=== PATIENT | female | born 1960 | race Caucasian/White ===

== ENCOUNTER 2020-03-11 | Outpatient (REF) | payer MEDICARE, OTHER, SELFPAY ==
[2020-03-11 07:54] LABS: Hematocrit 37.9 % (37-47); Hemoglobin 12.2 g/dl (12.0-16.0); Mean Corpuscular HGB Conc 32.2 g/dl (31.0-35.0); Mean Corpuscular Hemoglobin 30.2 pg (27.0-33.0); Mean Corpuscular Volume 93.8 fL (80-98); Mean Platelet Volume 10.5 fL (9.4-12.3); Platelet Count 321 X10*3/uL (160-400); Red Blood Count 4.04 X10*6/uL (4.20-5.50); Red Cell Distribution Width 13.7 % (11.0-16.0); White Blood Count 4.9 X10*3/uL (4.8-10.8)
[2020-03-11 08:23] LABS: Anion Gap 12 (12-20); Blood Urea Nitrogen 15 mg/dL (9-16); Calcium 9.2 mg/dL (8.4-10.2); Carbon Dioxide 31 mmol/L (22-29); Chloride 104 mmol/L (96-108); Estimated Glomerular Filt Rate > 60; Glucose Random 83 mg/dL (60-115); Potassium 5.2 mmol/l (3.3-5.1); Sodium 142 mmol/L (135-145)
== END 2020-03-11 00:01 | disposition home or self-care (01) ==
LOC: HO.MMNH1L
PROVIDERS: Visit Provider Family Medicine
DX: S82.92XD Unspecified fracture of left lower leg, subsequent encounter for closed fracture with routine healing (principal)
CPT/HCPCS: 36415; 80048; 85027

== ENCOUNTER 2020-03-18 | Outpatient (REF) | payer SELFPAY ==
[2020-03-18 06:25] LABS: Hematocrit 39.2 % (37-47); Hemoglobin 12.6 g/dl (12.0-16.0); Mean Corpuscular HGB Conc 32.1 g/dl (31.0-35.0); Mean Corpuscular Volume 93.3 fL (80-98); Platelet Count 285 X10*3/uL (160-400); Red Cell Distribution Width 13.6 % (11.0-16.0); White Blood Count 4.9 X10*3/uL (4.8-10.8)
[2020-03-18 07:01] LABS: Anion Gap 13 (12-20); Blood Urea Nitrogen 13 mg/dL (9-16); Calcium 9.1 mg/dL (8.4-10.2); Carbon Dioxide 30 mmol/L (22-29); Chloride 104 mmol/L (96-108); Estimated Glomerular Filt Rate > 60; Glucose Random 96 mg/dL (60-115); Sodium 142 mmol/L (135-145)
== END 2020-03-18 00:01 | disposition home or self-care (01) ==
LOC: HO.MMNH1L
PROVIDERS: Visit Provider Family Medicine
DX: S82.92XA Unspecified fracture of left lower leg, initial encounter for closed fracture (principal)
CPT/HCPCS: 36415; 80048; 85027

== ENCOUNTER 2020-04-10 15:05 | Emergency (ER) | payer MEDICARE, OTHER, SELFPAY ==
[2020-04-10 15:27] VITALS: BP 110/62; BP 118/73; PULSE 101; PULSE 105; RESP 18; TEMP 37.3; O2SAT 98; O2SAT 99; BMI 26.6
[2020-04-10 15:38] LABS: Glucose, Whole Blood 79 mg/dL (60-115)
--- NOTE | 2020-04-10 15:54 | ECG_ITS ---
Test Reason : WEAKNESS Blood Pressure : / mmHG Vent. Rate : 100 BPM Atrial Rate : 100 BPM P-R Int : 156 ms QRS Dur : 070 ms QT Int : 324 ms P-R-T Axes : 057 042 072 degrees QTc Int : 417 ms Poor data quality Normal sinus rhythm Normal ECG No significant changes seen Referred By: Meeta Henao Electronically Signed By:FEDERICO DAVILA MD
--- NOTE | 2020-04-10 15:54 | XR_ITS ---
EXAMINATION: XR CHEST CLINICAL INFORMATION: Weakness. COMPARISON: Chest done on 05/22/2019. TECHNIQUE: Frontal view of the chest was obtained. FINDINGS: Previously documented multifocal airspace disease shows interval resolution. Currently both lung bustamante are clear. The cardiac mediastinal silhouette is within normal limit. There is no pleural effusion or pneumothorax present. The heart size is within normal limit. Visualized upper abdomen is unremarkable. XR/XR chest 1V IMPRESSION: Unremarkable radiographic appearance of the chest. Interval resolution of multifocal airspace disease since 05/22/2019.
[2020-04-10 16:10] LABS: Basophils Percent Auto 0.3 % (0-2); Eosinophils Absolute Auto 0.1 X10*3/uL (0.0-0.4); Eosinophils Percent Auto 1.7 % (0-4); Hematocrit 43.6 % (37-47); Hemoglobin 13.9 g/dl (12.0-16.0); Imm Gran Abs Auto 0.02 X10*3/uL (0.00-0.03); Imm Gran Pct Auto 0.3 % (0.0-0.4); Lymphocytes Absolute Auto 0.4 X10*3/uL (1.2-4.9); Lymphocytes Percent Auto 7.1 % (20-40); MANUAL DIFF FLAG SCAN; Mean Corpuscular HGB Conc 31.9 g/dl (31.0-35.0); Mean Corpuscular Hemoglobin 29.4 pg (27.0-33.0); Mean Corpuscular Volume 92.2 fL (80-98); Monocytes Absolute Auto 0.4 X10*3/uL (0.1-1.2); Monocytes Percent Auto 7.7 % (2-11); Neutrophils Absolute Auto 4.8 X10*3/uL (2.0-8.3); Neutrophils Percent Auto 82.9 % (45-73); Platelet Count 296 X10*3/uL (160-400); Red Blood Count 4.73 X10*6/uL (4.20-5.50); Red Cell Distribution Width 13.7 % (11.0-16.0); SCAN SMEAR FLAG 1; White Blood Count 5.8 X10*3/uL (4.8-10.8)
[2020-04-10 16:12] LABS: Glucose Urine UA NEG (NEG); Leukocyte Esterase Urine NEG (NEG); Nitrite Urine NEG (NEG); Specific Gravity - Urine >= 1.030 (1.005-1.025); Urine Blood NEG (NEG); Urine Ketones 15 MG/DL (NEG); Urine Protein NEG (NEG-TRACE)
[2020-04-10 16:20] LABS: Prothrombin Time 12.4 SEC (10.8-13.0)
[2020-04-10 16:25] LABS: Appearance Urine CLEAR; Color Urine YELLOW
[2020-04-10 16:34] VITALS: BP 111/66; PULSE 93; RESP 16; O2SAT 97
[2020-04-10 16:35] LABS: Anion Gap 13 (12-20); Blood Urea Nitrogen 9 mg/dL (9-16); Calcium 8.8 mg/dL (8.4-10.2); Carbon Dioxide 30 mmol/L (22-29); Chloride 101 mmol/L (96-108); Creatinine Clr Calc Pharmacy 88.5; Estimated Glomerular Filt Rate > 60; Glucose Random 83 mg/dL (60-115); Potassium 4.3 mmol/l (3.3-5.1); Sodium 140 mmol/L (135-145)
[2020-04-10 16:42] LABS: SLIDE REVIEW VERIFIED
--- NOTE | 2020-04-10 17:16 | ED.WEAKNESS ---
HPI - Weakness General Chief complaint: Failure to Thrive Stated complaint: left knee pain Time Seen by Provider: 04/10/20 15:37 Source: patient and EMS Mode of arrival: EMS Limitations: physical limitation (Left patellar fracture) History of Present Illness HPI Narrative: 59yoF c PMHx of Left patellar fracture presenting to the ED c c/o gen weakness unable to care for herself at home including ADLs since she was released from [facility] after she was receiving rehab for her left patellar fracture. Denies any other symptoms complaints or concerns at this time. Related Data Allergies Allergy/AdvReac Type Severity Reaction Status Date / Time levofloxacin [Levaquin] Allergy Unknown Verified 11/17/17 00:00 No Known Allergies Allergy Unverified 02/22/20 17:12 [No Known Allergies*] Review of Systems Review of Systems: Constitutional : No Weight loss, No Fever, No Chills, No Night Sweats, No Fatigue, No Malaise ENT/Mouth : No Hearing loss, No Ear Pain, No Nasal Congestion, No Sinus Pain, No Hoarseness, No sore throat, No Rhinorrhea, No Swallowing Difficulty Eyes: No Eye Pain, No Swelling, No Redness, No Foreign Body, No Discharge, No Vision Changes Cardiovascular : No Chest Pain, No SOB, No Dyspnea on Exertion, No Orthopnea, No Edema, No Palpitations Respiratory : No Cough, No Sputum, No Wheezing, No Smoke Exposure, No Dyspnea Gastrointestinal : No Nausea, No Vomiting, No Diarrhea, No Constipation, No abdominal Pain, No Hematochezia, No Melena Genitourinary : no irregular bleeding, No Dysuria, No Urinary Frequency, No Hematuria, + Urinary Incontinence, No Urgency, No Flank Pain, No Urinary Flow Changes, No Hesitancy Musculoskeletal : + joint pain, No Myalgias, + Joint Swelling Skin : No Skin Lesions, No rash Neuro : No Weakness, No Numbness, No Paresthesias, No Loss of Consciousness, No Dizziness, No Headache Psych : No Anxiety/Panic, No Depression, No SI/HI/AH/VH, No Social Issues, Heme/Lymph: No Bruising, No Bleeding,No Lymphadenopathy Endocrine : No Polyuria, No Polydipsia, No Temperature Intolerance Yes all other systems are reviewed and are negative [facility] Past Medical History Attestation statement: The following information was validated with the patient. Social History Social History Advance Directives: No Advance Directives Information Provided: Yes Physical Exam Vital Signs: Vital Signs: Vital Signs Temp Pulse Resp BP Pulse Ox 04/10/20 16:34 93 16 111/66 97 04/10/20 15:27 99.2 F 101 H 18 110/62 98 Body Mass Index 26.6 vital signs have been reviewed as normal and appeared to be correct. Blood pressure normal. Heart rate normal. Respiration rate normal. Temperature normal. Oxygen saturation normal. Appearance: Alert. Oriented X3. No acute distress. Poor hygiene. Head: Normal external exam. Normocephalic. Patient noted to have old well healing ecchymosis to left upper eyelid/eyebrow. Eyes: PERRLA. EOMI. Conjunctiva and sclera normal. the rest of the Eyelids normal. ENT: EAC normal. TM's Normal. Pharynx normal. Uvula midline. Moist mucous membranes. Neck: Normal inspection. Neck supple. FROM. No meningeal signs. CVS: Normal heart rate and rhythm. Heart sound normal. No murmurs noted. Pulses normal throughout. Respiratory: No respiratory distress. Painless inspiration. Breath sounds normal. No wheezes/rales/rhonchi noted. Chest nontender. No accessory muscle usage noted or decreased air movement noted. Abdomen: Soft and nontender. Bowel sounds normal in all 4 quadrants. No distention noted. No organomegaly noted. No visible injury noted. Back: No CVA tenderness. Full range of motion noted. Skin: Patient has erythema to the groin area consistent with candidiasis a few wounds also noted. Patient was covered in urine and feces. Otherwise the restof the Skin warm and dry. Normal skin color. Normal skin turgor. No lacerations noted. Extremities: TTP of left knee at the patellar aspect c mild sts. No lower extremity edema. All other Extremities exhibit normal range of motion and nontender. Neuro: Oriented X 3. No motor deficit. No sensory deficit. Reflexes normal. Course Course Course Narrative: 16:30PM - 59yoF c PMHx of Left patellar fracture presenting to the ED c c/o gen weakness unable to care for herself at home including ADLs since she was released from [facility] after she was receiving rehab for her left patellar fracture. - on exam patient has very poor hygiene feces and urines under her nails, feces and urine stuck to her skin diaper is soaked in urine and feces. Otherwise no acute distress and vital signs are within normal limits. - will obtain labs, EKG. In house COVID swab. Case management consult along with PT. Then plan is for bed search for rehab. Sign-out to dilma at this time. MDM - Weakness Medical Records Attestation: I reviewed the patient's medical records. Lab Data Attestation: I reviewed the patient's lab results. Result diagrams: 04/10/20 16:00 04/10/20 16:00 Labs: Lab Results 04/10/20 04/10/20 04/10/20 Range/Units 15:20 16:00 16:00 WBC 5.8 (4.8-10.8) X10*3/uL RBC 4.73 (4.20-5.50) X10*6/uL Hgb 13.9 (12.0-16.0) g/dl Hct 43.6 (37-47) % MCV 92.2 (80-98) fL MCH 29.4 (27.0-33.0) pg MCHC 31.9 (31.0-35.0) g/dl RDW 13.7 (11.0-16.0) % Plt Count 296 (160-400) X10*3/uL MPV 9.0 L (9.4-12.3) fL Immature Gran % (Auto) 0.3 (0.0-0.4) % Neut % (Auto) 82.9 H (45-73) % Lymph % (Auto) 7.1 L (20-40) % [place] % (Auto) 7.7 (2-11) % Eos % (Auto) 1.7 (0-4) % Baso % (Auto) 0.3 (0-2) % Lymph # (Auto) 0.4 L (1.2-4.9) X10*3/uL [place] # (Auto) 0.4 (0.1-1.2) X10*3/uL Eos # (Auto) 0.1 (0.0-0.4) X10*3/uL Baso # (Auto) 0.0 (0.0-0.2) X10*3/uL Abs Immat Gran (auto) 0.02 (0.00-0.03) X10*3/uL Absolute Neuts (auto) 4.8 (2.0-8.3) X10*3/uL Absolute Nucleated RBC 0.000 (0.0-0.012) X10*3/uL Nucleated RBC % (auto) 0.0 (0.0-0.2) /100WBC Smear Tech's Comments VERIFIED PT 12.4 (10.8-13.0) SEC INR 1.0 (0.9-1.1) Sodium (135-145) mmol/L Potassium (3.3-5.1) mmol/l Chloride (96-108) mmol/L Carbon Dioxide (22-29) mmol/L Anion Gap (12-20) BUN (9-16) mg/dL Creatinine (0.5-1.4) mg/dL Estim Creat Clear Calc Estimated GFR POC Glucose 79 (60-115) mg/dL Random Glucose (60-115) mg/dL Calcium (8.4-10.2) mg/dL Magnesium (1.6-2.6) mg/dL Urine Color Urine Appearance Urine pH (5.0-8.0) Ur Specific [place] (1.005-1.025) Urine Protein (NEG-TRACE) MG/DL Urine Glucose (UA) (NEG) MG/DL Urine Ketones (NEG) MG/DL Urine Blood (NEG) Urine Nitrite (NEG) Ur Leukocyte Esterase (NEG) 04/10/20 04/10/20 Range/Units 16:00 16:00 WBC (4.8-10.8) X10*3/uL RBC (4.20-5.50) X10*6/uL Hgb (12.0-16.0) g/dl Hct (37-47) % MCV (80-98) fL MCH (27.0-33.0) pg MCHC (31.0-35.0) g/dl RDW (11.0-16.0) % Plt Count (160-400) X10*3/uL MPV (9.4-12.3) fL Immature Gran % (Auto) (0.0-0.4) % Neut % (Auto) (45-73) % Lymph % (Auto) (20-40) % [place] % (Auto) (2-11) % Eos % (Auto) (0-4) % Baso % (Auto) (0-2) % Lymph # (Auto) (1.2-4.9) X10*3/uL [place] # (Auto) (0.1-1.2) X10*3/uL Eos # (Auto) (0.0-0.4) X10*3/uL Baso # (Auto) (0.0-0.2) X10*3/uL Abs Immat Gran (auto) (0.00-0.03) X10*3/uL Absolute Neuts (auto) (2.0-8.3) X10*3/uL Absolute Nucleated RBC (0.0-0.012) X10*3/uL Nucleated RBC % (auto) (0.0-0.2) /100WBC Smear Tech's Comments PT (10.8-13.0) SEC INR (0.9-1.1) Sodium 140 (135-145) mmol/L Potassium 4.3 (3.3-5.1) mmol/l Chloride 101 (96-108) mmol/L Carbon Dioxide 30 H (22-29) mmol/L Anion Gap 13 (12-20) BUN 9 (9-16) mg/dL Creatinine 0.69 (0.5-1.4) mg/dL Estim Creat Clear Calc 88.5 Estimated GFR > 60 POC Glucose (60-115) mg/dL Random Glucose 83 (60-115) mg/dL Calcium 8.8 (8.4-10.2) mg/dL Magnesium 2.0 (1.6-2.6) mg/dL Urine Color YELLOW Urine Appearance CLEAR Urine pH 6.0 (5.0-8.0) Ur Specific [place] >= 1.030 H (1.005-1.025) Urine Protein NEG (NEG-TRACE) MG/DL Urine Glucose (UA) NEG (NEG) MG/DL Urine Ketones 15 (NEG) MG/DL Urine Blood NEG (NEG) Urine Nitrite NEG (NEG) Ur Leukocyte Esterase NEG (NEG) ECG Data Attestation: I personally reviewed and interpreted this ECG as follows: ECG interpretation date: 04/10/20 ECG interpretation time: 15:30 Interpretation: Normal sinus rhythm with a ventricular rate of 100 with a normal FL interval with a normal QRS duration normal QT/QTC duration. No acute ischemic changes noted. Similar compared to prior 05/25/2019.
[2020-04-10 17:37] LABS: SARS COV2 PCR INHOUSE NEGATIVE (Negative)
[2020-04-10 17:55] VITALS: O2SAT 99
[2020-04-10 17:56] VITALS: BP 117/61; PULSE 94; RESP 18; TEMP 36.6; O2SAT 98
[2020-04-10] MEDS: Nystatin Powder 15 GM BOTTLE 1 APPL TOPICAL (18:03)
[2020-04-10 20:07] VITALS: BP 114/68; PULSE 89; RESP 18; TEMP 37; O2SAT 94
[2020-04-10 21:42] VITALS: BP 104/53; PULSE 96; RESP 16; TEMP 36.4; O2SAT 97
--- NOTE | 2020-04-10 21:44 | PC.NURSE ---
PT MOVED TO [facility] 11 FROM RM 17, FIRST CONTACT WITH PT. NO DISTRESS NOTED. REPORTS SHE MISSED DINNER AND IS HUNGRY, SANDWICH AND PO FLUIDS PROVIDED. AWAITING CASE MANAGEMNT AND PT EVAL IN AM. AWARE OF PLAN OF CARE.
--- NOTE | 2020-04-10 21:57 | PC.NURSE ---
PATIENT WAS REPOSITION ,ALSO HAD A [employer] SANDWICH AND ANABELA JESUS .
--- NOTE | 2020-04-10 22:04 | PC.NURSE ---
ATTEMPTED TO RECONCILE PT MEDS- SHE ONLY HAS 1 MED ON HER, DOES NOT KNOW OTHER MEDICATION DOSES. RECEIVES MEDS THROUGH MAIL. UNABLE TO VERIFY WITH PHARMACY.
--- NOTE | 2020-04-10 22:23 | PC.NURSE ---
THIS RN SPOKE WITH AGNES WHO PROVIDED SOME MORE INFO REGARDING HOME MEDS YET STILL DID NOT KNOW EXACT DOSAGES AND FREQUENCIES ON SOME. AGNES PHONE #[phone].
--- NOTE | 2020-04-10 23:21 | PC.NURSE ---
REPORT GIVEN TO STEPHANY HERNANDEZ.
[2020-04-11] MEDS: Baclofen 20 MG TABLET PO (03:54)
[2020-04-11 07:30] VITALS: BP 108/60; PULSE 96; RESP 16; TEMP 36.6; O2SAT 98
--- NOTE | 2020-04-11 07:34 | XR_ITS ---
EXAMINATION: XR KNEE, LEFT CLINICAL INFORMATION: Follow-up left distal femur fracture. COMPARISON: 02/13/2020 and 02/29/2020. TECHNIQUE: AP and lateral views of the left knee. FINDINGS: Bones appear to be diffusely osteoporotic. Moderately displaced, oblique fracture of the distal femoral metaphysis. Approximately 1.7 cm medial and posterior displacement of the distal femoral fragment, and mild lateral angulation of the distal fragment. The position of distal femoral fragment is unchanged. Interval increased callus formation along the posteromedial margin of the fracture. No overt knee joint effusion. Old, healed fracture of the proximal tibial metaphysis. XR/XR knee LT 3V IMPRESSION: Interval increased marginal callus formation at the moderately displaced, malpositioned distal femur fracture. No change in fragment position compared to 02/29/2020.
[2020-04-11 07:39] VITALS: BP 108/60; PULSE 96; O2SAT 98
--- NOTE | 2020-04-11 08:51 | PC.NURSE ---
PT NEEDS BEING MET REPOSITIONED IN STRETCHER. EATING BREAKFAST AT THIS TIME
--- NOTE | 2020-04-11 12:40 | MHC.CM.ED ---
Received case management consult overnight. Patient came to ER due to left knee pain. Patient was recently discharged from [facility]. She feels she was discharged too soon. Physical therapy eval completed. Short term rehab is recommended. Patient requesting to return to [facility]. [facility] does not have a bed today. List of facilities provided to patient. [facility]. Referral made via [employer]. Continue to monitor for d/c needs.
--- NOTE | 2020-04-11 15:06 | MHC.CM.ED ---
Received telephone call from . He is requesting referral to [facility]. [facility] They are not able to offer a bed because patient was caught smoking in the bathroom on her last admission. [facility] is able to offer a bed. Patient can leave at 530pm. [facility] booked. [facility] with chart. Patient, Mr Valenzuela, Lakia Rn and Anni Elizabeth aware. Continue to monitor for d/c needs.
[2020-04-11 16:00] VITALS: BP 110/68; PULSE 78; RESP 20; TEMP 36.6; O2SAT 98
[2020-04-11 17:26] VITALS: BP 108/64; PULSE 72; RESP 16; TEMP 36.4; O2SAT 98
== END 2020-04-11 18:02 | disposition skilled nursing facility (03) ==
PROVIDERS: Physician Assistant Medical; Emergency Provider Emergency Medicine
DX: M25.562 Pain in left knee (principal); R62.7 Adult failure to thrive; Z79.899 Other long term (current) drug therapy; Z20.828 Contact with and (suspected) exposure to other viral communicable diseases
CPT/HCPCS: 36415; 71045; 73562; 80048; 81003; 82947; 83735; 85025; 85610; 93005; 97162; 99285; U0003

== ENCOUNTER 2020-04-18 08:59 | Outpatient (REF) | payer MEDICARE, OTHER, SELFPAY ==
--- NOTE | 2020-04-18 09:12 | XR_ITS ---
EXAMINATION: XR KNEE, LEFT CLINICAL INFORMATION: Fracture lower end of the femur. COMPARISON: X-rays of the left knee most recent February 2020. TECHNIQUE: 2 views of the left knee. FINDINGS: The oblique distal diametaphyseal fracture of the femur is redemonstrated with unchanged alignment allowing for slight differences in projection. There is approximately 2 cm of medial and 1.7 cm posterior displacement of the distal fragment. This slight persistent apex anterior angulation. There is proximal displacement of the distal fragment with approximately 3.5 cm of bony overriding related to the fracture. There is no appreciable change in the callus summation crossing the fracture line. There is mild surrounding soft tissue swelling. There is a small joint effusion. There is persistent deformity of the proximal tibia related to the impacted tibial plateau fracture seen previously. Sclerosis is noted along the fracture line, consistent with interval healing with mild stable resultant deformity. XR/XR knee LT 2V IMPRESSION: No change in the appearance of left knee with healing distal femur fracture and healed tibial plateau fracture.
== END 2020-04-18 09:00 | disposition home or self-care (01) ==
LOC: HO.HOSX 08:59
PROVIDERS: Visit Provider Physician Assistant
DX: S72.409D Unspecified fracture of lower end of unspecified femur, subsequent encounter for closed fracture with routine healing (principal)
CPT/HCPCS: 73560; 99212

== ENCOUNTER 2021-02-12 05:58 | Emergency (ER) | payer MEDICARE, OTHER, SELFPAY ==
--- NOTE | ~2021-02-12 | XR_ITS ---
EXAMINATION: XR CHEST CLINICAL INFORMATION: Altered mental status COMPARISON: 04/10/2020 TECHNIQUE: Frontal view of the chest was obtained. FINDINGS: No significant abnormality is noted involving the heart, lungs, mediastinum, bony thorax or soft tissues. XR/XR chest 1V IMPRESSION: Unremarkable examination.
--- NOTE | ~2021-02-12 | CT_ITS ---
EXAMINATION: CT HEAD WITHOUT CONTRAST CLINICAL INFORMATION: Altered mental status. COMPARISON: Head CT from 04/06/2019 TECHNIQUE: Contiguous axial imaging was performed from the skull base to vertex without intravenous administration of contrast. This CT examination was performed using dose optimization techniques as appropriate, variously including the following: *Automated exposure control *Adjustment of mA and/or kV according to patient size (this includes techniques or standardized protocols for targeted exams where dose is matched to indication/reason for exam; i.e. extremities or head) *Use of iterative reconstruction technique DLP: 605 mGy-cm FINDINGS: Atherosclerotic calcification of cavernous carotid arteries. Mild patchy hypoattenuation within deep and periventricular white matter compatible with sequela of mild microangiopathy. The carcamo-white matter differentiation is maintained. No evidence of an acute major vascular territory infarction. No intracranial hemorrhage, extra-axial fluid collection, focal mass effect or midline shift. The ventricles have normal size and configuration; no hydrocephalus. The cerebellar tonsils are in normal position. The calvarium is intact. The visualized paranasal sinuses, mastoid air cells and middle ear cavities are well aerated. The orbits, globes and temporomandibular joints are unremarkable. CT/CT head/brain wo con IMPRESSION: No hemorrhage or other acute intracranial pathology compared to 04/06/2019.
[2021-02-12 06:11] VITALS: BP 112/62; BP 132/76; PULSE 109; PULSE 112; RESP 18; TEMP 36.5; O2SAT 97; BMI 30.6
--- NOTE | 2021-02-12 06:45 | PC.NURSE ---
pt to room from home and unsure why she is here. IV placed, labs drawn to lab.
[2021-02-12 06:52] LABS: Venous Blood Gas Refer to POC result
[2021-02-12 06:53] LABS: VBG Base Excess 2.6 mmol/L; VBG HCO3 27 mmol/L (22-26); VBG pCO2 41 mmHg; VBG pH 7.42 (7.32-7.43); VBG pO2 34 mmHg
[2021-02-12 06:56] LABS: Basophils Percent Auto 0.1 % (0-2); Eosinophils Percent Auto 0.1 % (0-4); Hematocrit 39.1 % (37-47); Imm Gran Abs Auto 0.04 X10*3/uL (0.00-0.03); Imm Gran Pct Auto 0.4 % (0.0-0.4); Lymphocytes Absolute Auto 0.3 X10*3/uL (1.2-4.9); Lymphocytes Percent Auto 3.4 % (20-40); MANUAL DIFF FLAG SCAN; Mean Corpuscular HGB Conc 33.2 g/dl (31.0-35.0); Mean Corpuscular Volume 93.3 fL (80-98); Mean Platelet Volume 9.4 fL (9.4-12.3); Monocytes Absolute Auto 0.5 X10*3/uL (0.1-1.2); Monocytes Percent Auto 5.6 % (2-11); Neutrophils Absolute Auto 8.7 X10*3/uL (2.0-8.3); Neutrophils Percent Auto 90.4 % (45-73); Platelet Count 292 X10*3/uL (160-400); Red Blood Count 4.19 X10*6/uL (4.20-5.50); Red Cell Distribution Width 14.6 % (11.0-16.0); SCAN SMEAR FLAG 1; White Blood Count 9.6 X10*3/uL (4.8-10.8)
[2021-02-12 07:02] LABS: IDNOW Serial# 55D5AD1C
[2021-02-12 07:06] LABS: COVID-19 Test Negative (Negative)
--- NOTE | 2021-02-12 07:06 | PC.NURSE ---
labs hemolyzed and being redrawn at this time. pt alert, respirations easy, n/l. skin w/d. will continue to monitor pt.
--- NOTE | 2021-02-12 07:07 | ED.GENADULT ---
HPI - General Adult General Chief complaint: Altered Mental Status Stated complaint: AMS Time Seen by Provider: 02/12/21 06:02 Source: patient and EMS Mode of arrival: EMS Limitations: no limitations History of Present Illness HPI narrative: 60-year-old female came in for evaluation of altered mental status. This is a 60-year-old female who was bed ridden due to MS and chronic left-sided weakness after multiple bone fractures, patient taking tramadol for chronic back pain, patient needed to take 1 extra pill of tramadol last night for the back pain, has reportedly by the patient was driving around her scooter. Patient presented this morning to the emergency department patient is awake and alert able to give a full history which is consistent with EMS/ stories. Patient otherwise complains of no acute symptoms. Related Data Home Medications Medication Instructions Recorded Confirmed Ambien 10 mg BEDTIME 04/10/20 04/10/20 Soma TID PRN 04/10/20 aspirin 325 mg tablet 325 mg PO DAILY 04/10/20 04/10/20 atorvastatin 80 mg tablet (Lipitor) DAILY 04/10/20 baclofen 20 mg 04/10/20 dimethyl fumarate 240 mg 240 mg PO BID 04/10/20 04/10/20 capsule,delayed release mirtazapine 15 mg tablet 15 mg PO BEDTIME 04/10/20 04/10/20 tramadol 50 mg tablet mg 04/10/20 baclofen 20 mg tablet 20 mg PO DAILY 04/17/20 dimethyl fumarate 240 mg 240 mg PO BID 04/17/20 capsule,delayed release (Tecfidera) gabapentin 300 mg capsule 300 mg PO DAILY 04/17/20 Previous Rx's Medication Instructions Recorded leg brace (Knee Support Brace) #1 ea 04/24/20 leg brace (Knee Support Brace) #1 ea 04/25/20 oxycodone 5 mg tablet 5 mg PO Q12H PRN 7 Days #14 tab 06/11/20 Allergies Allergy/AdvReac Type Severity Reaction Status Date / Time No Known Allergies Allergy Verified 04/18/20 09:07 Review of Systems Review of Systems: All other systems are reviewed and are negative Constitutional: Reports as per HPI and Reports no additional constitutional complaints Eyes: Reports as per HPI and Reports no additional eye complaints Reports system reviewed and no additional complaints, except as documented Cardiovascular: Reports as per HPI and Reports no additional cardiovascular complaints Respiratory: Reports as per HPI and Reports no additional respiratory complaints Gastrointestinal: Reports as per HPI and Reports no additional gastrointestinal complaints Genitourinary: Reports no additional female genitourinary complaints Musculoskeletal: Reports no additional musculoskeletal complaints Skin/Breast: Reports system reviewed and no additional complaints, except as docu Psychiatric: Reports no additional psychiatric complaints Endocrine: Reports no additional endocrine complaints Hematologic/Lymphatic: Reports no additional hematologic/lymphatic complaints Allergic/Immunologic: Reports no additional allergic/immunologic complaints Reports system reviewed and no additional complaints, except as documented and Reports Abnormal speech present [facility] Past Medical History Medical History Femoral distal fracture Fracture of left tibial plateau Frequent falls Hemiparesis of left nondominant side Hyperlipidemia Left hemiparesis Left humeral fracture Multiple sclerosis Polysubstance abuse Seizure disorder Social History Social History Alcohol intake: unknown Advance Directives: No Advance Directives Information Provided: No Physical Exam Vital Signs: Vital Signs: Last Vital Signs Temp 97.7 F 02/12/21 06:11 Pulse 101 H 02/12/21 09:13 Resp 16 02/12/21 09:13 BP 116/64 02/12/21 09:13 Pulse Ox 98 02/12/21 09:13 Body Mass Index 30.6 Vital signs have been reviewed as appeared to be correct. Blood pressure normal. Heart rate normal. Respiration rate normal. Temperature normal. Oxygen saturation normal. Appearance: Alert. Oriented X3. No acute distress. Head: Normal external exam. Normocephalic. Atraumatic. No Casas signs noted. No raccoon eyes noted Eyes: PERRLA. EOMI. Conjunctiva and sclera normal. Eyelids normal. ENT: TM's Normal. Pharynx normal. Uvula midline. Moist mucous membranes. No trismus noted. No drooling noted. No muffled voice noted. Neck: Normal inspection. Neck supple. FROM. No adenopathy. Thyroid Normal. No meningeal signs. No neck mass noted. CVS: Normal heart rate and rhythm. Heart sound normal. No murmurs noted. Pulses normal throughout. Respiratory: No respiratory distress. Painless inspiration. Breath sounds normal. No wheezes/rales/rhonchi noted. Chest nontender. No accessory muscle usage noted or decreased air movement noted. Abdomen: Soft and nontender. Bowel sounds normal in all 4 quadrants. No distention noted. No organomegaly noted. No visible injury noted. Back: No CVA tenderness. Full range of motion noted. Skin: Skin warm and dry. Normal skin color. Normal skin turgor. No rashes/lesions/lacerations noted. Extremities: No lower extremity edema. Extremities exhibit normal range of motion. Extremities nontender. Neuro: Oriented X 3. Cranial nerve exam: II-XII are grossly intact No motor deficit. No sensory deficit. Reflexes normal. Course Course Course Narrative: Assessment and plan. 60-year-old female's taking tramadol for chronic back pain patient took 1 extra pill last night and acted slightly out of ordinary, patient kept in the emergency department for few hours for observation and monitoring patient's behavior, patient has been found quite at her normal baseline, patient has no complaint. Will discharge the patient to follow-up with PCP patient was instructed to only take her medication as instructed. Medical Decision Making Lab Data Lab results reviewed: Yes I reviewed the patient's lab results. Result diagrams: 02/12/21 06:42 02/12/21 07:47 Labs: Lab Results 02/12/21 02/12/21 02/12/21 Range/Units 06:42 06:42 06:42 WBC 9.6 (4.8-10.8) X10*3/uL RBC 4.19 L (4.20-5.50) X10*6/uL Hgb 13.0 (12.0-16.0) g/dl Hct 39.1 (37-47) % MCV 93.3 (80-98) fL MCH 31.0 (27.0-33.0) pg MCHC 33.2 (31.0-35.0) g/dl RDW 14.6 (11.0-16.0) % Plt Count 292 (160-400) X10*3/uL MPV 9.4 (9.4-12.3) fL Immature Gran % (Auto) 0.4 (0.0-0.4) % Neut % (Auto) 90.4 H (45-73) % Lymph % (Auto) 3.4 L (20-40) % Rush % (Auto) 5.6 (2-11) % Eos % (Auto) 0.1 (0-4) % Baso % (Auto) 0.1 (0-2) % Lymph # (Auto) 0.3 L (1.2-4.9) X10*3/uL Rush # (Auto) 0.5 (0.1-1.2) X10*3/uL Eos # (Auto) 0.0 (0.0-0.4) X10*3/uL Baso # (Auto) 0.0 (0.0-0.2) X10*3/uL Abs Immat Gran (auto) 0.04 H (0.00-0.03) X10*3/uL Absolute Neuts (auto) 8.7 H (2.0-8.3) X10*3/uL Absolute Nucleated RBC 0.000 (0.0-0.012) X10*3/uL Nucleated RBC % (auto) 0.0 (0.0-0.2) /100WBC Smear Tech's Comments VERIFIED VBG pH (7.32-7.43) VBG pCO2 mmHg VBG pO2 mmHg VBG HCO3 (22-26) mmol/L VBG O2 Saturation % VBG Base Excess mmol/L Sodium (135-145) mmol/L Potassium (3.3-5.1) mmol/L Chloride (96-108) mmol/L Carbon Dioxide (22-29) mmol/L Anion Gap (12-20) BUN (9-16) mg/dL Creatinine (0.5-1.4) mg/dL Estim Creat Clear Calc Estimated GFR Random Glucose (60-115) mg/dL Calcium (8.4-10.2) mg/dL Magnesium (1.6-2.6) mg/dL Total Bilirubin (0.0-1.0) mg/dL Direct Bilirubin (0.0-0.5) mg/dL AST (5-31) U/L ALT (0-31) U/L Alkaline Phosphatase (39-117) U/L Troponin I High Sens (<3.5-17.0) ng/L Total Protein (6.5-8.0) g/dL Albumin (3.5-5.0) g/dL Lipase (8-78) U/L Urine Color Urine Appearance Urine pH (5.0-8.0) Ur Specific [place] (1.005-1.025) Urine Protein (NEG-TRACE) MG/DL Urine Glucose (UA) (NEG) MG/DL Urine Ketones (NEG) MG/DL Urine Blood (NEG) Urine Nitrite (NEG) Ur Leukocyte Esterase (NEG) Urine RBC (0) /HPF Urine WBC (0-4) /HPF Ur Squamous Epith Cells /LPF Urine Bacteria /LPF Salicylates (15-30) mg/dL Urine Opiates Screen (Not Detect) Urine Fentanyl Screen (Not Detect) Acetaminophen (<30) mcg/mL Ur Barbiturates Screen (Not Detect) Ur Phencyclidine Scrn (Not Detect) Ur Amphetamines Screen (Not Detect) U Benzodiazepines Scrn (Not Detect) Urine Cocaine Screen (Not Detect) U Marijuana (THC) Screen (Not Detect) Ethyl Alcohol < 10 mg/dL COVID-19 (ALESSANDRA) Negative (Negative) COVID-19 Clin Com See Note 02/12/21 02/12/21 02/12/21 Range/Units 06:42 06:48 07:47 WBC (4.8-10.8) X10*3/uL RBC (4.20-5.50) X10*6/uL Hgb (12.0-16.0) g/dl Hct (37-47) % MCV (80-98) fL MCH (27.0-33.0) pg MCHC (31.0-35.0) g/dl RDW (11.0-16.0) % Plt Count (160-400) X10*3/uL MPV (9.4-12.3) fL Immature Gran % (Auto) (0.0-0.4) % Neut % (Auto) (45-73) % Lymph % (Auto) (20-40) % Rush % (Auto) (2-11) % Eos % (Auto) (0-4) % Baso % (Auto) (0-2) % Lymph # (Auto) (1.2-4.9) X10*3/uL Rush # (Auto) (0.1-1.2) X10*3/uL Eos # (Auto) (0.0-0.4) X10*3/uL Baso # (Auto) (0.0-0.2) X10*3/uL Abs Immat Gran (auto) (0.00-0.03) X10*3/uL Absolute Neuts (auto) (2.0-8.3) X10*3/uL Absolute Nucleated RBC (0.0-0.012) X10*3/uL Nucleated RBC % (auto) (0.0-0.2) /100WBC Smear Tech's Comments VBG pH 7.42 (7.32-7.43) VBG pCO2 41 mmHg VBG pO2 34 mmHg VBG HCO3 27 H (22-26) mmol/L VBG O2 Saturation 56.0 % VBG Base Excess 2.6 mmol/L Sodium 141 (135-145) mmol/L Potassium 4.5 (3.3-5.1) mmol/L Chloride 106 (96-108) mmol/L Carbon Dioxide 27 (22-29) mmol/L Anion Gap 13 (12-20) BUN 11 (9-16) mg/dL Creatinine 0.74 (0.5-1.4) mg/dL Estim Creat Clear Calc 87.0 Estimated GFR > 60 Random Glucose 115 D (60-115) mg/dL Calcium 9.3 (8.4-10.2) mg/dL Magnesium 2.2 (1.6-2.6) mg/dL Total Bilirubin 0.3 (0.0-1.0) mg/dL Direct Bilirubin < 0.2 (0.0-0.5) mg/dL AST 13 (5-31) U/L ALT 13 (0-31) U/L Alkaline Phosphatase 92 (39-117) U/L Troponin I High Sens < 3.5 (<3.5-17.0) ng/L Total Protein 6.7 (6.5-8.0) g/dL Albumin 4.1 (3.5-5.0) g/dL Lipase 30 (8-78) U/L Urine Color Urine Appearance Urine pH (5.0-8.0) Ur Specific [place] (1.005-1.025) Urine Protein (NEG-TRACE) MG/DL Urine Glucose (UA) (NEG) MG/DL Urine Ketones (NEG) MG/DL Urine Blood (NEG) Urine Nitrite (NEG) Ur Leukocyte Esterase (NEG) Urine RBC (0) /HPF Urine WBC (0-4) /HPF Ur Squamous Epith Cells /LPF Urine Bacteria /LPF Salicylates < 5.0 L (15-30) mg/dL Urine Opiates Screen (Not Detect) Urine Fentanyl Screen (Not Detect) Acetaminophen < 1 (<30) mcg/mL Ur Barbiturates Screen (Not Detect) Ur Phencyclidine Scrn (Not Detect) Ur Amphetamines Screen (Not Detect) U Benzodiazepines Scrn (Not Detect) Urine Cocaine Screen (Not Detect) U Marijuana (THC) Screen (Not Detect) Ethyl Alcohol mg/dL COVID-19 (ALESSANDRA) (Negative) COVID-19 Clin Com 02/12/21 02/12/21 Range/Units 08:13 08:13 WBC (4.8-10.8) X10*3/uL RBC (4.20-5.50) X10*6/uL Hgb (12.0-16.0) g/dl Hct (37-47) % MCV (80-98) fL MCH (27.0-33.0) pg MCHC (31.0-35.0) g/dl RDW (11.0-16.0) % Plt Count (160-400) X10*3/uL MPV (9.4-12.3) fL Immature Gran % (Auto) (0.0-0.4) % Neut % (Auto) (45-73) % Lymph % (Auto) (20-40) % Rush % (Auto) (2-11) % Eos % (Auto) (0-4) % Baso % (Auto) (0-2) % Lymph # (Auto) (1.2-4.9) X10*3/uL Rush # (Auto) (0.1-1.2) X10*3/uL Eos # (Auto) (0.0-0.4) X10*3/uL Baso # (Auto) (0.0-0.2) X10*3/uL Abs Immat Gran (auto) (0.00-0.03) X10*3/uL Absolute Neuts (auto) (2.0-8.3) X10*3/uL Absolute Nucleated RBC (0.0-0.012) X10*3/uL Nucleated RBC % (auto) (0.0-0.2) /100WBC Smear Tech's Comments VBG pH (7.32-7.43) VBG pCO2 mmHg VBG pO2 mmHg VBG HCO3 (22-26) mmol/L VBG O2 Saturation % VBG Base Excess mmol/L Sodium (135-145) mmol/L Potassium (3.3-5.1) mmol/L Chloride (96-108) mmol/L Carbon Dioxide (22-29) mmol/L Anion Gap (12-20) BUN (9-16) mg/dL Creatinine (0.5-1.4) mg/dL Estim Creat Clear Calc Estimated GFR Random Glucose (60-115) mg/dL Calcium (8.4-10.2) mg/dL Magnesium (1.6-2.6) mg/dL Total Bilirubin (0.0-1.0) mg/dL Direct Bilirubin (0.0-0.5) mg/dL AST (5-31) U/L ALT (0-31) U/L Alkaline Phosphatase (39-117) U/L Troponin I High Sens (<3.5-17.0) ng/L Total Protein (6.5-8.0) g/dL Albumin (3.5-5.0) g/dL Lipase (8-78) U/L Urine Color YELLOW Urine Appearance CLEAR Urine pH 6.0 (5.0-8.0) Ur Specific [place] 1.020 (1.005-1.025) Urine Protein NEG (NEG-TRACE) MG/DL Urine Glucose (UA) NEG (NEG) MG/DL Urine Ketones NEG (NEG) MG/DL Urine Blood 2+ H (NEG) Urine Nitrite NEG (NEG) Ur Leukocyte Esterase 1+ H (NEG) Urine RBC 1-4 (0) /HPF Urine WBC 1-4 (0-4) /HPF Ur Squamous Epith Cells 1+ /LPF Urine Bacteria TRACE /LPF Salicylates (15-30) mg/dL Urine Opiates Screen Not Detected (Not Detect) Urine Fentanyl Screen Not Detected (Not Detect) Acetaminophen (<30) mcg/mL Ur Barbiturates Screen Not Detected (Not Detect) Ur Phencyclidine Scrn Not Detected (Not Detect) Ur Amphetamines Screen Not Detected (Not Detect) U Benzodiazepines Scrn Not Detected (Not Detect) Urine Cocaine Screen Not Detected (Not Detect) U Marijuana (THC) Screen Not Detected (Not Detect) Ethyl Alcohol mg/dL COVID-19 (ALESSANDRA) (Negative) COVID-19 Clin Com Imaging Data CT scan - head: Radiologist's impression: No hemorrhage or other acute intracranial pathology compared to 04/06/2019. Chest x-ray: Radiologist's impression: Unremarkable examination. Discharge Plan Discharge Clinical Impression: Drug side effects Patient Disposition: Home, Self-Care Instructions: Tramadol (By mouth) Additional Instructions: Taking medicine as instructed. Prescriptions: No Action (DME) Knee Support Brace Misc See Rx Instructions .MEDSUPPLY Qty: 1 RF: 0 (DME) Knee Support Brace Misc See Rx Instructions .MEDSUPPLY Qty: 1 RF: 0 oxycodone 5 mg tablet 5 mg PO Q12H PRN (Reason: pain) 7 Days Qty: 14 RF: 0 Ambien 10 mg BEDTIME RF: 0 aspirin 325 mg Tablet 325 mg PO DAILY RF: 0 dimethyl fumarate 240 mg Capsule,Delayed Release(Dr/Ec) 240 mg PO BID RF: 0 Soma TID PRN (Reason: Pain) RF: 0 baclofen 20 mg RF: 0 atorvastatin [Lipitor] 80 mg Tablet DAILY RF: 0 tramadol 50 mg Tablet RF: 0 mirtazapine 15 mg Tablet 15 mg PO BEDTIME RF: 0 Referrals: Physician,Unknown [Primary Care Provider] - 2 days
[2021-02-12 07:12] LABS: Troponin-I High Sensitivity < 3.5 ng/L (<3.5-17.0)
[2021-02-12 07:19] LABS: SLIDE REVIEW VERIFIED
--- NOTE | 2021-02-12 07:51 | ECG_ITS ---
Test Reason : ALTERED MENTAL Blood Pressure : / mmHG Vent. Rate : 109 BPM Atrial Rate : 109 BPM P-R Int : 140 ms QRS Dur : 074 ms QT Int : 336 ms P-R-T Axes : 066 047 090 degrees QTc Int : 452 ms Sinus tachycardia Low voltage QRS Nonspecific T wave abnormality Abnormal ECG When compared with ECG of 10-APR-2020 15:30, No significant change was found Referred By: Alyson Wheatley Electronically Signed By:SEAN MENDEZ
[2021-02-12 08:07] LABS: Ethanol < 10 mg/dL
[2021-02-12 08:11] LABS: Acetaminophen LAB < 1 mcg/mL (<30); Alanine Aminotransferase 13 U/L (0-31); Albumin Level 4.1 g/dL (3.5-5.0); Alkaline Phosphatase 92 U/L (39-117); Anion Gap 13 (12-20); Aspartate Amino Transferase 13 U/L (5-31); Bilirubin Direct < 0.2 mg/dL (0.0-0.5); Bilirubin Total 0.3 mg/dL (0.0-1.0); Blood Urea Nitrogen 11 mg/dL (9-16); Calcium 9.3 mg/dL (8.4-10.2); Carbon Dioxide 27 mmol/L (22-29); Chloride 106 mmol/L (96-108); Estimated Glomerular Filt Rate > 60; Glucose Random 115 mg/dL (60-115); Lipase 30 U/L (8-78); Magnesium 2.2 mg/dL (1.6-2.6); Potassium 4.5 mmol/L (3.3-5.1); Sodium 141 mmol/L (135-145); Total Protein 6.7 g/dL (6.5-8.0)
[2021-02-12 08:22] LABS: Salicylate < 5.0 mg/dL (15-30)
[2021-02-12 08:22] LABS: Appearance Urine CLEAR; Color Urine YELLOW; Glucose Urine UA NEG (NEG); Leukocyte Esterase Urine 1+ (NEG); Nitrite Urine NEG (NEG); UACC Culture Trigger YES; Urine Blood 2+ (NEG); Urine Ketones NEG (NEG); Urine Protein NEG (NEG-TRACE)
[2021-02-12 08:32] LABS: Squamous Epithelial Cell Urine 1+ /LPF
[2021-02-12 08:33] LABS: Bacteria Urine TRACE /LPF
[2021-02-12 08:37] LABS: Amphetamine Screen Urine Not Detected (Not Detect); Barbiturates, Urine Not Detected (Not Detect); Benzodiazepines Screen Urine Not Detected (Not Detect); Cannabinoid Screen Urine Not Detected (Not Detect); Cocaine Screen Urine Not Detected (Not Detect); Fentanyl, urine Not Detected (Not Detect); Opiate Screen Urine Not Detected (Not Detect); Phencyclidine Screen Urine Not Detected (Not Detect)
[2021-02-12 09:13] VITALS: BP 116/64; PULSE 101; RESP 16; O2SAT 98
== END 2021-02-12 11:19 | disposition home or self-care (01) ==
PROVIDERS: Emergency Medicine; Emergency Provider Emergency Medicine
DX: R41.82 Altered mental status, unspecified (principal); M54.5 Low back pain; R51.9 Headache, unspecified; Z20.822 Contact with and (suspected) exposure to COVID-19; Z79.899 Other long term (current) drug therapy
CPT/HCPCS: 36415; 70450; 71045; 80048; 80076; 80143; 80179; 80307; 81001; 82077; 82803; 83690; 83735; 84484; 85025; 87086; 87635; 93005; 99284

== ENCOUNTER 2021-06-08 15:39 | Observation (INO) | payer MEDICARE, SELFPAY ==
--- NOTE | ~2021-06-08 | XR_ITS ---
EXAMINATION: XR CHEST CLINICAL INFORMATION: Shortness of breath COMPARISON: 02/12/2021 TECHNIQUE: Frontal view of the chest was obtained. FINDINGS: Subtle linear opacities are evident at the left lung base. Lungs otherwise clear. No pneumothorax or pleural effusion. Cardiac meniscal contours are normal. Calcific atherosclerosis is present in the thoracic aorta. There is mild osteoarthritis in the acromioclavicular and glenohumeral joints. XR/XR chest 1V IMPRESSION: Subtle linear opacities in the left lung base which likely correspond atelectasis. Early viral pneumonia is possible though felt to be less likely.
--- NOTE | ~2021-06-08 | CT_ITS ---
EXAMINATION: CT ABDOMEN AND PELVIS WITH CONTRAST CLINICAL INFORMATION: Fistula near rectum COMPARISON: 04/06/2019 TECHNIQUE: Multidetector volumetric images were obtained from the superior aspect of the liver through the pubic symphysis following administration 85 mL of Omnipaque 350 intravenous contrast. Sagittal and coronal reformatted images were obtained on the technologist's workstation. Oral contrast: No This CT examination was performed using dose optimization techniques as appropriate, variously including the following: *Automated exposure control *Adjustment of mA and/or kV according to patient size (this includes techniques or standardized protocols for targeted exams where dose is matched to indication/reason for exam; i.e. extremities or head) *Use of iterative reconstruction technique DLP: 717 mGy-cm FINDINGS: LUNG BASES: There is new curvilinear opacity in the left lower lobe, most likely atelectasis. LIVER, GALLBLADDER, AND BILIARY TREE: The liver is normal in size, shape, and attenuation. No focal hepatic lesion or biliary ductal dilatation is present. The gallbladder is unremarkable with no evidence of radiopaque gallstones, gallbladder wall thickening, or obvious pericholecystic inflammatory changes. PANCREAS: Unremarkable. SPLEEN: Unremarkable. ADRENAL GLANDS: Unremarkable. KIDNEYS AND URETERS: The kidneys are normal in size, shape, and attenuation. No hydronephrosis, hydroureter, or calculi seen. No perinephric stranding. BLADDER: Urinary bladder is markedly distended measuring 16 cm craniocaudal. GASTROINTESTINAL TRACT: The stomach is distended with ingested material. Small bowel is nondilated. Normal appendix. Tortuous colon. There is wall thickening of the distal transverse colon, extending distally to involve the left colon, sigmoid colon, and upper rectum with surrounding pericolonic fluid and fat stranding most notable adjacent the left colon, consistent with colitis. The pelvic floor is prolapse/low lying. It does not appear that the entirety of the anal canal was imaged. There is some chronic stranding in the left ischiorectal fossa that was present previously. ABDOMINAL WALL: There calcifications in the fat of the anterior pelvis, likely sequelae of prior injections. Small fat-containing umbilical hernia.. LYMPH NODES: Normal. VASCULAR: Normal caliber aorta with mild calcified and noncalcified atherosclerotic changes. PELVIC VISCERA: The uterus and adnexa are unremarkable. OSSEOUS STRUCTURES: Unremarkable. CT/CT abdomen pelvis w con IMPRESSION: There is wall thickening of the distal colon from the splenic flexure to the upper rectum with mild pericolonic fluid and fat stranding particularly adjacent the distal left colon. The appearance suggests a long segment colitis, most likely infectious or inflammatory. The involvement appears to be within the inferior mesenteric artery territory but the inferior mesenteric artery is seen to enhance proximally. There is descent/prolapse of the pelvic floor. Chronic stranding seen in the left ischiorectal fossa. No new findings to suggest perirectal fistula although the imaging [id number] is incomplete. Markedly distended urinary bladder. If the patient cannot void spontaneously, she may benefit from placement of a Marshall catheter. Likely atelectasis at the left lung base.
--- NOTE | 2021-06-08 15:42 | ECG_ITS ---
Test Reason : WEAKNESS Blood Pressure : / mmHG Vent. Rate : 097 BPM Atrial Rate : 097 BPM P-R Int : 130 ms QRS Dur : 086 ms QT Int : 340 ms P-R-T Axes : 086 063 078 degrees QTc Int : 431 ms Normal sinus rhythm Normal ECG When compared with ECG of 12-FEB-2021 06:23, No significant change was found Referred By: Crista Urbina Electronically Signed By:SUBHASH DENNIS MD
--- NOTE | 2021-06-08 15:43 | ED.WEAKNESS ---
HPI - Weakness General Chief complaint: General Medical Stated complaint: FTT? Time Seen by Provider: 06/08/21 15:42 Source: patient Mode of arrival: ambulatory Limitations: no limitations History of Present Illness HPI Narrative: This is a 60-year-old female presenting to the emergency department via ambulance with a complaint of failure to thrive. She called EMS for a lift assist. Patient was sitting in her recliner unable to get up for two days due to weakness. When EMS arrived she was covered in feces. EMS tells me this is a common occurrence, they tell me she calls daily multiple times per day. She lives at home with her who does not help her and does not care for her. Patient has no complaints at this time. She denies chest pain, shortness of breath, fevers, chills, nausea, vomiting, abdominal pain, headache, neck pain. MD Complaint: generalized weakness Duration: constant Location: generalized Migration: none Severity: severe Severity scale (1-10): 10 Relieving factors: none Exacerbating factors: none Associated symptoms: denies other symptoms Related Data Home Medications Medication Instructions Recorded Confirmed Ambien 10 mg BEDTIME 04/10/20 04/10/20 Soma TID PRN 04/10/20 aspirin 325 mg tablet 325 mg PO DAILY 04/10/20 04/10/20 atorvastatin 80 mg tablet (Lipitor) DAILY 04/10/20 baclofen 20 mg 04/10/20 dimethyl fumarate 240 mg 240 mg PO BID 04/10/20 04/10/20 capsule,delayed release mirtazapine 15 mg tablet 15 mg PO BEDTIME 04/10/20 04/10/20 tramadol 50 mg tablet mg 04/10/20 baclofen 20 mg tablet 20 mg PO DAILY 04/17/20 dimethyl fumarate 240 mg 240 mg PO BID 04/17/20 capsule,delayed release (Tecfidera) gabapentin 300 mg capsule 300 mg PO DAILY 04/17/20 Previous Rx's Medication Instructions Recorded leg brace (Knee Support Brace) #1 ea 04/24/20 leg brace (Knee Support Brace) #1 ea 04/25/20 oxycodone 5 mg tablet 5 mg PO Q12H PRN 7 Days #14 tab 06/11/20 Allergies Allergy/AdvReac Type Severity Reaction Status Date / Time No Known Allergies Allergy Verified 04/18/20 09:07 Review of Systems Review of Systems: Constitutional : No Weight loss, No Fever, No Chills, + Fatigue, + Malaise ENT/Mouth : No sore throat, No Rhinorrhea Eyes: No Eye Pain, No Swelling, No Redness Cardiovascular : No Chest Pain, No SOB, No Dyspnea on Exertion, No Orthopnea, No Edema, No Palpitations Respiratory : No Cough, No Sputum, No Wheezing Gastrointestinal : No Nausea, No Vomiting, No Diarrhea, No Constipation, No abdominal Pain, No Hematochezia, No Melena Genitourinary : No Dysuria, No Urinary Frequency, No Hematuria, Musculoskeletal : No joint pain, No Myalgias, No Joint Swelling Skin : + Skin Lesions, + rash Neuro : No Weakness, No Numbness, No Dizziness, No Headache Psych : No Anxiety/Panic, No Depression All other systems reviewed and are negative Yes all other systems are reviewed and are negative [facility], [facility] Past Medical History Attestation statement: The following information was validated with the patient. Source: old records reviewed and nursing notes reviewed Medical History Femoral distal fracture Fracture of left tibial plateau Frequent falls Hemiparesis of left nondominant side Hyperlipidemia Left hemiparesis Left humeral fracture Multiple sclerosis Polysubstance abuse Seizure disorder Social History Social History Alcohol intake: unknown Advance Directives: No Advance Directives Information Provided: No Physical Exam Vital Signs: Vital Signs: Last Vital Signs Temp 97.4 F 06/08/21 18:44 Pulse 82 06/08/21 18:44 Resp 16 06/08/21 18:44 BP 130/76 06/08/21 18:44 Pulse Ox 96 06/08/21 18:44 BMI result Body Mass Index 26.6 VSS Appearance: Alert.? Oriented X3.? No acute distress.?+ disheveled, poor hygiene, covered in feces Head: Normocephalic, atraumatic, no step-offs or deformities Eyes: Pupils equal, round and reactive to light.? ENT: Pharynx normal.? Neck: Normal inspection.? Neck supple.? CVS: Normal heart rate and rhythm.? Pulses normal.? Respiratory: No respiratory distress.? Breath sounds normal.? Abdomen: Soft and nontender.? Skin: Skin warm and dry.? Normal skin color.? Normal skin turgor.?+Rash (images below in b/l groin area, buttocks, and under bilateral breasts) Extremities: No lower extremity edema.? No calf ttp. 3/5 strength to right upper and lower extremities. 1/5 to left upper extremity due to old nonhealing fx on that side. Back: No midline tenderness, no C-spine tenderness, full range of motion, no CVA tenderness bilaterally Neuro: Oriented X 3.? No motor deficit.? No sensory deficit. Course Reevaluation(s) Reevaluation #1: Patient reports pain to her body aches, she is noted to have an open sore to the left buttocks. She is also noted to possible fistula near her rectum, with serous sanguinous discharge. Will obtain blood cultures, lactic, and sample of serousanginous fluid for culture. Zosyn will be given. Will obtain CT of pelvis w/ contrast. Sign out will be given to Sahra AVENDAÑO If remaining of workup negative (pending lactic, cultures, UA) patient will stay overnight for PT/CM. If + likely admission. Time: 20:33 MDM - Weakness MDM Narrative Medical decision making narrative: [id number] This is a 60-year-old female brought in by ambulance but a [place] fire department with complaints of failure to thrive. Patient called 911 for a lift assist, when 1st responders arrived on scene, patient was covered in feces. First responders timing that this is a common occurrence. She lives at home with her who does not help her. She has no complaints at this time. Unsure if at any Physical exam significant for discharge filled 60-year-old female, lungs clear, regular rate and rhythm, abdomen soft nontender nondistended. No focal neuro deficits. There is generalized weakness on exam, this appears to be patient's baseline. Plan at this time is to obtain basic labs, EKG, cardiac monitoring, UA, CK. Medical Records Attestation: I reviewed the patient's medical records. Lab Data Attestation: I reviewed the patient's lab results. Result diagrams: 06/08/21 17:11 06/08/21 17:11 Labs: Lab Results 06/08/21 06/08/21 06/08/21 Range/Units 17:04 17:11 17:11 WBC 12.4 H (4.8-10.8) X10*3/uL RBC 5.08 (4.20-5.50) X10*6/uL Hgb 15.3 (12.0-16.0) g/dl Hct 46.2 (37.0-47.0) % MCV 90.9 (80.0-98.0) fL MCH 30.1 (27.0-33.0) pg MCHC 33.1 (31.0-35.0) g/dl RDW 13.8 (11.0-16.0) % Plt Count 311 (160-400) X10*3/uL MPV 9.2 L (9.4-12.3) fL Immature Gran % (Auto) 0.3 (0.0-0.4) % Neut % (Auto) 85.6 H (45-73) % Lymph % (Auto) 6.6 L (20-40) % [place] % (Auto) 7.1 (2-11) % Eos % (Auto) 0.2 (0-4) % Baso % (Auto) 0.2 (0-2) % Lymph # (Auto) 0.8 L (1.2-4.9) X10*3/uL [place] # (Auto) 0.9 (0.1-1.2) X10*3/uL Eos # (Auto) 0.0 (0.0-0.4) X10*3/uL Baso # (Auto) 0.0 (0.0-0.2) X10*3/uL Abs Immat Gran (auto) 0.04 H (0.00-0.03) X10*3/uL Absolute Neuts (auto) 10.7 H (2.0-8.3) x10*3/uL Absolute Nucleated RBC 0.000 (0.0-0.012) X10*3/uL Nucleated RBC % (auto) 0.0 (0.0-0.2) /100WBC Sodium 140 (135-145) mmol/L Potassium 5.0 (3.3-5.1) mmol/L Chloride 105 (96-108) mmol/L Carbon Dioxide 30 H (22-29) mmol/L Anion Gap 10 L (12-20) BUN 15 (9-16) mg/dL Creatinine 0.83 (0.5-1.4) mg/dL Estim Creat Clear Calc 72.7 Estimated GFR > 60 POC Glucose 103 (60-115) mg/dL Random Glucose 104 (60-115) mg/dL Calcium 9.0 (8.4-10.2) mg/dL Magnesium 2.4 (1.6-2.6) mg/dL Total Bilirubin 0.5 (0.0-1.0) mg/dL AST 13 (5-31) U/L ALT 12 (0-31) U/L Alkaline Phosphatase 75 (39-117) U/L Total Creatine Kinase 33 (26-140) U/L Troponin I High Sens (<3.5-17.0) ng/L Total Protein 6.5 (6.5-8.0) g/dL Albumin 3.7 (3.5-5.0) g/dL COVID-19 (ALESSANDRA) (Negative) COVID-19 Clin Com 06/08/21 06/08/21 Range/Units 17:11 17:11 WBC (4.8-10.8) X10*3/uL RBC (4.20-5.50) X10*6/uL Hgb (12.0-16.0) g/dl Hct (37.0-47.0) % MCV (80.0-98.0) fL MCH (27.0-33.0) pg MCHC (31.0-35.0) g/dl RDW (11.0-16.0) % Plt Count (160-400) X10*3/uL MPV (9.4-12.3) fL Immature Gran % (Auto) (0.0-0.4) % Neut % (Auto) (45-73) % Lymph % (Auto) (20-40) % [place] % (Auto) (2-11) % Eos % (Auto) (0-4) % Baso % (Auto) (0-2) % Lymph # (Auto) (1.2-4.9) X10*3/uL [place] # (Auto) (0.1-1.2) X10*3/uL Eos # (Auto) (0.0-0.4) X10*3/uL Baso # (Auto) (0.0-0.2) X10*3/uL Abs Immat Gran (auto) (0.00-0.03) X10*3/uL Absolute Neuts (auto) (2.0-8.3) x10*3/uL Absolute Nucleated RBC (0.0-0.012) X10*3/uL Nucleated RBC % (auto) (0.0-0.2) /100WBC Sodium (135-145) mmol/L Potassium (3.3-5.1) mmol/L Chloride (96-108) mmol/L Carbon Dioxide (22-29) mmol/L Anion Gap (12-20) BUN (9-16) mg/dL Creatinine (0.5-1.4) mg/dL Estim Creat Clear Calc Estimated GFR POC Glucose (60-115) mg/dL Random Glucose (60-115) mg/dL Calcium (8.4-10.2) mg/dL Magnesium (1.6-2.6) mg/dL Total Bilirubin (0.0-1.0) mg/dL AST (5-31) U/L ALT (0-31) U/L Alkaline Phosphatase (39-117) U/L Total Creatine Kinase (26-140) U/L Troponin I High Sens < 3.5 (<3.5-17.0) ng/L Total Protein (6.5-8.0) g/dL Albumin (3.5-5.0) g/dL COVID-19 (ALESSANDRA) Negative (Negative) COVID-19 Clin Com See Note Critical Care Time Critical Care Time Critical Care Time: Yes Total Critical Care Time: 35 Attestation: I attest to this time spent taking care of the patient obtaining history, physical, reviewing labs, lactic acid, obtaining blood cultures, obtaining culture of wound, speaking to on-call social media marketer, reviewing previous records. Discharge Plan Discharge Clinical Impression: Physical deconditioning, Rash Patient Disposition: Home, Self-Care Prescriptions: No Action (DME) Knee Support Brace Misc See Rx Instructions .MEDSUPPLY Qty: 1 RF: 0 (DME) Knee Support Brace Misc See Rx Instructions .MEDSUPPLY Qty: 1 RF: 0 oxycodone 5 mg tablet 5 mg PO Q12H PRN (Reason: pain) 7 Days Qty: 14 RF: 0 Ambien 10 mg BEDTIME RF: 0 aspirin 325 mg Tablet 325 mg PO DAILY RF: 0 dimethyl fumarate 240 mg Capsule,Delayed Release(Dr/Ec) 240 mg PO BID RF: 0 Soma TID PRN (Reason: Pain) RF: 0 baclofen 20 mg RF: 0 atorvastatin [Lipitor] 80 mg Tablet DAILY RF: 0 tramadol 50 mg Tablet RF: 0 mirtazapine 15 mg Tablet 15 mg PO BEDTIME RF: 0
[2021-06-08 15:51] VITALS: BMI 26.6
[2021-06-08 17:01] VITALS: BP 126/71; PULSE 97; RESP 16; TEMP 37.1; O2SAT 94
[2021-06-08 17:07] LABS: Glucose, Whole Blood 103 mg/dL (60-115)
[2021-06-08 17:18] LABS: MANUAL DIFF FLAG NO
--- NOTE | 2021-06-08 17:19 | PC.NURSE ---
PATIENT CAME IS FULL OF DRIED FECES ALL OVER BODY ,PATIENT WAS GIVEN A BED BATH ,LINEN WAS CHANGE PATIENT WAS REPOSITION OFF HER BOTTOM.
[2021-06-08 17:20] LABS: Basophils Percent Auto 0.2 % (0-2); Eosinophils Percent Auto 0.2 % (0-4); Hematocrit 46.2 % (37.0-47.0); Hemoglobin 15.3 g/dl (12.0-16.0); Imm Gran Abs Auto 0.04 X10*3/uL (0.00-0.03); Imm Gran Pct Auto 0.3 % (0.0-0.4); Lymphocytes Absolute Auto 0.8 X10*3/uL (1.2-4.9); Lymphocytes Percent Auto 6.6 % (20-40); Mean Corpuscular HGB Conc 33.1 g/dl (31.0-35.0); Mean Corpuscular Hemoglobin 30.1 pg (27.0-33.0); Mean Corpuscular Volume 90.9 fL (80.0-98.0); Mean Platelet Volume 9.2 fL (9.4-12.3); Monocytes Absolute Auto 0.9 X10*3/uL (0.1-1.2); Monocytes Percent Auto 7.1 % (2-11); Neutrophils Absolute Auto 10.7 x10*3/uL (2.0-8.3); Neutrophils Percent Auto 85.6 % (45-73); Platelet Count 311 X10*3/uL (160-400); Red Blood Count 5.08 X10*6/uL (4.20-5.50); Red Cell Distribution Width 13.8 % (11.0-16.0); White Blood Count 12.4 X10*3/uL (4.8-10.8)
[2021-06-08] MEDS: 0.9 % Sodium Chloride 1,000 ML 999 ML IV (17:30)
[2021-06-08 17:39] LABS: Alanine Aminotransferase 12 U/L (0-31); Albumin Level 3.7 g/dL (3.5-5.0); Alkaline Phosphatase 75 U/L (39-117); Anion Gap 10 (12-20); Aspartate Amino Transferase 13 U/L (5-31); Bilirubin Total 0.5 mg/dL (0.0-1.0); Blood Urea Nitrogen 15 mg/dL (9-16); Carbon Dioxide 30 mmol/L (22-29); Chloride 105 mmol/L (96-108); Creatinine Clr Calc Pharmacy 72.7; Estimated Glomerular Filt Rate > 60; Glucose Random 104 mg/dL (60-115); Magnesium 2.4 mg/dL (1.6-2.6); Sodium 140 mmol/L (135-145); Total Protein 6.5 g/dL (6.5-8.0); Troponin-I High Sensitivity < 3.5 ng/L (<3.5-17.0)
[2021-06-08 17:47] LABS: COVID-19 Test Negative (Negative)
--- NOTE | 2021-06-08 17:52 | PC.NURSE ---
pt reports she had a bm last night and was not able to clean herself therefore she called the ambulance to take her to the ed for assistance. pt states she lives alone with her who is handicap and is not able to assist her. she also states she has a home health aid three days during the week. pt c/o of 8 coccyx pain and burning that she relates to her sitting in feces and urine for a long period of time. Pt noted to be covered in dried up feces on multiple areas of her body. pt cleaned and changed by ed techs. reddened and excoriated areas noted on bilateral groin region, left and right buttocks, under bilateral breast. Open macerated area noted on coccyx. red patchy areas noted on left flank. photos of affected areas taken with digital camera from ed pyxis with pt's consent. equipment to print photos unavailable. photos not printed. DONTA Coe aware.
[2021-06-08 18:44] VITALS: BP 130/76; PULSE 82; RESP 16; TEMP 36.3; O2SAT 96
--- NOTE | 2021-06-08 20:43 | PC.NURSE ---
ATTEMPTING TO GET URINE SAMPLE FROM PATIENT, PLACED ON BEDPAN, PATIENT STATING UNABLE TO GO. PATIENT CLEANED UP AND PURWICK IN PLACE. PROVIDER AT BEDSIDE TO EVALUATE REDDEDNED AREA TO BUTTOCK, SMALL OPEN ARE ON THE LEFT SIDE, TISSUE IS PINK WITH DEFINED EDGES. PROVIDER TAKING PICTURES WITH PATIENTS CONSENT FOR HER CHART. SEE PROVIDER NOTED.
[2021-06-08 21:10] VITALS: BP 127/71; PULSE 93; RESP 18; TEMP 37.1; O2SAT 96
[2021-06-08] MEDS: Piperacillin Sodium/Tazobactam 3.375 GM in 0.9 % Sodium Chloride 50 ML IV (21:47)
--- NOTE | 2021-06-08 21:57 | PC.NURSE ---
MULTIPLE ATTEMPTS TO OBTAIN LABS BY PCT, PHLEBOTOMY CALLED, CONTNIUED ISSUES OBTAINING BLOOD WORK AND CULTURES. ANTIBIOTICS DELAYED DUE TO DIFFICULTY GETTING LABS. PROVIDER IS AWARE. ANTIBOTICS HUNG ASS SOON LABS WERE OBTAINED. PATIENT REPOSITIONED IN BED.
[2021-06-08 21:58] LABS: Lactic Acid 0.7 mmol/L (0.5-2.0)
[2021-06-08] MEDS: iohexoL 350 MG/ML 100 ML INFUS..BTL 85 ML IV (22:29)
--- NOTE | 2021-06-09 00:05 | P.HPHOSP_ITS ---
History of Present Illness Date of Service: 06/09/21 Chief Complaint: diarrhea 60F with pmh of multiple sclerosis complicated by left hemiparesis (wheelchair bound, able to pivot), presented with 1 day diarrhea. patient attributed diarrhea to gibralt[place] food eaten day before. denies abdominal pain, fever, chills, sick contacts. patient is normally continent but due to diarrhea was unable to make it to toilet on time, EMS found patient in her feces. in ED, CT showed left sided colitis and full bladder. Review of Systems Review of Systems: Constitutional: Denies fever, denies Chills Eyes: denies blurry vision ENT: denies sore throat CVS: denies chest pain Respiratory: Denies dyspnea GI: no abdominal pain : denies dysuria MSK: denies neck pain Skin: denies rash Neuro: denies specific motor weakness Psych: denies suicidal ideation Endocrine: denies heat/cold intolerance Hematologic: denies easy bleeding Allergy: denies hives [facility] Medical History Femoral distal fracture Fracture of left tibial plateau Frequent falls Hemiparesis of left nondominant side Hyperlipidemia Left hemiparesis Left humeral fracture Multiple sclerosis NSTEMI (non-ST elevated myocardial infarction) Polysubstance abuse Seizure disorder Family History Other Adopted Social History (Updated 06/09/21 @ 00:09 by Jason Snyder MD) Alcohol intake: unknown Patient Tobacco Use Status: Former Tobacco user Substance Use Type: Opiates Advance Directives: No Advance Directives Information Provided: No Meds Allergies Allergy/AdvReac Type Severity Reaction Status Date / Time No Known Allergies Allergy Verified 04/18/20 09:07 Home Medications Medication Instructions Recorded Confirmed Last Taken Type Ambien PO 06/08/21 Unknown History Soma PO 06/08/21 Unknown History baclofen 2 PO 06/08/21 Unknown History Physical Exam Vital Signs and Narrative: Vital Signs: Last Vital Signs Temp 98.7 F 06/08/21 21:10 Pulse 93 06/08/21 21:10 Resp 18 06/08/21 21:10 BP 127/71 06/08/21 21:10 Pulse Ox 96 06/08/21 21:10 BMI result Body Mass Index 26.6 General: no acute distress HEENT: atraumatic Neck: normal to visual inspection CVS: S1, S2, RRR Resp: CTA bilateral Chest: non tender GI: soft, non tender, non distended : no CVA tenderness Skin: pressure wounds as pictured in ED note Extremities: no edema Neuro: Oriented X3, left hemiparesis Psych: cooperative Results Labs CBC and Chem 7: 06/08/21 17:11 06/08/21 17:11 Labs: Laboratory Results - last 24 hr 06/08/21 06/08/21 06/08/21 17:04 17:11 17:11 MCV 90.9 MCH 30.1 MCHC 33.1 RDW 13.8 Plt Count 311 MPV 9.2 L Immature Gran % (Auto) 0.3 Neut % (Auto) 85.6 H Lymph % (Auto) 6.6 L Terry % (Auto) 7.1 Eos % (Auto) 0.2 Baso % (Auto) 0.2 Lymph # (Auto) 0.8 L Terry # (Auto) 0.9 Eos # (Auto) 0.0 Baso # (Auto) 0.0 Abs Immat Gran (auto) 0.04 H Absolute Neuts (auto) 10.7 H Absolute Nucleated RBC 0.000 Nucleated RBC % (auto) 0.0 Anion Gap 10 L Estim Creat Clear Calc 72.7 Estimated GFR > 60 POC Glucose 103 Random Glucose 104 Lactic Acid Calcium 9.0 Magnesium 2.4 Total Bilirubin 0.5 AST 13 ALT 12 Alkaline Phosphatase 75 Total Creatine Kinase 33 Troponin I High Sens Total Protein 6.5 Albumin 3.7 COVID-19 (ALESSANDRA) COVID-19 Clin Com 06/08/21 06/08/21 06/08/21 17:11 17:11 21:40 MCV MCH MCHC RDW Plt Count MPV Immature Gran % (Auto) Neut % (Auto) Lymph % (Auto) Terry % (Auto) Eos % (Auto) Baso % (Auto) Lymph # (Auto) Terry # (Auto) Eos # (Auto) Baso # (Auto) Abs Immat Gran (auto) Absolute Neuts (auto) Absolute Nucleated RBC Nucleated RBC % (auto) Anion Gap Estim Creat Clear Calc Estimated GFR POC Glucose Random Glucose Lactic Acid 0.7 Calcium Magnesium Total Bilirubin AST ALT Alkaline Phosphatase Total Creatine Kinase Troponin I High Sens < 3.5 Total Protein Albumin COVID-19 (ALESSANDRA) Negative COVID-19 Clin Com See Note Imaging Radiologist's Impressions: Impressions Chest X-Ray 06/08/21 17:43 IMPRESSION: Subtle linear opacities in the left lung base which likely correspond atelectasis. Early viral pneumonia is possible though felt to be less likely. Abdomen/Pelvis CT 06/08/21 22:33 IMPRESSION: There is wall thickening of the distal colon from the splenic flexure to the upper rectum with mild pericolonic fluid and fat stranding particularly adjacent the distal left colon. The appearance suggests a long segment colitis, most likely infectious or inflammatory. The involvement appears to be within the inferior mesenteric artery territory but the inferior mesenteric artery is seen to enhance proximally. There is descent/prolapse of the pelvic floor. Chronic stranding seen in the left ischiorectal fossa. No new findings to suggest perirectal fistula although the imaging [id number] is incomplete. Markedly distended urinary bladder. If the patient cannot void spontaneously, she may benefit from placement of a Marshall catheter. Likely atelectasis at the left lung base. Assessment and Plan (1) Colitis: Status: Acute 60F presented with diarrhea acute colitis monitor on observation (patient states she would like to go home tomorrow) levaquin check stool for cdif and wbc if negative cdif, can use imodium urinary retention normally does not need to cath straight cath for now MS with left hemiparesis not on meds anymore dvt prophlaxis - lovenox full code Quality Stroke Does the patient have a stroke diagnosis?: No VTE Prior VTE?: No VTE Risk Level:: Medical - moderate - high VTE Device Contraindication: Treatment Not Indicated VTE Drug Contraindication: N/A - Med Ordered
[2021-06-09] MEDS: Nystatin Powder 15 GM BOTTLE 1 APPL TOPICAL (00:27)
[2021-06-09 00:29] LABS: Appearance Urine CLEAR; Color Urine YELLOW; Glucose Urine UA NEG (NEG); Leukocyte Esterase Urine NEG (NEG); Nitrite Urine NEG (NEG); Specific Gravity - Urine 1.025 (1.005-1.025); Urine Blood NEG (NEG); Urine Ketones NEG (NEG); Urine Protein NEG (NEG-TRACE)
[2021-06-09 06:00] VITALS: BP 137/68; PULSE 114; RESP 18; TEMP 37.2; O2SAT 91
[2021-06-09 07:09] LABS: Hematocrit 38.7 % (37.0-47.0); Hemoglobin 12.7 g/dl (12.0-16.0); Mean Corpuscular HGB Conc 32.8 g/dl (31.0-35.0); Mean Corpuscular Hemoglobin 29.6 pg (27.0-33.0); Mean Corpuscular Volume 90.2 fL (80.0-98.0); Mean Platelet Volume 9.3 fL (9.4-12.3); Platelet Count 239 X10*3/uL (160-400); Red Blood Count 4.29 X10*6/uL (4.20-5.50); Red Cell Distribution Width 14.1 % (11.0-16.0); White Blood Count 9.9 X10*3/uL (4.8-10.8)
[2021-06-09 07:27] LABS: Blood Urea Nitrogen 9 mg/dL (9-16); Creatinine Clr Calc Pharmacy 82.6; Estimated Glomerular Filt Rate > 60; Glucose Random 127 mg/dL (60-115); Magnesium 1.9 mg/dL (1.6-2.6)
[2021-06-09 07:41] LABS: Anion Gap 10 (12-20); Calcium 8.4 mg/dL (8.4-10.2); Carbon Dioxide 25 mmol/L (22-29); Chloride 110 mmol/L (96-108); Potassium 3.5 mmol/L (3.3-5.1); Sodium 141 mmol/L (135-145)
--- NOTE | 2021-06-09 08:24 | PHA.MEDREC ---
Addendum entered by Alicia Thomas RPh 06/09/21 14:01: Patient admitted to hospitalist and RN that she is on medications.Patient reports she take baclofen 20 mg TID and 40 mg at bedtime. Called who read the rx bottle that say 20 mg take 2 tablet at bedtime. also reports she takes amantadine 100 mg and tecfidera 240 mg BID. Try to called [facility] who ever there has been no response. Original Note: Pharmacy Consult ? Medication Reconciliation Pharmacy has completed the medication reconciliation. Patient reports no medication at home to me. Spoke with Luz Marina who state that patient reported that she takes ambien, baclofen at home but did not know the dose. I specifically ask patient if she takes anything for sleep she said no. I also asked what she take for pain she did not answer. She report APAP and ibuprofen for OTC medications. PDMP does have records for Ambien 10 mg and Soma 350 mg TID filled in may as well as diazepam 5 mg BID x 90 days. Alicia Thomas, PharmD
[2021-06-09] MEDS: Lactated Ringers 1,000 ML 80 ML IVCONT ×2 (08:57→20:53)
[2021-06-09] MEDS: levoFLOXacin/D5W 750 MG/150 ML PIGGYBACK 100 MG IV (08:58)
--- NOTE | 2021-06-09 13:16 | PC.NURSE ---
pt requesting to speak with case management, informed Ledy from CM to meet with her.
[2021-06-09 14:00] VITALS: BP 127/70; PULSE 102; RESP 20; O2SAT 100
--- NOTE | 2021-06-09 14:23 | MHC.CM.PN ---
CM MET WITH PT IN ED OVERFLOW BED 05 PT REPORTS SHE NEEDS TO GET HOME TO ASSIST HER SHE REPORTS HE HAS A NURSE AND A NEEDLE BOARD REPAIRER HOWEVER THEY ARE NOT ALWAYS THERE AND SHE HELPS HIM WITH ALL OF HIS OTHER NEEDS PT REPORTS SHE HAS A NEEDLE BOARD REPAIRER A COUPLE HOURS DAILY WELL SHE REPORTS SHE WOULD LIKE MORE NEEDLE BOARD REPAIRER HOURS AND A VNA IF POSSIBLE CM AGREED TO SEND REFERRAL PT HAS A HCP ON FILE AND REPORTS HER PCP IS PRICILA DUNCAN PT HAS BOTH A WALKER AND A W/C AT HOME CURRENT DC PLAN IS HOME WITH RESUMPTION OF SERVICES AND POSSIBLY NEW VNA REQUEST SENT TO [facility] FOR INCREASED SERVICES PER PT REQUEST REFERRAL ALSO SENT TO [facility] AT PT REQUEST PT REPORTS SHE WILL NEED AN AMBULANCE HOME
[2021-06-09 17:05] VITALS: BP 128/67; PULSE 86; RESP 20; O2SAT 97
[2021-06-09] MEDS: Baclofen 20 MG TABLET PO ×2 (20:54→20:55)
[2021-06-09] MEDS: diazePAM 5 MG TABLET 10 MG PO (20:55)
[2021-06-09] MEDS: Atorvastatin Calcium 20 MG TABLET PO (20:55)
[2021-06-09] MEDS: Acetaminophen 325 MG TABLET 650 MG PO (20:58)
[2021-06-09 22:11] VITALS: BP 89/45; PULSE 102; RESP 15; TEMP 36.6; O2SAT 93
[2021-06-09 22:27] VITALS: BP 106/60
[2021-06-10] VITALS (7 sets, daily range): BP systolic 124–135; BP diastolic 56–76; PULSE 89–100; RESP 16–18; TEMP 36.3–37.5; O2SAT 92–97; BMI 26.6
[2021-06-10] MEDS: 0.9 % Sodium Chloride Flush 3 ML SYRINGE IVFLUSH ×4 (00:25→20:59)
[2021-06-10] MEDS: Enoxaparin Sodium 40 MG/0.4 ML SYRINGE SUBCUT (00:25)
--- NOTE | 2021-06-10 04:49 | PC.NURSE ---
At approx mn patient stated she would like her Gabapentin which is not ordered. left side flaccid and needs repositioning. left leg elevated on pillow. Report given to Natan. Patient upset she is moving and stating she doesnt want to be admitted. Patient told she is already admitted. Patient asked for privacy to make phone call.
[2021-06-10 06:48] LABS: Anion Gap 11 (12-20); Blood Urea Nitrogen 3 mg/dL (9-16); Calcium 8.8 mg/dL (8.4-10.2); Carbon Dioxide 28 mmol/L (22-29); Chloride 109 mmol/L (96-108); Creatinine Clr Calc Pharmacy 95.7; Estimated Glomerular Filt Rate > 60; Glucose Random 114 mg/dL (60-115); Potassium 3.9 mmol/L (3.3-5.1); Sodium 144 mmol/L (135-145)
[2021-06-10 06:49] LABS: Hematocrit 38.1 % (37.0-47.0); Hemoglobin 12.6 g/dl (12.0-16.0); Mean Corpuscular HGB Conc 33.1 g/dl (31.0-35.0); Mean Corpuscular Hemoglobin 30.2 pg (27.0-33.0); Mean Corpuscular Volume 91.4 fL (80.0-98.0); Mean Platelet Volume 9.8 fL (9.4-12.3); Platelet Count 270 X10*3/uL (160-400); Red Blood Count 4.17 X10*6/uL (4.20-5.50); Red Cell Distribution Width 13.6 % (11.0-16.0); White Blood Count 6.3 X10*3/uL (4.8-10.8)
[2021-06-10] MEDS: levoFLOXacin/D5W 750 MG/150 ML PIGGYBACK 100 MG IV (09:09)
[2021-06-10] MEDS: Baclofen 20 MG TABLET PO ×5 (09:09→20:58)
--- NOTE | 2021-06-10 10:24 | P.PNIM_ITS ---
Subjective Subjective Date of Service: 06/10/21 Interval History: the patient was seen and evaluated this morning Laying in bed, feels better overall but still complaining of abdominal pain Had an episode of diarrhea overnight Denies any fever, chills or shortness of breath No reported other overnight events. Review of Systems Constitutional: Denies fever, denies Chills Eyes: denies blurry vision ENT: denies sore throat CVS: denies chest pain Respiratory: Denies dyspnea GI: Mild abdominal pain and diarrhea : denies dysuria MSK: denies neck pain Skin: denies rash Neuro: denies specific motor weakness Physical Exam Vital Signs: Vital Signs: Last Vital Signs Temp 97.6 F 06/10/21 07:50 Pulse 98 06/10/21 07:50 Resp 18 06/10/21 07:50 BP 128/76 06/10/21 07:50 Pulse Ox 95 06/10/21 07:50 BMI result Body Mass Index 26.6 Const: Other: Constitutional : Alert, oriented, not in distress Neck : Normal inspection, Supple Cardiovascular : RRR, S1 S2, no lower extremity edema Respiratory : Good bilateral air entry, no crackles, wheezes or rhonchi Gastrointestinal: soft, lax, Normal bowel sounds, mild left lower quadrant tenderness with deep palpation Skin : Warm, Dry Neurological : Alert & oriented x3, No focal deficit Objective Data Active Medications Acetaminophen (Acetaminophen 325 Mg Tablet) 650 mg PO Q6H PRN PRN Reason: Pain, Mild (Pain Scale 1-3) Last Admin: 06/09/21 20:58 Dose: 650 mg Documented by: ETTA Atorvastatin Calcium (Atorvastatin Calcium 20 Mg Tablet) 20 mg PO BEDTIME [facility] Last Admin: 06/09/21 20:55 Dose: 20 mg Documented by: ETTA Baclofen (Baclofen 20 Mg Tablet) 20 mg PO QID [facility] Last Admin: 06/10/21 09:09 Dose: 20 mg Documented by: SONIA Baclofen (Baclofen 20 Mg Tablet) 20 mg PO BEDTIME [facility] Last Admin: 06/09/21 20:55 Dose: 20 mg Documented by: ETTA Diazepam (Diazepam 5 Mg Tablet) 10 mg PO BEDTIME PRN PRN Reason: anxiety/sleep Last Admin: 06/09/21 20:55 Dose: 10 mg Documented by: ETTA Enoxaparin Sodium (Enoxaparin Sodium 40 Mg/0.4 Ml Syringe) 40 mg SUBCUT Q24H [facility] Last Admin: 06/10/21 00:25 Dose: 40 mg Documented by: RANDA Levofloxacin (Levaquin) 750 mg in 150 mls @ 100 mls/hr IV DAILY [facility] Last Admin: 06/10/21 09:09 Dose: 100 mls/hr Documented by: SONIA Lactated Ringer's (Lr) 1,000 mls @ 80 mls/hr IVCONT .[id number] [facility] Last Admin: 06/09/21 20:53 Dose: 80 mls/hr Documented by: ETTA Sodium Chloride (0.9 % Sodium Chloride Flush 3 Ml Syringe) 3 ml IVFLUSH QSHIFT [facility] Last Admin: 06/10/21 09:11 Dose: 3 ml Documented by: SONIA Zolpidem Tartrate (Zolpidem Tartrate 5 Mg Tablet) 5 mg PO BEDTIME PRN PRN Reason: Insomnia Labs CBC & Chem 7: 06/10/21 05:57 06/10/21 05:57 Labs: Laboratory Results - last 24 hr 06/10/21 06/10/21 05:57 05:57 MCV 91.4 MCH 30.2 MCHC 33.1 RDW 13.6 Plt Count 270 MPV 9.8 Absolute Nucleated RBC 0.000 Nucleated RBC % (auto) 0.0 Anion Gap 11 L Estim Creat Clear Calc 95.7 Estimated GFR > 60 Random Glucose 114 Calcium 8.8 Microbiology Microbiology Results: Microbiology 06/08/21 21:50 Gram Stain - Final Buttock Mid Routine Culture - Final 06/08/21 21:42 Blood Culture - Preliminary Blood - Venous No growth after 24 hours. 06/08/21 21:42 Blood Culture - Preliminary Blood - Venous No growth after 24 hours. Assessment and Plan (1) Colitis: Status: Acute (2) Urinary retention: Status: Acute Assessment and Plan: 60F presented with diarrhea acute colitis improving continue levaquin pending stool for cdif and wbc if negative cdif, can use imodium urinary retention Marshall catheter placed yesterday, to DC today bladder scan Q4 MS with left hemiparesis not on meds anymore dvt prophlaxis - lovenox full code Quality Stroke Does the patient have a stroke diagnosis?: No VTE Prior VTE?: No VTE Risk Level:: Medical - moderate - high VTE Device Contraindication: Treatment Not Indicated VTE Drug Contraindication: N/A - Med Ordered
[2021-06-10] MEDS: Acetaminophen 325 MG TABLET 650 MG PO (13:26)
[2021-06-10] MEDS: diazePAM 5 MG TABLET 10 MG PO (20:58)
[2021-06-10] MEDS: Atorvastatin Calcium 20 MG TABLET PO (20:58)
[2021-06-11] MEDS: Enoxaparin Sodium 40 MG/0.4 ML SYRINGE SUBCUT (00:02)
[2021-06-11] MEDS: Acetaminophen 325 MG TABLET 650 MG PO (00:07)
[2021-06-11 00:09] VITALS: BP 113/57; PULSE 82; RESP 18; TEMP 36.8; O2SAT 94
[2021-06-11 01:25] VITALS: RESP 18
[2021-06-11 04:00] VITALS: BP 149/77; PULSE 73; RESP 18; O2SAT 95
[2021-06-11 05:52] LABS: Hematocrit 36.9 % (37.0-47.0); Hemoglobin 12.2 g/dl (12.0-16.0); Mean Corpuscular HGB Conc 33.1 g/dl (31.0-35.0); Mean Corpuscular Hemoglobin 29.8 pg (27.0-33.0); Mean Corpuscular Volume 90.2 fL (80.0-98.0); Mean Platelet Volume 9.3 fL (9.4-12.3); Platelet Count 254 X10*3/uL (160-400); Red Blood Count 4.09 X10*6/uL (4.20-5.50); Red Cell Distribution Width 13.2 % (11.0-16.0); White Blood Count 4.3 X10*3/uL (4.8-10.8)
[2021-06-11 06:10] LABS: Anion Gap 9 (12-20); Blood Urea Nitrogen 5 mg/dL (9-16); Carbon Dioxide 31 mmol/L (22-29); Chloride 109 mmol/L (96-108); Creatinine Clr Calc Pharmacy 98.9; Estimated Glomerular Filt Rate > 60; Glucose Random 114 mg/dL (60-115); Potassium 3.4 mmol/L (3.3-5.1); Sodium 146 mmol/L (135-145)
[2021-06-11 07:58] VITALS: BP 169/79; PULSE 81; RESP 18; TEMP 36.6; O2SAT 93
[2021-06-11] MEDS: 0.9 % Sodium Chloride Flush 3 ML SYRINGE IVFLUSH (08:30)
[2021-06-11] MEDS: Baclofen 20 MG TABLET PO ×2 (08:30→13:24)
[2021-06-11] MEDS: levoFLOXacin/D5W 750 MG/150 ML PIGGYBACK 100 MG IV (08:30)
--- NOTE | 2021-06-11 11:14 | P.F2F_ITS ---
Service Date Service Date: 06/11/21 Encounter Date of encounter: 06/11/21 Reasons for Services Signs and symptoms assessed: MS, wheelchair bound Reason for senior care: medication management, medication treatment and teach disease management Homebound: Leaving the home is medically contraindicated at this time without the asist of a device and/or another person due th the listed conditions above and below. Reason homebound: unsteady gait / fall risk and bedbound/chairbound Certification: Based on the above findings, I certify that this patient is confined to the home and needs intermittent senior care care, physical therapy and/or speech therapy, or continues to need occupational therapy. The patient is under my care, and I have initiated the establishment of the plan of care. The patient will be followed by a physician who will periodically review the plan of care.
--- NOTE | 2021-06-11 11:15 | PM.DS ---
DS: Providers Provider Date of Service: 06/11/21 Date of admission: 06/09/21 00:03 Primary care physician: Unknown Physician DS: Diagnosis Discharge Diagnosis (1) Colitis: Status: Acute (2) Urinary retention: Status: Acute DS: Summary Hospital Course Hospital Course: Patient was admitted for acute colitis complicated by urinary retention. She was treated with Levaquin. Her diarrhea resolved. She required catheterization for urinary retention. But as symptoms of diarrhea resolved her retention resolved as well was able to urinate on her own. Patient is now feeling back to baseline and will be discharged on 3 more days of p.o. Levaquin. Time Spent with Patient Time attestation: Total time spent providing and/or coordinating discharge services: Discharge coordination time: Greater than 30 minutes Quality: Stroke Does the patient have a stroke diagnosis?: No Physical Exam Vital Signs: Vital Signs: Last Vital Signs Temp 97.9 F 06/11/21 07:58 Pulse 81 06/11/21 07:58 Resp 18 06/11/21 07:58 BP 169/79 H 06/11/21 07:58 Pulse Ox 93 06/11/21 07:58 BMI result Body Mass Index 26.6 General: AO X 3, no acute distress Resp: CTA bilateral, no accessory muscles used CVS: S1,S2,RRR GI: soft, non tender, non distended Neuro: motor grossly intact, alert, left hemiparesis Psych: appropriate affect, appropriate insight DS: Data Data Completed and Pending Labs on day of discharge: Laboratory Results - last 24 hr 06/11/21 06/11/21 05:33 05:33 WBC 4.3 L RBC 4.09 L Hgb 12.2 Hct 36.9 L MCV 90.2 MCH 29.8 MCHC 33.1 RDW 13.2 Plt Count 254 MPV 9.3 L Absolute Nucleated RBC 0.000 Nucleated RBC % (auto) 0.0 Sodium 146 H Potassium 3.4 Chloride 109 H Carbon Dioxide 31 H Anion Gap 9 L BUN 5 L D Creatinine 0.61 Estim Creat Clear Calc 98.9 Estimated GFR > 60 Random Glucose 114 Calcium 9.0 Preliminary micro results at discharge 06/08/21 21:42 Blood Culture - Preliminary Blood - Venous No growth after 48 hours. 06/08/21 21:42 Blood Culture - Preliminary Blood - Venous No growth after 48 hours. Discharge Plan Discharge Patient Disposition: Home Health Service Discharge Diagnosis: colitis Referrals: Physician,Unknown J [Primary Care Provider] - 1 Week Discharge Medications: New levofloxacin 500 mg tablet 500 mg PO DAILY Qty: 3 RF: 0 Continued acetaminophen 325 mg Tablet 650 mg PO Q6H PRN (Reason: Pain) RF: 0 ibuprofen 200 mg Tablet 400 mg PO Q6H PRN (Reason: Pain) RF: 0 zolpidem 10 mg Tablet 10 mg PO BEDTIME PRN (Reason: Insomnia) RF: 0 aspirin 81 mg Tablet,Chewable 81 mg PO DAILY RF: 0 diazepam 5 mg Tablet 10 mg PO BEDTIME PRN (Reason: anxiety/sleep) RF: 0 simvastatin 40 mg Tablet 40 mg PO BEDTIME RF: 0 baclofen 20 mg Tablet 20 mg PO QID RF: 0 baclofen 20 mg Tablet 20 mg PO BEDTIME RF: 0 Discharge Orders: Discharge Order (Routine); Ordered 06/11/21 Ordered By: Jason Snyder Diet: advance to usual diet Activity on Discharge: As tolerated Stand Alone Forms: Patient Portal Discharge page Care Plan Goals: Recover Health Concerns: Colitis Plan of Treatment: Levaquin for 3 more days Assessment: See above
--- NOTE | 2021-06-11 11:36 | MHC.CM.PN ---
Addendum entered by Pastora Chan 06/11/21 11:42: PATIENT IS ACTIVE WITH [facility] UNDER THEIR STATE HOME CARE PROGRAM HE REP IS IWONA GOMEZ @ [phone] X [phone] IWONA IS AWARE THAT PATIENT IS DC TODAY AND THAT [facility] IS OFFERING Original Note: PATIENT IS DC HOME WITH [facility] AND A REFERRAL TO [facility] FOR ADDITIONAL SERVICES INTAKE. PATIENT AND RN AWARE OF PLAN. SHE WILL REQUIRE [facility] HOME
--- NOTE | 2021-06-11 13:28 | PC.NURSE ---
Skin/Wound assessment completed. patient has a stage 2 pressure ulcer to left buttock with surrounding rash into kam area. Triad applied to stage 2 covered with foam dressing then Triad applied to all red rash areas. No other skin issues noted at this time.
== END 2021-06-11 15:43 | disposition home health service (06) ==
LOC: HO.ED 06-09 00:03 → HO.EDOVER 06-09 00:19 → HO.S3 06-10 04:15
PROVIDERS: Physician Assistant; Student in an Organized Health Care Education/Training Program; Admitting Provider Internal Medicine; Emergency Provider Emergency Medicine; PCP Internal Medicine; Visit Provider Internal Medicine
DX: K52.9 Noninfective gastroenteritis and colitis, unspecified (principal); R33.9 Retention of urine, unspecified; D72.829 Elevated white blood cell count, unspecified; R15.1 Fecal smearing; K60.4 Rectal fistula; R53.1 Weakness; G81.94 Hemiplegia, unspecified affecting left nondominant side; G35 Multiple sclerosis; R26.9 Unspecified abnormalities of gait and mobility; N81.89 Other female genital prolapse; N32.89 Other specified disorders of bladder; Z91.81 History of falling; Z20.822 Contact with and (suspected) exposure to COVID-19; Z88.6 Allergy status to analgesic agent; Z99.3 Dependence on wheelchair; Z79.891 Long term (current) use of opiate analgesic; Z79.899 Other long term (current) drug therapy
CPT/HCPCS: 36415; 51798; 71045; 74177; 80048; 80053; 81003; 82550; 82947; 83605; 83735; 84484; 85025; 85027; 87040; 87071; 87205; 87635; 93005; 96361; 96365; 96372; 96375; 97110; 97162; 99218; 99285; 99291; J1650; J1956; J2543; Q9967

== ENCOUNTER 2021-06-19 12:37 | Emergency (ER) | payer MEDICARE, OTHER, SELFPAY ==
--- NOTE | ~2021-06-19 | CT_ITS ---
EXAMINATION: CT BRAIN. CHEST X-RAY CLINICAL INFORMATION: Increased weakness left acute on chronic COMPARISON: CT brain 02/12/2021. Chest 06/08/2021 TECHNIQUE: 5 mm thin axial and reformatted 2 mm thin sagittal coronal images of brain were obtained. DLP [id number]. Chest one view. FINDINGS: Brain: There is no acute intra-axial, extra-axial bleed, masses or midline shift. Both lateral ventricles are symmetrical in size and configuration with mild enlargement. There is no acute infarct in evolution. There is no edema. Bone windows reveal no calvarial abnormality. There is no scalp soft tissue abnormality either. Bilateral paranasal sinuses and mastoid air cells are well-aerated. CHEST: The lungs are fairly well-expanded and clear of acute pneumonic process. There is platelike atelectasis in the lingula. The heart size and pulmonary vascularity is normal. No gross bony abnormality seen. Unremarkable chest exam.. CT/CT head/brain wo con IMPRESSION: No acute intracranial process seen. Mild cerebral volume loss. No acute cardiopulmonary process seen. There is mild improvement in the subtle linear opacity in the left lung base and the lingular segment compared to previous chest x-ray 06/26/2021
[2021-06-19 12:55] VITALS: BP 117/67; BP 136/78; PULSE 84; PULSE 88; RESP 15; TEMP 36.7; O2SAT 94; O2SAT 98; BMI 26.6
--- NOTE | 2021-06-19 13:17 | ECG_ITS ---
Test Reason : weakness Blood Pressure : / mmHG Vent. Rate : 091 BPM Atrial Rate : 091 BPM P-R Int : 134 ms QRS Dur : 070 ms QT Int : 354 ms P-R-T Axes : 061 040 068 degrees QTc Int : 435 ms Normal sinus rhythm Normal ECG When compared with ECG of 08-JUN-2021 16:38, No significant change was found Referred By: Maida Bowman Electronically Signed By:LATRICIA STONE
[2021-06-19 14:18] LABS: MANUAL DIFF FLAG NO
[2021-06-19 14:23] LABS: Basophils Percent Auto 0.5 % (0-2); Eosinophils Absolute Auto 0.1 X10*3/uL (0.0-0.4); Hematocrit 46.2 % (37.0-47.0); Hemoglobin 14.9 g/dl (12.0-16.0); Imm Gran Abs Auto 0.05 X10*3/uL (0.00-0.03); Imm Gran Pct Auto 0.8 % (0.0-0.4); Lymphocytes Absolute Auto 0.5 X10*3/uL (1.2-4.9); Mean Corpuscular HGB Conc 32.3 g/dl (31.0-35.0); Mean Corpuscular Hemoglobin 29.5 pg (27.0-33.0); Mean Corpuscular Volume 91.5 fL (80.0-98.0); Mean Platelet Volume 9.2 fL (9.4-12.3); Monocytes Absolute Auto 0.4 X10*3/uL (0.1-1.2); Monocytes Percent Auto 7.2 % (2-11); Neutrophils Absolute Auto 4.9 x10*3/uL (2.0-8.3); Neutrophils Percent Auto 81.5 % (45-73); Platelet Count 397 X10*3/uL (160-400); Red Blood Count 5.05 X10*6/uL (4.20-5.50); Red Cell Distribution Width 14.1 % (11.0-16.0)
[2021-06-19 14:31] LABS: Lactic Acid 1.1 mmol/L (0.5-2.0)
[2021-06-19 14:35] LABS: Alanine Aminotransferase 16 U/L (0-31); Albumin Level 4.2 g/dL (3.5-5.0); Alkaline Phosphatase 79 U/L (39-117); Anion Gap 13 (12-20); Aspartate Amino Transferase 12 U/L (5-31); Bilirubin Direct 0.2 mg/dL (0.0-0.5); Bilirubin Total 0.3 mg/dL (0.0-1.0); Blood Urea Nitrogen 8 mg/dL (9-16); Calcium 9.8 mg/dL (8.4-10.2); Carbon Dioxide 32 mmol/L (22-29); Chloride 102 mmol/L (96-108); Creatinine Clr Calc Pharmacy 75.4; Estimated Glomerular Filt Rate > 60; Glucose Random 109 mg/dL (60-115); Magnesium 2.2 mg/dL (1.6-2.6); Potassium 4.3 mmol/L (3.3-5.1); Sodium 143 mmol/L (135-145); Total Protein 7.4 g/dL (6.5-8.0)
[2021-06-19 14:39] LABS: COVID-19 Test Negative (Negative); IDNOW Serial# 9DD0AD1C
[2021-06-19 14:41] LABS: B Type Natriuretic Peptide < 10 pg/mL (<100); Troponin-I High Sensitivity < 3.5 ng/L (<3.5-17.0)
--- NOTE | 2021-06-19 15:05 | ED.GENADULT ---
HPI - General Adult General Chief complaint: Weakness <DONTA Maynard Last Filed: 06/19/21 18:47> Stated complaint: PRODUCTIVE COUGH, WEAK,LETHARGY,FULLY VACCINATED <DONTA Maynard Last Filed: 06/19/21 18:47> Time Seen by Provider: 06/19/21 13:03 <DONTA Maynard Last Filed: 06/19/21 18:47> Source: patient and EMS <DONTA Maynard Last Filed: 06/19/21 18:47> Mode of arrival: EMS <DONTA Maynard Last Filed: 06/19/21 18:47> History of Present Illness HPI narrative: 60-year-old female with a past medical history MS, left-sided hemiparesis secondary to MS, HLD, polysubstance abuse, seizure disorder, recently discharged from our facility for acute colitis complicated by urinary retention, BIBA for increased weakness x1 week, productive cough, mild SOB, and decreased p.o. intake. Denies fever, chills, CP, abdominal pain, nausea/vomiting, dysuria/hematuria <DONTA Maynard Last Filed: 06/19/21 18:47> Onset (ago): day(s) <DONTA Maynard Last Filed: 06/19/21 18:47> Related Data Home medications: Home Medications Medication Instructions Recorded Confirmed acetaminophen 325 mg tablet 650 mg PO Q6H PRN 06/09/21 06/09/21 aspirin 81 mg chewable tablet 81 mg PO DAILY 06/09/21 06/09/21 baclofen 20 mg tablet 20 mg PO BEDTIME 06/09/21 06/09/21 baclofen 20 mg tablet 20 mg PO QID 06/09/21 06/09/21 diazepam 5 mg tablet 10 mg PO BEDTIME PRN 06/09/21 06/09/21 ibuprofen 200 mg tablet 400 mg PO Q6H PRN 06/09/21 06/09/21 simvastatin 40 mg tablet 40 mg PO BEDTIME 06/09/21 06/09/21 zolpidem 10 mg tablet 10 mg PO BEDTIME PRN 06/09/21 06/09/21 Previous Rx's Medication Instructions Recorded levofloxacin 500 mg tablet 500 mg PO DAILY #3 tab 06/11/21 <DONTA Maynard Last Filed: 06/19/21 18:47> Allergies/adverse reactions: Allergies Allergy/AdvReac Type Severity Reaction Status Date / Time No Known Allergies Allergy Verified 04/18/20 09:07 <DONTA Maynard Last Filed: 06/19/21 18:47> Review of Systems Review of Systems: Constitutional: No Fever, No Chills, + Fatigue, No Malaise, +decreased PO intake ENT/Mouth: No Ear Pain, No Nasal Congestion, No sore throat, No Swallowing Difficulty Eyes: No Eye Pain, No Swelling, No Redness Cardiovascular: No Chest Pain, + SOB, No Edema, No Palpitations Respiratory: + Cough, + Sputum, No Wheezing, No Dyspnea Gastrointestinal: No Nausea, No Vomiting, No Diarrhea, No Constipation, No Abdominal pain Genitourinary: No Dysuria, No Hematuria Musculoskeletal: No joint pain, No Myalgias, No Joint Swelling Skin: No Skin Lesions, No rash Neuro: + Weakness, No Numbness, No Paresthesias, No Loss of Consciousness, No Dizziness, No Headache Psych: No Anxiety/Panic, No Depression, No SI/HI/AH/VH, + Social Issues <DONTA Myanard Last Filed: 06/19/21 18:47> Yes all other systems are reviewed and are negative <DONTA Maynard Last Filed: 06/19/21 18:47> [facility]LY [facility] Past Medical History Attestation statement: The following information was validated with the patient. <DONTA Maynard Last Filed: 06/19/21 18:47> Medical History: Medical History Femoral distal fracture Fracture of left tibial plateau Frequent falls Hemiparesis of left nondominant side Hyperlipidemia Left hemiparesis Left humeral fracture Multiple sclerosis NSTEMI (non-ST elevated myocardial infarction) Polysubstance abuse Seizure disorder <DONTA Maynard Last Filed: 06/19/21 18:47> Family History Family History: Family History Other Adopted <DONTA Maynard Last Filed: 06/19/21 18:47> Social History Social History: Social History Alcohol intake: never Patient Tobacco Use Status: Current everyday Tobacco user Smoked in Last 30 Days: Yes Use of substances other than those prescribed or required for medical reasons: No Substance Use Type: Opiates Advance Directives: Yes Advance Directives on File: Yes Advance Directives Date on File: 04/10/20 Patient : No Current occupational status: retired <DONTA Maynard - Last Filed: 06/19/21 18:47> Physical Exam Vital Signs: Vital Signs: Last Vital Signs Temp 98.1 F 06/19/21 19:26 Pulse 76 06/20/21 08:46 Resp 16 06/20/21 07:12 BP 103/60 06/20/21 08:46 Pulse Ox 95 06/20/21 08:46 BMI result Body Mass Index 26.6 <DONTA Maynard - Last Filed: 06/19/21 18:47> Vital Signs: Last Vital Signs Temp 98.1 F 06/19/21 19:26 Pulse 76 06/20/21 08:46 Resp 16 06/20/21 07:12 BP 103/60 06/20/21 08:46 Pulse Ox 95 06/20/21 08:46 BMI result Body Mass Index 26.6 <Fariba Morrow MD - Last Filed: 06/20/21 11:41> Const: Other: Poor hygiene, covered in feces/urine <DONTA Maynard - Last Filed: 06/19/21 18:47> General: cooperative and poor hygiene <DONTA Maynard - Last Filed: 06/19/21 18:47> Limitations: no limitations <DONTA Maynard - Last Filed: 06/19/21 18:47> HENMT: Other: Dry mucous membranes <DONTA Maynard - Last Filed: 06/19/21 18:47> Head: Yes normal to inspection and Yes atraumatic <DONTA Maynard - Last Filed: 06/19/21 18:47> Ears: hearing grossly normal bilaterally <DONTA Maynard - Last Filed: 06/19/21 18:47> General nose exam: Normal external nose present <DONTA Maynard - Last Filed: 06/19/21 18:47> Face and sinus: Yes normal facial exam <Maida Bowman PA - Last Filed: 06/19/21 18:47> Throat: Yes uvula midline <Maida Bowman PA - Last Filed: 06/19/21 18:47> Eyes: General: appearance normal, both eyes and all related structures <DONTA Maynard - Last Filed: 06/19/21 18:47> Pupils: Equal, round and reactive pupils present <Maida Bowman PA - Last Filed: 06/19/21 18:47> EOM: EOMs intact bilaterally <Maida Bowman PA - Last Filed: 06/19/21 18:47> Neck: Neck: Yes normal visual inspection and Yes no meningeal signs <DONTA Maynard - Last Filed: 06/19/21 18:47> Resp: Effort & Inspection: normal respiratory effort and no stridor <Maida Bowman PA - Last Filed: 06/19/21 18:47> Auscultation: diminished lung sounds bilateral in the lower lung bustamante <Maida Bowman PA - Last Filed: 06/19/21 18:47> Cardio: Rate: regular rate <Maida Bowman PA - Last Filed: 06/19/21 18:47> Heart sounds: S1 normal heart sound present and S2 normal heart sound present <Maida Bowman PA - Last Filed: 06/19/21 18:47> GI: Inspection: Yes normal to inspection <Maida Bowman PA - Last Filed: 06/19/21 18:47> Palpation (GI): Soft to palpation, nontender, no guarding and not rigid <Maida Bowman PA - Last Filed: 06/19/21 18:47> Skin: Other: Superficial sacral ulcer noted <Maida Bowman PA - Last Filed: 06/19/21 18:47> Rashes: no rashes <Maida Bowman PA - Last Filed: 06/19/21 18:47> Neuro: Other: Chronic left-sided hemiparesis <Maida Bowman PA - Last Filed: 06/19/21 18:47> General: no meningeal signs and CN's II-XI intact bilaterally <DONTA Maynard - Last Filed: 06/19/21 18:47> Cranial nerves: Yes Equal, round and reactive pupils present <DONTA Maynard - Last Filed: 06/19/21 18:47> Cognition (Neuro): normal cognition <DONTA Maynard - Last Filed: 06/19/21 18:47> Extrem: General: Yes normal to inspection and Yes no pedal edema <DONTA Maynard - Last Filed: 06/19/21 18:47> Course Course Course Narrative: -1505--no leukocytosis. H&H stable. Labs otherwise unremarkable, troponin negative -COVID-[address] head/brain wo con / XR chest 1V IMPRESSION: No acute intracranial process seen. ? Mild cerebral volume loss. ? No acute cardiopulmonary process seen. There is mild improvement in the subtle linear opacity in the left lung base and the lingular segment compared to previous chest x-ray 06/26/2021? -1550--UA negative. Patient cleared for PT/case management eval as workup is benign. Physician observation initiated as patient needs more time to be evaluated by PT/CM -1600--ED care transferred to Dr. Mark pending PT/CM <DONTA Maynard - Last Filed: 06/19/21 18:47> Reevaluation(s) Reevaluation #1: Patient was evaluated by Physical therapy and Case Management. [facility] <Fariba Morrow MD - Last Filed: 06/20/21 11:41> Medical Decision Making [facility] Narrative Medical decision making narrative: 60-year-old female with a past medical history MS, left-sided hemiparesis secondary to MS, HLD, polysubstance abuse, seizure disorder, recently discharged from our facility for acute colitis complicated by urinary retention, BIBA for increased weakness x1 week, productive cough, mild SOB, and decreased p.o. intake. On exam VSS, NAD, chronic hemiparesis noted, no focal neuro deficits, patient with poor hygiene, covered in feces/urine, decreased breath sounds bibasilar, abdomen soft/nontender. Concern for Metabolic/infectious etiology vs viral syndrome/COVID-19. Low concern for severe sepsis at this time. Low concern for CVA Plan: EKG, labs, UA, CXR, head CT, lactic/blood cultures, PT/case management <DONTA Maynard - Last Filed: 06/19/21 18:47> Medical Records Medical records reviewed: Yes I reviewed the patient's medical records. <DONTA Maynard - Last Filed: 06/19/21 18:47> Lab Data Lab results reviewed: Yes I reviewed the patient's lab results. <DONTA Maynard - Last Filed: 06/19/21 18:47> Result diagrams: : 06/19/21 14:05 06/19/21 14:05 <DONTA Maynard - Last Filed: 06/19/21 18:47> Labs: Lab Results 06/19/21 06/19/21 06/19/21 Range/Units 14:05 14:05 14:05 WBC 6.0 (4.8-10.8) X10*3/uL RBC 5.05 D (4.20-5.50) X10*6/uL Hgb 14.9 D (12.0-16.0) g/dl Hct 46.2 D (37.0-47.0) % MCV 91.5 (80.0-98.0) fL MCH 29.5 (27.0-33.0) pg MCHC 32.3 (31.0-35.0) g/dl RDW 14.1 (11.0-16.0) % Plt Count 397 D (160-400) X10*3/uL MPV 9.2 L (9.4-12.3) fL Immature Gran % (Auto) 0.8 H (0.0-0.4) % Neut % (Auto) 81.5 H (45-73) % Lymph % (Auto) 9.0 L (20-40) % [place] % (Auto) 7.2 (2-11) % Eos % (Auto) 1.0 (0-4) % Baso % (Auto) 0.5 (0-2) % Lymph # (Auto) 0.5 L (1.2-4.9) X10*3/uL [place] # (Auto) 0.4 (0.1-1.2) X10*3/uL Eos # (Auto) 0.1 (0.0-0.4) X10*3/uL Baso # (Auto) 0.0 (0.0-0.2) X10*3/uL Abs Immat Gran (auto) 0.05 H (0.00-0.03) X10*3/uL Absolute Neuts (auto) 4.9 (2.0-8.3) x10*3/uL Absolute Nucleated RBC 0.000 (0.0-0.012) X10*3/uL Nucleated RBC % (auto) 0.0 (0.0-0.2) /100WBC Sodium 143 (135-145) mmol/L Potassium 4.3 D (3.3-5.1) mmol/L Chloride 102 (96-108) mmol/L Carbon Dioxide 32 H (22-29) mmol/L Anion Gap 13 (12-20) BUN 8 L D (9-16) mg/dL Creatinine 0.80 (0.5-1.4) mg/dL Estim Creat Clear Calc 75.4 Estimated GFR > 60 Random Glucose 109 (60-115) mg/dL Lactic Acid (0.5-2.0) mmol/L Calcium 9.8 D (8.4-10.2) mg/dL Magnesium 2.2 (1.6-2.6) mg/dL Total Bilirubin 0.3 (0.0-1.0) mg/dL Direct Bilirubin 0.2 (0.0-0.5) mg/dL AST 12 (5-31) U/L ALT 16 (0-31) U/L Alkaline Phosphatase 79 (39-117) U/L Troponin I High Sens < 3.5 (<3.5-17.0) ng/L B-Natriuretic Peptide (<100) pg/mL Total Protein 7.4 (6.5-8.0) g/dL Albumin 4.2 (3.5-5.0) g/dL Urine Color Urine Appearance Urine pH (5.0-8.0) Ur Specific [place] (1.005-1.025) Urine Protein (NEG-TRACE) MG/DL Urine Glucose (UA) (NEG) MG/DL Urine Ketones (NEG) MG/DL Urine Blood (NEG) Urine Nitrite (NEG) Ur Leukocyte Esterase (NEG) Urine Opiates Screen (Not Detect) Urine Fentanyl Screen (Not Detect) Ur Barbiturates Screen (Not Detect) Ur Phencyclidine Scrn (Not Detect) Ur Amphetamines Screen (Not Detect) U Benzodiazepines Scrn (Not Detect) Urine Cocaine Screen (Not Detect) U Marijuana (THC) Screen (Not Detect) COVID-19 (ALESSANDRA) (Negative) COVID-19 Clin Com 06/19/21 06/19/21 06/19/21 Range/Units 14:05 14:05 14:05 WBC (4.8-10.8) X10*3/uL RBC (4.20-5.50) X10*6/uL Hgb (12.0-16.0) g/dl Hct (37.0-47.0) % MCV (80.0-98.0) fL MCH (27.0-33.0) pg MCHC (31.0-35.0) g/dl RDW (11.0-16.0) % Plt Count (160-400) X10*3/uL MPV (9.4-12.3) fL Immature Gran % (Auto) (0.0-0.4) % Neut % (Auto) (45-73) % Lymph % (Auto) (20-40) % [place] % (Auto) (2-11) % Eos % (Auto) (0-4) % Baso % (Auto) (0-2) % Lymph # (Auto) (1.2-4.9) X10*3/uL [place] # (Auto) (0.1-1.2) X10*3/uL Eos # (Auto) (0.0-0.4) X10*3/uL Baso # (Auto) (0.0-0.2) X10*3/uL Abs Immat Gran (auto) (0.00-0.03) X10*3/uL Absolute Neuts (auto) (2.0-8.3) x10*3/uL Absolute Nucleated RBC (0.0-0.012) X10*3/uL Nucleated RBC % (auto) (0.0-0.2) /100WBC Sodium (135-145) mmol/L Potassium (3.3-5.1) mmol/L Chloride (96-108) mmol/L Carbon Dioxide (22-29) mmol/L Anion Gap (12-20) BUN (9-16) mg/dL Creatinine (0.5-1.4) mg/dL Estim Creat Clear Calc Estimated GFR Random Glucose (60-115) mg/dL Lactic Acid 1.1 (0.5-2.0) mmol/L Calcium (8.4-10.2) mg/dL Magnesium (1.6-2.6) mg/dL Total Bilirubin (0.0-1.0) mg/dL Direct Bilirubin (0.0-0.5) mg/dL AST (5-31) U/L ALT (0-31) U/L Alkaline Phosphatase (39-117) U/L Troponin I High Sens (<3.5-17.0) ng/L B-Natriuretic Peptide < 10 (<100) pg/mL Total Protein (6.5-8.0) g/dL Albumin (3.5-5.0) g/dL Urine Color Urine Appearance Urine pH (5.0-8.0) Ur Specific [place] (1.005-1.025) Urine Protein (NEG-TRACE) MG/DL Urine Glucose (UA) (NEG) MG/DL Urine Ketones (NEG) MG/DL Urine Blood (NEG) Urine Nitrite (NEG) Ur Leukocyte Esterase (NEG) Urine Opiates Screen (Not Detect) Urine Fentanyl Screen (Not Detect) Ur Barbiturates Screen (Not Detect) Ur Phencyclidine Scrn (Not Detect) Ur Amphetamines Screen (Not Detect) U Benzodiazepines Scrn (Not Detect) Urine Cocaine Screen (Not Detect) U Marijuana (THC) Screen (Not Detect) COVID-19 (ALESSANDRA) Negative (Negative) COVID-19 Clin Com See Note 06/19/21 06/19/21 Range/Units 15:13 15:13 WBC (4.8-10.8) X10*3/uL RBC (4.20-5.50) X10*6/uL Hgb (12.0-16.0) g/dl Hct (37.0-47.0) % MCV (80.0-98.0) fL MCH (27.0-33.0) pg MCHC (31.0-35.0) g/dl RDW (11.0-16.0) % Plt Count (160-400) X10*3/uL MPV (9.4-12.3) fL Immature Gran % (Auto) (0.0-0.4) % Neut % (Auto) (45-73) % Lymph % (Auto) (20-40) % [place] % (Auto) (2-11) % Eos % (Auto) (0-4) % Baso % (Auto) (0-2) % Lymph # (Auto) (1.2-4.9) X10*3/uL [place] # (Auto) (0.1-1.2) X10*3/uL Eos # (Auto) (0.0-0.4) X10*3/uL Baso # (Auto) (0.0-0.2) X10*3/uL Abs Immat Gran (auto) (0.00-0.03) X10*3/uL Absolute Neuts (auto) (2.0-8.3) x10*3/uL Absolute Nucleated RBC (0.0-0.012) X10*3/uL Nucleated RBC % (auto) (0.0-0.2) /100WBC Sodium (135-145) mmol/L Potassium (3.3-5.1) mmol/L Chloride (96-108) mmol/L Carbon Dioxide (22-29) mmol/L Anion Gap (12-20) BUN (9-16) mg/dL Creatinine (0.5-1.4) mg/dL Estim Creat Clear Calc Estimated GFR Random Glucose (60-115) mg/dL Lactic Acid (0.5-2.0) mmol/L Calcium (8.4-10.2) mg/dL Magnesium (1.6-2.6) mg/dL Total Bilirubin (0.0-1.0) mg/dL Direct Bilirubin (0.0-0.5) mg/dL AST (5-31) U/L ALT (0-31) U/L Alkaline Phosphatase (39-117) U/L Troponin I High Sens (<3.5-17.0) ng/L B-Natriuretic Peptide (<100) pg/mL Total Protein (6.5-8.0) g/dL Albumin (3.5-5.0) g/dL Urine Color YELLOW Urine Appearance CLEAR Urine pH 6.0 (5.0-8.0) Ur Specific [place] <= 1.005 (1.005-1.025) Urine Protein NEG (NEG-TRACE) MG/DL Urine Glucose (UA) NEG (NEG) MG/DL Urine Ketones 5 (NEG) MG/DL Urine Blood NEG (NEG) Urine Nitrite NEG (NEG) Ur Leukocyte Esterase NEG (NEG) Urine Opiates Screen Not Detected (Not Detect) Urine Fentanyl Screen POSITIVE H (Not Detect) Ur Barbiturates Screen Not Detected (Not Detect) Ur Phencyclidine Scrn Not Detected (Not Detect) Ur Amphetamines Screen Not Detected (Not Detect) U Benzodiazepines Scrn POSITIVE H (Not Detect) Urine Cocaine Screen Not Detected (Not Detect) U Marijuana (THC) Screen Not Detected (Not Detect) COVID-19 (ALESSANDRA) (Negative) COVID-19 Clin Com <DONTA Maynard - Last Filed: 06/19/21 18:47> Lab Results 06/19/21 06/19/21 06/19/21 Range/Units 14:05 14:05 14:05 WBC 6.0 (4.8-10.8) X10*3/uL RBC 5.05 D (4.20-5.50) X10*6/uL Hgb 14.9 D (12.0-16.0) g/dl Hct 46.2 D (37.0-47.0) % MCV 91.5 (80.0-98.0) fL MCH 29.5 (27.0-33.0) pg MCHC 32.3 (31.0-35.0) g/dl RDW 14.1 (11.0-16.0) % Plt Count 397 D (160-400) X10*3/uL MPV 9.2 L (9.4-12.3) fL Immature Gran % (Auto) 0.8 H (0.0-0.4) % Neut % (Auto) 81.5 H (45-73) % Lymph % (Auto) 9.0 L (20-40) % [place] % (Auto) 7.2 (2-11) % Eos % (Auto) 1.0 (0-4) % Baso % (Auto) 0.5 (0-2) % Lymph # (Auto) 0.5 L (1.2-4.9) X10*3/uL [place] # (Auto) 0.4 (0.1-1.2) X10*3/uL Eos # (Auto) 0.1 (0.0-0.4) X10*3/uL Baso # (Auto) 0.0 (0.0-0.2) X10*3/uL Abs Immat Gran (auto) 0.05 H (0.00-0.03) X10*3/uL Absolute Neuts (auto) 4.9 (2.0-8.3) x10*3/uL Absolute Nucleated RBC 0.000 (0.0-0.012) X10*3/uL Nucleated RBC % (auto) 0.0 (0.0-0.2) /100WBC Sodium 143 (135-145) mmol/L Potassium 4.3 D (3.3-5.1) mmol/L Chloride 102 (96-108) mmol/L Carbon Dioxide 32 H (22-29) mmol/L Anion Gap 13 (12-20) BUN 8 L D (9-16) mg/dL Creatinine 0.80 (0.5-1.4) mg/dL Estim Creat Clear Calc 75.4 Estimated GFR > 60 Random Glucose 109 (60-115) mg/dL Lactic Acid (0.5-2.0) mmol/L Calcium 9.8 D (8.4-10.2) mg/dL Magnesium 2.2 (1.6-2.6) mg/dL Total Bilirubin 0.3 (0.0-1.0) mg/dL Direct Bilirubin 0.2 (0.0-0.5) mg/dL AST 12 (5-31) U/L ALT 16 (0-31) U/L Alkaline Phosphatase 79 (39-117) U/L Troponin I High Sens < 3.5 (<3.5-17.0) ng/L B-Natriuretic Peptide (<100) pg/mL Total Protein 7.4 (6.5-8.0) g/dL Albumin 4.2 (3.5-5.0) g/dL Urine Color Urine Appearance Urine pH (5.0-8.0) Ur Specific [place] (1.005-1.025) Urine Protein (NEG-TRACE) MG/DL Urine Glucose (UA) (NEG) MG/DL Urine Ketones (NEG) MG/DL Urine Blood (NEG) Urine Nitrite (NEG) Ur Leukocyte Esterase (NEG) Urine Opiates Screen (Not Detect) Urine Fentanyl Screen (Not Detect) Ur Barbiturates Screen (Not Detect) Ur Phencyclidine Scrn (Not Detect) Ur Amphetamines Screen (Not Detect) U Benzodiazepines Scrn (Not Detect) Urine Cocaine Screen (Not Detect) U Marijuana (THC) Screen (Not Detect) COVID-19 (ALESSANDRA) (Negative) COVID-19 Clin Com 06/19/21 06/19/21 06/19/21 Range/Units 14:05 14:05 14:05 WBC (4.8-10.8) X10*3/uL RBC (4.20-5.50) X10*6/uL Hgb (12.0-16.0) g/dl Hct (37.0-47.0) % MCV (80.0-98.0) fL MCH (27.0-33.0) pg MCHC (31.0-35.0) g/dl RDW (11.0-16.0) % Plt Count (160-400) X10*3/uL MPV (9.4-12.3) fL Immature Gran % (Auto) (0.0-0.4) % Neut % (Auto) (45-73) % Lymph % (Auto) (20-40) % [place] % (Auto) (2-11) % Eos % (Auto) (0-4) % Baso % (Auto) (0-2) % Lymph # (Auto) (1.2-4.9) X10*3/uL [place] # (Auto) (0.1-1.2) X10*3/uL Eos # (Auto) (0.0-0.4) X10*3/uL Baso # (Auto) (0.0-0.2) X10*3/uL Abs Immat Gran (auto) (0.00-0.03) X10*3/uL Absolute Neuts (auto) (2.0-8.3) x10*3/uL Absolute Nucleated RBC (0.0-0.012) X10*3/uL Nucleated RBC % (auto) (0.0-0.2) /100WBC Sodium (135-145) mmol/L Potassium (3.3-5.1) mmol/L Chloride (96-108) mmol/L Carbon Dioxide (22-29) mmol/L Anion Gap (12-20) BUN (9-16) mg/dL Creatinine (0.5-1.4) mg/dL Estim Creat Clear Calc Estimated GFR Random Glucose (60-115) mg/dL Lactic Acid 1.1 (0.5-2.0) mmol/L Calcium (8.4-10.2) mg/dL Magnesium (1.6-2.6) mg/dL Total Bilirubin (0.0-1.0) mg/dL Direct Bilirubin (0.0-0.5) mg/dL AST (5-31) U/L ALT (0-31) U/L Alkaline Phosphatase (39-117) U/L Troponin I High Sens (<3.5-17.0) ng/L B-Natriuretic Peptide < 10 (<100) pg/mL Total Protein (6.5-8.0) g/dL Albumin (3.5-5.0) g/dL Urine Color Urine Appearance Urine pH (5.0-8.0) Ur Specific [place] (1.005-1.025) Urine Protein (NEG-TRACE) MG/DL Urine Glucose (UA) (NEG) MG/DL Urine Ketones (NEG) MG/DL Urine Blood (NEG) Urine Nitrite (NEG) Ur Leukocyte Esterase (NEG) Urine Opiates Screen (Not Detect) Urine Fentanyl Screen (Not Detect) Ur Barbiturates Screen (Not Detect) Ur Phencyclidine Scrn (Not Detect) Ur Amphetamines Screen (Not Detect) U Benzodiazepines Scrn (Not Detect) Urine Cocaine Screen (Not Detect) U Marijuana (THC) Screen (Not Detect) COVID-19 (ALESSANDRA) Negative (Negative) COVID-19 Clin Com See Note 06/19/21 06/19/21 Range/Units 15:13 15:13 WBC (4.8-10.8) X10*3/uL RBC (4.20-5.50) X10*6/uL Hgb (12.0-16.0) g/dl Hct (37.0-47.0) % MCV (80.0-98.0) fL MCH (27.0-33.0) pg MCHC (31.0-35.0) g/dl RDW (11.0-16.0) % Plt Count (160-400) X10*3/uL MPV (9.4-12.3) fL Immature Gran % (Auto) (0.0-0.4) % Neut % (Auto) (45-73) % Lymph % (Auto) (20-40) % [place] % (Auto) (2-11) % Eos % (Auto) (0-4) % Baso % (Auto) (0-2) % Lymph # (Auto) (1.2-4.9) X10*3/uL [place] # (Auto) (0.1-1.2) X10*3/uL Eos # (Auto) (0.0-0.4) X10*3/uL Baso # (Auto) (0.0-0.2) X10*3/uL Abs Immat Gran (auto) (0.00-0.03) X10*3/uL Absolute Neuts (auto) (2.0-8.3) x10*3/uL Absolute Nucleated RBC (0.0-0.012) X10*3/uL Nucleated RBC % (auto) (0.0-0.2) /100WBC Sodium (135-145) mmol/L Potassium (3.3-5.1) mmol/L Chloride (96-108) mmol/L Carbon Dioxide (22-29) mmol/L Anion Gap (12-20) BUN (9-16) mg/dL Creatinine (0.5-1.4) mg/dL Estim Creat Clear Calc Estimated GFR Random Glucose (60-115) mg/dL Lactic Acid (0.5-2.0) mmol/L Calcium (8.4-10.2) mg/dL Magnesium (1.6-2.6) mg/dL Total Bilirubin (0.0-1.0) mg/dL Direct Bilirubin (0.0-0.5) mg/dL AST (5-31) U/L ALT (0-31) U/L Alkaline Phosphatase (39-117) U/L Troponin I High Sens (<3.5-17.0) ng/L B-Natriuretic Peptide (<100) pg/mL Total Protein (6.5-8.0) g/dL Albumin (3.5-5.0) g/dL Urine Color YELLOW Urine Appearance CLEAR Urine pH 6.0 (5.0-8.0) Ur Specific [place] <= 1.005 (1.005-1.025) Urine Protein NEG (NEG-TRACE) MG/DL Urine Glucose (UA) NEG (NEG) MG/DL Urine Ketones 5 (NEG) MG/DL Urine Blood NEG (NEG) Urine Nitrite NEG (NEG) Ur Leukocyte Esterase NEG (NEG) Urine Opiates Screen Not Detected (Not Detect) Urine Fentanyl Screen POSITIVE H (Not Detect) Ur Barbiturates Screen Not Detected (Not Detect) Ur Phencyclidine Scrn Not Detected (Not Detect) Ur Amphetamines Screen Not Detected (Not Detect) U Benzodiazepines Scrn POSITIVE H (Not Detect) Urine Cocaine Screen Not Detected (Not Detect) U Marijuana (THC) Screen Not Detected (Not Detect) COVID-19 (ALESSANDRA) (Negative) COVID-19 Clin Com <Fariba Morrow MD - Last Filed: 06/20/21 11:41> Discharge Plan Discharge Clinical Impression: Weakness, Cough <DONTA Maynard - Last Filed: 06/19/21 18:47> Patient Disposition: Home, Self-Care <DONTA Maynard - Last Filed: 06/19/21 18:47> Instructions: Weakness (ED) <DONTA Maynard - Last Filed: 06/19/21 18:47> Additional Instructions: Please follow-up with your primary care physician tomorrow. If you have any worsening or new symptoms, please return to the emergency room or call 911 <DONTA Maynard - Last Filed: 06/19/21 18:47> Prescriptions: No Action acetaminophen 325 mg Tablet 650 mg PO Q6H PRN (Reason: Pain) RF: 0 ibuprofen 200 mg Tablet 400 mg PO Q6H PRN (Reason: Pain) RF: 0 zolpidem 10 mg Tablet 10 mg PO BEDTIME PRN (Reason: Insomnia) RF: 0 aspirin 81 mg Tablet,Chewable 81 mg PO DAILY RF: 0 diazepam 5 mg Tablet 10 mg PO BEDTIME PRN (Reason: anxiety/sleep) RF: 0 simvastatin 40 mg Tablet 40 mg PO BEDTIME RF: 0 baclofen 20 mg Tablet 20 mg PO QID RF: 0 baclofen 20 mg Tablet 20 mg PO BEDTIME RF: 0 levofloxacin 500 mg tablet 500 mg PO DAILY Qty: 3 RF: 0 <DONTA Maynard - Last Filed: 06/19/21 18:47> Referrals: [facility] [Outside] - 2 days <DONTA Maynard - Last Filed: 06/19/21 18:47> Interventions: Admission Worksheet (ED) Last Done: 06/20/21 00:24 <DONTA Maynard - Last Filed: 06/19/21 18:47>
[2021-06-19 15:07] VITALS: BP 112/69; PULSE 84; RESP 12; TEMP 36.5; O2SAT 96
[2021-06-19 15:35] LABS: Appearance Urine CLEAR; Color Urine YELLOW; Glucose Urine UA NEG (NEG); Leukocyte Esterase Urine NEG (NEG); Nitrite Urine NEG (NEG); Specific Gravity - Urine <= 1.005 (1.005-1.025); Urine Blood NEG (NEG); Urine Ketones 5 MG/DL (NEG); Urine Protein NEG (NEG-TRACE)
[2021-06-19] MEDS: 0.9 % Sodium Chloride 1,000 ML 999 ML IV (15:38)
--- NOTE | 2021-06-19 18:03 | PC.NURSE ---
Pt from home with increased weakness and lethargy x 1 week, productive cough x 2-3 days. 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 small open area noted to left buttock, reddness and excoriation noted beneath bilateral breasts, left worse than right. 20g inserted to right ac.
[2021-06-19 19:26] VITALS: BP 123/66; PULSE 85; RESP 18; TEMP 36.7; O2SAT 97
[2021-06-19 21:38] LABS: Amphetamine Screen Urine Not Detected (Not Detect); Barbiturates, Urine Not Detected (Not Detect); Benzodiazepines Screen Urine POSITIVE (Not Detect); Cannabinoid Screen Urine Not Detected (Not Detect); Cocaine Screen Urine Not Detected (Not Detect); Fentanyl, urine POSITIVE (Not Detect); Opiate Screen Urine Not Detected (Not Detect); Phencyclidine Screen Urine Not Detected (Not Detect)
[2021-06-19 22:00] VITALS: BP 125/60; PULSE 78; RESP 125; O2SAT 92
[2021-06-19 23:56] VITALS: BP 115/64; PULSE 78; RESP 16; O2SAT 92
--- NOTE | 2021-06-20 00:05 | PC.NURSE ---
pt being transfered to overflow room 10. called to give report and they will take it on arrival.
[2021-06-20 07:12] VITALS: BP 103/60; PULSE 76; RESP 16; O2SAT 95
[2021-06-20 08:46] VITALS: BP 103/60; PULSE 76; O2SAT 95
--- NOTE | 2021-06-20 10:39 | PC.NURSE ---
Pt's Otoniel: [phone]
--- NOTE | 2021-06-20 10:40 | MHC.CM.ED ---
Received case management consult from Maida LONGO. Patient came to the ER due weakness. Work up essentially negative. Physical therapy eval completed. Home services are being recommended. Patient is well known to case management. Met with patient in regards to discharge planning. Patient lives with her , has services through the [place] and [facility] to remain at home. PCP verified. Copy of HCP verified to be onfile. Patient received 2 Moderna vaccines. Patient feels she can safely return home. However is requesting BLS transport home. [facility] booked. Patient, Rubi HERNANDEZ and Dr Morrow aware. Continue to monitor for d/c needs.
--- NOTE | 2021-06-20 11:59 | PC.NURSE ---
Pt D/C from ED Overflow with EMS transport back home. IV removed prior to D/C, and paperwork given to pt who states understanding. Pt denies any further questions as well as stating she definitely does not want rehab.
== END 2021-06-20 12:01 | disposition home or self-care (01) ==
PROVIDERS: Physician Assistant; Emergency Provider Internal Medicine; PCP Internal Medicine
DX: R53.1 Weakness (principal); R05.9 Cough, unspecified; Z20.822 Contact with and (suspected) exposure to COVID-19; R06.02 Shortness of breath; G35 Multiple sclerosis; E78.5 Hyperlipidemia, unspecified; F19.10 Other psychoactive substance abuse, uncomplicated; G81.94 Hemiplegia, unspecified affecting left nondominant side; F17.200 Nicotine dependence, unspecified, uncomplicated; Z79.82 Long term (current) use of aspirin; Z79.899 Other long term (current) drug therapy; Z79.02 Long term (current) use of antithrombotics/antiplatelets
CPT/HCPCS: 51701; 70450; 71045; 80048; 80076; 80307; 81003; 83605; 83735; 83880; 84484; 85025; 87040; 87635; 93005; 96360; 97162; 99285

== ENCOUNTER 2021-06-22 14:03 | Emergency (ER) | payer MEDICARE, SELFPAY ==
[2021-06-22 14:22] VITALS: BP 131/74; PULSE 109; RESP 20; TEMP 37.3; O2SAT 98; BMI 25.8
--- NOTE | 2021-06-22 14:43 | ECG_ITS ---
Test Reason : weakness Blood Pressure : / mmHG Vent. Rate : 111 BPM Atrial Rate : 111 BPM P-R Int : 124 ms QRS Dur : 068 ms QT Int : 324 ms P-R-T Axes : 066 040 097 degrees QTc Int : 440 ms Sinus tachycardia Nonspecific ST and T wave abnormality Abnormal ECG When compared with ECG of 19-JUN-2021 13:32, No significant change was found Referred By: Fariba Morrow Electronically Signed By:Duc Salcido
--- NOTE | 2021-06-22 14:54 | ED_ITS ---
HPI - General Adult General Chief complaint: Failure to Thrive Stated complaint: FTT,HX OF MS Time Seen by Provider: 06/22/21 14:26 Source: patient and EMS Mode of arrival: EMS Limitations: no limitations History of Present Illness HPI narrative: Patient comes to the emergency room complaining feeling weak. According to EMS, the patient's reported to EMS that the patient has not been herself for the last 2 days. Patient states that she has chronic pain, no new symptoms. Patient is teary, states that her does not want her at home, but she would like to return home. Related Data Home Medications Medication Instructions Recorded Confirmed acetaminophen 325 mg tablet 650 mg PO Q6H PRN 06/09/21 06/09/21 aspirin 81 mg chewable tablet 81 mg PO DAILY 06/09/21 06/09/21 baclofen 20 mg tablet 20 mg PO BEDTIME 06/09/21 06/09/21 baclofen 20 mg tablet 20 mg PO QID 06/09/21 06/09/21 diazepam 5 mg tablet 10 mg PO BEDTIME PRN 06/09/21 06/09/21 ibuprofen 200 mg tablet 400 mg PO Q6H PRN 06/09/21 06/09/21 simvastatin 40 mg tablet 40 mg PO BEDTIME 06/09/21 06/09/21 zolpidem 10 mg tablet 10 mg PO BEDTIME PRN 06/09/21 06/09/21 Previous Rx's Medication Instructions Recorded levofloxacin 500 mg tablet 500 mg PO DAILY #3 tab 06/11/21 Allergies Allergy/AdvReac Type Severity Reaction Status Date / Time No Known Allergies Allergy Verified 04/18/20 09:07 Review of Systems Review of Systems: Constitutional : No Weight loss, No Fever, No Chills, No Night Sweats, No Fatigue, No Malaise ENT/Mouth : No Hearing loss, No Ear Pain, No Nasal Congestion, No Sinus Pain, No Hoarseness, No sore throat, No Rhinorrhea, No Swallowing Difficulty Eyes: No Eye Pain, No Swelling, No Redness, No Foreign Body, No Discharge, No Vision Changes Cardiovascular : No chest pain, no shortness of breath Respiratory : No Cough, No Sputum, No Wheezing, No Smoke Exposure, No Dyspnea Gastrointestinal : No Nausea, No Vomiting, No Diarrhea, No Constipation, No abdominal Pain, No Hematochezia, No Melena Genitourinary : no irregular bleeding, No Dysuria, No Urinary Frequency, No Hematuria, No Urinary Incontinence, No Urgency, No Flank Pain, No Urinary Flow Changes, No Hesitancy Musculoskeletal : Complaining of diffuse body aches Skin : No Skin Lesions, No rash Neuro : No Weakness, No Numbness, No Paresthesias, No Loss of Consciousness, No Dizziness, No Headache Psych : No Anxiety/Panic, No Depression, No SI/HI/AH/VH, No Social Issues, Heme/Lymph: No Bruising, No Bleeding,No Lymphadenopathy Endocrine : No Polyuria, No Polydipsia, No Temperature Intolerance [facility] Past Medical History Medical History Femoral distal fracture Fracture of left tibial plateau Frequent falls Hemiparesis of left nondominant side Hyperlipidemia Left hemiparesis Left humeral fracture Multiple sclerosis NSTEMI (non-ST elevated myocardial infarction) Polysubstance abuse Seizure disorder Family History Family History Other Adopted Social History Social History Alcohol intake: never Patient Tobacco Use Status: Current everyday Tobacco user Substance Use Type: Opiates Advance Directives: Yes Advance Directives on File: Yes Advance Directives Date on File: 04/10/20 Current occupational status: retired Physical Exam Vital Signs: Vital Signs: Last Vital Signs Temp 99.1 F 06/22/21 14:22 Pulse 109 H 06/22/21 14:22 Resp 20 06/22/21 14:22 BP 131/74 06/22/21 14:22 Pulse Ox 98 06/22/21 14:22 BMI result Body Mass Index 25.8 Const: Other: Appearance: Alert. Oriented X3. No acute distress. Eyes: Pupils equal, round and reactive to light. ENT: Pharynx normal. Neck: Normal inspection. Neck supple. No lymph nodes noted. No crepitus CVS: Normal heart rate and rhythm. Pulses normal. Normal S1 and S2 Respiratory: No respiratory distress. Breath sounds normal. No Wheezing. No rales Abdomen: Soft and nontender. No rigidity. No distention. good BS x4 Skin: Skin warm and dry. Normal skin color. Normal skin turgor. Extremities: No lower extremity edema. No lower extremity edema. No Lacerations. No Rash Neuro: Oriented X 3. No motor deficit. No sensory deficit. Moving all extermities. No slurred speech. Course Course Course Narrative: Patient's labs pending. Patient has no acute issues. Patient states that they do not have any nursing assistance at home, patient is willing to be evaluated for care at home. Patient does not want to go to a facility. Once labs are done, patient will need case management/rehab. sign out given to Dr. Glynn Medical Decision Making Lab Data Result diagrams: 06/22/21 15:44 06/22/21 15:43 Labs: Lab Results 06/22/21 06/22/21 06/22/21 Range/Units 15:43 15:44 15:44 WBC 9.8 (4.8-10.8) X10*3/uL RBC 5.07 (4.20-5.50) X10*6/uL Hgb 15.0 (12.0-16.0) g/dl Hct 46.2 (37.0-47.0) % MCV 91.1 (80.0-98.0) fL MCH 29.6 (27.0-33.0) pg MCHC 32.5 (31.0-35.0) g/dl RDW 13.9 (11.0-16.0) % Plt Count 392 (160-400) X10*3/uL MPV 8.9 L (9.4-12.3) fL Immature Gran % (Auto) 0.5 H (0.0-0.4) % Neut % (Auto) 88.3 H (45-73) % Lymph % (Auto) 4.2 L (20-40) % [place] % (Auto) 6.7 (2-11) % Eos % (Auto) 0.1 (0-4) % Baso % (Auto) 0.2 (0-2) % Lymph # (Auto) 0.4 L (1.2-4.9) X10*3/uL [place] # (Auto) 0.7 (0.1-1.2) X10*3/uL Eos # (Auto) 0.0 (0.0-0.4) X10*3/uL Baso # (Auto) 0.0 (0.0-0.2) X10*3/uL Abs Immat Gran (auto) 0.05 H (0.00-0.03) X10*3/uL Absolute Neuts (auto) 8.7 H (2.0-8.3) x10*3/uL Absolute Nucleated RBC 0.000 (0.0-0.012) X10*3/uL Nucleated RBC % (auto) 0.0 (0.0-0.2) /100WBC Sodium 143 (135-145) mmol/L Potassium 4.4 (3.3-5.1) mmol/L Chloride 104 (96-108) mmol/L Carbon Dioxide 27 (22-29) mmol/L Anion Gap 16 (12-20) BUN 6 L (9-16) mg/dL Creatinine 0.72 (0.5-1.4) mg/dL Estim Creat Clear Calc 82.6 Estimated GFR > 60 Random Glucose 119 H (60-115) mg/dL Calcium 9.9 (8.4-10.2) mg/dL Total Bilirubin 0.3 (0.0-1.0) mg/dL Direct Bilirubin < 0.2 (0.0-0.5) mg/dL AST 11 (5-31) U/L ALT 9 (0-31) U/L Alkaline Phosphatase 78 (39-117) U/L Troponin I High Sens < 3.5 (<3.5-17.0) ng/L Total Protein 7.4 (6.5-8.0) g/dL Albumin 4.2 (3.5-5.0) g/dL Urine Color Urine Appearance Urine pH (5.0-8.0) Ur Specific [place] (1.005-1.025) Urine Protein (NEG-TRACE) MG/DL Urine Glucose (UA) (NEG) MG/DL Urine Ketones (NEG) MG/DL Urine Blood (NEG) Urine Nitrite (NEG) Ur Leukocyte Esterase (NEG) Urine RBC (0) /HPF Urine WBC (0-4) /HPF Ur Squamous Epith Cells /LPF Urine Bacteria /LPF Urine Yeast /HPF COVID-19 (ALESSANDRA) (Negative) COVID-19 Clin Com 06/22/21 06/22/21 Range/Units 15:44 15:44 WBC (4.8-10.8) X10*3/uL RBC (4.20-5.50) X10*6/uL Hgb (12.0-16.0) g/dl Hct (37.0-47.0) % MCV (80.0-98.0) fL MCH (27.0-33.0) pg MCHC (31.0-35.0) g/dl RDW (11.0-16.0) % Plt Count (160-400) X10*3/uL MPV (9.4-12.3) fL Immature Gran % (Auto) (0.0-0.4) % Neut % (Auto) (45-73) % Lymph % (Auto) (20-40) % [place] % (Auto) (2-11) % Eos % (Auto) (0-4) % Baso % (Auto) (0-2) % Lymph # (Auto) (1.2-4.9) X10*3/uL [place] # (Auto) (0.1-1.2) X10*3/uL Eos # (Auto) (0.0-0.4) X10*3/uL Baso # (Auto) (0.0-0.2) X10*3/uL Abs Immat Gran (auto) (0.00-0.03) X10*3/uL Absolute Neuts (auto) (2.0-8.3) x10*3/uL Absolute Nucleated RBC (0.0-0.012) X10*3/uL Nucleated RBC % (auto) (0.0-0.2) /100WBC Sodium (135-145) mmol/L Potassium (3.3-5.1) mmol/L Chloride (96-108) mmol/L Carbon Dioxide (22-29) mmol/L Anion Gap (12-20) BUN (9-16) mg/dL Creatinine (0.5-1.4) mg/dL Estim Creat Clear Calc Estimated GFR Random Glucose (60-115) mg/dL Calcium (8.4-10.2) mg/dL Total Bilirubin (0.0-1.0) mg/dL Direct Bilirubin (0.0-0.5) mg/dL AST (5-31) U/L ALT (0-31) U/L Alkaline Phosphatase (39-117) U/L Troponin I High Sens (<3.5-17.0) ng/L Total Protein (6.5-8.0) g/dL Albumin (3.5-5.0) g/dL Urine Color STRAW Urine Appearance CLEAR Urine pH 5.5 (5.0-8.0) Ur Specific [place] 1.015 (1.005-1.025) Urine Protein NEG (NEG-TRACE) MG/DL Urine Glucose (UA) NEG (NEG) MG/DL Urine Ketones 40 (NEG) MG/DL Urine Blood 1+ H (NEG) Urine Nitrite NEG (NEG) Ur Leukocyte Esterase NEG (NEG) Urine RBC 0-2 (0) /HPF Urine WBC 0-2 (0-4) /HPF Ur Squamous Epith Cells TRACE /LPF Urine Bacteria NONE /LPF Urine Yeast 1+ /HPF COVID-19 (ALESSANDRA) Negative (Negative) COVID-19 Clin Com See Note Discharge Plan Discharge Clinical Impression: Multiple sclerosis Patient Disposition: Still a Patient Prescriptions: No [facility] acetaminophen 325 mg Tablet 650 mg PO Q6H PRN (Reason: Pain) RF: 0 ibuprofen 200 mg Tablet 400 mg PO Q6H PRN (Reason: Pain) RF: 0 zolpidem 10 mg Tablet 10 mg PO BEDTIME PRN (Reason: Insomnia) RF: 0 aspirin 81 mg Tablet,Chewable 81 mg PO DAILY RF: 0 diazepam 5 mg Tablet 10 mg PO BEDTIME PRN (Reason: anxiety/sleep) RF: 0 simvastatin 40 mg Tablet 40 mg PO BEDTIME RF: 0 baclofen 20 mg Tablet 20 mg PO QID RF: 0 baclofen 20 mg Tablet 20 mg PO BEDTIME RF: 0 levofloxacin 500 mg tablet 500 mg PO DAILY Qty: 3 RF: 0
[2021-06-22 15:48] LABS: MANUAL DIFF FLAG NO
[2021-06-22 15:50] LABS: Basophils Percent Auto 0.2 % (0-2); Eosinophils Percent Auto 0.1 % (0-4); Hematocrit 46.2 % (37.0-47.0); Imm Gran Abs Auto 0.05 X10*3/uL (0.00-0.03); Imm Gran Pct Auto 0.5 % (0.0-0.4); Lymphocytes Absolute Auto 0.4 X10*3/uL (1.2-4.9); Lymphocytes Percent Auto 4.2 % (20-40); Mean Corpuscular HGB Conc 32.5 g/dl (31.0-35.0); Mean Corpuscular Hemoglobin 29.6 pg (27.0-33.0); Mean Corpuscular Volume 91.1 fL (80.0-98.0); Mean Platelet Volume 8.9 fL (9.4-12.3); Monocytes Absolute Auto 0.7 X10*3/uL (0.1-1.2); Monocytes Percent Auto 6.7 % (2-11); Neutrophils Absolute Auto 8.7 x10*3/uL (2.0-8.3); Neutrophils Percent Auto 88.3 % (45-73); Platelet Count 392 X10*3/uL (160-400); Red Blood Count 5.07 X10*6/uL (4.20-5.50); Red Cell Distribution Width 13.9 % (11.0-16.0); White Blood Count 9.8 X10*3/uL (4.8-10.8)
[2021-06-22 15:59] LABS: Appearance Urine CLEAR; Color Urine STRAW; Glucose Urine UA NEG (NEG); Leukocyte Esterase Urine NEG (NEG); Nitrite Urine NEG (NEG); PH 5.5 (5.0-8.0); Specific Gravity - Urine 1.015 (1.005-1.025); UACC Culture Trigger NO; Urine Blood 1+ (NEG); Urine Ketones 40 MG/DL (NEG); Urine Protein NEG (NEG-TRACE)
--- NOTE | 2021-06-22 16:08 | MHC.CM.PN ---
DP pending PT eval.
[2021-06-22 16:10] LABS: COVID-19 Test Negative (Negative)
[2021-06-22 16:13] LABS: Troponin-I High Sensitivity < 3.5 ng/L (<3.5-17.0)
[2021-06-22 16:14] LABS: Alanine Aminotransferase 9 U/L (0-31); Albumin Level 4.2 g/dL (3.5-5.0); Alkaline Phosphatase 78 U/L (39-117); Anion Gap 16 (12-20); Aspartate Amino Transferase 11 U/L (5-31); Bilirubin Direct < 0.2 mg/dL (0.0-0.5); Bilirubin Total 0.3 mg/dL (0.0-1.0); Blood Urea Nitrogen 6 mg/dL (9-16); Calcium 9.9 mg/dL (8.4-10.2); Carbon Dioxide 27 mmol/L (22-29); Chloride 104 mmol/L (96-108); Creatinine Clr Calc Pharmacy 82.6; Estimated Glomerular Filt Rate > 60; Glucose Random 119 mg/dL (60-115); Potassium 4.4 mmol/L (3.3-5.1); Sodium 143 mmol/L (135-145); Total Protein 7.4 g/dL (6.5-8.0)
[2021-06-22 16:26] LABS: RBC Urine 0-2 /HPF (0); Squamous Epithelial Cell Urine TRACE /LPF; WBC Urine 0-2 /HPF (0-4)
[2021-06-22 19:39] VITALS: BP 127/67; PULSE 107; RESP 16; TEMP 36.9; O2SAT 95
[2021-06-23 00:04] VITALS: BP 124/66; PULSE 100; RESP 20; TEMP 37.1; O2SAT 94
[2021-06-23 01:19] VITALS: O2SAT 94
--- NOTE | 2021-06-23 01:40 | PC.NURSE ---
pt a&o, no sob or chest pain. Pt changed and completed bed change. Tiffany- care completed. Will continue to monitor.
[2021-06-23 06:04] VITALS: BP 118/70; PULSE 90; RESP 18; TEMP 36.8; O2SAT 96
[2021-06-23 08:29] VITALS: BP 110/62; PULSE 99; RESP 16; O2SAT 93
--- NOTE | 2021-06-23 09:28 | PC.NURSE ---
Pt requesting breakfast tray. Called kitchen to have breakfast tray brought to ED. Gave patient pudding, apple juice, and crackers as a snack while they wait for breakfast tray. Has use of only 1 side of her body (right side) at baseline. Kitchen staff aware to modify tray to be easier to eat due to deficit.
--- NOTE | 2021-06-23 10:35 | MHC.CM.ED ---
At this time [facility] and [facility] are able to offer beds. Met with patient. [facility] is patient's first choice. [facility] notified. Attempted to reach patient , Otoniel via telephone at [phone]. Left message explaing patient was agreeable to placement and would call bed when bed and time was confirmed. Continue to monitor for d/c needs.
[2021-06-23 11:07] VITALS: BP 113/48; PULSE 94; RESP 16; O2SAT 99
--- NOTE | 2021-06-23 11:52 | MHC.CM.ED ---
[facility] is able to offer a bed. Patient can leave at 2pm. [facility] booked. Med nec with chart. Patient, Scot Frederick RN, and Danielle LONGO aware. Continue to monitor for d/c needs.
--- NOTE | 2021-06-23 12:37 | PHA.MEDREC ---
Pharmacy Consult ? Medication Reconciliation Pharmacy has completed the medication reconciliation. [facility]. Tried to verfied but phone always hangs up. Confirm control with PDMP. Patient reports Gabapentin which is no controled in [place] therefore it would not be reported on the PDMP. Alicia Thomas, PharmD
== END 2021-06-23 15:00 | disposition skilled nursing facility (03) ==
PROVIDERS: Emergency Medicine; Emergency Provider Emergency Medicine; PCP Internal Medicine
DX: G35 Multiple sclerosis (principal); R62.7 Adult failure to thrive; F11.10 Opioid abuse, uncomplicated; F17.200 Nicotine dependence, unspecified, uncomplicated; Z71.6 Tobacco abuse counseling; Z20.822 Contact with and (suspected) exposure to COVID-19; Z79.899 Other long term (current) drug therapy; Z79.82 Long term (current) use of aspirin
CPT/HCPCS: 36415; 51702; 80048; 80076; 81001; 81003; 84484; 85025; 87635; 93005; 97162; 99285

== ENCOUNTER 2021-07-13 10:45 | Inpatient (IN) | payer MEDICARE, OTHER, SELFPAY ==
--- NOTE | ~2021-07-13 | CT_ITS ---
EXAMINATION: CT BRAIN, CT CERVICAL SPINE, CT LUMBAR SPINE AND CT THORACIC SPINE. CLINICAL INFORMATION: History of fall. Pain. COMPARISON: CT brain 06/19/2021 TECHNIQUE: 5 mm thin axial and reformatted 2 mm thin sagittal and coronal images of brain were obtained. Axial 3 mm thin and reformatted 2 mm thin images of cervical, dorsal and lumbar spine were obtained. DLP [id number] FINDINGS: Brain: There is no acute intra-axial, extra-axial bleed, masses or midline shift. There is no acute infarction evolution. The lateral ventricles are symmetrical in size and configuration and enlarged. The carcamo to white matter difference is maintained normal. Bone windows reveal. Bilateral paranasal sinuses and mastoid air cells are well-aerated. There is no scalp soft tissue abnormality seen. Cervical spine: There is maintained cervical lordosis. The vertebral heights and alignment is normal. There is loss of C5-C6 and C6-C7 disc heights with moderate posterior spondylosis at C5-C6 and mild ventral spondylosis C5-C6 and C6-C7 disc levels. The craniovertebral junction and the C1-C2 alignment is normal. There is no visible acute fracture, dislocation or subluxation. The airway is widely patent. No abnormal neck lymph nodes or mass seen. The lung apices are clear. Dorsal spine: There is normal thoracic kyphosis. The vertebral heights, alignment and disc heights are normal. There is no visible acute fracture, dislocation or subluxation seen. There is no evidence of disc bulge, herniation or spinal stenosis at any of the disc levels. The neural foramina are patent bilaterally at all disc levels. There is diffuse osteopenia. The paravertebral soft tissues are normal. Lumbar spine: There is normal lumbar lordosis. The vertebral heights, alignment and disc heights are normal. There is no visible acute fracture, dislocation or subluxation. No lytic or sclerotic process seen. The paravertebral soft tissues are normal. CT/CT thoracic spine wo con IMPRESSION: No acute intracranial process seen. Degenerative disc changes with moderate posterior spondylosis C5-C6 and the general disc changes with mild posterior spondylosis C6-C7 disc levels. No visible acute fracture, dislocation or lytic process seen. There is bilateral C3-C4 and C4-C5 facet joint arthropathy and hypertrophy. Unremarkable CT lumbar spine exam.
--- NOTE | ~2021-07-13 | CT_ITS ---
EXAMINATION: CT CHEST WITHOUT CONTRAST CLINICAL INFORMATION: Cough. Evaluate left lung base. COMPARISON: Most recent prior CT of the chest done without contrast on 05/20/2019. TECHNIQUE: Multidetector volumetric CT imaging of the chest was done. Axial MIP volume rendering provided. Sagittal and coronal reformatted images were obtained. This CT examination was performed using dose optimization techniques as appropriate, variously including the following: *Automated exposure control *Adjustment of mA and/or kV according to patient size (this includes techniques or standardized protocols for targeted exams where dose is matched to indication/reason for exam; i.e. extremities or head) *Use of iterative reconstruction technique DLP: 280 mGy-cm FINDINGS: CAN FILLER: Linear airspace disease is noted at left lung base. LUNGS: Bibasilar linear airspace disease is noted including linear airspace disease at lingular segment of the left upper lobe and medial segment of the right middle lobe and pleural parenchymal thickening involving the anteroinferior part of both major fissures, likely represent pleural parenchymal scar and/or atelectasis and less likely to be infiltrate. Previously documented multilobar airspace disease seen on the study dated 05/20/2019 shows interval resolution. No evidence of any dense airspace consolidation on either side. The tracheobronchial tree is patent. However, nonspecific mural thickening is present along the left lateral and anterior wall of the proximal and mid trachea (58:9), not optimally characterized. Direct visualization may be considered for further clarification. MEDIASTINUM: There are no pathologically enlarged mediastinal or hilar lymphadenopathy present. Atherosclerotic disease of the aorta and is branches including coronary artery calcifications are noted. PLEURA: There is no pleural effusion. No pleural mass or thickening. AXILLA: No lymphadenopathy. UPPER ABDOMEN: No focal abnormalities. OSSEOUS STRUCTURES: No suspicious focal lesion. CT/CT chest wo con IMPRESSION: 1. Bibasilar linear airspace disease including linear airspace disease at lingular segment of the left upper lobe and medial segment of the right middle lobe and pleural parenchymal thickening involving anterior inferior part of both major fissures, likely represent pleural parenchymal scar and/or atelectasis and less likely to be infiltrate. 2. Nonspecific mural thickening of the left lateral and anterior wall of the proximal to mid trachea, not optimally characterized. Direct visualization may be considered for further practice. Fleischner guidelines were followed.
--- NOTE | ~2021-07-13 | US_ITS ---
EXAMINATION: US RETROPERITONEAL LIMITED (RENAL ONLY) CLINICAL INFORMATION: UTI/retention. COMPARISON: CT abdomen and pelvis with contrast 06/08/2021. Renal ultrasound 02/16/2019. TECHNIQUE: Real-time imaging of the kidneys. FINDINGS: RIGHT KIDNEY: 9.3 x 3.4 x 4.8 cm (SAG x AP x TRV). The kidney is normal in size, contour, and echogenicity. Renal cortical thickness is normal. No calculi or focal parenchymal lesions. No hydronephrosis. LEFT KIDNEY: 9.8 x 4.5 x 4.7 cm (SAG x AP x TRV). The kidney is normal in size, contour, and echogenicity. Renal cortical thickness is normal. No calculi or focal parenchymal lesions. No hydronephrosis. US/US renal BI IMPRESSION: Unremarkable sonographic imaging of the kidneys.
--- NOTE | ~2021-07-13 | XR_ITS ---
EXAMINATION: XR CHEST CLINICAL INFORMATION: Cough and weakness COMPARISON: Chest 06/19/2021 TECHNIQUE: 2 views of the chest were obtained. FINDINGS: The lungs are well-expanded with platelike atelectasis left lung base. Rest of the lungs are clear. The heart size and pulmonary vascularity is normal. No gross bony abnormality seen. XR/XR chest 2V IMPRESSION: Platelike atelectasis left lung base.
[2021-07-13 10:57] VITALS: BP 136/75; PULSE 89; RESP 14; TEMP 36.6; O2SAT 95
[2021-07-13 11:04] VITALS: PULSE 94; RESP 10; O2SAT 100; BMI 28.3
--- NOTE | 2021-07-13 11:23 | ECG_ITS ---
Test Reason : general medicine Blood Pressure : / mmHG Vent. Rate : 091 BPM Atrial Rate : 091 BPM P-R Int : 136 ms QRS Dur : 078 ms QT Int : 380 ms P-R-T Axes : 070 041 077 degrees QTc Int : 467 ms Normal sinus rhythm Normal ECG When compared with ECG of 22-JUN-2021 15:18, No significant change was found Referred By: Ayleen An Electronically Signed By:Duc Salcido
[2021-07-13 12:19] LABS: MANUAL DIFF FLAG NO
[2021-07-13 12:23] LABS: Basophils Percent Auto 0.2 % (0-2); Eosinophils Absolute Auto 0.1 X10*3/uL (0.0-0.4); Eosinophils Percent Auto 1.2 % (0-4); Hematocrit 43.7 % (37.0-47.0); Hemoglobin 14.4 g/dl (12.0-16.0); Imm Gran Abs Auto 0.05 X10*3/uL (0.00-0.03); Imm Gran Pct Auto 0.5 % (0.0-0.4); Lymphocytes Absolute Auto 0.5 X10*3/uL (1.2-4.9); Lymphocytes Percent Auto 5.4 % (20-40); Mean Corpuscular Hemoglobin 29.6 pg (27.0-33.0); Mean Corpuscular Volume 89.7 fL (80.0-98.0); Mean Platelet Volume 9.4 fL (9.4-12.3); Monocytes Absolute Auto 0.6 X10*3/uL (0.1-1.2); Monocytes Percent Auto 6.1 % (2-11); Neutrophils Absolute Auto 8.5 x10*3/uL (2.0-8.3); Neutrophils Percent Auto 86.6 % (45-73); Platelet Count 260 X10*3/uL (160-400); Red Blood Count 4.87 X10*6/uL (4.20-5.50); Red Cell Distribution Width 14.1 % (11.0-16.0); White Blood Count 9.8 X10*3/uL (4.8-10.8)
--- NOTE | 2021-07-13 12:24 | ED_ITS ---
HPI - General Adult General Chief complaint: General Medical Stated complaint: FALL Time Seen by Provider: 07/13/21 10:59 Source: patient and EMS Mode of arrival: EMS Limitations: physical limitation (left hemipareis, wheelchair bound, MS) History of Present Illness HPI narrative: 60-year-old female with a history of multiple sclerosis, left hemiparesis, who is wheelchair-bound, presents with a complaint of weakness, falls, and pain in her legs. Patient states she fell and hurt her back and legs yesterday and again today. She can not tell me how she fell. Says she has not been able to get out of her wheelchair for the last 2 days, that she is too weak to feed herself or get anything to eat or drink. States she has had weakness in her right leg for 2 weeks. lives with her, but perhaps does not help her with tasks of daily living Endorses mild cough EMS states the house has trash and pills scattered on the floor. Patient denies chest pain, shortness of breath, dysuria, fevers Related Data Home Medications Medication Instructions Recorded Confirmed aspirin 81 mg chewable tablet 81 mg PO DAILY 06/09/21 07/13/21 baclofen 20 mg tablet 20 mg PO BEDTIME 06/09/21 07/13/21 baclofen 20 mg tablet 20 mg PO QID 06/09/21 07/13/21 diazepam 5 mg tablet 10 mg PO BID PRN 06/09/21 07/13/21 simvastatin 40 mg tablet 40 mg PO BEDTIME 06/09/21 07/13/21 zolpidem 10 mg tablet 10 mg PO BEDTIME PRN 06/09/21 07/13/21 carisoprodol 350 mg tablet 350 mg PO TID PRN 06/23/21 07/13/21 (Soma) gabapentin 400 mg tablet 400 mg PO BID@1200,2100 06/23/21 07/13/21 Allergies Allergy/AdvReac Type Severity Reaction Status Date / Time No Known Allergies Allergy Verified 04/18/20 09:07 Review of Systems Verdana 4l Constitutional: Verdana 4d Constitutional: Verdana 4d Verdana 4d Reports fatigue, Denies fever(s), Denies headache(s), Reports lethargy, Reports malaise and Reports weakness Verdana 4l Eyes: Verdana 4d Verdana 4d Eyes: Verdana 4d Denies blurry vision and Denies change in vision Verdana 4l ENT: Verdana 4d Denies headache(s) Verdana 4l Cardiovascular: Verdana 4d Cardiovascular: Verdana 4d Verdana 4d Denies chest pain, Denies leg edema, Denies palpitations, Denies dyspnea and Denies dyspnea on exertion Verdana 4l Respiratory: Verdana 4d Verdana 4d Respiratory: Verdana 4d Reports cough, Denies dyspnea and Denies dyspnea on exertion Verdana 4l Gastrointestinal: Verdana 4d Gastrointestinal: Verdana 4d Verdana 4d Denies abdominal pain, Denies diarrhea, Denies nausea and Denies vomiting Verdana 4l Genitourinary: Verdana 4d Verdana 4d Genitourinary: Verdana 4d Denies dysuria and Denies urinary incontinence Verdana 4l Musculoskeletal: Verdana 4d Musculoskeletal: Verdana 4d Verdana 4d Reports back pain, Reports muscle weakness and Denies tingling Verdana 4l Neurologic: Verdana 4d Reports Abnormal speech present (slowed), Denies headache(s), Denies tingling and Reports weakness Verdana 4d Comments: Verdana 4d Verdana 4d weak in legs Verdana 4d Verdana 4l Endocrine: Verdana 4d Verdana 4d Endocrine: Verdana 4d Reports fatigue and Denies palpitations PMFSH Past Medical History Medical History Femoral distal fracture Fracture of left tibial plateau Frequent falls Hemiparesis of left nondominant side Hyperlipidemia Left hemiparesis Left humeral fracture Multiple sclerosis NSTEMI (non-ST elevated myocardial infarction) Polysubstance abuse Seizure disorder Family History Family History Other Adopted Social History Social History Alcohol intake: never Patient Tobacco Use Status: Current everyday Tobacco user Substance Use Type: Opiates Advance Directives: Yes Advance Directives on File: Yes Advance Directives Date on File: 04/10/20 Current occupational status: retired Physical Exam Verdana 4l Vital Signs: Verdana 4d Verdana 4d Vital Signs: Verdana 4d Verdana 4Bd Last Vital Signs Verdana 4d Senior Budget Analyst New 4d 4d Temp 98.2 F 07/13/21 12:35 4d Pulse 93 07/13/21 12:35 4d Resp 12 07/13/21 12:35 BP 129/73 07/13/21 12:35 Pulse Ox 97 07/13/21 12:35 BMI result Body Mass Index 28.3 Const: General: cooperative, no acute distress, alert, awake, ill appearing acutely and chronically, lethargic and poor hygiene Nutritional Appearance: malnourished Orientation/consciousness: oriented to person, oriented to place, No oriented to time and lethargic Limitations: physical limitations (left hemiparesis) and wheelchair HENMT: Head: Yes normal to inspection, Yes normocephalic and Yes atraumatic Ears: hearing grossly normal bilaterally General nose exam: Normal external nose present Mouth: moist mucous membranes abnormal (dry), lip abnormal (skin flaking lower lip), tongue abnormal (brown tongue) discolored and fissured and no trismus Teeth and gingiva: poor dentition Throat: Yes uvula midline and Yes posterior oropharynx abnormal (brown and erythematous) Eyes: Conjunctivae: conjunctivae normal Pupils: Equal, round and reactive pupils pr esent EOM: EOMs intact bilaterally Neck: Neck: Yes full ROM, Yes no lymphadenopathy and Yes supple Resp: Effort & Inspection: normal respiratory effort and able to speak in complete sentences Auscultation: clear to auscultation bilaterally, no crackles, no rales, no rhonchi and no wheezes Cardio: Rate: regular rate Rhythm: regular rhythm Heart sounds: S1 normal heart sound present and S2 normal heart sound present GI: Inspection: Yes normal to inspection Palpation (GI): Soft to palpation, Tenderness to palpation present (GI) suprapubicly, no guarding and not rigid Percussion: Yes normal to percussion Auscultation: normal bowel sounds : General: Yes no CVA tenderness Back/Spine/Pelvis: Back: no CVA tenderness Cervical Spine: normal cervical lordosis, cervical ROM normal, Cervical spine tenderness and No step off deformity Thoracic/L umbar Spine: No thoraco-lumbar spasm, thoracic spinal tenderness and No lumbar spinal tenderness Pelvis: no pain with anterior-posterior compression and no pain with lateral compression Skin: Other: dry, pallor nicotine stains right fingers Hair: general thinning Neuro: Other: Baseline left adama paresis. Patient is able to hold arm up on right side for 10 seconds, has intact cranial nerves, sensation. Patient's right leg is weak, she can move it but cannot hold it up for resist when I push on her right leg. States this has been going on for 2 weeks. General: oriented to person, oriented to place, No oriented to time, tone normal, moves all extremities and Unable to assess gait Cranial nerves: Yes CN's II-XII intact bilaterally, Yes Facial sensation intact/muscles of mastication intact, Yes Equal, round and reactive pupils present, Yes Bilaterally intact EOM present, Yes Nystagmus not present, Yes Normal facial strength present, Yes Midline tongue present, Yes Ability to bilaterally rotate head present and Yes Ability to bilaterally elevate shoulders present Speech: Abnormal speech present (slowed) Gait exam (Neuro): Unable to assess gait Coordination: [id number] test normal (on right) Pupils: Normal pupillary reactivity/response: bilateral Extrem: Other: chronic left hemiparesis Psych: Appearance: grossly normal Affect: normal affect Attitude: cooperative Thought process: Normal thought process present Course Course Course Narrative: 60-year-old female with a history of MS, left hemiparesis, urinary retention, presents for weakness. Patient states her right leg has been weak for the last 2 weeks. States she fell yesterday and today, although she cannot characterize how she fell. Patient is only alert and oriented to person and place, not to time States her back and her legs hurt. On exam, patient has stable vitals, she is chronically ill-appearing, she is weak in her right leg, however states this is been going on for 2 weeks. The patient is diffusely tender in her entire abdomen, she has cervical spine tenderness and thoracic spinal tenderness it is hard to localize. Patient has very dry mucous membranes, and a brown and cracked tongue, this could be from smoking. Discussed imaging with Dr Wilson, he said head CT would be fine, that we do not need MRI. Reevaluation(s) Reevaluation #1: Pt had 900 cc urine in bladder after urinating; will place [facility] Ua shows UTI, started Rocephin CXR shows platelike atelectasis left lung base, will get CT chest to evaluate further CT of head, C-spine, thoracic spine, lumbar spine unremarkable Reevaluation #2: CT/CT chest wo con IMPRESSION: ? 1. Bibasilar linear airspace disease including linear airspace disease at lingular segment of the left upper lobe and medial segment of the right middle lobe and pleural parenchymal thickening involving anterior inferior part of both major fissures, likely represent pleural parenchymal scar and/or atelectasis and less likely to be infiltrate. 2. Nonspecific mural thickening of the left lateral and anterior wall of the proximal to mid trachea, not optimally characterized. Direct visualization may be considered for further practice. Medical Decision Making Lab Data Lab results reviewed: Yes I reviewed the patient's lab results. Result diagrams: 07/13/21 12:16 07/13/21 12:16 Labs: Lab Results 07/13/21 07/13/21 07/13/21 Range/Units 12:16 12:16 12:16 WBC 9.8 (4.8-10.8) X10*3/uL RBC 4.87 (4.20-5.50) X10*6/uL Hgb 14.4 (12.0-16.0) g/dl Hct 43.7 (37.0-47.0) % MCV 89.7 (80.0-98.0) fL MCH 29.6 (27.0-33.0) pg MCHC 33.0 (31.0-35.0) g/dl RDW 14.1 (11.0-16.0) % Plt Count 260 D (160-400) X10*3/uL MPV 9.4 (9.4-12.3) fL Immature Gran % (Auto) 0.5 H (0.0-0.4) % Neut % (Auto) 86.6 H (45-73) % Lymph % (Auto) 5.4 L (20-40) % [place] % (Auto) 6.1 (2-11) % Eos % (Auto) 1.2 (0-4) % Baso % (Auto) 0.2 (0-2) % Lymph # (Auto) 0.5 L (1.2-4.9) X10*3/uL [place] # (Auto) 0.6 (0.1-1.2) X10*3/uL Eos # (Auto) 0.1 (0.0-0.4) X10*3/uL Baso # (Auto) 0.0 (0.0-0.2) X10*3/uL Abs Immat Gran (auto) 0.05 H (0.00-0.03) X10*3/uL Absolute Neuts (auto) 8.5 H (2.0-8.3) x10*3/uL Absolute Nucleated RBC 0.000 (0.0-0.012) X10*3/uL Nucleated RBC % (auto) 0.0 (0.0-0.2) /100WBC Sodium 139 (135-145) mmol/L Potassium 5.0 (3.3-5.1) mmol/L Chloride 99 (96-108) mmol/L Carbon Dioxide 28 (22-29) mmol/L Anion Gap 17 (12-20) BUN 15 D (9-16) mg/dL Creatinine 0.72 (0.5-1.4) mg/dL Estim Creat Clear Calc 80.2 Estimated GFR > 60 Random Glucose 90 (60-115) mg/dL Lactic Acid (0.5-2.0) mmol/L Calcium 9.7 (8.4-10.2) mg/dL Total Bilirubin 0.6 (0.0-1.0) mg/dL AST 18 D (5-31) U/L ALT 9 (0-31) U/L Alkaline Phosphatase 78 (39-117) U/L Troponin I High Sens < 3.5 (<3.5-17.0) ng/L C-Reactive Protein 7.19 H (< or = 0.50) mg/dL Total Protein 7.3 (6.5-8.0) g/dL Albumin 4.2 (3.5-5.0) g/dL Urine Color Urine Appearance Urine pH (5.0-8.0) Ur Specific [place] (1.005-1.025) Urine Protein (NEG-TRACE) MG/DL Urine Glucose (UA) (NEG) MG/DL Urine Ketones (NEG) MG/DL Urine Blood (NEG) Urine Nitrite (NEG) Ur Leukocyte Esterase (NEG) Urine RBC (0) /HPF Urine WBC (0-4) /HPF Ur Squamous Epith Cells /LPF Urine Bacteria /LPF Urine Mucus /LPF Salicylates < 5.0 L (15-30) mg/dL Urine Opiates Screen (Not Detect) Urine Fentanyl Screen (Not Detect) Acetaminophen 2 (<30) mcg/mL Ur Barbiturates Screen (Not Detect) Ur Phencyclidine Scrn (Not Detect) Ur Amphetamines Screen (Not Detect) U Benzodiazepines Scrn (Not Detect) Urine Cocaine Screen (Not Detect) U Marijuana (THC) Screen (Not Detect) Ethyl Alcohol mg/dL COVID-19 (ALESSANDRA) (Negative) COVID-19 Clin Com 07/13/21 07/13/21 07/13/21 Range/Units 12:16 12:16 12:24 WBC (4.8-10.8) X10*3/uL RBC (4.20-5.50) X10*6/uL Hgb (12.0-16.0) g/dl Hct (37.0-47.0) % MCV (80.0-98.0) fL MCH (27.0-33.0) pg MCHC (31.0-35.0) g/dl RDW (11.0-16.0) % Plt Count (160-400) X10*3/uL MPV (9.4-12.3) fL Immature Gran % (0.0-0.4) % (Auto) Neut % (Auto) (45-73) % Lymph % (Auto) (20-40) % [place] % (Auto) (2-11) % Eos % (Auto) (0-4) % Baso % (Auto) (0-2) % Lymph # (Auto) (1.2-4.9) X10*3/uL [place] # (Auto) (0.1-1.2) X10*3/uL Eos # (Auto) (0.0-0.4) X10*3/uL Baso # (Auto) (0.0-0.2) X10*3/uL Abs Immat Gran (auto) (0.00-0.03) X10*3/uL Absolute Neuts (auto) (2.0-8.3) x10*3/uL Absolute Nucleated (0.0-0.012) RBC X10*3/uL Nucleated RBC % (0.0-0.2) /100WBC (auto) Sodium (135-145) mmol/L Potassium (3.3-5.1) mmol/L Chloride (96-108) mmol/L Carbon Dioxide (22-29) mmol/L Anion Gap (12-20) BUN (9-16) mg/dL Creatinine (0.5-1.4) mg/dL Estim Creat Clear Calc Estimated GFR Random Glucose (60-115) mg/dL Lactic Acid (0.5-2.0) mmol/L Calcium (8.4-10.2) mg/dL Total Bilirubin (0.0-1.0) mg/dL AST (5-31) U/L ALT (0-31) U/L Alkaline Phosphatase (39-117) U/L Troponin I High Sens (<3.5-17.0) ng/L C-Reactive Protein (< or = 0.50) mg/dL Total Protein (6.5-8.0) g/dL Albumin (3.5-5.0) g/dL Urine Color Urine Appearance Urine pH (5.0-8.0) Ur Specific [place] (1.005-1.025) Urine Protein (NEG-TRACE) MG/DL Urine Glucose (UA) (NEG) MG/DL Urine Ketones (NEG) MG/DL Urine Blood (NEG) Urine Nitrite (NEG) Ur Leukocyte Esterase (NEG) Urine RBC (0) /HPF Urine WBC (0-4) /HPF Ur Squamous Epith /LPF Cells Urine Bacteria /LPF Urine Mucus /LPF Salicylates (15-30) mg/dL Urine Opiates Screen Not Detected (Not Detect) Urine Fentanyl Screen POSITIVE H (Not Detect) Acetaminophen (<30) mcg/mL Ur Barbiturates Not Detected (Not Detect) Screen Ur Phencyclidine Scrn Not Detected (Not Detect) Ur Amphetamines Not Detected (Not Detect) Screen U Benzodiazepines POSITIVE H (Not Detect) Scrn Urine Cocaine Screen Not Detected (Not Detect) U Marijuana (THC) Not Detected (Not Detect) Screen Ethyl Alcohol < 10 mg/dL COVID-19 (ALESSANDRA) Negative (Negative) COVID-19 Clin Com See Note 07/13/21 07/13/21 Range/Units 12:24 14:44 WBC (4.8-10.8) X10*3/uL RBC (4.20-5.50) X10*6/uL Hgb (12.0-16.0) g/dl Hct (37.0-47.0) % MCV (80.0-98.0) fL MCH (27.0-33.0) pg MCHC (31.0-35.0) g/dl RDW (11.0-16.0) % Plt Count (160-400) X10*3/uL MPV (9.4-12.3) fL Immature Gran % (Auto) (0.0-0.4) % Neut % (Auto) (45-73) % Lymph % (Auto) (20-40) % [place] % (Auto) (2-11) % Eos % (Auto) (0-4) % Baso % (Auto) (0-2) % Lymph # (Auto) (1.2-4.9) X10*3/uL [place] # (Auto) (0.1-1.2) X10*3/uL Eos # (Auto) (0.0-0.4) X10*3/uL Baso # (Auto) (0.0-0.2) X10*3/uL Abs Immat Gran (auto) (0.00-0.03) X10*3/uL Absolute Neuts (auto) (2.0-8.3) x10*3/uL Absolute Nucleated RBC (0.0-0.012) X10*3/uL Nucleated RBC % (auto) (0.0-0.2) /100WBC Sodium (135-145) mmol/L Potassium (3.3-5.1) mmol/L Chloride (96-108) mmol/L Carbon Dioxide (22-29) mmol/L Anion Gap (12-20) BUN (9-16) mg/dL Creatinine (0.5-1.4) mg/dL Estim Creat Clear Calc Estimated GFR Random Glucose (60-115) mg/dL Lactic Acid 1.1 (0.5-2.0) mmol/L Calcium (8.4-10.2) mg/dL Total Bilirubin (0.0-1.0) mg/dL AST (5-31) U/L ALT (0-31) U/L Alkaline Phosphatase (39-117) U/L Troponin I High Sens (<3.5-17.0) ng/L C-Reactive Protein (< or = 0.50) mg/dL Total Protein (6.5-8.0) g/dL Albumin (3.5-5.0) g/dL Urine Color YELLOW Urine Appearance CLOUDY Urine pH 5.5 (5.0-8.0) Ur Specific [place] 1.025 (1.005-1.025) Urine Protein NEG (NEG-TRACE) MG/DL Urine Glucose (UA) NEG (NEG) MG/DL Urine Ketones 5 (NEG) MG/DL Urine Blood TRACE (NEG) Urine Nitrite POS H (NEG) Ur Leukocyte Esterase 3+ H (NEG) Urine RBC 0-2 (0) /HPF Urine WBC TNTC H (0-4) /HPF Ur Squamous Epith Cells TRACE /LPF Urine Bacteria 2+ /LPF Urine Mucus TRACE /LPF Salicylates (15-30) mg/dL Urine Opiates Screen (Not Detect) Urine Fentanyl Screen (Not Detect) Acetaminophen (<30) mcg/mL Ur Barbiturates Screen (Not Detect) Ur Phencyclidine Scrn (Not Detect) Ur Amphetamines Screen (Not Detect) U Benzodiazepines Scrn (Not Detect) Urine Cocaine Screen (Not Detect) U Marijuana (THC) Screen (Not Detect) Ethyl Alcohol mg/dL COVID-19 (ALESSANDRA) (Negative) COVID-19 Clin Com ECG Data Interpretation: Sinus at a rate of 91, CT 136, QRS 78, QTC 467, normal axis, no ST depressions or elevations, no T-wave abnormalities Discharge Plan Discharge Clinical Impression: UTI (urinary tract infection), Acute urinary retention, Adult failure to thrive Patient Disposition: Admitted As Inpatient
[2021-07-13 12:35] VITALS: BP 129/73; PULSE 93; RESP 12; TEMP 36.8; O2SAT 97
[2021-07-13 12:36] LABS: Ethanol < 10 mg/dL
[2021-07-13 12:39] LABS: Troponin-I High Sensitivity < 3.5 ng/L (<3.5-17.0)
[2021-07-13 12:42] LABS: Acetaminophen LAB 2 mcg/mL (<30); Alanine Aminotransferase 9 U/L (0-31); Albumin Level 4.2 g/dL (3.5-5.0); Alkaline Phosphatase 78 U/L (39-117); Anion Gap 17 (12-20); Aspartate Amino Transferase 18 U/L (5-31); Bilirubin Total 0.6 mg/dL (0.0-1.0); Blood Urea Nitrogen 15 mg/dL (9-16); Calcium 9.7 mg/dL (8.4-10.2); Carbon Dioxide 28 mmol/L (22-29); Chloride 99 mmol/L (96-108); Creatinine Clr Calc Pharmacy 80.2; Estimated Glomerular Filt Rate > 60; Glucose Random 90 mg/dL (60-115); Salicylate < 5.0 mg/dL (15-30); Sodium 139 mmol/L (135-145); Total Protein 7.3 g/dL (6.5-8.0)
[2021-07-13] MEDS: 0.9 % Sodium Chloride 1,000 ML 999 ML IV (12:46)
[2021-07-13 13:07] LABS: Appearance Urine CLOUDY; Color Urine YELLOW; Glucose Urine UA NEG (NEG); Leukocyte Esterase Urine 3+ (NEG); Nitrite Urine POS (NEG); PH 5.5 (5.0-8.0); Specific Gravity - Urine 1.025 (1.005-1.025); UACC Culture Trigger YES; Urine Blood TRACE (NEG); Urine Ketones 5 MG/DL (NEG); Urine Protein NEG (NEG-TRACE)
[2021-07-13 13:13] LABS: Bacteria Urine 2+ /LPF; Mucus Urine TRACE /LPF; RBC Urine 0-2 /HPF (0); Squamous Epithelial Cell Urine TRACE /LPF; UACC CULT YES; WBC Urine TNTC /HPF (0-4)
[2021-07-13 13:25] LABS: Amphetamine Screen Urine Not Detected (Not Detect); Barbiturates, Urine Not Detected (Not Detect); Benzodiazepines Screen Urine POSITIVE (Not Detect); Cannabinoid Screen Urine Not Detected (Not Detect); Cocaine Screen Urine Not Detected (Not Detect); Fentanyl, urine POSITIVE (Not Detect); Opiate Screen Urine Not Detected (Not Detect); Phencyclidine Screen Urine Not Detected (Not Detect)
[2021-07-13 14:15] LABS: COVID-19 Test Negative (Negative)
--- NOTE | 2021-07-13 14:53 | PHA.MEDREC ---
Addendum entered by Yas Pinto [facility] 07/14/21 09:23: Added Tecfidera 240 mg bid to med rec. Patient told RN she is also taking this medication. RN will check to see if patient can bring in her own med. Original Note: Pharmacy Consult ? Medication Reconciliation Pharmacy has completed the medication reconciliation.
[2021-07-13] MEDS: cefTRIAXone sodium 2 GM in 0.9 % Sodium Chloride 50 ML IV (15:00)
[2021-07-13 15:02] LABS: Lactic Acid 1.1 mmol/L (0.5-2.0)
[2021-07-13 15:55] LABS: C Reactive Protein 7.19 mg/dL (< or = 0.50)
--- NOTE | 2021-07-13 16:10 | P.HPHOSP_ITS ---
History of Present Illness Date of Service: 07/13/21 Chief Complaint: weakness, urinary retention 60yo F who is wheelchair bound due to L hemiparesis from MS, currently not on DMARDs, presenting with worsenng weakness, back and leg pain, and recurrent falls over the last 2 days. She feels too weak to feed herself or to go to the bathroom. Additionally, she has been unable to empty her bladder. She lives with her , who is retired; it is unclear what his level of involvement is in her care. She has VNA services. She denies fever, chills, cough, dyspnea, chest pain, nasuea, vomiting, or hematuria. Per EMS, the house has trash and pills scattered all over the floor. In the ED, vital signs were within normal limits. Post-void residual was 900 cc, so Marshall was ordered. UA showed pyuria, nitrituria, and bacteruria, and she was given a dose of IV ceftriaxone. She has a history of ESBL E coli UTI in the past. Urine toxicology positive for benzodiazepines, which she is prescribed, and fentanyl, which she is not prescribed. She adamantly denies any opioid use/abuse. Review of Systems Verdana 4l Review of Systems: Yes all other systems are reviewed and Verdana 4d are negative PMFSH Medical History Femoral distal fracture Fracture of left tibial plateau Frequent falls Hemiparesis of left nondominant side Hyperlipidemia Left hemiparesis Left humeral fracture Multiple sclerosis NSTEMI (non-ST elevated myocardial infarction) Polysubstance abuse Seizure disorder Family History Other Adopted Pertinent family history: adopted; FHx unknown Social History Alcohol intake: never Patient Tobacco Use Status: Current everyday Tobacco user Substance Use Type: Opiates Advance Directives: Yes Advance Directives on File: Yes Advance Directives Date on File: 04/10/20 Current occupational status: retired Meds Allergies Allergy/AdvReac Type Severity Reaction Status Date / Time No Known Allergies Allergy Verified 04/18/20 09:07 Active Medications: Current Medications Acetaminophen (Acetaminophen 325 Mg Tablet) 650 mg PO Q6H PRN PRN Reason: Pain, Mild (Pain Scale 1-3) Aspirin (Aspirin 81 Mg Tab.Chew) 81 mg PO DAILY ANN Atorvastatin Calcium (Atorvastatin Calcium 20 Mg Tablet) 20 mg PO BEDTIME ANN Baclofen (Baclofen 20 Mg Tablet) 20 mg PO QID ANN Baclofen (Baclofen 20 Mg Tablet) 20 mg PO BEDTIME ANN Carisoprodol (Carisoprodol 350 Mg Tablet) 350 mg PO TID PRN PRN Reason: Muscle Spasm Diazepam (Diazepam 5 Mg Tablet) 10 mg PO BID PRN PRN Reason: anxiety/sleep Enoxaparin Sodium (Enoxaparin Sodium 40 Mg/0.4 Ml Syringe) 40 mg SUBCUT Q24H ANN Gabapentin (Gabapentin 400 Mg Capsule) 400 mg PO BID@1200,2100 ANN Meropenem 1 gm/ Sodium (Chloride) 100 mls @ 200 mls/hr IV Q8H ANN Ondansetron HCl (Ondansetron Hcl 4 Mg/2 Ml Vial) 4 mg IVPUSH Q8H PRN PRN Reason: Nausea and Vomiting Pharmacy Consult (Consult Rx Perform Med Rec) 1 each MISCELLANE ONCE PRN PRN Reason: Consult order Sodium Chloride (0.9 % Sodium Chloride Flush 3 Ml Syringe) 3 ml IVFLUSH QSHIFT ANN Zolpidem Tartrate (Zolpidem Tartrate 5 Mg Tablet) 10 mg PO BEDTIME PRN PRN Reason: Insomnia Home Medications Medication Instructions Recorded Confirmed Last Taken Type aspirin 81 mg 81 mg PO DAILY 06/09/21 07/13/21 07/12/21 History chewable tablet baclofen 20 mg 20 mg PO BEDTIME 06/09/21 07/13/21 07/12/21 History tablet baclofen 20 mg 20 mg PO QID 06/09/21 07/13/21 07/13/21 History tablet diazepam 5 mg 10 mg PO BID PRN 06/09/21 07/13/21 07/13/21 History tablet simvastatin 40 mg 40 mg PO BEDTIME 06/09/21 07/13/21 07/12/21 History tablet zolpidem 10 mg 10 mg PO BEDTIME 06/09/21 07/13/21 07/12/21 History tablet PRN carisoprodol 350 350 mg PO TID 06/23/21 07/13/21 07/13/21 History mg tablet (Soma) PRN gabapentin 400 mg 400 mg PO 06/23/21 07/13/21 07/13/21 History tablet BID@1200,2100 Physical Exam Verdana 4l Vital Signs and Narrative: Verdana 4d Verdana 4d Vital Signs: Verdana 4d Verdana 4Bd Last Vital Signs Verdana 4d Statistical Methods Teacher New 4d Statistical Methods Teacher New 4d Temp 98.2 F 07/13/21 12:35 Statistical Methods Teacher New 4d Pulse 93 07/13/21 12:35 Statistical Methods Teacher New 4d Resp 12 07/13/21 12:35 BP 129/73 07/13/21 12:35 Pulse Ox 97 07/13/21 12:35 BMI result Body Mass Index 28.3 Gen: in no acute distress HEENT: sclera anicteric, moist mucus membranes Neck: supple Lungs: clear to auscultation bilaterally Heart: regular rate and rhythm, no murmurs Abd: soft, non-tender, non-distended : no CVAT Ext: no edema Skin: warm/well-perfused Neuro: alert and oriented x3, chronic L hemiparesis Psych: appropriate affect Results Labs CBC and Chem 7: 07/13/21 12:16 07/13/21 12:16 Labs: Laboratory Results - last 24 hr 07/13/21 07/13/21 07/13/21 12:16 12:16 12:16 MCV 89.7 MCH 29.6 MCHC 33.0 RDW 14.1 Plt Count 260 D MPV 9.4 Immature Gran % (Auto) 0.5 H Neut % (Auto) 86.6 H Lymph % (Auto) 5.4 L Parke % (Auto) 6.1 Eos % (Auto) 1.2 Baso % (Auto) 0.2 Lymph # (Auto) 0.5 L Parke # (Auto) 0.6 Eos # (Auto) 0.1 Baso # (Auto) 0.0 Abs Immat Gran (auto) 0.05 H Absolute Neuts (auto) 8.5 H Absolute Nucleated RBC 0.000 Nucleated RBC % (auto) 0.0 Anion Gap 17 Estim Creat Clear Calc 80.2 Estimated GFR > 60 Random Glucose 90 Lactic Acid Calcium 9.7 Total Bilirubin 0.6 AST 18 D ALT 9 Alkaline Phosphatase 78 C-Reactive Protein 7.19 H Total Protein 7.3 Albumin 4.2 Urine Color Urine Appearance Urine pH Ur Specific Arrey Urine Protein Urine Glucose (UA) Urine Ketones Urine Blood Urine Nitrite Ur Leukocyte Esterase Urine RBC Urine WBC Ur Squamous Epith Cells Urine Bacteria Urine Mucus Salicylates < 5.0 L Urine Opiates Screen Urine Fentanyl Screen Acetaminophen 2 Ur Barbiturates Screen Ur Phencyclidine Scrn Ur Amphetamines Screen U Benzodiazepines Scrn Urine Cocaine Screen U Marijuana (THC) Screen Ethyl Alcohol COVID-19 (ALESSANDRA) Negative COVID-19 Clin Com See Note 07/13/21 07/13/21 07/13/21 12:16 12:24 12:24 MCV MCH MCHC RDW Plt Count MPV Immature Gran % (Auto) Neut % (Auto) Lymph % (Auto) Parke % (Auto) Eos % (Auto) Baso % (Auto) Lymph # (Auto) Parke # (Auto) Eos # (Auto) Baso # (Auto) Abs Immat Gran (auto) Absolute Neuts (auto) Absolute Nucleated RBC Nucleated RBC % (auto) Anion Gap Estim Creat Clear Calc Estimated GFR Random Glucose Lactic Acid Calcium Total Bilirubin AST ALT Alkaline Phosphatase C-Reactive Protein Total Protein Albumin Urine Color YELLOW Urine Appearance CLOUDY Urine pH 5.5 Ur Specific Arrey 1.025 Urine Protein NEG Urine Glucose (UA) NEG Urine Ketones 5 Urine Blood TRACE Urine Nitrite POS H Ur Leukocyte Esterase 3+ H Urine RBC 0-2 Urine WBC TNTC H Ur Squamous Epith Cells TRACE Urine Bacteria 2+ Urine Mucus TRACE Salicylates Urine Opiates Screen Not Detected Urine Fentanyl Screen POSITIVE H Acetaminophen Ur Barbiturates Screen Not Detected Ur Phencyclidine Scrn Not Detected Ur Amphetamines Screen Not Detected U Benzodiazepines Scrn POSITIVE H Urine Cocaine Screen Not Detected U Marijuana (THC) Screen Not Detected Ethyl Alcohol < 10 COVID-19 (ALESSANDRA) COVID-19 Clin Com 07/13/21 14:44 MCV MCH MCHC RDW Plt Count MPV Immature Gran % (Auto) Neut % (Auto) Lymph % (Auto) Parke % (Auto) Eos % (Auto) Baso % (Auto) Lymph # (Auto) Parke # (Auto) Eos # (Auto) Baso # (Auto) Abs Immat Gran (auto) Absolute Neuts (auto) Absolute Nucleated RBC Nucleated RBC % (auto) Anion Gap Estim Creat Clear Calc Estimated GFR Random Glucose Lactic Acid 1.1 Calcium Total Bilirubin AST ALT Alkaline Phosphatase C-Reactive Protein Total Protein Albumin Urine Color Urine Appearance Urine pH Ur Specific Arrey Urine Protein Urine Glucose (UA) Urine Ketones Urine Blood Urine Nitrite Ur Leukocyte Esterase Urine RBC Urine WBC Ur Squamous Epith Cells Urine Bacteria Urine Mucus Salicylates Urine Opiates Screen Urine Fentanyl Screen Acetaminophen Ur Barbiturates Screen Ur Phencyclidine Scrn Ur Amphetamines Screen U Benzodiazepines Scrn Urine Cocaine Screen U Marijuana (THC) Screen Ethyl Alcohol COVID-19 (ALESSANDRA) COVID-19 Clin Com ITS Impressions Chest X-Ray 07/13/21 11:57 IMPRESSION: Platelike atelectasis left lung base. Cervical Spine CT 07/13/21 12:50 IMPRESSION: No acute intracranial process seen. Degenerative disc changes with moderate posterior spondylosis C5-C6 and the general disc changes with mild posterior spondylosis C6-C7 disc levels. No visible acute fracture, dislocation or lytic process seen. There is bilateral C3-C4 and C4-C5 facet joint arthropathy and hypertrophy. Unremarkable CT lumbar spine exam. Lumbar Spine CT 07/13/21 12:51 IMPRESSION: No acute intracranial process seen. Degenerative disc changes with moderate posterior spondylosis C5-C6 and the general disc changes with mild posterior spondylosis C6-C7 disc levels. No visible acute fracture, dislocation or lytic process seen. There is bilateral C3-C4 and C4-C5 facet joint arthropathy and hypertrophy. Unremarkable CT lumbar spine exam. Head CT 07/13/21 12:52 IMPRESSION: No acute intracranial process seen. Degenerative disc changes with moderate posterior spondylosis C5-C6 and the general disc changes with mild posterior spondylosis C6-C7 disc levels. No visible acute fracture, dislocation or lytic process seen. There is bilateral C3-C4 and C4-C5 facet joint arthropathy and hypertrophy. Unremarkable CT lumbar spine exam. Thoracic Spine CT 07/13/21 12:52 IMPRESSION: No acute intracranial process seen. Degenerative disc changes with moderate posterior spondylosis C5-C6 and the general disc changes with mild posterior spondylosis C6-C7 disc levels. No visible acute fracture, dislocation or lytic process seen. There is bilateral C3-C4 and C4-C5 facet joint arthropathy and hypertrophy. Unremarkable CT lumbar spine exam. Chest CT 07/13/21 13:55 IMPRESSION: 1. Bibasilar linear airspace disease including linear airspace disease at lingular segment of the left upper lobe and medial segment of the right middle lobe and pleural parenchymal thickening involving anterior inferior part of both major fissures, likely represent pleural parenchymal scar and/or atelectasis and less likely to be infiltrate. 2. Nonspecific mural thickening of the left lateral and anterior wall of the proximal to mid trachea, not optimally characterized. Direct visualization may be considered for further practice. Fleischner guidelines were followed. Imaging Radiologist's Impressions: Impressions Chest X-Ray 07/13/21 11:57 IMPRESSION: Platelike atelectasis left lung base. Cervical Spine CT 07/13/21 12:50 IMPRESSION: No acute intracranial process seen. Degenerative disc changes with moderate posterior spondylosis C5-C6 and the general disc changes with mild posterior spondylosis C6-C7 disc levels. No visible acute fracture, dislocation or lytic process seen. There is bilateral C3-C4 and C4-C5 facet joint arthropathy and hypertrophy. Unremarkable CT lumbar spine exam. Lumbar Spine CT 07/13/21 12:51 IMPRESSION: No acute intracranial process seen. Degenerative disc changes with moderate posterior spondylosis C5-C6 and the general disc changes with mild posterior spondylosis C6-C7 disc levels. No visible acute fracture, dislocation or lytic process seen. There is bilateral C3-C4 and C4-C5 facet joint arthropathy and hypertrophy. Unremarkable CT lumbar spine exam. Head CT 07/13/21 12:52 IMPRESSION: No acute intracranial process seen. Degenerative disc changes with moderate posterior spondylosis C5-C6 and the general disc changes with mild posterior spondylosis C6-C7 disc levels. No visible acute fracture, dislocation or lytic process seen. There is bilateral C3-C4 and C4-C5 facet joint arthropathy and hypertrophy. Unremarkable CT lumbar spine exam. Thoracic Spine CT 07/13/21 12:52 IMPRESSION: No acute intracranial process seen. Degenerative disc changes with moderate posterior spondylosis C5-C6 and the general disc changes with mild posterior spondylosis C6-C7 disc levels. No visible acute fracture, dislocation or lytic process seen. There is bilateral C3-C4 and C4-C5 facet joint arthropathy and hypertrophy. Unremarkable CT lumbar spine exam. Chest CT 07/13/21 13:55 IMPRESSION: 1. Bibasilar linear airspace disease including linear airspace disease at lingular segment of the left upper lobe and medial segment of the right middle lobe and pleural parenchymal thickening involving anterior inferior part of both major fissures, likely represent pleural parenchymal scar and/or atelectasis and less likely to be infiltrate. 2. Nonspecific mural thickening of the left lateral and anterior wall of the proximal to mid trachea, not optimally characterized. Direct visualization may be considered for further practice. Fleischner guidelines were followed. Assessment and Plan (1) UTI (urinary tract infection): Status: Acute (2) Acute urinary retention: Status: Acute Plan 60yo F with MS, wheelchair-bound, hx ESBL UTIs, presenting with weakness/urinary retention # UTI - admit to M/S, consult ID, give meropenem given hx of ESBL, follow UCx/BCx, renal US # urinary retention - Marshall, Urology consult # HLD - statin # MS - continue baclofen # chronic pain - continue gabapentin, prn carisoprodol # insomnia - prn zolpidem # anxiety - prn diazepam # tobacco abuse - cessation counseling - declines NRT # inadequate self-care - CM consult # VTE ppx - LMWH # code - full Quality Stroke Does the patient have a stroke diagnosis?: No VTE Prior VTE?: No VTE Risk Level:: Medical - moderate - high VTE Device Contraindication: N/A - Device Ordered VTE Drug Contraindication: N/A - Med Ordered
[2021-07-13 16:46] VITALS: BP 130/77; PULSE 94; O2SAT 96
[2021-07-13] MEDS: Baclofen 20 MG TABLET PO ×3 (16:46→21:38)
[2021-07-13] MEDS: Enoxaparin Sodium 40 MG/0.4 ML SYRINGE SUBCUT (16:47)
[2021-07-13] MEDS: 0.9 % Sodium Chloride Flush 3 ML SYRINGE IVFLUSH (16:47)
[2021-07-13 21:36] VITALS: BP 138/80; PULSE 94; RESP 22; O2SAT 92
[2021-07-13] MEDS: Atorvastatin Calcium 20 MG TABLET PO (21:38)
[2021-07-13] MEDS: Gabapentin 400 MG CAPSULE PO (21:38)
[2021-07-13] MEDS: Zolpidem Tartrate 5 MG TABLET 10 MG PO (22:07)
[2021-07-13 23:57] VITALS: BP 115/64; PULSE 94; RESP 19; TEMP 37; O2SAT 95
--- NOTE | 2021-07-14 00:10 | PC.NURSE ---
Pt asleep on stretcher in NAD in between care. Pt aaox4, awoken during VS, found to be 91-92% on RA, placed on 2L NC. Pt VSS. Pt denies pain/discomfort. Pt medicated per MAR. Pt stretcher in low locked position, rails raised, call silverio remains within reach.
[2021-07-14] MEDS: diazePAM 5 MG TABLET 10 MG PO (00:50)
[2021-07-14 06:01] VITALS: BP 157/79; PULSE 90; RESP 17; TEMP 36.8; O2SAT 96
--- NOTE | 2021-07-14 06:12 | PC.NURSE ---
Pt resting on stretcher in NAD, breathing with ease on NC. Pt reports weakness in R leg which she states is my worsening MS. Pt's sensation remain intact. Pt repositioned on stretcher in position of comfort. Stretcher in lowest locked position, rails raised, call silverio within reach.
[2021-07-14 06:47] LABS: Hematocrit 46.1 % (37.0-47.0); Mean Corpuscular HGB Conc 32.5 g/dl (31.0-35.0); Mean Corpuscular Hemoglobin 29.5 pg (27.0-33.0); Mean Corpuscular Volume 90.7 fL (80.0-98.0); Mean Platelet Volume 9.5 fL (9.4-12.3); Platelet Count 241 X10*3/uL (160-400); Red Blood Count 5.08 X10*6/uL (4.20-5.50); Red Cell Distribution Width 14.3 % (11.0-16.0); White Blood Count 5.5 X10*3/uL (4.8-10.8)
[2021-07-14 07:14] LABS: Anion Gap 15 (12-20); Blood Urea Nitrogen 13 mg/dL (9-16); Calcium 9.4 mg/dL (8.4-10.2); Carbon Dioxide 27 mmol/L (22-29); Chloride 103 mmol/L (96-108); Estimated Glomerular Filt Rate > 60; Glucose Random 101 mg/dL (60-115); Potassium 3.9 mmol/L (3.3-5.1); Sodium 139 mmol/L (135-145)
--- NOTE | 2021-07-14 07:34 | PC.NURSE ---
Pt is alert and oriented, set up for breakfast this morning and ate 100%. Marshall patent with yellow urine in drainage bag. Repositioned on right side. Able to make needs known
[2021-07-14] MEDS: Aspirin 81 MG TAB.CHEW PO (07:58)
[2021-07-14] MEDS: Baclofen 20 MG TABLET PO ×5 (07:59→20:41)
[2021-07-14] MEDS: 0.9 % Sodium Chloride Flush 3 ML SYRINGE IVFLUSH ×2 (08:03→17:00)
--- NOTE | 2021-07-14 09:27 | P.CDIC_ITS ---
CDI Concurrent Query Documentation Clarification: PHYSICIAN'S DOCUMENTATION REQUEST Date of Query: 07/14/2128 Patient Name: Shabana Valenzuela Admit Date: 07/13/21 Dear Doctor, A review of the medical record indicates additional documentation may be needed. Please review below and update the documentation accordingly. Verdana 4Bd Risk Factors/Clinical Indicators/Treatments Verdana 4d ED: 07/13 - Nutritional appearance: malnourished lethargic, weakness, fatigued, poor hygiene, wheelchair, failure to thrive. ASPEN Criteria* Acute Illness Chronic Illness Verdana 3Bd C Non-Severe Verdana 3Bd Verdana 3Bd N Verdana 3Bd linical Verdana 2d ( Severe Verdan on-Severe Adwoa Severe Verdan Characteristic 2 or more a 2d (2 or erwin 2d (2 or a 2d (2 or criteria more criteria more criteria more criteria present) present) present) present) Verdana 3Bd E Verdana 3d <7 <=50% for >=5 <75% for >=1 <=75% for >=1 nergy Intake 5% for >7 days days month month Verdana 3Bd W Verdana 3d eight Loss Verdana 3Bd Verdana 3d 1 >2% N/A N/A 1 week ? 2% Verdana 3Bd Verdana 3d 5 >5% 5% >5% 1 month % Verdana 3Bd Verdana 3d 7 >7.5% 7.5% >7.5% 3 months .5 % Verdana 3Bd Verdana 3d N N/A 10% >10% 6 months /A Verdana 3Bd Verdana 3d N N/A 20% >20% 1 year /A Verdana 3Bd B Verdana 3d M Moderate Mild Severe evin Fat ild Verdana 3Bd M Verdana 3d M Moderate Mild Severe uscle Mass ild Verdana 3Bd F Verdana 3d M Moderate to Mild Severe luid ild Severe Accumulation Verdana 3Bd R Verdana 3d N Measurably N/A Measurably educed Residence Counselor /A Reduced Reduced Strength *[facility] Hospitalist, 2017 If possible, please provide in your progress notes, additional specificity regarding the severity of the malnutrition using the above information: Treating, rule out, Resolved, POA etc. * Mild * Moderate * Severe * Other * Unable to determine Use of terms such as suspected, likely, concern for, or probable (associated with a specific diagnosis that is being evaluated, monitored, or treated as if it exists) are acceptable and can be coded in the inpatient setting, when documented at the time of discharge. Thank you, Sherrill Mayfield [facility], CDIS Extension: [phone] Please use your independent medical judgment in providing your response. THIS QUERY IS PART OF THE PERMANENT MEDICAL RECORD Provider Response: Mild Protein-Calorie Malnutrition
--- NOTE | 2021-07-14 09:27 | MHC.CDI.CONC ---
CDI Concurrent Query Documentation Clarification: PHYSICIAN'S DOCUMENTATION REQUEST Date of Query: 07/14/2128 Patient Name: Shabana Valenzuela Admit Date: 07/13/21 Dear Doctor, A review of the medical record indicates additional documentation may be needed. Please review below and update the documentation accordingly. Risk Factors/Clinical Indicators/Treatments ED: 07/13 - Nutritional appearance: malnourished lethargic, weakness, fatigued, poor hygiene, wheelchair, failure to thrive. ASPEN Criteria* Acute Illness Chronic Illness Clinical Characteristic Non-Severe (2 or more criteria present) Severe (2 or more criteria present) Non-Severe (2 or more criteria present) Severe (2 or more criteria present) Energy Intake <75% for >7 days <=50% for >=5 days <75% for >=1 month <=75% for >=1 month Weight Loss 1 week 1 ? 2% >2% N/A N/A 1 month 5% >5% 5% >5% 3 months 7.5 % >7.5% 7.5% >7.5% 6 months N/A N/A 10% >10% 1 year N/A N/A 20% >20% Body Fat Mild Moderate Mild Severe Muscle Mass Mild Moderate Mild Severe Fluid Accumulation Mild Moderate to Severe Mild Severe Reduced It Network Architect Strength N/A Measurably Reduced N/A Measurably Reduced *[facility] Hospitalist, 2017 If possible, please provide in your progress notes, additional specificity regarding the severity of the malnutrition using the above information: Treating, rule out, Resolved, POA etc. Mild Moderate Severe Other Unable to determine Use of terms such as suspected, likely, concern for, or probable (associated with a specific diagnosis that is being evaluated, monitored, or treated as if it exists) are acceptable and can be coded in the inpatient setting, when documented at the time of discharge. Thank you, Sherrill Mayfield [facility], CDIS Extension: [phone] Please use your independent medical judgment in providing your response. THIS QUERY IS PART OF THE PERMANENT MEDICAL RECORD Provider Response: Mild Protein-Calorie Malnutrition
[2021-07-14] MEDS: Acetaminophen 325 MG TABLET 650 MG PO (09:39)
--- NOTE | 2021-07-14 10:03 | P.PNIM_ITS ---
Subjective Subjective Date of Service: 07/14/21 Interval History: Ongoing back pain Marshall placed Pt on Tecfidera as DMARD, last saw Dr Valadez 02/19/21 in clinic Pt's is disabled from multiple CVAs. 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 Review of Systems Review of Systems: Yes all other systems are reviewed and are negative Physical Exam Verdana 4l Vital Signs: Verdana 4d Verdana 4d Vital Signs: Verdana 4d Verdana 4d Last Vital Signs Truck Driver New 4d Truck Driver New 4d Temp 98.3 F 07/14/21 06:01 Truck Driver New 4d Pulse 90 07/14/21 06:01 Truck Driver New 4d Resp 17 07/14/21 06:01 BP 157/79 H 07/14/21 06:01 Pulse Ox 96 07/14/21 06:01 BMI result Body Mass Index 28.3 Gen: in no acute distress HEENT: sclera anicteric, moist mucus membranes Neck: supple Lungs: clear to auscultation bilaterally Heart: regular rate and rhythm, no murmurs Abd: soft, non-tender, non-distended : no CVAT Ext: no edema Skin: warm/well-perfused Neuro: alert and oriented x3, chronic L hemiparesis Psych: appropriate affec Objective Data Active Medications Acetaminophen (Acetaminophen 325 Mg Tablet) 650 mg PO Q6H PRN PRN Reason: Pain, Mild (Pain Scale 1-3) Last Admin: 07/14/21 09:39 Dose: 650 mg Documented by: GEORGINA Aspirin (Aspirin 81 Mg Tab.Chew) 81 mg PO DAILY [facility] Last Admin: 07/14/21 07:58 Dose: 81 mg Documented by: VAHID Atorvastatin Calcium (Atorvastatin Calcium 20 Mg Tablet) 20 mg PO BEDTIME [facility] Last Admin: 07/13/21 21:38 Dose: 20 mg Documented by: ETTA Baclofen (Baclofen 20 Mg Tablet) 20 mg PO QID [facility] Last Admin: 07/14/21 07:59 Dose: 20 mg Documented by: VAHID Baclofen (Baclofen 20 Mg Tablet) 20 mg PO BEDTIME [facility] Last Admin: 07/13/21 21:38 Dose: 20 mg Documented by: ETTA Carisoprodol (Carisoprodol 350 Mg Tablet) 350 mg PO TID PRN PRN Reason: Muscle Spasm Diazepam (Diazepam 5 Mg Tablet) 10 mg PO BID PRN PRN Reason: anxiety/sleep Last Admin: 07/14/21 00:50 Dose: 10 mg Documented by: MAL Enoxaparin Sodium (Enoxaparin Sodium 40 Mg/0.4 Ml Syringe) 40 mg SUBCUT Q24H [facility] Last Admin: 07/13/21 16:47 Dose: 40 mg Documented by: ETTA Gabapentin (Gabapentin 400 Mg Capsule) 400 mg PO BID@1200,2100 [facility] Last Admin: 07/13/21 21:38 Dose: 400 mg Documented by: ETTA Meropenem 1 gm/ Sodium (Chloride) 100 mls @ 200 mls/hr IV Q8H [facility] Last Infusion: 07/14/21 09:20 Dose: 0 mls/hr Documented by: VAHID Non-Formulary Medication (Dimethyl Fumarate [Tecfidera]) 240 mg PO BID [facility] Ondansetron HCl (Ondansetron Hcl 4 Mg/2 Ml Vial) 4 mg IVPUSH Q8H PRN PRN Reason: Nausea and Vomiting Pharmacy Consult (Consult Rx Perform Med Rec) 1 each MISCELLANE ONCE PRN PRN Reason: Consult order Sodium Chloride (0.9 % Sodium Chloride Flush 3 Ml Syringe) 3 ml IVFLUSH QSHIFT [facility] Last Admin: 07/14/21 08:03 Dose: 3 ml Documented by: VAHID Zolpidem Tartrate (Zolpidem Tartrate 5 Mg Tablet) 10 mg PO BEDTIME PRN PRN Reason: Insomnia Last Admin: 07/13/21 22:07 Dose: 10 mg Documented by: ETTA Labs CBC & Chem 7: 07/14/21 06:35 07/14/21 06:35 Labs: Laboratory Results - last 24 hr 07/13/21 07/13/21 07/13/21 12:16 12:16 12:16 MCV 89.7 MCH 29.6 MCHC 33.0 RDW 14.1 Plt Count 260 D MPV 9.4 Immature Gran % (Auto) 0.5 H Neut % (Auto) 86.6 H Lymph % (Auto) 5.4 L [place] % (Auto) 6.1 Eos % (Auto) 1.2 Baso % (Auto) 0.2 Lymph # (Auto) 0.5 L [place] # (Auto) 0.6 Eos # (Auto) 0.1 Baso # (Auto) 0.0 Abs Immat Gran (auto) 0.05 H Absolute Neuts (auto) 8.5 H Absolute Nucleated RBC 0.000 Nucleated RBC % (auto) 0.0 Anion Gap 17 Estim Creat Clear Calc 80.2 Estimated GFR > 60 Random Glucose 90 Lactic Acid Calcium 9.7 Total Bilirubin 0.6 AST 18 D ALT 9 Alkaline Phosphatase 78 C-Reactive Protein 7.19 H Total Protein 7.3 Albumin 4.2 Urine Color Urine Appearance Urine pH Ur Specific [place] Urine Protein Urine Glucose (UA) Urine Ketones Urine Blood Urine Nitrite Ur Leukocyte Esterase Urine RBC Urine WBC Ur Squamous Epith Cells Urine Bacteria Urine Mucus Salicylates < 5.0 L Urine Opiates Screen Urine Fentanyl Screen Acetaminophen 2 Ur Barbiturates Screen Ur Phencyclidine Scrn Ur Amphetamines Screen U Benzodiazepines Scrn Urine Cocaine Screen U Marijuana (THC) Screen Ethyl Alcohol COVID-19 (ALESSANDRA) Negative COVID-19 T-System Com See Note 07/13/21 07/13/21 07/13/21 12:16 12:24 12:24 MCV MCH MCHC RDW Plt Count MPV Immature Gran % (Auto) Neut % (Auto) Lymph % (Auto) [place] % (Auto) Eos % (Auto) Baso % (Auto) Lymph # (Auto) [place] # (Auto) Eos # (Auto) Baso # (Auto) Abs Immat Gran (auto) Absolute Neuts (auto) Absolute Nucleated RBC Nucleated RBC % (auto) Anion Gap Estim Creat Clear Calc Estimated GFR Random Glucose Lactic Acid Calcium Total Bilirubin AST ALT Alkaline Phosphatase C-Reactive Protein Total Protein Albumin Urine Color YELLOW Urine Appearance CLOUDY Urine pH 5.5 Ur Specific [place] 1.025 Urine Protein NEG Urine Glucose (UA) NEG Urine Ketones 5 Urine Blood TRACE Urine Nitrite POS H Ur Leukocyte Esterase 3+ H Urine RBC 0-2 Urine WBC TNTC H Ur Squamous Epith Cells TRACE Urine Bacteria 2+ Urine Mucus TRACE Salicylates Urine Opiates Screen Not Detected Urine Fentanyl Screen POSITIVE H Acetaminophen Ur Barbiturates Screen Not Detected Ur Phencyclidine Scrn Not Detected Ur Amphetamines Screen Not Detected U Benzodiazepines Scrn POSITIVE H Urine Cocaine Screen Not Detected U Marijuana (THC) Screen Not Detected Ethyl Alcohol < 10 COVID-19 (ALESSANDRA) COVID-[employer] Com 07/13/21 07/14/21 07/14/21 14:44 06:35 06:35 MCV 90.7 MCH 29.5 MCHC 32.5 RDW 14.3 Plt Count 241 MPV 9.5 Immature Gran % (Auto) Neut % (Auto) Lymph % (Auto) [place] % (Auto) Eos % (Auto) Baso % (Auto) Lymph # (Auto) [place] # (Auto) Eos # (Auto) Baso # (Auto) Abs Immat Gran (auto) Absolute Neuts (auto) Absolute Nucleated RBC 0.000 Nucleated RBC % (auto) 0.0 Anion Gap 15 Estim Creat Clear Calc 78.0 Estimated GFR > 60 Random Glucose 101 Lactic Acid 1.1 Calcium 9.4 Total Bilirubin AST ALT Alkaline Phosphatase C-Reactive Protein Total Protein Albumin Urine Color Urine Appearance Urine pH Ur Specific [place] Urine Protein Urine Glucose (UA) Urine Ketones Urine Blood Urine Nitrite Ur Leukocyte Esterase Urine RBC Urine WBC Ur Squamous Epith Cells Urine Bacteria Urine Mucus Salicylates Urine Opiates Screen Urine Fentanyl Screen Acetaminophen Ur Barbiturates Screen Ur Phencyclidine Scrn Ur Amphetamines Screen U Benzodiazepines Scrn Urine Cocaine Screen U Marijuana (THC) Screen Ethyl Alcohol COVID-19 (ALESSANDRA) COVID-19 Clin Com Microbiology Microbiology Results: Microbiology 07/13/21 14:44 Urine Culture - Preliminary Urine clean catch - Clean Catch Midstream Gram negative frantz Assessment and Plan (1) UTI (urinary tract infection): Status: Acute Plan hsopital d#2 60yo F with relapsing-remitting MS on Tecfidera, wheelchair-bound, hx ESBL UTIs, presenting with weakness/urinary retention # UTI - meropenem d#2 given hx of ESBL, follow UCx/BCx, ID consult pending # urinary retention - Marshall placed, Urology consult # HLD - statin # MS - continue baclofen - continue Tecfidera- needs to bring in from home # chronic pain - continue gabapentin, prn carisoprodol # insomnia - prn zolpidem # anxiety - prn diazepam # tobacco abuse - cessation counseling - declines NRT # mild protein/calorie malnutrition - supplements # inadequate self-care - CM consult # VTE ppx - LMWH Quality Stroke Does the patient have a stroke diagnosis?: No VTE Prior VTE?: No VTE Risk Level:: Medical - moderate - high VTE Device Contraindication: N/A - Device Ordered VTE Drug Contraindication: N/A - Med Ordered
--- NOTE | 2021-07-14 11:26 | P.CNUR_ITS ---
History of Present Illness Consult details Consult date: 07/14/21 Narrative: Shabana is a pleasant 58-year-old female Past medical history significant for multiple sclerosis progressive with left CVA and weakness Presents to hospital with urinary tract infection and urinary retention 1200 cc found at time of catheter placement She has not seen a urologist previously And did not realize that MS does lead to progressive urinary retention Discussion today regarding possible use of CIC At this point during hospital course can stay with catheter and when admitted can have CIC teaching from nursing Review of Systems Verdana 4l Constitutional: Verdana 4d Constitutional: Verdana 4d Verdana 4d Reports as per HPI and Reports no additional constitutional complaints Verdana 4l Cardiovascular: Verdana 4d Cardiovascular: Verdana 4d Verdana 4d Reports as per HPI and Reports no additional cardiovascular complaints Verdana 4l Respiratory: Verdana 4d Verdana 4d Respiratory: Verdana 4d Reports as per HPI and Reports no additional respiratory complaints Verdana 4l Gastrointestinal: Verdana 4d Gastrointestinal: Verdana 4d Verdana 4d Reports as per HPI and Reports no additional gastrointestinal complaints Verdana 4l Genitourinary: Verdana 4d Verdana 4d Genitourinary: Verdana 4d Reports as per HPI Verdana 4l Musculoskeletal: Verdana 4d Musculoskeletal: Verdana 4d Verdana 4d Reports no additional musculoskeletal complaints and Reports as per HPI Verdana 4l Neurologic: Verdana 4d Reports system reviewed and no additional complaints, except as documented and Reports as per HPI REPLACED BY [facility] Past Medical History Medical History (Updated 07/14/21 @ 11:29 by Colby Goetz MD) Femoral distal fracture Fracture of left tibial plateau Frequent falls Hemiparesis of left nondominant side Hyperlipidemia Left hemiparesis Left humeral fracture Multiple sclerosis NSTEMI (non-ST elevated myocardial infarction) Polysubstance abuse Seizure disorder Family History Family History Other Adopted Social History Social History Alcohol intake: never Patient Tobacco Use Status: Current everyday Tobacco user Use of substances other than those prescribed or required for medical reasons: No Substance Use Type: Opiates Advance Directives: Yes Advance Directives on File: Yes Advance Directives Date on File: 04/10/20 Current occupational status: retired [employer] Allergies Allergy/AdvReac Type Severity Reaction Status Date / Time No Known Allergies Allergy Verified 04/18/20 09:07 Active Medications: Current Medications Acetaminophen (Acetaminophen 325 Mg Tablet) 650 mg PO Q6H PRN PRN Reason: Pain, Mild (Pain Scale 1-3) Last Admin: 07/14/21 09:39 Dose: 650 mg Documented by: Aspirin (Aspirin 81 Mg Tab.Chew) 81 mg PO DAILY [facility] Last Admin: 07/14/21 07:58 Dose: 81 mg Documented by: Atorvastatin Calcium (Atorvastatin Calcium 20 Mg Tablet) 20 mg PO BEDTIME [facility] Last Admin: 07/13/21 21:38 Dose: 20 mg Documented by: Baclofen (Baclofen 20 Mg Tablet) 20 mg PO QID [facility] Last Admin: 07/14/21 07:59 Dose: 20 mg Documented by: Baclofen (Baclofen 20 Mg Tablet) 20 mg PO BEDTIME [facility] Last Admin: 07/13/21 21:38 Dose: 20 mg Documented by: Carisoprodol (Carisoprodol 350 Mg Tablet) 350 mg PO TID PRN PRN Reason: Muscle Spasm Diazepam (Diazepam 5 Mg Tablet) 10 mg PO BID PRN PRN Reason: anxiety/sleep Last Admin: 07/14/21 00:50 Dose: 10 mg Documented by: Enoxaparin Sodium (Enoxaparin Sodium 40 Mg/0.4 Ml Syringe) 40 mg SUBCUT Q24H [facility] Last Admin: 07/13/21 16:47 Dose: 40 mg Documented by: Gabapentin (Gabapentin 400 Mg Capsule) 400 mg PO BID@1200,2100 [facility] Last Admin: 07/13/21 21:38 Dose: 400 mg Documented by: Meropenem 1 gm/ Sodium (Chloride) 100 mls @ 200 mls/hr IV Q8H [facility] Last Infusion: 07/14/21 09:20 Dose: Infused Documented by: Non-Formulary Medication (Dimethyl Fumarate [Tecfidera]) 240 mg PO BID [facility] Ondansetron HCl (Ondansetron Hcl 4 Mg/2 Ml Vial) 4 mg IVPUSH Q8H PRN PRN Reason: Nausea and Vomiting Pharmacy Consult (Consult Rx Perform Med Rec) 1 each MISCELLANE ONCE PRN PRN Reason: Consult order Sodium Chloride (0.9 % Sodium Chloride Flush 3 Ml Syringe) 3 ml IVFLUSH QSHIFT [facility] Last Admin: 07/14/21 08:03 Dose: 3 ml Documented by: Zolpidem Tartrate (Zolpidem Tartrate 5 Mg Tablet) 10 mg PO BEDTIME PRN PRN Reason: Insomnia Last Admin: 07/13/21 22:07 Dose: 10 mg Documented by: Home Medications Medication Instructions Recorded Confirmed Last Taken Type aspirin 81 mg 81 mg PO DAILY 06/09/21 07/13/21 07/12/21 History chewable tablet baclofen 20 mg 20 mg PO BEDTIME 06/09/21 07/13/21 07/12/21 History tablet baclofen 20 mg 20 mg PO QID 06/09/21 07/13/21 07/13/21 History tablet diazepam 5 mg 10 mg PO BID PRN 06/09/21 07/13/21 07/13/21 History tablet simvastatin 40 mg 40 mg PO BEDTIME 06/09/21 07/13/21 07/12/21 History tablet zolpidem 10 mg 10 mg PO BEDTIME 06/09/21 07/13/21 07/12/21 History tablet PRN carisoprodol 350 350 mg PO TID 06/23/21 07/13/21 07/13/21 History mg tablet (Soma) PRN gabapentin 400 mg 400 mg PO 06/23/21 07/13/21 07/13/21 History tablet BID@1200,2100 dimethyl fumarate 240 mg PO BID 07/14/21 07/14/21 Unknown History 240 mg capsule,delayed release (Tecfidera) Physical Exam Verdana 4l Vital Signs: Verdana 4d Verdana 4d Vital Signs: Verdana 4d Verdana 4Bd Last Vital Signs Verdana 4d Interventional Pain Physician New 4d Interventional Pain Physician New 4d Temp 98.3 F 07/14/21 06:01 Interventional Pain Physician New 4d Pulse 90 07/14/21 06:01 Interventional Pain Physician New 4d Resp 17 07/14/21 06:01 BP 157/79 H 07/14/21 06:01 Pulse Ox 96 07/14/21 06:01 BMI result Body Mass Index 28.3 Const: General: cooperative, healthy appearing, comfortable and no acute distress Orientation/consciousness: patient oriented x3 HENMT: Face and sinus: Yes normal facial exam Mouth: moist mucous membranes Neck: Neck: Yes normal visual inspection, Yes full ROM and Yes trachea midline Chest: Chest palpation & inspection: normal inspection of the chest Resp: Effort & Inspection: normal respiratory effort, able to speak in complete sentences and no respiratory distress GI: Inspection: Yes normal to inspection Back/Spine/Pelvis: Cervical Spine: normal cervical lordosis Thoracic/Lumbar Spine: thoracic and lumbar spine normal to inspection Skin: General skin exam: no rashes or lesions noted Neuro: General: patient oriented x3, tone normal and moves all extremities Extrem: General: Yes normal to inspection and Yes capillary refill normal Results Labs Result diagrams: 07/14/21 06:35 07/14/21 06:35 Labs: Abnormal lab results 07/13/21 07/13/21 07/13/21 Range/Units 12:16 12:16 12:24 Immature Gran % (Auto) 0.5 H (0.0-0.4) % Neut % (Auto) 86.6 H (45-73) % Lymph % (Auto) 5.4 L (20-40) % Lymph # (Auto) 0.5 L (1.2-4.9) X10*3/uL Abs Immat Gran (auto) 0.05 H (0.00-0.03) X10*3/uL Absolute Neuts (auto) 8.5 H (2.0-8.3) x10*3/uL C-Reactive Protein 7.19 H (< or = 0.50) mg/dL Urine Nitrite (NEG) Ur Leukocyte Esterase (NEG) Urine WBC (0-4) /HPF Salicylates < 5.0 L (15-30) mg/dL Urine Fentanyl Screen POSITIVE H (Not Detect) U Benzodiazepines Scrn POSITIVE H (Not Detect) 07/13/21 Range/Units 12:24 Immature Gran % (Auto) (0.0-0.4) % Neut % (Auto) (45-73) % Lymph % (Auto) (20-40) % Lymph # (Auto) (1.2-4.9) X10*3/uL Abs Immat Gran (auto) (0.00-0.03) X10*3/uL Absolute Neuts (auto) (2.0-8.3) x10*3/uL C-Reactive Protein (< or = 0.50) mg/dL Urine Nitrite POS H (NEG) Ur Leukocyte Esterase 3+ H (NEG) Urine WBC TNTC H (0-4) /HPF Salicylates (15-30) mg/dL Urine Fentanyl Screen (Not Detect) U Benzodiazepines Scrn (Not Detect) Short CBC 07/13/21 07/14/21 Range/Units 12:16 06:35 WBC 9.8 5.5 (4.8-10.8) X10*3/uL Hgb 14.4 15.0 (12.0-16.0) g/dl Hct 43.7 46.1 (37.0-47.0) % Plt Count 260 D 241 (160-400) X10*3/uL BMP 07/13/21 07/14/21 12:16 06:35 Sodium 139 139 Potassium 5.0 3.9 D Chloride 99 103 Carbon Dioxide 28 27 BUN 15 D 13 Creatinine 0.72 0.74 Calcium 9.7 9.4 Liver Function 07/13/21 Range/Units 12:16 Total Bilirubin 0.6 (0.0-1.0) mg/dL AST 18 D (5-31) U/L ALT 9 (0-31) U/L Alkaline Phosphatase 78 (39-117) U/L Albumin 4.2 (3.5-5.0) g/dL Urine 07/13/21 Range/Units 12:24 Urine Color YELLOW Urine Appearance CLOUDY Urine pH 5.5 (5.0-8.0) Ur Specific [place] 1.025 (1.005-1.025) Urine Protein NEG (NEG-TRACE) MG/DL Urine Glucose (UA) NEG (NEG) MG/DL All other labs normal. Assessment and Plan (1) Hypotonic neurogenic bladder: Status: Acute (2) Multiple sclerosis: Status: Acute Plan will need CIC teaching once admitted to hospital Procedures Date of Service Date of Service: 07/14/21
--- NOTE | 2021-07-14 11:31 | PC.NURSE ---
Pt is A&Ox3, LCA, L sided hemiparesis as per baseline. Pain 8/10 at this time, Tylenol PO given, pt requesting gabapentin, explained not due until 1200 and will give at that time. Marshall in place draining clear yellow urine. Call silverio within reach, will continue to monitor.
[2021-07-14] MEDS: Gabapentin 400 MG CAPSULE PO ×2 (12:10→20:41)
[2021-07-14] MEDS: carisoprodoL 350 MG TABLET PO (12:10)
--- NOTE | 2021-07-14 14:14 | MHC.CM.PN ---
CM ATTEMPTED TO MEET WITH PT WHO WAS SLEEPING. CM STATED PTS NAME SEVERAL TIMES HOWEVER PT DID NOT RESPOND. CM WILL REVISIT
--- NOTE | 2021-07-14 15:26 | MHC.CM.PN ---
Addendum entered by Fabiola Russo 07/14/21 15:37: Correction: Pt has a valid and verified HCP on file from previous visit. Disregard below notation re: HCP Original Note: Met with pt to discuss d/c planning: pt resides with her spouse who has a CVA history and 21 hours of [facility]ILITY [employer] [facility]. Pt states she also has [facility]BILITY [employer]CHIT[employer] MANAGER services 8 hours per week. Pt has a w/c and walker and states she is mostly independent with her care needs. Gently inquired on EMS report of trash/pills on the floor - pt states, I drop things and have trouble picking things up. My MOBILITY ARCHITECT MANAGER usually helps but they have been out sick so the place isn't as tidy as it usually is. Pt states her MOBILITY ARCHITECT MANAGER provide all transportation needs. Pt states she has been COVID vaxed x2, requested assistance with HCP completion. States she had skilled VNA services in the past and is receptive to a new referral - thinks her agency was [facility]? Referral made, HCP completed and in chart with IMM. CM to follow.
--- NOTE | 2021-07-14 16:11 | W.PM.IDCN ---
History of Present Illness Data of Consult Service Date: 07/14/21 Requesting physician: Akhil Yo Primary Care Provider: Pranav Su MD [facility] Reason for consult: weakness ,gram negative urine She has MS and is wheelchair bound She feels weakness She has gram negative rods in urine Review of Systems Review of Systems: Yes all other systems are reviewed and are negative PMFSH Past Medical History Medical History COPD (chronic obstructive pulmonary disease) Diabetes Femoral distal fracture Fracture of left tibial plateau Frequent falls Hemiparesis of left nondominant side Hyperlipidemia Hypertension Left hemiparesis Left humeral fracture Multiple sclerosis Multiple sclerosis NSTEMI (non-ST elevated myocardial infarction) Physical deconditioning Polysubstance abuse Seizure disorder UTI (urinary tract infection) Weakness Family History Family History Other Adopted Family history: reviewed and not pertinent Surgical History Surgical History No pertinent past surgical history Social History Social History Alcohol intake: never Patient Tobacco Use Status: Current everyday Tobacco user Tobacco use type: Cigarette Cigarette Packs Per Day: 0.5 Cigarettes Per Day: 10.0 Substance Use Type: Opiates Advance Directives Date on File: 04/10/20 service: No Current occupational status: retired [employer] Allergies Allergy/AdvReac Type Severity Reaction Status Date / Time No Known Allergies Allergy Verified 04/18/20 09:07 Active Medications: Current Medications Acetaminophen (Acetaminophen 325 Mg Tablet) 650 mg PO Q6H PRN PRN Reason: Pain, Mild (Pain Scale 1-3) Last Admin: 07/14/21 09:39 Dose: 650 mg Documented by: Aspirin (Aspirin 81 Mg Tab.Chew) 81 mg PO DAILY [facility] Last Admin: 07/14/21 07:58 Dose: 81 mg Documented by: Atorvastatin Calcium (Atorvastatin Calcium 20 Mg Tablet) 20 mg PO BEDTIME [facility] Last Admin: 07/13/21 21:38 Dose: 20 mg Documented by: Baclofen (Baclofen 20 Mg Tablet) 20 mg PO QID [facility] Last Admin: 07/14/21 12:10 Dose: 20 mg Documented by: Baclofen (Baclofen 20 Mg Tablet) 20 mg PO BEDTIME [facility] Last Admin: 07/13/21 21:38 Dose: 20 mg Documented by: Carisoprodol (Carisoprodol 350 Mg Tablet) 350 mg PO TID PRN PRN Reason: Muscle Spasm Last Admin: 07/14/21 12:10 Dose: 350 mg Documented by: Diazepam (Diazepam 5 Mg Tablet) 10 mg PO BID PRN PRN Reason: anxiety/sleep Last Admin: 07/14/21 00:50 Dose: 10 mg Documented by: Enoxaparin Sodium (Enoxaparin Sodium 40 Mg/0.4 Ml Syringe) 40 mg SUBCUT Q24H [facility] Last Admin: 07/13/21 16:47 Dose: 40 mg Documented by: Gabapentin (Gabapentin 400 Mg Capsule) 400 mg PO BID@1200,2100 [facility] Last Admin: 07/14/21 12:10 Dose: 400 mg Documented by: Meropenem 1 gm/ Sodium (Chloride) 100 mls @ 200 mls/hr IV Q8H [facility] Last Infusion: 07/14/21 09:20 Dose: Infused Documented by: Non-Formulary Medication (Dimethyl Fumarate [Tecfidera]) 240 mg PO BID [facility] Ondansetron HCl (Ondansetron Hcl 4 Mg/2 Ml Vial) 4 mg IVPUSH Q8H PRN PRN Reason: Nausea and Vomiting Pharmacy Consult (Consult Rx Perform Med Rec) 1 each MISCELLANE ONCE PRN PRN Reason: Consult order Sodium Chloride (0.9 % Sodium Chloride Flush 3 Ml Syringe) 3 ml IVFLUSH QSHIFT [facility] Last Admin: 07/14/21 08:03 Dose: 3 ml Documented by: Zolpidem Tartrate (Zolpidem Tartrate 5 Mg Tablet) 10 mg PO BEDTIME PRN PRN Reason: Insomnia Last Admin: 07/13/21 22:07 Dose: 10 mg Documented by: Home Medications Medication Instructions Recorded Confirmed Last Taken Type aspirin 81 mg chewable tablet 81 mg PO DAILY 06/09/21 09/24/21 07/12/21 History baclofen 20 mg tablet 20 mg PO TID 06/09/21 09/24/21 07/13/21 History baclofen 20 mg tablet 40 mg PO BEDTIME 06/09/21 09/24/21 07/12/21 History diazepam 5 mg tablet 5 mg PO BID PRN 06/09/21 09/24/2107/13/22 History simvastatin 40 mg tablet 40 mg PO BEDTIME 06/09/21 09/24/21 07/12/21 History zolpidem 10 mg tablet 10 mg PO BEDTIME PRN 06/09/21 09/24/21 07/12/21 History carisoprodol 350 mg tablet (Soma) 350 mg PO TID PRN 06/23/21 09/24/21 07/13/21 History dimethyl fumarate 240 mg 240 mg PO BID 07/14/21 09/24/21 Unknown History capsule,delayed release (Tecfidera) cholecalciferol (vitamin D3) 25 25 mcg PO DAILY 09/08/21 09/24/21 Unknown History mcg (1,000 unit) tablet (Vitamin D3) gabapentin 300 mg capsule 300 mg PO BID 09/08/21 09/24/21 Unknown History Physical Exam Vital Signs: Vital Signs: Last Vital Signs Temp 98.3 F 07/14/21 06:01 Pulse 90 07/14/21 06:01 Resp 17 07/14/21 06:01 BP 157/79 H 07/14/21 06:01 Pulse Ox 96 07/14/21 06:01 BMI result Body Mass Index 28.3 Const: General: cooperative HENMT: Ears: hearing grossly normal bilaterally Mouth: Normal oral and palatal mucosa present Resp: Effort & Inspection: normal respiratory effort Cardio: Rate: regular rate Rhythm: regular rhythm GI: Palpation (GI): Soft to palpation and nontender Skin: General skin exam: no rashes or lesions noted Neuro: Other: weakness lower extremities Results Labs CBC & Chem 7: 07/16/21 07:03 07/14/21 06:35 Labs: Short CBC 07/14/21 Range/Units 06:35 WBC 5.5 (4.8-10.8) X10*3/uL Hgb 15.0 (12.0-16.0) g/dl Hct 46.1 (37.0-47.0) % Plt Count 241 (160-400) X10*3/uL BMP 07/14/21 06:35 Sodium 139 Potassium 3.9 D Chloride 103 Carbon Dioxide 27 BUN 13 Creatinine 0.74 Calcium 9.4 Microbiology Microbiology Results: Microbiology 07/13/21 14:44 Urine clean catch - Clean Catch Midstream Urine Culture - Preliminary Gram negative frantz Assessment and Plan (1) Multiple sclerosis: Status: Acute (2) Hypotonic neurogenic bladder: Status: Acute (3) UTI (urinary tract infection): Status: Acute She has neurogenic bladder from MS She is being seen by Urology She gets catheterized once a day per VNA Plan Would give Merem as possible resistant organism Await cultures Urology input
[2021-07-14 16:25] VITALS: BP 110/74; PULSE 84; RESP 16; TEMP 36.6; O2SAT 97
[2021-07-14] MEDS: Enoxaparin Sodium 40 MG/0.4 ML SYRINGE SUBCUT (17:00)
[2021-07-14] MEDS: Atorvastatin Calcium 20 MG TABLET PO (20:41)
[2021-07-14] MEDS: Zolpidem Tartrate 5 MG TABLET 10 MG PO (20:44)
[2021-07-15] MEDS: carisoprodoL 350 MG TABLET PO ×2 (09:23→21:22)
[2021-07-15] MEDS: Aspirin 81 MG TAB.CHEW PO (09:23)
[2021-07-15] MEDS: Baclofen 20 MG TABLET PO ×5 (09:23→21:19)
--- NOTE | 2021-07-15 09:41 | P.PNIM_ITS ---
Subjective Subjective Date of Service: 07/15/21 Interval History: Ongoing back pain No fever Unable to do CIC due to L hemiparesis Review of Systems Review of Systems: Yes all other systems are reviewed and are negative Physical Exam Vital Signs: Vital Signs: Last Vital Signs Temp 97.9 F 07/14/21 16:25 Pulse 84 07/14/21 16:25 Resp 16 07/14/21 16:25 BP 110/74 07/14/21 16:25 Pulse Ox 97 07/14/21 16:25 BMI result Body Mass Index 28.3 Gen: in no acute distress HEENT: sclera anicteric, moist mucus membranes Neck: supple Lungs: clear to auscultation bilaterally Heart: regular rate and rhythm, no murmurs Abd: soft, non-tender, non-distended : no CVAT Ext: no edema Skin: warm/well-perfused Neuro: alert and oriented x3, chronic L hemiparesis Psych: appropriate affect Objective Data Active Medications Acetaminophen (Acetaminophen 325 Mg Tablet) 650 mg PO Q6H PRN PRN Reason: Pain, Mild (Pain Scale 1-3) Last Admin: 07/14/21 09:39 Dose: 650 mg Documented by: GEORGINA Aspirin (Aspirin 81 Mg Tab.Chew) 81 mg PO DAILY [facility] Last Admin: 07/15/21 09:23 Dose: 81 mg Documented by: GEORGINA Atorvastatin Calcium (Atorvastatin Calcium 20 Mg Tablet) 20 mg PO BEDTIME [facility] Last Admin: 07/14/21 20:41 Dose: 20 mg Documented by: MIKAELA Baclofen (Baclofen 20 Mg Tablet) 20 mg PO QID [facility] Last Admin: 07/15/21 09:23 Dose: 20 mg Documented by: GEORGINA Baclofen (Baclofen 20 Mg Tablet) 20 mg PO BEDTIME [facility] Last Admin: 07/14/21 20:41 Dose: 20 mg Documented by: MIKAELA Carisoprodol (Carisoprodol 350 Mg Tablet) 350 mg PO TID PRN PRN Reason: Muscle Spasm Last Admin: 07/15/21 09:23 Dose: 350 mg Documented by: GEORGINA Diazepam (Diazepam 5 Mg Tablet) 10 mg PO BID PRN PRN Reason: anxiety/sleep Last Admin: 07/14/21 00:50 Dose: 10 mg Documented by: MAL Enoxaparin Sodium (Enoxaparin Sodium 40 Mg/0.4 Ml Syringe) 40 mg SUBCUT Q24H [facility] Last Admin: 07/14/21 17:00 Dose: 40 mg Documented by: GEORGINA Gabapentin (Gabapentin 400 Mg Capsule) 400 mg PO BID@1200,2100 [facility] Last Admin: 07/14/21 20:41 Dose: 400 mg Documented by: MIKAELA Meropenem 1 gm/ Sodium (Chloride) 100 mls @ 200 mls/hr IV Q8H [facility] Last Admin: 07/15/21 09:22 Dose: 200 mls/hr Documented by: GEORGINA Non-Formulary Medication (Dimethyl Fumarate [Tecfidera]) 240 mg PO BID [facility] Ondansetron HCl (Ondansetron Hcl 4 Mg/2 Ml Vial) 4 mg IVPUSH Q8H PRN PRN Reason: Nausea and Vomiting Pharmacy Consult (Consult Rx Perform Med Rec) 1 each MISCELLANE ONCE PRN PRN Reason: Consult order Sodium Chloride (0.9 % Sodium Chloride Flush 3 Ml Syringe) 3 ml IVFLUSH QSHIFT [facility] Last Admin: 07/15/21 06:18 Dose: Not Given Documented by: MIKAELA Non-Admin Reason: Patient Asleep Zolpidem Tartrate (Zolpidem Tartrate 5 Mg Tablet) 10 mg PO BEDTIME PRN PRN Reason: Insomnia Last Admin: 07/14/21 20:44 Dose: 10 mg Documented by: MIKAELA Labs CBC & Chem 7: 07/14/21 06:35 07/14/21 06:35 Microbiology Microbiology Results: Microbiology 07/13/21 14:44 Urine Culture - Preliminary Urine clean catch - Clean Catch Midstream Escherichia coli 07/13/21 14:43 Blood Culture - Preliminary Blood - Venous No growth after 24 hours. 07/13/21 14:43 Blood Culture - Preliminary Blood - Venous No growth after 24 hours. Assessment and Plan (1) UTI (urinary tract infection): Status: Acute Plan hsopital d#3 60yo F with relapsing-remitting MS on Tecfidera, wheelchair-bound, hx ESBL UTIs, presenting with weakness/urinary retention # UTI. E cp;o - meropenem d#3 given hx of ESBL, follow UCx/BCx, ID consulted # urinary retention - Marshall placed, Urology consulted. unable to do CIC- will need chronic Marshall # HLD - statin # MS - continue baclofen - continue Tecfidera- needs to bring in from home # chronic pain - continue gabapentin, prn carisoprodol # insomnia - prn zolpidem # anxiety - prn diazepam # tobacco abuse - cessation counseling - declines NRT # mild protein/calorie malnutrition - supplements # inadequate self-care - CM consult # VTE ppx - LMWH Quality Stroke Does the patient have a stroke diagnosis?: No VTE Prior VTE?: No VTE Risk Level:: Medical - moderate - high VTE Device Contraindication: N/A - Device Ordered VTE Drug Contraindication: N/A - Med Ordered
[2021-07-15] MEDS: diazePAM 5 MG TABLET 10 MG PO ×2 (13:17→21:22)
[2021-07-15] MEDS: Gabapentin 400 MG CAPSULE PO ×2 (13:17→21:19)
[2021-07-15 14:32] VITALS: BP 137/78; PULSE 81; RESP 18; TEMP 36.8; O2SAT 97
--- NOTE | 2021-07-15 15:17 | PC.NURSE ---
Pt A&Ox3, pain 7/10 at this time. Medicated as per MAR orders for pain, LCA, dumas draiing clear yellow urine. Air pump for mattress gotten for pt comfort as T&Pq 2 was not helping with her coccyx discomfort. Bottom is red but blanchable at this time. Call silverio within reach, will continue to monitor.
[2021-07-15] MEDS: Enoxaparin Sodium 40 MG/0.4 ML SYRINGE SUBCUT (16:50)
[2021-07-15 20:56] VITALS: BP 157/72; PULSE 90; RESP 18; TEMP 36.6; O2SAT 94
[2021-07-15] MEDS: Atorvastatin Calcium 20 MG TABLET PO (21:19)
[2021-07-15] MEDS: Zolpidem Tartrate 5 MG TABLET 10 MG PO (21:23)
[2021-07-16] MEDS: carisoprodoL 350 MG TABLET PO ×4 (02:53→21:22)
--- NOTE | 2021-07-16 05:56 | PC.NURSE ---
RN assumed care at 1900. Patient received medication appropriately per AUG. Patient asked for a dose of Soma, seeing as she had received it recently, this RN consulted with Dr. Morris and another one-time order was placed for Soma to cover patient's pain without requiring a use of the TID PRN so that patient may utilize PRN doses throughout the day.
[2021-07-16 07:22] LABS: Hematocrit 40.2 % (37.0-47.0); Hemoglobin 13.1 g/dl (12.0-16.0); Mean Corpuscular HGB Conc 32.6 g/dl (31.0-35.0); Mean Corpuscular Hemoglobin 29.6 pg (27.0-33.0); Mean Platelet Volume 9.6 fL (9.4-12.3); Platelet Count 240 X10*3/uL (160-400); Red Blood Count 4.42 X10*6/uL (4.20-5.50); Red Cell Distribution Width 14.2 % (11.0-16.0); White Blood Count 4.6 X10*3/uL (4.8-10.8)
[2021-07-16 07:32] LABS: C Reactive Protein 1.71 mg/dL (< or = 0.50)
--- NOTE | 2021-07-16 07:54 | PC.NURSE ---
Pt A&Ox4, no pain at this time, repositioned for breakfast, tray set up. Lungs diminished in the bases, dumas with clear yellow urine at this time. Call silverio within reach, will continue to monitor.
[2021-07-16] MEDS: Baclofen 20 MG TABLET PO ×5 (08:28→21:22)
[2021-07-16] MEDS: diazePAM 5 MG TABLET 10 MG PO ×2 (08:28→21:22)
[2021-07-16] MEDS: Aspirin 81 MG TAB.CHEW PO (08:28)
--- NOTE | 2021-07-16 12:00 | HO.MIDLINE_ITS ---
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 Using ultrasound guidance, CEPHALIC vein access was obtained IN SINGLE ATTEMPT BY THIS RN. A SINGLE LUMEN, NONPASV, (20G X 8CM) MIDLINE was positioned. The procedure was performed in S-272. Ultrasound was used to document vein patency and for needle entry. A formal ultrasound picture strip was recorded. Vascular Quality Management Coordinator has released the line for use and it is currently dressed with a StatLock, Tegaderm, and CHG disc. Verification has been performed for blood return and line patency. Arm Circumference: 31.5 CM Equipment: [employer] POWERGLIDE PRO Catheter Type: SINGLE LUMEN, NON-PASV, (20G X 8CM) Lot #: [id number]
[2021-07-16 12:31] VITALS: BP 128/55; PULSE 87; RESP 17; TEMP 36.9; O2SAT 95
--- NOTE | 2021-07-16 14:13 | P.PNIM_ITS ---
Subjective Subjective Date of Service: 07/16/21 Interval History: Back pain improved Marshall in place No fever Urine grew ESBL E coli Review of Systems Review of Systems: Yes all other systems are reviewed and are negative Physical Exam Vital Signs: Vital Signs: Last Vital Signs Temp 98.5 F 07/16/21 12:31 Pulse 87 07/16/21 12:31 Resp 17 07/16/21 12:31 BP 128/55 L 07/16/21 12:31 Pulse Ox 95 07/16/21 12:31 BMI result Body Mass Index 28.3 Gen: in no acute distress HEENT: sclera anicteric, moist mucus membranes Neck: supple Lungs: clear to auscultation bilaterally Heart: regular rate and rhythm, no murmurs Abd: soft, non-tender, non-distended : no CVAT Ext: no edema Skin: warm/well-perfused Neuro: alert and oriented x3, chronic L hemiparesis Psych: appropriate affect Objective Data Active Medications Acetaminophen (Acetaminophen 325 Mg Tablet) 650 mg PO Q6H PRN PRN Reason: Pain, Mild (Pain Scale 1-3) Last Admin: 07/14/21 09:39 Dose: 650 mg Documented by: GEORGINA Aspirin (Aspirin 81 Mg Tab.Chew) 81 mg PO DAILY [facility] Last Admin: 07/16/21 08:28 Dose: 81 mg Documented by: GEORGINA Atorvastatin Calcium (Atorvastatin Calcium 20 Mg Tablet) 20 mg PO BEDTIME [facility] Last Admin: 07/15/21 21:19 Dose: 20 mg Documented by: MIKAELA Baclofen (Baclofen 20 Mg Tablet) 20 mg PO QID [facility] Last Admin: 07/16/21 08:28 Dose: 20 mg Documented by: GEORGINA Baclofen (Baclofen 20 Mg Tablet) 20 mg PO BEDTIME [facility] Last Admin: 07/15/21 21:18 Dose: 20 mg Documented by: MIKAELA Carisoprodol (Carisoprodol 350 Mg Tablet) 350 mg PO TID PRN PRN Reason: Muscle Spasm Last Admin: 07/16/21 08:28 Dose: 350 mg Documented by: GEORGINA Heparin Sodium (Porcine) 50 (units/ Sodium Chloride 5 ml) 0 units IVFLUSH TID [facility] Diazepam (Diazepam 5 Mg Tablet) 10 mg PO BID PRN PRN Reason: anxiety/sleep Last Admin: 07/16/21 08:28 Dose: 10 mg Documented by: GEORGINA Enoxaparin Sodium (Enoxaparin Sodium 40 Mg/0.4 Ml Syringe) 40 mg SUBCUT Q24H [facility] Last Admin: 07/15/21 16:50 Dose: 40 mg Documented by: GEORGINA Gabapentin (Gabapentin 400 Mg Capsule) 400 mg PO BID@1200,2100 [facility] Last Admin: 07/15/21 21:19 Dose: 400 mg Documented by: MIKAELA Meropenem 1 gm/ Sodium (Chloride) 100 mls @ 200 mls/hr IV Q8H [facility] Stop: 07/17/21 15:00 Last Admin: 07/16/21 08:28 Dose: 200 mls/hr Documented by: GEORGINA Ertapenem 1 gm/ Sodium (Chloride) 50 mls @ 100 mls/hr IV ONCE ONE Stop: 07/17/21 15:29 Ondansetron HCl (Ondansetron Hcl 4 Mg/2 Ml Vial) 4 mg IVPUSH Q8H PRN PRN Reason: Nausea and Vomiting Pharmacy Consult (Consult Rx Perform Med Rec) 1 each MISCELLANE ONCE PRN PRN Reason: Consult order Sodium Chloride (0.9 % Sodium Chloride Flush 3 Ml Syringe) 3 ml IVFLUSH QSHIFT [facility] Last Admin: 07/16/21 05:36 Dose: Not Given Documented by: MIKAELA Non-Admin Reason: Patient Asleep Zolpidem Tartrate (Zolpidem Tartrate 5 Mg Tablet) 10 mg PO BEDTIME PRN PRN Reason: Insomnia Last Admin: 07/15/21 21:23 Dose: 10 mg Documented by: MIKAELA Labs CBC & Chem 7: 07/16/21 07:03 07/14/21 06:35 Labs: Laboratory Results - last 24 hr 07/16/21 07/16/21 07:03 07:03 MCV 91.0 MCH 29.6 MCHC 32.6 RDW 14.2 Plt Count 240 MPV 9.6 Absolute Nucleated RBC 0.000 Nucleated RBC % (auto) 0.0 C-Reactive Protein 1.71 H Microbiology 07/13/21 14:44 Urine clean catch - Clean Catch Midstream Urine Culture - Final Escherichia coli 07/13/21 14:43 Blood - Venous Blood Culture - Preliminary No growth after 48 hours. 07/13/21 14:43 Blood - Venous Blood Culture - Preliminary No growth after 48 hours. Microbiology Microbiology Results: Microbiology 07/13/21 14:44 Urine Culture - Final Urine clean catch - Clean Catch Midstream Escherichia coli 07/13/21 14:43 Blood Culture - Preliminary Blood - Venous No growth after 48 hours. 07/13/21 14:43 Blood Culture - Preliminary Blood - Venous No growth after 48 hours. Assessment and Plan (1) UTI (urinary tract infection): Status: Acute Plan hsopital d#4 60yo F with relapsing-remitting MS on Tecfidera, wheelchair-bound, hx ESBL UTIs, presenting with weakness/urinary retention # ESBL UTI - meropenem d#4, change to ertapenem upon discharge, total 14d, midline placed today # urinary retention - Marshall placed, Urology consulted. unable to do CIC- will need chronic Marshall and Uro f/u # HLD - statin # MS - continue baclofen - continue Tecfidera- needs to bring in from home # chronic pain - continue gabapentin, prn carisoprodol # insomnia - prn zolpidem # anxiety - prn diazepam # tobacco abuse - cessation counseling - declines NRT # mild protein/calorie malnutrition - supplements # inadequate self-care - CM consulted; pt has extensive home health services # VTE ppx - LMWH # dispo - anticipate home tomorrow after ertapenem given; VNA can start 07/18/21 Quality Stroke Does the patient have a stroke diagnosis?: No VTE Prior VTE?: No VTE Risk Level:: Medical - moderate - high VTE Device Contraindication: N/A - Device Ordered VTE Drug Contraindication: N/A - Med Ordered
[2021-07-16] MEDS: Gabapentin 400 MG CAPSULE PO ×2 (14:23→21:22)
[2021-07-16] MEDS: Heparin Sodium,Porcine Flush 50 UNITS, 0.9 % Sodium Chloride Flush 5 ML IVFLUSH ×2 (14:23→21:19)
[2021-07-16] MEDS: 0.9 % Sodium Chloride Flush 3 ML SYRINGE IVFLUSH (14:28)
[2021-07-16 14:37] VITALS: BP 128/55; PULSE 87; O2SAT 95
[2021-07-16] MEDS: Enoxaparin Sodium 40 MG/0.4 ML SYRINGE SUBCUT (16:45)
[2021-07-16 19:07] VITALS: BP 151/65; PULSE 95; RESP 16; TEMP 36.6; O2SAT 94
[2021-07-16] MEDS: Atorvastatin Calcium 20 MG TABLET PO (21:22)
[2021-07-16] MEDS: Zolpidem Tartrate 5 MG TABLET 10 MG PO (21:22)
[2021-07-16 23:53] VITALS: BP 147/70; PULSE 87; RESP 16; O2SAT 94
[2021-07-17] MEDS: 0.9 % Sodium Chloride Flush 3 ML SYRINGE IVFLUSH (01:17)
[2021-07-17 08:38] VITALS: BP 133/69; PULSE 91; RESP 14; TEMP 36.7; O2SAT 94
[2021-07-17] MEDS: carisoprodoL 350 MG TABLET PO (09:00)
[2021-07-17] MEDS: Aspirin 81 MG TAB.CHEW PO (09:00)
[2021-07-17] MEDS: Heparin Sodium,Porcine Flush 50 UNITS, 0.9 % Sodium Chloride Flush 5 ML IVFLUSH (09:00)
[2021-07-17] MEDS: Baclofen 20 MG TABLET PO ×2 (09:01→12:36)
--- NOTE | 2021-07-17 11:48 | PC.NURSE ---
Pt is A&Ox3, no complaints of pain at this time, LCA, no edema, abd soft, non tender at this time. Large BM this morning. Pt requesting PT and CM to see her this morning, contacted both. Plan for DC after 1500 antibitocs. Pt aware and agreeable to this plan. Pt will go home with midline in R arm for IV antibitocs at home with VNA services. Call silverio within reach. Will continue to monitor.
[2021-07-17] MEDS: Gabapentin 400 MG CAPSULE PO (12:36)
[2021-07-17 13:01] VITALS: BP 133/69; PULSE 91; O2SAT 94
--- NOTE | 2021-07-17 13:05 | MHC.CM.PN ---
Addendum entered by Maritza Pace 07/17/21 15:15: Left voicemail for , Otoniel, provided discharge plan and time. Original Note: Received notification from Dr Gooden that patient will be discharged on PO antibiotics. Abbey aware. Juan GOMEZ aware. Juan has been asked to physical therapy to patient's services. [facility] booked. [facility] with chart. Patient, Ryanne HERNANDEZ and Dr Gooden aware. Continue to monitor for d/c needs.
--- NOTE | 2021-07-17 13:37 | PM.DS ---
DS: Providers Provider Date of Service: 07/17/21 Date of admission: 07/13/21 15:52 Date of discharge: 07/17/21 Primary care physician: Pranav Su MD Consults: 07/13/21 15:36 Consult to Infectious Diseases Routine Consulting Provider: Glendy Booth Reason for consultation: UTI hx ESBL UTI 07/13/21 16:19 Consult to Urology Routine Consulting Provider: Colby Goetz Reason for consultation: urinary retention DS: Diagnosis Discharge Diagnosis (1) UTI (urinary tract infection): Status: Acute DS: Summary Hospital Course Hospital Course: 58-year-old female with a past medical history of hypertension, hyperlipidemia, diabetes, COPD, seasonal allergies; presented to the hospital today with a chief complaint of shortness of breath.? Patient reports that over the past 2 days she has been having shortness of breath and cough.? Associated with sputum production.? Denies any recent travel or sick contacts.? Denies any chest pain or palpitations.? Denies any nausea vomiting or diarrhea.? Reports that shortness of breath has been gradually worsening.? Reports she still continues to? smoke cigarettes. ER course: Per ER team patient on presentation noted to be mildly tachypneic, saturating 86% on room air; placed on supplemental oxygen; COVID-19 negative, flu negative, D-dimer negative; chest x-ray concerning for pneumonia given empiric antibiotics.? Patient also had wheezing and received steroids.? RSV was positive.? Admitted to the hospital for further management. Hospital Course. CT negative for PE/pneumonia. Steroid taper/supplemental O2 for RSV. Seen by ID...Urine EColi(ss Trim/Sulfa)..seen by Uro who recommends VNA for intermittant Cath/Marshall care. P.T recommended home PT. Time Spent with Patient Time attestation: Total time spent providing and/or coordinating discharge services: Discharge coordination time: Greater than 30 minutes Quality: Stroke Does the patient have a stroke diagnosis?: No Physical Exam Vital Signs: Vital Signs: Last Vital Signs Temp 98.1 F 07/17/21 08:38 Pulse 91 07/17/21 13:01 Resp 14 07/17/21 08:38 BP 133/69 07/17/21 13:01 Pulse Ox 94 07/17/21 13:01 BMI result Body Mass Index 28.3 Const: Other: NAD Resp: Other: Clear A/P Cardio: Other: -S4 + S1/S2 - S3 MRG Extrem: Other: no edema bilat DS: Data Data Completed and Pending Labs on day of discharge: Preliminary micro results at discharge 07/13/21 14:43 Blood Culture - Preliminary Blood - Venous No growth after 48 hours. 07/13/21 14:43 Blood Culture - Preliminary Blood - Venous No growth after 48 hours. Discharge Plan Discharge Patient Disposition: Home, Self-Care Discharge Diagnosis: UTI Referrals: Juan Powell [Outside] - 1 Week Pranav Su MD [Primary Care Provider] - 1 Week Discharge Medications: New sulfamethoxazole-trimethoprim [Bactrim DS] 800-160 mg tablet 1 tab PO BID Qty: 20 0RF Continued zolpidem 10 mg Tablet 10 mg PO BEDTIME PRN (Reason: Insomnia) 0RF aspirin 81 mg Tablet,Chewable 81 mg PO DAILY 0RF diazepam 5 mg Tablet 10 mg PO BID PRN (Reason: anxiety/sleep) 0RF simvastatin 40 mg Tablet 40 mg PO BEDTIME 0RF baclofen 20 mg Tablet 20 mg PO QID 0RF baclofen 20 mg Tablet 20 mg PO BEDTIME 0RF Rx Instructions: total bedtime dose 40 mg carisoprodol [Soma] 350 mg Tablet 350 mg PO TID PRN (Reason: Muscle Spasm) 0RF gabapentin 400 mg Tablet 400 mg PO BID@1200,2100 0RF dimethyl fumarate [Tecfidera] 240 mg Capsule,Delayed Release(Dr/Ec) 240 mg PO BID 0RF Discharge Orders: Discharge Order (Routine); Ordered 07/17/21 Ordered By: Mich Gooden Diet: advance to usual diet Activity on Discharge: As tolerated Stand Alone Forms: Patient Portal Discharge page Care Plan Goals: complete oral antibiotics as oredered Health Concerns: VNA to teach CIC ; home with Marshall Plan of Treatment: Cmplete ABTX; VNA to teach CIC; home P.T Assessment: See discharge summary
--- NOTE | 2021-07-17 13:38 | PC.NURSE ---
Pt aware of plan to DC on PO antibiotics at this time. Pt requesting immodium, states she is having diarrhea. Upon assessment, pt had small formed BM, Pt then stated she wanted immodium to constipate herself so she wasn't having stools at home. Explained to pt I could not in good conscience give her a medication which is contraindicating at this time. Awaiting DC orders and BLS transport. Will continue to monitor.
--- NOTE | 2021-07-17 13:58 | PC.NURSE ---
Midline pulled by this RN. CM aware to book transport.
[2021-07-17 14:50] VITALS: BP 135/73; PULSE 94; RESP 12; TEMP 36.6; O2SAT 97
== END 2021-07-17 17:10 | disposition home or self-care (01) | DRG 690 ==
LOC: HO.ED 15:42 → HO.EDOVER 16:08
PROVIDERS: Physician Assistant; Admitting Provider Family Medicine; Emergency Provider Emergency Medicine; PCP Internal Medicine; Visit Provider Family Medicine
DX: N39.0 Urinary tract infection, site not specified (principal); G81.94 Hemiplegia, unspecified affecting left nondominant side; E44.1 Mild protein-calorie malnutrition; G35 Multiple sclerosis; G40.909 Epilepsy, unspecified, not intractable, without status epilepticus; Z20.822 Contact with and (suspected) exposure to COVID-19; I25.2 Old myocardial infarction; Z99.3 Dependence on wheelchair; E78.5 Hyperlipidemia, unspecified; G47.00 Insomnia, unspecified; R29.6 Repeated falls; F41.9 Anxiety disorder, unspecified; Z91.81 History of falling; Z74.1 Need for assistance with personal care; N31.8 Other neuromuscular dysfunction of bladder; Z16.12 Extended spectrum beta lactamase (ESBL) resistance; B96.20 Unspecified Escherichia coli [E. coli] as the cause of diseases classified elsewhere; R62.7 Adult failure to thrive; Z68.28 Body mass index [BMI] 28.0-28.9, adult; F17.210 Nicotine dependence, cigarettes, uncomplicated; Z71.6 Tobacco abuse counseling; Z79.82 Long term (current) use of aspirin; Z79.899 Other long term (current) drug therapy
CPT/HCPCS: 36410; 36415; 51798; 70450; 71046; 71250; 72125; 72128; 72131; 76775; 80048; 80053; 80143; 80179; 80307; 81001; 82077; 83605; 84484; 85025; 85027; 86140; 87040; 87086; 87088; 87186; 87635; 93005; 96361; 96365; 97162; 97530; 99218; 99285; J0696; J1642; J1650; J2185

== ENCOUNTER 2021-09-08 11:23 | Observation (INO) | payer MEDICARE, OTHER, SELFPAY ==
[2021-09-08] VITALS (9 sets, daily range): BP systolic 100–139; BP diastolic 51–82; PULSE 92–104; RESP 14–22; TEMP 36.2–36.6; O2SAT 94–100; BMI 29.0; BMI 26.1
--- NOTE | ~2021-09-08 | XR_ITS ---
EXAMINATION: CHEST X-RAY CLINICAL INFORMATION: Cough. Fall. COMPARISON: Previous chest x-ray July 2021 TECHNIQUE: AP portable chest FINDINGS: The cardiac and mediastinal contours are stable. The lungs are clear. There is no pleural effusion or pneumothorax. There is an old ununited left distal humeral shaft fracture. Bony structures are otherwise unremarkable. XR/XR chest 1V IMPRESSION: No evidence for acute disease in the chest. EXAMINATION: Left humerus x-ray CLINICAL INFORMATION: Fall COMPARISON: None. TECHNIQUE: Left elbow x-ray January 2018 FINDINGS: There is an ununited displaced fracture of the distal humeral shaft. No acute fracture is seen. Joint spaces not well evaluated. Soft tissues are unremarkable. IMPRESSION: Old ununited left distal humeral shaft fracture. No acute fracture.
--- NOTE | ~2021-09-08 | CT_ITS ---
EXAMINATION: CT HEAD WITHOUT CONTRAST CLINICAL INFORMATION: Fall. Lethargy. COMPARISON: None. TECHNIQUE: Contiguous axial imaging was performed from the skull base to vertex without intravenous contrast. This CT examination was performed using dose optimization techniques as appropriate, variously including the following: * Automated exposure control * Adjustment of mA and/or kV according to patient size (this includes techniques or standardized protocols for targeted exams where dose is matched to indication/reason for exam; i.e. extremities or head) Use of iterative reconstruction technique DLP: 604 mGy-cm. FINDINGS: There is no evidence of acute intracranial hemorrhage or territorial infarction. No abnormal mass effect or midline shift is seen. Verdugo to white matter differentiation is well preserved. No extra-axial fluid collections are identified. No hydrocephalus. Proportional prominence of the ventricles and sulcal spaces is consistent with mild volume loss. Patchy periventricular and deep white matter hypoattenuation is consistent with mild small vessel ischemic changes. The osseous structures and soft tissues are normal. The mastoid air cells and visualized portions of the paranasal sinuses are well aerated. CT/CT head/brain wo con IMPRESSION: No acute intracranial pathology.
--- NOTE | ~2021-09-08 | XR_ITS ---
EXAMINATION: CHEST X-RAY CLINICAL INFORMATION: Cough. Fall. COMPARISON: Previous chest x-ray July 2021 TECHNIQUE: AP portable chest FINDINGS: The cardiac and mediastinal contours are stable. The lungs are clear. There is no pleural effusion or pneumothorax. There is an old ununited left distal humeral shaft fracture. Bony structures are otherwise unremarkable. XR/XR humerus LT IMPRESSION: No evidence for acute disease in the chest. EXAMINATION: Left humerus x-ray CLINICAL INFORMATION: Fall COMPARISON: None. TECHNIQUE: Left elbow x-ray January 2018 FINDINGS: There is an ununited displaced fracture of the distal humeral shaft. No acute fracture is seen. Joint spaces not well evaluated. Soft tissues are unremarkable. IMPRESSION: Old ununited left distal humeral shaft fracture. No acute fracture.
--- NOTE | 2021-09-08 11:31 | ECG_ITS ---
Test Reason : LETHRAGIC Blood Pressure : / mmHG Vent. Rate : 113 BPM Atrial Rate : 113 BPM P-R Int : 124 ms QRS Dur : 068 ms QT Int : 302 ms P-R-T Axes : 081 036 077 degrees QTc Int : 414 ms Sinus tachycardia Nonspecific T wave abnormality Abnormal ECG When compared with ECG of 13-JUL-2021 12:25, No significant change was found Referred By: Fariba Morrow Electronically Signed By:SUBHASH DENNIS MD
--- NOTE | 2021-09-08 11:33 | ED_ITS ---
HPI - General Adult General Chief complaint: Fall Stated complaint: RUBIO CATH FELL OUT PER EMS Time Seen by Provider: 09/08/21 11:25 Source: patient and EMS Mode of arrival: EMS Limitations: no limitations History of Present Illness HPI narrative: Patient comes to the emergency room via EMS. Patient pressed her Life Alert button, EMS arrived to her home. Patient was found in her bed, covered in feces. The Rubio had been pulled out. It is unclear how long the patient has been without a Rubio catheter. Patient states that she does not remember when was the last time that she had a meal. Patient reports multiple falls. Patient reports that anywhere between 2-7 days her home health aide bakery assistant has not checked on her. EMS reports that the patient's was at home too. Patient needs health aides as well and cannot take care of his . EMS reports that when they were leaving with the patient, a home health aide had just arrived to check on the patient's Related Data Home Medications Medication Instructions Recorded Confirmed aspirin 81 mg chewable tablet 81 mg PO DAILY 06/09/21 07/13/21 baclofen 20 mg tablet 20 mg PO BEDTIME 06/09/21 07/13/21 baclofen 20 mg tablet 20 mg PO QID 06/09/21 07/13/21 diazepam 5 mg tablet 10 mg PO BID PRN 06/09/21 07/13/21 simvastatin 40 mg tablet 40 mg PO BEDTIME 06/09/21 07/13/21 zolpidem 10 mg tablet 10 mg PO BEDTIME PRN 06/09/21 07/13/21 carisoprodol 350 mg tablet (Soma) 350 mg PO TID PRN 06/23/21 07/13/21 gabapentin 400 mg tablet 400 mg PO BID@1200,2100 06/23/21 07/13/21 dimethyl fumarate 240 mg 240 mg PO BID 07/14/21 07/14/21 capsule,delayed release (Tecfidera) Previous Rx's Medication Instructions Recorded sulfamethoxazole 800 1 tab PO BID #20 tab 07/17/21 mg-trimethoprim 160 mg tablet (Bactrim DS) Allergies Allergy/AdvReac Type Severity Reaction Status Date / Time No Known Allergies Allergy Verified 04/18/20 09:07 Review of Systems Review of Systems: Constitutional : No Weight loss, No Fever, No Chills, No Night Sweats, No Fatigue, complaining of generalized malaise and weakness ENT/Mouth : No Hearing loss, No Ear Pain, No Nasal Congestion, No Sinus Pain, No Hoarseness, No sore throat, No Rhinorrhea, No Swallowing Difficulty Eyes: No Eye Pain, No Swelling, No Redness, No Foreign Body, No Discharge, No Vision Changes Cardiovascular : No Chest Pain, No SOB, No Dyspnea on Exertion, No Orthopnea, No Edema, No Palpitations Respiratory : Complaining of chronic Cough, No Sputum, No Wheezing, No Smoke Exposure, No Dyspnea Gastrointestinal : No Nausea, No Vomiting, complaining of intermittent Diarrhea, No Constipation, No abdominal Pain, No Hematochezia, No Melena Genitourinary : Rubio catheter has fallen out Musculoskeletal : Complaining of diffuse body aches Skin : No Skin Lesions, No rash Neuro : No Weakness, No Numbness, No Paresthesias, No Loss of Consciousness, No Dizziness, No Headache Psych : No Anxiety/Panic, No Depression, No SI/HI/AH/VH, No Social Issues, Heme/Lymph: No Bruising, No Bleeding,No Lymphadenopathy Endocrine : No Polyuria, No Polydipsia, No Temperature Intolerance [facility] Past Medical History Medical History (Updated 09/08/21 @ 13:47 by Fariba Morrow MD) COPD (chronic obstructive pulmonary disease) Diabetes Femoral distal fracture Fracture of left tibial plateau Frequent falls Hemiparesis of left nondominant side Hyperlipidemia Hypertension Left hemiparesis Left humeral fracture Multiple sclerosis Multiple sclerosis NSTEMI (non-ST elevated myocardial infarction) Polysubstance abuse Seizure disorder Family History Family History Other Adopted Social History Social History Alcohol intake: never Patient Tobacco Use Status: Current everyday Tobacco user Substance Use Type: Opiates Advance Directives: Yes Advance Directives on File: Yes Advance Directives Date on File: 04/10/20 service: No Current occupational status: retired Physical Exam ED Vital Signs: BMI result Body Mass Index 29.0 Const Other: Appearance: Alert. Oriented X3. Disheveled, covered in feces, ill-appearing, weak Eyes: Pupils equal, round and reactive to light. ENT: Pharynx normal. Neck: Normal inspection. Neck supple. No lymph nodes noted. No crepitus CVS: Normal heart rate and rhythm. Pulses normal. Normal S1 and S2 Respiratory: No respiratory distress. Breath sounds normal. No Wheezing. No rales Abdomen: Soft and nontender. No rigidity. No distention. Skin: Skin warm and dry. Normal skin color. Normal skin turgor. Patient has stage I ulcers in her buttocks Extremities: No lower extremity edema. Patient has an obvious deformity to the left humerus distally. Painless when moved, patient states chronic Neuro: Oriented X 3. No motor deficit. No sensory deficit. Moving all extremities. No slurred speech. CN 2 through 12 grossly intact Psych: calm, cooperative, Course Course Course Narrative: Patient states that the formatting in her left arm is chronic. Patient states that she broke a couple of months ago and surgery was not an option for her. Also, patient is ill-appearing, I discussed the status with the patient, patient states that if her heart would stop or she needs to be intubated, she would like to be full code. Patient has a UTI, ceftriaxone was given, sepsis is not suspected. Patient's urine toxicology screen is positive for benzodiazepine, probably contributing to patient's altered mental status/lethargy Medical Decision Making Lab Data Result diagrams: 09/08/21 12:22 09/08/21 12:23 Labs: Lab Results 09/08/21 09/08/21 09/08/21 Range/Units 12:22 12:22 12:22 WBC 6.8 (4.8-10.8) X10*3/uL RBC 5.18 (4.20-5.50) X10*6/uL Hgb 15.6 (12.0-16.0) g/dl Hct 48.6 H D (37.0-47.0) % MCV 93.8 (80.0-98.0) fL MCH 30.1 (27.0-33.0) pg MCHC 32.1 (31.0-35.0) g/dl RDW 15.1 (11.0-16.0) % Plt Count 382 D (160-400) X10*3/uL MPV 9.5 (9.4-12.3) fL Immature Gran % (Auto) 0.3 (0.0-0.4) % Neut % (Auto) 77.5 H (45-73) % Lymph % (Auto) 10.8 L (20-40) % [place] % (Auto) 7.7 (2-11) % Eos % (Auto) 3.1 (0-4) % Baso % (Auto) 0.6 (0-2) % Lymph # (Auto) 0.7 L (1.2-4.9) X10*3/uL [place] # (Auto) 0.5 (0.1-1.2) X10*3/uL Eos # (Auto) 0.2 (0.0-0.4) X10*3/uL Baso # (Auto) 0.0 (0.0-0.2) X10*3/uL Abs Immat Gran (auto) 0.02 (0.00-0.03) X10*3/uL Absolute Neuts (auto) 5.3 (2.0-8.3) x10*3/uL Absolute Nucleated RBC 0.000 (0.0-0.012) X10*3/uL Nucleated RBC % (auto) 0.0 (0.0-0.2) /100WBC PT (9.9-13.0) SEC INR (0.9-1.1) Sodium (135-145) mmol/L Potassium (3.3-5.1) mmol/L Chloride (96-108) mmol/L Carbon Dioxide (22-29) mmol/L Anion Gap (12-20) BUN (9-16) mg/dL Creatinine (0.5-1.4) mg/dL Estim Creat Clear Calc Estimated GFR POC Glucose (60-115) mg/dL Random Glucose (60-115) mg/dL Lactic Acid 1.3 (0.5-2.0) mmol/L Calcium (8.4-10.2) mg/dL Magnesium (1.6-2.6) mg/dL Total Bilirubin (0.0-1.0) mg/dL Direct Bilirubin (0.0-0.5) mg/dL AST (5-31) U/L ALT (0-31) U/L Alkaline Phosphatase (39-117) U/L Ammonia (13-55) umol/L Total Creatine Kinase (26-140) U/L Troponin I High Sens (<3.5-17.0) ng/L Total Protein (6.5-8.0) g/dL Albumin (3.5-5.0) g/dL Lipase (8-78) U/L TSH (0.32-4.0) uIU/mL Urine Color Urine Appearance Urine pH (5.0-8.0) Ur Specific [place] (1.005-1.025) Urine Protein (NEG-TRACE) MG/DL Urine Glucose (UA) (NEG) MG/DL Urine Ketones (NEG) MG/DL Urine Blood (NEG) Urine Nitrite (NEG) Ur Leukocyte Esterase (NEG) Urine RBC (0) /HPF Urine WBC (0-4) /HPF Ur Squamous Epith Cells /LPF Urine Bacteria /LPF Urine Opiates Screen (Not Detect) Urine Fentanyl Screen (Not Detect) Ur Barbiturates Screen (Not Detect) Ur Phencyclidine Scrn (Not Detect) Ur Amphetamines Screen (Not Detect) U Benzodiazepines Scrn (Not Detect) Urine Cocaine Screen (Not Detect) U Marijuana (THC) Screen (Not Detect) Ethyl Alcohol mg/dL COVID-19 (ALESSANDRA) Negative (Negative) COVID-19 Clin Com See Note 09/08/21 09/08/21 09/08/21 Range/Units 12:22 12:22 12:23 WBC (4.8-10.8) X10*3/uL RBC (4.20-5.50) X10*6/uL Hgb (12.0-16.0) g/dl Hct (37.0-47.0) % MCV (80.0-98.0) fL MCH (27.0-33.0) pg MCHC (31.0-35.0) g/dl RDW (11.0-16.0) % Plt Count (160-400) X10*3/uL MPV (9.4-12.3) fL Immature Gran % (Auto) (0.0-0.4) % Neut % (Auto) (45-73) % Lymph % (Auto) (20-40) % [place] % (Auto) (2-11) % Eos % (Auto) (0-4) % Baso % (Auto) (0-2) % Lymph # (Auto) (1.2-4.9) X10*3/uL [place] # (Auto) (0.1-1.2) X10*3/uL Eos # (Auto) (0.0-0.4) X10*3/uL Baso # (Auto) (0.0-0.2) X10*3/uL Abs Immat Gran (auto) (0.00-0.03) X10*3/uL Absolute Neuts (auto) (2.0-8.3) x10*3/uL Absolute Nucleated RBC (0.0-0.012) X10*3/uL Nucleated RBC % (auto) (0.0-0.2) /100WBC PT 11.7 (9.9-13.0) SEC INR 1.0 (0.9-1.1) Sodium 145 (135-145) mmol/L Potassium 4.1 (3.3-5.1) mmol/L Chloride 104 (96-108) mmol/L Carbon Dioxide 30 H (22-29) mmol/L Anion Gap 15 (12-20) BUN 11 (9-16) mg/dL Creatinine 0.73 (0.5-1.4) mg/dL Estim Creat Clear Calc 86.0 Estimated GFR > 60 POC Glucose (60-115) mg/dL Random Glucose 112 (60-115) mg/dL Lactic Acid (0.5-2.0) mmol/L Calcium 10.4 H D (8.4-10.2) mg/dL Magnesium 2.4 (1.6-2.6) mg/dL Total Bilirubin 0.3 (0.0-1.0) mg/dL Direct Bilirubin < 0.2 (0.0-0.5) mg/dL AST 12 (5-31) U/L ALT 12 (0-31) U/L Alkaline Phosphatase 87 (39-117) U/L Ammonia 22 (13-55) umol/L Total Creatine Kinase 59 D (26-140) U/L Troponin I High Sens (<3.5-17.0) ng/L Total Protein 7.7 (6.5-8.0) g/dL Albumin 4.4 (3.5-5.0) g/dL Lipase 26 (8-78) U/L TSH 1.45 (0.32-4.0) uIU/mL Urine Color Urine Appearance Urine pH (5.0-8.0) Ur Specific [place] (1.005-1.025) Urine Protein (NEG-TRACE) MG/DL Urine Glucose (UA) (NEG) MG/DL Urine Ketones (NEG) MG/DL Urine Blood (NEG) Urine Nitrite (NEG) Ur Leukocyte Esterase (NEG) Urine RBC (0) /HPF Urine WBC (0-4) /HPF Ur Squamous Epith Cells /LPF Urine Bacteria /LPF Urine Opiates Screen (Not Detect) Urine Fentanyl Screen (Not Detect) Ur Barbiturates Screen (Not Detect) Ur Phencyclidine Scrn (Not Detect) Ur Amphetamines Screen (Not Detect) U Benzodiazepines Scrn (Not Detect) Urine Cocaine Screen (Not Detect) U Marijuana (THC) Screen (Not Detect) Ethyl Alcohol mg/dL COVID-19 (ALESSANDRA) (Negative) COVID-19 Clin Com 09/08/21 09/08/21 09/08/21 Range/Units 12:23 12:23 12:25 WBC (4.8-10.8) X10*3/uL RBC (4.20-5.50) X10*6/uL Hgb (12.0-16.0) g/dl Hct (37.0-47.0) % MCV (80.0-98.0) fL MCH (27.0-33.0) pg MCHC (31.0-35.0) g/dl RDW (11.0-16.0) % Plt Count (160-400) X10*3/uL MPV (9.4-12.3) fL Immature Gran % (Auto) (0.0-0.4) % Neut % (Auto) (45-73) % Lymph % (Auto) (20-40) % [place] % (Auto) (2-11) % Eos % (Auto) (0-4) % Baso % (Auto) (0-2) % Lymph # (Auto) (1.2-4.9) X10*3/uL [place] # (Auto) (0.1-1.2) X10*3/uL Eos # (Auto) (0.0-0.4) X10*3/uL Baso # (Auto) (0.0-0.2) X10*3/uL Abs Immat Gran (auto) (0.00-0.03) X10*3/uL Absolute Neuts (auto) (2.0-8.3) x10*3/uL Absolute Nucleated RBC (0.0-0.012) X10*3/uL Nucleated RBC % (auto) (0.0-0.2) /100WBC PT (9.9-13.0) SEC INR (0.9-1.1) Sodium (135-145) mmol/L Potassium (3.3-5.1) mmol/L Chloride (96-108) mmol/L Carbon Dioxide (22-29) mmol/L Anion Gap (12-20) BUN (9-16) mg/dL Creatinine (0.5-1.4) mg/dL Estim Creat Clear Calc Estimated GFR POC Glucose (60-115) mg/dL Random Glucose (60-115) mg/dL Lactic Acid (0.5-2.0) mmol/L Calcium (8.4-10.2) mg/dL Magnesium (1.6-2.6) mg/dL Total Bilirubin (0.0-1.0) mg/dL Direct Bilirubin (0.0-0.5) mg/dL AST (5-31) U/L ALT (0-31) U/L Alkaline Phosphatase (39-117) U/L Ammonia (13-55) umol/L Total Creatine Kinase (26-140) U/L Troponin I High Sens < 3.5 (<3.5-17.0) ng/L Total Protein (6.5-8.0) g/dL Albumin (3.5-5.0) g/dL Lipase (8-78) U/L TSH (0.32-4.0) uIU/mL Urine Color YELLOW Urine Appearance CLOUDY Urine pH 7.5 (5.0-8.0) Ur Specific [place] 1.010 (1.005-1.025) Urine Protein NEG (NEG-TRACE) MG/DL Urine Glucose (UA) NEG (NEG) MG/DL Urine Ketones NEG (NEG) MG/DL Urine Blood 3+ H (NEG) Urine Nitrite POS H (NEG) Ur Leukocyte Esterase 3+ H (NEG) Urine RBC 5-9 H (0) /HPF Urine WBC 15-29 H (0-4) /HPF Ur Squamous Epith Cells NONE /LPF Urine Bacteria 4+ /LPF Urine Opiates Screen (Not Detect) Urine Fentanyl Screen (Not Detect) Ur Barbiturates Screen (Not Detect) Ur Phencyclidine Scrn (Not Detect) Ur Amphetamines Screen (Not Detect) U Benzodiazepines Scrn (Not Detect) Urine Cocaine Screen (Not Detect) U Marijuana (THC) Screen (Not Detect) Ethyl Alcohol < 10 mg/dL COVID-19 (ALESSANDRA) (Negative) COVID-19 Clin Com 09/08/21 09/08/21 Range/Units 12:25 12:42 WBC (4.8-10.8) X10*3/uL RBC (4.20-5.50) X10*6/uL Hgb (12.0-16.0) g/dl Hct (37.0-47.0) % MCV (80.0-98.0) fL MCH (27.0-33.0) pg MCHC (31.0-35.0) g/dl RDW (11.0-16.0) % Plt Count (160-400) X10*3/uL MPV (9.4-12.3) fL Immature Gran % (Auto) (0.0-0.4) % Neut % (Auto) (45-73) % Lymph % (Auto) (20-40) % [place] % (Auto) (2-11) % Eos % (Auto) (0-4) % Baso % (Auto) (0-2) % Lymph # (Auto) (1.2-4.9) X10*3/uL [place] # (Auto) (0.1-1.2) X10*3/uL Eos # (Auto) (0.0-0.4) X10*3/uL Baso # (Auto) (0.0-0.2) X10*3/uL Abs Immat Gran (auto) (0.00-0.03) X10*3/uL Absolute Neuts (auto) (2.0-8.3) x10*3/uL Absolute Nucleated RBC (0.0-0.012) X10*3/uL Nucleated RBC % (auto) (0.0-0.2) /100WBC PT (9.9-13.0) SEC INR (0.9-1.1) Sodium (135-145) mmol/L Potassium (3.3-5.1) mmol/L Chloride (96-108) mmol/L Carbon Dioxide (22-29) mmol/L Anion Gap (12-20) BUN (9-16) mg/dL Creatinine (0.5-1.4) mg/dL Estim Creat Clear Calc Estimated GFR POC Glucose 96 (60-115) mg/dL Random Glucose (60-115) mg/dL Lactic Acid (0.5-2.0) mmol/L Calcium (8.4-10.2) mg/dL Magnesium (1.6-2.6) mg/dL Total Bilirubin (0.0-1.0) mg/dL Direct Bilirubin (0.0-0.5) mg/dL AST (5-31) U/L ALT (0-31) U/L Alkaline Phosphatase (39-117) U/L Ammonia (13-55) umol/L Total Creatine Kinase (26-140) U/L Troponin I High Sens (<3.5-17.0) ng/L Total Protein (6.5-8.0) g/dL Albumin (3.5-5.0) g/dL Lipase (8-78) U/L TSH (0.32-4.0) uIU/mL Urine Color Urine Appearance Urine pH (5.0-8.0) Ur Specific [place] (1.005-1.025) Urine Protein (NEG-TRACE) MG/DL Urine Glucose (UA) (NEG) MG/DL Urine Ketones (NEG) MG/DL Urine Blood (NEG) Urine Nitrite (NEG) Ur Leukocyte Esterase (NEG) Urine RBC (0) /HPF Urine WBC (0-4) /HPF Ur Squamous Epith Cells /LPF Urine Bacteria /LPF Urine Opiates Screen Not Detected (Not Detect) Urine Fentanyl Screen Not Detected (Not Detect) Ur Barbiturates Screen Not Detected (Not Detect) Ur Phencyclidine Scrn Not Detected (Not Detect) Ur Amphetamines Screen Not Detected (Not Detect) U Benzodiazepines Scrn POSITIVE H (Not Detect) Urine Cocaine Screen Not Detected (Not Detect) U Marijuana (THC) Screen Not Detected (Not Detect) Ethyl Alcohol mg/dL COVID-19 (ALESSANDRA) (Negative) COVID-19 Clin Com Imaging Data Head CT: Radiologist's impression: FINDINGS: There is no evidence of acute intracranial hemorrhage or territorial infarction. No abnormal mass effect or midline shift is seen. [place] to white matter differentiation is well preserved. No extra-axial fluid collections are identified. No hydrocephalus. Proportional prominence of the ventricles and sulcal spaces is consistent with mild volume loss. Patchy periventricular and deep white matter hypoattenuation is consistent with mild small vessel ischemic changes. The osseous structures and soft tissues are normal. The mastoid air cells and visualized portions of the paranasal sinuses are well aerated. ? CT/CT head/brain wo con IMPRESSION: No acute intracranial pathology. Chest x-ray: Radiologist's impression: FINDINGS: The cardiac and mediastinal contours are stable. The lungs are clear. There is no pleural effusion or pneumothorax. There is an old ununited left distal humeral shaft fracture. Bony structures are otherwise unremarkable.? XR/XR chest 1V IMPRESSION: No evidence for acute disease in the chest. ? EXAMINATION: Left humerus x-ray ? CLINICAL INFORMATION: Fall? ? COMPARISON: None.? ? TECHNIQUE: Left elbow x-ray January 2018? ? FINDINGS: There is an ununited displaced fracture of the distal humeral shaft. No acute fracture is seen. Joint spaces not well evaluated. Soft tissues are unremarkable. ? IMPRESSION: Old ununited left distal humeral shaft fracture. No acute fracture.? ? Discharge Plan Discharge Clinical Impression: Weakness, UTI (urinary tract infection) Patient Disposition: Admitted As Inpatient Prescriptions: No Action zolpidem 10 mg Tablet 10 mg PO BEDTIME PRN (Reason: Insomnia) 0RF aspirin 81 mg Tablet,Chewable 81 mg PO DAILY 0RF diazepam 5 mg Tablet 10 mg PO BID PRN (Reason: anxiety/sleep) 0RF simvastatin 40 mg Tablet 40 mg PO BEDTIME 0RF baclofen 20 mg Tablet 20 mg PO QID 0RF baclofen 20 mg Tablet 20 mg PO BEDTIME 0RF Rx Instructions: total bedtime dose 40 mg carisoprodol [Soma] 350 mg Tablet 350 mg PO TID PRN (Reason: Muscle Spasm) 0RF gabapentin 400 mg Tablet 400 mg PO BID@1200,2100 0RF dimethyl fumarate [Tecfidera] 240 mg Capsule,Delayed Release(Dr/Ec) 240 mg PO BID 0RF sulfamethoxazole-trimethoprim [Bactrim DS] 800-160 mg tablet 1 tab PO BID Qty: 20 0RF
[2021-09-08] MEDS: 0.9 % Sodium Chloride 1,000 ML 999 ML IVCONT (11:45)
[2021-09-08 12:33] LABS: MANUAL DIFF FLAG NO
[2021-09-08 12:41] LABS: Basophils Percent Auto 0.6 % (0-2); Eosinophils Absolute Auto 0.2 X10*3/uL (0.0-0.4); Eosinophils Percent Auto 3.1 % (0-4); Hematocrit 48.6 % (37.0-47.0); Hemoglobin 15.6 g/dl (12.0-16.0); Imm Gran Abs Auto 0.02 X10*3/uL (0.00-0.03); Imm Gran Pct Auto 0.3 % (0.0-0.4); Lymphocytes Absolute Auto 0.7 X10*3/uL (1.2-4.9); Lymphocytes Percent Auto 10.8 % (20-40); Mean Corpuscular HGB Conc 32.1 g/dl (31.0-35.0); Mean Corpuscular Hemoglobin 30.1 pg (27.0-33.0); Mean Corpuscular Volume 93.8 fL (80.0-98.0); Mean Platelet Volume 9.5 fL (9.4-12.3); Monocytes Absolute Auto 0.5 X10*3/uL (0.1-1.2); Monocytes Percent Auto 7.7 % (2-11); Neutrophils Absolute Auto 5.3 x10*3/uL (2.0-8.3); Neutrophils Percent Auto 77.5 % (45-73); Platelet Count 382 X10*3/uL (160-400); Red Blood Count 5.18 X10*6/uL (4.20-5.50); Red Cell Distribution Width 15.1 % (11.0-16.0); White Blood Count 6.8 X10*3/uL (4.8-10.8)
[2021-09-08 12:45] LABS: Ammonia 22 umol/L (13-55)
[2021-09-08 12:48] LABS: Lactic Acid 1.3 mmol/L (0.5-2.0)
[2021-09-08 12:49] LABS: Prothrombin Time 11.7 SEC (9.9-13.0)
[2021-09-08 12:50] LABS: Ethanol < 10 mg/dL
[2021-09-08 12:51] LABS: Amphetamine Screen Urine Not Detected (Not Detect); Barbiturates, Urine Not Detected (Not Detect); Benzodiazepines Screen Urine POSITIVE (Not Detect); Cannabinoid Screen Urine Not Detected (Not Detect); Cocaine Screen Urine Not Detected (Not Detect); Fentanyl, urine Not Detected (Not Detect); Opiate Screen Urine Not Detected (Not Detect); Phencyclidine Screen Urine Not Detected (Not Detect)
[2021-09-08 12:52] LABS: Alanine Aminotransferase 12 U/L (0-31); Albumin Level 4.4 g/dL (3.5-5.0); Alkaline Phosphatase 87 U/L (39-117); Anion Gap 15 (12-20); Aspartate Amino Transferase 12 U/L (5-31); Bilirubin Direct < 0.2 mg/dL (0.0-0.5); Bilirubin Total 0.3 mg/dL (0.0-1.0); Blood Urea Nitrogen 11 mg/dL (9-16); Calcium 10.4 mg/dL (8.4-10.2); Carbon Dioxide 30 mmol/L (22-29); Chloride 104 mmol/L (96-108); Estimated Glomerular Filt Rate > 60; Glucose Random 112 mg/dL (60-115); Lipase 26 U/L (8-78); Magnesium 2.4 mg/dL (1.6-2.6); Potassium 4.1 mmol/L (3.3-5.1); Sodium 145 mmol/L (135-145); Total Protein 7.7 g/dL (6.5-8.0)
[2021-09-08 12:59] LABS: Troponin-I High Sensitivity < 3.5 ng/L (<3.5-17.0)
[2021-09-08 13:06] LABS: Appearance Urine CLOUDY; Color Urine YELLOW; Glucose Urine UA NEG (NEG); Leukocyte Esterase Urine 3+ (NEG); Nitrite Urine POS (NEG); PH 7.5 (5.0-8.0); UACC Culture Trigger YES; Urine Blood 3+ (NEG); Urine Ketones NEG (NEG); Urine Protein NEG (NEG-TRACE)
[2021-09-08 13:14] LABS: TSH reflex Free T4 1.45 uIU/mL (0.32-4.0)
[2021-09-08 13:18] LABS: Glucose, Whole Blood 96 mg/dL (60-115)
[2021-09-08 13:20] LABS: COVID-19 Test Negative (Negative)
[2021-09-08 13:37] LABS: Bacteria Urine 4+ /LPF
[2021-09-08] MEDS: cefTRIAXone sodium 1 GM in 0.9 % Sodium Chloride 50 ML IV (14:04)
--- NOTE | 2021-09-08 15:00 | P.HPHOSP_ITS ---
History of Present Illness Date of Service: 09/08/21 Chief Complaint: Fall This is a 60 yo F with a PMH as outlined below who is wheel chair bound and presents to [facility] ED after her life alert button was pressed. The patient reports that on the day prior to arrival, her wheel chair flipped over to the side (she is not very clear about how this exactly happened). She reports that she was unable to get her self straightened up. Her was unable to help her as he is also wheel chair bound. She reports that her wanted to call the police/fire department but she refused as she did not want come to the hospital. However, today she decided to press her life alert button and was eventually brought here. Prior to the wheel chair incident, the patient reports being at her baseline. No urinary frequency/urgent/dysuria (although she does have a chronic dumas). No fevers or chills. No loss of appetite or generalized malaise. Patients work up in the ED revealed UA suggestive of UTI. She has been given a dose of IV rocephin (followed by [facility] due to history of resistant UTI). She will not be observed overnight. Review of Systems Review of Systems: negative except HPI [facility] Medical History COPD (chronic obstructive pulmonary disease) Diabetes Femoral distal fracture Fracture of left tibial plateau Frequent falls Hemiparesis of left nondominant side Hyperlipidemia Hypertension Left hemiparesis Left humeral fracture Multiple sclerosis Multiple sclerosis NSTEMI (non-ST elevated myocardial infarction) Polysubstance abuse Seizure disorder Family History Other Adopted Surgical History (Updated 09/08/21 @ 15:13 by Sumanth Perez MD) No pertinent past surgical history Social History Alcohol intake: never Patient Tobacco Use Status: Current everyday Tobacco user Substance Use Type: Opiates Advance Directives: Yes Advance Directives on File: Yes Advance Directives Date on File: 04/10/20 service: No Current occupational status: retired Meds Allergies Allergy/AdvReac Type Severity Reaction Status Date / Time No Known Allergies Allergy Verified 04/18/20 09:07 Active Medications: Current Medications Pharmacy Consult (Consult Rx Perform Med Rec) 1 each MISCELLANE ONCE PRN PRN Reason: Consult order Home Medications Medication Instructions Recorded Confirmed Last Taken Type aspirin 81 mg chewable tablet 81 mg PO DAILY 06/09/21 07/13/21 07/12/21 History baclofen 20 mg tablet 20 mg PO BEDTIME 06/09/21 07/13/21 07/12/21 History baclofen 20 mg tablet 20 mg PO QID 06/09/21 07/13/21 07/13/21 History diazepam 5 mg tablet 10 mg PO BID PRN 06/09/21 07/13/21 07/13/21 History simvastatin 40 mg tablet 40 mg PO BEDTIME 06/09/21 07/13/21 07/12/21 History zolpidem 10 mg tablet 10 mg PO BEDTIME PRN 06/09/21 07/13/21 07/12/21 History carisoprodol 350 mg tablet (Soma) 350 mg PO TID PRN 06/23/21 07/13/21 07/13/21 History dimethyl fumarate 240 mg 240 mg PO BID 07/14/21 07/14/21 Unknown History capsule,delayed release (Tecfidera) cholecalciferol (vitamin D3) 25 25 mcg PO DAILY 09/08/21 09/08/21 Unknown History mcg (1,000 unit) tablet (Vitamin D3) gabapentin 300 mg capsule 300 mg PO BID 09/08/21 09/08/21 Unknown History Physical Exam Vital Signs and Narrative: Vital Signs: Last Vital Signs Temp 97.5 F 09/08/21 12:00 Pulse 100 09/08/21 13:40 Resp 22 H 09/08/21 13:40 BP 123/75 09/08/21 13:40 Pulse Ox 100 09/08/21 13:40 BMI result Body Mass Index 29.0 Const: Other: Constitutional - Awake and Alert, Unkempt HEENT - PERRLA, EOMI, later supraorbial bruising on the L -- appears to be old (yellow/greenish discoloration) Cardiovascular - S1S2, RRR, No edema Respiratory - Normal lung expansion, Normal respiratory effort, No respiratory distress, CTA bilaterally Gastrointestinal - NT / ND; +BS; No rebound or guarding - No CVA tenderness Extremities - no calf tenderness bilaterally, no swelling Musculoskeletal - Normal inspection Skin - Warm/Dry Neurological - Alert & oriented x3, No focal deficit Psychological - Appropriate affect Results Labs CBC and Chem 7: 09/08/21 12:22 09/08/21 12:23 Labs: Laboratory Results - last 24 hr 09/08/21 09/08/21 09/08/21 12:22 12:22 12:22 MCV 93.8 MCH 30.1 MCHC 32.1 RDW 15.1 Plt Count 382 D MPV 9.5 Immature Gran % (Auto) 0.3 Neut % (Auto) 77.5 H Lymph % (Auto) 10.8 L Warren % (Auto) 7.7 Eos % (Auto) 3.1 Baso % (Auto) 0.6 Lymph # (Auto) 0.7 L Warren # (Auto) 0.5 Eos # (Auto) 0.2 Baso # (Auto) 0.0 Abs Immat Gran (auto) 0.02 Absolute Neuts (auto) 5.3 Absolute Nucleated RBC 0.000 Nucleated RBC % (auto) 0.0 PT INR Anion Gap Estim Creat Clear Calc Estimated GFR POC Glucose Random Glucose Lactic Acid 1.3 Calcium Magnesium Total Bilirubin Direct Bilirubin AST ALT Alkaline Phosphatase Ammonia Total Creatine Kinase Troponin I High Sens Total Protein Albumin Lipase TSH Urine Color Urine Appearance Urine pH Ur Specific [place] Urine Protein Urine Glucose (UA) Urine Ketones Urine Blood Urine Nitrite Ur Leukocyte Esterase Urine RBC Urine WBC Ur Squamous Epith Cells Urine Bacteria Urine Opiates Screen Urine Fentanyl Screen Ur Barbiturates Screen Ur Phencyclidine Scrn Ur Amphetamines Screen U Benzodiazepines Scrn Urine Cocaine Screen U Marijuana (THC) Screen Ethyl Alcohol COVID-19 (ALESSANDRA) Negative COVID-19 Clin Com See Note 09/08/21 09/08/21 09/08/21 12:22 12:22 12:23 MCV MCH MCHC RDW Plt Count MPV Immature Gran % (Auto) Neut % (Auto) Lymph % (Auto) Warren % (Auto) Eos % (Auto) Baso % (Auto) Lymph # (Auto) Warren # (Auto) Eos # (Auto) Baso # (Auto) Abs Immat Gran (auto) Absolute Neuts (auto) Absolute Nucleated RBC Nucleated RBC % (auto) PT 11.7 INR 1.0 Anion Gap 15 Estim Creat Clear Calc 86.0 Estimated GFR > 60 POC Glucose Random Glucose 112 Lactic Acid Calcium 10.4 H D Magnesium 2.4 Total Bilirubin 0.3 Direct Bilirubin < 0.2 AST 12 ALT 12 Alkaline Phosphatase 87 Ammonia 22 Total Creatine Kinase 59 D Troponin I High Sens Total Protein 7.7 Albumin 4.4 Lipase 26 TSH 1.45 Urine Color Urine Appearance Urine pH Ur Specific [place] Urine Protein Urine Glucose (UA) Urine Ketones Urine Blood Urine Nitrite Ur Leukocyte Esterase Urine RBC Urine WBC Ur Squamous Epith Cells Urine Bacteria Urine Opiates Screen Urine Fentanyl Screen Ur Barbiturates Screen Ur Phencyclidine Scrn Ur Amphetamines Screen U Benzodiazepines Scrn Urine Cocaine Screen U Marijuana (THC) Screen Ethyl Alcohol COVID-19 (ALESSANDRA) COVID-19 [employer] 09/08/21 09/08/21 09/08/21 12:23 12:23 12:25 MCV MCH MCHC RDW Plt Count MPV Immature Gran % (Auto) Neut % (Auto) Lymph % (Auto) Warren % (Auto) Eos % (Auto) Baso % (Auto) Lymph # (Auto) Warren # (Auto) Eos # (Auto) Baso # (Auto) Abs Immat Gran (auto) Absolute Neuts (auto) Absolute Nucleated RBC Nucleated RBC % (auto) PT INR Anion Gap Estim Creat Clear Calc Estimated GFR POC Glucose Random Glucose Lactic Acid Calcium Magnesium Total Bilirubin Direct Bilirubin AST ALT Alkaline Phosphatase Ammonia Total Creatine Kinase Troponin I High Sens < 3.5 Total Protein Albumin Lipase TSH Urine Color YELLOW Urine Appearance CLOUDY Urine pH 7.5 Ur Specific [place] 1.010 Urine Protein NEG Urine Glucose (UA) NEG Urine Ketones NEG Urine Blood 3+ H Urine Nitrite POS H Ur Leukocyte Esterase 3+ H Urine RBC 5-9 H Urine WBC 15-29 H Ur Squamous Epith Cells NONE Urine Bacteria 4+ Urine Opiates Screen Urine Fentanyl Screen Ur Barbiturates Screen Ur Phencyclidine Scrn Ur Amphetamines Screen U Benzodiazepines Scrn Urine Cocaine Screen U Marijuana (THC) Screen Ethyl Alcohol < 10 COVID-19 (ALESSANDRA) COVID-[employer] 09/08/21 09/08/21 12:25 12:42 MCV MCH MCHC RDW Plt Count MPV Immature Gran % (Auto) Neut % (Auto) Lymph % (Auto) Warren % (Auto) Eos % (Auto) Baso % (Auto) Lymph # (Auto) Warren # (Auto) Eos # (Auto) Baso # (Auto) Abs Immat Gran (auto) Absolute Neuts (auto) Absolute Nucleated RBC Nucleated RBC % (auto) PT INR Anion Gap Estim Creat Clear Calc Estimated GFR POC Glucose 96 Random Glucose Lactic Acid Calcium Magnesium Total Bilirubin Direct Bilirubin AST ALT Alkaline Phosphatase Ammonia Total Creatine Kinase Troponin I High Sens Total Protein Albumin Lipase TSH Urine Color Urine Appearance Urine pH Ur Specific [place] Urine Protein Urine Glucose (UA) Urine Ketones Urine Blood Urine Nitrite Ur Leukocyte Esterase Urine RBC Urine WBC Ur Squamous Epith Cells Urine Bacteria Urine Opiates Screen Not Detected Urine Fentanyl Screen Not Detected Ur Barbiturates Screen Not Detected Ur Phencyclidine Scrn Not Detected Ur Amphetamines Screen Not Detected U Benzodiazepines Scrn POSITIVE H Urine Cocaine Screen Not Detected U Marijuana (THC) Screen Not Detected Ethyl Alcohol COVID-19 (ALESSANDRA) COVID-19 Clin Com Imaging Radiologist's Impressions: Impressions Head CT 09/08/21 13:04 IMPRESSION: No acute intracranial pathology. Chest X-Ray 09/08/21 13:21 IMPRESSION: No evidence for acute disease in the chest. EXAMINATION: Left humerus x-ray CLINICAL INFORMATION: Fall COMPARISON: None. TECHNIQUE: Left elbow x-ray January 2018 FINDINGS: There is an ununited displaced fracture of the distal humeral shaft. No acute fracture is seen. Joint spaces not well evaluated. Soft tissues are unremarkable. IMPRESSION: Old ununited left distal humeral shaft fracture. No acute fracture. Humerus X-Ray 09/08/21 13:21 IMPRESSION: No evidence for acute disease in the chest. EXAMINATION: Left humerus x-ray CLINICAL INFORMATION: Fall COMPARISON: None. TECHNIQUE: Left elbow x-ray January 2018 FINDINGS: There is an ununited displaced fracture of the distal humeral shaft. No acute fracture is seen. Joint spaces not well evaluated. Soft tissues are unremarkable. IMPRESSION: Old ununited left distal humeral shaft fracture. No acute fracture. Assessment and Plan (1) Physical deconditioning: Status: Acute Plan 60 yo F with a PMH of MS who is wheel chair bound and arrivals after she pressed her Life-alert button. Patient reports that her wheel chair tipped over and she was unable to get off the floor. 1. Fall vs syncope favor mechanical fall as patient denies any LOC, however -- the circumstances surrounding the fall are not fully clear monitor on tele 2. Dehydration IVF -- NS @ 100 cc/hr x 2L total repeat chem tomorrow 3. HyperCa due to #2; check AM labs tomorrow and further work up if increases of persistent 4. Pyuria / bacteruria patient has a chronic dumas cath No leukocytosis / fevers / urinary symptoms -- likely represents colonization received Rocephin/Merrem in the ED -- will hold off on further antibiotics at this time patient does not have severe sepsis at this time; in fact I do not think she has an acute infectious etiology 5. MS not in acute exacerbation continue baseline meds Full Code DVT pptx, Lovenox Quality Stroke Does the patient have a stroke diagnosis?: No VTE Prior VTE?: No VTE Risk Level:: Medical - moderate - high VTE Device Contraindication: Treatment Not Indicated VTE Drug Contraindication: N/A - Med Ordered
--- NOTE | 2021-09-08 15:15 | PHA.MEDREC ---
MED REC COMPLETE, PATIENT SELF REPORTED TAKING HIGHER DOSES OF DIAZEPAM AND CARISOPRODOL THAN WHAT IS PRESCRIBED BY HER NEUROLOGIST OFFICE Pharmacy Consult ? Medication Reconciliation Pharmacy has completed the medication reconciliation.
[2021-09-08] MEDS: 0.9 % Sodium Chloride 1,000 ML 100 ML IVCONT (15:45)
[2021-09-08] MEDS: Enoxaparin Sodium 40 MG/0.4 ML SYRINGE SUBCUT (18:24)
--- NOTE | 2021-09-08 18:34 | MHC.CM.PN ---
CM attempted to meet with pt, however, pt was sleeping and difficult to wake. CM will attempt when pt more awake. CM to follow for d/c needs.
[2021-09-08] MEDS: Zolpidem Tartrate 5 MG TABLET PO (20:50)
[2021-09-08] MEDS: Baclofen 20 MG TABLET PO (20:51)
[2021-09-08] MEDS: Gabapentin 300 MG CAPSULE PO (20:51)
[2021-09-08] MEDS: Baclofen 20 MG TABLET 40 MG PO (20:51)
[2021-09-09 03:25] VITALS: BP 114/53; PULSE 91; RESP 20; TEMP 36.6; O2SAT 96
[2021-09-09] MEDS: 0.9 % Sodium Chloride 1,000 ML 100 ML IVCONT (03:46)
[2021-09-09 06:16] LABS: Hematocrit 40.3 % (37.0-47.0); Hemoglobin 12.6 g/dl (12.0-16.0); Mean Corpuscular HGB Conc 31.3 g/dl (31.0-35.0); Mean Platelet Volume 9.6 fL (9.4-12.3); Platelet Count 328 X10*3/uL (160-400); Red Cell Distribution Width 15.1 % (11.0-16.0); White Blood Count 4.8 X10*3/uL (4.8-10.8)
[2021-09-09 06:43] LABS: Anion Gap 11 (12-20); Blood Urea Nitrogen 10 mg/dL (9-16); Calcium 8.9 mg/dL (8.4-10.2); Carbon Dioxide 28 mmol/L (22-29); Chloride 110 mmol/L (96-108); Creatinine Clr Calc Pharmacy 86.7; Estimated Glomerular Filt Rate > 60; Glucose Random 137 mg/dL (60-115); Potassium 3.9 mmol/L (3.3-5.1); Sodium 145 mmol/L (135-145)
[2021-09-09 07:08] VITALS: BP 111/70; PULSE 98; RESP 18; TEMP 36.4; O2SAT 96
[2021-09-09] MEDS: Cholecalciferol (Vitamin D3) 25 MCG TABLET PO (09:50)
[2021-09-09] MEDS: Baclofen 20 MG TABLET PO (09:50)
[2021-09-09] MEDS: Gabapentin 300 MG CAPSULE PO (09:50)
[2021-09-09] MEDS: Aspirin 81 MG TAB.CHEW PO (09:50)
--- NOTE | 2021-09-09 10:26 | MHC.CM.PN ---
met with pt who reports living mwith her husdb and receiving [employer] servcies thru [facility] for herself and 21hrs a week [facility] for her pt is w/c bound as is her husbnad she says she will need a amb home vax x 2
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
[2021-09-09 11:19] VITALS: BP 117/58; PULSE 100; RESP 17; TEMP 36.9; O2SAT 98
--- NOTE | 2021-09-09 15:02 | PC.NURSE ---
Skin assessment completed. Patient has fungal rash under bilateral breast and in bilateral groin. Patient has moisture associated skin dermatitis to buttocks. Interdry applied under breasts and in groin. Barrier cream applied to buttocks. Scattered bruising on arms.
== END 2021-09-09 14:15 | disposition home health service (06) ==
LOC: HO.ED 13:47 → HO.EDOVER 15:06 → HO.IMC 18:19
PROVIDERS: Admitting Provider Family Medicine; Emergency Provider Emergency Medicine; PCP Internal Medicine; Visit Provider Nurse Practitioner Acute Care
DX: R53.1 Weakness (principal); R53.81 Other malaise; N39.0 Urinary tract infection, site not specified; R82.71 Bacteriuria; T83.028A Displacement of other urinary catheter, initial encounter; T42.4X1A Poisoning by benzodiazepines, accidental (unintentional), initial encounter; W05.0XXA Fall from non-moving wheelchair, initial encounter; Y93.9 Activity, unspecified; Y92.003 Bedroom of unspecified non-institutional (private) residence as the place of occurrence of the external cause; Y99.8 Other external cause status; Y73.8 Miscellaneous gastroenterology and urology devices associated with adverse incidents, not elsewhere classified; R15.1 Fecal smearing; I10 Essential (primary) hypertension; E11.9 Type 2 diabetes mellitus without complications; E78.5 Hyperlipidemia, unspecified; G81.94 Hemiplegia, unspecified affecting left nondominant side; G35 Multiple sclerosis; M21.922 Unspecified acquired deformity of left upper arm; L89.321 Pressure ulcer of left buttock, stage 1; L89.311 Pressure ulcer of right buttock, stage 1; F17.210 Nicotine dependence, cigarettes, uncomplicated; F11.20 Opioid dependence, uncomplicated; Z20.822 Contact with and (suspected) exposure to COVID-19; Z99.3 Dependence on wheelchair; Z96.0 Presence of urogenital implants; Z79.82 Long term (current) use of aspirin; Z79.899 Other long term (current) drug therapy
CPT/HCPCS: 36415; 51798; 70450; 71045; 73060; 80048; 80076; 80307; 81001; 81003; 82077; 82140; 82550; 82947; 83605; 83690; 83735; 84443; 84484; 85025; 85027; 85610; 87040; 87086; 87635; 93005; 96361; 96365; 96367; 96372; 96375; 99219; 99285; C1758; J0696; J1650; J2185

== ENCOUNTER 2021-09-24 14:19 | Emergency (ER) | payer MEDICARE, SELFPAY ==
--- NOTE | ~2021-09-24 | XR_ITS ---
EXAMINATION: XR CHEST CLINICAL INFORMATION: Aspiration COMPARISON: 09/08/2021 TECHNIQUE: Frontal view of the chest was obtained. FINDINGS: The lungs are well expanded. There is no focal consolidation, edema, or effusion. No pneumothorax. The cardiomediastinal silhouette is within normal limits. No acute osseous abnormality. XR/XR chest 1V IMPRESSION: No acute pulmonary finding.
[2021-09-24 14:35] VITALS: BP 126/71; BP 150/80; PULSE 80; PULSE 84; RESP 17; TEMP 36.5; O2SAT 95; O2SAT 96; BMI 23.4
--- NOTE | 2021-09-24 15:49 | ECG_ITS ---
Test Reason : CP Blood Pressure : / mmHG Vent. Rate : 092 BPM Atrial Rate : 092 BPM P-R Int : 134 ms QRS Dur : 076 ms QT Int : 352 ms P-R-T Axes : 057 030 074 degrees QTc Int : 435 ms Normal sinus rhythm Normal ECG When compared with ECG of 08-SEP-2021 11:50, No significant change was found Referred By: Fariba Morrow Electronically Signed By:SUBHASH DENNIS MD
--- NOTE | 2021-09-24 15:51 | ED_ITS ---
HPI - Overdose General Chief Complaint: Overdose Stated Complaint: overdose Time Seen by Provider: 09/24/21 15:05 Source: EMS Mode of arrival: EMS Limitations: altered mental status History of Present Illness HPI Narrative: Patient comes to the emergency room from home. Earlier this afternoon, patient's found her unresponsive. Per EMS, patient's multiple sclerosis medications were all over the floor, it is unclear what medications and how much she took, the timing is unclear as well. Patient is very somnolent, patient states that she took her medications on purpose to end her life. Patient is antonieta ble to say what she took or how much. It is known that patient takes at home zolpidem, aspirin, diazepam, simvastatin, baclofen, carisoprodol, dimethyl fumarate/Tecfidera, gabapentin and vitamin-D (per discharge summary of 09/09/2021) Related Data Home Medications Medication Instructions Recorded Confirmed aspirin 81 mg chewable tablet 81 mg PO DAILY 06/09/21 09/24/21 baclofen 20 mg tablet 20 mg PO TID 06/09/21 09/24/21 baclofen 20 mg tablet 40 mg PO BEDTIME 06/09/21 09/24/21 diazepam 5 mg tablet 5 mg PO BID PRN 06/09/21 09/24/21 simvastatin 40 mg tablet 40 mg PO BEDTIME 06/09/21 09/24/21 zolpidem 10 mg tablet 10 mg PO BEDTIME PRN 06/09/21 09/24/21 carisoprodol 350 mg tablet (Soma) 350 mg PO TID PRN 06/23/21 09/24/21 dimethyl fumarate 240 mg 240 mg PO BID 07/14/21 09/24/21 capsule,delayed release (Tecfidera) cholecalciferol (vitamin D3) 25 25 mcg PO DAILY 09/08/21 09/24/21 mcg (1,000 unit) tablet (Vitamin D3) gabapentin 300 mg capsule 300 mg PO BID 09/08/21 09/24/21 Allergies Allergy/AdvReac Type Severity Reaction Status Date / Time No Known Allergies Allergy Verified 04/18/20 09:07 Review of Systems Review of Systems: Suicidal ideation Yes Unobtainable due to mental condition and Unobtainable due to mental status PMFSH Past Medical History Medical History COPD (chronic obstructive pulmonary disease) Diabetes Femoral distal fracture Fracture of left tibial plateau Frequent falls Hemiparesis of left nondominant side Hyperlipidemia Hypertension Left hemiparesis Left humeral fracture Multiple sclerosis Multiple sclerosis NSTEMI (non-ST elevated myocardial infarction) Physical deconditioning Polysubstance abuse Seizure disorder UTI (urinary tract infection) Weakness Surgical History No pertinent past surgical history Family History Family History Other Adopted Social History Social History Alcohol intake: never Patient Tobacco Use Status: Current everyday Tobacco user Tobacco use type: Cigarette Cigarette Packs Per Day: 0.5 Cigarettes Per Day: 10.0 Smoked in Last 30 Days: Yes Use of substances other than those prescribed or required for medical reasons: No Substance Use Type: Opiates Advance Directives: Yes Advance Directives on File: Yes Advance Directives Date on File: 04/10/20 service: No Current occupational status: retired Physical Exam Vital Signs: Vital Signs: Last Vital Signs Temp 97.8 F 09/24/21 18:43 Pulse 97 09/24/21 20:14 Resp 16 09/24/21 20:14 BP 127/67 09/24/21 20:14 Pulse Ox 96 09/24/21 20:14 BMI result Body Mass Index 23.4 Const: Other: Appearance: Very somnolent, wakes up to name, only answers yes no questions Eyes: Pupils equal, bilateral myadriasis, 5mm round and reactive to light. ENT: Pharynx normal. Neck: Normal inspection. Neck supple. No lymph nodes noted. No crepitus CVS: Normal heart rate and rhythm. Pulses normal. Normal S1 and S2 Respiratory: No respiratory distress. Breath sounds normal. No Wheezing. No rales Abdomen: Soft and nontender. No rigidity. No distention. Skin: Skin warm and dry. Normal skin color. Normal skin turgor. Extremities: No lower extremity edema. Neuro: Unable to participate in cranial nerve assessment Psych: Attempted suicide prior to arrival, only answering yes/no due to somnolence Course Course Course Narrative: Poison Control has been contacted. Other than routine labs, no further re commendations were given. For labs are pending. 18:15 labs are still pending Patient has a UTI, patient was given 1 dose of IM ceftriaxone. Patient is ready to be evaluated by [facility]. Patient is on a Section 12 Physician of sedation started at 20:00 When patient gets at this point, patient will need a prescription for a UTI MDM - Overdose Lab Data Result diagrams: 09/24/21 18:50 09/24/21 18:40 Labs: Lab Results 09/24/21 09/24/21 09/24/21 Range/Units 18:40 18:40 18:48 WBC (4.8-10.8) X10*3/uL RBC (4.20-5.50) X10*6/uL Hgb (12.0-16.0) g/dl Hct (37.0-47.0) % MCV (80.0-98.0) fL MCH (27.0-33.0) pg MCHC (31.0-35.0) g/dl RDW (11.0-16.0) % Plt Count (160-400) X10*3/uL MPV (9.4-12.3) fL Immature Gran % (Auto) (0.0-0.4) % Neut % (Auto) (45-73) % Lymph % (Auto) (20-40) % [place] % (Auto) (2-11) % Eos % (Auto) (0-4) % Baso % (Auto) (0-2) % Lymph # (Auto) (1.2-4.9) X10*3/uL [place] # (Auto) (0.1-1.2) X10*3/uL Eos # (Auto) (0.0-0.4) X10*3/uL Baso # (Auto) (0.0-0.2) X10*3/uL Abs Immat Gran (auto) (0.00-0.03) X10*3/uL Absolute Neuts (auto) (2.0-8.3) x10*3/uL Absolute Nucleated RBC (0.0-0.012) X10*3/uL Nucleated RBC % (auto) (0.0-0.2) /100WBC PT 11.0 (9.9-13.0) SEC INR 1.0 (0.9-1.1) Sodium 142 (135-145) mmol/L Potassium 4.5 (3.3-5.1) mmol/L Chloride 104 (96-108) mmol/L Carbon Dioxide 28 (22-29) mmol/L Anion Gap 15 (12-20) BUN 4 L D (9-16) mg/dL Creatinine 0.69 (0.5-1.4) mg/dL Estim Creat Clear Calc 79.1 Estimated GFR > 60 Random Glucose 88 (60-115) mg/dL Calcium 9.7 D (8.4-10.2) mg/dL Magnesium 2.0 (1.6-2.6) mg/dL Total Bilirubin 0.2 (0.0-1.0) mg/dL Direct Bilirubin < 0.2 (0.0-0.5) mg/dL AST 26 D (5-31) U/L ALT 23 (0-31) U/L Alkaline Phosphatase 90 (39-117) U/L Troponin I High Sens (<3.5-17.0) ng/L Total Protein 7.2 (6.5-8.0) g/dL Albumin 4.0 (3.5-5.0) g/dL Urine Color Urine Appearance Urine pH (5.0-8.0) Ur Specific [place] (1.005-1.025) Urine Protein (NEG-TRACE) MG/DL Urine Glucose (UA) (NEG) MG/DL Urine Ketones (NEG) MG/DL Urine Blood (NEG) Urine Nitrite (NEG) Ur Leukocyte Esterase (NEG) Urine RBC (0) /HPF Urine WBC (0-4) /HPF Ur Squamous Epith Cells /LPF Calcium Oxalate Crystal /LPF Urine Bacteria /LPF Salicylates < 5.0 L (15-30) mg/dL Urine Opiates Screen (Not Detect) Urine Fentanyl Screen (Not Detect) Acetaminophen < 1 (<30) mcg/mL Ur Barbiturates Screen (Not Detect) Ur Phencyclidine Scrn (Not Detect) Ur Amphetamines Screen (Not Detect) U Benzodiazepines Scrn (Not Detect) Urine Cocaine Screen (Not Detect) U Marijuana (THC) Screen (Not Detect) Ethyl Alcohol < 10 mg/dL COVID-19 (ALESSANDRA) (Negative) COVID-19 Clin Com 0409/24/21 09/24/21 Range/Units 18:50 18:50 18:51 WBC 6.1 (4.8-10.8) X10*3/uL RBC 5.01 (4.20-5.50) X10*6/uL Hgb 15.0 (12.0-16.0) g/dl Hct 45.8 (37.0-47.0) % MCV 91.4 (80.0-98.0) fL MCH 29.9 (27.0-33.0) pg MCHC 32.8 (31.0-35.0) g/dl RDW 14.6 (11.0-16.0) % Plt Count 326 (160-400) X10*3/uL MPV 9.6 (9.4-12.3) fL Immature Gran % (Auto) 0.3 (0.0-0.4) % Neut % (Auto) 79.8 H (45-73) % Lymph % (Auto) 9.7 L (20-40) % [place] % (Auto) 6.9 (2-11) % Eos % (Auto) 2.6 (0-4) % Baso % (Auto) 0.7 (0-2) % Lymph # (Auto) 0.6 L (1.2-4.9) X10*3/uL [place] # (Auto) 0.4 (0.1-1.2) X10*3/uL Eos # (Auto) 0.2 (0.0-0.4) X10*3/uL Baso # (Auto) 0.0 (0.0-0.2) X10*3/uL Abs Immat Gran (auto) 0.02 (0.00-0.03) X10*3/uL Absolute Neuts (auto) 4.8 (2.0-8.3) x10*3/uL Absolute Nucleated RBC 0.000 (0.0-0.012) X10*3/uL Nucleated RBC % (auto) 0.0 (0.0-0.2) /100WBC PT (9.9-13.0) SEC INR (0.9-1.1) Sodium (135-145) mmol/L Potassium (3.3-5.1) mmol/L Chloride (96-108) mmol/L Carbon Dioxide (22-29) mmol/L Anion Gap (12-20) BUN (9-16) mg/dL Creatinine (0.5-1.4) mg/dL Estim Creat Clear Calc Estimated GFR Random Glucose (60-115) mg/dL Calcium (8.4-10.2) mg/dL Magnesium (1.6-2.6) mg/dL Total Bilirubin (0.0-1.0) mg/dL Direct Bilirubin (0.0-0.5) mg/dL AST (5-31) U/L ALT (0-31) U/L Alkaline Phosphatase (39-117) U/L Troponin I High Sens < 3.5 (<3.5-17.0) ng/L Total Protein (6.5-8.0) g/dL Albumin (3.5-5.0) g/dL Urine Color YELLOW Urine Appearance CLEAR Urine pH 7.0 (5.0-8.0) Ur Specific [place] <= 1.005 (1.005-1.025) Urine Protein NEG (NEG-TRACE) MG/DL Urine Glucose (UA) NEG (NEG) MG/DL Urine Ketones NEG (NEG) MG/DL Urine Blood 3+ H (NEG) Urine Nitrite POS H (NEG) Ur Leukocyte Esterase 3+ H (NEG) Urine RBC 15-29 H (0) /HPF Urine WBC 50-75 H (0-4) /HPF Ur Squamous Epith Cells 1+ /LPF Calcium Oxalate Crystal 1+ /LPF Urine Bacteria 1+ /LPF Salicylates (15-30) mg/dL Urine Opiates Screen (Not Detect) Urine Fentanyl Screen (Not Detect) Acetaminophen (<30) mcg/mL Ur Barbiturates Screen (Not Detect) Ur Phencyclidine Scrn (Not Detect) Ur Amphetamines Screen (Not Detect) U Benzodiazepines Scrn (Not Detect) Urine Cocaine Screen (Not Detect) U Marijuana (THC) Screen (Not Detect) Ethyl Alcohol mg/dL COVID-19 (ALESSANDRA) (Negative) COVID-19 Clin Com 09/24/21 09/24/21 Range/Units 18:51 18:51 WBC (4.8-10.8) X10*3/uL RBC (4.20-5.50) X10*6/uL Hgb (12.0-16.0) g/dl Hct (37.0-47.0) % MCV (80.0-98.0) fL MCH (27.0-33.0) pg MCHC (31.0-35.0) g/dl RDW (11.0-16.0) % Plt Count (160-400) X10*3/uL MPV (9.4-12.3) fL Immature Gran % (Auto) (0.0-0.4) % Neut % (Auto) (45-73) % Lymph % (Auto) (20-40) % [place] % (Auto) (2-11) % Eos % (Auto) (0-4) % Baso % (Auto) (0-2) % Lymph # (Auto) (1.2-4.9) X10*3/uL [place] # (Auto) (0.1-1.2) X10*3/uL Eos # (Auto) (0.0-0.4) X10*3/uL Baso # (Auto) (0.0-0.2) X10*3/uL Abs Immat Gran (auto) (0.00-0.03) X10*3/uL Absolute Neuts (auto) (2.0-8.3) x10*3/uL Absolute Nucleated RBC (0.0-0.012) X10*3/uL Nucleated RBC % (auto) (0.0-0.2) /100WBC PT (9.9-13.0) SEC INR (0.9-1.1) Sodium (135-145) mmol/L Potassium (3.3-5.1) mmol/L Chloride (96-108) mmol/L Carbon Dioxide (22-29) mmol/L Anion Gap (12-20) BUN (9-16) mg/dL Creatinine (0.5-1.4) mg/dL Estim Creat Clear Calc Estimated GFR Random Glucose (60-115) mg/dL Calcium (8.4-10.2) mg/dL Magnesium (1.6-2.6) mg/dL Total Bilirubin (0.0-1.0) mg/dL Direct Bilirubin (0.0-0.5) mg/dL AST (5-31) U/L ALT (0-31) U/L Alkaline Phosphatase (39-117) U/L Troponin I High Sens (<3.5-17.0) ng/L Total Protein (6.5-8.0) g/dL Albumin (3.5-5.0) g/dL Urine Color Urine Appearance Urine pH (5.0-8.0) Ur Specific [place] (1.005-1.025) Urine Protein (NEG-TRACE) MG/DL Urine Glucose (UA) (NEG) MG/DL Urine Ketones (NEG) MG/DL Urine Blood (NEG) Urine Nitrite (NEG) Ur Leukocyte Esterase (NEG) Urine RBC (0) /HPF Urine WBC (0-4) /HPF Ur Squamous Epith Cells /LPF Calcium Oxalate Crystal /LPF Urine Bacteria /LPF Salicylates (15-30) mg/dL Urine Opiates Screen Not Detected (Not Detect) Urine Fentanyl Screen Not Detected (Not Detect) Acetaminophen (<30) mcg/mL Ur Barbiturates Screen Not Detected (Not Detect) Ur Phencyclidine Scrn Not Detected (Not Detect) Ur Amphetamines Screen Not Detected (Not Detect) U Benzodiazepines Scrn POSITIVE H (Not Detect) Urine Cocaine Screen Not Detected (Not Detect) U Marijuana (THC) Screen Not Detected (Not Detect) Ethyl Alcohol mg/dL COVID-19 (ALESSANDRA) Negative (Negative) COVID-19 Clin Com See Note Discharge Plan Discharge Clinical Impression: Drug overdose, intentional, Suicide attempt, UTI (urinary tract infection) Patient Disposition: Still a Patient Prescriptions: No Action zolpidem 10 mg Tablet 10 mg PO BEDTIME PRN (Reason: Insomnia) 0RF aspirin 81 mg Tablet,Chewable 81 mg PO DAILY 0RF diazepam 5 mg Tablet 5 mg PO BID PRN (Reason: anxiety/sleep) 0RF simvastatin 40 mg Tablet 40 mg PO BEDTIME 0RF baclofen 20 mg Tablet 20 mg PO TID 0RF baclofen 20 mg Tablet 40 mg PO BEDTIME 0RF Rx Instructions: total bedtime dose 40 mg carisoprodol [Soma] 350 mg Tablet 350 mg PO TID PRN (Reason: Muscle Spasm) 0RF dimethyl fumarate [Tecfidera] 240 mg Capsule,Delayed Release(Dr/Ec) 240 mg PO BID 0RF gabapentin 300 mg Capsule 300 mg PO BID 0RF cholecalciferol (vitamin D3) [Vitamin D3] 25 mcg (1,000 unit) Tablet 25 mcg PO DAILY 0RF
[2021-09-24 15:59] VITALS: BP 100/55; PULSE 86; RESP 14; O2SAT 100
[2021-09-24 18:43] VITALS: BP 114/69; PULSE 82; RESP 16; TEMP 36.6; O2SAT 92
[2021-09-24 18:57] LABS: MANUAL DIFF FLAG NO
[2021-09-24 18:58] LABS: Ethanol < 10 mg/dL
[2021-09-24 18:58] LABS: Basophils Percent Auto 0.7 % (0-2); Eosinophils Absolute Auto 0.2 X10*3/uL (0.0-0.4); Eosinophils Percent Auto 2.6 % (0-4); Hematocrit 45.8 % (37.0-47.0); Imm Gran Abs Auto 0.02 X10*3/uL (0.00-0.03); Imm Gran Pct Auto 0.3 % (0.0-0.4); Lymphocytes Absolute Auto 0.6 X10*3/uL (1.2-4.9); Lymphocytes Percent Auto 9.7 % (20-40); Mean Corpuscular HGB Conc 32.8 g/dl (31.0-35.0); Mean Corpuscular Hemoglobin 29.9 pg (27.0-33.0); Mean Corpuscular Volume 91.4 fL (80.0-98.0); Mean Platelet Volume 9.6 fL (9.4-12.3); Monocytes Absolute Auto 0.4 X10*3/uL (0.1-1.2); Monocytes Percent Auto 6.9 % (2-11); Neutrophils Absolute Auto 4.8 x10*3/uL (2.0-8.3); Neutrophils Percent Auto 79.8 % (45-73); Platelet Count 326 X10*3/uL (160-400); Red Blood Count 5.01 X10*6/uL (4.20-5.50); Red Cell Distribution Width 14.6 % (11.0-16.0); White Blood Count 6.1 X10*3/uL (4.8-10.8)
[2021-09-24 18:59] LABS: Appearance Urine CLEAR; Color Urine YELLOW; Glucose Urine UA NEG (NEG); Leukocyte Esterase Urine 3+ (NEG); Nitrite Urine POS (NEG); Specific Gravity - Urine <= 1.005 (1.005-1.025); UACC Culture Trigger YES; Urine Blood 3+ (NEG); Urine Ketones NEG (NEG); Urine Protein NEG (NEG-TRACE)
[2021-09-24 19:01] LABS: Alanine Aminotransferase 23 U/L (0-31); Alkaline Phosphatase 90 U/L (39-117); Anion Gap 15 (12-20); Aspartate Amino Transferase 26 U/L (5-31); Bilirubin Direct < 0.2 mg/dL (0.0-0.5); Bilirubin Total 0.2 mg/dL (0.0-1.0); Blood Urea Nitrogen 4 mg/dL (9-16); Calcium 9.7 mg/dL (8.4-10.2); Carbon Dioxide 28 mmol/L (22-29); Chloride 104 mmol/L (96-108); Creatinine Clr Calc Pharmacy 79.1; Estimated Glomerular Filt Rate > 60; Glucose Random 88 mg/dL (60-115); Potassium 4.5 mmol/L (3.3-5.1); Sodium 142 mmol/L (135-145); Total Protein 7.2 g/dL (6.5-8.0)
[2021-09-24 19:08] LABS: Bacteria Urine 1+ /LPF; Squamous Epithelial Cell Urine 1+ /LPF; WBC Urine 50-75 /HPF (0-4)
[2021-09-24 19:09] LABS: Calcium Oxalate Crystals Urine 1+ /LPF
[2021-09-24 19:14] LABS: COVID-19 Test Negative (Negative)
[2021-09-24 19:15] LABS: Acetaminophen LAB < 1 mcg/mL (<30); Salicylate < 5.0 mg/dL (15-30)
[2021-09-24 19:21] LABS: Amphetamine Screen Urine Not Detected (Not Detect); Barbiturates, Urine Not Detected (Not Detect); Benzodiazepines Screen Urine POSITIVE (Not Detect); Cannabinoid Screen Urine Not Detected (Not Detect); Cocaine Screen Urine Not Detected (Not Detect); Fentanyl, urine Not Detected (Not Detect); Opiate Screen Urine Not Detected (Not Detect); Phencyclidine Screen Urine Not Detected (Not Detect)
[2021-09-24 19:27] LABS: Troponin-I High Sensitivity < 3.5 ng/L (<3.5-17.0)
--- NOTE | 2021-09-24 19:58 | PC.NURSE ---
medications verified with via phone
[2021-09-24 20:14] VITALS: BP 127/67; PULSE 97; RESP 16; O2SAT 96
[2021-09-24] MEDS: diazePAM 5 MG TABLET PO (20:36)
[2021-09-24] MEDS: Gabapentin 300 MG CAPSULE PO (20:36)
[2021-09-24] MEDS: cefTRIAXone sodium 1 GM, Lidocaine HCl 1 % MPF 2.1 ML IM (20:36)
--- NOTE | 2021-09-24 20:58 | PC.NURSE ---
spoke to Iris with poison control, who was given update regarding pt status, lab results, and EKG results as well as plan of care
[2021-09-24 22:54] VITALS: BP 120/67; PULSE 93; RESP 15; TEMP 36.6; O2SAT 100
--- NOTE | 2021-09-25 00:22 | PC.NURSE ---
This PCT emptied 840 cc from urinary catheter
--- NOTE | 2021-09-25 05:12 | PC.NURSE ---
Nadeen from [facility] will be seen after 1100 today.
[2021-09-25 05:54] VITALS: BP 97/59; PULSE 82; RESP 15; TEMP 36.6; O2SAT 98
[2021-09-25 07:02] VITALS: BP 113/66; PULSE 88; RESP 24; TEMP 36.4; O2SAT 97
[2021-09-25] MEDS: Gabapentin 300 MG CAPSULE PO (09:55)
== END 2021-09-25 13:33 | disposition home or self-care (01) ==
PROVIDERS: Emergency Provider Emergency Medicine
DX: T50.902A Poisoning by unspecified drugs, medicaments and biological substances, intentional self-harm, initial encounter (principal); Y92.9 Unspecified place or not applicable; N39.0 Urinary tract infection, site not specified; E11.9 Type 2 diabetes mellitus without complications; I10 Essential (primary) hypertension; J44.9 Chronic obstructive pulmonary disease, unspecified; G35 Multiple sclerosis; Z79.82 Long term (current) use of aspirin; Z79.899 Other long term (current) drug therapy; Z20.822 Contact with and (suspected) exposure to COVID-19
CPT/HCPCS: 36415; 71045; 80048; 80076; 80143; 80179; 80307; 81001; 82077; 83735; 84484; 85025; 85610; 87086; 87635; 93005; 96372; 99285; J0696

== ENCOUNTER 2021-11-18 11:41 | Emergency (ER) | payer MEDICARE, OTHER, SELFPAY ==
[2021-11-18 11:47] VITALS: BP 138/84; PULSE 110; O2SAT 96
--- NOTE | 2021-11-18 11:55 | ED.FEMALEGU ---
HPI - Female Genitourinary General Chief complaint: Urogenital-Female Stated complaint: BLOOD IN URINE PER EMS Time Seen by Provider: 11/18/21 11:51 Source: patient and old records reviewed Mode of arrival: EMS Limitations: no limitations History of Present Illness MD elicited complaint: other (hematuria and dumas catheter looks gross ) Pertinent past history: recurrent UTIs (ESBL + E. Coli (S to ertapanem, macrobid, bactrim)) Onset (ago): day(s) (1.5) Location of symptoms: other (dumas catheter) Severity: moderate Vaginal discharge: none Urinary symptoms: Hematuria Exacerbating factors: none Relieving factors: none Associated symptoms: denies other symptoms Treatment prior to arrival: none Related Data Home Medications Medication Instructions Recorded Confirmed aspirin 81 mg chewable tablet 81 mg PO DAILY 06/09/21 09/24/21 baclofen 20 mg tablet 20 mg PO TID 06/09/21 09/24/21 baclofen 20 mg tablet 40 mg PO BEDTIME 06/09/21 09/24/21 diazepam 5 mg tablet 5 mg PO BID PRN anxiety/sleep 06/09/21 09/24/21 simvastatin 40 mg tablet 40 mg PO BEDTIME 06/09/21 09/24/21 zolpidem 10 mg tablet 10 mg PO BEDTIME PRN Insomnia 06/09/21 09/24/21 carisoprodol 350 mg tablet (Soma) 350 mg PO TID PRN Muscle Spasm 06/23/21 09/24/21 dimethyl fumarate 240 mg 240 mg PO BID 07/14/21 09/24/21 capsule,delayed release (Tecfidera) cholecalciferol (vitamin D3) 25 25 mcg PO DAILY 09/08/21 09/24/21 mcg (1,000 unit) tablet (Vitamin D3) gabapentin 300 mg capsule 300 mg PO BID 09/08/21 09/24/21 Previous Rx's Medication Instructions Recorded cephalexin 500 mg capsule 500 mg PO Q6H 7 days #28 caps 09/25/21 nitrofurantoin 100 mg PO BID 10 days #20 caps 11/18/21 monohydrate/macrocrystals 100 mg capsule (Macrobid) Allergies Allergy/AdvReac Type Severity Reaction Status Date / Time No Known Allergies Allergy Verified 04/18/20 09:07 Review of Systems Review of Systems: Constitutional : No Fever, No Chills ENT/Mouth : No sore throat, No Rhinorrhea Eyes: No Eye Pain, No Swelling, No Redness Cardiovascular : No Chest Pain, No SOB Respiratory : No Cough, No Sputum, No Wheezing Gastrointestinal : No Nausea, No Vomiting, No Diarrhea, No abdominal Pain Genitourinary : No Dysuria, No Urinary Frequency, pos Hematuria, Musculoskeletal : No joint pain, No Myalgias, No Joint Swelling Skin : No Skin Lesions, No rash Neuro : No Weakness, No Numbness, No Dizziness, No Headache Psych : No Anxiety/Panic, No Depression All other systems reviewed and are negative [facility] Past Medical History Attestation statement: The following information was validated with the patient. Medical History (Updated 11/18/21 @ 14:32 by Alyson Wheatley DO) COPD (chronic obstructive pulmonary disease) Diabetes Femoral distal fracture Fracture of left tibial plateau Frequent falls Hemiparesis of left nondominant side Hyperlipidemia Hypertension Left hemiparesis Left humeral fracture Multiple sclerosis NSTEMI (non-ST elevated myocardial infarction) Physical deconditioning Polysubstance abuse Seizure disorder UTI (urinary tract infection) Weakness Surgical History No pertinent past surgical history Family History Family History Other Adopted Social History Social History Alcohol intake: never Patient Tobacco Use Status: Current everyday Tobacco user Tobacco use type: Cigarette Cigarette Packs Per Day: 0.5 Cigarettes Per Day: 10.0 Substance Use Type: Opiates Advance Directives: Yes Advance Directives on File: Yes Advance Directives Date on File: 04/10/20 service: No Current occupational status: retired Physical Exam Vital Signs: Vital Signs: Last Vital Signs Temp 98 F 11/18/21 11:56 Pulse 90 11/18/21 14:27 Resp 18 11/18/21 14:27 BP 137/67 11/18/21 14:27 Pulse Ox 97 11/18/21 14:27 O2 Del Method 11/18/21 14:27 BMI result Body Mass Index 22.6 Appearance: Alert. Oriented X3. No acute distress. Eyes: Pupils equal, round and reactive to light. ENT: Pharynx normal. Neck: Normal inspection. Neck supple. CVS: Normal heart rate and rhythm. Pulses normal. Respiratory: No respiratory distress. Breath sounds normal. Abdomen: Soft and non-tender. : dumas appears old and dirty, pink orange dumas with sediment in catheter Skin: Skin warm and dry. pale skin color. Normal skin turgor. Extremities: No lower extremity edema. Neuro: Oriented X 3. diffusely weak due to MS, WC bound Course Course Course Narrative: dumas replaced - clear yellow urine no signs of hematuria VS and blood look good + UA will start on ertapenem and DC on macrobid - no vomiting, no fevers, no WBC count, neg lactic acid MDM - Female Genitourinary MDM Narrative Medical decision making narrative: 61 yo female with hx of MS WC bound, chronic indwelling dumas with ESBL + E. Coli here with c/o sediment in catheter and hematuria noted 1.5 days ago at this time will change dumas and obtain labs, cultures, UA, likely start ertapenem Lab Data Result diagrams: 11/18/21 12:06 11/18/21 12:06 Labs: Lab Results 11/18/21 11/18/21 11/18/21 Range/Units 12:06 12:06 12:06 WBC 8.2 (4.8-10.8) X10*3/uL RBC 4.76 (4.20-5.50) X10*6/uL Hgb 14.7 (12.0-16.0) g/dl Hct 44.1 (37.0-47.0) % MCV 92.6 (80.0-98.0) fL MCH 30.9 (27.0-33.0) pg MCHC 33.3 (31.0-35.0) g/dl RDW 14.6 (11.0-16.0) % Plt Count 343 (160-400) X10*3/uL MPV 9.2 L (9.4-12.3) fL Immature Gran % (Auto) 0.5 H (0.0-0.4) % Neut % (Auto) 83.3 H (45-73) % Lymph % (Auto) 6.2 L (20-40) % Blair % (Auto) 8.5 (2-11) % Eos % (Auto) 1.0 (0-4) % Baso % (Auto) 0.5 (0-2) % Lymph # (Auto) 0.5 L (1.2-4.9) X10*3/uL Blair # (Auto) 0.7 (0.1-1.2) X10*3/uL Eos # (Auto) 0.1 (0.0-0.4) X10*3/uL Baso # (Auto) 0.0 (0.0-0.2) X10*3/uL Abs Immat Gran (auto) 0.04 H (0.00-0.03) X10*3/uL Absolute Neuts (auto) 6.8 (2.0-8.3) x10*3/uL Absolute Nucleated RBC 0.000 (0.0-0.012) X10*3/uL Nucleated RBC % (auto) 0.0 (0.0-0.2) /100WBC PT (9.9-13.0) SEC INR (0.9-1.1) Sodium 143 (135-145) mmol/L Potassium 4.3 (3.3-5.1) mmol/L Chloride 105 (96-108) mmol/L Carbon Dioxide 27 (22-29) mmol/L Anion Gap 15 (12-20) BUN 13 D (9-16) mg/dL Creatinine 0.76 (0.5-1.4) mg/dL Estim Creat Clear Calc 70.9 Estimated GFR > 60 Random Glucose 102 (60-115) mg/dL Lactic Acid (0.5-2.0) mmol/L Calcium 9.6 (8.4-10.2) mg/dL Magnesium 2.2 (1.6-2.6) mg/dL Total Bilirubin 0.2 (0.0-1.0) mg/dL Direct Bilirubin < 0.2 (0.0-0.5) mg/dL AST 12 D (5-31) U/L ALT 11 (0-31) U/L Alkaline Phosphatase 88 (39-117) U/L Total Protein 7.6 (6.5-8.0) g/dL Albumin 4.4 (3.5-5.0) g/dL Urine Color Urine Appearance Urine pH (5.0-8.0) Ur Specific [place] (1.005-1.025) Urine Protein (NEG-TRACE) MG/DL Urine Glucose (UA) (NEG) MG/DL Urine Ketones (NEG) MG/DL Urine Blood (NEG) Urine Nitrite (NEG) Ur Leukocyte Esterase (NEG) COVID-19 (ALESSANDRA) Negative (Negative) COVID-19 Clin Com See Note 11/18/21 11/18/21 11/18/21 Range/Units 12:06 12:06 12:10 WBC (4.8-10.8) X10*3/uL RBC (4.20-5.50) X10*6/uL Hgb (12.0-16.0) g/dl Hct (37.0-47.0) % MCV (80.0-98.0) fL MCH (27.0-33.0) pg MCHC (31.0-35.0) g/dl RDW (11.0-16.0) % Plt Count (160-400) X10*3/uL MPV (9.4-12.3) fL Immature Gran % (Auto) (0.0-0.4) % Neut % (Auto) (45-73) % Lymph % (Auto) (20-40) % Blair % (Auto) (2-11) % Eos % (Auto) (0-4) % Baso % (Auto) (0-2) % Lymph # (Auto) (1.2-4.9) X10*3/uL Blair # (Auto) (0.1-1.2) X10*3/uL Eos # (Auto) (0.0-0.4) X10*3/uL Baso # (Auto) (0.0-0.2) X10*3/uL Abs Immat Gran (auto) (0.00-0.03) X10*3/uL Absolute Neuts (auto) (2.0-8.3) x10*3/uL Absolute Nucleated RBC (0.0-0.012) X10*3/uL Nucleated RBC % (auto) (0.0-0.2) /100WBC PT 12.2 (9.9-13.0) SEC INR 1.1 (0.9-1.1) Sodium (135-145) mmol/L Potassium (3.3-5.1) mmol/L Chloride (96-108) mmol/L Carbon Dioxide (22-29) mmol/L Anion Gap (12-20) BUN (9-16) mg/dL Creatinine (0.5-1.4) mg/dL Estim Creat Clear Calc Estimated GFR Random Glucose (60-115) mg/dL Lactic Acid 0.7 (0.5-2.0) mmol/L Calcium (8.4-10.2) mg/dL Magnesium (1.6-2.6) mg/dL Total Bilirubin (0.0-1.0) mg/dL Direct Bilirubin (0.0-0.5) mg/dL AST (5-31) U/L ALT (0-31) U/L Alkaline Phosphatase (39-117) U/L Total Protein (6.5-8.0) g/dL Albumin (3.5-5.0) g/dL Urine Color YELLOW Urine Appearance CLOUDY Urine pH 6.0 (5.0-8.0) Ur Specific [place] >= 1.030 H (1.005-1.025) Urine Protein 2+ H (NEG-TRACE) MG/DL Urine Glucose (UA) NEG (NEG) MG/DL Urine Ketones 5 (NEG) MG/DL Urine Blood 3+ H (NEG) Urine Nitrite POS H (NEG) Ur Leukocyte Esterase 2+ H (NEG) COVID-19 (ALESSANDRA) (Negative) COVID-19 Clin Com Discharge Plan Discharge Clinical Impression: UTI (urinary tract infection) Qualifiers: Urinary tract infection type: acute cystitis Hematuria presence: with hematuria Qualified Code(s): N30.01 - Acute cystitis with hematuria Patient Disposition: Home, Self-Care Instructions: Urinary Tract Infection in Women (ED), Catheter-associated Urinary Tract Infection (ED) Additional Instructions: return to ED for any worsening symptoms or concerns catheter replaced, normal WBC count, normal kidney function given IV dose of antibiotics in ED Prescriptions: New nitrofurantoin monohyd/m-cryst [Macrobid] 100 mg capsule 100 mg PO BID 10 Days Qty: 20 0RF Rx Instructions: must administer with a meal/food No Action zolpidem 10 mg Tablet 10 mg PO BEDTIME PRN (Reason: Insomnia) aspirin 81 mg Tablet,Chewable 81 mg PO DAILY diazepam 5 mg Tablet 5 mg PO BID PRN (Reason: anxiety/sleep) simvastatin 40 mg Tablet 40 mg PO BEDTIME baclofen 20 mg Tablet 20 mg PO TID baclofen 20 mg Tablet 40 mg PO BEDTIME Rx Instructions: total bedtime dose 40 mg carisoprodol [Soma] 350 mg Tablet 350 mg PO TID PRN (Reason: Muscle Spasm) dimethyl fumarate [Tecfidera] 240 mg Capsule,Delayed Release(Dr/Ec) 240 mg PO BID gabapentin 300 mg Capsule 300 mg PO BID cholecalciferol (vitamin D3) [Vitamin D3] 25 mcg (1,000 unit) Tablet 25 mcg PO DAILY cephalexin 500 mg capsule 500 mg PO Q6H 7 Days Qty: 28 0RF
[2021-11-18 11:56] VITALS: BP 133/75; PULSE 97; RESP 19; TEMP 36.6; O2SAT 95; BMI 22.6
[2021-11-18 12:20] LABS: MANUAL DIFF FLAG NO
[2021-11-18] MEDS: 0.9 % Sodium Chloride 1,000 ML 999 ML IVCONT (12:20)
[2021-11-18 12:34] LABS: Basophils Percent Auto 0.5 % (0-2); Eosinophils Absolute Auto 0.1 X10*3/uL (0.0-0.4); Hematocrit 44.1 % (37.0-47.0); Hemoglobin 14.7 g/dl (12.0-16.0); Imm Gran Abs Auto 0.04 X10*3/uL (0.00-0.03); Imm Gran Pct Auto 0.5 % (0.0-0.4); Lymphocytes Absolute Auto 0.5 X10*3/uL (1.2-4.9); Lymphocytes Percent Auto 6.2 % (20-40); Mean Corpuscular HGB Conc 33.3 g/dl (31.0-35.0); Mean Corpuscular Hemoglobin 30.9 pg (27.0-33.0); Mean Corpuscular Volume 92.6 fL (80.0-98.0); Mean Platelet Volume 9.2 fL (9.4-12.3); Monocytes Absolute Auto 0.7 X10*3/uL (0.1-1.2); Monocytes Percent Auto 8.5 % (2-11); Neutrophils Absolute Auto 6.8 x10*3/uL (2.0-8.3); Neutrophils Percent Auto 83.3 % (45-73); Platelet Count 343 X10*3/uL (160-400); Red Blood Count 4.76 X10*6/uL (4.20-5.50); Red Cell Distribution Width 14.6 % (11.0-16.0); White Blood Count 8.2 X10*3/uL (4.8-10.8)
[2021-11-18 12:37] LABS: INTERNATIONAL NORM RATIO 1.1 (0.9-1.1); Prothrombin Time 12.2 SEC (9.9-13.0)
[2021-11-18 12:44] LABS: Lactic Acid 0.7 mmol/L (0.5-2.0)
[2021-11-18 12:47] LABS: COVID-19 Test Negative (Negative); IDNOW Serial# 55D5AD1C
[2021-11-18 13:00] LABS: Alanine Aminotransferase 11 U/L (0-31); Albumin Level 4.4 g/dL (3.5-5.0); Alkaline Phosphatase 88 U/L (39-117); Anion Gap 15 (12-20); Aspartate Amino Transferase 12 U/L (5-31); Bilirubin Direct < 0.2 mg/dL (0.0-0.5); Bilirubin Total 0.2 mg/dL (0.0-1.0); Blood Urea Nitrogen 13 mg/dL (9-16); Calcium 9.6 mg/dL (8.4-10.2); Carbon Dioxide 27 mmol/L (22-29); Chloride 105 mmol/L (96-108); Creatinine Clr Calc Pharmacy 70.9; Estimated Glomerular Filt Rate > 60; Glucose Random 102 mg/dL (60-115); Magnesium 2.2 mg/dL (1.6-2.6); Potassium 4.3 mmol/L (3.3-5.1); Sodium 143 mmol/L (135-145); Total Protein 7.6 g/dL (6.5-8.0)
[2021-11-18 13:27] VITALS: BP 129/73; PULSE 89; RESP 18; O2SAT 100
[2021-11-18 14:26] LABS: Appearance Urine CLOUDY; Color Urine YELLOW; Glucose Urine UA NEG (NEG); Leukocyte Esterase Urine 2+ (NEG); Nitrite Urine POS (NEG); Specific Gravity - Urine >= 1.030 (1.005-1.025); UACC Culture Trigger YES; Urine Blood 3+ (NEG); Urine Ketones 5 MG/DL (NEG); Urine Protein 2+ MG/DL (NEG-TRACE)
[2021-11-18 14:27] VITALS: BP 137/67; PULSE 90; RESP 18; O2SAT 97
[2021-11-18 14:38] LABS: Bacteria Urine 2+ /LPF; RBC Urine TNTC /HPF (0); WBC Urine TNTC /HPF (0-4)
[2021-11-18 14:39] LABS: Calcium Oxalate Crystals Urine 1+ /LPF
[2021-11-18] MEDS: Ertapenem Sodium 1 GM in 0.9 % Sodium Chloride 50 ML IV (15:49)
== END 2021-11-18 17:17 | disposition home or self-care (01) ==
PROVIDERS: Emergency Provider Emergency Medicine
DX: N30.01 Acute cystitis with hematuria (principal); B96.20 Unspecified Escherichia coli [E. coli] as the cause of diseases classified elsewhere; Z46.6 Encounter for fitting and adjustment of urinary device; Z20.822 Contact with and (suspected) exposure to COVID-19; E11.9 Type 2 diabetes mellitus without complications; I10 Essential (primary) hypertension; E78.5 Hyperlipidemia, unspecified; Z87.440 Personal history of urinary (tract) infections; F17.200 Nicotine dependence, unspecified, uncomplicated
CPT/HCPCS: 36415; 51702; 80048; 80076; 81001; 83605; 83735; 85025; 85610; 87040; 87086; 87088; 87147; 87186; 87205; 87635; 96361; 96365; 99284; J1335

== ENCOUNTER 2021-11-24 12:00 | Emergency (ER) | payer MEDICARE, SELFPAY ==
[2021-11-24] VITALS (11 sets, daily range): BP systolic 108–140; BP diastolic 38–81; PULSE 76–125; RESP 18–28; TEMP 36.4–36.7; O2SAT 90–97; BMI 22.6
--- NOTE | ~2021-11-24 | XR_ITS ---
EXAMINATION: XR CHEST CLINICAL INFORMATION: Cough COMPARISON: Chest radiographs 09/25/2021, 09/08/2021, 07/13/2021. TECHNIQUE: Portable upright AP view of the chest was obtained. FINDINGS: Patient is slightly rotated. There is no airspace consolidation or groundglass opacity or effusion. Vascularity is normal. The costophrenic sulci are clear. Heart size normal. The hilar and mediastinal contours are unremarkable. No visible acute bony abnormality. XR/XR chest 1V IMPRESSION: Unremarkable examination.
--- NOTE | 2021-11-24 12:05 | ED.WEAKNESS ---
HPI - Weakness General Chief complaint: General Medical <Alexander Hines MD - Last Filed: 11/24/21 20:48> Stated complaint: increased weakness per [facility] <Alexander Hines MD - Last Filed: 11/24/21 20:48> Time Seen by Provider: 11/24/21 12:04 <Alexander Hines MD - Last Filed: 11/24/21 20:48> Source: EMS <Alexander Hines MD - Last Filed: 11/24/21 20:48> Mode of arrival: EMS <Alexander Hines MD - Last Filed: 11/24/21 20:48> Limitations: altered mental status <Alexander Hines MD - Last Filed: 11/24/21 20:48> History of Present Illness HPI Narrative: Patient with increased weakness, can't care for her <Alexander Hines MD - Last Filed: 11/24/21 20:48> MD Complaint: generalized weakness <Alexander Hiens MD - Last Filed: 11/24/21 20:48> Onset (ago): month(s) <Alexander Hines MD - Last Filed: 11/24/21 20:48> Duration: constant <Alexander Hines MD - Last Filed: 11/24/21 20:48> Location: generalized <Alexander Hines MD - Last Filed: 11/24/21 20:48> Severity: moderate <Alexander Hines MD - Last Filed: 11/24/21 20:48> Associated symptoms: confusion and other (cough) <Alexander Hines MD - Last Filed: 11/24/21 20:48> Related Data Home medications: Home Medications Medication Instructions Recorded Confirmed aspirin 81 mg chewable tablet 81 mg PO DAILY 06/09/21 11/24/21 baclofen 20 mg tablet 20 mg PO BEDTIME 06/09/21 11/25/21 baclofen 20 mg tablet 20 mg PO QID 06/09/21 11/25/21 diazepam 5 mg tablet 10 mg PO BEDTIME 06/09/21 11/25/21 simvastatin 40 mg tablet 40 mg PO BEDTIME 06/09/21 11/24/21 zolpidem 10 mg tablet 10 mg PO BEDTIME 06/09/21 11/24/21 carisoprodol 350 mg tablet (Soma) 350 mg PO TID PRN Muscle Spasm 06/23/21 11/24/21 cholecalciferol (vitamin D3) 25 25 mcg PO DAILY 09/08/21 11/24/21 mcg (1,000 unit) tablet (Vitamin D3) acetaminophen 325 mg tablet 650 mg PO Q6H PRN Pain 11/25/21 11/25/21 gabapentin 400 mg capsule 400 mg PO BID 11/25/21 11/25/21 ibuprofen 400 mg tablet 400 mg PO Q6H 11/25/21 11/25/21 <Alexander Hines MD - Last Filed: 11/24/21 20:48> Allergies/Adverse reactions: Allergies Allergy/AdvReac Type Severity Reaction Status Date / Time No Known Allergies Allergy Verified 04/18/20 09:07 <Alexander Hines MD - Last Filed: 11/24/21 20:48> Review of Systems Constitutional: Constitutional: Reports no additional constitutional complaints <Alexander Hines MD - Last Filed: 11/24/21 20:48> Eyes: Eyes: Reports no additional eye complaints <Alexander Hines MD - Last Filed: 11/24/21 20:48> ENT: Denies dizziness <Alexander Hines MD - Last Filed: 11/24/21 20:48> Cardiovascular: Cardiovascular: Reports no additional cardiovascular complaints <Alexander Hines MD - Last Filed: 11/24/21 20:48> Respiratory: Respiratory: Reports as per HPI <Alexander Hines MD - Last Filed: 11/24/21 20:48> Gastrointestinal: Gastrointestinal: Reports no additional gastrointestinal complaints <Alexander Hines MD - Last Filed: 11/24/21 20:48> Genitourinary: Genitourinary: Reports no additional female genitourinary complaints <Alexander Hines MD - Last Filed: 11/24/21 20:48> Musculoskeletal: Musculoskeletal: Reports no additional musculoskeletal complaints <Alexander Hines MD - Last Filed: 11/24/21 20:48> Integumentary/Breasts: Skin/Breast: Denies rash <Alexander Hines MD - Last Filed: 11/24/21 20:48> Neurologic: Reports system reviewed and no additional complaints, except as documented, Denies dizziness and Denies Sensory deficit (Neuro) <Alexander Hines MD - Last Filed: 11/24/21 20:48> Psychiatric: Psychiatric: Denies anxiety <Alexander Hines MD - Last Filed: 11/24/21 20:48> PMFSH Past Medical History Medical History: Medical History COPD (chronic obstructive pulmonary disease) Diabetes Femoral distal fracture Fracture of left tibial plateau Frequent falls Hemiparesis of left nondominant side Hyperlipidemia Hypertension Left hemiparesis Left humeral fracture Multiple sclerosis NSTEMI (non-ST elevated myocardial infarction) Physical deconditioning Polysubstance abuse Seizure disorder UTI (urinary tract infection) Weakness <Alexander Hines MD - Last Filed: 11/24/21 20:48> Surgical History: Surgical History No pertinent past surgical history <Alexander Hines MD - Last Filed: 11/24/21 20:48> Family History Family History: Family History Other Adopted <Alexander Hines MD - Last Filed: 11/24/21 20:48> Social History Social History: Social History Alcohol intake: never Patient Tobacco Use Status: Current everyday Tobacco user Tobacco use type: Cigarette Cigarette Packs Per Day: 0.5 Cigarettes Per Day: 10.0 Use of substances other than those prescribed or required for medical reasons: No Substance Use Type: Opiates Advance Directives: Yes Advance Directives on File: Yes Advance Directives Date on File: 04/10/20 service: No Current occupational status: retired <Alexander Hines MD - Last Filed: 11/24/21 20:48> Physical Exam Vital Signs: Vital Signs: Last Vital Signs Temp 98.6 F 11/27/21 08:00 Pulse 81 11/27/21 08:00 Resp 19 11/26/21 23:48 BP 118/75 11/27/21 08:00 Pulse Ox 94 11/27/21 08:00 O2 Del Method 11/27/21 08:00 O2 Flow Rate 2 11/26/21 07:45 BMI result Body Mass Index 22.6 <Alexander Hines MD - Last Filed: 11/24/21 20:48> Vital Signs: Last Vital Signs Temp 98.6 F 11/27/21 08:00 Pulse 81 11/27/21 08:00 Resp 19 11/26/21 23:48 BP 118/75 11/27/21 08:00 Pulse Ox 94 11/27/21 08:00 O2 Del Method 11/27/21 08:00 O2 Flow Rate 2 11/26/21 07:45 BMI result Body Mass Index 22.6 <DONTA Campbell - Last Filed: 11/25/21 12:21> Vital Signs: Last Vital Signs Temp 98.6 F 11/27/21 08:00 Pulse 81 11/27/21 08:00 Resp 19 11/26/21 23:48 BP 118/75 11/27/21 08:00 Pulse Ox 94 11/27/21 08:00 O2 Del Method 11/27/21 08:00 O2 Flow Rate 2 11/26/21 07:45 BMI result Body Mass Index 22.6 <Alyson Wheatley DO - Last Filed: 11/26/21 10:57> Const: Other: unkept female chronically ill, coughing <Alexander Hines MD - Last Filed: 11/24/21 20:48> Nutritional Appearance: average body habitus <Alexander Hines MD - Last Filed: 11/24/21 20:48> Orientation/consciousness: oriented to person <Alexander Hines MD - Last Filed: 11/24/21 20:48> Limitations: no limitations <Alexander Hines MD - Last Filed: 11/24/21 20:48> HEENT: Head: Yes normal to inspection <Alexander Hines MD - Last Filed: 11/24/21 20:48> Ears: external ears normal <Alexander Hines MD - Last Filed: 11/24/21 20:48> General nose exam: Normal external nose present <Alexander Hines MD - Last Filed: 11/24/21 20:48> Mouth: Normal oral and palatal mucosa present and oropharynx normal <Alexander Hines MD - Last Filed: 11/24/21 20:48> Throat: Yes posterior oropharynx normal <Alexander Hines MD - Last Filed: 11/24/21 20:48> Eyes: General: appearance normal, both eyes and all related structures <Alexander Hines MD - Last Filed: 11/24/21 20:48> Neck: Other: supple <Alexander Hines MD - Last Filed: 11/24/21 20:48> Neck: Yes normal visual inspection <Alexander Hines MD - Last Filed: 11/24/21 20:48> Chest: Chest palpation & inspection: normal inspection of the chest <Alexander Hines MD - Last Filed: 11/24/21 20:48> Resp: Other: Rhonchi left greater than right <Alexander Hines MD - Last Filed: 11/24/21 20:48> Cardio: Jugular venous distension: no JVD <Alexander Hines MD - Last Filed: 11/24/21 20:48> Rate: regular rate <Alexander Hines MD - Last Filed: 11/24/21 20:48> Rhythm: regular rhythm <Alexander Hines MD - Last Filed: 11/24/21 20:48> Heart sounds: S1 normal heart sound present and S2 normal heart sound present <Alexander Hines MD - Last Filed: 11/24/21 20:48> GI: Inspection: Yes normal to inspection <Alexander Hines MD - Last Filed: 11/24/21 20:48> Palpation (GI): Soft to palpation, nontender and No hepatosplenomegaly present <Alexander Hinse MD - Last Filed: 11/24/21 20:48> Auscultation: normal bowel sounds <Alexander Hines MD - Last Filed: 11/24/21 20:48> : General: Yes no CVA tenderness <MD [place] Hunt Last Filed: 11/24/21 20:48> Back/Spine/Pelvis: Back: no CVA tenderness <Alexander Hines MD - Last Filed: 11/24/21 20:48> Skin: General skin exam: no rashes or lesions noted <Alexander Hines MD - Last Filed: 11/24/21 20:48> Neuro: Other: legs are equally weak, left arm is significantly weaker than right (baseline) <Alexander Hines MD - Last Filed: 11/24/21 20:48> General: oriented to person <Alexander Hines MD - Last Filed: 11/24/21 20:48> Cranial nerves: Yes CN's II-XII intact bilaterally <Alexander Hines MD - Last Filed: 11/24/21 20:48> Sensory Exam: No Sensory deficit (Neuro) <Alexander Hines MD - Last Filed: 11/24/21 20:48> Extrem: General: Yes normal to inspection <Alexander Hines MD - Last Filed: 11/24/21 20:48> Psych: Other: flat affect <Alexander Hines MD - Last Filed: 11/24/21 20:48> Course Course Course Narrative: Qiana An: Patient's blood culture drawn 614 returns with 1/2 sets gram-positive cocci, organism identified coag-negative staph, 2nd organism. On strep. Most likely contaminant. Discussed with Dr Wheatley, who does not think we need to re-draw blood cultures <DONTA Campbell - Last Filed: 11/25/21 12:21> Qiana An: Patient's blood culture drawn 614 returns with 1/2 sets gram-positive cocci, organism identified coag-negative staph, 2nd organism. On strep. Most likely contaminant. Discussed with Dr Wheatley, who does not think we need to re-draw blood cultures Physician observation continued. VS stable, no acute events overnight. pending placement by CM. Patient resting comfortably, NAD <Alyson Wheatley DO - Last Filed: 11/26/21 10:57> Reevaluation(s) Reevaluation #1: patient grew ecoli sensitive to everything will continue keflex <Alexander Hines MD - Last Filed: 11/24/21 20:48> Time: 14:33 <Alexander Hines MD - Last Filed: 11/24/21 20:48> Reevaluation #2: physical therapy better, o2 sat 98% <Alexander Hines MD - Last Filed: 11/24/21 20:48> Reevaluation #3: Patient placed in physician observation at 8:40pm Patient is awaiting case management evaluation for safety. <Alexander Hines MD - Last Filed: 11/24/21 20:48> Time: 20:48 <Alexander Hines MD - Last Filed: 11/24/21 20:48> MDM - Weakness Lab Data Result diagrams: : 11/24/21 12:59 11/24/21 12:59 <Alexander Hines MD - Last Filed: 11/24/21 20:48> Labs: Lab Results 11/24/21 11/24/21 11/24/21 Range/Units 12:59 12:59 12:59 WBC 14.5 H (4.8-10.8) X10*3/uL RBC 5.10 (4.20-5.50) X10*6/uL Hgb 15.6 (12.0-16.0) g/dl Hct 47.3 H (37.0-47.0) % MCV 92.7 (80.0-98.0) fL MCH 30.6 (27.0-33.0) pg MCHC 33.0 (31.0-35.0) g/dl RDW 14.9 (11.0-16.0) % Plt Count 383 (160-400) X10*3/uL MPV 9.4 (9.4-12.3) fL Immature Gran % (Auto) 0.6 H (0.0-0.4) % Neut % (Auto) 87.3 H (45-73) % Lymph % (Auto) 4.7 L (20-40) % [place] % (Auto) 6.5 (2-11) % Eos % (Auto) 0.6 (0-4) % Baso % (Auto) 0.3 (0-2) % Lymph # (Auto) 0.7 L (1.2-4.9) X10*3/uL [place] # (Auto) 1.0 (0.1-1.2) X10*3/uL Eos # (Auto) 0.1 (0.0-0.4) X10*3/uL Baso # (Auto) 0.1 (0.0-0.2) X10*3/uL Abs Immat Gran (auto) 0.08 H (0.00-0.03) X10*3/uL Absolute Neuts (auto) 12.7 H (2.0-8.3) x10*3/uL Absolute Nucleated RBC 0.000 (0.0-0.012) X10*3/uL Nucleated RBC % (auto) 0.0 (0.0-0.2) /100WBC Sodium 140 (135-145) mmol/L Potassium 4.5 (3.3-5.1) mmol/L Chloride 101 (96-108) mmol/L Carbon Dioxide 25 (22-29) mmol/L Anion Gap 19 (12-20) BUN 15 (9-16) mg/dL Creatinine 0.77 (0.5-1.4) mg/dL Estim Creat Clear Calc 70.0 Estimated GFR > 60 POC Glucose (60-115) mg/dL Random Glucose 94 (60-115) mg/dL Calcium 9.5 (8.4-10.2) mg/dL Urine Color Urine Appearance Urine pH (5.0-8.0) Ur Specific [place] (1.005-1.025) Urine Protein (NEG-TRACE) MG/DL Urine Glucose (UA) (NEG) MG/DL Urine Ketones (NEG) MG/DL Urine Blood (NEG) Urine Nitrite (NEG) Ur Leukocyte Esterase (NEG) Urine RBC (0) /HPF Urine WBC (0-4) /HPF Ur Squamous Epith Cells /LPF Calcium Oxalate Crystal /LPF Urine Bacteria /LPF Urine Yeast /HPF COVID-19 (ALESSANDRA) Negative (Negative) COVID-19 Clin Com See Note 11/24/21 11/26/21 11/26/21 Range/Units 12:59 08:05 13:11 WBC (4.8-10.8) X10*3/uL RBC (4.20-5.50) X10*6/uL Hgb (12.0-16.0) g/dl Hct (37.0-47.0) % MCV (80.0-98.0) fL MCH (27.0-33.0) pg MCHC (31.0-35.0) g/dl RDW (11.0-16.0) % Plt Count (160-400) X10*3/uL MPV (9.4-12.3) fL Immature Gran % (Auto) (0.0-0.4) % Neut % (Auto) (45-73) % Lymph % (Auto) (20-40) % [place] % (Auto) (2-11) % Eos % (Auto) (0-4) % Baso % (Auto) (0-2) % Lymph # (Auto) (1.2-4.9) X10*3/uL [place] # (Auto) (0.1-1.2) X10*3/uL Eos # (Auto) (0.0-0.4) X10*3/uL Baso # (Auto) (0.0-0.2) X10*3/uL Abs Immat Gran (auto) (0.00-0.03) X10*3/uL Absolute Neuts (auto) (2.0-8.3) x10*3/uL Absolute Nucleated RBC (0.0-0.012) X10*3/uL Nucleated RBC % (auto) (0.0-0.2) /100WBC Sodium (135-145) mmol/L Potassium (3.3-5.1) mmol/L Chloride (96-108) mmol/L Carbon Dioxide (22-29) mmol/L Anion Gap (12-20) BUN (9-16) mg/dL Creatinine (0.5-1.4) mg/dL Estim Creat Clear Calc Estimated GFR POC Glucose 134 H 123 H (60-115) mg/dL Random Glucose (60-115) mg/dL Calcium (8.4-10.2) mg/dL Urine Color YELLOW Urine Appearance CLOUDY Urine pH 6.0 (5.0-8.0) Ur Specific [place] >= 1.030 H (1.005-1.025) Urine Protein 2+ H (NEG-TRACE) MG/DL Urine Glucose (UA) NEG (NEG) MG/DL Urine Ketones >=80 (NEG) MG/DL Urine Blood 3+ H (NEG) Urine Nitrite POS H (NEG) Ur Leukocyte Esterase 2+ H (NEG) Urine RBC 50-75 H (0) /HPF Urine WBC 76-150 H (0-4) /HPF Ur Squamous Epith Cells 2+ /LPF Calcium Oxalate Crystal TRACE /LPF Urine Bacteria 2+ /LPF Urine Yeast 2+ /HPF COVID-19 (ALESSANDRA) (Negative) COVID-19 Clin Com 11/27/21 Range/Units 07:29 WBC (4.8-10.8) X10*3/uL RBC (4.20-5.50) X10*6/uL Hgb (12.0-16.0) g/dl Hct (37.0-47.0) % MCV (80.0-98.0) fL MCH (27.0-33.0) pg MCHC (31.0-35.0) g/dl RDW (11.0-16.0) % Plt Count (160-400) X10*3/uL MPV (9.4-12.3) fL Immature Gran % (Auto) (0.0-0.4) % Neut % (Auto) (45-73) % Lymph % (Auto) (20-40) % [place] % (Auto) (2-11) % Eos % (Auto) (0-4) % Baso % (Auto) (0-2) % Lymph # (Auto) (1.2-4.9) X10*3/uL [place] # (Auto) (0.1-1.2) X10*3/uL Eos # (Auto) (0.0-0.4) X10*3/uL Baso # (Auto) (0.0-0.2) X10*3/uL Abs Immat Gran (auto) (0.00-0.03) X10*3/uL Absolute Neuts (auto) (2.0-8.3) x10*3/uL Absolute Nucleated RBC (0.0-0.012) X10*3/uL Nucleated RBC % (auto) (0.0-0.2) /100WBC Sodium (135-145) mmol/L Potassium (3.3-5.1) mmol/L Chloride (96-108) mmol/L Carbon Dioxide (22-29) mmol/L Anion Gap (12-20) BUN (9-16) mg/dL Creatinine (0.5-1.4) mg/dL Estim Creat Clear Calc Estimated GFR POC Glucose 114 (60-115) mg/dL Random Glucose (60-115) mg/dL Calcium (8.4-10.2) mg/dL Urine Color Urine Appearance Urine pH (5.0-8.0) Ur Specific [place] (1.005-1.025) Urine Protein (NEG-TRACE) MG/DL Urine Glucose (UA) (NEG) MG/DL Urine Ketones (NEG) MG/DL Urine Blood (NEG) Urine Nitrite (NEG) Ur Leukocyte Esterase (NEG) Urine RBC (0) /HPF Urine WBC (0-4) /HPF Ur Squamous Epith Cells /LPF Calcium Oxalate Crystal /LPF Urine Bacteria /LPF Urine Yeast /HPF COVID-19 (ALESSANDRA) (Negative) COVID-19 Clin Com <Alexander Hines MD - Last Filed: 11/24/21 20:48> Lab Results 11/24/21 11/24/21 11/24/21 Range/Units 12:59 12:59 12:59 WBC 14.5 H (4.8-10.8) X10*3/uL RBC 5.10 (4.20-5.50) X10*6/uL Hgb 15.6 (12.0-16.0) g/dl Hct 47.3 H (37.0-47.0) % MCV 92.7 (80.0-98.0) fL MCH 30.6 (27.0-33.0) pg MCHC 33.0 (31.0-35.0) g/dl RDW 14.9 (11.0-16.0) % Plt Count 383 (160-400) X10*3/uL MPV 9.4 (9.4-12.3) fL Immature Gran % (Auto) 0.6 H (0.0-0.4) % Neut % (Auto) 87.3 H (45-73) % Lymph % (Auto) 4.7 L (20-40) % [place] % (Auto) 6.5 (2-11) % Eos % (Auto) 0.6 (0-4) % Baso % (Auto) 0.3 (0-2) % Lymph # (Auto) 0.7 L (1.2-4.9) X10*3/uL [place] # (Auto) 1.0 (0.1-1.2) X10*3/uL Eos # (Auto) 0.1 (0.0-0.4) X10*3/uL Baso # (Auto) 0.1 (0.0-0.2) X10*3/uL Abs Immat Gran (auto) 0.08 H (0.00-0.03) X10*3/uL Absolute Neuts (auto) 12.7 H (2.0-8.3) x10*3/uL Absolute Nucleated RBC 0.000 (0.0-0.012) X10*3/uL Nucleated RBC % (auto) 0.0 (0.0-0.2) /100WBC Sodium 140 (135-145) mmol/L Potassium 4.5 (3.3-5.1) mmol/L Chloride 101 (96-108) mmol/L Carbon Dioxide 25 (22-29) mmol/L Anion Gap 19 (12-20) BUN 15 (9-16) mg/dL Creatinine 0.77 (0.5-1.4) mg/dL Estim Creat Clear Calc 70.0 Estimated GFR > 60 POC Glucose (60-115) mg/dL Random Glucose 94 (60-115) mg/dL Calcium 9.5 (8.4-10.2) mg/dL Urine Color Urine Appearance Urine pH (5.0-8.0) Ur Specific [place] (1.005-1.025) Urine Protein (NEG-TRACE) MG/DL Urine Glucose (UA) (NEG) MG/DL Urine Ketones (NEG) MG/DL Urine Blood (NEG) Urine Nitrite (NEG) Ur Leukocyte Esterase (NEG) Urine RBC (0) /HPF Urine WBC (0-4) /HPF Ur Squamous Epith Cells /LPF Calcium Oxalate Crystal /LPF Urine Bacteria /LPF Urine Yeast /HPF COVID-19 (ALESSANDRA) Negative (Negative) COVID-19 Clin Com See Note 11/24/21 11/26/21 11/26/21 Range/Units 12:59 08:05 13:11 WBC (4.8-10.8) X10*3/uL RBC (4.20-5.50) X10*6/uL Hgb (12.0-16.0) g/dl Hct (37.0-47.0) % MCV (80.0-98.0) fL MCH (27.0-33.0) pg MCHC (31.0-35.0) g/dl RDW (11.0-16.0) % Plt Count (160-400) X10*3/uL MPV (9.4-12.3) fL Immature Gran % (Auto) (0.0-0.4) % Neut % (Auto) (45-73) % Lymph % (Auto) (20-40) % [place] % (Auto) (2-11) % Eos % (Auto) (0-4) % Baso % (Auto) (0-2) % Lymph # (Auto) (1.2-4.9) X10*3/uL [place] # (Auto) (0.1-1.2) X10*3/uL Eos # (Auto) (0.0-0.4) X10*3/uL Baso # (Auto) (0.0-0.2) X10*3/uL Abs Immat Gran (auto) (0.00-0.03) X10*3/uL Absolute Neuts (auto) (2.0-8.3) x10*3/uL Absolute Nucleated RBC (0.0-0.012) X10*3/uL Nucleated RBC % (auto) (0.0-0.2) /100WBC Sodium (135-145) mmol/L Potassium (3.3-5.1) mmol/L Chloride (96-108) mmol/L Carbon Dioxide (22-29) mmol/L Anion Gap (12-20) BUN (9-16) mg/dL Creatinine (0.5-1.4) mg/dL Estim Creat Clear Calc Estimated GFR POC Glucose 134 H 123 H (60-115) mg/dL Random Glucose (60-115) mg/dL Calcium (8.4-10.2) mg/dL Urine Color YELLOW Urine Appearance CLOUDY Urine pH 6.0 (5.0-8.0) Ur Specific [place] >= 1.030 H (1.005-1.025) Urine Protein 2+ H (NEG-TRACE) MG/DL Urine Glucose (UA) NEG (NEG) MG/DL Urine Ketones >=80 (NEG) MG/DL Urine Blood 3+ H (NEG) Urine Nitrite POS H (NEG) Ur Leukocyte Esterase 2+ H (NEG) Urine RBC 50-75 H (0) /HPF Urine WBC 76-150 H (0-4) /HPF Ur Squamous Epith Cells 2+ /LPF Calcium Oxalate Crystal TRACE /LPF Urine Bacteria 2+ /LPF Urine Yeast 2+ /HPF COVID-19 (ALESSANDRA) (Negative) COVID-19 Clin Com 11/27/21 Range/Units 07:29 WBC (4.8-10.8) X10*3/uL RBC (4.20-5.50) X10*6/uL Hgb (12.0-16.0) g/dl Hct (37.0-47.0) % MCV (80.0-98.0) fL MCH (27.0-33.0) pg MCHC (31.0-35.0) g/dl RDW (11.0-16.0) % Plt Count (160-400) X10*3/uL MPV (9.4-12.3) fL Immature Gran % (Auto) (0.0-0.4) % Neut % (Auto) (45-73) % Lymph % (Auto) (20-40) % [place] % (Auto) (2-11) % Eos % (Auto) (0-4) % Baso % (Auto) (0-2) % Lymph # (Auto) (1.2-4.9) X10*3/uL [place] # (Auto) (0.1-1.2) X10*3/uL Eos # (Auto) (0.0-0.4) X10*3/uL Baso # (Auto) (0.0-0.2) X10*3/uL Abs Immat Gran (auto) (0.00-0.03) X10*3/uL Absolute Neuts (auto) (2.0-8.3) x10*3/uL Absolute Nucleated RBC (0.0-0.012) X10*3/uL Nucleated RBC % (auto) (0.0-0.2) /100WBC Sodium (135-145) mmol/L Potassium (3.3-5.1) mmol/L Chloride (96-108) mmol/L Carbon Dioxide (22-29) mmol/L Anion Gap (12-20) BUN (9-16) mg/dL Creatinine (0.5-1.4) mg/dL Estim Creat Clear Calc Estimated GFR POC Glucose 114 (60-115) mg/dL Random Glucose (60-115) mg/dL Calcium (8.4-10.2) mg/dL Urine Color Urine Appearance Urine pH (5.0-8.0) Ur Specific [place] (1.005-1.025) Urine Protein (NEG-TRACE) MG/DL Urine Glucose (UA) (NEG) MG/DL Urine Ketones (NEG) MG/DL Urine Blood (NEG) Urine Nitrite (NEG) Ur Leukocyte Esterase (NEG) Urine RBC (0) /HPF Urine WBC (0-4) /HPF Ur Squamous Epith Cells /LPF Calcium Oxalate Crystal /LPF Urine Bacteria /LPF Urine Yeast /HPF COVID-19 (ALESSANDRA) (Negative) COVID-19 Clin Com <DONTA Campbell - Last Filed: 11/25/21 12:21> Lab Results 11/24/21 11/24/21 11/24/21 Range/Units 12:59 12:59 12:59 WBC 14.5 H (4.8-10.8) X10*3/uL RBC 5.10 (4.20-5.50) X10*6/uL Hgb 15.6 (12.0-16.0) g/dl Hct 47.3 H (37.0-47.0) % MCV 92.7 (80.0-98.0) fL MCH 30.6 (27.0-33.0) pg MCHC 33.0 (31.0-35.0) g/dl RDW 14.9 (11.0-16.0) % Plt Count 383 (160-400) X10*3/uL MPV 9.4 (9.4-12.3) fL Immature Gran % (Auto) 0.6 H (0.0-0.4) % Neut % (Auto) 87.3 H (45-73) % Lymph % (Auto) 4.7 L (20-40) % [place] % (Auto) 6.5 (2-11) % Eos % (Auto) 0.6 (0-4) % Baso % (Auto) 0.3 (0-2) % Lymph # (Auto) 0.7 L (1.2-4.9) X10*3/uL [place] # (Auto) 1.0 (0.1-1.2) X10*3/uL Eos # (Auto) 0.1 (0.0-0.4) X10*3/uL Baso # (Auto) 0.1 (0.0-0.2) X10*3/uL Abs Immat Gran (auto) 0.08 H (0.00-0.03) X10*3/uL Absolute Neuts (auto) 12.7 H (2.0-8.3) x10*3/uL Absolute Nucleated RBC 0.000 (0.0-0.012) X10*3/uL Nucleated RBC % (auto) 0.0 (0.0-0.2) /100WBC Sodium 140 (135-145) mmol/L Potassium 4.5 (3.3-5.1) mmol/L Chloride 101 (96-108) mmol/L Carbon Dioxide 25 (22-29) mmol/L Anion Gap 19 (12-20) BUN 15 (9-16) mg/dL Creatinine 0.77 (0.5-1.4) mg/dL Estim Creat Clear Calc 70.0 Estimated GFR > 60 POC Glucose (60-115) mg/dL Random Glucose 94 (60-115) mg/dL Calcium 9.5 (8.4-10.2) mg/dL Urine Color Urine Appearance Urine pH (5.0-8.0) Ur Specific [place] (1.005-1.025) Urine Protein (NEG-TRACE) MG/DL Urine Glucose (UA) (NEG) MG/DL Urine Ketones (NEG) MG/DL Urine Blood (NEG) Urine Nitrite (NEG) Ur Leukocyte Esterase (NEG) Urine RBC (0) /HPF Urine WBC (0-4) /HPF Ur Squamous Epith Cells /LPF Calcium Oxalate Crystal /LPF Urine Bacteria /LPF Urine Yeast /HPF COVID-19 (ALESSANDRA) Negative (Negative) COVID-19 Clin Com See Note 11/24/21 11/26/21 11/26/21 Range/Units 12:59 08:05 13:11 WBC (4.8-10.8) X10*3/uL RBC (4.20-5.50) X10*6/uL Hgb (12.0-16.0) g/dl Hct (37.0-47.0) % MCV (80.0-98.0) fL MCH (27.0-33.0) pg MCHC (31.0-35.0) g/dl RDW (11.0-16.0) % Plt Count (160-400) X10*3/uL MPV (9.4-12.3) fL Immature Gran % (Auto) (0.0-0.4) % Neut % (Auto) (45-73) % Lymph % (Auto) (20-40) % [place] % (Auto) (2-11) % Eos % (Auto) (0-4) % Baso % (Auto) (0-2) % Lymph # (Auto) (1.2-4.9) X10*3/uL [place] # (Auto) (0.1-1.2) X10*3/uL Eos # (Auto) (0.0-0.4) X10*3/uL Baso # (Auto) (0.0-0.2) X10*3/uL Abs Immat Gran (auto) (0.00-0.03) X10*3/uL Absolute Neuts (auto) (2.0-8.3) x10*3/uL Absolute Nucleated RBC (0.0-0.012) X10*3/uL Nucleated RBC % (auto) (0.0-0.2) /100WBC Sodium (135-145) mmol/L Potassium (3.3-5.1) mmol/L Chloride (96-108) mmol/L Carbon Dioxide (22-29) mmol/L Anion Gap (12-20) BUN (9-16) mg/dL Creatinine (0.5-1.4) mg/dL Estim Creat Clear Calc Estimated GFR POC Glucose 134 H 123 H (60-115) mg/dL Random Glucose (60-115) mg/dL Calcium (8.4-10.2) mg/dL Urine Color YELLOW Urine Appearance CLOUDY Urine pH 6.0 (5.0-8.0) Ur Specific [place] >= 1.030 H (1.005-1.025) Urine Protein 2+ H (NEG-TRACE) MG/DL Urine Glucose (UA) NEG (NEG) MG/DL Urine Ketones >=80 (NEG) MG/DL Urine Blood 3+ H (NEG) Urine Nitrite POS H (NEG) Ur Leukocyte Esterase 2+ H (NEG) Urine RBC 50-75 H (0) /HPF Urine WBC 76-150 H (0-4) /HPF Ur Squamous Epith Cells 2+ /LPF Calcium Oxalate Crystal TRACE /LPF Urine Bacteria 2+ /LPF Urine Yeast 2+ /HPF COVID-19 (ALESSANDRA) (Negative) COVID-19 Clin Com 11/27/21 Range/Units 07:29 WBC (4.8-10.8) X10*3/uL RBC (4.20-5.50) X10*6/uL Hgb (12.0-16.0) g/dl Hct (37.0-47.0) % MCV (80.0-98.0) fL MCH (27.0-33.0) pg MCHC (31.0-35.0) g/dl RDW (11.0-16.0) % Plt Count (160-400) X10*3/uL MPV (9.4-12.3) fL Immature Gran % (Auto) (0.0-0.4) % Neut % (Auto) (45-73) % Lymph % (Auto) (20-40) % [place] % (Auto) (2-11) % Eos % (Auto) (0-4) % Baso % (Auto) (0-2) % Lymph # (Auto) (1.2-4.9) X10*3/uL [place] # (Auto) (0.1-1.2) X10*3/uL Eos # (Auto) (0.0-0.4) X10*3/uL Baso # (Auto) (0.0-0.2) X10*3/uL Abs Immat Gran (auto) (0.00-0.03) X10*3/uL Absolute Neuts (auto) (2.0-8.3) x10*3/uL Absolute Nucleated RBC (0.0-0.012) X10*3/uL Nucleated RBC % (auto) (0.0-0.2) /100WBC Sodium (135-145) mmol/L Potassium (3.3-5.1) mmol/L Chloride (96-108) mmol/L Carbon Dioxide (22-29) mmol/L Anion Gap (12-20) BUN (9-16) mg/dL Creatinine (0.5-1.4) mg/dL Estim Creat Clear Calc Estimated GFR POC Glucose 114 (60-115) mg/dL Random Glucose (60-115) mg/dL Calcium (8.4-10.2) mg/dL Urine Color Urine Appearance Urine pH (5.0-8.0) Ur Specific [place] (1.005-1.025) Urine Protein (NEG-TRACE) MG/DL Urine Glucose (UA) (NEG) MG/DL Urine Ketones (NEG) MG/DL Urine Blood (NEG) Urine Nitrite (NEG) Ur Leukocyte Esterase (NEG) Urine RBC (0) /HPF Urine WBC (0-4) /HPF Ur Squamous Epith Cells /LPF Calcium Oxalate Crystal /LPF Urine Bacteria /LPF Urine Yeast /HPF COVID-19 (ALESSANDRA) (Negative) COVID-19 Clin Com <Alyson Wheatley DO - Last Filed: 11/26/21 10:57> Imaging Data Chest x-ray: Radiologist's impression: FINDINGS: Patient is slightly rotated. There is no airspace consolidation or groundglass opacity or effusion. Vascularity is normal. The costophrenic sulci are clear. Heart size normal. The hilar and mediastinal contours are unremarkable. No visible acute bony abnormality. XR/XR chest 1V IMPRESSION: Unremarkable examination. ? <Alexander Hines MD - Last Filed: 11/24/21 20:48> Discharge Plan Discharge Clinical Impression: Weakness <Alexander Hines MD - Last Filed: 11/24/21 20:48> Prescriptions: No Action zolpidem 10 mg Tablet 10 mg PO BEDTIME aspirin 81 mg Tablet,Chewable 81 mg PO DAILY diazepam 5 mg Tablet 10 mg PO BEDTIME simvastatin 40 mg Tablet 40 mg PO BEDTIME baclofen 20 mg Tablet 20 mg PO QID baclofen 20 mg Tablet 20 mg PO BEDTIME Rx Instructions: total bedtime dose 40 mg carisoprodol [Soma] 350 mg Tablet 350 mg PO TID PRN (Reason: Muscle Spasm) acetaminophen 325 mg Tablet 650 mg PO Q6H PRN (Reason: Pain) gabapentin 400 mg Capsule 400 mg PO BID ibuprofen 400 mg Tablet 400 mg PO Q6H cholecalciferol (vitamin D3) [Vitamin D3] 25 mcg (1,000 unit) Tablet 25 mcg PO DAILY <Alexander Hines MD - Last Filed: 11/24/21 20:48>
[2021-11-24] MEDS: Albuterol/Iprat 2.5/0.5MG 3 ML AMPUL.NEB INHALE (12:31)
[2021-11-24 13:04] LABS: MANUAL DIFF FLAG NO
[2021-11-24 13:06] LABS: Appearance Urine CLOUDY; Basophils Absolute Auto 0.1 X10*3/uL (0.0-0.2); Basophils Percent Auto 0.3 % (0-2); Color Urine YELLOW; Eosinophils Absolute Auto 0.1 X10*3/uL (0.0-0.4); Eosinophils Percent Auto 0.6 % (0-4); Glucose Urine UA NEG (NEG); Hematocrit 47.3 % (37.0-47.0); Hemoglobin 15.6 g/dl (12.0-16.0); Imm Gran Abs Auto 0.08 X10*3/uL (0.00-0.03); Imm Gran Pct Auto 0.6 % (0.0-0.4); Leukocyte Esterase Urine 2+ (NEG); Lymphocytes Absolute Auto 0.7 X10*3/uL (1.2-4.9); Lymphocytes Percent Auto 4.7 % (20-40); Mean Corpuscular Hemoglobin 30.6 pg (27.0-33.0); Mean Corpuscular Volume 92.7 fL (80.0-98.0); Mean Platelet Volume 9.4 fL (9.4-12.3); Monocytes Percent Auto 6.5 % (2-11); Neutrophils Absolute Auto 12.7 x10*3/uL (2.0-8.3); Neutrophils Percent Auto 87.3 % (45-73); Nitrite Urine POS (NEG); Platelet Count 383 X10*3/uL (160-400); Red Cell Distribution Width 14.9 % (11.0-16.0); Specific Gravity - Urine >= 1.030 (1.005-1.025); UACC Culture Trigger YES; Urine Blood 3+ (NEG); Urine Ketones >=80 MG/DL (NEG); Urine Protein 2+ MG/DL (NEG-TRACE); White Blood Count 14.5 X10*3/uL (4.8-10.8)
[2021-11-24 13:19] LABS: Anion Gap 19 (12-20); Blood Urea Nitrogen 15 mg/dL (9-16); Calcium 9.5 mg/dL (8.4-10.2); Carbon Dioxide 25 mmol/L (22-29); Chloride 101 mmol/L (96-108); Estimated Glomerular Filt Rate > 60; Glucose Random 94 mg/dL (60-115); Potassium 4.5 mmol/L (3.3-5.1); Sodium 140 mmol/L (135-145)
[2021-11-24 13:20] LABS: COVID-19 Test Negative (Negative)
--- NOTE | 2021-11-24 13:39 | PC.NURSE ---
Addendum entered by Yong Choi 11/24/21 13:46: Donny made aware of patient being out on 2L Original Note: Patient sating in mid 80s, patient given 2L o2 nasal cannula.
[2021-11-24 13:59] LABS: Squamous Epithelial Cell Urine 2+ /LPF
[2021-11-24 14:00] LABS: Calcium Oxalate Crystals Urine TRACE /LPF
[2021-11-24 14:02] LABS: Bacteria Urine 2+ /LPF; RBC Urine 50-75 /HPF (0)
--- NOTE | 2021-11-24 14:26 | MHC.CM.ED ---
Addendum entered by Fabiola Russo 11/24/21 14:33: MD has placed a PT eval order: CXR still pending Original Note: Received assessment for d/c needs: pt presents to ED with weakness: has audible rhonchi and was satting in the 80's now on O2. In addition, pt has +UTI findings and has a dumas in place and elevated WBC. CXR pending. ? needing OBS/INPT admission. Pt resides at home with spouse who reportedly cannot care for pt any longer. Pt states she has a HAND ROLLER who assists with ADL's but cannot recall the agency. No equipment used including O2. Pt receptive to placement if she needs it. Will wait for MD and CXR results. Informed ED MD that pt will need a PT eval if the CXR is negative for placement and insurance authorization. CM to follow
[2021-11-24] MEDS: cephALEXin 500 MG CAPSULE PO ×2 (15:11→22:14)
[2021-11-24] MEDS: Albuterol Sulfate (0.083%) 2.5 MG/3 ML VIAL.NEB 7.5 MG INHALE (15:15)
--- NOTE | 2021-11-24 15:56 | PC.NURSE ---
Dr. Hines made aware of patients sats and increased heart rate.
--- NOTE | 2021-11-24 16:53 | PC.NURSE ---
Pharmacy notified about med rec
--- NOTE | 2021-11-24 19:09 | MHC.CM.ED ---
Addendum entered by Leonor Watson 11/24/21 19:25: , Otoniel called CM regarding referrals. Concerned about finances. Explained that primary insurance is [employer], not VA. Otoniel asked about bed offers; explained that referrals were placed, but would not be reviewed until tomorrow morning. Otoniel acknowledges understanding. Original Note: Pt lives with , who has had a stroke and cannot care for her per . Pt uses a wheelchair and electric scooter. Vax x2/Moderna. ANo booster. Pt has [employer] Medicare. Pt VA insurance is only for medications. 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 Pt has no transportation and uses either an ambulance or a chair van. [facility] [place] mails medications to them. Pt sees Dr. Dobbins at [facility]. Pt states she has [employer], 2 hours/5 days per week from [place]. Reviewed PT recommendations for STR. Pt is agreeable. Requested CM speak with her . CM spoke with pt /HCP Otoniel Proshante ([phone]) and reviewed plan of care. Agreeable with STR. Requests [facility] as first choice. Then local facilities in [place]/. Does not want [facility]. Pt agreeable with choices for STR. Both and pt understand that referrals will be placed, but CM will not receive any offers until the morning. 6 referrals placed. CM to follow for d/c plans.
[2021-11-25] VITALS (7 sets, daily range): BP systolic 103–133; BP diastolic 48–60; PULSE 81–97; RESP 14–20; TEMP 36.5–36.6; O2SAT 93–97
[2021-11-25] MEDS: cephALEXin 500 MG CAPSULE PO ×4 (07:49→20:39)
--- NOTE | 2021-11-25 08:23 | MHC.CM.ED ---
Addendum entered by Maritza Pace 11/25/21 10:20: Patient is active with [facility]. Copy of med list obtained from their agency. [facility] is only facility able to offer a bed at this time. Patient is agreeable. [facility] has been asked to obtain insurance auth. Continue to monitor for d/c needs. Original Note: Patient remains in ER. [facility] and [facility] are unable to offer beds. [facility] is 1[facility] choice. Clincial updates sent to facilities still following patient: [facility], [facility] [place], [facility] and [facility]. Continue to monitor for d/c needs.
--- NOTE | 2021-11-25 09:42 | PHA.MEDREC ---
Pharmacy Consult ? Medication Reconciliation Pharmacy has completed the medication reconciliation. Thanh spoke to patient yesterday. Today received a list from [facility] to confirm meds. Alicia Thomas, OrlinD
--- NOTE | 2021-11-25 11:19 | MHC.CM.ED ---
Addendum entered by Maritza Pace 11/25/21 14:52: Per Diane at [facility], patient does not screen in for a level 2, because the medication overdose in September was not related to mental health issues. She took two doses of her Baclofen and Valium, instead of 1 unintentionally. Zoya at [facility] aware. Still waiting for insurance auth. Original Note: Patient will need [facility] level 2 exemption letter. Level 1 submitted with info to [facility]. Continue to monitor for d/c needs.
--- NOTE | 2021-11-25 13:23 | MHC.CARE ---
Pt is alert and oriented x4 and is assessed for risk in her room in the Main ED upon request of Case Management.? Pt is dressed in hospital attire and watching TV at the time of the risk assessment.? She is engaged and pleasant.? Her eye contact and speech are unremarkable, her thought process appears linear.? She reports good appetite and sleep; her mood is described as ?Ok?.? She demonstrates a wide range of affect.? She denies AVH, HI, SI, , and self-harm urges.? She denies any hx of the above as well as denying any hx of mental illness dx.? She does not appear delusional or experiencing symptoms of psychosis. Pt does not appear to be a risk to her or others at this time.
--- NOTE | 2021-11-25 20:04 | MHC.CM.ED ---
Pt ?HCP Otoniel called for an update. [facility] has offered a bed and authorization is pending. Pt will hopefully d/c tomorrow. CM will follow for d/c needs.
--- NOTE | 2021-11-25 20:41 | PC.NURSE ---
Pt found in room with NC dislodged from nose; O2 sat found to be 91-92% on RA. NC reinserted, O2 sat improved to 97% with O2 at 2 L/min. Pt denied any SOB, pt resting comfortably at this time.
[2021-11-26 00:06] VITALS: BP 112/74; PULSE 86; RESP 16; O2SAT 97
--- NOTE | 2021-11-26 02:26 | PC.NURSE ---
PATIENT WAS SOILED ,CARE GIVEN LINEN CHANGE PATIENT REPOSITION WITH PILLOW UNDER LEFT ARM AND PILLOW UNDER FEET ,PATIENT REQUESTED ANABELA JESUS . PATIENT IS EATING CHIPS AND WATCHING TELEVISION .
[2021-11-26] MEDS: Baclofen 20 MG TABLET PO ×2 (02:36)
--- NOTE | 2021-11-26 02:38 | PC.NURSE ---
medicated per aug. Notified DAVID Gibson.
[2021-11-26 06:00] VITALS: BP 100/43; PULSE 82; RESP 16; TEMP 36.6; O2SAT 98
--- NOTE | 2021-11-26 06:14 | PC.NURSE ---
PATIENT RUBIO OUTPUT WAS 500 ML .
[2021-11-26 07:45] VITALS: BP 101/48; PULSE 84; RESP 17; O2SAT 96
[2021-11-26 08:08] LABS: Glucose, Whole Blood 134 mg/dL (60-115)
[2021-11-26] MEDS: cephALEXin 500 MG CAPSULE PO ×4 (10:34→20:17)
--- NOTE | 2021-11-26 10:38 | PC.NURSE ---
Pt A&Ox3, lungs diminished in the bases, pt offers no complaints of pain, awaiting transport to [place] [facility] draining clear yellow urine at this time. Call silverio within reach, will continue to monitor.
[2021-11-26 11:58] VITALS: BP 116/58; PULSE 88; RESP 18; O2SAT 94
[2021-11-26 13:13] LABS: Glucose, Whole Blood 123 mg/dL (60-115)
--- NOTE | 2021-11-26 16:11 | MHC.CM.ED ---
Patient remains in ER. [facility]. Continue to monitor for d/c needs.
--- NOTE | 2021-11-26 16:30 | MHC.CM.ED ---
Awaiting insurance auth. Both and patient are aware that we are waiting for the insurance company to approve her therapy. Pt has a bed at [facility]. CM to follow for d/c needs.
[2021-11-26 23:48] VITALS: BP 98/49; PULSE 86; RESP 19; O2SAT 92
[2021-11-27 07:33] LABS: Glucose, Whole Blood 114 mg/dL (60-115)
[2021-11-27 08:00] VITALS: BP 118/75; PULSE 81; TEMP 37; O2SAT 94
--- NOTE | 2021-11-27 08:30 | PC.NURSE ---
This real estate underwriter along with DAVID Guzmán provided incontinence care to this pt. Pt had large bowel movement, now clean and dry. Marshall catheter emptied with 750 ml of pale yellow urine. Point of care completed prior to breakfast, result 114. Pt provided with breakfast and was repositioned for comfort.
[2021-11-27] MEDS: cephALEXin 500 MG CAPSULE PO ×2 (10:20→14:07)
--- NOTE | 2021-11-27 12:54 | MHC.CM.ED ---
Patient remains in ER. Insurance auth has been obtained by [facility]. Patient can leave at 2pm. [facility] booked. Med nec with chart. Patient, Arielle Frederick RN and Livia LONGO aware. Continue to monitor for d/c needs.
[2021-11-27] MEDS: Baclofen 20 MG TABLET PO (14:08)
[2021-11-27] MEDS: Ibuprofen 400 MG TABLET PO (14:08)
--- NOTE | 2021-11-27 14:34 | PC.NURSE ---
Grad Nurse Barton [facility].
== END 2021-11-27 14:21 | disposition skilled nursing facility (03) ==
PROVIDERS: Emergency Provider Emergency Medicine; PCP Internal Medicine
DX: R05.9 Cough, unspecified (principal); R41.82 Altered mental status, unspecified; N39.0 Urinary tract infection, site not specified; F17.210 Nicotine dependence, cigarettes, uncomplicated; Z71.6 Tobacco abuse counseling; Z20.822 Contact with and (suspected) exposure to COVID-19; Z79.899 Other long term (current) drug therapy
CPT/HCPCS: 71045; 80048; 81001; 82947; 85025; 87086; 87088; 87186; 87635; 94640; 97163; 99285

== ENCOUNTER 2021-12-10 12:18 | Emergency (ER) | payer MEDICARE, OTHER, SELFPAY ==
--- NOTE | 2021-12-10 12:31 | ED_ITS ---
HPI - Altered Mental Status General Stated Complaint: ALTURED MENTAL STATUS/HALLU Time Seen by Provider: 12/10/21 12:31 Related Data Home Medications Medication Instructions Recorded Confirmed aspirin 81 mg chewable tablet 81 mg PO DAILY 06/09/21 11/24/21 baclofen 20 mg tablet 20 mg PO BEDTIME 06/09/21 11/25/21 baclofen 20 mg tablet 20 mg PO QID 06/09/21 11/25/21 diazepam 5 mg tablet 10 mg PO BEDTIME 06/09/21 11/25/21 simvastatin 40 mg tablet 40 mg PO BEDTIME 06/09/21 11/24/21 zolpidem 10 mg tablet 10 mg PO BEDTIME 06/09/21 11/24/21 carisoprodol 350 mg tablet (Soma) 350 mg PO TID PRN Muscle Spasm 06/23/21 11/24/21 cholecalciferol (vitamin D3) 25 25 mcg PO DAILY 09/08/21 11/24/21 mcg (1,000 unit) tablet (Vitamin D3) acetaminophen 325 mg tablet 650 mg PO Q6H PRN Pain 11/25/21 11/25/21 gabapentin 400 mg capsule 400 mg PO BID 11/25/21 11/25/21 ibuprofen 400 mg tablet 400 mg PO Q6H 11/25/21 11/25/21 Previous Rx's Medication Instructions Recorded cephalexin 500 mg capsule 500 mg PO Q6H 7 days #28 caps 11/27/21 diazepam 5 mg tablet (Valium) 5 mg PO BEDTIME PRN sleep 30 days 11/27/21 #30 tabs Allergies Allergy/AdvReac Type Severity Reaction Status Date / Time No Known Allergies Allergy Verified 04/18/20 09:07 [facility] Past Medical History Medical History COPD (chronic obstructive pulmonary disease) Diabetes Femoral distal fracture Fracture of left tibial plateau Frequent falls Hemiparesis of left nondominant side Hyperlipidemia Hypertension Left hemiparesis Left humeral fracture Multiple sclerosis NSTEMI (non-ST elevated myocardial infarction) Physical deconditioning Polysubstance abuse Seizure disorder UTI (urinary tract infection) Weakness Surgical History No pertinent past surgical history Family History Family History Other Adopted Social History Social History Alcohol intake: never Patient Tobacco Use Status: Current everyday Tobacco user Tobacco use type: Cigarette Cigarette Packs Per Day: 0.5 Cigarettes Per Day: 10.0 Substance Use Type: Opiates Advance Directives Date on File: 04/10/20 service: No Current occupational status: retired Discharge Plan Discharge Prescriptions: No Action zolpidem 10 mg Tablet 10 mg PO BEDTIME aspirin 81 mg Tablet,Chewable 81 mg PO DAILY diazepam 5 mg Tablet 10 mg PO BEDTIME simvastatin 40 mg Tablet 40 mg PO BEDTIME baclofen 20 mg Tablet 20 mg PO QID baclofen 20 mg Tablet 20 mg PO BEDTIME Rx Instructions: total bedtime dose 40 mg carisoprodol [Soma] 350 mg Tablet 350 mg PO TID PRN (Reason: Muscle Spasm) acetaminophen 325 mg Tablet 650 mg PO Q6H PRN (Reason: Pain) gabapentin 400 mg Capsule 400 mg PO BID ibuprofen 400 mg Tablet 400 mg PO Q6H cephalexin 500 mg capsule 500 mg PO Q6H 7 Days Qty: 28 0RF diazepam [Valium] 5 mg tablet 5 mg PO BEDTIME PRN (Reason: sleep) 30 Days Qty: 30 0RF cholecalciferol (vitamin D3) [Vitamin D3] 25 mcg (1,000 unit) Tablet 25 mcg PO DAILY
[2021-12-10 12:40] VITALS: BP 121/68; BP 132/53; PULSE 100; PULSE 101; RESP 16; TEMP 37.6; O2SAT 95; O2SAT 96; BMI 22.6
--- NOTE | 2021-12-10 12:47 | ED.GENADULT ---
HPI - General Adult General Chief complaint: Urogenital-Female Stated complaint: ALTURED MENTAL STATUS/HALLU Time Seen by Provider: 12/10/21 12:31 Source: patient Mode of arrival: EMS Limitations: no limitations History of Present Illness HPI narrative: Patient With history of multiple sclerosis neurogenic bladder frequent UTI came from jail for leaking Marshall catheter bag with strong odor feels that she might have infection no fever no chills patient feel tired and lazy Related Data Home Medications Medication Instructions Recorded Confirmed aspirin 81 mg chewable tablet 81 mg PO DAILY 06/09/21 11/24/21 baclofen 20 mg tablet 20 mg PO BEDTIME 06/09/21 11/25/21 baclofen 20 mg tablet 20 mg PO QID 06/09/21 11/25/21 diazepam 5 mg tablet 10 mg PO BEDTIME 06/09/21 11/25/21 simvastatin 40 mg tablet 40 mg PO BEDTIME 06/09/21 11/24/21 zolpidem 10 mg tablet 10 mg PO BEDTIME 06/09/21 11/24/21 carisoprodol 350 mg tablet (Soma) 350 mg PO TID PRN Muscle Spasm 06/23/21 11/24/21 cholecalciferol (vitamin D3) 25 25 mcg PO DAILY 09/08/21 11/24/21 mcg (1,000 unit) tablet (Vitamin D3) acetaminophen 325 mg tablet 650 mg PO Q6H PRN Pain 11/25/21 11/25/21 gabapentin 400 mg capsule 400 mg PO BID 11/25/21 11/25/21 ibuprofen 400 mg tablet 400 mg PO Q6H 11/25/21 11/25/21 Previous Rx's Medication Instructions Recorded cephalexin 500 mg capsule 500 mg PO Q6H 7 days #28 caps 11/27/21 diazepam 5 mg tablet (Valium) 5 mg PO BEDTIME PRN sleep 30 days 11/27/21 #30 tabs ciprofloxacin HCl 250 mg tablet 250 mg PO BID #20 tabs 12/10/21 (Cipro) Allergies Allergy/AdvReac Type Severity Reaction Status Date / Time No Known Allergies Allergy Verified 04/18/20 09:07 Review of Systems Review of Systems: Yes all other systems are reviewed and are negative PMFSH Past Medical History Medical History COPD (chronic obstructive pulmonary disease) Diabetes Femoral distal fracture Fracture of left tibial plateau Frequent falls Hemiparesis of left nondominant side Hyperlipidemia Hypertension Left hemiparesis Left humeral fracture Multiple sclerosis Multiple sclerosis NSTEMI (non-ST elevated myocardial infarction) Physical deconditioning Polysubstance abuse Seizure disorder UTI (urinary tract infection) Weakness Surgical History No pertinent past surgical history Family History Family History Other Adopted Social History Social History Alcohol intake: never Patient Tobacco Use Status: Current everyday Tobacco user Tobacco use type: Cigarette Cigarette Packs Per Day: 0.5 Cigarettes Per Day: 10.0 Substance Use Type: Opiates Advance Directives: Yes Advance Directives on File: Yes Advance Directives Date on File: 04/10/20 Patient : No service: No Current occupational status: retired Physical Exam ED Vital Signs: Vital Signs - 24 hr 12/10/21 12:40 Temperature 99.6 F Pulse Rate 100 Respiratory Rate 16 Blood Pressure 132/53 L Pulse Oximetry 96 Oxygen Delivery Method Room Air BMI result Body Mass Index 22.6 Appearance: Alert. Oriented X3. No acute distress. Eyes: PERRLA, No Nystagmus ENT: Pharynx normal. Oral Mucosa moist Neck: Normal inspection. Neck supple. CVS: Normal heart rate and rhythm. Pulses normal. Respiratory: No respiratory distress. Equal air entry bilateral, no wheezing/rales/rhonchi Abdomen: Soft and nontender. Bowel sounds are present, no mass palpable, no CVA tenderness Skin: Skin warm and dry. Normal skin color. Normal skin turgor. Extremities: No lower extremity edema. No calf tenderness Neuro: Oriented X 3. 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 Oriented X3. No acute distress. ENT: Pharynx normal. Oral Mucosa moist Neck: Normal inspection. Neck supple. CVS: Normal heart rate and rhythm. Pulses normal. Respiratory: No respiratory distress. Equal air entry bilateral, no wheezing/rales/rhonchi Abdomen: Soft and nontender. Bowel sounds are present, no mass palpable, no CVA tenderness : Strong odor in the urine urine bag was leaking Skin: Skin warm and dry. Normal skin color. Normal skin turgor. Extremities: No lower extremity edema. No calf tenderness Neuro: Oriented X 3. Residual deficit from MS Medical Decision Making MDM Narrative Medical decision making narrative: 153 Patient with leaking Marshall bag which was replaced along with a new catheter patient refused blood workup at this time patient clinically not septic . Clinically patient has UTI will start patient on Cipro which was sensitive to previous cultures Discharge Plan Discharge Clinical Impression: Chronic indwelling Marshall catheter, UTI (urinary tract infection) Patient Disposition: Home, Self-Care Instructions: Urinary Tract Infection in Women (ED), Marshall Catheter Placement and Care (ED) Additional Instructions: Care of Marshall catheter as advised Take antibiotic as prescribed Follow with PCP if not better Prescriptions: New ciprofloxacin HCl [Cipro] 250 mg tablet 250 mg PO BID Qty: 20 0RF No Action zolpidem 10 mg Tablet 10 mg PO BEDTIME aspirin 81 mg Tablet,Chewable 81 mg PO DAILY diazepam 5 mg Tablet 10 mg PO BEDTIME simvastatin 40 mg Tablet 40 mg PO BEDTIME baclofen 20 mg Tablet 20 mg PO QID baclofen 20 mg Tablet 20 mg PO BEDTIME Rx Instructions: total bedtime dose 40 mg carisoprodol [Soma] 350 mg Tablet 350 mg PO TID PRN (Reason: Muscle Spasm) acetaminophen 325 mg Tablet 650 mg PO Q6H PRN (Reason: Pain) gabapentin 400 mg Capsule 400 mg PO BID ibuprofen 400 mg Tablet 400 mg PO Q6H cephalexin 500 mg capsule 500 mg PO Q6H 7 Days Qty: 28 0RF diazepam [Valium] 5 mg tablet 5 mg PO BEDTIME PRN (Reason: sleep) 30 Days Qty: 30 0RF cholecalciferol (vitamin D3) [Vitamin D3] 25 mcg (1,000 unit) Tablet 25 mcg PO DAILY
--- NOTE | 2021-12-10 15:17 | PC.NURSE ---
per pct pt continuously refusing blood work
--- NOTE | 2021-12-10 15:26 | PC.NURSE ---
18G urinary catheter removed. New 18G catheter inserted. Pt tolerated procedure well.
[2021-12-10] MEDS: levoFLOXacin 500 MG TABLET PO (16:06)
[2021-12-10 16:09] LABS: Appearance Urine CLOUDY; Color Urine YELLOW; Glucose Urine UA NEG (NEG); Leukocyte Esterase Urine 2+ (NEG); Nitrite Urine NEG (NEG); Specific Gravity - Urine >= 1.030 (1.005-1.025); UACC Culture Trigger YES; Urine Blood 3+ (NEG); Urine Ketones 15 MG/DL (NEG); Urine Protein 2+ MG/DL (NEG-TRACE)
[2021-12-10 16:23] LABS: Bacteria Urine 4+ /LPF; Mucus Urine 3+ /LPF; Renal Epithelial Cells Urine 3+ /LPF; Squamous Epithelial Cell Urine TRACE /LPF; WBC Urine 30-49 /HPF (0-4)
[2021-12-10 16:24] LABS: Calcium Oxalate Crystals Urine 1+ /LPF; WBC Clumps Urine NOTED
== END 2021-12-10 20:13 | disposition home or self-care (01) ==
PROVIDERS: Emergency Provider Internal Medicine; PCP Internal Medicine
DX: N39.0 Urinary tract infection, site not specified (principal); B96.5 Pseudomonas (aeruginosa) (mallei) (pseudomallei) as the cause of diseases classified elsewhere; Z46.6 Encounter for fitting and adjustment of urinary device; G35 Multiple sclerosis; E11.9 Type 2 diabetes mellitus without complications; I10 Essential (primary) hypertension; E78.5 Hyperlipidemia, unspecified; F17.200 Nicotine dependence, unspecified, uncomplicated; Z79.02 Long term (current) use of antithrombotics/antiplatelets; Z79.899 Other long term (current) drug therapy
CPT/HCPCS: 51702; 81001; 87086; 87088; 87186; 99284

== ENCOUNTER 2021-12-11 09:43 | Inpatient (IN) | payer MEDICARE, OTHER, SELFPAY ==
--- NOTE | ~2021-12-11 | CT_ITS ---
EXAMINATION: CT HEAD WITHOUT CONTRAST CLINICAL INFORMATION: Altered mental status. COMPARISON: 09/08/[address] scan. TECHNIQUE: Contiguous axial imaging was performed from the skull base to vertex without intravenous administration of contrast. Coronal and sagittal reformatted images were obtained. This CT examination was performed using dose optimization techniques as appropriate, variously including the following: *Automated exposure control *Adjustment of mA and/or kV according to patient size (this includes techniques or standardized protocols for targeted exams where dose is matched to indication/reason for exam; i.e. extremities or head) *Use of iterative reconstruction technique DLP: 604 mGy-cm FINDINGS: There is no evidence of acute intracranial hemorrhage or territorial infarction. No abnormal mass effect or midline shift is seen. Right basal ganglia lacunar infarct without significant change. [place] to white matter differentiation is well preserved. No extra-axial fluid collections are identified. The ventricles are normal in size. There is no abnormal attenuation within the brain parenchyma. The osseous structures and soft tissues are normal. The mastoid air cells and visualized portions of the paranasal sinuses are well aerated. CT/CT head/brain wo con IMPRESSION: No acute intracranial pathology.
--- NOTE | ~2021-12-11 | XR_ITS ---
EXAMINATION: XR CHEST CLINICAL INFORMATION: Altered mental status COMPARISON: Wrist radiograph 11/24/2021 TECHNIQUE: 2 views of the chest were obtained. FINDINGS: No significant abnormality is noted involving the heart, lungs, mediastinum, bony thorax or soft tissues. XR/XR chest 2V IMPRESSION: Unremarkable examination.
--- NOTE | 2021-12-11 09:54 | ED_ITS ---
HPI - General Adult General Chief complaint: General Medical Stated complaint: altered mental status Time Seen by Provider: 12/11/21 09:54 Source: patient and EMS Mode of arrival: EMS Limitations: altered mental status History of Present Illness HPI narrative: Patient is a 61 year old female presenting to the emergency department today with an altered mental status. EMS states that the patient was seen here yesterday and diagnosed with a UTI with a chronic dumas catheter in place, she was discharged home on PO medications. However, today, the patient's states that the patient has been much more altered and not making any sense. EMS states that the patient's is wheelchair bound and is not qualified to care for the patient. Patient denies any dizziness, lightheadedness, abdominal pain, nausea, vomiting, fever, chills, blurry vision, double vision, loss of vision, chest pain, difficulty breathing, shortness of breath, back pain, night sweats, pain with urination, increased urinary frequency, increased urinary urgency, blood in her urine or stool, syncope or a near syncopal episode, recent trauma or falls, bowel incontinence, bowel retention, or any other complaints at this time. Patient's states that the patient has a history of substance use disorder. Onset (ago): day(s) Severity: mild Severity scale (1-10): 4 Relieving factors: none Exacerbating factors: none Associated symptoms: denies other symptoms Treatments prior to arrival: none Related Data Home Medications Medication Instructions Recorded Confirmed aspirin 81 mg chewable tablet 81 mg PO DAILY 06/09/21 12/11/21 baclofen 20 mg tablet 20 mg PO BEDTIME 06/09/21 12/11/21 baclofen 20 mg tablet 20 mg PO QID 06/09/21 12/11/21 diazepam 5 mg tablet 10 mg PO BEDTIME 06/09/21 12/11/21 simvastatin 40 mg tablet 40 mg PO BEDTIME 06/09/21 12/11/21 zolpidem 10 mg tablet 10 mg PO BEDTIME 06/09/21 12/11/21 carisoprodol 350 mg tablet (Soma) 350 mg PO TID PRN Muscle Spasm 06/23/21 12/11/21 cholecalciferol (vitamin D3) 25 25 mcg PO DAILY 09/08/21 12/11/21 mcg (1,000 unit) tablet (Vitamin D3) gabapentin 400 mg capsule 400 mg PO BID 11/25/21 12/11/21 Allergies Allergy/AdvReac Type Severity Reaction Status Date / Time No Known Allergies Allergy Verified 04/18/20 09:07 Review of Systems Review of Systems: Yes Unobtainable due to mental status (patient was able to answer most questions but is confused) Constitutional: Constitutional: Reports no additional constitutional complaint s, Denies chills, Denies fever(s) and Denies night sweats Eyes: Eyes: Reports no additional eye complaints, Denies blurry vision, Denies change in vision, Denies diplopia, Denies eye discharge, Denies loss of vision and Denies eye pain ENT: Denies dizziness Cardiovascular: Cardiovascular: Reports no additional cardiovascular complaints, Denies chest pain, Denies lightheadedness, Denies Loss of Consciousness and Denies dyspnea Respiratory: Respiratory: Reports no additional respiratory complaints and Den ies dyspnea Gastrointestinal: Gastrointestinal: Reports no additional gastrointestinal complaints, Denies abdominal pain, Denies melena, Denies hematochezia, Denies change in bowel habits and Denies change in stool character Genitourinary: Genitourinary: Denies hematuria, Denies urinary frequency, Denies dysuria, Denies urinary incontinence, Denies urinary hesitancy and Denies urinary urgency Musculoskeletal: Musculoskeletal: Reports no additional musculoskeletal complaints, Denies numbness and Denies tingling Neurologic: Reports confusion, Denies dizziness, Denies loss of vision, Denies numbness and Denies tingling Psychiatric: Psychiatric: Reports confusion Endocrine: Endocrine: Reports no additional endocrine complaints Hematologic/Lymphatic: Hematologic/Lymphatic: Reports no additional hematologic/lymphatic complaints Allergic/Immunologic: Allergic/Immunologic: Reports no additional allergic/immunologic complaints [facility] Past Medical History Attestation statement: The following information was validated with the patient. (validated with patient's ) Source: old records reviewed and obtained from family () Medical History COPD (chronic obstructive pulmonary disease) Diabetes Femoral distal fracture Fracture of left tibial plateau Frequent falls Hemiparesis of left nondominant side Hyperlipidemia Hypertension Left hemiparesis Left humeral fracture Multiple sclerosis Multiple sclerosis NSTEMI (non-ST elevated myocardial infarction) Physical deconditioning Polysubstance abuse Seizure disorder UTI (urinary tract infection) Weakness Surgical History No pertinent past surgical history Family History Family History Other Adopted Social History Social History Alcohol intake: never Patient Tobacco Use Status: Never used Tobacco Tobacco use type: Cigarette Cigarette Packs Per Day: 0.5 Cigarettes Per Day: 10.0 Substance Use Type: Opiates Advance Directives: Yes Advance Directives Information Provided: Yes Advance Directives on File: No Advance Directives Date on File: 04/10/20 service: No Current occupational status: retired Physical Exam ED Vital Signs: Vital Signs - 24 hr 12/11/21 10:12 12/11/21 12:16 12/11/21 13:43 Temperature 99.0 F 98.4 F 98.3 F Pulse Rate 97 101 H 94 Respiratory Rate 18 20 20 Blood Pressure 122/73 137/65 143/64 H Pulse Oximetry 97 96 96 Oxygen Delivery Method Room Air Room Air BMI result Body Mass Index 22.6 Const General: confusion Nutritional Appearance: well nourished Orientation/consciousness: oriented to person and confusion Limitations: no limitations HENMT Head: Yes normal to inspection and Yes atraumatic Ears: hearing grossly normal bilaterally and external ears normal General nose exam: Normal external nose present, no nasal discharge noted and no epistaxis Face and sinus: Yes normal facial exam, No abrasion and No laceration Mouth: Normal oral and palatal mucosa present, no drooling and no muffled voice Eyes General: appearance normal, both eyes and all related structures Periorbital: periorbital findings normal Eyelids: Yes eyelids normal Conjunctivae: conjunctivae normal Pupils: Equal, round and reactive pupils present EOM: EOMs intact bilaterally Neck Neck: Yes normal visual inspection, Yes full ROM and Yes no lymphadenopathy Chest Chest palpation & inspection: normal inspection of the chest Resp Effort & Inspection: normal respiratory effort and able to speak in complete sentences Auscultation: clear to auscultation bilaterally Cardio Rate: regular rate Rhythm: regular rhythm GI Inspection: Yes normal to inspection Other: dumas catheter in place Neuro General: oriented to person and confusion Cranial nerves: Yes Equal, round and reactive pupils present Cognition (Neuro): normal cognition Motor exam (neuro): 5/5 motor strength present throughout Sensory Exam: Normal double simultaneous stimulation for sensation Coordination: [id number] test normal Extrem General: Yes normal to inspection, Yes full ROM and Yes capillary refill normal Psych Appearance: grossly normal Affect: normal affect Attitude: cooperative Thought process: Normal thought process present Thought content: Normal thought content present Insight: Good insight present (Psych) Medical Decision Making MDM Narrative Medical decision making narrative: Patient is a 61 year old female presenting to the emergency department today with an altered mental status. Patient's physical exam showed a confused 61 year old female with a chronic dumas catheter in place. Patient's blood work was unremarkable. Patient's urine showed an acute urinary tract infection. Patient's EKG was unremarkable. Patient's chest x-ray and head CT showed no acute process. I explained my physical exam findings as well as all test results to the patient. I answered all questions asked by the patient. Patient was given ABX to address Klebsiella and ESB. Patient's clinical picture was not consistent with sepsis and at no point during this patient's care did I consider the patient to be suffering from sepsis or septic shock. I spoke to Dr. Yo, who agreed to hospital admission of the patient. Differential Diagnosis Differential Diagnosis: Urinary tract infection, altered mental status Medical Records Medical records reviewed: Yes I reviewed the patient's medical records. Lab Data Lab results reviewed: Yes I reviewed the patient's lab results. Result diagrams: 12/11/21 11:19 12/11/21 11:19 Labs: Lab Results 12/11/21 12/11/21 12/11/21 Range/Units 10:40 10:40 10:43 WBC (4.8-10.8) X10*3/uL RBC (4.20-5.50) X10*6/uL Hgb (12.0-16.0) g/dl Hct (37.0-47.0) % MCV (80.0-98.0) fL MCH (27.0-33.0) pg MCHC (31.0-35.0) g/dl RDW (11.0-16.0) % Plt Count (160-400) X10*3/uL MPV (9.4-12.3) fL Immature Gran % (Auto) (0.0-0.4) % Neut % (Auto) (45-73) % Lymph % (Auto) (20-40) % [place] % (Auto) (2-11) % Eos % (Auto) (0-4) % Baso % (Auto) (0-2) % Lymph # (Auto) (1.2-4.9) X10*3/uL [place] # (Auto) (0.1-1.2) X10*3/uL Eos # (Auto) (0.0-0.4) X10*3/uL Baso # (Auto) (0.0-0.2) X10*3/uL Abs Immat Gran (auto) (0.00-0.03) X10*3/uL Absolute Neuts (auto) (2.0-8.3) x10*3/uL Absolute Nucleated RBC (0.0-0.012) X10*3/uL Nucleated RBC % (auto) (0.0-0.2) /100WBC Sodium (135-145) mmol/L Potassium (3.3-5.1) mmol/L Chloride (96-108) mmol/L Carbon Dioxide (22-29) mmol/L Anion Gap (12-20) BUN (9-16) mg/dL Creatinine (0.5-1.4) mg/dL Estim Creat Clear Calc Estimated GFR Random Glucose (60-115) mg/dL Lactic Acid (0.5-2.0) mmol/L Calcium (8.4-10.2) mg/dL Magnesium (1.6-2.6) mg/dL Total Bilirubin (0.0-1.0) mg/dL AST (5-31) U/L ALT (0-31) U/L Alkaline Phosphatase (39-117) U/L Troponin I High Sens (<3.5-17.0) ng/L Total Protein (6.5-8.0) g/dL Albumin (3.5-5.0) g/dL Urine Color Urine Appearance Urine pH (5.0-8.0) Ur Specific [place] (1.005-1.025) Urine Protein (NEG-TRACE) MG/DL Urine Glucose (UA) (NEG) MG/DL Urine Ketones (NEG) MG/DL Urine Blood (NEG) Urine Nitrite (NEG) Ur Leukocyte Esterase (NEG) Urine RBC (0) /HPF Urine WBC (0-4) /HPF Ur Squamous Epith Cells /LPF Calcium Oxalate Crystal /LPF Urine Bacteria /LPF Salicylates Cancelled Urine Opiates Screen (Not Detect) Urine Fentanyl Screen (Not Detect) Acetaminophen Cancelled Ur Barbiturates Screen (Not Detect) Ur Phencyclidine Scrn (Not Detect) Ur Amphetamines Screen (Not Detect) U Benzodiazepines Scrn (Not Detect) Urine Cocaine Screen (Not Detect) U Marijuana (THC) Screen (Not Detect) Ethyl Alcohol Cancelled COVID-19 (ALESSANDRA) (Negative) COVID-19 Clin Com Influenza Type A (CARMEN) Negative (Negative) Influenza Type B (CARMEN) Negative (Negative) Influenza A & B Note See Note 12/11/21 12/11/21 12/11/21 Range/Units 10:43 11:19 11:19 WBC 8.4 (4.8-10.8) X10*3/uL RBC 4.42 (4.20-5.50) X10*6/uL Hgb 13.3 (12.0-16.0) g/dl Hct 40.1 (37.0-47.0) % MCV 90.7 (80.0-98.0) fL MCH 30.1 (27.0-33.0) pg MCHC 33.2 (31.0-35.0) g/dl RDW 14.2 (11.0-16.0) % Plt Count 356 (160-400) X10*3/uL MPV 9.1 L (9.4-12.3) fL Immature Gran % (Auto) 0.5 H (0.0-0.4) % Neut % (Auto) 80.5 H (45-73) % Lymph % (Auto) 7.0 L (20-40) % [place] % (Auto) 10.6 (2-11) % Eos % (Auto) 1.0 (0-4) % Baso % (Auto) 0.4 (0-2) % Lymph # (Auto) 0.6 L (1.2-4.9) X10*3/uL [place] # (Auto) 0.9 (0.1-1.2) X10*3/uL Eos # (Auto) 0.1 (0.0-0.4) X10*3/uL Baso # (Auto) 0.0 (0.0-0.2) X10*3/uL Abs Immat Gran (auto) 0.04 H (0.00-0.03) X10*3/uL Absolute Neuts (auto) 6.8 (2.0-8.3) x10*3/uL Absolute Nucleated RBC 0.000 (0.0-0.012) X10*3/uL Nucleated RBC % (auto) 0.0 (0.0-0.2) /100WBC Sodium 139 (135-145) mmol/L Potassium 3.9 (3.3-5.1) mmol/L Chloride 102 (96-108) mmol/L Carbon Dioxide 26 (22-29) mmol/L Anion Gap 15 (12-20) BUN 9 (9-16) mg/dL Creatinine 0.74 (0.5-1.4) mg/dL Estim Creat Clear Calc 72.8 Estimated GFR > 60 Random Glucose 98 (60-115) mg/dL Lactic Acid (0.5-2.0) mmol/L Calcium 9.2 (8.4-10.2) mg/dL Magnesium 2.0 (1.6-2.6) mg/dL Total Bilirubin 0.6 (0.0-1.0) mg/dL AST 13 (5-31) U/L ALT 13 (0-31) U/L Alkaline Phosphatase 77 (39-117) U/L Troponin I High Sens (<3.5-17.0) ng/L Total Protein 7.1 (6.5-8.0) g/dL Albumin 4.3 (3.5-5.0) g/dL Urine Color Urine Appearance Urine pH (5.0-8.0) Ur Specific [place] (1.005-1.025) Urine Protein (NEG-TRACE) MG/DL Urine Glucose (UA) (NEG) MG/DL Urine Ketones (NEG) MG/DL Urine Blood (NEG) Urine Nitrite (NEG) Ur Leukocyte Esterase (NEG) Urine RBC (0) /HPF Urine WBC (0-4) /HPF Ur Squamous Epith Cells /LPF Calcium Oxalate Crystal /LPF Urine Bacteria /LPF Salicylates Urine Opiates Screen (Not Detect) Urine Fentanyl Screen (Not Detect) Acetaminophen Ur Barbiturates Screen (Not Detect) Ur Phencyclidine Scrn (Not Detect) Ur Amphetamines Screen (Not Detect) U Benzodiazepines Scrn (Not Detect) Urine Cocaine Screen (Not Detect) U Marijuana (THC) Screen (Not Detect) Ethyl Alcohol < 10 COVID-19 (ALESSANDRA) Negative (Negative) COVID-19 Clin Com See Note Influenza Type A (CARMEN) (Negative) Influenza Type B (CARMEN) (Negative) Influenza A & B Note 12/11/21 12/11/21 12/11/21 Range/Units 11:19 11:19 12:11 WBC (4.8-10.8) X10*3/uL RBC (4.20-5.50) X10*6/uL Hgb (12.0-16.0) g/dl Hct (37.0-47.0) % MCV (80.0-98.0) fL MCH (27.0-33.0) pg MCHC (31.0-35.0) g/dl RDW (11.0-16.0) % Plt Count (160-400) X10*3/uL MPV (9.4-12.3) fL Immature Gran % (Auto) (0.0-0.4) % Neut % (Auto) (45-73) % Lymph % (Auto) (20-40) % [place] % (Auto) (2-11) % Eos % (Auto) (0-4) % Baso % (Auto) (0-2) % Lymph # (Auto) (1.2-4.9) X10*3/uL [place] # (Auto) (0.1-1.2) X10*3/uL Eos # (Auto) (0.0-0.4) X10*3/uL Baso # (Auto) (0.0-0.2) X10*3/uL Abs Immat Gran (auto) (0.00-0.03) X10*3/uL Absolute Neuts (auto) (2.0-8.3) x10*3/uL Absolute Nucleated RBC (0.0-0.012) X10*3/uL Nucleated RBC % (auto) (0.0-0.2) /100WBC Sodium (135-145) mmol/L Potassium (3.3-5.1) mmol/L Chloride (96-108) mmol/L Carbon Dioxide (22-29) mmol/L Anion Gap (12-20) BUN (9-16) mg/dL Creatinine (0.5-1.4) mg/dL Estim Creat Clear Calc Estimated GFR Random Glucose (60-115) mg/dL Lactic Acid 1.1 (0.5-2.0) mmol/L Calcium (8.4-10.2) mg/dL Magnesium (1.6-2.6) mg/dL Total Bilirubin (0.0-1.0) mg/dL AST (5-31) U/L ALT (0-31) U/L Alkaline Phosphatase (39-117) U/L Troponin I High Sens < 3.5 (<3.5-17.0) ng/L Total Protein (6.5-8.0) g/dL Albumin (3.5-5.0) g/dL Urine Color Urine Appearance Urine pH (5.0-8.0) Ur Specific [place] (1.005-1.025) Urine Protein (NEG-TRACE) MG/DL Urine Glucose (UA) (NEG) MG/DL Urine Ketones (NEG) MG/DL Urine Blood (NEG) Urine Nitrite (NEG) Ur Leukocyte Esterase (NEG) Urine RBC (0) /HPF Urine WBC (0-4) /HPF Ur Squamous Epith Cells /LPF Calcium Oxalate Crystal /LPF Urine Bacteria /LPF Salicylates Urine Opiates Screen Not Detected (Not Detect) Urine Fentanyl Screen POSITIVE H (Not Detect) Acetaminophen Ur Barbiturates Screen Not Detected (Not Detect) Ur Phencyclidine Scrn Not Detected (Not Detect) Ur Amphetamines Screen Not Detected (Not Detect) U Benzodiazepines Scrn POSITIVE H (Not Detect) Urine Cocaine Screen Not Detected (Not Detect) U Marijuana (THC) Screen Not Detected (Not Detect) Ethyl Alcohol COVID-19 (ALESSANDRA) (Negative) COVID-19 Clin Com Influenza Type A (CARMEN) (Negative) Influenza Type B (CARMEN) (Negative) Influenza A & B Note 12/11/21 Range/Units 12:11 WBC (4.8-10.8) X10*3/uL RBC (4.20-5.50) X10*6/uL Hgb (12.0-16.0) g/dl Hct (37.0-47.0) % MCV (80.0-98.0) fL MCH (27.0-33.0) pg MCHC (31.0-35.0) g/dl RDW (11.0-16.0) % Plt Count (160-400) X10*3/uL MPV (9.4-12.3) fL Immature Gran % (Auto) (0.0-0.4) % Neut % (Auto) (45-73) % Lymph % (Auto) (20-40) % [place] % (Auto) (2-11) % Eos % (Auto) (0-4) % Baso % (Auto) (0-2) % Lymph # (Auto) (1.2-4.9) X10*3/uL [place] # (Auto) (0.1-1.2) X10*3/uL Eos # (Auto) (0.0-0.4) X10*3/uL Baso # (Auto) (0.0-0.2) X10*3/uL Abs Immat Gran (auto) (0.00-0.03) X10*3/uL Absolute Neuts (auto) (2.0-8.3) x10*3/uL Absolute Nucleated RBC (0.0-0.012) X10*3/uL Nucleated RBC % (auto) (0.0-0.2) /100WBC Sodium (135-145) mmol/L Potassium (3.3-5.1) mmol/L Chloride (96-108) mmol/L Carbon Dioxide (22-29) mmol/L Anion Gap (12-20) BUN (9-16) mg/dL Creatinine (0.5-1.4) mg/dL Estim Creat Clear Calc Estimated GFR Random Glucose (60-115) mg/dL Lactic Acid (0.5-2.0) mmol/L Calcium (8.4-10.2) mg/dL Magnesium (1.6-2.6) mg/dL Total Bilirubin (0.0-1.0) mg/dL AST (5-31) U/L ALT (0-31) U/L Alkaline Phosphatase (39-117) U/L Troponin I High Sens (<3.5-17.0) ng/L Total Protein (6.5-8.0) g/dL Albumin (3.5-5.0) g/dL Urine Color YELLOW Urine Appearance CLOUDY Urine pH 5.5 (5.0-8.0) Ur Specific [place] >= 1.030 H (1.005-1.025) Urine Protein 1+ H (NEG-TRACE) MG/DL Urine Glucose (UA) NEG (NEG) MG/DL Urine Ketones 40 (NEG) MG/DL Urine Blood 2+ H (NEG) Urine Nitrite NEG (NEG) Ur Leukocyte Esterase 1+ H (NEG) Urine RBC 10-14 H (0) /HPF Urine WBC 50-75 H (0-4) /HPF Ur Squamous Epith Cells 2+ /LPF Calcium Oxalate Crystal 1+ /LPF Urine Bacteria 1+ /LPF Salicylates Urine Opiates Screen (Not Detect) Urine Fentanyl Screen (Not Detect) Acetaminophen Ur Barbiturates Screen (Not Detect) Ur Phencyclidine Scrn (Not Detect) Ur Amphetamines Screen (Not Detect) U Benzodiazepines Scrn (Not Detect) Urine Cocaine Screen (Not Detect) U Marijuana (THC) Screen (Not Detect) Ethyl Alcohol COVID-19 (ALESSANDRA) (Negative) COVID-19 Clin Com Influenza Type A (CARMEN) (Negative) Influenza Type B (CARMEN) (Negative) Influenza A & B Note Imaging Data Chest x-ray: Attestation: I personally reviewed and interpreted this imaging study as follows: My impression: No acute process. Radiologist's impression: EXAMINATION: XR CHEST CLINICAL INFORMATION: Altered mental status COMPARISON: Wrist radiograph 11/24/2021 TECHNIQUE: 2 views of the chest were obtained. FINDINGS: No significant abnormality is noted involving the heart, lungs, mediastinum, bony thorax or soft tissues. XR/XR chest 2V IMPRESSION: Unremarkable examination. Dictated By: Alexander Ross MD Signed By: Electronically signed by Alexander Ross MD 12/11/[address] scan - head: Attestation: I personally reviewed and interpreted this imaging study as follows: My impression: No acute process. Radiologist's impression: EXAMINATION: CT HEAD WITHOUT CONTRAST CLINICAL INFORMATION: Altered mental status.? COMPARISON: 09/08/[address] scan. TECHNIQUE: Contiguous axial imaging was performed from the skull base to vertex without intravenous administration of contrast. Coronal and sagittal reformatted images were obtained. This CT examination was performed using dose optimization techniques as appropriate, variously including the following: *Automated exposure control *Adjustment of mA and/or kV according to patient size (this includes techniques or standardized protocols for targeted exams where dose is matched to indication/reason for exam; i.e. extremities or head) *Use of iterative reconstruction technique DLP: 604 mGy-cm FINDINGS: There is no evidence of acute intracranial hemorrhage or territorial infarction. No abnormal mass effect or midline shift is seen. Right basal ganglia lacunar infarct without significant change. [place] to white matter differentiation is well preserved. No extra-axial fluid collections are identified. The ventricles are normal in size. There is no abnormal attenuation within the brain parenchyma. The osseous structures and soft tissues are normal. The mastoid air cells and visualized portions of the paranasal sinuses are well aerated. CT/CT head/brain wo con IMPRESSION: No acute intracranial pathology. Dictated By: Milo Barajas MD Signed By: Electronically signed by Milo Barajas MD 12/11/21 8439 ECG Data Attestation: I personally reviewed and interpreted this ECG as follows: Prior ECG tracings: available for review Interpretation: Vent. Rate: 094 BPM ? ? Atrial Rate: 094 BPM P-R Int: 134 ms? QRS Dur: 072 ms QT Int: 354 ms ? ? ? P-R-T Axe : 066 048 074 degrees QTc Int: 442 ms ? Normal sinus rhythm Normal ECG When compared with ECG of 24-SEP-2021 17:13, No significant change was found DD/ [id number] Critical Care Time Critical Care Time Critical Care Time: Yes Total Critical Care Time: 30 Attestation: I spent 30 minutes of Critical Care Time with this patient. This does not include time spent on separately reported billable procedures. Discharge Plan Discharge Clinical Impression: UTI (urinary tract infection), Altered mental status Patient Disposition: Admitted As Inpatient
--- NOTE | 2021-12-11 09:57 | ECG_ITS ---
Test Reason : alter mental Blood Pressure : / mmHG Vent. Rate : 094 BPM Atrial Rate : 094 BPM P-R Int : 134 ms QRS Dur : 072 ms QT Int : 354 ms P-R-T Axes : 066 048 074 degrees QTc Int : 442 ms Normal sinus rhythm Normal ECG When compared with ECG of 24-SEP-2021 17:13, No significant change was found Referred By: Livia Zaidi Electronically Signed By:Duc Salcido
[2021-12-11 10:12] VITALS: BP 122/73; BP 153/86; PULSE 110; PULSE 97; RESP 18; TEMP 37.2; O2SAT 96; O2SAT 97; BMI 22.6
--- NOTE | 2021-12-11 10:30 | PC.NURSE ---
pt is a/o x 4, no sob/konrad noted speaks in full sentences. martir areas noted to buttocks, l groin and corie labia areas.
[2021-12-11 11:18] LABS: COVID-19 Test Negative (Negative); IDNOW Serial# 16C4AD1C; Influenza A Negative (Negative); Influenza B2 Negative (Negative)
[2021-12-11] MEDS: Ertapenem Sodium 1 GM in 0.9 % Sodium Chloride 50 ML IV (11:22)
[2021-12-11 11:29] LABS: Basophils Percent Auto 0.4 % (0-2); Eosinophils Absolute Auto 0.1 X10*3/uL (0.0-0.4); Hematocrit 40.1 % (37.0-47.0); Hemoglobin 13.3 g/dl (12.0-16.0); Imm Gran Abs Auto 0.04 X10*3/uL (0.00-0.03); Imm Gran Pct Auto 0.5 % (0.0-0.4); Lymphocytes Absolute Auto 0.6 X10*3/uL (1.2-4.9); Mean Corpuscular HGB Conc 33.2 g/dl (31.0-35.0); Mean Corpuscular Hemoglobin 30.1 pg (27.0-33.0); Mean Corpuscular Volume 90.7 fL (80.0-98.0); Mean Platelet Volume 9.1 fL (9.4-12.3); Monocytes Absolute Auto 0.9 X10*3/uL (0.1-1.2); Monocytes Percent Auto 10.6 % (2-11); Neutrophils Absolute Auto 6.8 x10*3/uL (2.0-8.3); Neutrophils Percent Auto 80.5 % (45-73); Platelet Count 356 X10*3/uL (160-400); Red Blood Count 4.42 X10*6/uL (4.20-5.50); Red Cell Distribution Width 14.2 % (11.0-16.0); White Blood Count 8.4 X10*3/uL (4.8-10.8)
[2021-12-11 11:37] LABS: Lactic Acid 1.1 mmol/L (0.5-2.0)
[2021-12-11 11:43] LABS: Alanine Aminotransferase 13 U/L (0-31); Albumin Level 4.3 g/dL (3.5-5.0); Alkaline Phosphatase 77 U/L (39-117); Anion Gap 15 (12-20); Aspartate Amino Transferase 13 U/L (5-31); Bilirubin Total 0.6 mg/dL (0.0-1.0); Blood Urea Nitrogen 9 mg/dL (9-16); Calcium 9.2 mg/dL (8.4-10.2); Carbon Dioxide 26 mmol/L (22-29); Chloride 102 mmol/L (96-108); Creatinine Clr Calc Pharmacy 72.8; Estimated Glomerular Filt Rate > 60; Glucose Random 98 mg/dL (60-115); Potassium 3.9 mmol/L (3.3-5.1); Sodium 139 mmol/L (135-145); Total Protein 7.1 g/dL (6.5-8.0)
[2021-12-11 11:46] LABS: MANUAL DIFF FLAG NO; Troponin-I High Sensitivity < 3.5 ng/L (<3.5-17.0)
[2021-12-11 12:16] VITALS: BP 137/65; PULSE 101; RESP 20; TEMP 36.9; O2SAT 96
[2021-12-11 12:24] LABS: Appearance Urine CLOUDY; Color Urine YELLOW; Glucose Urine UA NEG (NEG); Leukocyte Esterase Urine 1+ (NEG); Nitrite Urine NEG (NEG); PH 5.5 (5.0-8.0); Specific Gravity - Urine >= 1.030 (1.005-1.025); UACC Culture Trigger YES; Urine Blood 2+ (NEG); Urine Ketones 40 MG/DL (NEG); Urine Protein 1+ MG/DL (NEG-TRACE)
[2021-12-11 12:37] LABS: Amphetamine Screen Urine Not Detected (Not Detect); Barbiturates, Urine Not Detected (Not Detect); Benzodiazepines Screen Urine POSITIVE (Not Detect); Cannabinoid Screen Urine Not Detected (Not Detect); Cocaine Screen Urine Not Detected (Not Detect); Fentanyl, urine POSITIVE (Not Detect); Opiate Screen Urine Not Detected (Not Detect); Phencyclidine Screen Urine Not Detected (Not Detect)
[2021-12-11 12:39] LABS: Bacteria Urine 1+ /LPF; Calcium Oxalate Crystals Urine 1+ /LPF; Squamous Epithelial Cell Urine 2+ /LPF
[2021-12-11 12:40] LABS: WBC Urine 50-75 /HPF (0-4)
[2021-12-11 13:03] LABS: Ethanol < 10 mg/dL
[2021-12-11 13:43] VITALS: BP 143/64; PULSE 94; RESP 20; TEMP 36.8; O2SAT 96
--- NOTE | 2021-12-11 13:45 | PC.NURSE ---
dr. chavez at bedside pt aware of plan of care for admission to hosp.
--- NOTE | 2021-12-11 13:55 | P.HPHOSP_ITS ---
History of Present Illness Date of Service: 12/11/21 Chief Complaint: ams 61F Presented with altered mental status. Patient had been in ED day prior to presentation for malodorous urine and chronic Dumas, previous cultures have grown Klebsiella and Pseudomonas, was placed on Cipro, on day of presentation patient was noted to be confused with nonsensical speech so brought back to the ED. in ED patient afebrile, WBC normal, CT head unremarkable. Patient reports not taking her regular dose of diazepam and baclofen, however this is unreliable. She denies any chest pain, fever, chills, shortness of breath. Review of Systems Review of Systems: Constitutional: Denies fever, denies Chills Eyes: denies blurry vision ENT: denies sore throat CVS: denies chest pain Respiratory: Denies dyspnea GI: no abdominal pain : denies dysuria MSK: denies neck pain Skin: denies rash Neuro: denies specific motor weakness Psych: denies suicidal ideation Endocrine: denies heat/cold intolerance Hematologic: denies easy bleeding Allergy: denies hives [facility] Medical History COPD (chronic obstructive pulmonary disease) Diabetes Femoral distal fracture Fracture of left tibial plateau Frequent falls Hemiparesis of left nondominant side Hyperlipidemia Hypertension Left hemiparesis Left humeral fracture Multiple sclerosis Multiple sclerosis NSTEMI (non-ST elevated myocardial infarction) Physical deconditioning Polysubstance abuse Seizure disorder UTI (urinary tract infection) Weakness Family History Other Adopted Surgical History No pertinent past surgical history Social History Alcohol intake: never Patient Tobacco Use Status: Never used Tobacco Tobacco use type: Cigarette Cigarette Packs Per Day: 0.5 Cigarettes Per Day: 10.0 Substance Use Type: Opiates Advance Directives: Yes Advance Directives Information Provided: Yes Advance Directives on File: No Advance Directives Date on File: 04/10/20 service: No Current occupational status: retired Meds Allergies Allergy/AdvReac Type Severity Reaction Status Date / Time No Known Allergies Allergy Verified 04/18/20 09:07 Active Medications: Current Medications Pharmacy Consult (Consult Rx Perform Med Rec) 1 each MISCELLANE ONCE PRN PRN Reason: Consult order Home Medications Medication Instructions Recorded Confirmed Last Taken Type aspirin 81 mg chewable tablet 81 mg PO DAILY 06/09/21 11/24/21 07/12/21 History baclofen 20 mg tablet 20 mg PO BEDTIME 06/09/21 11/25/21 07/12/21 History baclofen 20 mg tablet 20 mg PO QID 06/09/21 11/25/21 07/13/21 History diazepam 5 mg tablet 10 mg PO BEDTIME 06/09/21 11/25/21 07/13/21 History simvastatin 40 mg tablet 40 mg PO BEDTIME 06/09/21 11/24/21 07/12/21 History zolpidem 10 mg tablet 10 mg PO BEDTIME 06/09/21 11/24/21 07/12/21 History carisoprodol 350 mg tablet (Soma) 350 mg PO TID PRN Muscle Spasm 06/23/21 11/24/21 07/13/21 History cholecalciferol (vitamin D3) 25 25 mcg PO DAILY 09/08/21 11/24/21 Unknown History mcg (1,000 unit) tablet (Vitamin D3) acetaminophen 325 mg tablet 650 mg PO Q6H PRN Pain 11/25/21 11/25/21 Unknown History gabapentin 400 mg capsule 400 mg PO BID 11/25/21 11/25/21 Unknown History ibuprofen 400 mg tablet 400 mg PO Q6H 11/25/21 11/25/21 Unknown History Physical Exam Vital Signs and Narrative: Vital Signs: Last Vital Signs Temp 98.3 F 12/11/21 13:43 Pulse 94 12/11/21 13:43 Resp 20 12/11/21 13:43 BP 143/64 H 12/11/21 13:43 Pulse Ox 96 12/11/21 13:43 O2 Del Method 12/11/21 13:43 BMI result Body Mass Index 22.6 General: no acute distress HEENT: atraumatic Neck: normal to visual inspection CVS: S1, S2, RRR Resp: CTA bilateral Chest: non tender GI: soft, non tender, non distended : no CVA tenderness Skin: no rashes Extremities: no edema Neuro: Oriented X2, Left hemiparesis Psych: cooperative Results Labs CBC and Chem 7: 12/11/21 11:19 07/07/22 11:19 Labs: Laboratory Results - last 24 hr 12/11/21 12/11/21 12/11/21 10:40 10:40 10:43 MCV MCH MCHC RDW Plt Count MPV Immature Gran % (Auto) Neut % (Auto) Lymph % (Auto) [place] % (Auto) Eos % (Auto) Baso % (Auto) Lymph # (Auto) [place] # (Auto) Eos # (Auto) Baso # (Auto) Abs Immat Gran (auto) Absolute Neuts (auto) Absolute Nucleated RBC Nucleated RBC % (auto) Anion Gap Estim Creat Clear Calc Estimated GFR Random Glucose Lactic Acid Calcium Magnesium Total Bilirubin AST ALT Alkaline Phosphatase Troponin I High Sens Total Protein Albumin Urine Color Urine Appearance Urine pH Ur Specific [place] Urine Protein Urine Glucose (UA) Urine Ketones Urine Blood Urine Nitrite Ur Leukocyte Esterase Urine RBC Urine WBC Ur Squamous Epith Cells Calcium Oxalate Crystal Urine Bacteria Salicylates Cancelled Urine Opiates Screen Urine Fentanyl Screen Acetaminophen Cancelled Ur Barbiturates Screen Ur Phencyclidine Scrn Ur Amphetamines Screen U Benzodiazepines Scrn Urine Cocaine Screen U Marijuana (THC) Screen Ethyl Alcohol Cancelled COVID-19 (ALESSANDRA) COVID-19 Clin Com Influenza Type A (CARMEN) Negative Influenza Type B (CARMEN) Negative Influenza A & B Note See Note 12/11/21 12/11/21 12/11/21 10:43 11:19 11:19 MCV 90.7 MCH 30.1 MCHC 33.2 RDW 14.2 Plt Count 356 MPV 9.1 L Immature Gran % (Auto) 0.5 H Neut % (Auto) 80.5 H Lymph % (Auto) 7.0 L [place] % (Auto) 10.6 Eos % (Auto) 1.0 Baso % (Auto) 0.4 Lymph # (Auto) 0.6 L [place] # (Auto) 0.9 Eos # (Auto) 0.1 Baso # (Auto) 0.0 Abs Immat Gran (auto) 0.04 H Absolute Neuts (auto) 6.8 Absolute Nucleated RBC 0.000 Nucleated RBC % (auto) 0.0 Anion Gap 15 Estim Creat Clear Calc 72.8 Estimated GFR > 60 Random Glucose 98 Lactic Acid Calcium 9.2 Magnesium 2.0 Total Bilirubin 0.6 AST 13 ALT 13 Alkaline Phosphatase 77 Troponin I High Sens Total Protein 7.1 Albumin 4.3 Urine Color Urine Appearance Urine pH Ur Specific [place] Urine Protein Urine Glucose (UA) Urine Ketones Urine Blood Urine Nitrite Ur Leukocyte Esterase Urine RBC Urine WBC Ur Squamous Epith Cells Calcium Oxalate Crystal Urine Bacteria Salicylates Urine Opiates Screen Urine Fentanyl Screen Acetaminophen Ur Barbiturates Screen Ur Phencyclidine Scrn Ur Amphetamines Screen U Benzodiazepines Scrn Urine Cocaine Screen U Marijuana (THC) Screen Ethyl Alcohol < 10 COVID-19 (ALESSANDRA) Negative COVID-19 Clin Com See Note Influenza Type A (CARMEN) Influenza Type B (CARMEN) Influenza A & B Note 12/11/21 12/11/21 12/11/21 11:19 11:19 12:11 MCV MCH MCHC RDW Plt Count MPV Immature Gran % (Auto) Neut % (Auto) Lymph % (Auto) [place] % (Auto) Eos % (Auto) Baso % (Auto) Lymph # (Auto) [place] # (Auto) Eos # (Auto) Baso # (Auto) Abs Immat Gran (auto) Absolute Neuts (auto) Absolute Nucleated RBC Nucleated RBC % (auto) Anion Gap Estim Creat Clear Calc Estimated GFR Random Glucose Lactic Acid 1.1 Calcium Magnesium Total Bilirubin AST ALT Alkaline Phosphatase Troponin I High Sens < 3.5 Total Protein Albumin Urine Color Urine Appearance Urine pH Ur Specific [place] Urine Protein Urine Glucose (UA) Urine Ketones Urine Blood Urine Nitrite Ur Leukocyte Esterase Urine RBC Urine WBC Ur Squamous Epith Cells Calcium Oxalate Crystal Urine Bacteria Salicylates Urine Opiates Screen Not Detected Urine Fentanyl Screen POSITIVE H Acetaminophen Ur Barbiturates Screen Not Detected Ur Phencyclidine Scrn Not Detected Ur Amphetamines Screen Not Detected U Benzodiazepines Scrn POSITIVE H Urine Cocaine Screen Not Detected U Marijuana (THC) Screen Not Detected Ethyl Alcohol COVID-19 (ALESSANDRA) COVID-19 Clin Com Influenza Type A (CARMEN) Influenza Type B (CARMEN) Influenza A & B Note 12/11/21 12:11 MCV MCH MCHC RDW Plt Count MPV Immature Gran % (Auto) Neut % (Auto) Lymph % (Auto) [place] % (Auto) Eos % (Auto) Baso % (Auto) Lymph # (Auto) [place] # (Auto) Eos # (Auto) Baso # (Auto) Abs Immat Gran (auto) Absolute Neuts (auto) Absolute Nucleated RBC Nucleated RBC % (auto) Anion Gap Estim Creat Clear Calc Estimated GFR Random Glucose Lactic Acid Calcium Magnesium Total Bilirubin AST ALT Alkaline Phosphatase Troponin I High Sens Total Protein Albumin Urine Color YELLOW Urine Appearance CLOUDY Urine pH 5.5 Ur Specific [place] >= 1.030 H Urine Protein 1+ H Urine Glucose (UA) NEG Urine Ketones 40 Urine Blood 2+ H Urine Nitrite NEG Ur Leukocyte Esterase 1+ H Urine RBC 10-14 H Urine WBC 50-75 H Ur Squamous Epith Cells 2+ Calcium Oxalate Crystal 1+ Urine Bacteria 1+ Salicylates Urine Opiates Screen Urine Fentanyl Screen Acetaminophen Ur Barbiturates Screen Ur Phencyclidine Scrn Ur Amphetamines Screen U Benzodiazepines Scrn Urine Cocaine Screen U Marijuana (THC) Screen Ethyl Alcohol COVID-19 (ALESSANDRA) COVID-19 Clin Com Influenza Type A (CARMEN) Influenza Type B (CARMEN) Influenza A & B Note Imaging Radiologist's Impressions: Impressions Head CT 12/11/21 11:17 IMPRESSION: No acute intracranial pathology. Chest X-Ray 12/11/21 11:34 IMPRESSION: Unremarkable examination. Assessment and Plan (1) Altered mental status: Status: Acute Plan 61F presented with ams toxic metabolic encephalopathy ddx: uti in patient with chronic dumas and MDR organisms - levaquin, follow up cultures, ID benzo/baclofen toxicity or withdrawal restart meds at home dose MS with left hemiparesis conitnue antispasmotics, not in exacerbation dvt prophylaxis - lovenox full code pateint with ams and mdr organsims in urine, therefore expected to require atleast 2 midnights Quality Stroke Does the patient have a stroke diagnosis?: No VTE Prior VTE?: No VTE Risk Level:: Medical - moderate - high VTE Device Contraindication: Treatment Not Indicated VTE Drug Contraindication: N/A - Med Ordered
[2021-12-11] MEDS: Nystatin Powder 15 GM BOTTLE 1 APPL TOPICAL (14:35)
[2021-12-11] MEDS: Enoxaparin Sodium 40 MG/0.4 ML SYRINGE SUBCUT (14:35)
[2021-12-11] MEDS: levoFLOXacin/D5W 750 MG/150 ML PIGGYBACK 100 MG IV (14:35)
--- NOTE | 2021-12-11 14:59 | PHA.MEDREC ---
Pharmacy Consult ? Medication Reconciliation Pharmacy has completed the medication reconciliation. Patient no longer with [facility]. Patient reported all medications. Reported meds match PDMP and medical record. Alicia Thomas, OrlinD
[2021-12-11 15:23] VITALS: BP 131/54; PULSE 105; RESP 18; TEMP 36.8; O2SAT 97
--- NOTE | 2021-12-11 15:29 | PC.NURSE ---
patient a&ox3, vss, pt dumas patient/draining, pt has no complaints of pain or discomfort, iv abx running per order, call silverio within reach, will continue to monitor.
[2021-12-11] MEDS: 0.9 % Sodium Chloride Flush 3 ML SYRINGE IVFLUSH (16:58)
--- NOTE | 2021-12-11 18:46 | MHC.CM.PN ---
Addendum entered by Leonor Watson 12/11/21 19:13: Pt cannot tell CM where she lives or who she lives with. Pt does not know why she is in the ED. Tearful. Tells CM she doesn't live with . Does not know her PCP. Pt takes diazepam which is a bnezo, however, medication list does not explain + fentanyl. ? PCP Pranav Su. Pt has been d/c home in the past with [facility]/ home PT and to [facility]. Addendum entered by Leonor Watson 12/11/21 18:57: May need PT evaluation and CARE team if pt AMS does not clear after antibiotic treatment. Original Note: IMM 12/11. Attempted to meet with patient, however pt is very altered and cannot answer any CM questions. HCP/ Otoniel Valenzuela ([phone]). Otoniel is aware that he will need to make decisions regarding pt care/IMM while pt is altered. Explained that pt has a UTI and that may be why she is so altered mentally. feels it may be MS in her brain. does not feel she can go home in this condition. Explained that she may improve with antibiotics. Otoniel states pt was not making sense, was throwing things at him, had her MACE out and had not eaten or slept in several days. states he would like her to go to [facility], as she has been there in the past. Explained to Otoniel that CM could re-evaluate D/C plan more as patient improves with treatment. Pt uses a scooter, as she has MS and L hemiparesis. Has [employer] 1 hour/day, four days per week through [facility]. Pt received Moderna x2. No booster. PCP is at [facility] in [place]. Tox screen positive for fentanyl and benzos. No referrals placed at this time. CM to follow for d/c needs.
[2021-12-11 20:42] VITALS: BP 137/66; PULSE 100; RESP 18; TEMP 36.7; O2SAT 97
[2021-12-12] VITALS (7 sets, daily range): BP systolic 100–135; BP diastolic 54–62; PULSE 84–99; RESP 16–18; TEMP 36.1–36.7; O2SAT 94–98; BMI 22.4
[2021-12-12] MEDS: 0.9 % Sodium Chloride Flush 3 ML SYRINGE IVFLUSH ×3 (00:04→14:41)
[2021-12-12 06:36] LABS: Hematocrit 38.6 % (37.0-47.0); Hemoglobin 12.7 g/dl (12.0-16.0); Mean Corpuscular HGB Conc 32.9 g/dl (31.0-35.0); Mean Corpuscular Hemoglobin 30.2 pg (27.0-33.0); Mean Corpuscular Volume 91.7 fL (80.0-98.0); Mean Platelet Volume 9.1 fL (9.4-12.3); Platelet Count 340 X10*3/uL (160-400); Red Blood Count 4.21 X10*6/uL (4.20-5.50); Red Cell Distribution Width 14.3 % (11.0-16.0); White Blood Count 4.2 X10*3/uL (4.8-10.8)
[2021-12-12 06:50] LABS: Anion Gap 14 (12-20); Blood Urea Nitrogen 10 mg/dL (9-16); Calcium 8.7 mg/dL (8.4-10.2); Carbon Dioxide 24 mmol/L (22-29); Chloride 104 mmol/L (96-108); Creatinine Clr Calc Pharmacy 80.4; Estimated Glomerular Filt Rate > 60; Glucose Random 94 mg/dL (60-115); Potassium 4.2 mmol/L (3.3-5.1); Sodium 138 mmol/L (135-145)
--- NOTE | 2021-12-12 09:34 | P.PNIM_ITS ---
Subjective Subjective Date of Service: 12/12/21 Interval History: cc: ams interval history:tremulous Cardiovascular Cardiovascular: Reports no additional cardiovascular complaints Respiratory Respiratory: Reports no additional respiratory complaints Physical Exam Vital Signs: Vital Signs: Last Vital Signs Temp 97 F 12/12/21 07:29 Pulse 89 12/12/21 07:29 Resp 18 12/12/21 07:29 BP 125/54 L 12/12/21 07:29 Pulse Ox 94 12/12/21 07:29 O2 Del Method 12/12/21 07:29 BMI result Body Mass Index 22.4 General: AO X 2, tremulous Resp: CTA bilateral, no accessory muscles used CVS: S1,S2,RRR GI: soft, non tender, non distended Neuro: left hemiparesis, alert Psych: appropriate affect, impaired insight Objective Data Active Medications Acetaminophen (Acetaminophen 325 Mg Tablet) 650 mg PO Q6H PRN PRN Reason: Pain, Mild (Pain Scale 1-3) Aspirin (Aspirin 81 Mg Tab.Chew) 81 mg PO DAILY [facility] Atorvastatin Calcium (Atorvastatin Calcium 20 Mg Tablet) 20 mg PO BEDTIME [facility] Baclofen (Baclofen 20 Mg Tablet) 20 mg PO QID [facility] Baclofen (Baclofen 20 Mg Tablet) 20 mg PO BEDTIME [facility] Carisoprodol (Carisoprodol 350 Mg Tablet) 350 mg PO TID PRN PRN Reason: Muscle Spasm Diazepam (Diazepam 5 Mg Tablet) 10 mg PO BEDTIME [facility] Enoxaparin Sodium (Enoxaparin Sodium 40 Mg/0.4 Ml Syringe) 40 mg SUBCUT Q24H [facility] Last Admin: 12/11/21 14:35 Dose: 40 mg Documented By: CORIN Gabapentin (Gabapentin 400 Mg Capsule) 400 mg PO BID [facility] Levofloxacin (Levaquin) 750 mg in 150 mls @ 100 mls/hr IV Q24H [facility] Last Infusion: 12/11/21 16:05 Dose: 0 mls/hr Documented By: MURALI Pharmacy Consult (Consult Rx Perform Med Rec) 1 each MISCELLANE ONCE PRN PRN Reason: Consult order Sodium Chloride (0.9 % Sodium Chloride Flush 3 Ml Syringe) 3 ml IVFLUSH QSHIFT [facility] Last Admin: 12/12/21 00:04 Dose: 3 ml Documented By: BRIDGETTE Vitamin D (Cholecalciferol (Vitamin D3) 25 Mcg Tablet) 25 mcg PO DAILY [facility] Zolpidem Tartrate (Zolpidem Tartrate 5 Mg Tablet) 5 mg PO BEDTIME [facility] Labs CBC & Chem 7: 12/12/21 06:28 12/12/21 06:28 Labs: Laboratory Results - last 24 hr 12/11/21 12/11/21 12/11/21 10:40 10:40 10:43 MCV MCH MCHC RDW Plt Count MPV Immature Gran % (Auto) Neut % (Auto) Lymph % (Auto) [place] % (Auto) Eos % (Auto) Baso % (Auto) Lymph # (Auto) [place] # (Auto) Eos # (Auto) Baso # (Auto) Abs Immat Gran (auto) Absolute Neuts (auto) Absolute Nucleated RBC Nucleated RBC % (auto) Anion Gap Estim Creat Clear Calc Estimated GFR Random Glucose Lactic Acid Calcium Magnesium Total Bilirubin AST ALT Alkaline Phosphatase Troponin I High Sens Total Protein Albumin Urine Color Urine Appearance Urine pH Ur Specific [place] Urine Protein Urine Glucose (UA) Urine Ketones Urine Blood Urine Nitrite Ur Leukocyte Esterase Urine RBC Urine WBC Ur Squamous Epith Cells Calcium Oxalate Crystal Urine Bacteria Salicylates Cancelled Urine Opiates Screen Urine Fentanyl Screen Acetaminophen Cancelled Ur Barbiturates Screen Ur Phencyclidine Scrn Ur Amphetamines Screen U Benzodiazepines Scrn Urine Cocaine Screen U Marijuana (THC) Screen Ethyl Alcohol Cancelled COVID-19 (ALESSANDRA) COVID-19 Clin Com Influenza Type A (CARMEN) Negative Influenza Type B (CARMEN) Negative Influenza A & B Note See Note 12/11/21 12/11/21 12/11/21 10:43 11:19 11:19 MCV 90.7 MCH 30.1 MCHC 33.2 RDW 14.2 Plt Count 356 MPV 9.1 L Immature Gran % (Auto) 0.5 H Neut % (Auto) 80.5 H Lymph % (Auto) 7.0 L [place] % (Auto) 10.6 Eos % (Auto) 1.0 Baso % (Auto) 0.4 Lymph # (Auto) 0.6 L [place] # (Auto) 0.9 Eos # (Auto) 0.1 Baso # (Auto) 0.0 Abs Immat Gran (auto) 0.04 H Absolute Neuts (auto) 6.8 Absolute Nucleated RBC 0.000 Nucleated RBC % (auto) 0.0 Anion Gap 15 Estim Creat Clear Calc 72.8 Estimated GFR > 60 Random Glucose 98 Lactic Acid Calcium 9.2 Magnesium 2.0 Total Bilirubin 0.6 AST 13 ALT 13 Alkaline Phosphatase 77 Troponin I High Sens Total Protein 7.1 Albumin 4.3 Urine Color Urine Appearance Urine pH Ur Specific [place] Urine Protein Urine Glucose (UA) Urine Ketones Urine Blood Urine Nitrite Ur Leukocyte Esterase Urine RBC Urine WBC Ur Squamous Epith Cells Calcium Oxalate Crystal Urine Bacteria Salicylates Urine Opiates Screen Urine Fentanyl Screen Acetaminophen Ur Barbiturates Screen Ur Phencyclidine Scrn Ur Amphetamines Screen U Benzodiazepines Scrn Urine Cocaine Screen U Marijuana (THC) Screen Ethyl Alcohol < 10 COVID-19 (ALESSANDRA) Negative COVID-19 Clin Com See Note Influenza Type A (CARMEN) Influenza Type B (CARMEN) Influenza A & B Note 12/11/21 12/11/21 12/11/21 11:19 11:19 12:11 MCV MCH MCHC RDW Plt Count MPV Immature Gran % (Auto) Neut % (Auto) Lymph % (Auto) [place] % (Auto) Eos % (Auto) Baso % (Auto) Lymph # (Auto) [place] # (Auto) Eos # (Auto) Baso # (Auto) Abs Immat Gran (auto) Absolute Neuts (auto) Absolute Nucleated RBC Nucleated RBC % (auto) Anion Gap Estim Creat Clear Calc Estimated GFR Random Glucose Lactic Acid 1.1 Calcium Magnesium Total Bilirubin AST ALT Alkaline Phosphatase Troponin I High Sens < 3.5 Total Protein Albumin Urine Color Urine Appearance Urine pH Ur Specific [place] Urine Protein Urine Glucose (UA) Urine Ketones Urine Blood Urine Nitrite Ur Leukocyte Esterase Urine RBC Urine WBC Ur Squamous Epith Cells Calcium Oxalate Crystal Urine Bacteria Salicylates Urine Opiates Screen Not Detected Urine Fentanyl Screen POSITIVE H Acetaminophen Ur Barbiturates Screen Not Detected Ur Phencyclidine Scrn Not Detected Ur Amphetamines Screen Not Detected U Benzodiazepines Scrn POSITIVE H Urine Cocaine Screen Not Detected U Marijuana (THC) Screen Not Detected Ethyl Alcohol COVID-19 (ALESSANDRA) COVID-19 Clin Com Influenza Type A (CARMEN) Influenza Type B (CARMEN) Influenza A & B Note 12/11/21 12/12/21 12/12/21 12:11 06:28 06:28 MCV 91.7 MCH 30.2 MCHC 32.9 RDW 14.3 Plt Count 340 MPV 9.1 L Immature Gran % (Auto) Neut % (Auto) Lymph % (Auto) [place] % (Auto) Eos % (Auto) Baso % (Auto) Lymph # (Auto) [place] # (Auto) Eos # (Auto) Baso # (Auto) Abs Immat Gran (auto) Absolute Neuts (auto) Absolute Nucleated RBC 0.000 Nucleated RBC % (auto) 0.0 Anion Gap 14 Estim Creat Clear Calc 80.4 Estimated GFR > 60 Random Glucose 94 Lactic Acid Calcium 8.7 Magnesium Total Bilirubin AST ALT Alkaline Phosphatase Troponin I High Sens Total Protein Albumin Urine Color YELLOW Urine Appearance CLOUDY Urine pH 5.5 Ur Specific [place] >= 1.030 H Urine Protein 1+ H Urine Glucose (UA) NEG Urine Ketones 40 Urine Blood 2+ H Urine Nitrite NEG Ur Leukocyte Esterase 1+ H Urine RBC 10-14 H Urine WBC 50-75 H Ur Squamous Epith Cells 2+ Calcium Oxalate Crystal 1+ Urine Bacteria 1+ Salicylates Urine Opiates Screen Urine Fentanyl Screen Acetaminophen Ur Barbiturates Screen Ur Phencyclidine Scrn Ur Amphetamines Screen U Benzodiazepines Scrn Urine Cocaine Screen U Marijuana (THC) Screen Ethyl Alcohol COVID-19 (ALESSANDRA) COVID-19 Clin Com Influenza Type A (CARMEN) Influenza Type B (CARMEN) Influenza A & B Note Microbiology Microbiology Results: Microbiology 12/11/21 10:44 Blood Culture - Preliminary Blood - Venous Prelim: GPC Gram Stain only Assessment and Plan (1) UTI (urinary tract infection): Status: Acute Plan 61F presented with ams toxic metabolic encephalopathy ddx: uti in patient with chronic dumas due to pseudomonas - levaquin, follow up ID benzo/baclofen toxicity or withdrawal restart meds at home dose MS with left hemiparesis continue antispasmotics, not in exacerbation dvt prophylaxis - lovenox full code reason for continued hospitalization: still not at baseline mental status Quality Stroke Does the patient have a stroke diagnosis?: No VTE Prior VTE?: No VTE Risk Level:: Medical - moderate - high VTE Device Contraindication: Treatment Not Indicated VTE Drug Contraindication: N/A - Med Ordered
[2021-12-12] MEDS: Aspirin 81 MG TAB.CHEW PO (10:32)
[2021-12-12] MEDS: Baclofen 20 MG TABLET PO ×4 (10:33→19:38)
[2021-12-12] MEDS: Gabapentin 400 MG CAPSULE PO ×2 (10:33→19:38)
[2021-12-12] MEDS: Cholecalciferol (Vitamin D3) 25 MCG TABLET PO (10:33)
--- NOTE | 2021-12-12 12:39 | MHC.CM.PN ---
Addendum entered by Anny Hinkle RN 12/12/21 13:00: CM MET W/PT AT BEDSIDE, PT REPORTS SHE WOULD LIKE TO RETURN HOME HOWEVER REPORTS SHE IS UNSURE IF HER WANTS HER TO AND REPORTS HE'S TELLING EVERYONE SHE 'S RUNNING AROUND ON [employer]OT[employer] YELLING AND ACTING CRAZY, PT'S ULTIMATE GOAL TO RETURN HOME W/RESUMP OF SERVICES. Original Note: EMR REVIEWED, PER PREVIOUS CM NOTES PT PREFERS [facility] FOR [facility] AND POSSIBLY LTC, PER HOSPITALIST PT NOT READY FOR D/C, REFERRAL PLACED TO [facility] AND WILL FOLLOW FOR D/C.
--- NOTE | 2021-12-12 13:01 | W.PM.IDCN ---
History of Present Illness Data of Consult Service Date: 12/12/21 Requesting physician: Jason Snyder Primary Care Provider: Unknown Physician HPI Reason for consult: confusion,chronic bacteriuria She [facility]/10 from [facility] treatment of leaking Marshall catheter. She has no fever or chills or abdominal pain but was given po Cipro per report. She reports no hematuria,just odor from urine and no fever or chills or confusion. She has said she may have changed time of taking benzo and baclofen. She has 1/2 gram positive cocci blood. Urine shows pansensitive Pseudomonas. Review of Systems Review of Systems: Yes all other systems are reviewed and are negative PMFSH Past Medical History Medical History (Updated 12/12/21 @ 13:06 by Glendy Booth MD) Bacteriuria COPD (chronic obstructive pulmonary disease) Diabetes Femoral distal fracture Fracture of left tibial plateau Frequent falls Gram-positive cocci bacteremia Hemiparesis of left nondominant side Hyperlipidemia Hypertension Left hemiparesis Left humeral fracture Multiple sclerosis Multiple sclerosis NSTEMI (non-ST elevated myocardial infarction) Physical deconditioning Polysubstance abuse Pyuria Seizure disorder UTI (urinary tract infection) Weakness Family History Family History Other Adopted Family history: reviewed and not pertinent Surgical History Surgical History No pertinent past surgical history Social History Social History Household Members: Unknown / Unable to assess Housing: Unknown / Unable to assess Alcohol intake: never Patient Tobacco Use Status: Never used Tobacco Tobacco use type: Cigarette Cigarette Packs Per Day: 0.5 Cigarettes Per Day: 10.0 Use of substances other than those prescribed or required for medical reasons: No Substance Use Type: Opiates Currently Displaying Signs/Symptoms of Drug Intoxication Withdrawal: No Have you been hit, kicked, punched, or otherwise hurt by someone within the past year? If so, by whom?: No Do you feel safe in your current relationship?: No Is there a partner from a previous relationship who is making you feel unsafe now?: No Are you made to feel afraid or neglected: No Advance Directives: Yes Advance Directives Information Provided: Yes Advance Directives on File: No Advance Directives Date on File: 04/10/20 Patient : No Poor oral hygiene: No service: No Current occupational status: retired [employer] Allergies Allergy/AdvReac Type Severity Reaction Status Date / Time No Known Allergies Allergy Verified 04/18/20 09:07 Active Medications: Current Medications Acetaminophen (Acetaminophen 325 Mg Tablet) 650 mg PO Q6H PRN PRN Reason: Pain, Mild (Pain Scale 1-3) Aspirin (Aspirin 81 Mg Tab.Chew) 81 mg PO DAILY [facility] Last Admin: 12/12/21 10:32 Dose: 81 mg Atorvastatin Calcium (Atorvastatin Calcium 20 Mg Tablet) 20 mg PO BEDTIME [facility] Baclofen (Baclofen 20 Mg Tablet) 20 mg PO QID [facility] Last Admin: 12/12/21 10:33 Dose: 20 mg Baclofen (Baclofen 20 Mg Tablet) 20 mg PO BEDTIME [facility] Carisoprodol (Carisoprodol 350 Mg Tablet) 350 mg PO TID PRN PRN Reason: Muscle Spasm Diazepam (Diazepam 5 Mg Tablet) 10 mg PO BEDTIME [facility] Enoxaparin Sodium (Enoxaparin Sodium 40 Mg/0.4 Ml Syringe) 40 mg SUBCUT Q24H [facility] Last Admin: 12/11/21 14:35 Dose: 40 mg Gabapentin (Gabapentin 400 Mg Capsule) 400 mg PO BID [facility] Last Admin: 12/12/21 10:33 Dose: 400 mg Pharmacy Consult (Consult Rx Perform Med Rec) 1 each MISCELLANE ONCE PRN PRN Reason: Consult order Sodium Chloride (0.9 % Sodium Chloride Flush 3 Ml Syringe) 3 ml IVFLUSH QSHIFT [facility] Last Admin: 12/12/21 10:33 Dose: 3 ml Vitamin D (Cholecalciferol (Vitamin D3) 25 Mcg Tablet) 25 mcg PO DAILY [facility] Last Admin: 12/12/21 10:33 Dose: 25 mcg Zolpidem Tartrate (Zolpidem Tartrate 5 Mg Tablet) 5 mg PO BEDTIME [facility] Home Medications Medication Instructions Recorded Confirmed Last Taken Type aspirin 81 mg chewable tablet 81 mg PO DAILY 06/09/21 12/11/21 12/10/21 History baclofen 20 mg tablet 20 mg PO BEDTIME 06/09/21 12/11/21 12/10/21 History baclofen 20 mg tablet 20 mg PO QID 06/09/21 12/11/21 12/11/21 History diazepam 5 mg tablet 10 mg PO BEDTIME 06/09/21 12/11/21 12/10/21 History simvastatin 40 mg tablet 40 mg PO BEDTIME 06/09/21 12/11/21 12/10/21 History zolpidem 10 mg tablet 10 mg PO BEDTIME 06/09/21 12/11/21 12/10/21 History carisoprodol 350 mg tablet (Soma) 350 mg PO TID PRN Muscle Spasm 06/23/21 12/11/21 12/10/21 History cholecalciferol (vitamin D3) 25 25 mcg PO DAILY 09/08/21 12/11/21 12/10/21 History mcg (1,000 unit) tablet (Vitamin D3) gabapentin 400 mg capsule 400 mg PO BID 11/25/21 12/11/21 12/10/21 History Physical Exam Vital Signs: Vital Signs: Last Vital Signs Temp 97.2 F 12/12/21 11:35 Pulse 95 12/12/21 11:35 Resp 18 12/12/21 11:35 BP 129/61 12/12/21 11:35 Pulse Ox 96 12/12/21 11:35 O2 Del Method 12/12/21 11:35 BMI result Body Mass Index 22.4 Const: General: cooperative HEENT: Head: Yes normal to inspection Face and sinus: Yes normal facial exam Mouth: Normal oral and palatal mucosa present Teeth and gingiva: dentition normal Eyes: General: appearance normal, both eyes and all related structures Pupils: Equal, round and reactive pupils present Resp: Effort & Inspection: normal respiratory effort Cardio: Rate: regular rate Rhythm: regular rhythm GI: Palpation (GI): Soft to palpation and nontender : General: Yes no CVA tenderness Back/Spine/Pelvis: Back: no CVA tenderness Skin: General skin exam: no rashes or lesions noted Neuro: Other: weakness bilateral lower extremities Cranial nerves: Yes Equal, round and reactive pupils present Extrem: General: Yes normal to inspection Psych: Appearance: grossly normal Results Labs CBC & Chem 7: 12/12/21 06:28 12/12/21 06:28 Labs: Short CBC 12/12/21 Range/Units 06:28 WBC 4.2 L (4.8-10.8) X10*3/uL Hgb 12.7 (12.0-16.0) g/dl Hct 38.6 (37.0-47.0) % Plt Count 340 (160-400) X10*3/uL BMP 12/12/21 06:28 Sodium 138 Potassium 4.2 Chloride 104 Carbon Dioxide 24 BUN 10 Creatinine 0.67 Calcium 8.7 Microbiology Microbiology Results: Microbiology 12/11/21 10:44 Blood - Venous Blood Culture - Preliminary Prelim: GPC Gram Stain only Assessment and Plan (1) Altered mental status: Status: Acute this may be due to changing dosage of baclofen or benzo no sepsis symptoms (2) Multiple sclerosis: Status: Acute (3) Pyuria: Status: Acute (4) Bacteriuria: Status: Acute pseudomonas always present (5) Gram-positive cocci bacteremia: Status: Acute possible contaminant Plan Stop Levaquin Await gram positive blood,may need Vancomycin if staph aureus.
[2021-12-12] MEDS: Enoxaparin Sodium 40 MG/0.4 ML SYRINGE SUBCUT (14:40)
[2021-12-12] MEDS: Atorvastatin Calcium 20 MG TABLET PO (19:39)
[2021-12-12] MEDS: Zolpidem Tartrate 5 MG TABLET PO (21:23)
[2021-12-12] MEDS: diazePAM 5 MG TABLET 10 MG PO (21:23)
[2021-12-12] MEDS: carisoprodoL 350 MG TABLET PO (21:26)
[2021-12-13] MEDS: 0.9 % Sodium Chloride Flush 3 ML SYRINGE IVFLUSH ×3 (01:40→17:12)
[2021-12-13 04:00] VITALS: BP 114/64; PULSE 80; RESP 18; TEMP 36.4; O2SAT 96
[2021-12-13 06:43] LABS: Hemoglobin 12.7 g/dl (12.0-16.0); Mean Corpuscular HGB Conc 33.4 g/dl (31.0-35.0); Mean Corpuscular Hemoglobin 30.6 pg (27.0-33.0); Mean Corpuscular Volume 91.6 fL (80.0-98.0); Mean Platelet Volume 9.6 fL (9.4-12.3); Platelet Count 334 X10*3/uL (160-400); Red Blood Count 4.15 X10*6/uL (4.20-5.50); Red Cell Distribution Width 14.3 % (11.0-16.0); White Blood Count 4.6 X10*3/uL (4.8-10.8)
[2021-12-13 07:04] LABS: Anion Gap 11 (12-20); Blood Urea Nitrogen 15 mg/dL (9-16); Calcium 8.6 mg/dL (8.4-10.2); Carbon Dioxide 27 mmol/L (22-29); Chloride 105 mmol/L (96-108); Creatinine Clr Calc Pharmacy 80.4; Estimated Glomerular Filt Rate > 60; Glucose Fasting 107 mg/dL (60-99); Potassium 4.1 mmol/L (3.3-5.1); Sodium 139 mmol/L (135-145)
[2021-12-13 07:20] VITALS: BP 134/65; PULSE 84; RESP 17; TEMP 36.1; O2SAT 93
--- NOTE | 2021-12-13 09:01 | P.DS_ITS ---
DS: Providers Provider Date of Service: 12/13/21 Date of admission: 12/11/21 13:54 Primary care physician: Unknown Physician Consults: 12/11/21 13:53 Consult to Infectious Diseases Routine Consulting Provider: Glendy Booth Reason for consultation: bacturia, chronic dumas, ams DS: Diagnosis Discharge Diagnosis (1) Altered mental status: Status: Acute (2) Multiple sclerosis: Status: Acute (3) Pyuria: Status: Acute (4) Bacteriuria: Status: Acute (5) Gram-positive cocci bacteremia: Status: Acute DS: Summary Hospital Course Hospital Course: from intial hpi: Chief Complaint: ams 61F ? Presented with altered mental status.? Patient had been in ED day prior to presentation for malodorous urine and chronic Dumas, previous cultures have grown Klebsiella and Pseudomonas, was placed on Cipro, on day of presentation patient was noted to be confused with nonsensical speech so brought back to the ED. in ED patient afebrile, WBC normal, ? CT head unremarkable.? Patient reports not taking her regular dose of diazepam and baclofen, however this is unreliable.? She denies any chest pain, fever, chills, shortness of breath. hospital course: Patient was admitted for toxic metabolic encephalopathy. Initially was treated for urinary tract infection in a patient with chronic Dumas with Levaquin, urine culture grew out Pseudomonas. Id was consulted who felt this was likely colonization recommended discontinuing Levaquin. More likely symptoms were due to medication withdrawal, patient is normally on diazepam and baclofen and was not taking her usual doses. These were restarted under mental status returned to baseline. For her MS and left hemiparesis she was continued on antispasmodics. Patient is now back to baseline will be discharged home. Time Spent with Patient Time attestation: Total time spent providing and/or coordinating discharge services: Discharge coordination time: Greater than 30 minutes Quality: Safe Use of Opioids Does Pt have an Active Cancer Diagnosis on the Problem List?: No Quality: Stroke Does the patient have a stroke diagnosis?: No Physical Exam Vital Signs: Vital Signs: Last Vital Signs Temp 96.9 F 12/13/21 07:20 Pulse 84 12/13/21 07:20 Resp 17 12/13/21 07:20 BP 134/65 12/13/21 07:20 Pulse Ox 93 12/13/21 07:20 O2 Del Method 12/13/21 07:20 BMI result Body Mass Index 22.4 General: AO X 3, NAD Resp: CTA bilateral, no accessory muscles used CVS: S1,S2,RRR GI: soft, non tender, non distended Neuro: left hemiparesis, alert Psych: appropriate affect, adequate insight DS: Data Data Completed and Pending Completed studies during hospitalization [Text1]: Procedures Insertion of Infusion Device into Right Cephalic Vein, Percutaneous Approach (07/13/21) Labs on day of discharge: Laboratory Results - last 24 hr 12/13/21 12/13/21 05:34 05:34 WBC 4.6 L RBC 4.15 L Hgb 12.7 Hct 38.0 MCV 91.6 MCH 30.6 MCHC 33.4 RDW 14.3 Plt Count 334 MPV 9.6 Absolute Nucleated RBC 0.000 Nucleated RBC % (auto) 0.0 Sodium 139 Potassium 4.1 Chloride 105 Carbon Dioxide 27 Anion Gap 11 L BUN 15 Creatinine 0.67 Estim Creat Clear Calc 80.4 Estimated GFR > 60 Fasting Glucose 107 H Calcium 8.6 Preliminary micro results at discharge 12/11/21 11:19 Blood Culture - Preliminary Blood - Venous No growth after 24 hours. 12/11/21 10:44 Blood Culture - Preliminary Blood - Venous Prelim: GPC Gram Stain only Discharge Plan Discharge Patient Disposition: Home, Self-Care Discharge Diagnosis: ams Referrals: Physician,Unknown J [Primary Care Provider] - 1 Week Discharge Medications: Continued zolpidem 10 mg Tablet 10 mg PO BEDTIME aspirin 81 mg Tablet,Chewable 81 mg PO DAILY diazepam 5 mg Tablet 10 mg PO BEDTIME simvastatin 40 mg Tablet 40 mg PO BEDTIME baclofen 20 mg Tablet 20 mg PO QID baclofen 20 mg Tablet 20 mg PO BEDTIME Rx Instructions: total bedtime dose 40 mg carisoprodol [Soma] 350 mg Tablet 350 mg PO TID PRN (Reason: Muscle Spasm) gabapentin 400 mg Capsule 400 mg PO BID cholecalciferol (vitamin D3) [Vitamin D3] 25 mcg (1,000 unit) Tablet 25 mcg PO DAILY Discharge Orders: Discharge Order (Routine); Ordered 12/13/21 Ordered By: Jason nSyder Diet: Advance to usual diet Activity on Discharge: As tolerated Stand Alone Forms: Patient Portal Discharge page Print Language: [place] Care Plan Goals: recovery Health Concerns: * ams Plan of Treatment: take meds as prescribed Assessment: see above
[2021-12-13] MEDS: Aspirin 81 MG TAB.CHEW PO (09:48)
[2021-12-13] MEDS: Gabapentin 400 MG CAPSULE PO ×2 (09:48→21:08)
--- NOTE | 2021-12-13 09:48 | MHC.CM.PN ---
CM MET WITH PT WHO IS AWARE SHE WILL DC TODAY SHE REPORTS SHE WOULD LIKE TO GO HOME EARLY POSSIBLE SHE REPORTS SHE NEEDS BLS TRANSPORT SHE IS AWARE BLS WILL BE REQUESTED FOR 1200 HOURS, SHE WAS CALLING HER AT THAT TIME TO INFORM HIM.
[2021-12-13] MEDS: Cholecalciferol (Vitamin D3) 25 MCG TABLET PO (09:49)
[2021-12-13] MEDS: Baclofen 20 MG TABLET PO ×5 (09:49→21:11)
[2021-12-13 11:17] VITALS: BP 122/59; PULSE 82; RESP 17; TEMP 36.6; O2SAT 95
[2021-12-13 15:31] VITALS: BP 126/56; PULSE 84; RESP 16; TEMP 36.7; O2SAT 96
[2021-12-13] MEDS: carisoprodoL 350 MG TABLET PO (18:39)
[2021-12-13 20:00] VITALS: BP 117/60; PULSE 82; RESP 17; TEMP 36.2; O2SAT 95
[2021-12-13] MEDS: Atorvastatin Calcium 20 MG TABLET PO (21:09)
== END 2021-12-14 00:08 | disposition home or self-care (01) | DRG 92 ==
LOC: HO.ED 13:43 → HO.EDOVER 14:13 → HO.S3 17:49
PROVIDERS: Physician Assistant Medical; Admitting Provider Internal Medicine; Emergency Provider Emergency Medicine; PCP Internal Medicine; Visit Provider Internal Medicine
DX: G92.8 Other toxic encephalopathy (principal); F19.930 Other psychoactive substance use, unspecified with withdrawal, uncomplicated; G81.94 Hemiplegia, unspecified affecting left nondominant side; T42.8X6A Underdosing of antiparkinsonism drugs and other central muscle-tone depressants, initial encounter; T42.4X6A Underdosing of benzodiazepines, initial encounter; G35 Multiple sclerosis; I25.2 Old myocardial infarction; G40.909 Epilepsy, unspecified, not intractable, without status epilepticus; Z20.822 Contact with and (suspected) exposure to COVID-19; Z79.82 Long term (current) use of aspirin; Z79.899 Other long term (current) drug therapy
CPT/HCPCS: 36415; 70450; 71046; 80048; 80053; 80307; 81001; 82077; 83605; 83735; 84484; 85025; 85027; 87040; 87077; 87186; 87205; 87502; 87635; 93005; 96365; 99285; C1758; J1335; J1650; J1956

== ENCOUNTER 2021-12-26 08:00 | Emergency (ER) | payer MEDICARE, OTHER, SELFPAY ==
[2021-12-26 08:13] VITALS: BP 136/88; PULSE 90; O2SAT 99
[2021-12-26 08:20] VITALS: BP 149/76; PULSE 86; RESP 16; TEMP 36.3; O2SAT 97; BMI 22.6
--- NOTE | 2021-12-26 09:06 | ED.GENADULT ---
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 Patient states her Marshall bag fell off at home, and that she has no visiting nursing to help her. Patient also states she has a rash in her groin. Patient has had no fevers, chest pain, shortness of breath, abdominal pain, nausea, vomiting, diarrhea Patient tells me she has an appointment with her PCP in 2 weeks to set up visiting nursing at home. Related Data Home Medications Medication Instructions Recorded Confirmed aspirin 81 mg chewable tablet 81 mg PO DAILY 06/09/21 12/11/21 baclofen 20 mg tablet 20 mg PO BEDTIME 06/09/21 12/11/21 baclofen 20 mg tablet 20 mg PO QID 06/09/21 12/11/21 diazepam 5 mg tablet 10 mg PO BEDTIME 06/09/21 12/11/21 simvastatin 40 mg tablet 40 mg PO BEDTIME 06/09/21 12/11/21 zolpidem 10 mg tablet 10 mg PO BEDTIME 06/09/21 12/11/21 carisoprodol 350 mg tablet (Soma) 350 mg PO TID PRN Muscle Spasm 06/23/21 12/11/21 cholecalciferol (vitamin D3) 25 25 mcg PO DAILY 09/08/21 12/11/21 mcg (1,000 unit) tablet (Vitamin D3) gabapentin 400 mg capsule 400 mg PO BID 11/25/21 12/11/21 Previous Rx's Medication Instructions Recorded cephalexin 500 mg capsule 500 mg PO QID 7 days #28 caps 12/26/21 ketoconazole 2 % topical cream 1 appl topical BID #60 grams 12/26/21 Allergies Allergy/AdvReac Type Severity Reaction Status Date / Time No Known Allergies Allergy Verified 04/18/20 09:07 Review of Systems Constitutional: Constitutional: Denies body ache(s), Denies chills, Denies fatigue, Denies fever(s) and Denies malaise Eyes: Eyes: Denies diplopia ENT: Denies dizziness Cardiovascular: Cardiovascular: Denies chest pain, Denies syncope, Denies leg edema, Denies lightheadedness, Denies Loss of Consciousness, Denies palpitations and Denies dyspnea Respiratory: Respiratory: Denies chest congestion, Denies cough and Denies dyspnea Gastrointestinal: Gastrointestinal: Denies abdominal pain, Denies hematochezia, Denies constipation, Denies diarrhea and Denies vomiting Genitourinary: Genitourinary: Reports difficulty voiding, Denies dysuria, Denies pelvic pain and Denies flank pain Comments: Problem with Marshall catheter Musculoskeletal: Musculoskeletal: Reports no additional musculoskeletal complaints and Denies numbness Integumentary/Breasts: Skin/Breast: Reports erythema and Reports rash Neurologic: Denies confusion, Denies dizziness, Denies syncope and Denies numbness Psychiatric: Psychiatric: Denies anxiety, Denies confusion and Denies depression Endocrine: Endocrine: Denies fatigue and Denies palpitations PMFSH Past Medical History Medical History Bacteriuria COPD (chronic obstructive pulmonary disease) Diabetes Femoral distal fracture Fracture of left tibial plateau Frequent falls Gram-positive cocci bacteremia Hemiparesis of left nondominant side Hyperlipidemia Hypertension Left hemiparesis Left humeral fracture Multiple sclerosis Multiple sclerosis NSTEMI (non-ST elevated myocardial infarction) Physical deconditioning Polysubstance abuse Pyuria Seizure disorder UTI (urinary tract infection) Weakness Surgical History No pertinent past surgical history Family History Family History Other Adopted Social History Social History Household Members: Unknown / Unable to assess Housing: Unknown / Unable to assess Alcohol intake: never Patient Tobacco Use Status: Never used Tobacco Tobacco use type: Cigarette Cigarette Packs Per Day: 0.5 Cigarettes Per Day: 10.0 Substance Use Type: Opiates Advance Directives: Yes Advance Directives on File: Yes Advance Directives Date on File: 04/10/20 service: No Current occupational status: retired Physical Exam ED Vital Signs: Vital Signs - 24 hr 12/26/21 08:20 12/26/21 11:43 Temperature 97.3 F 97.4 F Pulse Rate 86 74 Respiratory Rate 16 18 Blood Pressure 149/76 H 136/73 Pulse Oximetry 97 96 Oxygen Delivery Method Room Air Room Air BMI result Body Mass Index 22.6 Const General: No confusion Nutritional Appearance: well nourished Orientation/consciousness: No confusion Limitations: no limitations Eyes Conjunctivae: conjunctivae normal Pupils: Equal, round and reactive pupils present EOM: EOMs intact bilaterally Neck Neck: Yes full ROM, Yes no lymphadenopathy and Yes supple Resp Effort & Inspection: normal respiratory effort and able to speak in complete sentences Auscultation: clear to auscultation bilaterally, no crackles, no rales, no rhonchi and no wheezes Cardio Rate: regular rate Rhythm: regular rhythm Heart sounds: S1 normal heart sound present and S2 normal heart sound present GI Inspection: Yes normal to inspection Palpation (GI): Soft to palpation, nontender, no guarding and not rigid Percussion: Yes normal to percussion Auscultation: normal bowel sounds General: Yes no CVA tenderness Back/Spine/Pelvis Back: no CVA tenderness Skin Other: Intertriginous rash in patient's bilateral inguinal creases and gluteal cleft Neuro General: No confusion Cranial nerves: Yes Equal, round and reactive pupils present Psych Appearance: grossly normal Affect: normal affect Attitude: cooperative Thought process: Normal thought process present Course Course Course Narrative: And 61-year-old female presents for Marshall catheter problem and rash in her groin. On exam, patient has stable vitals, no abdominal pain, patient's Marshall is in place, but the tip is draining into a urinal, there is no bag. In addition, patient has intertriginous red yeasty rash in her bilateral inguinal area and gluteal cleft surrounding her anus. Nursing replaced Marshall catheter. Urine culture on 12/10/2021 showed greater than 100,000 colony-forming units of Pseudomonas aeruginosa, which was susceptible to all antibiotics Urine shows white blood cells and leukocyte esterase, will treat intertriginous candidiasis with Keflex and fluconazole, Keflex also treat UTI Consulted case management, case management will connect the patient with visiting nursing services, although case management tells me she thinks patient may already have services Patient awaiting ambulance transfer back home. Medical Decision Making Lab Data Labs: Lab Results 12/26/21 Range/Units 10:08 Urine Color STRAW Urine Appearance HAZY Urine pH 6.5 (5.0-8.0) Ur Specific [place] 1.015 (1.005-1.025) Urine Protein NEG (NEG-TRACE) MG/DL Urine Glucose (UA) NEG (NEG) MG/DL Urine Ketones NEG (NEG) MG/DL Urine Blood TRACE (NEG) Urine Nitrite NEG (NEG) Ur Leukocyte Esterase 1+ H (NEG) Urine RBC 1-4 (0) /HPF Urine WBC 15-29 H (0-4) /HPF Ur Squamous Epith Cells 2+ /LPF Ur Renal Epithelial Cell 1+ /LPF Urine Bacteria 1+ /LPF Urine Mucus 1+ /LPF Discharge Plan Discharge Clinical Impression: Complication of Marshall catheter, Intertriginous candidiasis, Cellulitis, UTI (urinary tract infection) Patient Disposition: Home, Self-Care Instructions: Urinary Tract Infection in Women (ED), Cellulitis (ED), Marshall Catheter Placement and Care (ED), Chronic Urinary Retention in Women (ED), Skin Yeast Infection (ED) Additional Instructions: To treat the rash in your groin, please wash morning and night with soap and water, pat dry, apply the ketoconazole cream, and then apply Desitin diaper cream over it. Do that in the creases severe groin, and your buttock and anal area. Please also take the cephalexin I prescribed as an antibiotic. Please call your primary care for follow-up appointment from today's emergency room visit. Please follow-up with visiting nursing for your Marshall catheter care. Your urine today showed infection. The cephalexin we are using for your rash well also treat your urine. Please follow-up with your primary care provider, and return to the emergency room for any new or concerning symptoms. Prescriptions: New cephalexin 500 mg capsule 500 mg PO QID 7 Days Qty: 28 0RF ketoconazole 2 % cream 1 appl topical BID Qty: 60 1RF No Action zolpidem 10 mg Tablet 10 mg PO BEDTIME aspirin 81 mg Tablet,Chewable 81 mg PO DAILY diazepam 5 mg Tablet 10 mg PO BEDTIME simvastatin 40 mg Tablet 40 mg PO BEDTIME baclofen 20 mg Tablet 20 mg PO QID baclofen 20 mg Tablet 20 mg PO BEDTIME Rx Instructions: total bedtime dose 40 mg carisoprodol [Soma] 350 mg Tablet 350 mg PO TID PRN (Reason: Muscle Spasm) gabapentin 400 mg Capsule 400 mg PO BID cholecalciferol (vitamin D3) [Vitamin D3] 25 mcg (1,000 unit) Tablet 25 mcg PO DAILY
[2021-12-26 10:22] LABS: Appearance Urine HAZY; Color Urine STRAW; Glucose Urine UA NEG (NEG); Leukocyte Esterase Urine 1+ (NEG); Nitrite Urine NEG (NEG); PH 6.5 (5.0-8.0); Specific Gravity - Urine 1.015 (1.005-1.025); UACC Culture Trigger YES; Urine Blood TRACE (NEG); Urine Ketones NEG (NEG); Urine Protein NEG (NEG-TRACE)
[2021-12-26 11:15] LABS: Bacteria Urine 1+ /LPF; Mucus Urine 1+ /LPF; Renal Epithelial Cells Urine 1+ /LPF; Squamous Epithelial Cell Urine 2+ /LPF
[2021-12-26 11:43] VITALS: BP 136/73; PULSE 74; RESP 18; TEMP 36.3; O2SAT 96
--- NOTE | 2021-12-31 15:17 | ED.GENADULT ---
HPI - General Adult General Chief complaint: General Medical Stated complaint: F/C ISSUE PER EMS Time Seen by Provider: 12/26/21 09:05 Source: patient Mode of arrival: EMS Limitations: physical limitation (Cannot walk due to MS) Related Data Home Medications Medication Instructions Recorded Confirmed aspirin 81 mg chewable tablet 81 mg PO DAILY 06/09/21 12/11/21 baclofen 20 mg tablet 20 mg PO BEDTIME 06/09/21 12/11/21 baclofen 20 mg tablet 20 mg PO QID 06/09/21 12/11/21 diazepam 5 mg tablet 10 mg PO BEDTIME 06/09/21 12/11/21 simvastatin 40 mg tablet 40 mg PO BEDTIME 06/09/21 12/11/21 zolpidem 10 mg tablet 10 mg PO BEDTIME 06/09/21 12/11/21 carisoprodol 350 mg tablet (Soma) 350 mg PO TID PRN Muscle Spasm 06/23/21 12/11/21 cholecalciferol (vitamin D3) 25 25 mcg PO DAILY 09/08/21 12/11/21 mcg (1,000 unit) tablet (Vitamin D3) gabapentin 400 mg capsule 400 mg PO BID 11/25/21 12/11/21 Previous Rx's Medication Instructions Recorded cephalexin 500 mg capsule 500 mg PO QID 7 days #28 caps 12/26/21 ketoconazole 2 % topical cream 1 appl topical BID #60 grams 12/26/21 sulfamethoxazole 800 1 tab PO BID 7 days #14 tabs 12/31/21 mg-trimethoprim 160 mg tablet (Bactrim DS) Allergies Allergy/AdvReac Type Severity Reaction Status Date / Time No Known Allergies Allergy Verified 04/18/20 09:07 [facility] Past Medical History Medical History Bacteriuria COPD (chronic obstructive pulmonary disease) Diabetes Femoral distal fracture Fracture of left tibial plateau Frequent falls Gram-positive cocci bacteremia Hemiparesis of left nondominant side Hyperlipidemia Hypertension Left hemiparesis Left humeral fracture Multiple sclerosis Multiple sclerosis NSTEMI (non-ST elevated myocardial infarction) Physical deconditioning Polysubstance abuse Pyuria Seizure disorder UTI (urinary tract infection) Weakness Surgical History No pertinent past surgical history Family History Family History Other Adopted Social History Social History Household Members: Unknown / Unable to assess Housing: Unknown / Unable to assess Alcohol intake: never Patient Tobacco Use Status: Never used Tobacco Tobacco use type: Cigarette Cigarette Packs Per Day: 0.5 Cigarettes Per Day: 10.0 Substance Use Type: Opiates Advance Directives Date on File: 04/10/20 service: No Current occupational status: retired Physical Exam ED Vital Signs: BMI result Body Mass Index 22.6 Medical Decision Making Lab Data Labs: Lab Results 12/26/21 Range/Units 10:08 Urine Color STRAW Urine Appearance HAZY Urine pH 6.5 (5.0-8.0) Ur Specific [place] 1.015 (1.005-1.025) Urine Protein NEG (NEG-TRACE) MG/DL Urine Glucose (UA) NEG (NEG) MG/DL Urine Ketones NEG (NEG) MG/DL Urine Blood TRACE (NEG) Urine Nitrite NEG (NEG) Ur Leukocyte Esterase 1+ H (NEG) Urine RBC 1-4 (0) /HPF Urine WBC 15-29 H (0-4) /HPF Ur Squamous Epith Cells 2+ /LPF Ur Renal Epithelial Cell 1+ /LPF Urine Bacteria 1+ /LPF Urine Mucus 1+ /LPF Discharge Plan Discharge Clinical Impression: Complication of Marshall catheter, Intertriginous candidiasis, Cellulitis, UTI (urinary tract infection) Patient Disposition: Home, Self-Care Instructions: Urinary Tract Infection in Women (ED), Cellulitis (ED), Marshall Catheter Placement and Care (ED), Chronic Urinary Retention in Women (ED), Skin Yeast Infection (ED) Additional Instructions: To treat the rash in your groin, please wash morning and night with soap and water, pat dry, apply the ketoconazole cream, and then apply Desitin diaper cream over it. Do that in the creases severe groin, and your buttock and anal area. Please also take the cephalexin I prescribed as an antibiotic. Please call your primary care for follow-up appointment from today's emergency room visit. Please follow-up with visiting nursing for your Marshall catheter care. Your urine today showed infection. The cephalexin we are using for your rash well also treat your urine. Please follow-up with your primary care provider, and return to the emergency room for any new or concerning symptoms. Prescriptions: New cephalexin 500 mg capsule 500 mg PO QID 7 Days Qty: 28 0RF ketoconazole 2 % cream 1 appl topical BID Qty: 60 1RF sulfamethoxazole-trimethoprim [Bactrim DS] 800-160 mg tablet 1 tab PO BID 7 Days Qty: 14 0RF No Action zolpidem 10 mg Tablet 10 mg PO BEDTIME aspirin 81 mg Tablet,Chewable 81 mg PO DAILY diazepam 5 mg Tablet 10 mg PO BEDTIME simvastatin 40 mg Tablet 40 mg PO BEDTIME baclofen 20 mg Tablet 20 mg PO QID baclofen 20 mg Tablet 20 mg PO BEDTIME Rx Instructions: total bedtime dose 40 mg carisoprodol [Soma] 350 mg Tablet 350 mg PO TID PRN (Reason: Muscle Spasm) gabapentin 400 mg Capsule 400 mg PO BID cholecalciferol (vitamin D3) [Vitamin D3] 25 mcg (1,000 unit) Tablet 25 mcg PO DAILY Referrals: Nilesh GOMEZ [Outside] Interventions: ED Discharge Assessment Last Done: 12/26/21 15:16 Discharge Date/Time: 12/26/21 15:20
== END 2021-12-26 15:20 | disposition home or self-care (01) ==
PROVIDERS: Physician Assistant; Emergency Provider Emergency Medicine Emergency Medical Services; PCP Internal Medicine
DX: Z46.6 Encounter for fitting and adjustment of urinary device (principal); N39.0 Urinary tract infection, site not specified; B96.20 Unspecified Escherichia coli [E. coli] as the cause of diseases classified elsewhere; L03.314 Cellulitis of groin; B37.2 Candidiasis of skin and nail; E11.9 Type 2 diabetes mellitus without complications; I10 Essential (primary) hypertension; E78.5 Hyperlipidemia, unspecified; G35 Multiple sclerosis; Z79.82 Long term (current) use of aspirin; Z79.02 Long term (current) use of antithrombotics/antiplatelets; Z79.899 Other long term (current) drug therapy; F17.210 Nicotine dependence, cigarettes, uncomplicated
CPT/HCPCS: 51702; 81001; 81003; 87086; 87088; 87186; 99284

== ENCOUNTER 2022-01-06 19:19 | Inpatient (IN) | payer MEDICARE, OTHER, SELFPAY ==
--- NOTE | ~2022-01-06 | CT_ITS ---
EXAMINATION: CT ABDOMEN AND PELVIS WITHOUT CONTRAST CLINICAL INFORMATION: Fall. Rule out fracture. COMPARISON: None TECHNIQUE: Multidetector volumetric imaging was performed from the superior aspect of the liver through the pubic symphysis. Sagittal and coronal reformatted images were obtained on the technologist's workstation. This CT examination was performed using dose optimization techniques as appropriate, variously including the following: *Automated exposure control *Adjustment of mA and/or kV according to patient size (this includes techniques or standardized protocols for targeted exams where dose is matched to indication/reason for exam; i.e. extremities or head) *Use of iterative reconstruction technique DLP: 876 mGy-cm FINDINGS: LUNG BASES: The visualized lung bases are unremarkable. LIVER, GALLBLADDER, AND BILIARY TREE: The liver is normal in size, shape, and attenuation. No focal hepatic lesion or biliary ductal dilatation is present. The gallbladder is unremarkable with no evidence of radiopaque gallstones, gallbladder wall thickening, or obvious pericholecystic inflammatory changes. PANCREAS: There is a lobulated contour to the tail of the pancreas. This is an old exams. The pancreas is otherwise unremarkable. SPLEEN: Unremarkable. ADRENAL GLANDS: Unremarkable. KIDNEYS AND URETERS: The kidneys are normal in size, shape, and attenuation. No hydronephrosis, hydroureter, or calculi seen. No perinephric stranding. BLADDER: There is a Marshall catheter in the bladder. GASTROINTESTINAL TRACT: The small and large bowel are unremarkable. The appendix is unremarkable. No ascites or free air. ABDOMINAL WALL: No significant hernia is appreciated. LYMPH NODES: Normal. VASCULAR: Unremarkable. PELVIC VISCERA: Unremarkable. OSSEOUS STRUCTURES: Unremarkable. No fracture. CT/CT abdomen pelvis wo con IMPRESSION: No acute findings. Fleischner guidelines were followed.
--- NOTE | ~2022-01-06 | CT_ITS ---
EXAMINATION: CT CHEST WITHOUT CONTRAST CLINICAL INFORMATION: Fall. Rule out fracture. COMPARISON: Previous chest CT July 2021 and chest x-ray most recent December 2021 TECHNIQUE: Multidetector volumetric CT imaging of the chest was done. Axial MIP volume rendering provided. Sagittal and coronal reformatted images were obtained. This CT examination was performed using dose optimization techniques as appropriate, variously including the following: *Automated exposure control *Adjustment of mA and/or kV according to patient size (this includes techniques or standardized protocols for targeted exams where dose is matched to indication/reason for exam; i.e. extremities or head) *Use of iterative reconstruction technique DLP: 345 mGy-cm FINDINGS: LUNGS: The lungs are clear with no evidence of inflammation or nodules. MEDIASTINUM: There is mild coronary artery calcification. The mediastinum is otherwise normal. PLEURA: There is no pleural effusion. No pleural mass or thickening. No pneumothorax. AXILLA: No lymphadenopathy. UPPER ABDOMEN: Unremarkable. OSSEOUS STRUCTURES: Degenerative changes of the spine. No fracture. CT/CT chest wo con IMPRESSION: No acute findings. Fleischner guidelines were followed.
--- NOTE | ~2022-01-06 | CT_ITS ---
EXAMINATION: HEAD CT WITHOUT CONTRAST CERVICAL SPINE CT WITHOUT CONTRAST CLINICAL INFORMATION: Fall 3 times today. Pain. Rule out fracture. COMPARISON: 12/11/2021 TECHNIQUE: Contiguous axial imaging of the head was performed without the administration of IV contrast. Axial multidetector volumetric images were also performed through the cervical spine without intravenous contrast. Multiplanar reconstructed images in coronal and sagittal orientations were submitted. This CT examination was performed using dose optimization techniques as appropriate, variously including the following: *Automated exposure control *Adjustment of mA and/or kV according to patient size (this includes techniques or standardized protocols for targeted exams where dose is matched to indication/reason for exam; i.e. extremities or head) *Use of iterative reconstruction technique DOSE: 2151 mGy-cm FINDINGS: HEAD: There is no evidence of acute intracranial hemorrhage or territorial infarction. No abnormal mass-effect or midline shift. No extra-axial fluid collections. Verdugo to white matter differentiation is well preserved. The ventricles are normal in size and configuration. Numerous foci of hypoattenuation in the subcortical and periventricular white matter are likely correlate with the patient's known demyelinating disease. A perivascular space is evident in the right basal ganglia at the level of the anterior commissure. Mild hyperostosis frontalis interna. No acute osseous findings. Soft tissues are unremarkable. The sinuses and mastoid air cells are clear. CERVICAL SPINE: Vertebral body heights are normal. No fractures of the vertebral bodies or posterior elements. There is rotation of the cervical spine at the level of C1-C2, likely related to head positioning. No acute spondylolisthesis or appreciable traumatic subluxation. There is grade 1 anterolisthesis of C3 and C4 and C4 on C5, related to the facet arthropathy at these levels. Additional anterolisthesis is noted at C7-T1 and T1-T2, also related significant facet arthropathy. Degenerative osteophytes and sclerosis are present at the atlantodental articulation, though normal alignment is maintained. Craniocervical junction is normal. Moderate degenerative disc disease is most notable at C5-C6 and C6-C7 with loss of intervertebral disc height, end plate osteophytes, uncovertebral osteophytes, and ossification of the posterior longitudinal ligament. Multilevel facet arthropathy is most pronounced at the C3-C4 and C4-C5 on the left and on the right from C2-C3 through C5-C6 and at C7-T1. The ossified posterior longitudinal ligament at C5-C6 and C6-C7 contributes to at least mild central canal stenosis. There is significant neural foraminal encroachment at C5-C6 and C6-C7 bilaterally due to uncovertebral osteophytes. No significant paravertebral soft tissue swelling. Cervical soft tissues are unremarkable. Imaged portions of the lung apices are clear. CT/CT cervical spine wo con IMPRESSION: 1. No acute intracranial pathology. Chronic multifocal white matter hypoattenuation consistent with known history of multiple sclerosis. 2. No acute fracture or acute malalignment in the cervical spine. Multilevel degenerative spondylosis.
[2022-01-06 19:27] VITALS: BP 132/58; PULSE 88; RESP 16; TEMP 37.2; O2SAT 94; BMI 24.4
[2022-01-06 19:32] VITALS: BP 135/70; PULSE 88; RESP 16; TEMP 37.2; O2SAT 97
[2022-01-06] MEDS: 0.9 % Sodium Chloride 1,000 ML 999 ML IV (20:07)
--- NOTE | 2022-01-06 20:08 | ED_ITS ---
HPI - General Adult General Chief complaint: Weakness Stated complaint: falls Time Seen by Provider: 01/06/22 19:32 Source: patient Mode of arrival: ambulatory Limitations: no limitations History of Present Illness HPI narrative: 61 yook juarez with pmh of MS, and chronic left side weakness due to CVA presented to the ED 4 episodes of fall today due to worsening generalized weakness as per EMS and patient's . EmS went to patient's home 3 times and she refused to come to the hospital with them. On 4th call patient agreed to come to the ED. No fever, abdominal pain, or URi symptoms. Ems states s tates her weakness has progressed the past couple of weeks. Patient herself states feeling weakness of the past ten years. Related Data Home Medications Medication Instructions Recorded Confirmed aspirin 81 mg chewable tablet 81 mg PO DAILY 06/09/21 12/11/21 baclofen 20 mg tablet 20 mg PO BEDTIME 06/09/21 12/11/21 baclofen 20 mg tablet 20 mg PO QID 06/09/21 12/11/21 diazepam 5 mg tablet 10 mg PO BEDTIME 06/09/21 12/11/21 simvastatin 40 mg tablet 40 mg PO BEDTIME 06/09/21 12/11/21 zolpidem 10 mg tablet 10 mg PO BEDTIME 06/09/21 12/11/21 carisoprodol 350 mg tablet (Soma) 350 mg PO TID PRN Muscle Spasm 06/23/21 12/11/21 cholecalciferol (vitamin D3) 25 25 mcg PO DAILY 09/08/21 12/11/21 mcg (1,000 unit) tablet (Vitamin D3) gabapentin 400 mg capsule 400 mg PO BID 11/25/21 12/11/21 Previous Rx's Medication Instructions Recorded cephalexin 500 mg capsule 500 mg PO QID 7 days #28 caps 12/26/21 ketoconazole 2 % topical cream 1 appl topical BID #60 grams 12/26/21 sulfamethoxazole 800 1 tab PO BID 7 days #14 tabs 12/31/21 mg-trimethoprim 160 mg tablet (Bactrim DS) Allergies Allergy/AdvReac Type Severity Reaction Status Date / Time No Known Allergies Allergy Verified 04/18/20 09:07 Review of Systems Review of Systems: generalized weakness Yes all other systems are reviewed and are negative [facility] Past Medical History Medical History Bacteriuria COPD (chronic obstructive pulmonary disease) Diabetes Femoral distal fracture Fracture of left tibial plateau Frequent falls Gram-positive cocci bacteremia Hemiparesis of left nondominant side Hyperlipidemia Hypertension Left hemiparesis Left humeral fracture Multiple sclerosis Multiple sclerosis NSTEMI (non-ST elevated myocardial infarction) Physical deconditioning Polysubstance abuse Pyuria Seizure disorder UTI (urinary tract infection) Weakness Surgical History No pertinent past surgical history Family History Family History Other Adopted Social History Social History Household Members: Unknown / Unable to assess Housing: Unknown / Unable to assess Alcohol intake: never Patient Tobacco Use Status: Never used Tobacco Tobacco use type: Cigarette Cigarette Packs Per Day: 0.5 Cigarettes Per Day: 10.0 Substance Use Type: Opiates Advance Directives: Yes Advance Directives on File: Yes Advance Directives Date on File: 04/10/20 service: No Current occupational status: retired Physical Exam ED Vital Signs: Vital Signs - 24 hr 01/06/22 19:27 01/06/22 19:32 Temperature 98.9 F 98.9 F Pulse Rate 88 88 Respiratory Rate 16 16 Blood Pressure 132/58 L 135/70 Pulse Oximetry 94 97 Oxygen Delivery Method Room Air Room Air BMI result Body Mass Index 24.4 Const Other: lethargic HENMT Head: Yes normal to inspection, Yes No palpable skull fracture present, Yes normocephalic and No atraumatic Eyes General: appearance normal, both eyes and all related structures Neck Neck: Yes normal visual inspection, Yes full ROM, Yes no lymphadenopathy, Yes no meningeal signs, Yes trachea midline, No supple and No anterior neck swelling Chest Chest palpation & inspection: normal inspection of the chest and normal palpation of entire chest wall Resp Effort & Inspection: normal respiratory effort and able to speak in complete sentences Cardio Jugular venous distension: no JVD Heart sounds: S1 normal heart sound present and S2 normal heart sound present GI Inspection: Yes normal to inspection and No abdominal wall ecchymosis Palpation (GI): Soft to palpation, not firm, nontender and no guarding General: No CVA tenderness and Yes no CVA tenderness Back/Spine/Pelvis Back: no CVA tenderness, No CVA tenderness and No sacral edema Skin Other: rash on abdomen/left groin Neuro Other: chronic left sided weakness General: no meningeal signs Extrem General: Yes normal to inspection and Yes full ROM Psych Appearance: grossly normal, well kempt and not disheveled Course Course Course Narrative: Will look for source of infection with labs chest CT and UA. Will do head CT/Cervical/Abdomen/Chest CT due to fall. WIll ordered fluids, EKG, troponin, and CPK Reevaluation(s) Reevaluation #1: EKG negative STEMI. Labs negative white blood cell count elevation. Lactic acid negative. The urine came back positive for UTI with patient being lethargic increased weakness. Patient should be admitted and will be admitted. Hospitalist accepted case. Not able to contact . Antibiotic started. images are normal Time: 01:18 Medical Decision Making MDM Narrative Medical decision making narrative: UTI. Generalized weakness Lab Data Result diagrams: 01/06/22 20:06 01/06/22 20:06 Labs: Lab Results 01/06/22 01/06/22 01/06/22 Range/Units 20:06 20:06 20:06 WBC 5.2 (4.8-10.8) X10*3/uL RBC 4.61 (4.20-5.50) X10*6/uL Hgb 13.9 (12.0-16.0) g/dl Hct 42.6 (37.0-47.0) % MCV 92.4 (80.0-98.0) fL MCH 30.2 (27.0-33.0) pg MCHC 32.6 (31.0-35.0) g/dl RDW 14.8 (11.0-16.0) % Plt Count 317 (160-400) X10*3/uL MPV 9.2 L (9.4-12.3) fL Immature Gran % (Auto) 0.8 H (0.0-0.4) % Neut % (Auto) 77.1 H (45-73) % Lymph % (Auto) 12.2 L (20-40) % [place] % (Auto) 8.5 (2-11) % Eos % (Auto) 0.8 (0-4) % Baso % (Auto) 0.6 (0-2) % Lymph # (Auto) 0.6 L (1.2-4.9) X10*3/uL [place] # (Auto) 0.4 (0.1-1.2) X10*3/uL Eos # (Auto) 0.0 (0.0-0.4) X10*3/uL Baso # (Auto) 0.0 (0.0-0.2) X10*3/uL Abs Immat Gran (auto) 0.04 H (0.00-0.03) X10*3/uL Absolute Neuts (auto) 4.0 (2.0-8.3) x10*3/uL Absolute Nucleated RBC 0.000 (0.0-0.012) X10*3/uL Nucleated RBC % (auto) 0.0 (0.0-0.2) /100WBC PT 10.8 (10.0-13.1) SEC INR 0.9 (0.9-1.1) APTT 31.3 (26.0-36.4) SEC Sodium 141 (135-145) mmol/L Potassium 4.4 (3.3-5.1) mmol/L Chloride 101 (96-108) mmol/L Carbon Dioxide 29 (22-29) mmol/L Anion Gap 15 (12-20) BUN 10 (9-16) mg/dL Creatinine 0.72 (0.5-1.4) mg/dL Estim Creat Clear Calc 74.8 Estimated GFR > 60 Random Glucose 98 (60-115) mg/dL Lactic Acid (0.5-2.0) mmol/L Calcium 9.0 (8.4-10.2) mg/dL Magnesium 2.2 (1.6-2.6) mg/dL Total Bilirubin 0.2 (0.0-1.0) mg/dL AST 14 (5-31) U/L ALT 17 (0-31) U/L Alkaline Phosphatase 93 D (39-117) U/L Total Creatine Kinase 105 D (26-140) U/L Troponin I High Sens (<3.5-17.0) ng/L Total Protein 7.3 (6.5-8.0) g/dL Albumin 4.2 (3.5-5.0) g/dL Urine Color Urine Appearance Urine pH (5.0-8.0) Ur Specific [place] (1.005-1.025) Urine Protein (NEG-TRACE) MG/DL Urine Glucose (UA) (NEG) MG/DL Urine Ketones (NEG) MG/DL Urine Blood (NEG) Urine Nitrite (NEG) Ur Leukocyte Esterase (NEG) Urine RBC (0) /HPF Urine WBC (0-4) /HPF Ur Squamous Epith Cells /LPF Urine Bacteria /LPF Urine Yeast /HPF Salicylates < 5.0 L (15-30) mg/dL Urine Opiates Screen (Not Detect) Urine Fentanyl Screen (Not Detect) Acetaminophen < 1 (<30) mcg/mL Ur Barbiturates Screen (Not Detect) Ur Phencyclidine Scrn (Not Detect) Ur Amphetamines Screen (Not Detect) U Benzodiazepines Scrn (Not Detect) Urine Cocaine Screen (Not Detect) U Marijuana (THC) Screen (Not Detect) COVID-19 (ALESSANDRA) (Negative) COVID-19 Clin Com 01/06/22 01/06/22 01/06/22 Range/Units 20:06 20:17 20:17 WBC (4.8-10.8) X10*3/uL RBC (4.20-5.50) X10*6/uL Hgb (12.0-16.0) g/dl Hct (37.0-47.0) % MCV (80.0-98.0) fL MCH (27.0-33.0) pg MCHC (31.0-35.0) g/dl RDW (11.0-16.0) % Plt Count (160-400) X10*3/uL MPV (9.4-12.3) fL Immature Gran % (Auto) (0.0-0.4) % Neut % (Auto) (45-73) % Lymph % (Auto) (20-40) % [place] % (Auto) (2-11) % Eos % (Auto) (0-4) % Baso % (Auto) (0-2) % Lymph # (Auto) (1.2-4.9) X10*3/uL [place] # (Auto) (0.1-1.2) X10*3/uL Eos # (Auto) (0.0-0.4) X10*3/uL Baso # (Auto) (0.0-0.2) X10*3/uL Abs Immat Gran (auto) (0.00-0.03) X10*3/uL Absolute Neuts (auto) (2.0-8.3) x10*3/uL Absolute Nucleated RBC (0.0-0.012) X10*3/uL Nucleated RBC % (auto) (0.0-0.2) /100WBC PT (10.0-13.1) SEC INR (0.9-1.1) APTT (26.0-36.4) SEC Sodium (135-145) mmol/L Potassium (3.3-5.1) mmol/L Chloride (96-108) mmol/L Carbon Dioxide (22-29) mmol/L Anion Gap (12-20) BUN (9-16) mg/dL Creatinine (0.5-1.4) mg/dL Estim Creat Clear Calc Estimated GFR Random Glucose (60-115) mg/dL Lactic Acid (0.5-2.0) mmol/L Calcium (8.4-10.2) mg/dL Magnesium (1.6-2.6) mg/dL Total Bilirubin (0.0-1.0) mg/dL AST (5-31) U/L ALT (0-31) U/L Alkaline Phosphatase (39-117) U/L Total Creatine Kinase (26-140) U/L Troponin I High Sens < 3.5 (<3.5-17.0) ng/L Total Protein (6.5-8.0) g/dL Albumin (3.5-5.0) g/dL Urine Color YELLOW Urine Appearance HAZY Urine pH 5.5 (5.0-8.0) Ur Specific [place] 1.025 (1.005-1.025) Urine Protein NEG (NEG-TRACE) MG/DL Urine Glucose (UA) NEG (NEG) MG/DL Urine Ketones NEG (NEG) MG/DL Urine Blood 1+ H (NEG) Urine Nitrite POS H (NEG) Ur Leukocyte Esterase 2+ H (NEG) Urine RBC 1-4 (0) /HPF Urine WBC 15-29 H (0-4) /HPF Ur Squamous Epith Cells 1+ /LPF Urine Bacteria 1+ /LPF Urine Yeast 1+ /HPF Salicylates (15-30) mg/dL Urine Opiates Screen Not Detected (Not Detect) Urine Fentanyl Screen Not Detected (Not Detect) Acetaminophen (<30) mcg/mL Ur Barbiturates Screen Not Detected (Not Detect) Ur Phencyclidine Scrn Not Detected (Not Detect) Ur Amphetamines Screen Not Detected (Not Detect) U Benzodiazepines Scrn Not Detected (Not Detect) Urine Cocaine Screen Not Detected (Not Detect) U Marijuana (THC) Screen Not Detected (Not Detect) COVID-19 (ALESSANDRA) (Negative) COVID-19 Clin Com 01/06/22 01/06/22 Range/Units 20:53 22:34 WBC (4.8-10.8) X10*3/uL RBC (4.20-5.50) X10*6/uL Hgb (12.0-16.0) g/dl Hct (37.0-47.0) % MCV (80.0-98.0) fL MCH (27.0-33.0) pg MCHC (31.0-35.0) g/dl RDW (11.0-16.0) % Plt Count (160-400) X10*3/uL MPV (9.4-12.3) fL Immature Gran % (Auto) (0.0-0.4) % Neut % (Auto) (45-73) % Lymph % (Auto) (20-40) % [place] % (Auto) (2-11) % Eos % (Auto) (0-4) % Baso % (Auto) (0-2) % Lymph # (Auto) (1.2-4.9) X10*3/uL [place] # (Auto) (0.1-1.2) X10*3/uL Eos # (Auto) (0.0-0.4) X10*3/uL Baso # (Auto) (0.0-0.2) X10*3/uL Abs Immat Gran (auto) (0.00-0.03) X10*3/uL Absolute Neuts (auto) (2.0-8.3) x10*3/uL Absolute Nucleated RBC (0.0-0.012) X10*3/uL Nucleated RBC % (auto) (0.0-0.2) /100WBC PT (10.0-13.1) SEC INR (0.9-1.1) APTT (26.0-36.4) SEC Sodium (135-145) mmol/L Potassium (3.3-5.1) mmol/L Chloride (96-108) mmol/L Carbon Dioxide (22-29) mmol/L Anion Gap (12-20) BUN (9-16) mg/dL Creatinine (0.5-1.4) mg/dL Estim Creat Clear Calc Estimated GFR Random Glucose (60-115) mg/dL Lactic Acid 0.8 (0.5-2.0) mmol/L Calcium (8.4-10.2) mg/dL Magnesium (1.6-2.6) mg/dL Total Bilirubin (0.0-1.0) mg/dL AST (5-31) U/L ALT (0-31) U/L Alkaline Phosphatase (39-117) U/L Total Creatine Kinase (26-140) U/L Troponin I High Sens (<3.5-17.0) ng/L Total Protein (6.5-8.0) g/dL Albumin (3.5-5.0) g/dL Urine Color Urine Appearance Urine pH (5.0-8.0) Ur Specific [place] (1.005-1.025) Urine Protein (NEG-TRACE) MG/DL Urine Glucose (UA) (NEG) MG/DL Urine Ketones (NEG) MG/DL Urine Blood (NEG) Urine Nitrite (NEG) Ur Leukocyte Esterase (NEG) Urine RBC (0) /HPF Urine WBC (0-4) /HPF Ur Squamous Epith Cells /LPF Urine Bacteria /LPF Urine Yeast /HPF Salicylates (15-30) mg/dL Urine Opiates Screen (Not Detect) Urine Fentanyl Screen (Not Detect) Acetaminophen (<30) mcg/mL Ur Barbiturates Screen (Not Detect) Ur Phencyclidine Scrn (Not Detect) Ur Amphetamines Screen (Not Detect) U Benzodiazepines Scrn (Not Detect) Urine Cocaine Screen (Not Detect) U Marijuana (THC) Screen (Not Detect) COVID-19 (ALESSANDRA) Negative (Negative) COVID-19 Clin Com See Note ECG Data Interpretation: Normal Sinus thrythm. Vent rate 77. IA interval 142. QTC 445. negtive stemi Discharge Plan Discharge Clinical Impression: UTI (urinary tract infection) Patient Disposition: Admitted As Inpatient
[2022-01-06 20:15] LABS: MANUAL DIFF FLAG NO
[2022-01-06 20:17] LABS: Basophils Percent Auto 0.6 % (0-2); Eosinophils Percent Auto 0.8 % (0-4); Hematocrit 42.6 % (37.0-47.0); Hemoglobin 13.9 g/dl (12.0-16.0); Imm Gran Abs Auto 0.04 X10*3/uL (0.00-0.03); Imm Gran Pct Auto 0.8 % (0.0-0.4); Lymphocytes Absolute Auto 0.6 X10*3/uL (1.2-4.9); Lymphocytes Percent Auto 12.2 % (20-40); Mean Corpuscular HGB Conc 32.6 g/dl (31.0-35.0); Mean Corpuscular Hemoglobin 30.2 pg (27.0-33.0); Mean Corpuscular Volume 92.4 fL (80.0-98.0); Mean Platelet Volume 9.2 fL (9.4-12.3); Monocytes Absolute Auto 0.4 X10*3/uL (0.1-1.2); Monocytes Percent Auto 8.5 % (2-11); Neutrophils Percent Auto 77.1 % (45-73); Platelet Count 317 X10*3/uL (160-400); Red Blood Count 4.61 X10*6/uL (4.20-5.50); Red Cell Distribution Width 14.8 % (11.0-16.0); White Blood Count 5.2 X10*3/uL (4.8-10.8)
[2022-01-06 20:23] LABS: INTERNATIONAL NORM RATIO 0.9 (0.9-1.1); Prothrombin Time 10.8 SEC (10.0-13.1)
[2022-01-06 20:24] LABS: Appearance Urine HAZY; Color Urine YELLOW; Glucose Urine UA NEG (NEG); Leukocyte Esterase Urine 2+ (NEG); Nitrite Urine POS (NEG); PH 5.5 (5.0-8.0); Specific Gravity - Urine 1.025 (1.005-1.025); UACC Culture Trigger YES; Urine Blood 1+ (NEG); Urine Ketones NEG (NEG); Urine Protein NEG (NEG-TRACE)
[2022-01-06 20:26] LABS: Partial Thromboplastin Time 31.3 SEC (26.0-36.4)
[2022-01-06 20:35] LABS: Alanine Aminotransferase 17 U/L (0-31); Albumin Level 4.2 g/dL (3.5-5.0); Alkaline Phosphatase 93 U/L (39-117); Anion Gap 15 (12-20); Aspartate Amino Transferase 14 U/L (5-31); Bilirubin Total 0.2 mg/dL (0.0-1.0); Blood Urea Nitrogen 10 mg/dL (9-16); Carbon Dioxide 29 mmol/L (22-29); Chloride 101 mmol/L (96-108); Creatinine Clr Calc Pharmacy 74.8; Estimated Glomerular Filt Rate > 60; Glucose Random 98 mg/dL (60-115); Magnesium 2.2 mg/dL (1.6-2.6); Potassium 4.4 mmol/L (3.3-5.1); Sodium 141 mmol/L (135-145); Total Protein 7.3 g/dL (6.5-8.0)
[2022-01-06 20:36] LABS: Bacteria Urine 1+ /LPF; Squamous Epithelial Cell Urine 1+ /LPF
[2022-01-06 20:41] LABS: Troponin-I High Sensitivity < 3.5 ng/L (<3.5-17.0)
[2022-01-06 21:03] LABS: Acetaminophen LAB < 1 mcg/mL (<30); Salicylate < 5.0 mg/dL (15-30)
[2022-01-06 21:09] LABS: Amphetamine Screen Urine Not Detected (Not Detect); Barbiturates, Urine Not Detected (Not Detect); Benzodiazepines Screen Urine Not Detected (Not Detect); Cannabinoid Screen Urine Not Detected (Not Detect); Cocaine Screen Urine Not Detected (Not Detect); Fentanyl, urine Not Detected (Not Detect); Opiate Screen Urine Not Detected (Not Detect); Phencyclidine Screen Urine Not Detected (Not Detect)
[2022-01-06 21:13] LABS: COVID-19 Test Negative (Negative)
[2022-01-06 22:52] LABS: Lactic Acid 0.8 mmol/L (0.5-2.0)
[2022-01-06] MEDS: cefTRIAXone sodium 1 GM in 0.9 % Sodium Chloride 50 ML IV (22:55)
--- NOTE | 2022-01-06 23:39 | ECG_ITS ---
Test Reason : cp Blood Pressure : / mmHG Vent. Rate : 077 BPM Atrial Rate : 077 BPM P-R Int : 142 ms QRS Dur : 074 ms QT Int : 394 ms P-R-T Axes : 064 056 070 degrees QTc Int : 445 ms Normal sinus rhythm Normal ECG When compared with ECG of 11-DEC-2021 11:24, No significant change was found Referred By: Blair North Electronically Signed By:SUBHASH DENNIS MD
--- NOTE | 2022-01-06 23:39 | PM.IMHP ---
History of Present Illness Date of Service: 01/06/22 Chief Complaint: fall 61-year-old female with past medical history multiple CVA with residual left-sided weakness, history of NSTEMI, chronic indwelling Marshall, recurrent UTI, COPD; presented to the hospital today with a chief complaint of generalized weakness. patient is a poor historian. Most of the history obtained from the records and ER staff. Tried to reach the patient spent -artery to below the fall. Reportedly patient has been feeling generally weak over the past 7 days; for the past couple days she had at least 4 episodes of falls. Reportedly mechanical in nature. No mention syncope. No mention of seizure-like activity. Patient denies any abdominal pain, chest pain. Review of all other systems is limited. ER course: Per ER team patient exam is benign, unchanged from prior, has residual left-sided weakness, has chronic indwelling Marshall. Urinalysis was abnormal consistent with UTI. EKG was nonischemic. Troponin negative. Given ceftriaxone. Admitted to the hospital for further management. [facility] Medical History Bacteriuria COPD (chronic obstructive pulmonary disease) Diabetes Femoral distal fracture Fracture of left tibial plateau Frequent falls Gram-positive cocci bacteremia Hemiparesis of left nondominant side Hyperlipidemia Hypertension Left hemiparesis Left humeral fracture Multiple sclerosis Multiple sclerosis NSTEMI (non-ST elevated myocardial infarction) Physical deconditioning Polysubstance abuse Pyuria Seizure disorder UTI (urinary tract infection) Weakness Family History Other Adopted Surgical History No pertinent past surgical history Social History Household Members: Unknown / Unable to assess Housing: Unknown / Unable to assess Alcohol intake: never Patient Tobacco Use Status: Never used Tobacco Tobacco use type: Cigarette Cigarette Packs Per Day: 0.5 Cigarettes Per Day: 10.0 Substance Use Type: Opiates Advance Directives: Yes Advance Directives on File: Yes Advance Directives Date on File: 04/10/20 service: No Current occupational status: retired Meds Allergies Allergy/AdvReac Type Severity Reaction Status Date / Time No Known Allergies Allergy Verified 04/18/20 09:07 Active Medications: Current Medications Acetaminophen (Acetaminophen 325 Mg Tablet) 650 mg PO Q6H PRN PRN Reason: Pain, Mild (Pain Scale 1-3) Heparin Sodium (Porcine) (Heparin Sodium,Porcine 5,000 Unit/Ml Vial) 5,000 unit SUBCUT Q8H ANN Ceftriaxone Sodium 1 gm/ (Sodium Chloride) 50 mls @ 100 mls/hr IV Q24H ANN Melatonin (Melatonin 3 Mg Tablet) 6 mg PO BEDTIME PRN PRN Reason: Insomnia Senna (Sennosides 8.6 Mg Tablet) 17.2 mg PO BEDTIME PRN PRN Reason: Constipation Sodium Chloride (0.9 % Sodium Chloride Flush 3 Ml Syringe) 3 ml IVFLUSH QSHIFT [facility] Home Medications Medication Instructions Recorded Confirmed Last Taken Type Unobtainable 01/07/22 01/07/22 Unknown History Physical Exam Vital Signs and Narrative: Vital Signs: Last Vital Signs Temp 98.9 F 01/06/22 19:32 Pulse 88 01/06/22 19:32 Resp 16 01/06/22 19:32 BP 135/70 01/06/22 19:32 Pulse Ox 97 01/06/22 19:32 O2 Del Method 01/06/22 19:32 BMI result Body Mass Index 24.4 Gen: Appears be in no acute distress HEENT: NCAT, Moist mucosa. Pulmonary: Vesicular breath sounds, fair air entry CVS: Normal S1-S2 Abdomen: BS+, Soft, Nontender Extremities: Warm well perfused Neuro: Alert and awake. Results Labs CBC and Chem 7: 01/06/22 20:06 01/06/22 20:06 Labs: Laboratory Results - last 24 hr 01/06/22 01/06/22 01/06/22 20:06 20:06 20:06 MCV 92.4 MCH 30.2 MCHC 32.6 RDW 14.8 Plt Count 317 MPV 9.2 L Immature Gran % (Auto) 0.8 H Neut % (Auto) 77.1 H Lymph % (Auto) 12.2 L [place] % (Auto) 8.5 Eos % (Auto) 0.8 Baso % (Auto) 0.6 Lymph # (Auto) 0.6 L [place] # (Auto) 0.4 Eos # (Auto) 0.0 Baso # (Auto) 0.0 Abs Immat Gran (auto) 0.04 H Absolute Neuts (auto) 4.0 Absolute Nucleated RBC 0.000 Nucleated RBC % (auto) 0.0 PT 10.8 INR 0.9 APTT 31.3 Anion Gap 15 Estim Creat Clear Calc 74.8 Estimated GFR > 60 Random Glucose 98 Lactic Acid Calcium 9.0 Magnesium 2.2 Total Bilirubin 0.2 AST 14 ALT 17 Alkaline Phosphatase 93 D Total Creatine Kinase 105 D Total Protein 7.3 Albumin 4.2 Urine Color Urine Appearance Urine pH Ur Specific [place] Urine Protein Urine Glucose (UA) Urine Ketones Urine Blood Urine Nitrite Ur Leukocyte Esterase Urine RBC Urine WBC Ur Squamous Epith Cells Urine Bacteria Urine Yeast Salicylates < 5.0 L Urine Opiates Screen Urine Fentanyl Screen Acetaminophen < 1 Ur Barbiturates Screen Ur Phencyclidine Scrn Ur Amphetamines Screen U Benzodiazepines Scrn Urine Cocaine Screen U Marijuana (THC) Screen COVID-19 (ALESSANDRA) COVID-19 [employer] Com 01/06/22 01/06/22 01/06/22 20:17 20:17 20:53 MCV MCH MCHC RDW Plt Count MPV Immature Gran % (Auto) Neut % (Auto) Lymph % (Auto) [place] % (Auto) Eos % (Auto) Baso % (Auto) Lymph # (Auto) [place] # (Auto) Eos # (Auto) Baso # (Auto) Abs Immat Gran (auto) Absolute Neuts (auto) Absolute Nucleated RBC Nucleated RBC % (auto) PT INR APTT Anion Gap Estim Creat Clear Calc Estimated GFR Random Glucose Lactic Acid Calcium Magnesium Total Bilirubin AST ALT Alkaline Phosphatase Total Creatine Kinase Total Protein Albumin Urine Color YELLOW Urine Appearance HAZY Urine pH 5.5 Ur Specific [place] 1.025 Urine Protein NEG Urine Glucose (UA) NEG Urine Ketones NEG Urine Blood 1+ H Urine Nitrite POS H Ur Leukocyte Esterase 2+ H Urine RBC 1-4 Urine WBC 15-29 H Ur Squamous Epith Cells 1+ Urine Bacteria 1+ Urine Yeast 1+ Salicylates Urine Opiates Screen Not Detected Urine Fentanyl Screen Not Detected Acetaminophen Ur Barbiturates Screen Not Detected Ur Phencyclidine Scrn Not Detected Ur Amphetamines Screen Not Detected U Benzodiazepines Scrn Not Detected Urine Cocaine Screen Not Detected U Marijuana (THC) Screen Not Detected COVID-19 (ALESSANDRA) Negative COVID-19 Clin Com See Note 01/06/22 22:34 MCV MCH MCHC RDW Plt Count MPV Immature Gran % (Auto) Neut % (Auto) Lymph % (Auto) [place] % (Auto) Eos % (Auto) Baso % (Auto) Lymph # (Auto) [place] # (Auto) Eos # (Auto) Baso # (Auto) Abs Immat Gran (auto) Absolute Neuts (auto) Absolute Nucleated RBC Nucleated RBC % (auto) PT INR APTT Anion Gap Estim Creat Clear Calc Estimated GFR Random Glucose Lactic Acid 0.8 Calcium Magnesium Total Bilirubin AST ALT Alkaline Phosphatase Total Creatine Kinase Total Protein Albumin Urine Color Urine Appearance Urine pH Ur Specific [place] Urine Protein Urine Glucose (UA) Urine Ketones Urine Blood Urine Nitrite Ur Leukocyte Esterase Urine RBC Urine WBC Ur Squamous Epith Cells Urine Bacteria Urine Yeast Salicylates Urine Opiates Screen Urine Fentanyl Screen Acetaminophen Ur Barbiturates Screen Ur Phencyclidine Scrn Ur Amphetamines Screen U Benzodiazepines Scrn Urine Cocaine Screen U Marijuana (THC) Screen COVID-19 (ALESSANDRA) COVID-19 Clin Com Imaging Radiologist's Impressions: Impressions Abdomen/Pelvis CT 01/06/22 20:55 IMPRESSION: No acute findings. Fleischner guidelines were followed. Cervical Spine CT 01/06/22 20:55 IMPRESSION: 1. No acute intracranial pathology. Chronic multifocal white matter hypoattenuation consistent with known history of multiple sclerosis. 2. No acute fracture or acute malalignment in the cervical spine. Multilevel degenerative spondylosis. Chest CT 01/06/22 20:55 IMPRESSION: No acute findings. Fleischner guidelines were followed. Head CT 01/06/22 20:55 IMPRESSION: 1. No acute intracranial pathology. Chronic multifocal white matter hypoattenuation consistent with known history of multiple sclerosis. 2. No acute fracture or acute malalignment in the cervical spine. Multilevel degenerative spondylosis. Assessment and Plan (1) UTI (urinary tract infection): Status: Acute (2) Fall: Status: Acute Plan 61-year-old female with past medical history multiple CVA with residual left-sided weakness, history of NSTEMI, chronic indwelling Marshall, recurrent UTI, COPD; presented to the hospital today with a chief complaint of generalized weakness/ Falls. Falls: Mechanical in nature reportedly. EKG nonischemic Imaging negative for any acute fracture. CT head and CT C-spine showed no acute findings Fall precautions PT/ OT eventually UTI: Patient has chronic indwelling Marshall. During recent admission in December 2021-patient grew ESBL E coli. Will keep the patient on ertapenem. ID consult History of MS/ CVA with left hemiparesis: Continue home meds For all other chronic conditions, home medications will be continued pending med rec. DVT prophylaxis: Subcu heparin Code status: Full code Quality Stroke Does the patient have a stroke diagnosis?: No VTE Prior VTE?: No VTE Risk Level:: Medical - moderate - high VTE Device Contraindication: N/A - Device Ordered VTE Drug Contraindication: Treatment Not Indicated
[2022-01-07 00:26] VITALS: BP 140/85; PULSE 78; RESP 16; O2SAT 96
[2022-01-07] MEDS: Ertapenem Sodium 1 GM in 0.9 % Sodium Chloride 50 ML IV (00:32)
[2022-01-07] MEDS: Heparin Sodium,Porcine 5,000 UNIT/ML VIAL 5000 UNIT SUBCUT (00:33)
[2022-01-07 06:28] LABS: MANUAL DIFF FLAG NO
[2022-01-07 06:33] LABS: Basophils Absolute Auto 0.1 X10*3/uL (0.0-0.2); Basophils Percent Auto 0.7 % (0-2); Eosinophils Absolute Auto 0.1 X10*3/uL (0.0-0.4); Eosinophils Percent Auto 1.6 % (0-4); Hematocrit 40.2 % (37.0-47.0); Hemoglobin 13.1 g/dl (12.0-16.0); Imm Gran Abs Auto 0.04 X10*3/uL (0.00-0.03); Imm Gran Pct Auto 0.6 % (0.0-0.4); Lymphocytes Absolute Auto 0.6 X10*3/uL (1.2-4.9); Lymphocytes Percent Auto 8.5 % (20-40); Mean Corpuscular HGB Conc 32.6 g/dl (31.0-35.0); Mean Corpuscular Hemoglobin 30.4 pg (27.0-33.0); Mean Corpuscular Volume 93.3 fL (80.0-98.0); Mean Platelet Volume 9.4 fL (9.4-12.3); Monocytes Absolute Auto 0.6 X10*3/uL (0.1-1.2); Monocytes Percent Auto 8.8 % (2-11); Neutrophils Absolute Auto 5.4 x10*3/uL (2.0-8.3); Neutrophils Percent Auto 79.8 % (45-73); Platelet Count 307 X10*3/uL (160-400); Red Blood Count 4.31 X10*6/uL (4.20-5.50); White Blood Count 6.7 X10*3/uL (4.8-10.8)
[2022-01-07 06:50] LABS: Magnesium 2.3 mg/dL (1.6-2.6)
[2022-01-07 06:54] LABS: Anion Gap 17 (12-20); Blood Urea Nitrogen 11 mg/dL (9-16); Calcium 8.4 mg/dL (8.4-10.2); Carbon Dioxide 23 mmol/L (22-29); Chloride 107 mmol/L (96-108); Creatinine Clr Calc Pharmacy 92.9; Estimated Glomerular Filt Rate > 60; Glucose Random 84 mg/dL (60-115); Potassium 4.5 mmol/L (3.3-5.1); Sodium 142 mmol/L (135-145)
[2022-01-07 06:56] VITALS: BP 140/77; PULSE 93; RESP 20; TEMP 36.8; O2SAT 93
--- NOTE | 2022-01-07 08:35 | PM.DS ---
DS: Providers Provider Date of Service: 01/07/22 Date of admission: 01/06/22 23:36 Primary care physician: Unknown Physician DS: Diagnosis Discharge Diagnosis (1) UTI (urinary tract infection): Status: Acute (2) Fall: Status: Acute DS: Summary Hospital Course Hospital Course: hpi: 61F with PMH of MS with chronic dumas and left hemiparesis, non ambulatory, pivots only, was sent in by EMS as was concerned for frequent falls during transfers. patient herself denies any LOC, increased weakness, fevers, chills. hospital course: Patient was admitted for falls and concern for chronic indwelling Dumas associated urinary tract infection. Patient's falls are clearly mechanical nature, due to chronic left-sided hemiparesis from a multiple sclerosis, patient's strength appears to be at baseline, even better than when seen on previous hospitalization about 1 month prior to presentation. Her positive urinalysis is likely colonization and chronic Dumas, she has no evidence of active urinary tract infection. Will hold off on antibiotics at this time. Patient appears at baseline and and has continued unmodifiable fall risk due to chronic left hemiparesis. She should continue to be cautious while transferring. Time Spent with Patient Time attestation: Total time spent providing and/or coordinating discharge services: Discharge coordination time: Greater than 30 minutes Quality: Safe Use of Opioids Does Pt have an Active Cancer Diagnosis on the Problem List?: No Quality: Stroke Does the patient have a stroke diagnosis?: No Physical Exam Vital Signs: Vital Signs: Last Vital Signs Temp 98.9 F 01/06/22 19:32 Pulse 93 01/07/22 06:56 Resp 20 01/07/22 06:56 BP 140/77 H 01/07/22 06:56 Pulse Ox 93 01/07/22 06:56 O2 Del Method 01/07/22 06:56 BMI result Body Mass Index 24.4 General: AO X 3, no acute distress Resp: CTA bilateral, no accessory muscles used CVS: S1,S2,RRR GI: soft, non tender, non distended Neuro: left hemiparesis, alert Psych: appropriate affect, appropriate insight DS: Data Data Completed and Pending Completed studies during hospitalization [Text1]: Procedures Insertion of Infusion Device into Right Cephalic Vein, Percutaneous Approach (07/13/21) Labs on day of discharge: Laboratory Results - last 24 hr 01/06/22 01/06/22 01/06/22 20:06 20:06 20:06 WBC 5.2 RBC 4.61 Hgb 13.9 Hct 42.6 MCV 92.4 MCH 30.2 MCHC 32.6 RDW 14.8 Plt Count 317 MPV 9.2 L Immature Gran % (Auto) 0.8 H Neut % (Auto) 77.1 H Lymph % (Auto) 12.2 L [place] % (Auto) 8.5 Eos % (Auto) 0.8 Baso % (Auto) 0.6 Lymph # (Auto) 0.6 L [place] # (Auto) 0.4 Eos # (Auto) 0.0 Baso # (Auto) 0.0 Abs Immat Gran (auto) 0.04 H Absolute Neuts (auto) 4.0 Absolute Nucleated RBC 0.000 Nucleated RBC % (auto) 0.0 PT 10.8 INR 0.9 APTT 31.3 Sodium 141 Potassium 4.4 Chloride 101 Carbon Dioxide 29 Anion Gap 15 BUN 10 Creatinine 0.72 Estim Creat Clear Calc 74.8 Estimated GFR > 60 Random Glucose 98 Lactic Acid Calcium 9.0 Magnesium 2.2 Total Bilirubin 0.2 AST 14 ALT 17 Alkaline Phosphatase 93 D Total Creatine Kinase 105 D Troponin I High Sens Total Protein 7.3 Albumin 4.2 Urine Color Urine Appearance Urine pH Ur Specific [place] Urine Protein Urine Glucose (UA) Urine Ketones Urine Blood Urine Nitrite Ur Leukocyte Esterase Urine RBC Urine WBC Ur Squamous Epith Cells Urine Bacteria Urine Yeast Salicylates < 5.0 L Urine Opiates Screen Urine Fentanyl Screen Acetaminophen < 1 Ur Barbiturates Screen Ur Phencyclidine Scrn Ur Amphetamines Screen U Benzodiazepines Scrn Urine Cocaine Screen U Marijuana (THC) Screen COVID-19 (ALESSANDRA) COVID-19 Clin Com 01/06/22 01/06/22 01/06/22 20:06 20:17 20:17 WBC RBC Hgb Hct MCV MCH MCHC RDW Plt Count MPV Immature Gran % (Auto) Neut % (Auto) Lymph % (Auto) [place] % (Auto) Eos % (Auto) Baso % (Auto) Lymph # (Auto) [place] # (Auto) Eos # (Auto) Baso # (Auto) Abs Immat Gran (auto) Absolute Neuts (auto) Absolute Nucleated RBC Nucleated RBC % (auto) PT INR APTT Sodium Potassium Chloride Carbon Dioxide Anion Gap BUN Creatinine Estim Creat Clear Calc Estimated GFR Random Glucose Lactic Acid Calcium Magnesium Total Bilirubin AST ALT Alkaline Phosphatase Total Creatine Kinase Troponin I High Sens < 3.5 Total Protein Albumin Urine Color YELLOW Urine Appearance HAZY Urine pH 5.5 Ur Specific [place] 1.025 Urine Protein NEG Urine Glucose (UA) NEG Urine Ketones NEG Urine Blood 1+ H Urine Nitrite POS H Ur Leukocyte Esterase 2+ H Urine RBC 1-4 Urine WBC 15-29 H Ur Squamous Epith Cells 1+ Urine Bacteria 1+ Urine Yeast 1+ Salicylates Urine Opiates Screen Not Detected Urine Fentanyl Screen Not Detected Acetaminophen Ur Barbiturates Screen Not Detected Ur Phencyclidine Scrn Not Detected Ur Amphetamines Screen Not Detected U Benzodiazepines Scrn Not Detected Urine Cocaine Screen Not Detected U Marijuana (THC) Screen Not Detected COVID-19 (ALESSANDRA) COVID-19 [employer] Com 01/06/22 01/06/22 01/07/22 20:53 22:34 05:59 WBC 6.7 RBC 4.31 Hgb 13.1 Hct 40.2 MCV 93.3 MCH 30.4 MCHC 32.6 RDW 15.0 Plt Count 307 MPV 9.4 Immature Gran % (Auto) 0.6 H Neut % (Auto) 79.8 H Lymph % (Auto) 8.5 L [place] % (Auto) 8.8 Eos % (Auto) 1.6 Baso % (Auto) 0.7 Lymph # (Auto) 0.6 L [place] # (Auto) 0.6 Eos # (Auto) 0.1 Baso # (Auto) 0.1 Abs Immat Gran (auto) 0.04 H Absolute Neuts (auto) 5.4 Absolute Nucleated RBC 0.000 Nucleated RBC % (auto) 0.0 PT INR APTT Sodium Potassium Chloride Carbon Dioxide Anion Gap BUN Creatinine Estim Creat Clear Calc Estimated GFR Random Glucose Lactic Acid 0.8 Calcium Magnesium Total Bilirubin AST ALT Alkaline Phosphatase Total Creatine Kinase Troponin I High Sens Total Protein Albumin Urine Color Urine Appearance Urine pH Ur Specific [place] Urine Protein Urine Glucose (UA) Urine Ketones Urine Blood Urine Nitrite Ur Leukocyte Esterase Urine RBC Urine WBC Ur Squamous Epith Cells Urine Bacteria Urine Yeast Salicylates Urine Opiates Screen Urine Fentanyl Screen Acetaminophen Ur Barbiturates Screen Ur Phencyclidine Scrn Ur Amphetamines Screen U Benzodiazepines Scrn Urine Cocaine Screen U Marijuana (THC) Screen COVID-19 (ALESSANDRA) Negative COVID-19 Clin Com See Note 01/07/22 01/07/22 05:59 05:59 WBC RBC Hgb Hct MCV MCH MCHC RDW Plt Count MPV Immature Gran % (Auto) Neut % (Auto) Lymph % (Auto) [place] % (Auto) Eos % (Auto) Baso % (Auto) Lymph # (Auto) [place] # (Auto) Eos # (Auto) Baso # (Auto) Abs Immat Gran (auto) Absolute Neuts (auto) Absolute Nucleated RBC Nucleated RBC % (auto) PT INR APTT Sodium 142 Potassium 4.5 Chloride 107 Carbon Dioxide 23 Anion Gap 17 BUN 11 Creatinine 0.58 Estim Creat Clear Calc 92.9 Estimated GFR > 60 Random Glucose 84 Lactic Acid Calcium 8.4 D Magnesium 2.3 Total Bilirubin AST ALT Alkaline Phosphatase Total Creatine Kinase Troponin I High Sens Total Protein Albumin Urine Color Urine Appearance Urine pH Ur Specific [place] Urine Protein Urine Glucose (UA) Urine Ketones Urine Blood Urine Nitrite Ur Leukocyte Esterase Urine RBC Urine WBC Ur Squamous Epith Cells Urine Bacteria Urine Yeast Salicylates Urine Opiates Screen Urine Fentanyl Screen Acetaminophen Ur Barbiturates Screen Ur Phencyclidine Scrn Ur Amphetamines Screen U Benzodiazepines Scrn Urine Cocaine Screen U Marijuana (THC) Screen COVID-19 (ALESSANDRA) COVID-19 Clin Com Discharge Plan Discharge Patient Disposition: Home, Self-Care Discharge Diagnosis: fall while transferring due to chronic left hemiparesis from MS Referrals: Physician,Unknown J [Primary Care Provider] - 1 Week Discharge Medications: No Action Unobtainable Discharge Orders: Discharge Order (Routine); Ordered 01/07/22 Ordered By: Jason Snyder Diet: Advance to usual diet Activity on Discharge: As tolerated Stand Alone Forms: Patient Portal Discharge page Care Plan Goals: avoid falls Health Concerns: falls Plan of Treatment: careful transfers Assessment: see above
--- NOTE | 2022-01-07 08:55 | PC.NURSE ---
pt resting in [facility], Dr. Snyder, hospitalist in to see pt, pt is now being discharged home, this rn spoke with pt she agrees with discharge, f/c draining dark yellow urine and emptied by ertLashawn of 250 mls, fire extinguisher charger becky notified and mmd unit teacher, Samina aware to book transport home
--- NOTE | 2022-01-07 09:43 | MHC.CM.PN ---
Met with patient in regards to discharge planning. Patient is well known to case management. Patient lives with her , has a wheelchair d/t MS, [facility] and [facility] No additional services anticipated to be needed. PCP is Pranav Su. Patient received 2 Moderna vaccines. Copy of HCP verified to be on file. IMM explained and signed. Patient will be discharged home today with resumption of services via BLS. Continue to monitor for d/c needs.
== END 2022-01-07 09:42 | disposition home or self-care (01) | DRG 690 ==
LOC: HO.ED 19:39 → HO.EDOVER 01-07 00:16
PROVIDERS: Physician Assistant; Admitting Provider Hospitalist; Emergency Provider Internal Medicine; PCP Internal Medicine; Visit Provider Internal Medicine
DX: N39.0 Urinary tract infection, site not specified (principal); I69.954 Hemiplegia and hemiparesis following unspecified cerebrovascular disease affecting left non-dominant side; G35 Multiple sclerosis; R29.6 Repeated falls; Z96.0 Presence of urogenital implants; I25.2 Old myocardial infarction; Z91.81 History of falling; Z20.822 Contact with and (suspected) exposure to COVID-19
CPT/HCPCS: 36415; 70450; 71250; 72125; 74176; 80048; 80053; 80143; 80179; 80307; 81001; 82550; 83605; 83735; 84484; 85025; 85610; 85730; 87040; 87086; 87088; 87186; 87635; 93005; 96361; 96365; 99285; J0696; J1335

== ENCOUNTER 2022-02-10 20:28 | Inpatient (IN) | payer MEDICARE, OTHER, SELFPAY ==
--- NOTE | ~2022-02-10 | CT_ITS ---
EXAMINATION: CT HEAD WITHOUT CONTRAST CLINICAL INFORMATION: Pain COMPARISON: 01/06/2022 TECHNIQUE: Contiguous axial imaging was performed from the skull base to vertex without intravenous administration of contrast. This CT examination was performed using dose optimization techniques as appropriate, variously including the following: *Automated exposure control *Adjustment of mA and/or kV according to patient size (this includes techniques or standardized protocols for targeted exams where dose is matched to indication/reason for exam; i.e. extremities or head) *Use of iterative reconstruction technique DLP: 646 mGy-cm FINDINGS: There is no evidence of acute intracranial hemorrhage or territorial infarction. No abnormal mass-effect or midline shift is seen. Verdugo to white matter differentiation is well preserved. No extra-axial fluid collections are identified. The ventricles are normal in size. Redemonstrated chronic hypoattenuating focus in the right basal ganglia, suggesting a chronic lacunar infarct. Mild periventricular white matter hypoattenuation, similar to prior and in keeping with history of demyelinating disease The osseous structures and soft tissues are normal. The mastoid air cells and visualized portions of the paranasal sinuses are well-aerated. CT/CT head/brain wo IV con IMPRESSION: No acute findings identified. Chronic changes as noted above.
[2022-02-10 20:40] VITALS: BP 131/66; PULSE 97; RESP 16; TEMP 36.8; O2SAT 95; BMI 24.7
--- NOTE | 2022-02-10 21:00 | PC.NURSE ---
Patient washed up with max assist 2RN's. Incontinent stool. 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 She is treating with nystatin power and cream at home. Barrier cream applied to buttock and labial folds. Nystatin not available at this time. Patient c/o vaginal pain upon turning and sitting.....Patient's dumas catheter clip (to secure to leg) was found inside vagina and was removed.
--- NOTE | 2022-02-10 21:18 | ED.WEAKNESS ---
HPI - Weakness General Chief complaint: Weakness <DONTA Rainey Last Filed: 02/11/22 02:50> Stated complaint: LEFT SIDED WEAKNESS. FALL <DONTA Rainey Last Filed: 02/11/22 02:50> Time Seen by Provider: 02/10/22 20:36 <DONTA Rainey Last Filed: 02/11/22 02:50> Source: patient and EMS <DONTA Rainey Last Filed: 02/11/22 02:50> Mode of arrival: wheelchair <DONTA Rainey Last Filed: 02/11/22 02:50> Limitations: no limitations <DONTA Rainey Last Filed: 02/11/22 02:50> History of Present Illness HPI Narrative: This is a 61-year-old female past medical history significant for multiple sclerosis, wheelchair-bound, adult failure to thrive, hypotonic neurogenic bladder, chronic left-sided weakness secondary to CVA, hypertension, hyperlipidemia, left humeral fracture, ACS, seizure disorder, recurrent UTIs, diabetes, COPD. Patient reports that she was attempting to use the commode tonight but could not get there in time and was incontinent of stool, reports increasing weakness. She then called EMS because she needed assistance getting to the commode and getting cleaned up. She is paralyzed on the left side due to a history of MS. She also reports that for the past few days she has been having discomfort in her vaginal area and that she believes her dumas catheter is out of place. She tell me she has a chronic deformity of her left arm due to past humeral fracture. She also has diffuse psoriasis on her abdomen and lower extremities and has been applying nystatin to a fungal infection under her right breast. She has been using OTC ointment to treat her psoriasis. She denies any chest pain, shortness of breath, abdominal pain, nausea, vomiting, dizziness, changes in vision, or any additional complaints at this time. <DONTA Rainey Last Filed: 02/11/22 02:50> MD Complaint: generalized weakness and difficulty walking (left-sided paralysis due to MS) <DONTA Rainey Last Filed: 02/11/22 02:50> Onset (ago): year(s) (chronic due to multiple sclerosis. wheel chair bound) <DONTA Rainey Last Filed: 02/11/22 02:50> Duration: constant <DONTA Rainey Last Filed: 02/11/22 02:50> Location: generalized <DONTA Rainey Last Filed: 02/11/22 02:50> Migration: none <DONTA Rainey Last Filed: 02/11/22 02:50> Severity: moderate <DONTA Rainey Last Filed: 02/11/22 02:50> Relieving factors: none <DONTA Rainey Last Filed: 02/11/22 02:50> Exacerbating factors: none <DONTA Rainey Last Filed: 02/11/22 02:50> Associated symptoms: denies other symptoms <DONTA Rainey - Last Filed: 02/11/22 02:50> Related Data Home medications: Home Medications Medication Instructions Recorded Confirmed No Known Home Meds 02/11/22 02/11/22 <DONTA Rainey - Last Filed: 02/11/22 02:50> Allergies/Adverse reactions: Allergies Allergy/AdvReac Type Severity Reaction Status Date / Time No Known Allergies Allergy Verified 04/18/20 09:07 <DONTA Rainey Last Filed: 02/11/22 02:50> Review of Systems Review of Systems: Constitutional : No Weight loss, No Fever, No Chills, No Fatigue, No Malaise +generalized weakness, left sided paralysis due to MS ENT/Mouth : No sore throat, No Rhinorrhea Eyes: No Eye Pain, No Swelling, No Redness Cardiovascular : No Chest Pain, No SOB, No Dyspnea on Exertion, No Orthopnea, No Edema, No Palpitations Respiratory : No Cough, No Sputum, No Wheezing Gastrointestinal : No Nausea, No Vomiting, No Diarrhea, No Constipation, No abdominal Pain, No Hematochezia, No Melena Genitourinary : No Dysuria, No Urinary Frequency, No Hematuria, Musculoskeletal : No joint pain, No Myalgias, No Joint Swelling Skin : No Skin Lesions, No rash Neuro : + Weakness, No Numbness, No Dizziness, No Headache Psych : No Anxiety/Panic, No Depression All other systems reviewed and are negative <DONTA Rainey - Last Filed: 02/11/22 02:50> Yes all other systems are reviewed and are negative <DONTA Rainey - Last Filed: 02/11/22 02:50> [facility] Past Medical History Medical History: Medical History Bacteriuria COPD (chronic obstructive pulmonary disease) Diabetes Femoral distal fracture Fracture of left tibial plateau Frequent falls Gram-positive cocci bacteremia Hemiparesis of left nondominant side Hyperlipidemia Hypertension Left hemiparesis Left humeral fracture Multiple sclerosis Multiple sclerosis NSTEMI (non-ST elevated myocardial infarction) Physical deconditioning Polysubstance abuse Pyuria Seizure disorder UTI (urinary tract infection) Weakness <DONTA Rainey - Last Filed: 02/11/22 02:50> Surgical History: Surgical History No pertinent past surgical history <DONTA Rainey - Last Filed: 02/11/22 02:50> Family History Family History: Family History Other Adopted <DONTA Rainey - Last Filed: 02/11/22 02:50> Social History Social History: Social History Household Members: Unknown / Unable to assess Housing: Unknown / Unable to assess Alcohol intake: never Patient Tobacco Use Status: Never used Tobacco Tobacco use type: Cigarette Cigarette Packs Per Day: 0.5 Cigarettes Per Day: 10.0 Use of substances other than those prescribed or required for medical reasons: No Substance Use Type: Opiates Advance Directives: Yes Advance Directives on File: Yes Advance Directives Date on File: 04/10/20 service: No Current occupational status: retired <DONTA Rainey - Last Filed: 02/11/22 02:50> Physical Exam Vital Signs: Vital Signs: Last Vital Signs Temp 97.9 F 02/11/22 07:46 Pulse 82 02/11/22 07:46 Resp 20 02/11/22 07:46 BP 112/62 02/11/22 07:46 Pulse Ox 98 02/11/22 07:46 O2 Del Method 02/11/22 07:46 O2 Flow Rate 3 02/11/22 07:46 BMI result Body Mass Index 24.7 vss <DONTA Rainey - Last Filed: 02/11/22 02:50> Vital Signs: Last Vital Signs Temp 97.9 F 02/11/22 07:46 Pulse 82 02/11/22 07:46 Resp 20 02/11/22 07:46 BP 112/62 02/11/22 07:46 Pulse Ox 98 02/11/22 07:46 O2 Del Method 02/11/22 07:46 O2 Flow Rate 3 02/11/22 07:46 BMI result Body Mass Index 24.7 <Augusto Law MD - Last Filed: 02/11/22 04:37> Vital Signs: Last Vital Signs Temp 97.9 F 02/11/22 07:46 Pulse 82 02/11/22 07:46 Resp 20 02/11/22 07:46 BP 112/62 02/11/22 07:46 Pulse Ox 98 02/11/22 07:46 O2 Del Method 02/11/22 07:46 O2 Flow Rate 3 02/11/22 07:46 BMI result Body Mass Index 24.7 <Tim Perla MD - Last Filed: 02/11/22 06:24> Vital Signs: Last Vital Signs Temp 97.9 F 02/11/22 07:46 Pulse 82 02/11/22 07:46 Resp 20 02/11/22 07:46 BP 112/62 02/11/22 07:46 Pulse Ox 98 02/11/22 07:46 O2 Del Method 02/11/22 07:46 O2 Flow Rate 3 02/11/22 07:46 BMI result Body Mass Index 24.7 <DONTA Maynard - Last Filed: 02/11/22 09:49> Appearance: Alert.? Oriented X3.? No acute distress.? Head: Normocephalic, atraumatic, no step-offs or deformities Eyes: Pupils equal, round and reactive to light.? ENT: Pharynx normal.? Neck: Normal inspection.? Neck supple.? CVS: Normal heart rate and rhythm.? Pulses normal.? Respiratory: No respiratory distress.? Breath sounds normal.? Abdomen: Soft and nontender.? Skin: Skin warm and dry.? Normal skin color.? Normal skin turgor.? Extremities: No lower extremity edema.? No calf ttp. Global weakness with left-sided deficits from prior CVA this is patient's baseline. Patient has a fractured left sided humerus, 2+ radial pulses equal bilateral. Back: No midline tenderness, no C-spine tenderness, full range of motion, no CVA tenderness bilaterally Neuro: Oriented X 3.? No motor deficit.? No sensory deficit. CN 2-12 intact <DONTA Rainey - Last Filed: 02/11/22 02:50> Course Course Course Narrative: -02/11/22--7232--patient received doses of IV vancomycin, meropenem, and Rocephin in the ED last night, plan was for admission however was never admitted? Patient is agreeable to stay. Patient admitted for further management <DONTA Maynard - Last Filed: 02/11/22 09:49> Reevaluation(s) Reevaluation #1: Patient's CBC appears to be around baseline. Chemistry with no acute electrolyte abnormalities requiring intervention. Total CPK 40, no signs of rhabdomyolysis. Urine positive for urinary tract infection. Urine toxicology positive for benzodiazepines, ethanol negative. COVID negative. <DONTA Rainey Last Filed: 02/11/22 02:50> Time: 01:33 <DONTA Rainey Last Filed: 02/11/22 02:50> Reevaluation #2: At this time patient's Dumas catheter will be replaced, new one will be placed as patient does have a UTI in her Dumas catheter is not properly inserted. Patient will be given ceftriaxone for urinary tract infection. I did discuss this case with the hospitalist for admission as I was concerned that patient is weak and has a urinary tract infection and cannot care for themselves however hospitalist feels as though patient is not meeting inpatient medical criteria. They feel as though patient would be appropriate for physical therapy, case management to get more resources and patient can be treated with p.o. antibiotics. To note, patient does mention that her recently had a stroke who takes care of her at home, patient is requiring more assistance at home and is not properly caring for herself. Patient has adult failure to thrive, physical deconditioning, and is living in an unsafe living environment. At this time patient will be placed in physician observation to allow more time to be evaluated by Physical therapy and Case Management.. At time observation was started patient common cooperative no acute distress. <DONTA Rainey - Last Filed: 02/11/22 02:50> Time: 01:42 <DONTA Rainey - Last Filed: 02/11/22 02:50> Time: 04:35 <Augusto Law MD - Last Filed: 02/11/22 04:37> Consultations Consultation #1: Patient with chronic Dumas catheter HPI reviewed id notes were reviewed patient has chronic Crohn as a sauer with Pseudomonas and Enterobacter in the past not treated at this time patient lactic acid level is normal blood cultures are drawn will not start on antibiotics patient for case management <Augusto Law MD - Last Filed: 02/11/22 04:37> MDM - Weakness MDM Narrative Medical decision making narrative: 2034 61-year-old female currently wheelchair-bound with prominent left-sided weakness secondary to CVA and MS presenting to the emergency department for weakness, inability to get while on the commode, covered in feces, reports issues with her urinary Dumas catheterization. Physical examination appears to be at patient's baseline, no acute findings. Patient does have a fractured left-sided humerus however neurovascularly intact. Patient has left-sided chronic weakness and global weakness. Lungs clear, regular rate and rhythm, abdomen soft nontender nondistended. Patient following commands alert and oriented x4. Will rule out UTI, Dumas catheter issues, electrolyte abnormalities, EKG changes, infection. Patient did not sustain a fall, no head strike, no need for imaging at this time CT [place] Head Rule negative. Plan at this time is to obtain basic labs, urine, COVID, replace patient's Dumas catheter. <DONTA Rainey - Last Filed: 02/11/22 02:50> 2034 61-year-old female currently wheelchair-bound with prominent left-sided weakness secondary to CVA and MS presenting to the emergency department for weakness, inability to get while on the commode, covered in feces, reports issues with her urinary Dumas catheterization. Physical examination appears to be at patient's baseline, no acute findings. Patient does have a fractured left-sided humerus however neurovascularly intact. Patient has left-sided chronic weakness and global weakness. Lungs clear, regular rate and rhythm, abdomen soft nontender nondistended. Patient following commands alert and oriented x4. Will rule out UTI, Dumas catheter issues, electrolyte abnormalities, EKG changes, infection. Patient did not sustain a fall, no head strike, no need for imaging at this time CT [place] Head Rule negative. Plan at this time is to obtain basic labs, urine, COVID, replace patient's Dumas catheter. <Augusto Law MD - Last Filed: 02/11/22 04:37> Medical Records Attestation: I reviewed the patient's medical records. <DONTA Rainey - Last Filed: 02/11/22 02:50> Lab Data Attestation: I reviewed the patient's lab results. <DONTA Rainey - Last Filed: 02/11/22 02:50> Result diagrams: : 02/10/22 22:26 02/10/22 22:26 <DONTA Rainey - Last Filed: 02/11/22 02:50> Labs: Lab Results 02/10/22 02/10/22 02/10/22 Range/Units 22:26 22:26 22:26 WBC 7.4 (4.8-10.8) X10*3/uL RBC 4.78 (4.20-5.50) X10*6/uL Hgb 14.6 (12.0-16.0) g/dl Hct 44.7 (37.0-47.0) % MCV 93.5 (80.0-98.0) fL MCH 30.5 (27.0-33.0) pg MCHC 32.7 (31.0-35.0) g/dl RDW 14.2 (11.0-16.0) % Plt Count 336 (160-400) X10*3/uL MPV 9.3 L (9.4-12.3) fL Immature Gran % (Auto) 0.8 H (0.0-0.4) % Neut % (Auto) 79.2 H (45-73) % Lymph % (Auto) 9.1 L (20-40) % Travis % (Auto) 8.8 (2-11) % Eos % (Auto) 1.6 (0-4) % Baso % (Auto) 0.5 (0-2) % Lymph # (Auto) 0.7 L (1.2-4.9) X10*3/uL Travis # (Auto) 0.7 (0.1-1.2) X10*3/uL Eos # (Auto) 0.1 (0.0-0.4) X10*3/uL Baso # (Auto) 0.0 (0.0-0.2) X10*3/uL Abs Immat Gran (auto) 0.06 H (0.00-0.03) X10*3/uL Absolute Neuts (auto) 5.9 (2.0-8.3) x10*3/uL Absolute Nucleated RBC 0.000 (0.0-0.012) X10*3/uL Nucleated RBC % (auto) 0.0 (0.0-0.2) /100WBC Sodium 141 (135-145) mmol/L Potassium 4.2 (3.3-5.1) mmol/L Chloride 100 (96-108) mmol/L Carbon Dioxide 30 H (22-29) mmol/L Anion Gap 15 (12-20) BUN 8 L (9-16) mg/dL Creatinine 0.71 (0.5-1.4) mg/dL Estim Creat Clear Calc 75.9 Estimated GFR > 60 Random Glucose 115 (60-115) mg/dL Lactic Acid (0.5-2.0) mmol/L Calcium 9.4 D (8.4-10.2) mg/dL Magnesium 2.1 (1.6-2.6) mg/dL Total Bilirubin < 0.2 (0.0-1.0) mg/dL AST 15 (5-31) U/L ALT 17 (0-31) U/L Alkaline Phosphatase 104 (39-117) U/L Total Creatine Kinase 40 D (26-140) U/L Total Protein 6.9 (6.5-8.0) g/dL Albumin 3.9 (3.5-5.0) g/dL Urine Color Urine Appearance Urine pH (5.0-9.0) Ur Specific [place] (1.005-1.025) Urine Protein (Neg-Trace) mg/dL Urine Glucose (UA) (Negative) mg/dL Urine Ketones (Negative) mg/dL Urine Blood (Negative) Urine Nitrite (Negative) Ur Leukocyte Esterase (Negative) Urine RBC (0-2) /HPF Urine WBC (0-5) /HPF Ur Squamous Epith Cells (0-2) /HPF Calcium Oxalate Crystal Urine Bacteria (None Seen) Hyaline Casts (0-2) /LPF Urine Opiates Screen (Not Detect) Urine Fentanyl Screen (Not Detect) Ur Barbiturates Screen (Not Detect) Ur Phencyclidine Scrn (Not Detect) Ur Amphetamines Screen (Not Detect) U Benzodiazepines Scrn (Not Detect) Urine Cocaine Screen (Not Detect) U Marijuana (THC) Screen (Not Detect) Ethyl Alcohol mg/dL COVID-19 (ALESSANDRA) Invalid (Negative) COVID-19 Clin Com See Note 02/10/22 02/10/22 02/10/22 Range/Units 22:26 23:19 23:27 WBC (4.8-10.8) X10*3/uL RBC (4.20-5.50) X10*6/uL Hgb (12.0-16.0) g/dl Hct (37.0-47.0) % MCV (80.0-98.0) fL MCH (27.0-33.0) pg MCHC (31.0-35.0) g/dl RDW (11.0-16.0) % Plt Count (160-400) X10*3/uL MPV (9.4-12.3) fL Immature Gran % (Auto) (0.0-0.4) % Neut % (Auto) (45-73) % Lymph % (Auto) (20-40) % Travis % (Auto) (2-11) % Eos % (Auto) (0-4) % Baso % (Auto) (0-2) % Lymph # (Auto) (1.2-4.9) X10*3/uL Travis # (Auto) (0.1-1.2) X10*3/uL Eos # (Auto) (0.0-0.4) X10*3/uL Baso # (Auto) (0.0-0.2) X10*3/uL Abs Immat Gran (auto) (0.00-0.03) X10*3/uL Absolute Neuts (auto) (2.0-8.3) x10*3/uL Absolute Nucleated RBC (0.0-0.012) X10*3/uL Nucleated RBC % (auto) (0.0-0.2) /100WBC Sodium (135-145) mmol/L Potassium (3.3-5.1) mmol/L Chloride (96-108) mmol/L Carbon Dioxide (22-29) mmol/L Anion Gap (12-20) BUN (9-16) mg/dL Creatinine (0.5-1.4) mg/dL Estim Creat Clear Calc Estimated GFR Random Glucose (60-115) mg/dL Lactic Acid (0.5-2.0) mmol/L Calcium (8.4-10.2) mg/dL Magnesium (1.6-2.6) mg/dL Total Bilirubin (0.0-1.0) mg/dL AST (5-31) U/L ALT (0-31) U/L Alkaline Phosphatase (39-117) U/L Total Creatine Kinase (26-140) U/L Total Protein (6.5-8.0) g/dL Albumin (3.5-5.0) g/dL Urine Color Dark Yellow Urine Appearance Cloudy Urine pH 5.5 (5.0-9.0) Ur Specific [place] 1.025 (1.005-1.025) Urine Protein Trace (Neg-Trace) mg/dL Urine Glucose (UA) Negative (Negative) mg/dL Urine Ketones Trace (Negative) mg/dL Urine Blood Trace H (Negative) Urine Nitrite Positive H (Negative) Ur Leukocyte Esterase Moderate (2+) H (Negative) Urine RBC >20 H (0-2) /HPF Urine WBC >50 H (0-5) /HPF Ur Squamous Epith Cells 3-5 (0-2) /HPF Calcium Oxalate Crystal Present Urine Bacteria 2+ (None Seen) Hyaline Casts 3-5 (0-2) /LPF Urine Opiates Screen (Not Detect) Urine Fentanyl Screen (Not Detect) Ur Barbiturates Screen (Not Detect) Ur Phencyclidine Scrn (Not Detect) Ur Amphetamines Screen (Not Detect) U Benzodiazepines Scrn (Not Detect) Urine Cocaine Screen (Not Detect) U Marijuana (THC) Screen (Not Detect) Ethyl Alcohol < 10 mg/dL COVID-19 (ALESSANDRA) Negative (Negative) COVID-19 Clin Com See Note 02/10/22 02/11/22 Range/Units 23:27 02:44 WBC (4.8-10.8) X10*3/uL RBC (4.20-5.50) X10*6/uL Hgb (12.0-16.0) g/dl Hct (37.0-47.0) % MCV (80.0-98.0) fL MCH (27.0-33.0) pg MCHC (31.0-35.0) g/dl RDW (11.0-16.0) % Plt Count (160-400) X10*3/uL MPV (9.4-12.3) fL Immature Gran % (Auto) (0.0-0.4) % Neut % (Auto) (45-73) % Lymph % (Auto) (20-40) % Travis % (Auto) (2-11) % Eos % (Auto) (0-4) % Baso % (Auto) (0-2) % Lymph # (Auto) (1.2-4.9) X10*3/uL Travis # (Auto) (0.1-1.2) X10*3/uL Eos # (Auto) (0.0-0.4) X10*3/uL Baso # (Auto) (0.0-0.2) X10*3/uL Abs Immat Gran (auto) (0.00-0.03) X10*3/uL Absolute Neuts (auto) (2.0-8.3) x10*3/uL Absolute Nucleated RBC (0.0-0.012) X10*3/uL Nucleated RBC % (auto) (0.0-0.2) /100WBC Sodium (135-145) mmol/L Potassium (3.3-5.1) mmol/L Chloride (96-108) mmol/L Carbon Dioxide (22-29) mmol/L Anion Gap (12-20) BUN (9-16) mg/dL Creatinine (0.5-1.4) mg/dL Estim Creat Clear Calc Estimated GFR Random Glucose (60-115) mg/dL Lactic Acid 1.1 (0.5-2.0) mmol/L Calcium (8.4-10.2) mg/dL Magnesium (1.6-2.6) mg/dL Total Bilirubin (0.0-1.0) mg/dL AST (5-31) U/L ALT (0-31) U/L Alkaline Phosphatase (39-117) U/L Total Creatine Kinase (26-140) U/L Total Protein (6.5-8.0) g/dL Albumin (3.5-5.0) g/dL Urine Color Urine Appearance Urine pH (5.0-9.0) Ur Specific [place] (1.005-1.025) Urine Protein (Neg-Trace) mg/dL Urine Glucose (UA) (Negative) mg/dL Urine Ketones (Negative) mg/dL Urine Blood (Negative) Urine Nitrite (Negative) Ur Leukocyte Esterase (Negative) Urine RBC (0-2) /HPF Urine WBC (0-5) /HPF Ur Squamous Epith Cells (0-2) /HPF Calcium Oxalate Crystal Urine Bacteria (None Seen) Hyaline Casts (0-2) /LPF Urine Opiates Screen Not Detected (Not Detect) Urine Fentanyl Screen Not Detected (Not Detect) Ur Barbiturates Screen Not Detected (Not Detect) Ur Phencyclidine Scrn Not Detected (Not Detect) Ur Amphetamines Screen Not Detected (Not Detect) U Benzodiazepines Scrn POSITIVE H (Not Detect) Urine Cocaine Screen Not Detected (Not Detect) U Marijuana (THC) Screen Not Detected (Not Detect) Ethyl Alcohol mg/dL COVID-19 (ALESSANDRA) (Negative) COVID-19 Clin Com <DONTA Rainey - Last Filed: 02/11/22 02:50> Lab Results 02/10/22 02/10/22 02/10/22 Range/Units 22:26 22:26 22:26 WBC 7.4 (4.8-10.8) X10*3/uL RBC 4.78 (4.20-5.50) X10*6/uL Hgb 14.6 (12.0-16.0) g/dl Hct 44.7 (37.0-47.0) % MCV 93.5 (80.0-98.0) fL MCH 30.5 (27.0-33.0) pg MCHC 32.7 (31.0-35.0) g/dl RDW 14.2 (11.0-16.0) % Plt Count 336 (160-400) X10*3/uL MPV 9.3 L (9.4-12.3) fL Immature Gran % (Auto) 0.8 H (0.0-0.4) % Neut % (Auto) 79.2 H (45-73) % Lymph % (Auto) 9.1 L (20-40) % Travis % (Auto) 8.8 (2-11) % Eos % (Auto) 1.6 (0-4) % Baso % (Auto) 0.5 (0-2) % Lymph # (Auto) 0.7 L (1.2-4.9) X10*3/uL Travis # (Auto) 0.7 (0.1-1.2) X10*3/uL Eos # (Auto) 0.1 (0.0-0.4) X10*3/uL Baso # (Auto) 0.0 (0.0-0.2) X10*3/uL Abs Immat Gran (auto) 0.06 H (0.00-0.03) X10*3/uL Absolute Neuts (auto) 5.9 (2.0-8.3) x10*3/uL Absolute Nucleated RBC 0.000 (0.0-0.012) X10*3/uL Nucleated RBC % (auto) 0.0 (0.0-0.2) /100WBC Sodium 141 (135-145) mmol/L Potassium 4.2 (3.3-5.1) mmol/L Chloride 100 (96-108) mmol/L Carbon Dioxide 30 H (22-29) mmol/L Anion Gap 15 (12-20) BUN 8 L (9-16) mg/dL Creatinine 0.71 (0.5-1.4) mg/dL Estim Creat Clear Calc 75.9 Estimated GFR > 60 Random Glucose 115 (60-115) mg/dL Lactic Acid (0.5-2.0) mmol/L Calcium 9.4 D (8.4-10.2) mg/dL Magnesium 2.1 (1.6-2.6) mg/dL Total Bilirubin < 0.2 (0.0-1.0) mg/dL AST 15 (5-31) U/L ALT 17 (0-31) U/L Alkaline Phosphatase 104 (39-117) U/L Total Creatine Kinase 40 D (26-140) U/L Total Protein 6.9 (6.5-8.0) g/dL Albumin 3.9 (3.5-5.0) g/dL Urine Color Urine Appearance Urine pH (5.0-9.0) Ur Specific [place] (1.005-1.025) Urine Protein (Neg-Trace) mg/dL Urine Glucose (UA) (Negative) mg/dL Urine Ketones (Negative) mg/dL Urine Blood (Negative) Urine Nitrite (Negative) Ur Leukocyte Esterase (Negative) Urine RBC (0-2) /HPF Urine WBC (0-5) /HPF Ur Squamous Epith Cells (0-2) /HPF Calcium Oxalate Crystal Urine Bacteria (None Seen) Hyaline Casts (0-2) /LPF Urine Opiates Screen (Not Detect) Urine Fentanyl Screen (Not Detect) Ur Barbiturates Screen (Not Detect) Ur Phencyclidine Scrn (Not Detect) Ur Amphetamines Screen (Not Detect) U Benzodiazepines Scrn (Not Detect) Urine Cocaine Screen (Not Detect) U Marijuana (THC) Screen (Not Detect) Ethyl Alcohol mg/dL COVID-19 (ALESSANDRA) Invalid (Negative) COVID-19 Clin Com See Note 02/10/22 02/10/22 02/10/22 Range/Units 22:26 23:19 23:27 WBC (4.8-10.8) X10*3/uL RBC (4.20-5.50) X10*6/uL Hgb (12.0-16.0) g/dl Hct (37.0-47.0) % MCV (80.0-98.0) fL MCH (27.0-33.0) pg MCHC (31.0-35.0) g/dl RDW (11.0-16.0) % Plt Count (160-400) X10*3/uL MPV (9.4-12.3) fL Immature Gran % (Auto) (0.0-0.4) % Neut % (Auto) (45-73) % Lymph % (Auto) (20-40) % Travis % (Auto) (2-11) % Eos % (Auto) (0-4) % Baso % (Auto) (0-2) % Lymph # (Auto) (1.2-4.9) X10*3/uL Travis # (Auto) (0.1-1.2) X10*3/uL Eos # (Auto) (0.0-0.4) X10*3/uL Baso # (Auto) (0.0-0.2) X10*3/uL Abs Immat Gran (auto) (0.00-0.03) X10*3/uL Absolute Neuts (auto) (2.0-8.3) x10*3/uL Absolute Nucleated RBC (0.0-0.012) X10*3/uL Nucleated RBC % (auto) (0.0-0.2) /100WBC Sodium (135-145) mmol/L Potassium (3.3-5.1) mmol/L Chloride (96-108) mmol/L Carbon Dioxide (22-29) mmol/L Anion Gap (12-20) BUN (9-16) mg/dL Creatinine (0.5-1.4) mg/dL Estim Creat Clear Calc Estimated GFR Random Glucose (60-115) mg/dL Lactic Acid (0.5-2.0) mmol/L Calcium (8.4-10.2) mg/dL Magnesium (1.6-2.6) mg/dL Total Bilirubin (0.0-1.0) mg/dL AST (5-31) U/L ALT (0-31) U/L Alkaline Phosphatase (39-117) U/L Total Creatine Kinase (26-140) U/L Total Protein (6.5-8.0) g/dL Albumin (3.5-5.0) g/dL Urine Color Dark Yellow Urine Appearance Cloudy Urine pH 5.5 (5.0-9.0) Ur Specific [place] 1.025 (1.005-1.025) Urine Protein Trace (Neg-Trace) mg/dL Urine Glucose (UA) Negative (Negative) mg/dL Urine Ketones Trace (Negative) mg/dL Urine Blood Trace H (Negative) Urine Nitrite Positive H (Negative) Ur Leukocyte Esterase Moderate (2+) H (Negative) Urine RBC >20 H (0-2) /HPF Urine WBC >50 H (0-5) /HPF Ur Squamous Epith Cells 3-5 (0-2) /HPF Calcium Oxalate Crystal Present Urine Bacteria 2+ (None Seen) Hyaline Casts 3-5 (0-2) /LPF Urine Opiates Screen (Not Detect) Urine Fentanyl Screen (Not Detect) Ur Barbiturates Screen (Not Detect) Ur Phencyclidine Scrn (Not Detect) Ur Amphetamines Screen (Not Detect) U Benzodiazepines Scrn (Not Detect) Urine Cocaine Screen (Not Detect) U Marijuana (THC) Screen (Not Detect) Ethyl Alcohol < 10 mg/dL COVID-19 (ALESSANDRA) Negative (Negative) COVID-19 Clin Com See Note 02/10/22 02/11/22 Range/Units 23:27 02:44 WBC (4.8-10.8) X10*3/uL RBC (4.20-5.50) X10*6/uL Hgb (12.0-16.0) g/dl Hct (37.0-47.0) % MCV (80.0-98.0) fL MCH (27.0-33.0) pg MCHC (31.0-35.0) g/dl RDW (11.0-16.0) % Plt Count (160-400) X10*3/uL MPV (9.4-12.3) fL Immature Gran % (Auto) (0.0-0.4) % Neut % (Auto) (45-73) % Lymph % (Auto) (20-40) % Travis % (Auto) (2-11) % Eos % (Auto) (0-4) % Baso % (Auto) (0-2) % Lymph # (Auto) (1.2-4.9) X10*3/uL Travis # (Auto) (0.1-1.2) X10*3/uL Eos # (Auto) (0.0-0.4) X10*3/uL Baso # (Auto) (0.0-0.2) X10*3/uL Abs Immat Gran (auto) (0.00-0.03) X10*3/uL Absolute Neuts (auto) (2.0-8.3) x10*3/uL Absolute Nucleated RBC (0.0-0.012) X10*3/uL Nucleated RBC % (auto) (0.0-0.2) /100WBC Sodium (135-145) mmol/L Potassium (3.3-5.1) mmol/L Chloride (96-108) mmol/L Carbon Dioxide (22-29) mmol/L Anion Gap (12-20) BUN (9-16) mg/dL Creatinine (0.5-1.4) mg/dL Estim Creat Clear Calc Estimated GFR Random Glucose (60-115) mg/dL Lactic Acid 1.1 (0.5-2.0) mmol/L Calcium (8.4-10.2) mg/dL Magnesium (1.6-2.6) mg/dL Total Bilirubin (0.0-1.0) mg/dL AST (5-31) U/L ALT (0-31) U/L Alkaline Phosphatase (39-117) U/L Total Creatine Kinase (26-140) U/L Total Protein (6.5-8.0) g/dL Albumin (3.5-5.0) g/dL Urine Color Urine Appearance Urine pH (5.0-9.0) Ur Specific [place] (1.005-1.025) Urine Protein (Neg-Trace) mg/dL Urine Glucose (UA) (Negative) mg/dL Urine Ketones (Negative) mg/dL Urine Blood (Negative) Urine Nitrite (Negative) Ur Leukocyte Esterase (Negative) Urine RBC (0-2) /HPF Urine WBC (0-5) /HPF Ur Squamous Epith Cells (0-2) /HPF Calcium Oxalate Crystal Urine Bacteria (None Seen) Hyaline Casts (0-2) /LPF Urine Opiates Screen Not Detected (Not Detect) Urine Fentanyl Screen Not Detected (Not Detect) Ur Barbiturates Screen Not Detected (Not Detect) Ur Phencyclidine Scrn Not Detected (Not Detect) Ur Amphetamines Screen Not Detected (Not Detect) U Benzodiazepines Scrn POSITIVE H (Not Detect) Urine Cocaine Screen Not Detected (Not Detect) U Marijuana (THC) Screen Not Detected (Not Detect) Ethyl Alcohol mg/dL COVID-19 (ALESSANDRA) (Negative) COVID-19 Clin Com <Augusto Law MD - Last Filed: 02/11/22 04:37> Lab Results 02/10/22 02/10/22 02/10/22 Range/Units 22:26 22:26 22:26 WBC 7.4 (4.8-10.8) X10*3/uL RBC 4.78 (4.20-5.50) X10*6/uL Hgb 14.6 (12.0-16.0) g/dl Hct 44.7 (37.0-47.0) % MCV 93.5 (80.0-98.0) fL MCH 30.5 (27.0-33.0) pg MCHC 32.7 (31.0-35.0) g/dl RDW 14.2 (11.0-16.0) % Plt Count 336 (160-400) X10*3/uL MPV 9.3 L (9.4-12.3) fL Immature Gran % (Auto) 0.8 H (0.0-0.4) % Neut % (Auto) 79.2 H (45-73) % Lymph % (Auto) 9.1 L (20-40) % Travis % (Auto) 8.8 (2-11) % Eos % (Auto) 1.6 (0-4) % Baso % (Auto) 0.5 (0-2) % Lymph # (Auto) 0.7 L (1.2-4.9) X10*3/uL Travis # (Auto) 0.7 (0.1-1.2) X10*3/uL Eos # (Auto) 0.1 (0.0-0.4) X10*3/uL Baso # (Auto) 0.0 (0.0-0.2) X10*3/uL Abs Immat Gran (auto) 0.06 H (0.00-0.03) X10*3/uL Absolute Neuts (auto) 5.9 (2.0-8.3) x10*3/uL Absolute Nucleated RBC 0.000 (0.0-0.012) X10*3/uL Nucleated RBC % (auto) 0.0 (0.0-0.2) /100WBC Sodium 141 (135-145) mmol/L Potassium 4.2 (3.3-5.1) mmol/L Chloride 100 (96-108) mmol/L Carbon Dioxide 30 H (22-29) mmol/L Anion Gap 15 (12-20) BUN 8 L (9-16) mg/dL Creatinine 0.71 (0.5-1.4) mg/dL Estim Creat Clear Calc 75.9 Estimated GFR > 60 Random Glucose 115 (60-115) mg/dL Lactic Acid (0.5-2.0) mmol/L Calcium 9.4 D (8.4-10.2) mg/dL Magnesium 2.1 (1.6-2.6) mg/dL Total Bilirubin < 0.2 (0.0-1.0) mg/dL AST 15 (5-31) U/L ALT 17 (0-31) U/L Alkaline Phosphatase 104 (39-117) U/L Total Creatine Kinase 40 D (26-140) U/L Total Protein 6.9 (6.5-8.0) g/dL Albumin 3.9 (3.5-5.0) g/dL Urine Color Urine Appearance Urine pH (5.0-9.0) Ur Specific [place] (1.005-1.025) Urine Protein (Neg-Trace) mg/dL Urine Glucose (UA) (Negative) mg/dL Urine Ketones (Negative) mg/dL Urine Blood (Negative) Urine Nitrite (Negative) Ur Leukocyte Esterase (Negative) Urine RBC (0-2) /HPF Urine WBC (0-5) /HPF Ur Squamous Epith Cells (0-2) /HPF Calcium Oxalate Crystal Urine Bacteria (None Seen) Hyaline Casts (0-2) /LPF Urine Opiates Screen (Not Detect) Urine Fentanyl Screen (Not Detect) Ur Barbiturates Screen (Not Detect) Ur Phencyclidine Scrn (Not Detect) Ur Amphetamines Screen (Not Detect) U Benzodiazepines Scrn (Not Detect) Urine Cocaine Screen (Not Detect) U Marijuana (THC) Screen (Not Detect) Ethyl Alcohol mg/dL COVID-19 (ALESSANDRA) Invalid (Negative) COVID-19 Clin Com See Note 02/10/22 02/10/22 02/10/22 Range/Units 22:26 23:19 23:27 WBC (4.8-10.8) X10*3/uL RBC (4.20-5.50) X10*6/uL Hgb (12.0-16.0) g/dl Hct (37.0-47.0) % MCV (80.0-98.0) fL MCH (27.0-33.0) pg MCHC (31.0-35.0) g/dl RDW (11.0-16.0) % Plt Count (160-400) X10*3/uL MPV (9.4-12.3) fL Immature Gran % (Auto) (0.0-0.4) % Neut % (Auto) (45-73) % Lymph % (Auto) (20-40) % Travis % (Auto) (2-11) % Eos % (Auto) (0-4) % Baso % (Auto) (0-2) % Lymph # (Auto) (1.2-4.9) X10*3/uL Travis # (Auto) (0.1-1.2) X10*3/uL Eos # (Auto) (0.0-0.4) X10*3/uL Baso # (Auto) (0.0-0.2) X10*3/uL Abs Immat Gran (auto) (0.00-0.03) X10*3/uL Absolute Neuts (auto) (2.0-8.3) x10*3/uL Absolute Nucleated RBC (0.0-0.012) X10*3/uL Nucleated RBC % (auto) (0.0-0.2) /100WBC Sodium (135-145) mmol/L Potassium (3.3-5.1) mmol/L Chloride (96-108) mmol/L Carbon Dioxide (22-29) mmol/L Anion Gap (12-20) BUN (9-16) mg/dL Creatinine (0.5-1.4) mg/dL Estim Creat Clear Calc Estimated GFR Random Glucose (60-115) mg/dL Lactic Acid (0.5-2.0) mmol/L Calcium (8.4-10.2) mg/dL Magnesium (1.6-2.6) mg/dL Total Bilirubin (0.0-1.0) mg/dL AST (5-31) U/L ALT (0-31) U/L Alkaline Phosphatase (39-117) U/L Total Creatine Kinase (26-140) U/L Total Protein (6.5-8.0) g/dL Albumin (3.5-5.0) g/dL Urine Color Dark Yellow Urine Appearance Cloudy Urine pH 5.5 (5.0-9.0) Ur Specific [place] 1.025 (1.005-1.025) Urine Protein Trace (Neg-Trace) mg/dL Urine Glucose (UA) Negative (Negative) mg/dL Urine Ketones Trace (Negative) mg/dL Urine Blood Trace H (Negative) Urine Nitrite Positive H (Negative) Ur Leukocyte Esterase Moderate (2+) H (Negative) Urine RBC >20 H (0-2) /HPF Urine WBC >50 H (0-5) /HPF Ur Squamous Epith Cells 3-5 (0-2) /HPF Calcium Oxalate Crystal Present Urine Bacteria 2+ (None Seen) Hyaline Casts 3-5 (0-2) /LPF Urine Opiates Screen (Not Detect) Urine Fentanyl Screen (Not Detect) Ur Barbiturates Screen (Not Detect) Ur Phencyclidine Scrn (Not Detect) Ur Amphetamines Screen (Not Detect) U Benzodiazepines Scrn (Not Detect) Urine Cocaine Screen (Not Detect) U Marijuana (THC) Screen (Not Detect) Ethyl Alcohol < 10 mg/dL COVID-19 (ALESSANDRA) Negative (Negative) COVID-19 Clin Com See Note 02/10/22 02/11/22 Range/Units 23:27 02:44 WBC (4.8-10.8) X10*3/uL RBC (4.20-5.50) X10*6/uL Hgb (12.0-16.0) g/dl Hct (37.0-47.0) % MCV (80.0-98.0) fL MCH (27.0-33.0) pg MCHC (31.0-35.0) g/dl RDW (11.0-16.0) % Plt Count (160-400) X10*3/uL MPV (9.4-12.3) fL Immature Gran % (Auto) (0.0-0.4) % Neut % (Auto) (45-73) % Lymph % (Auto) (20-40) % Travis % (Auto) (2-11) % Eos % (Auto) (0-4) % Baso % (Auto) (0-2) % Lymph # (Auto) (1.2-4.9) X10*3/uL [place] # (Auto) (0.1-1.2) X10*3/uL Eos # (Auto) (0.0-0.4) X10*3/uL Baso # (Auto) (0.0-0.2) X10*3/uL Abs Immat Gran (auto) (0.00-0.03) X10*3/uL Absolute Neuts (auto) (2.0-8.3) x10*3/uL Absolute Nucleated RBC (0.0-0.012) X10*3/uL Nucleated RBC % (auto) (0.0-0.2) /100WBC Sodium (135-145) mmol/L Potassium (3.3-5.1) mmol/L Chloride (96-108) mmol/L Carbon Dioxide (22-29) mmol/L Anion Gap (12-20) BUN (9-16) mg/dL Creatinine (0.5-1.4) mg/dL Estim Creat Clear Calc Estimated GFR Random Glucose (60-115) mg/dL Lactic Acid 1.1 (0.5-2.0) mmol/L Calcium (8.4-10.2) mg/dL Magnesium (1.6-2.6) mg/dL Total Bilirubin (0.0-1.0) mg/dL AST (5-31) U/L ALT (0-31) U/L Alkaline Phosphatase (39-117) U/L Total Creatine Kinase (26-140) U/L Total Protein (6.5-8.0) g/dL Albumin (3.5-5.0) g/dL Urine Color Urine Appearance Urine pH (5.0-9.0) Ur Specific [place] (1.005-1.025) Urine Protein (Neg-Trace) mg/dL Urine Glucose (UA) (Negative) mg/dL Urine Ketones (Negative) mg/dL Urine Blood (Negative) Urine Nitrite (Negative) Ur Leukocyte Esterase (Negative) Urine RBC (0-2) /HPF Urine WBC (0-5) /HPF Ur Squamous Epith Cells (0-2) /HPF Calcium Oxalate Crystal Urine Bacteria (None Seen) Hyaline Casts (0-2) /LPF Urine Opiates Screen Not Detected (Not Detect) Urine Fentanyl Screen Not Detected (Not Detect) Ur Barbiturates Screen Not Detected (Not Detect) Ur Phencyclidine Scrn Not Detected (Not Detect) Ur Amphetamines Screen Not Detected (Not Detect) U Benzodiazepines Scrn POSITIVE H (Not Detect) Urine Cocaine Screen Not Detected (Not Detect) U Marijuana (THC) Screen Not Detected (Not Detect) Ethyl Alcohol mg/dL COVID-19 (ALESSANDRA) (Negative) COVID-19 Clin Com <Tim Perla MD - Last Filed: 02/11/22 06:24> Lab Results 02/10/22 02/10/22 02/10/22 Range/Units 22:26 22:26 22:26 WBC 7.4 (4.8-10.8) X10*3/uL RBC 4.78 (4.20-5.50) X10*6/uL Hgb 14.6 (12.0-16.0) g/dl Hct 44.7 (37.0-47.0) % MCV 93.5 (80.0-98.0) fL MCH 30.5 (27.0-33.0) pg MCHC 32.7 (31.0-35.0) g/dl RDW 14.2 (11.0-16.0) % Plt Count 336 (160-400) X10*3/uL MPV 9.3 L (9.4-12.3) fL Immature Gran % (Auto) 0.8 H (0.0-0.4) % Neut % (Auto) 79.2 H (45-73) % Lymph % (Auto) 9.1 L (20-40) % Travis % (Auto) 8.8 (2-11) % Eos % (Auto) 1.6 (0-4) % Baso % (Auto) 0.5 (0-2) % Lymph # (Auto) 0.7 L (1.2-4.9) X10*3/uL Travis # (Auto) 0.7 (0.1-1.2) X10*3/uL Eos # (Auto) 0.1 (0.0-0.4) X10*3/uL Baso # (Auto) 0.0 (0.0-0.2) X10*3/uL Abs Immat Gran (auto) 0.06 H (0.00-0.03) X10*3/uL Absolute Neuts (auto) 5.9 (2.0-8.3) x10*3/uL Absolute Nucleated RBC 0.000 (0.0-0.012) X10*3/uL Nucleated RBC % (auto) 0.0 (0.0-0.2) /100WBC Sodium 141 (135-145) mmol/L Potassium 4.2 (3.3-5.1) mmol/L Chloride 100 (96-108) mmol/L Carbon Dioxide 30 H (22-29) mmol/L Anion Gap 15 (12-20) BUN 8 L (9-16) mg/dL Creatinine 0.71 (0.5-1.4) mg/dL Estim Creat Clear Calc 75.9 Estimated GFR > 60 Random Glucose 115 (60-115) mg/dL Lactic Acid (0.5-2.0) mmol/L Calcium 9.4 D (8.4-10.2) mg/dL Magnesium 2.1 (1.6-2.6) mg/dL Total Bilirubin < 0.2 (0.0-1.0) mg/dL AST 15 (5-31) U/L ALT 17 (0-31) U/L Alkaline Phosphatase 104 (39-117) U/L Total Creatine Kinase 40 D (26-140) U/L Total Protein 6.9 (6.5-8.0) g/dL Albumin 3.9 (3.5-5.0) g/dL Urine Color Urine Appearance Urine pH (5.0-9.0) Ur Specific [place] (1.005-1.025) Urine Protein (Neg-Trace) mg/dL Urine Glucose (UA) (Negative) mg/dL Urine Ketones (Negative) mg/dL Urine Blood (Negative) Urine Nitrite (Negative) Ur Leukocyte Esterase (Negative) Urine RBC (0-2) /HPF Urine WBC (0-5) /HPF Ur Squamous Epith Cells (0-2) /HPF Calcium Oxalate Crystal Urine Bacteria (None Seen) Hyaline Casts (0-2) /LPF Urine Opiates Screen (Not Detect) Urine Fentanyl Screen (Not Detect) Ur Barbiturates Screen (Not Detect) Ur Phencyclidine Scrn (Not Detect) Ur Amphetamines Screen (Not Detect) U Benzodiazepines Scrn (Not Detect) Urine Cocaine Screen (Not Detect) U Marijuana (THC) Screen (Not Detect) Ethyl Alcohol mg/dL COVID-19 (ALESSANDRA) Invalid (Negative) COVID-19 Clin Com See Note 02/10/22 02/10/22 02/10/22 Range/Units 22:26 23:19 23:27 WBC (4.8-10.8) X10*3/uL RBC (4.20-5.50) X10*6/uL Hgb (12.0-16.0) g/dl Hct (37.0-47.0) % MCV (80.0-98.0) fL MCH (27.0-33.0) pg MCHC (31.0-35.0) g/dl RDW (11.0-16.0) % Plt Count (160-400) X10*3/uL MPV (9.4-12.3) fL Immature Gran % (Auto) (0.0-0.4) % Neut % (Auto) (45-73) % Lymph % (Auto) (20-40) % Travis % (Auto) (2-11) % Eos % (Auto) (0-4) % Baso % (Auto) (0-2) % Lymph # (Auto) (1.2-4.9) X10*3/uL [place] # (Auto) (0.1-1.2) X10*3/uL Eos # (Auto) (0.0-0.4) X10*3/uL Baso # (Auto) (0.0-0.2) X10*3/uL Abs Immat Gran (auto) (0.00-0.03) X10*3/uL Absolute Neuts (auto) (2.0-8.3) x10*3/uL Absolute Nucleated RBC (0.0-0.012) X10*3/uL Nucleated RBC % (auto) (0.0-0.2) /100WBC Sodium (135-145) mmol/L Potassium (3.3-5.1) mmol/L Chloride (96-108) mmol/L Carbon Dioxide (22-29) mmol/L Anion Gap (12-20) BUN (9-16) mg/dL Creatinine (0.5-1.4) mg/dL Estim Creat Clear Calc Estimated GFR Random Glucose (60-115) mg/dL Lactic Acid (0.5-2.0) mmol/L Calcium (8.4-10.2) mg/dL Magnesium (1.6-2.6) mg/dL Total Bilirubin (0.0-1.0) mg/dL AST (5-31) U/L ALT (0-31) U/L Alkaline Phosphatase (39-117) U/L Total Creatine Kinase (26-140) U/L Total Protein (6.5-8.0) g/dL Albumin (3.5-5.0) g/dL Urine Color Dark Yellow Urine Appearance Cloudy Urine pH 5.5 (5.0-9.0) Ur Specific [place] 1.025 (1.005-1.025) Urine Protein Trace (Neg-Trace) mg/dL Urine Glucose (UA) Negative (Negative) mg/dL Urine Ketones Trace (Negative) mg/dL Urine Blood Trace H (Negative) Urine Nitrite Positive H (Negative) Ur Leukocyte Esterase Moderate (2+) H (Negative) Urine RBC >20 H (0-2) /HPF Urine WBC >50 H (0-5) /HPF Ur Squamous Epith Cells 3-5 (0-2) /HPF Calcium Oxalate Crystal Present Urine Bacteria 2+ (None Seen) Hyaline Casts 3-5 (0-2) /LPF Urine Opiates Screen (Not Detect) Urine Fentanyl Screen (Not Detect) Ur Barbiturates Screen (Not Detect) Ur Phencyclidine Scrn (Not Detect) Ur Amphetamines Screen (Not Detect) U Benzodiazepines Scrn (Not Detect) Urine Cocaine Screen (Not Detect) U Marijuana (THC) Screen (Not Detect) Ethyl Alcohol < 10 mg/dL COVID-19 (ALESSANDRA) Negative (Negative) COVID-19 Clin Com See Note 02/10/22 02/11/22 Range/Units 23:27 02:44 WBC (4.8-10.8) X10*3/uL RBC (4.20-5.50) X10*6/uL Hgb (12.0-16.0) g/dl Hct (37.0-47.0) % MCV (80.0-98.0) fL MCH (27.0-33.0) pg MCHC (31.0-35.0) g/dl RDW (11.0-16.0) % Plt Count (160-400) X10*3/uL MPV (9.4-12.3) fL Immature Gran % (Auto) (0.0-0.4) % Neut % (Auto) (45-73) % Lymph % (Auto) (20-40) % Travis % (Auto) (2-11) % Eos % (Auto) (0-4) % Baso % (Auto) (0-2) % Lymph # (Auto) (1.2-4.9) X10*3/uL [place] # (Auto) (0.1-1.2) X10*3/uL Eos # (Auto) (0.0-0.4) X10*3/uL Baso # (Auto) (0.0-0.2) X10*3/uL Abs Immat Gran (auto) (0.00-0.03) X10*3/uL Absolute Neuts (auto) (2.0-8.3) x10*3/uL Absolute Nucleated RBC (0.0-0.012) X10*3/uL Nucleated RBC % (auto) (0.0-0.2) /100WBC Sodium (135-145) mmol/L Potassium (3.3-5.1) mmol/L Chloride (96-108) mmol/L Carbon Dioxide (22-29) mmol/L Anion Gap (12-20) BUN (9-16) mg/dL Creatinine (0.5-1.4) mg/dL Estim Creat Clear Calc Estimated GFR Random Glucose (60-115) mg/dL Lactic Acid 1.1 (0.5-2.0) mmol/L Calcium (8.4-10.2) mg/dL Magnesium (1.6-2.6) mg/dL Total Bilirubin (0.0-1.0) mg/dL AST (5-31) U/L ALT (0-31) U/L Alkaline Phosphatase (39-117) U/L Total Creatine Kinase (26-140) U/L Total Protein (6.5-8.0) g/dL Albumin (3.5-5.0) g/dL Urine Color Urine Appearance Urine pH (5.0-9.0) Ur Specific [place] (1.005-1.025) Urine Protein (Neg-Trace) mg/dL Urine Glucose (UA) (Negative) mg/dL Urine Ketones (Negative) mg/dL Urine Blood (Negative) Urine Nitrite (Negative) Ur Leukocyte Esterase (Negative) Urine RBC (0-2) /HPF Urine WBC (0-5) /HPF Ur Squamous Epith Cells (0-2) /HPF Calcium Oxalate Crystal Urine Bacteria (None Seen) Hyaline Casts (0-2) /LPF Urine Opiates Screen Not Detected (Not Detect) Urine Fentanyl Screen Not Detected (Not Detect) Ur Barbiturates Screen Not Detected (Not Detect) Ur Phencyclidine Scrn Not Detected (Not Detect) Ur Amphetamines Screen Not Detected (Not Detect) U Benzodiazepines Scrn POSITIVE H (Not Detect) Urine Cocaine Screen Not Detected (Not Detect) U Marijuana (THC) Screen Not Detected (Not Detect) Ethyl Alcohol mg/dL COVID-19 (LAESSANDRA) (Negative) COVID-19 Clin Com <DONTA Maynard - Last Filed: 02/11/22 09:49> ECG Data Attestation: I personally reviewed and interpreted this ECG as follows: <Tim Perla MD - Last Filed: 02/11/22 06:24> Interpretation: 0608: Normal sinus rhythm rate of 93, normal ID interval, QRS duration QTC interval, no ST segment elevation, no ST segment depression, normal T-waves, no Q-waves, no PACs, no PVCs, this is a normal EKG. <Tim Perla MD - Last Filed: 02/11/22 06:24> Critical Care Time Critical Care Time Critical Care Time: No <DONTA Rainey - Last Filed: 02/11/22 02:50> Discharge Plan Discharge Clinical Impression: Physical deconditioning, Weakness, Urinary tract infection <DONTA Rainey Last Filed: 02/11/22 02:50> Patient Disposition: Admitted As Inpatient <DONTA Rainey - Last Filed: 02/11/22 02:50> Additional Instructions: Take your medications as prescribed. If you were prescribed antibiotics today, it is important that you take your medication to their entirety, do not skip any doses, do not finish them early. Follow-up with your primary care provider this week. Return to the emergency department with new or worsening symptoms. Such as fevers, chills, chest pain, shortness of breath, nausea, vomiting, dizziness, headache, vision changes, lethargy In case of emergency call 911 <DONTA Rainey - Last Filed: 02/11/22 02:50>
--- NOTE | 2022-02-10 21:58 | PC.NURSE ---
Patient is declining IV/Labs/Covid swab at this time. Loni wilson.
[2022-02-10 22:32] LABS: MANUAL DIFF FLAG NO
[2022-02-10 22:36] LABS: Basophils Percent Auto 0.5 % (0-2); Eosinophils Absolute Auto 0.1 X10*3/uL (0.0-0.4); Eosinophils Percent Auto 1.6 % (0-4); Hematocrit 44.7 % (37.0-47.0); Hemoglobin 14.6 g/dl (12.0-16.0); Imm Gran Abs Auto 0.06 X10*3/uL (0.00-0.03); Imm Gran Pct Auto 0.8 % (0.0-0.4); Lymphocytes Absolute Auto 0.7 X10*3/uL (1.2-4.9); Lymphocytes Percent Auto 9.1 % (20-40); Mean Corpuscular HGB Conc 32.7 g/dl (31.0-35.0); Mean Corpuscular Hemoglobin 30.5 pg (27.0-33.0); Mean Corpuscular Volume 93.5 fL (80.0-98.0); Mean Platelet Volume 9.3 fL (9.4-12.3); Monocytes Absolute Auto 0.7 X10*3/uL (0.1-1.2); Monocytes Percent Auto 8.8 % (2-11); Neutrophils Absolute Auto 5.9 x10*3/uL (2.0-8.3); Neutrophils Percent Auto 79.2 % (45-73); Platelet Count 336 X10*3/uL (160-400); Red Blood Count 4.78 X10*6/uL (4.20-5.50); Red Cell Distribution Width 14.2 % (11.0-16.0); White Blood Count 7.4 X10*3/uL (4.8-10.8)
[2022-02-10 22:52] LABS: Ethanol < 10 mg/dL
[2022-02-10 23:06] LABS: Alanine Aminotransferase 17 U/L (0-31); Albumin Level 3.9 g/dL (3.5-5.0); Alkaline Phosphatase 104 U/L (39-117); Anion Gap 15 (12-20); Aspartate Amino Transferase 15 U/L (5-31); Bilirubin Total < 0.2 mg/dL (0.0-1.0); Blood Urea Nitrogen 8 mg/dL (9-16); Calcium 9.4 mg/dL (8.4-10.2); Carbon Dioxide 30 mmol/L (22-29); Chloride 100 mmol/L (96-108); Creatinine Clr Calc Pharmacy 75.9; Estimated Glomerular Filt Rate > 60; Glucose Random 115 mg/dL (60-115); Magnesium 2.1 mg/dL (1.6-2.6); Potassium 4.2 mmol/L (3.3-5.1); Sodium 141 mmol/L (135-145); Total Protein 6.9 g/dL (6.5-8.0)
[2022-02-10 23:11] LABS: COVID-19 Test Invalid (Negative)
[2022-02-10 23:53] LABS: COVID-19 Test Negative (Negative)
[2022-02-11] VITALS (7 sets, daily range): BP systolic 112–133; BP diastolic 62–79; PULSE 82–101; RESP 16–20; TEMP 36.6–36.8; O2SAT 94–100
[2022-02-11 00:06] LABS: Appearance Urine Cloudy; Color Urine Dark Yellow; Glucose Urine UA Negative (Negative); Leukocyte Esterase Urine Moderate (2+) (Negative); Nitrite Urine Positive (Negative); PH 5.5 (5.0-9.0); Specific Gravity - Urine 1.025 (1.005-1.025); Urine Blood Trace (Negative); Urine Ketones Trace mg/dL (Negative); Urine Protein Trace mg/dL (Neg-Trace)
[2022-02-11 00:16] LABS: Amphetamine Screen Urine Not Detected (Not Detect); Barbiturates, Urine Not Detected (Not Detect); Benzodiazepines Screen Urine POSITIVE (Not Detect); Cannabinoid Screen Urine Not Detected (Not Detect); Cocaine Screen Urine Not Detected (Not Detect); Fentanyl, urine Not Detected (Not Detect); Opiate Screen Urine Not Detected (Not Detect); Phencyclidine Screen Urine Not Detected (Not Detect)
[2022-02-11 00:55] LABS: Bacteria Urine 2+ (None Seen); Calcium Oxalate Crystals Urine Present; RBC Urine >20 /HPF (0-2); UACC Culture Trigger YES; WBC Urine >50 /HPF (0-5)
--- NOTE | 2022-02-11 01:44 | ECG_ITS ---
Test Reason : WEAKNESS Blood Pressure : / mmHG Vent. Rate : 093 BPM Atrial Rate : 093 BPM P-R Int : 134 ms QRS Dur : 072 ms QT Int : 352 ms P-R-T Axes : 073 049 092 degrees QTc Int : 437 ms Normal sinus rhythm Normal ECG When compared with ECG of 06-JAN-2022 23:40, No significant change was found Referred By: Crista Urbina Electronically Signed By:SEAN MENDEZ
--- NOTE | 2022-02-11 02:10 | PC.NURSE ---
Patient declining to have her dumas changed. She states that since the plastic securing device was removed it feels much better. Patient educated on her POC r/t having a UTI and a chronic catheter. Patient continues to decline. MD wilson
[2022-02-11] MEDS: 0.9 % Sodium Chloride 1,000 ML 999 ML IV (02:45)
--- NOTE | 2022-02-11 03:15 | PC.NURSE ---
Patient sleeping soundly. Brief 3-4second apnea pauses. Oxygen drops to 85% then patient rebounds back to 97% ??sleep apnea.
[2022-02-11 03:35] LABS: Lactic Acid 1.1 mmol/L (0.5-2.0)
--- NOTE | 2022-02-11 07:16 | PHA.MEDREC ---
Addendum entered by Alicia Thomas RPh 02/11/22 13:48: Contacted [facility] for medication list. Alicia Thomas PharmD Original Note: Pharmacy Consult ? Medication Reconciliation Pharmacy has completed the medication reconciliation. Reviewed med rec done by nursing
--- NOTE | 2022-02-11 09:15 | PC.NURSE ---
Pt agreeable to admission after speaking to Maida LONGO for UTI treatment.
--- NOTE | 2022-02-11 13:03 | P.HPHOSP_ITS ---
History of Present Illness Date of Service: 02/11/22 Attending physician on admission: Alice Delarosa Chief Complaint: UTI, failure to thrive 61 year old female with history non insulin dependent type 2 diabetes, copd, multiple sclerosis, neurogenic bladder with chronic dumas catheter and recurrent UTI, left sided adama paresis and is wc bound, chronic lacunar infarction noted on head ct, hsitory NSTEMI, htn, psoriasis, and hld who called EMS yesterday morning due to fecal incontinence and inability to make it to her commode due to her weakness, but states the weakness has not worsened. States this is an isolated incident. Also feels vulvar irritation for last few days and feels dumas may be out of place. Has VNA in the home weekly for dumas management. Lives at home with her who helps care with increased need for assistance for her but he recently had a stroke and struggling to help take care of her. Arrived to the ED covered in feces requiring 2 nurse assist to bathe her due to her weakness. In ED, dumas was replaced. UA with probable UTI with 2+ leuks and nitrite positive, urine culture pending. Hisorically has multiple cultures growing pseudomonas as well as e.coli. Denies fevers, chills, hematuria, changes in urine odor or color. Denies recent falls. CPK 40. No leukocytosis. Afebrile, vitals stable. Renal function and electrolytes normal. Head CT showing chronic lacunar infarct unclear age which patient was unaware of, no acute abnormality. Utox positive for benzons- on diazepam for her MS. Review of Systems Review of Systems: General: No fevers, malaise, unintentional weight loss HEENT: No blurred vision, diplopia Cardiovascular: No chest pain, palpitations, or leg edema Respiratory: No shortness of breath, wheezing, cough GI: No abdominal pain, nausea, vomiting, diarrhea, constipation, melena, hematochezia : +irritation urethral meatus. No change in urine color or odor MSK: No pain Neuro: +left sided weakness. No headaches, paresthesias Skin: +psoriasis, +rash under breasts [facility] Medical History Bacteriuria COPD (chronic obstructive pulmonary disease) Diabetes Femoral distal fracture Fracture of left tibial plateau Frequent falls Gram-positive cocci bacteremia Hemiparesis of left nondominant side Hyperlipidemia Hypertension Left hemiparesis Left humeral fracture Multiple sclerosis Multiple sclerosis NSTEMI (non-ST elevated myocardial infarction) Physical deconditioning Polysubstance abuse Pyuria Seizure disorder UTI (urinary tract infection) Weakness Family History Other Adopted Surgical History No pertinent past surgical history Social History Household Members: Unknown / Unable to assess Housing: Unknown / Unable to assess Alcohol intake: never Patient Tobacco Use Status: Never used Tobacco Tobacco use type: Cigarette Cigarette Packs Per Day: 0.5 Cigarettes Per Day: 10.0 Use of substances other than those prescribed or required for medical reasons: No Substance Use Type: Opiates Advance Directives: Yes Advance Directives on File: Yes Advance Directives Date on File: 04/10/20 service: No Current occupational status: [email or web address] Allergies Allergy/AdvReac Type Severity Reaction Status Date / Time No Known Allergies Allergy Verified 04/18/20 09:07 Active Medications: Current Medications Pharmacy Consult (Consult Rx Perform Med Rec) 1 each MISCELLANE ONCE PRN PRN Reason: Consult order Home Medications Medication Instructions Recorded Confirmed Last Taken Type aspirin 81 mg chewable tablet 81 mg PO DAILY 02/11/22 02/11/22 Unknown History baclofen 20 mg tablet 20 mg PO BEDTIME 02/11/22 02/11/22 Unknown History baclofen 20 mg tablet 20 mg PO QID 02/11/22 02/11/22 Unknown History carisoprodol 350 mg tablet 350 mg PO TID PRN Muscle Spasm 02/11/22 02/11/22 Unknown History diazepam 10 mg tablet 10 mg PO BEDTIME 02/11/22 02/11/22 Unknown History simvastatin 40 mg tablet 40 mg PO BEDTIME 02/11/22 02/11/22 Unknown History zolpidem 10 mg tablet 10 mg PO BEDTIME 02/11/22 02/11/22 Unknown History Physical Exam Vital Signs and Narrative: Vital Signs: Last Vital Signs Temp 97.9 F 02/11/22 07:46 Pulse 82 02/11/22 07:46 Resp 20 02/11/22 07:46 BP 112/62 02/11/22 07:46 Pulse Ox 98 02/11/22 07:46 O2 Del Method 02/11/22 07:46 O2 Flow Rate 3 02/11/22 07:46 BMI result Body Mass Index 24.7 Constitutional - Awake and Alert, No apparent distress Eyes - PERRLA, EOMI Cardiovascular - S1S2, RRR, No edema Respiratory - Normal lung expansion, Normal respiratory effort, No respiratory distress, CTA bilaterally Gastrointestinal - NT / ND; +BS; No rebound or guarding - Dumas catheter in place drainging dark yellow/orange urine Extremities - no calf tenderness bilaterally, no swelling Skin - Warm/Dry Neurological - Alert & oriented x3, CN II-XII in tact, 2/5 strength left upper and lower extremitiy, 4/5 strength right upper and lower extrem Psychological - Appropriate affect Results Labs CBC and Chem 7: 02/10/22 22:26 02/10/22 22:26 Labs: Laboratory Results - last 24 hr 02/10/22 02/10/22 02/10/22 22:26 22:26 22:26 MCV 93.5 MCH 30.5 MCHC 32.7 RDW 14.2 Plt Count 336 MPV 9.3 L Immature Gran % (Auto) 0.8 H Neut % (Auto) 79.2 H Lymph % (Auto) 9.1 L [place] % (Auto) 8.8 Eos % (Auto) 1.6 Baso % (Auto) 0.5 Lymph # (Auto) 0.7 L [place] # (Auto) 0.7 Eos # (Auto) 0.1 Baso # (Auto) 0.0 Abs Immat Gran (auto) 0.06 H Absolute Neuts (auto) 5.9 Absolute Nucleated RBC 0.000 Nucleated RBC % (auto) 0.0 Anion Gap 15 Estim Creat Clear Calc 75.9 Estimated GFR > 60 Random Glucose 115 Lactic Acid Calcium 9.4 D Magnesium 2.1 Total Bilirubin < 0.2 AST 15 ALT 17 Alkaline Phosphatase 104 Total Creatine Kinase 40 D Total Protein 6.9 Albumin 3.9 Urine Color Urine Appearance Urine pH Ur Specific [place] Urine Protein Urine Glucose (UA) Urine Ketones Urine Blood Urine Nitrite Ur Leukocyte Esterase Urine RBC Urine WBC Ur Squamous Epith Cells Calcium Oxalate Crystal Urine Bacteria Hyaline Casts Urine Opiates Screen Urine Fentanyl Screen Ur Barbiturates Screen Ur Phencyclidine Scrn Ur Amphetamines Screen U Benzodiazepines Scrn Urine Cocaine Screen U Marijuana (THC) Screen Ethyl Alcohol COVID-19 (ALESSANDRA) Invalid COVID-19 Clin Com See Note 02/10/22 02/10/22 02/10/22 22:26 23:19 23:27 MCV MCH MCHC RDW Plt Count MPV Immature Gran % (Auto) Neut % (Auto) Lymph % (Auto) [place] % (Auto) Eos % (Auto) Baso % (Auto) Lymph # (Auto) [place] # (Auto) Eos # (Auto) Baso # (Auto) Abs Immat Gran (auto) Absolute Neuts (auto) Absolute Nucleated RBC Nucleated RBC % (auto) Anion Gap Estim Creat Clear Calc Estimated GFR Random Glucose Lactic Acid Calcium Magnesium Total Bilirubin AST ALT Alkaline Phosphatase Total Creatine Kinase Total Protein Albumin Urine Color Dark Yellow Urine Appearance Cloudy Urine pH 5.5 Ur Specific [place] 1.025 Urine Protein Trace Urine Glucose (UA) Negative Urine Ketones Trace Urine Blood Trace H Urine Nitrite Positive H Ur Leukocyte Esterase Moderate (2+) H Urine RBC >20 H Urine WBC >50 H Ur Squamous Epith Cells 3-5 Calcium Oxalate Crystal Present Urine Bacteria 2+ Hyaline Casts 3-5 Urine Opiates Screen Urine Fentanyl Screen Ur Barbiturates Screen Ur Phencyclidine Scrn Ur Amphetamines Screen U Benzodiazepines Scrn Urine Cocaine Screen U Marijuana (THC) Screen Ethyl Alcohol < 10 COVID-19 (ALESSANDRA) Negative COVID-19 Clin Com See Note 02/10/22 02/11/22 23:27 02:44 MCV MCH MCHC RDW Plt Count MPV Immature Gran % (Auto) Neut % (Auto) Lymph % (Auto) [place] % (Auto) Eos % (Auto) Baso % (Auto) Lymph # (Auto) [place] # (Auto) Eos # (Auto) Baso # (Auto) Abs Immat Gran (auto) Absolute Neuts (auto) Absolute Nucleated RBC Nucleated RBC % (auto) Anion Gap Estim Creat Clear Calc Estimated GFR Random Glucose Lactic Acid 1.1 Calcium Magnesium Total Bilirubin AST ALT Alkaline Phosphatase Total Creatine Kinase Total Protein Albumin Urine Color Urine Appearance Urine pH Ur Specific [place] Urine Protein Urine Glucose (UA) Urine Ketones Urine Blood Urine Nitrite Ur Leukocyte Esterase Urine RBC Urine WBC Ur Squamous Epith Cells Calcium Oxalate Crystal Urine Bacteria Hyaline Casts Urine Opiates Screen Not Detected Urine Fentanyl Screen Not Detected Ur Barbiturates Screen Not Detected Ur Phencyclidine Scrn Not Detected Ur Amphetamines Screen Not Detected U Benzodiazepines Scrn POSITIVE H Urine Cocaine Screen Not Detected U Marijuana (THC) Screen Not Detected Ethyl Alcohol COVID-19 (ALESSANDRA) COVID-19 Clin Com Imaging Radiologist's Impressions: Impressions Head CT 02/11/22 02:10 IMPRESSION: No acute findings identified. Chronic changes as noted above. Assessment and Plan (1) Urinary tract infection: Status: Acute (2) Physical deconditioning: Status: Acute (3) Adult failure to thrive: Status: Acute Plan 61 year old female with history non insulin dependent type 2 diabetes, copd, multiple sclerosis, neurogenic bladder with chronic dumas catheter and recurrent UTI, left sided adama paresis and is wc bound, chronic lacunar infarction noted on head ct, hsitory NSTEMI, htn, psoriasis, and hld admitted for UTI and adult failure to thrive with physical deconditioning 1-UTI- hx recurrent UTI with cultures historically growing pseudomonas and e coli. Seen by ID 12/26 during adimssion for UTI/AMS who noted pseudomonas always present recommending d/c of the levaquin -UA with 2+leuks, nitrite positive. UC pending -IV zosyn for pseudomanas coverage until cultures back -Continue dumas with strict I&O 2-Adult failure to thrive with physical deconditioning -Chronic weakness L>R (secondary to MS and possibly lacunar infarct of indeterminate age and pt unaware of this dx seen on head CT). WC bound at baseline -Arrived to hospital covered in feces, unable to make it to commode for BM. -Nutrition and physical therapy consults placed -Pt lives with who recently suffered stroke. Unclear if he can continue assisting with her care. May require outpt placement or increased services 3-Multiple sclerosis- follows with [facility] -Chronic left sided weakness possibly secondary to MS and possiblely chronic lacunar infarct (age indeterminate and patient unaware of this hx) -Continue home diazepam and soma for spasm -Continue dumas for neurogenic bladder- Currently with 650ml dark yellow/orange urine 0-[id number] -monitor bps 5-Diet controlled Type 2 diabetes -POC glucose -SSI humalog 6-CAD/history NSTEMI- 05/2019 no anginal chest pain -Continue simvastatin and baby aspirin 7-COPD without exacerbation- stable 8-Psoriasis -Using OTC cream at home. Kenalog ordered daily 9-Intertriginous candidasis- breast b/l -Nystatin at home not helping -Clotrimazole bid DVT prophylaxis- lovenox Full code Pt requires inpt stay of at least 2 midnights for management of UTI with history of recurrent pseudomonas on UC requiring IV abx as well as failure to thrive requiring nutrition/pt and possible placement. Quality Stroke Does the patient have a stroke diagnosis?: No VTE Prior VTE?: No VTE Risk Level:: Medical - moderate - high VTE Device Contraindication: Treatment Not Indicated VTE Drug Contraindication: N/A - Med Ordered
[2022-02-11] MEDS: Enoxaparin Sodium 40 MG/0.4 ML SYRINGE SUBCUT (15:38)
[2022-02-11] MEDS: Piperacillin Sodium/Tazobactam 3.375 GM in 0.9 % Sodium Chloride 50 ML IV ×2 (15:38→20:39)
[2022-02-11] MEDS: Triamcinolone Acet 0.1 % Cream 15 GM TUBE 1 APPL TOPICAL (15:38)
--- NOTE | 2022-02-11 15:59 | PC.NURSE ---
Pt cleaned and repositioned x 2 this shift. cream applied to affected areas with psoriasis. Dumas care provided/patent, new dumas secure applied. Pt alert/oriented.
[2022-02-11] MEDS: Baclofen 20 MG TABLET PO ×3 (17:02→20:43)
[2022-02-11 17:09] LABS: Glucose, Whole Blood 103 mg/dL (60-115)
[2022-02-11] MEDS: Atorvastatin Calcium 20 MG TABLET PO (20:34)
[2022-02-11] MEDS: diazePAM 5 MG TABLET 10 MG PO (20:34)
[2022-02-11] MEDS: Zolpidem Tartrate 5 MG TABLET PO (20:35)
[2022-02-11] MEDS: Clotrimazole 1 % Cream 15 GM TUBE 1 APPL TOPICAL (20:35)
[2022-02-11 21:33] LABS: Glucose, Whole Blood 126 mg/dL (60-115)
[2022-02-12] VITALS: BP 115/58; PULSE 90; RESP 18; TEMP 36.5; O2SAT 94
--- NOTE | 2022-02-12 | PC.NURSE ---
Report received and care assumed at 2300, RN did arrive to overflow unit until 0000 due to report. Pt found to be resting comfortably in hospital bed with eyes closed, respirations even and unlabored without distress. Call silverio is in reach and RN will continue to monitor.
[2022-02-12] MEDS: Piperacillin Sodium/Tazobactam 3.375 GM in 0.9 % Sodium Chloride 50 ML IV ×4 (02:09→19:49)
[2022-02-12] MEDS: 0.9 % Sodium Chloride Flush 3 ML SYRINGE IVFLUSH ×3 (02:09→20:01)
[2022-02-12 07:28] VITALS: BP 132/65; PULSE 94; RESP 16; TEMP 36.4; O2SAT 97
[2022-02-12 07:50] LABS: Glucose, Whole Blood 113 mg/dL (60-115)
[2022-02-12 08:00] VITALS: BP 132/65; PULSE 94; RESP 16; TEMP 36.4; O2SAT 97
[2022-02-12] MEDS: Aspirin 81 MG TAB.CHEW PO (09:13)
[2022-02-12] MEDS: Clotrimazole 1 % Cream 15 GM TUBE 1 APPL TOPICAL ×2 (09:14→19:53)
[2022-02-12] MEDS: Baclofen 20 MG TABLET PO ×6 (09:14→20:01)
[2022-02-12] MEDS: carisoprodoL 350 MG TABLET PO ×2 (09:23→16:08)
[2022-02-12] MEDS: Triamcinolone Acet 0.1 % Cream 15 GM TUBE 1 APPL TOPICAL (10:56)
[2022-02-12] MEDS: Gabapentin 100 MG CAPSULE PO ×2 (10:57→20:01)
--- NOTE | 2022-02-12 11:13 | HO.PM.IMPN ---
Subjective Subjective Date of Service: 02/12/22 Interval History: the patient was seen and evaluated this morning Laying in bed, feels better overall Clear urine through the Dumas catheter Denies any fever, chills or shortness of breath No reported other overnight events. Systemic review: No fever, chills or weakness No chest pain, palpitation No shortness of breath or coughing No abdominal pain, improved nausea and diarrhea No urinary symptoms Left-sided weakness Psoriatic rash Physical Exam Vital Signs: Vital Signs: Last Vital Signs Temp 97.6 F 02/12/22 07:28 Pulse 94 02/12/22 07:28 Resp 16 02/12/22 07:28 BP 132/65 02/12/22 07:28 Pulse Ox 97 02/12/22 07:28 O2 Del Method 02/12/22 07:28 O2 Flow Rate 3 02/11/22 07:46 BMI result Body Mass Index 24.7 Const: Other: Constitutional : Alert, oriented, not in distress Neck : Normal inspection, Supple Cardiovascular : RRR, no JVP, no lower extremity edema Respiratory : fair bilateral air entry, no crackles, wheezes or rhonchi Gastrointestinal: soft, lax, Normal bowel sounds, Non tender Skin : Warm, Dry Neurological : Alert & oriented x3, CN 2-12 within normal, 2/5 strength left upper and lower extremities, normal to mildly decreased strength in the right side Objective Data Active Medications Acetaminophen (Acetaminophen Supp 650 Mg Supp.Rect) 650 mg WI Q6H PRN PRN Reason: Pain, Mild (Pain Scale 1-3) Aspirin (Aspirin 81 Mg Tab.Chew) 81 mg PO DAILY [facility] Last Admin: 02/12/22 09:13 Dose: 81 mg Documented By: FERNIE Atorvastatin Calcium (Atorvastatin Calcium 20 Mg Tablet) 20 mg PO BEDTIME [facility] Last Admin: 02/11/22 20:34 Dose: 20 mg Documented By: ANDREW Baclofen (Baclofen 20 Mg Tablet) 20 mg PO BEDTIME [facility] Last Admin: 02/12/22 09:14 Dose: 20 mg Documented By: FERNIE Baclofen (Baclofen 20 Mg Tablet) 20 mg PO QID [facility] Last Admin: 02/12/22 10:56 Dose: 20 mg Documented By: FERNIE Carisoprodol (Carisoprodol 350 Mg Tablet) 350 mg PO TID PRN PRN Reason: Muscle Spasm Last Admin: 02/12/22 09:23 Dose: 350 mg Documented By: FERNIE Clotrimazole (Clotrimazole 1 % Cream 15 Gm Tube) 1 appl TOPICAL BID [facility]; Protocol Last Admin: 02/12/22 09:14 Dose: 1 appl Documented By: FERNIE Diazepam (Diazepam 5 Mg Tablet) 10 mg PO BEDTIME [facility] Last Admin: 02/11/22 20:34 Dose: 10 mg Documented By: ANDREW Enoxaparin Sodium (Enoxaparin Sodium 40 Mg/0.4 Ml Syringe) 40 mg SUBCUT Q24H [facility] Last Admin: 02/11/22 15:38 Dose: 40 mg Documented By: PAT Gabapentin (Gabapentin 100 Mg Capsule) 100 mg PO BID [facility] Last Admin: 02/12/22 10:57 Dose: 100 mg Documented By: FERNIE Piperacillin Sod/Tazobactam (Sod 3.375 gm/ Sodium Chloride) 50 mls @ 100 mls/hr IV Q6H [facility] Last Infusion: 02/12/22 10:35 Dose: 0 mls/hr Documented By: FERNIE Insulin Human Lispro (Insulin Lispro 100 Unit/Ml 3 Ml Vial) 0 unit SUBCUT QIDACHS [facility]; Protocol Last Admin: 02/12/22 07:40 Dose: Not Given Documented By: FERNIE Non-Admin Reason: parameters not met Pharmacy Consult (Consult Rx Perform Med Rec) 1 each MISCELLANE ONCE PRN PRN Reason: Consult order Sodium Chloride (0.9 % Sodium Chloride Flush 3 Ml Syringe) 3 ml IVFLUSH QSHIFT [facility] Last Admin: 02/12/22 10:34 Dose: Not Given Documented By: FERNIE Non-Admin Reason: IV Running Triamcinolone Acetonide (Triamcinolone Acet 0.1 % Cream 15 Gm Tube) 1 appl TOPICAL DAILY [facility]; Protocol Last Admin: 02/12/22 10:56 Dose: 1 appl Documented By: FERNIE Zolpidem Tartrate (Zolpidem Tartrate 5 Mg Tablet) 5 mg PO BEDTIME [facility] Last Admin: 02/11/22 20:35 Dose: 5 mg Documented By: ANDREW Labs CBC & Chem 7: 02/10/22 22:26 02/10/22 22:26 Labs: Laboratory Results - last 24 hr 02/11/22 02/11/22 02/12/22 17:03 21:30 07:23 POC Glucose 103 126 H 113 Microbiology Microbiology Results: Microbiology 02/11/22 02:44 Urine Culture - Final Urine clean catch - Urine carcamo top 02/11/22 02:44 Blood Culture - Preliminary Blood - Venous No growth after 24 hours. 02/11/22 02:44 Blood Culture - Preliminary Blood - Venous No growth after 24 hours. Assessment and Plan (1) Physical deconditioning: Status: Acute (2) Urinary tract infection: Status: Acute Plan 61 year old female with history non insulin dependent type 2 diabetes, copd, multiple sclerosis, neurogenic bladder with chronic dumas catheter and recurrent UTI, left sided adama paresis and is wc bound, chronic lacunar infarction noted on head ct, hsitory NSTEMI, htn, psoriasis, and hld admitted for UTI and adult failure to thrive with physical deconditioning UTI secondary to chronic Dumas hx recurrent UTI with cultures historically growing pseudomonas and e coli. Pseudomonas considered: E by ID previously UC pending Continue IV zosyn pending final cultures Dumas changed Adult failure to thrive with physical deconditioning Chronic weakness L>R Nutrition following PT evaluated the patient, recommended VNA at home Multiple sclerosis. follows with [facility] Continue home baclofen, diazepam and soma for spasm Continue dumas for neurogenic bladder Type 2 diabetes Diet controlled POC glucose SSI humalog CAD Continue simvastatin and baby aspirin COPD without exacerbation Psoriasis Using OTC cream at home. Kenalog ordered daily Intertriginous candidasis breast b/l Continue Clotrimazole bid DVT prophylaxis lovenox Full code Patient will need overnight hospital stay for management of UTI with history of recurrent pseudomonas on UC requiring IV abx pending final cultures to prevent possible decompensation in to sepsis Quality Stroke Does the patient have a stroke diagnosis?: No VTE Prior VTE?: No VTE Risk Level:: Medical - moderate - high VTE Device Contraindication: Treatment Not Indicated VTE Drug Contraindication: N/A - Med Ordered
[2022-02-12] MEDS: Enoxaparin Sodium 40 MG/0.4 ML SYRINGE SUBCUT (13:23)
--- NOTE | 2022-02-12 15:16 | MHC.CM.PN ---
IMM ADDRESSED ORIGINAL TO PATIENT, YELLOW IN CHART PATIENT LIVES WITH SPOUSE USES WHEELCHAIR AT HOME RECEIVES SERVICES FROM [facility] AIDE X3 WEEKLY FOR 5 HOURS EACH VISIT. ALSO HAS [facility] X2 MRNA PCP: PRICILA DUNCAN HCP ON FILE AND VERIFIED BLS AMBULANCE TRANSPORTATION (ACTION) D/C PLAN: HOME RESUME SERVICES
[2022-02-12 15:41] VITALS: BP 128/60; PULSE 90; RESP 17; TEMP 36.4; O2SAT 96
[2022-02-12 15:52] LABS: Glucose, Whole Blood 128 mg/dL (60-115)
[2022-02-12] MEDS: diazePAM 5 MG TABLET 10 MG PO (20:00)
[2022-02-12] MEDS: Atorvastatin Calcium 20 MG TABLET PO (20:01)
[2022-02-12] MEDS: Zolpidem Tartrate 5 MG TABLET PO (20:01)
[2022-02-12 20:11] LABS: Glucose, Whole Blood 120 mg/dL (60-115)
--- NOTE | 2022-02-12 22:50 | W.PM.IDCN ---
History of Present Illness Data of Consult Service Date: 02/12/22 Requesting physician: Alice Delarosa Primary Care Provider: Pranav Su III, MD HPI Reason for consult: incontinence of stool She presents with fecal incontinence and weakness. She also had vaginal discomfort. She has no fever or chills or leukocytosis. She has Marshall catheter leaking. She has MS and left sided weakness. Review of Systems Review of Systems: Yes all other systems are reviewed and are negative PMFSH Past Medical History Medical History Bacteriuria COPD (chronic obstructive pulmonary disease) Diabetes Femoral distal fracture Fracture of left tibial plateau Frequent falls Gram-positive cocci bacteremia Hemiparesis of left nondominant side Hyperlipidemia Hypertension Left hemiparesis Left humeral fracture Multiple sclerosis Multiple sclerosis NSTEMI (non-ST elevated myocardial infarction) Physical deconditioning Polysubstance abuse Pyuria Seizure disorder UTI (urinary tract infection) UTI (urinary tract infection) UTI (urinary tract infection) Weakness Family History Family History Other Adopted Family history: reviewed and not pertinent Surgical History Surgical History No pertinent past surgical history Social History Social History Household Members: Spouse Housing: House Do you presently have visiting nurse or other home services: Yes Alcohol intake: never Patient Tobacco Use Status: Current everyday Tobacco user Tobacco use type: Cigarette Cigarette Packs Per Day: 0.5 Cigarettes Per Day: 1 Second Hand Smoke Exposure: No Substance Use Type: Opiates Advance Directives Date on File: 04/10/20 service: No Current occupational status: retired and disabled Meds Allergies Allergy/AdvReac Type Severity Reaction Status Date / Time No Known Allergies Allergy Verified 04/18/20 09:07 Active Medications: Current Medications Acetaminophen (Acetaminophen Supp 650 Mg Supp.Rect) 650 mg VT Q6H PRN PRN Reason: Pain, Mild (Pain Scale 1-3) Aspirin (Aspirin 81 Mg Tab.Chew) 81 mg PO DAILY ANN Last Admin: 02/12/22 09:13 Dose: 81 mg Atorvastatin Calcium (Atorvastatin Calcium 20 Mg Tablet) 20 mg PO BEDTIME ANN Last Admin: 02/12/22 20:01 Dose: 20 mg Baclofen (Baclofen 20 Mg Tablet) 20 mg PO BEDTIME [facility] Last Admin: 02/12/22 20:01 Dose: 20 mg Baclofen (Baclofen 20 Mg Tablet) 20 mg PO QID [facility] Last Admin: 02/12/22 20:01 Dose: 20 mg Carisoprodol (Carisoprodol 350 Mg Tablet) 350 mg PO TID PRN PRN Reason: Muscle Spasm Last Admin: 02/12/22 16:08 Dose: 350 mg Clotrimazole (Clotrimazole 1 % Cream 15 Gm Tube) 1 appl TOPICAL BID [facility]; Protocol Last Admin: 02/12/22 19:53 Dose: 1 appl Diazepam (Diazepam 5 Mg Tablet) 10 mg PO BEDTIME [facility] Last Admin: 02/12/22 20:00 Dose: 10 mg Enoxaparin Sodium (Enoxaparin Sodium 40 Mg/0.4 Ml Syringe) 40 mg SUBCUT Q24H [facility] Last Admin: 02/12/22 13:23 Dose: 40 mg Gabapentin (Gabapentin 100 Mg Capsule) 100 mg PO BID [facility] Last Admin: 02/12/22 20:01 Dose: 100 mg Piperacillin Sod/Tazobactam (Sod 3.375 gm/ Sodium Chloride) 50 mls @ 100 mls/hr IV Q6H [facility] Last Infusion: 02/12/22 20:54 Dose: Infused Insulin Human Lispro (Insulin Lispro 100 Unit/Ml 3 Ml Vial) 0 unit SUBCUT QIDACHS [facility]; Protocol Last Admin: 02/12/22 20:03 Dose: Not Given Pharmacy Consult (Consult Rx Perform Med Rec) 1 each MISCELLANE ONCE PRN PRN Reason: Consult order Sodium Chloride (0.9 % Sodium Chloride Flush 3 Ml Syringe) 3 ml IVFLUSH QSHIFT [facility] Last Admin: 02/12/22 20:01 Dose: 3 ml Triamcinolone Acetonide (Triamcinolone Acet 0.1 % Cream 15 Gm Tube) 1 appl TOPICAL DAILY [facility]; Protocol Last Admin: 02/12/22 10:56 Dose: 1 appl Zolpidem Tartrate (Zolpidem Tartrate 5 Mg Tablet) 5 mg PO BEDTIME [facility] Last Admin: 02/12/22 20:01 Dose: 5 mg Home Medications Medication Instructions Recorded Confirmed Last Taken Type aspirin 81 mg chewable tablet 81 mg PO DAILY 02/11/22 02/11/22 Unknown History baclofen 20 mg tablet 20 mg PO BEDTIME 02/11/22 02/11/22 Unknown History baclofen 20 mg tablet 20 mg PO QID 02/11/22 02/11/22 Unknown History carisoprodol 350 mg tablet 350 mg PO TID PRN Muscle Spasm 02/11/22 02/11/22 Unknown History diazepam 10 mg tablet 10 mg PO BEDTIME 02/11/22 02/11/22 Unknown History simvastatin 40 mg tablet 40 mg PO BEDTIME 02/11/22 02/11/22 Unknown History zolpidem 10 mg tablet 10 mg PO BEDTIME 02/11/22 02/11/22 Unknown History Physical Exam Vital Signs: Vital Signs: Last Vital Signs Temp 97.6 F 02/12/22 15:41 Pulse 90 02/12/22 15:41 Resp 17 02/12/22 15:41 BP 128/60 02/12/22 15:41 Pulse Ox 96 02/12/22 15:41 O2 Del Method 02/12/22 15:41 O2 Flow Rate 3 02/11/22 07:46 BMI result Body Mass Index 24.7 Const: General: cooperative HEENT: Head: Yes normal to inspection Face and sinus: Yes normal facial exam Mouth: Normal oral and palatal mucosa present Teeth and gingiva: dentition normal Eyes: General: appearance normal, both eyes and all related structures Pupils: Equal, round and reactive pupils present Resp: Effort & Inspection: normal respiratory effort Cardio: Rate: regular rate Rhythm: regular rhythm GI: Palpation (GI): Soft to palpation and nontender : General: Yes no CVA tenderness Back/Spine/Pelvis: Back: no CVA tenderness Skin: General skin exam: no rashes or lesions noted Neuro: Other: weakness left side chronically Cranial nerves: Yes Equal, round and reactive pupils present Extrem: General: Yes normal to inspection Psych: Appearance: grossly normal Results Labs CBC & Chem 7: 02/10/22 22:26 02/10/22 22:26 Microbiology Microbiology Results: Microbiology 02/11/22 02:44 Urine clean catch - Urine carcamo top Urine Culture - Final 02/11/22 02:44 Blood - Venous Blood Culture - Preliminary No growth after 24 hours. 02/11/22 02:44 Blood - Venous Blood Culture - Preliminary No growth after 24 hours. Assessment and Plan (1) Physical deconditioning: Status: Acute (2) Weakness: Status: Acute (3) Multiple sclerosis: Status: Acute (4) Urinary retention: Status: Acute She has had concerns with Marshall position and vaginal discomfort. She has no fever or chills or signs of UTI in general. Cultures show multiple organisms. Plan Would stop antibiotics tomorrow if no WBC elevation,fever or other signs of infection (she is on Zosyn now)
[2022-02-12 23:51] VITALS: BP 103/53; PULSE 78; RESP 18; TEMP 36.1; O2SAT 98
[2022-02-13] MEDS: Piperacillin Sodium/Tazobactam 3.375 GM in 0.9 % Sodium Chloride 50 ML IV (01:35)
[2022-02-13] MEDS: carisoprodoL 350 MG TABLET PO ×2 (05:59→13:59)
[2022-02-13 07:17] VITALS: BP 129/62; PULSE 83; RESP 18; TEMP 36.8; O2SAT 96
[2022-02-13 07:22] LABS: Glucose, Whole Blood 126 mg/dL (60-115)
[2022-02-13] MEDS: Baclofen 20 MG TABLET PO ×3 (09:24→20:44)
[2022-02-13] MEDS: Gabapentin 100 MG CAPSULE PO ×2 (09:24→20:45)
[2022-02-13] MEDS: Aspirin 81 MG TAB.CHEW PO (09:24)
[2022-02-13] MEDS: Clotrimazole 1 % Cream 15 GM TUBE 1 APPL TOPICAL ×2 (09:25→20:48)
[2022-02-13] MEDS: Triamcinolone Acet 0.1 % Cream 15 GM TUBE 1 APPL TOPICAL (09:25)
[2022-02-13] MEDS: 0.9 % Sodium Chloride Flush 3 ML SYRINGE IVFLUSH (09:25)
--- NOTE | 2022-02-13 10:00 | MHC.CM.PN ---
PATIENT IS RETURNING HOME TODAY WITH RESUMPTION OF SERVICES ALREADY IN PLACE. SHE WILL NEED [facility]. PATIENT CALLED HER SPOUSE TO INFORM
[2022-02-13 11:04] VITALS: BP 110/59; PULSE 80; RESP 18; TEMP 36.4
[2022-02-13 11:09] LABS: Glucose, Whole Blood 145 mg/dL (60-115)
--- NOTE | 2022-02-13 12:06 | PM.DS ---
DS: Providers Provider Date of Service: 02/13/22 Date of admission: 02/11/22 13:08 Primary care physician: Pranav Su III, MD Consults: 02/11/22 01:58 Consult to Infectious Diseases Routine Consulting Provider: Glendy Booth Reason for consultation: UTI recurrent DS: Diagnosis Discharge Diagnosis (1) Physical deconditioning: Status: Acute (2) Weakness: Status: Acute (3) Multiple sclerosis: Status: Acute (4) Urinary retention: Status: Acute (5) Intertriginous candidiasis: Status: Acute DS: Summary Hospital Course Hospital Course: Admission note HPI 61 year old female with history non insulin dependent type 2 diabetes, copd, multiple sclerosis, neurogenic bladder with chronic dumas catheter and recurrent UTI, left sided adama paresis and is wc bound, chronic lacunar infarction noted on head ct, hsitory NSTEMI, htn, psoriasis, and hld who called EMS yesterday morning due to fecal incontinence and inability to make it to her commode due to her weakness, but states the weakness has not worsened. States this is an isolated incident. Also feels vulvar irritation for last few days and feels dumas may be out of place. Has [facility] in the home weekly for dumas management. Lives at home with her who helps care with increased need for assistance for her but he recently had a stroke and struggling to help take care of her. Arrived to the ED covered in feces requiring 2 nurse assist to bathe her due to her weakness. In ED, dumas was replaced. UA with probable UTI with 2+ leuks and nitrite positive, urine culture pending. Hisorically has multiple cultures growing pseudomonas as well as e.coli. Denies fevers, chills, hematuria, changes in urine odor or color. Denies recent falls. CPK 40. No leukocytosis. Afebrile, vitals stable. Renal function and electrolytes normal. Head CT showing chronic lacunar infarct unclear age which patient was unaware of, no acute abnormality. Utox positive for benzons- on diazepam for her MS. Hospital course The patient was admitted for evaluation of increased weakness. Urinalysis was suspicious for possible urine infection with elevated nitrate and WBCs. Started on IV antibiotics of Zosyn given history of Pseudomonas infection in the urine. Final urine culture came back as mixed bacteria with no specific growth. Evaluated by infectious disease specialist who recommended to discontinue antibiotics as no infection there but Likely colonies.Dumas catheter was changed. Patient was evaluated by Physical therapy who recommended more therapy at home with VNA as the patient general condition is deconditioning. Started on clotrimazole cream for Intertriginous candidasis. No antibiotics needed at time of discharge per ID. Time Spent with Patient Time attestation: Total time spent providing and/or coordinating discharge services: Discharge coordination time: Greater than 30 minutes Quality: Safe Use of Opioids Does Pt have an Active Cancer Diagnosis on the Problem List?: No Quality: Stroke Does the patient have a stroke diagnosis?: No Physical Exam Vital Signs: Vital Signs: Last Vital Signs Temp 97.6 F 02/13/22 11:04 Pulse 80 02/13/22 11:04 Resp 18 02/13/22 11:04 BP 110/59 L 02/13/22 11:04 Pulse Ox 96 02/13/22 07:17 O2 Del Method 02/13/22 07:17 O2 Flow Rate 3 02/11/22 07:46 BMI result Body Mass Index 24.7 Const: Other: Constitutional : Alert, oriented, not in distress Neck : Normal inspection, Supple Cardiovascular : RRR, no JVP, no lower extremity edema Respiratory : fair bilateral air entry, no crackles, wheezes or rhonchi Gastrointestinal: soft, lax, Normal bowel sounds, Non tender Skin : Warm, Dry Neurological : Alert & oriented x3, CN 2-12 within normal, 2/5 strength left upper and lower extremities, normal to mildly decreased strength in the right side DS: Data Data Completed and Pending Completed studies during hospitalization [Text1]: Procedures Insertion of Infusion Device into Right Cephalic Vein, Percutaneous Approach (07/13/21) Labs on day of discharge: Laboratory Results - last 24 hr 02/12/22 02/12/22 02/13/22 15:46 19:56 07:15 POC Glucose 128 H 120 H 126 H 02/13/22 11:00 POC Glucose 145 H Preliminary micro results at discharge 02/11/22 02:44 Blood Culture - Preliminary Blood - Venous No growth after 48 hours. 02/11/22 02:44 Blood Culture - Preliminary Blood - Venous No growth after [address] scan - head: Radiologist's impression: ITS Impressions Head CT 02/11/22 02:10 IMPRESSION: No acute findings identified. Chronic changes as noted above. Discharge Plan Discharge Patient Disposition: Home Health Service Discharge Diagnosis: Physical deconditioning Referrals: Colby Goetz MD [Physician] - 1 week Pranav Su III, MD [Primary Care Provider] - 1 Week Physician,José Manuel J [Physician] - 2 days Discharge Medications: New clotrimazole 1 % Cream 1 appl topical BID 7 Days Qty: 30 1RF Protocol: Apply to: Apply to: under b/l breasts Continued carisoprodol 350 mg Tablet 350 mg PO TID PRN (Reason: Muscle Spasm) simvastatin 40 mg Tablet 40 mg PO BEDTIME baclofen 20 mg Tablet 20 mg PO QID baclofen 20 mg Tablet 20 mg PO BEDTIME aspirin 81 mg Tablet,Chewable 81 mg PO DAILY diazepam 10 mg Tablet 10 mg PO BEDTIME zolpidem 10 mg Tablet 10 mg PO BEDTIME Discharge Orders: Discharge Order (Routine); Ordered 02/13/22 Ordered By: Alice Delarosa Diet: Advance to usual diet Activity on Discharge: As tolerated Stand Alone Forms: Patient Portal Discharge page Activity Restrictions/Additional Instructions: Take your medications as prescribed. If you were prescribed antibiotics today, it is important that you take your medication to their entirety, do not skip any doses, do not finish them early. Follow-up with your primary care provider this week. Return to the emergency department with new or worsening symptoms. Such as fevers, chills, chest pain, shortness of breath, nausea, vomiting, dizziness, headache, vision changes, lethargy In case of emergency call 911 Care Plan Goals: Read below Health Concerns: Read below Plan of Treatment: Read below Assessment: You were admitted for evaluation of weakness. Thought to be a result of urine infection as your treated with IV antibiotics but urine culture came back negative. Evaluated by infectious disease specialist who recommended to stop antibiotics. Dumas catheter was changed during the hospital stay. Seen by physical therapy team who recommended more therapy at home. To be followed with VNA. Patient Instructions: Urinary Tract Infection in Women (ED), Weakness (ED)
--- NOTE | 2022-02-13 14:30 | MHC.CM.PN ---
BLS booked for 7PM to home
[2022-02-13 15:38] VITALS: BP 133/64; PULSE 85; RESP 19; TEMP 36.6; O2SAT 97
[2022-02-13 15:51] LABS: Glucose, Whole Blood 104 mg/dL (60-115)
--- NOTE | 2022-02-13 16:02 | MHC.CM.PN ---
Addendum entered by Pastora Chan 02/13/22 16:05: [facility] SAYS PATIENT IS NOT ACTIVE WITH THEM ANY LONGER Original Note: PATIENT IS DISCHARGED HOME WITH RESUMPTION OF HER [facility] SERVICES.
[2022-02-13 16:51] LABS: Glucose, Whole Blood 99 mg/dL (60-115)
[2022-02-13 20:15] VITALS: BP 124/59; PULSE 82; RESP 17; TEMP 36.4; O2SAT 96
[2022-02-13] MEDS: diazePAM 5 MG TABLET 10 MG PO (20:44)
[2022-02-13] MEDS: Zolpidem Tartrate 5 MG TABLET PO (20:45)
[2022-02-13] MEDS: Atorvastatin Calcium 20 MG TABLET PO (20:45)
== END 2022-02-13 21:40 | disposition home health service (06) | DRG 60 ==
LOC: HO.ED 02-11 02:02 → HO.EDOVER 02-11 13:21 → HO.S3 02-12 14:14
PROVIDERS: Physician Assistant; Admitting Provider Physician Assistant; Emergency Provider Emergency Medicine; PCP Internal Medicine; Visit Provider Student in an Organized Health Care Education/Training Program
DX: G35 Multiple sclerosis (principal); B37.2 Candidiasis of skin and nail; G81.94 Hemiplegia, unspecified affecting left nondominant side; G40.909 Epilepsy, unspecified, not intractable, without status epilepticus; N31.9 Neuromuscular dysfunction of bladder, unspecified; I10 Essential (primary) hypertension; E11.9 Type 2 diabetes mellitus without complications; R62.7 Adult failure to thrive; I25.10 Atherosclerotic heart disease of native coronary artery without angina pectoris; J44.9 Chronic obstructive pulmonary disease, unspecified; Z68.24 Body mass index [BMI] 24.0-24.9, adult; F17.210 Nicotine dependence, cigarettes, uncomplicated; R53.81 Other malaise; Z20.822 Contact with and (suspected) exposure to COVID-19; Z99.3 Dependence on wheelchair; Z71.6 Tobacco abuse counseling; Z87.440 Personal history of urinary (tract) infections; Z79.82 Long term (current) use of aspirin; Z79.899 Other long term (current) drug therapy
CPT/HCPCS: 36415; 70450; 80053; 80307; 81001; 82077; 82550; 82947; 83605; 83735; 85025; 87040; 87086; 87635; 93005; 97161; 99285; C1758; J1650; J2543

== ENCOUNTER 2022-02-20 13:07 | Emergency (ER) | payer MEDICARE, OTHER, SELFPAY ==
[2022-02-20 13:22] VITALS: BP 138/69; BP 140/80; PULSE 78; PULSE 85; RESP 20; TEMP 36.4; O2SAT 98; O2SAT 99; BMI 24.2
--- NOTE | 2022-02-20 13:43 | ED_ITS ---
HPI - Female Genitourinary General Chief complaint: Urogenital-Female Stated complaint: CATHETER PROBLEM Time Seen by Provider: 02/20/22 13:43 Source: patient Mode of arrival: ambulatory Limitations: no limitations History of Present Illness HPI Narrative: Patient history of multiple sclerosis left-sided weakness with urinary incontinence with chronic Marshall catheter for last 6 months comes here as Marshall catheter came out which needs to be replaced patient is from long-term Related Data Home Medications Medication Instructions Recorded Confirmed aspirin 81 mg chewable tablet 81 mg PO DAILY 02/11/22 02/11/22 baclofen 20 mg tablet 20 mg PO BEDTIME 02/11/22 02/11/22 baclofen 20 mg tablet 20 mg PO QID 02/11/22 02/11/22 carisoprodol 350 mg tablet 350 mg PO TID PRN Muscle Spasm 02/11/22 02/11/22 diazepam 10 mg tablet 10 mg PO BEDTIME 02/11/22 02/11/22 simvastatin 40 mg tablet 40 mg PO BEDTIME 02/11/22 02/11/22 zolpidem 10 mg tablet 10 mg PO BEDTIME 02/11/22 02/11/22 Previous Rx's Medication Instructions Recorded clotrimazole 1 % topical cream 1 appl topical BID 7 days #30 grams 02/13/22 nitrofurantoin 100 mg PO BID #20 caps 02/20/22 monohydrate/macrocrystals 100 mg capsule (Macrobid) Allergies Allergy/AdvReac Type Severity Reaction Status Date / Time No Known Allergies Allergy Verified 04/18/20 09:07 Review of Systems Review of Systems: Yes all other systems are reviewed and are negative PMFSH Past Medical History Medical History Bacteriuria COPD (chronic obstructive pulmonary disease) Diabetes Femoral distal fracture Fracture of left tibial plateau Frequent falls Gram-positive cocci bacteremia Hemiparesis of left nondominant side Hyperlipidemia Hypertension Left hemiparesis Left humeral fracture Multiple sclerosis Multiple sclerosis NSTEMI (non-ST elevated myocardial infarction) Physical deconditioning Polysubstance abuse Pyuria Seizure disorder UTI (urinary tract infection) UTI (urinary tract infection) UTI (urinary tract infection) Weakness Surgical History No pertinent past surgical history Family History Family History Other Adopted Social History Social History Household Members: Spouse Housing: House Do you presently have visiting nurse or other home services: Yes Alcohol intake: never Patient Tobacco Use Status: Current everyday Tobacco user Tobacco use type: Cigarette Cigarette Packs Per Day: 0.5 Cigarettes Per Day: 1 Second Hand Smoke Exposure: No Substance Use Type: Opiates Advance Directives: Yes Advance Directives on File: Yes Advance Directives Date on File: 04/10/20 service: No Current occupational status: retired and disabled Physical Exam Vital Signs: Vital Signs: Last Vital Signs Temp 97.6 F 02/20/22 13:22 Pulse 85 02/20/22 13:22 Resp 20 02/20/22 13:22 BP 138/69 02/20/22 13:22 Pulse Ox 99 02/20/22 13:22 O2 Del Method 02/20/22 13:22 BMI result Body Mass Index 24.2 Appearance: Alert. Oriented X3. No acute distress. Eyes: PERRLA, ENT: Pharynx normal. Oral Mucosa moist Neck: Normal inspection. Neck supple. CVS: Normal heart rate and rhythm. Pulses normal. Respiratory: No respiratory distress. Equal air entry bilateral, Abdomen: Soft and nontender. Bowel sounds are present, no mass palpable, Skin: Skin warm and dry. Normal skin color. Normal skin turgor. Extremities: No lower extremity edema. No calf tenderness Neuro: Oriented X 3. Left-sided hemiparesis MDM - Female Genitourinary Lab Data Attestation: I reviewed the patient's lab results. Labs: Lab Results 02/20/22 Range/Units 14:19 Urine Color Yellow Urine Appearance Clear Urine pH 6.0 (5.0-9.0) Ur Specific [place] <= 1.005 (1.005-1.025) Urine Protein Negative (Neg-Trace) mg/dL Urine Glucose (UA) Negative (Negative) mg/dL Urine Ketones Negative (Negative) mg/dL Urine Blood Negative (Negative) Urine Nitrite Positive H (Negative) Ur Leukocyte Esterase Large (3+) H (Negative) Urine RBC 0-2 (0-2) /HPF Urine WBC >50 H (0-5) /HPF Ur Squamous Epith Cells 0-2 (0-2) /HPF Urine Bacteria 4+ (None Seen) Hyaline Casts 0-2 (0-2) /LPF Discharge Plan Discharge Clinical Impression: Chronic indwelling Marshall catheter, UTI (urinary tract infection) Patient Disposition: Home, Self-Care Instructions: Catheter-associated Urinary Tract Infection (ED) Additional Instructions: Local care as advised Antibiotic as prescribed Follow with your PCP Prescriptions: New nitrofurantoin monohyd/m-cryst [Macrobid] 100 mg capsule 100 mg PO BID Qty: 20 0RF Rx Instructions: must administer with a meal/food No Action carisoprodol 350 mg Tablet 350 mg PO TID PRN (Reason: Muscle Spasm) simvastatin 40 mg Tablet 40 mg PO BEDTIME baclofen 20 mg Tablet 20 mg PO QID baclofen 20 mg Tablet 20 mg PO BEDTIME aspirin 81 mg Tablet,Chewable 81 mg PO DAILY diazepam 10 mg Tablet 10 mg PO BEDTIME zolpidem 10 mg Tablet 10 mg PO BEDTIME clotrimazole 1 % Cream 1 appl topical BID 7 Days Qty: 30 1RF Protocol: Apply to: Apply to: under b/l breasts
--- NOTE | 2022-02-20 14:10 | PC.NURSE ---
dumas cath replaced. urine being sent for sample. consulted with case management to see if patient ca be set up with VNA s they would be able to come out and place dumas is becomes displaced in future.
[2022-02-20 14:29] LABS: Appearance Urine Clear; Color Urine Yellow; Glucose Urine UA Negative (Negative); Leukocyte Esterase Urine Large (3+) (Negative); Nitrite Urine Positive (Negative); Specific Gravity - Urine <= 1.005 (1.005-1.025); UMIC TRIGGER UACC YES; Urine Blood Negative (Negative); Urine Ketones Negative (Negative); Urine Protein Negative (Neg-Trace)
[2022-02-20 14:49] LABS: Bacteria Urine 4+ (None Seen); Hyaline Casts Urine 0-2 /LPF (0-2); RBC Urine 0-2 /HPF (0-2); Squamous Epithelial Cell Urine 0-2 /HPF (0-2); UACC Culture Trigger YES; WBC Urine >50 /HPF (0-5)
[2022-02-20] MEDS: Nitrofurantoin Monohyd/M-Cryst 100 MG CAPSULE PO (15:40)
[2022-02-20 21:08] VITALS: BP 139/76; PULSE 72; RESP 16; TEMP 36.6; O2SAT 98
[2022-02-20 22:00] VITALS: BP 136/70; PULSE 62; RESP 16; TEMP 36.5; O2SAT 95
[2022-02-21] MEDS: carisoprodoL 350 MG TABLET PO (02:39)
[2022-02-21 04:59] VITALS: BP 132/76; PULSE 75; RESP 16; O2SAT 97
== END 2022-02-21 10:10 | disposition home or self-care (01) ==
PROVIDERS: Emergency Provider Internal Medicine
DX: Z46.6 Encounter for fitting and adjustment of urinary device (principal); T83.592A Infection and inflammatory reaction due to indwelling ureteral stent, initial encounter; N39.0 Urinary tract infection, site not specified; B96.20 Unspecified Escherichia coli [E. coli] as the cause of diseases classified elsewhere; Y82.8 Other medical devices associated with adverse incidents; E11.9 Type 2 diabetes mellitus without complications; E78.5 Hyperlipidemia, unspecified; I10 Essential (primary) hypertension; G35 Multiple sclerosis; F17.210 Nicotine dependence, cigarettes, uncomplicated; Z79.82 Long term (current) use of aspirin; Z79.02 Long term (current) use of antithrombotics/antiplatelets; Z79.899 Other long term (current) drug therapy
CPT/HCPCS: 51702; 81001; 87086; 87088; 87186; 99283; 99284

== ENCOUNTER 2022-02-22 21:28 | Emergency (ER) | payer MEDICARE, OTHER, SELFPAY ==
--- NOTE | ~2022-02-22 | XR_ITS ---
EXAMINATION: XR CHEST CLINICAL INFORMATION: Cough COMPARISON: 12/11/2021 TECHNIQUE: Frontal view of the chest was obtained. FINDINGS: The lungs are well expanded. There is no focal consolidation, edema, or effusion. No pneumothorax. The cardiomediastinal silhouette is within normal limits. No acute osseous abnormality. XR/XR chest 1V IMPRESSION: Clear lungs.
[2022-02-22 21:39] VITALS: BP 120/70; BP 142/76; PULSE 103; PULSE 97; RESP 18; TEMP 36.7; O2SAT 96; O2SAT 98; BMI 21.9
--- NOTE | 2022-02-22 21:54 | ED.FEMALEGU ---
HPI - Female Genitourinary General Chief complaint: Urogenital-Female Stated complaint: needs cath placment Time Seen by Provider: 02/22/22 21:39 Source: patient Mode of arrival: EMS History of Present Illness HPI Narrative: 61-year-old female with history of MS, is brought in by ambulance for accidental Marshall catheter dislodgement. The Marshall catheter is chronic due to patient's underlying condition. Patient is also currently being treated for a urinary tract infection, and on review of prior microbiology results there was mixed franklyn contamination, and current sensitivities for urine microbiology are pending although there are greater than 100 colony-forming units. She otherwise reports that she smokes daily, denies any nausea/vomiting or shortness of breath. She denies any abdominal pain, fever/chills. Related Data Home Medications Medication Instructions Recorded Confirmed aspirin 81 mg chewable tablet 81 mg PO DAILY 02/11/22 02/11/22 baclofen 20 mg tablet 20 mg PO BEDTIME 02/11/22 02/11/22 baclofen 20 mg tablet 20 mg PO QID 02/11/22 02/11/22 carisoprodol 350 mg tablet 350 mg PO TID PRN Muscle Spasm 02/11/22 02/11/22 diazepam 10 mg tablet 10 mg PO BEDTIME 02/11/22 02/11/22 simvastatin 40 mg tablet 40 mg PO BEDTIME 02/11/22 02/11/22 zolpidem 10 mg tablet 10 mg PO BEDTIME 02/11/22 02/11/22 Previous Rx's Medication Instructions Recorded clotrimazole 1 % topical cream 1 appl topical BID 7 days #30 grams 02/13/22 nitrofurantoin 100 mg PO BID #20 caps 02/20/22 monohydrate/macrocrystals 100 mg capsule (Macrobid) Allergies Allergy/AdvReac Type Severity Reaction Status Date / Time No Known Allergies Allergy Verified 04/18/20 09:07 Review of Systems Review of Systems: Pertinent positives and negatives as stated in HPI 10 point review of systems is otherwise negative. PMFSH Past Medical History Source: nursing notes reviewed Medical History Adult failure to thrive Bacteriuria COPD (chronic obstructive pulmonary disease) Diabetes Femoral distal fracture Fracture of left tibial plateau Frequent falls Gram-positive cocci bacteremia Hemiparesis of left nondominant side Hyperlipidemia Hypertension Left hemiparesis Left humeral fracture Multiple sclerosis Multiple sclerosis NSTEMI (non-ST elevated myocardial infarction) Physical deconditioning Physical deconditioning Polysubstance abuse Pyuria Seizure disorder Urinary retention UTI (urinary tract infection) UTI (urinary tract infection) UTI (urinary tract infection) Weakness Weakness Surgical History No pertinent past surgical history Family History Family History Other Adopted Social History Social History Household Members: Spouse Housing: House Do you presently have visiting nurse or other home services: Yes Alcohol intake: never Patient Tobacco Use Status: Current everyday Tobacco user Tobacco use type: Cigarette Cigarette Packs Per Day: 0.5 Cigarettes Per Day: 1 Second Hand Smoke Exposure: No Substance Use Type: Opiates Advance Directives: Yes Advance Directives on File: Yes Advance Directives Date on File: 04/10/20 service: No Current occupational status: retired and disabled Physical Exam Vital Signs: Vital Signs: Last Vital Signs Temp 98.1 F 02/22/22 21:39 Pulse 97 02/22/22 21:39 Resp 18 02/22/22 21:39 BP 142/76 H 02/22/22 21:39 Pulse Ox 96 02/22/22 21:39 O2 Del Method 02/22/22 21:39 BMI result Body Mass Index 21.9 VITAL SIGNS: Reviewed. GENERAL: Chronically ill, in mild distress. HEAD: Normocephalic/atraumatic, EYES: PERRLA, EOMI EARS: Ext canals without abnormality NOSE: Nares patent bilateral OROPHARYNX: no oral lesions noted, posterior pharynx clear , dry mucosa NECK: Supple, no adenopathy LUNGS: Crackles noted on the left with bibasilar decreased breath sounds, no tachypnea. SpO2<96> CARDIOVASCULAR: Regular rate and rhythm without noted murmurs, no JVD or lower extremity edema. ABDOMEN: Soft, non-tender, non-distended with bowel sounds. MUSCULOSKELETAL: No tenderness, deformities, or effusions noted on gross inspection. EXTREMITIES: No cyanosis, clubbing or edema. SKIN: Inspection of the skin reveals no rashes NEUROLOGIC: Drowsy but arousable and oriented x 3. History of MS with left-sided hemiplegia Course Course Course Narrative: 61-year-old female with history and clinical presentation consistent with accidental Marshall catheter dislodgement. Given clinical exam which demonstrates significant crackles on the left side will obtain basic labs, chest x-ray as well as placing Marshall catheter in sending repeat urinalysis. Patient is otherwise comfortable in afebrile. Review of all investigations otherwise negative for acute findings other than known UTI for which she is currently receiving treatment. All results discussed with her baseline she was discharged home in stable condition with a new Marshall catheter in place. MDM - Female Genitourinary Lab Data Result diagrams: 02/22/22 21:59 02/22/22 21:59 Labs: Lab Results 02/22/22 02/22/22 02/22/22 Range/Units 21:59 21:59 21:59 WBC 5.8 (4.8-10.8) X10*3/uL RBC 4.52 (4.20-5.50) X10*6/uL Hgb 13.6 (12.0-16.0) g/dl Hct 41.9 (37.0-47.0) % MCV 92.7 (80.0-98.0) fL MCH 30.1 (27.0-33.0) pg MCHC 32.5 (31.0-35.0) g/dl RDW 13.8 (11.0-16.0) % Plt Count 329 (160-400) X10*3/uL MPV 9.2 L (9.4-12.3) fL Immature Gran % (Auto) 0.2 (0.0-0.4) % Neut % (Auto) 74.9 H (45-73) % Lymph % (Auto) 11.7 L (20-40) % [place] % (Auto) 11.0 (2-11) % Eos % (Auto) 1.7 (0-4) % Baso % (Auto) 0.5 (0-2) % Lymph # (Auto) 0.7 L (1.2-4.9) X10*3/uL [place] # (Auto) 0.6 (0.1-1.2) X10*3/uL Eos # (Auto) 0.1 (0.0-0.4) X10*3/uL Baso # (Auto) 0.0 (0.0-0.2) X10*3/uL Abs Immat Gran (auto) 0.01 (0.00-0.03) X10*3/uL Absolute Neuts (auto) 4.4 (2.0-8.3) x10*3/uL Absolute Nucleated RBC 0.000 (0.0-0.012) X10*3/uL Nucleated RBC % (auto) 0.0 (0.0-0.2) /100WBC Sodium 141 (135-145) mmol/L Potassium 4.2 (3.3-5.1) mmol/L Chloride 102 (96-108) mmol/L Carbon Dioxide 29 (22-29) mmol/L Anion Gap 14 (12-20) BUN 6 L (9-16) mg/dL Creatinine 0.66 (0.5-1.4) mg/dL Estim Creat Clear Calc 81.6 Estimated GFR > 60 Random Glucose 112 (60-115) mg/dL Lactic Acid 0.9 (0.5-2.0) mmol/L Calcium 9.7 (8.4-10.2) mg/dL Total Bilirubin 0.2 (0.0-1.0) mg/dL AST 16 (5-31) U/L ALT 19 (0-31) U/L Alkaline Phosphatase 105 (39-117) U/L Total Protein 7.1 (6.5-8.0) g/dL Albumin 4.1 (3.5-5.0) g/dL Urine Color Urine Appearance Urine pH (5.0-9.0) Ur Specific [place] (1.005-1.025) Urine Protein (Neg-Trace) mg/dL Urine Glucose (UA) (Negative) mg/dL Urine Ketones (Negative) mg/dL Urine Blood (Negative) Urine Nitrite (Negative) Ur Leukocyte Esterase (Negative) Urine RBC (0-2) /HPF Urine WBC (0-5) /HPF Ur Squamous Epith Cells (0-2) /HPF Urine Bacteria (None Seen) Hyaline Casts (0-2) /LPF 02/22/22 Range/Units 22:42 WBC (4.8-10.8) X10*3/uL RBC (4.20-5.50) X10*6/uL Hgb (12.0-16.0) g/dl Hct (37.0-47.0) % MCV (80.0-98.0) fL MCH (27.0-33.0) pg MCHC (31.0-35.0) g/dl RDW (11.0-16.0) % Plt Count (160-400) X10*3/uL MPV (9.4-12.3) fL Immature Gran % (Auto) (0.0-0.4) % Neut % (Auto) (45-73) % Lymph % (Auto) (20-40) % [place] % (Auto) (2-11) % Eos % (Auto) (0-4) % Baso % (Auto) (0-2) % Lymph # (Auto) (1.2-4.9) X10*3/uL [place] # (Auto) (0.1-1.2) X10*3/uL Eos # (Auto) (0.0-0.4) X10*3/uL Baso # (Auto) (0.0-0.2) X10*3/uL Abs Immat Gran (auto) (0.00-0.03) X10*3/uL Absolute Neuts (auto) (2.0-8.3) x10*3/uL Absolute Nucleated RBC (0.0-0.012) X10*3/uL Nucleated RBC % (auto) (0.0-0.2) /100WBC Sodium (135-145) mmol/L Potassium (3.3-5.1) mmol/L Chloride (96-108) mmol/L Carbon Dioxide (22-29) mmol/L Anion Gap (12-20) BUN (9-16) mg/dL Creatinine (0.5-1.4) mg/dL Estim Creat Clear Calc Estimated GFR Random Glucose (60-115) mg/dL Lactic Acid (0.5-2.0) mmol/L Calcium (8.4-10.2) mg/dL Total Bilirubin (0.0-1.0) mg/dL AST (5-31) U/L ALT (0-31) U/L Alkaline Phosphatase (39-117) U/L Total Protein (6.5-8.0) g/dL Albumin (3.5-5.0) g/dL Urine Color Yellow Urine Appearance Clear Urine pH 6.5 (5.0-9.0) Ur Specific [place] <= 1.005 (1.005-1.025) Urine Protein Negative (Neg-Trace) mg/dL Urine Glucose (UA) Negative (Negative) mg/dL Urine Ketones Negative (Negative) mg/dL Urine Blood Negative (Negative) Urine Nitrite Negative (Negative) Ur Leukocyte Esterase Moderate (2+) H (Negative) Urine RBC 0-2 (0-2) /HPF Urine WBC 11-20 H (0-5) /HPF Ur Squamous Epith Cells 3-5 (0-2) /HPF Urine Bacteria 4+ (None Seen) Hyaline Casts 0-2 (0-2) /LPF Discharge Plan Discharge Clinical Impression: Complication of Marshall catheter, UTI (urinary tract infection) Patient Disposition: Home, Self-Care Instructions: Catheter-associated Urinary Tract Infection (ED), Marshall Catheter Placement and Care (ED) Additional Instructions: 1. Resume all home medications as prescribed. 2. Call the office of your primary care provider in the morning and set up an appointment for re-evaluation. Return to the ER for worsening symptoms. Prescriptions: No Action carisoprodol 350 mg Tablet 350 mg PO TID PRN (Reason: Muscle Spasm) simvastatin 40 mg Tablet 40 mg PO BEDTIME baclofen 20 mg Tablet 20 mg PO QID baclofen 20 mg Tablet 20 mg PO BEDTIME aspirin 81 mg Tablet,Chewable 81 mg PO DAILY diazepam 10 mg Tablet 10 mg PO BEDTIME zolpidem 10 mg Tablet 10 mg PO BEDTIME clotrimazole 1 % Cream 1 appl topical BID 7 Days Qty: 30 1RF Protocol: Apply to: Apply to: under b/l breasts nitrofurantoin monohyd/m-cryst [Macrobid] 100 mg capsule 100 mg PO BID Qty: 20 0RF Rx Instructions: must administer with a meal/food
[2022-02-22 22:04] LABS: MANUAL DIFF FLAG NO
[2022-02-22 22:07] LABS: Basophils Percent Auto 0.5 % (0-2); Eosinophils Absolute Auto 0.1 X10*3/uL (0.0-0.4); Eosinophils Percent Auto 1.7 % (0-4); Hematocrit 41.9 % (37.0-47.0); Hemoglobin 13.6 g/dl (12.0-16.0); Imm Gran Abs Auto 0.01 X10*3/uL (0.00-0.03); Imm Gran Pct Auto 0.2 % (0.0-0.4); Lymphocytes Absolute Auto 0.7 X10*3/uL (1.2-4.9); Lymphocytes Percent Auto 11.7 % (20-40); Mean Corpuscular HGB Conc 32.5 g/dl (31.0-35.0); Mean Corpuscular Hemoglobin 30.1 pg (27.0-33.0); Mean Corpuscular Volume 92.7 fL (80.0-98.0); Mean Platelet Volume 9.2 fL (9.4-12.3); Monocytes Absolute Auto 0.6 X10*3/uL (0.1-1.2); Neutrophils Absolute Auto 4.4 x10*3/uL (2.0-8.3); Neutrophils Percent Auto 74.9 % (45-73); Platelet Count 329 X10*3/uL (160-400); Red Blood Count 4.52 X10*6/uL (4.20-5.50); Red Cell Distribution Width 13.8 % (11.0-16.0); White Blood Count 5.8 X10*3/uL (4.8-10.8)
[2022-02-22 22:16] LABS: Lactic Acid 0.9 mmol/L (0.5-2.0)
[2022-02-22 22:21] LABS: Alanine Aminotransferase 19 U/L (0-31); Albumin Level 4.1 g/dL (3.5-5.0); Alkaline Phosphatase 105 U/L (39-117); Anion Gap 14 (12-20); Aspartate Amino Transferase 16 U/L (5-31); Bilirubin Total 0.2 mg/dL (0.0-1.0); Blood Urea Nitrogen 6 mg/dL (9-16); Calcium 9.7 mg/dL (8.4-10.2); Carbon Dioxide 29 mmol/L (22-29); Chloride 102 mmol/L (96-108); Creatinine Clr Calc Pharmacy 81.6; Estimated Glomerular Filt Rate > 60; Glucose Random 112 mg/dL (60-115); Potassium 4.2 mmol/L (3.3-5.1); Sodium 141 mmol/L (135-145); Total Protein 7.1 g/dL (6.5-8.0)
[2022-02-22 22:55] LABS: Appearance Urine Clear; Color Urine Yellow; Glucose Urine UA Negative (Negative); Leukocyte Esterase Urine Moderate (2+) (Negative); Nitrite Urine Negative (Negative); PH 6.5 (5.0-9.0); Specific Gravity - Urine <= 1.005 (1.005-1.025); UMIC TRIGGER UACC YES; Urine Blood Negative (Negative); Urine Ketones Negative (Negative); Urine Protein Negative (Neg-Trace)
[2022-02-22 22:59] LABS: Bacteria Urine 4+ (None Seen); Hyaline Casts Urine 0-2 /LPF (0-2); RBC Urine 0-2 /HPF (0-2); UACC Culture Trigger YES
[2022-02-22 23:23] VITALS: BP 104/61; PULSE 83; RESP 16; TEMP 36.9; O2SAT 94
[2022-02-23 08:49] VITALS: BP 103/58; PULSE 84; RESP 14; TEMP 36.8; O2SAT 94
== END 2022-02-23 10:54 | disposition home or self-care (01) ==
PROVIDERS: Emergency Provider Student in an Organized Health Care Education/Training Program
DX: N39.0 Urinary tract infection, site not specified (principal); R05.9 Cough, unspecified; F17.210 Nicotine dependence, cigarettes, uncomplicated; T83.9XXA Unspecified complication of genitourinary prosthetic device, implant and graft, initial encounter; Y73.8 Miscellaneous gastroenterology and urology devices associated with adverse incidents, not elsewhere classified; Y92.9 Unspecified place or not applicable; Z71.6 Tobacco abuse counseling; Z79.899 Other long term (current) drug therapy
CPT/HCPCS: 36415; 51702; 51798; 71045; 80053; 81001; 83605; 85025; 87040; 87086; 87088; 87186; 99284

== ENCOUNTER 2022-03-02 01:29 | Inpatient (IN) | payer MEDICARE, OTHER, SELFPAY ==
[2022-03-02] VITALS (24 sets, daily range): BP systolic 88–166; BP diastolic 53–93; PULSE 69–115; RESP 9–20; TEMP 30–37.2; O2SAT 93–100; BMI 26.3
--- NOTE | ~2022-03-02 | XR_ITS ---
EXAMINATION: XR CHEST CLINICAL INFORMATION: Altered mental status. Unresponsive. COMPARISON: 02/22/2022 TECHNIQUE: Frontal view of the chest was obtained. FINDINGS: Cardiac leads overlie the chest. The lungs are well expanded. There is no focal consolidation, edema, or effusion. No pneumothorax. The cardiomediastinal silhouette is within normal limits of size with a calcified aorta. No acute osseous abnormality. XR/XR chest 1V IMPRESSION: Clear lungs.
--- NOTE | ~2022-03-02 | CT_ITS ---
EXAMINATION: CT HEAD WITHOUT CONTRAST CLINICAL INFORMATION: Altered mental status. Unresponsive. COMPARISON: 02/11/2022 TECHNIQUE: Contiguous axial imaging was performed from the skull base to vertex without intravenous contrast. This CT examination was performed using dose optimization techniques as appropriate, variously including the following: * Automated exposure control * Adjustment of mA and/or kV according to patient size (this includes techniques or standardized protocols for targeted exams where dose is matched to indication/reason for exam; i.e. extremities or head) Use of iterative reconstruction technique DLP: 659 mGy-cm. FINDINGS: There is no evidence of acute intracranial hemorrhage or territorial infarction. No abnormal mass effect or midline shift is seen. Verdugo to white matter differentiation is well preserved. No extra-axial fluid collections are identified. No hydrocephalus. Proportional prominence of the ventricles and sulcal spaces is consistent with mild volume loss. Patchy periventricular and deep white matter hypoattenuation is consistent with mild small vessel ischemic changes. Prominent Virchow-Daryl space inferiorly on the right basal ganglia region. The osseous structures and soft tissues are normal. The mastoid air cells and visualized portions of the paranasal sinuses are well aerated. CT/CT head/brain wo IV con IMPRESSION: No acute intracranial pathology.
--- NOTE | ~2022-03-02 | CT_ITS ---
EXAMINATION: CT CHEST WITHOUT CONTRAST CT ABDOMEN AND PELVIS WITHOUT CONTRAST CLINICAL INFORMATION: Sepsis, looking for source . COMPARISON: CT dated 01/06/2022 TECHNIQUE: Multidetector volumetric imaging was performed from the thoracic inlet through the pubic symphysis. Sagittal and coronal images were reformatted. This CT examination was performed using dose optimization techniques as appropriate, variously including the following: *Automated exposure control *Adjustment of mA and/or kV according to patient size (this includes techniques or standardized protocols for targeted exams where dose is matched to indication/reason for exam; i.e. extremities or head) *Use of iterative reconstruction technique DOSE: 921 mGy-cm FINDINGS: -CHEST- LUNG: Subsegmental atelectasis is evident within the left lower lobe, most closely at the superior segments. Superimposed consolidation is possible, though felt to be less likely. The minimal linear atelectasis is evident in the right lower lobe dependently. Secretions are present within the trachea and right mainstem bronchus centrally. No significant endobronchial opacities distally. There is relative narrowing of the AP diameter of the tracheal lumen (4 mm) on this study which was likely obtained during expiration. MEDIASTINUM: Right IJ central venous catheter tip terminates the cavoatrial junction. Minimal calcific atherosclerosis in the coronary arteries. Heart is normal in size. Trace fluid in the esophagus. No mediastinal or hilar adenopathy. PERICARDIUM/PLEURA: Trace right pleural effusion. No pericardial effusion. CHEST WALL/AXILLA: Unremarkable. -ABDOMEN/PELVIS- LIVER, GALLBLADDER, BILIARY TREE: The liver is normal in size, shape, and attenuation. No focal hepatic lesion or biliary ductal dilatation is present. The gallbladder is unremarkable with no evidence of radiopaque gallstones, gallbladder wall thickening, or obvious pericholecystic inflammatory changes. PANCREAS: Normal; no mass or surrounding fluid. SPLEEN: Normal size. No focal lesion. ADRENAL GLANDS: Normal; no mass. KIDNEYS AND URETERS: The kidneys are normal in size, shape, and attenuation. No hydronephrosis, hydroureter, or calculi seen. No perinephric stranding. BLADDER: Marshall catheter terminates within a thin-walled, empty bladder. Trace amount of intraluminal gas in the bladder related to the Marshall catheter. GASTROINTESTINAL TRACT: Stomach, small bowel, and colon are normal in caliber. No bowel wall thickening or surrounding inflammatory change. Mild colonic diverticulosis without evidence of acute diverticulitis. Appendix is normal. No intraperitoneal free fluid or free air. ABDOMINAL WALL: No significant hernia is appreciated. VASCULATURE: Atherosclerotic calcifications are present in the abdominal aorta and iliac arteries. No aneurysmal dilatation. LYMPH NODES: No lymphadenopathy. . PELVIC VISCERA: The uterus and adnexa are unremarkable. OSSEUS STRUCTURES: Mild degenerative spondylosis in the lumbar spine. Mild osteoarthritis in the hips and SI joints. No acute osseous findings. No evidence of osteomyelitis. SUPERFICIAL SOFT TISSUES: There is focal subcutaneous fat stranding overlying the left ischial tuberosity without appreciable subcutaneous gas, possibly due to a developing pressure sore. Underlying bone is unremarkable. CT/CT abdomen pelvis wo IV con IMPRESSION: 1. A clear source of infection is not identified in the chest, abdomen, and pelvis. There is subsegmental atelectasis in the left lower lobe. A small focus of superimposed consolidation in this region is possible, though not favored. 2. Focal subcutaneous fat stranding overlying the left ischial tuberosity which may correspond to a developing pressure sore. No subcutaneous gas or underlying osseous abnormalities. 3. Relative narrowing of the trachea and mainstem bronchus on this expiratory study. This raises the possibility of tracheobronchomalacia, though is not diagnostic in the absence of a comparison inspiratory study. 4. Colonic diverticulosis without evidence of acute diverticulitis.
--- NOTE | 2022-03-02 01:42 | ECG_ITS ---
Test Reason : RUBIO OUT Blood Pressure : / mmHG Vent. Rate : 078 BPM Atrial Rate : 078 BPM P-R Int : 140 ms QRS Dur : 080 ms QT Int : 390 ms P-R-T Axes : 062 036 064 degrees QTc Int : 444 ms Normal sinus rhythm Normal ECG When compared with ECG of 11-FEB-2022 06:08, No significant change was found Referred By: Fariba Morrow Electronically Signed By:SEAN MENDEZ
--- NOTE | 2022-03-02 02:02 | ED.GENADULT ---
HPI - General Adult General Chief complaint: General Medical Stated complaint: catheter needs to be replaced Time Seen by Provider: 03/02/22 01:31 Source: EMS Mode of arrival: EMS Limitations: altered mental status History of Present Illness HPI narrative: Patient comes to the emergency room from home. EMS was called because the patient needs a Marshall catheter changed and has no other complaints. The family reported that the patient stood up from the sofa and accidentally pulled out her Marshall catheter. EMS left after giving us report in the nurse's station. When I went to see the patient, patient was unresponsive even to sternal rub. Related Data Home Medications Medication Instructions Recorded Confirmed aspirin 81 mg chewable tablet 81 mg PO DAILY 02/11/22 02/11/22 baclofen 20 mg tablet 20 mg PO BEDTIME 02/11/22 02/11/22 baclofen 20 mg tablet 20 mg PO QID 02/11/22 02/11/22 carisoprodol 350 mg tablet 350 mg PO TID PRN Muscle Spasm 02/11/22 02/11/22 diazepam 10 mg tablet 10 mg PO BEDTIME 02/11/22 02/11/22 simvastatin 40 mg tablet 40 mg PO BEDTIME 02/11/22 02/11/22 zolpidem 10 mg tablet 10 mg PO BEDTIME 02/11/22 02/11/22 Previous Rx's Medication Instructions Recorded clotrimazole 1 % topical cream 1 appl topical BID 7 days #30 grams 02/13/22 nitrofurantoin 100 mg PO BID #20 caps 02/20/22 monohydrate/macrocrystals 100 mg capsule (Macrobid) nitrofurantoin 100 mg PO BID 7 days #14 caps 02/27/22 monohydrate/macrocrystals 100 mg capsule (Macrobid) Allergies Allergy/AdvReac Type Severity Reaction Status Date / Time No Known Allergies Allergy Verified 04/18/20 09:07 FORMERLY [facility], [facility] Past Medical History Medical History Adult failure to thrive Bacteriuria COPD (chronic obstructive pulmonary disease) Diabetes Femoral distal fracture Fracture of left tibial plateau Frequent falls Gram-positive cocci bacteremia Hemiparesis of left nondominant side Hyperlipidemia Hypertension Left hemiparesis Left humeral fracture Multiple sclerosis Multiple sclerosis NSTEMI (non-ST elevated myocardial infarction) Physical deconditioning Physical deconditioning Polysubstance abuse Pyuria Seizure disorder Urinary retention UTI (urinary tract infection) UTI (urinary tract infection) UTI (urinary tract infection) Weakness Weakness Surgical History No pertinent past surgical history Family History Family History Other Adopted Social History Social History Household Members: Spouse Housing: House Do you presently have visiting nurse or other home services: Yes Alcohol intake: never Patient Tobacco Use Status: Current everyday Tobacco user Tobacco use type: Cigarette Cigarette Packs Per Day: 0.5 Cigarettes Per Day: 1 Second Hand Smoke Exposure: No Substance Use Type: Opiates Advance Directives: Yes Advance Directives on File: Yes Advance Directives Date on File: 04/10/20 service: No Current occupational status: retired and disabled Physical Exam ED Vital Signs: Vital Signs - 24 hr 03/02/22 02:17 03/02/22 02:20 03/02/22 03:47 Temperature 94.5 F L 94.5 F L Pulse Rate 78 Respiratory Rate 9 L Blood Pressure 101/65 88/54 L Pulse Oximetry 100 Oxygen Delivery Method Non-Rebreather Mask Oxygen Flow Rate Fraction of Inspired Oxygen 03/02/22 03:59 03/02/22 03:53 03/02/22 04:26 Temperature 91.9 F L Pulse Rate 69 Respiratory Rate 18 Blood Pressure 111/74 166/93 H Pulse Oximetry 100 Oxygen Delivery Method Mechanical Ventilation Oxygen Flow Rate Fraction of Inspired Oxygen 80 03/02/22 05:22 03/02/22 06:00 03/02/22 07:29 Temperature 92.1 F L 93.0 F L Pulse Rate 85 87 70 Respiratory Rate 19 15 18 Blood Pressure 121/87 120/53 L 107/65 Pulse Oximetry 100 99 98 Oxygen Delivery Method Mechanical Ventilation Oxymask Oxymask Oxygen Flow Rate 6 3 Fraction of Inspired Oxygen 03/02/22 07:51 Temperature Pulse Rate Respiratory Rate 16 Blood Pressure Pulse Oximetry Oxygen Delivery Method Oxygen Flow Rate Fraction of Inspired Oxygen BMI result Body Mass Index 26.3 Course Course Course Narrative: Patient remained unresponsive despite 2 doses of 4 mg intranasal Narcan. Blood pressure started dropping. Patient was started on Levophed peripherally while we were setting up for intubation and central line. Patient was not even responsive to sternal rub. Patient was intubated, and a central line was placed. Before the propofol was started, patient was fully awake, following commands, trying to pull her tube out. Patient did not have any respiratory issues any point, patient was extubated. After a few minutes of being extubated. Patient was able to answer questions appropriately. Patient was lucid for approximately 15-20 minutes. Then patient became obtunded again. Patient oxygenating in the mid 90s on [address] Head CT is negative. CT scan of the chest abdomen and pelvis are nonspecific. Arterial blood gases were obtained, I discussed the patient with Dr. Earl, at this time, we will start BiPAP for 20 minutes. We will recheck gases in 20 minutes. If patient is not awake by then, patient will be reintubated and will be sent to the intensive care unit. 08:24, patient is awake, able to open her eyes. Still somnolent, continues on BiPAP. Patient is still on Levophed, blood pressure 160 systolic. Patient to be admitted to the ICU Procedures Central Line Placement Right IJ: Time Out Performed: Yes Patient Placed on Monitor/Pulse Ox: Yes MD Prep: mask, gown and gloves Central Line Prep: Chlorhexidine scrub Ultrasound Used for Placement: Yes Central Line Lumen Inserted: triple Post Procedure: sutured in place, good blood return, all ports aspirated, flushed, capped and sterile dressing applied Post Procedure X-Ray: tip of catheter in good position and no pneumothorax seen Patient Tolerated Procedure: well Complications: none Intubation Time out performed: Yes sedative: Etomidate (20) Mg Given: 20 paralytic: Rocuronium Mg Given: 80 Laryngoscope: other (Mccall scope) ET Tube Size: 7.5 ET Tube Uncuffed: No Tube Secured Depth (cm): 23 Tube Secured Location: lips Tube Placement Confirmation: visualized tube passing through cords, equal breath sounds bilaterally and no breath sounds over epigastrium Patient Tolerated Procedure: well and no complications Intubation Complications: none Medical Decision Making Lab Data Result diagrams: 03/02/22 02:14 03/02/22 02:14 Labs: Lab Results 03/02/22 03/02/22 03/02/22 Range/Units 02:14 02:14 02:14 WBC 4.0 L (4.8-10.8) X10*3/uL RBC 4.28 (4.20-5.50) X10*6/uL Hgb 12.8 (12.0-16.0) g/dl Hct 40.0 (37.0-47.0) % MCV 93.5 (80.0-98.0) fL MCH 29.9 (27.0-33.0) pg MCHC 32.0 (31.0-35.0) g/dl RDW 13.4 (11.0-16.0) % Plt Count 329 (160-400) X10*3/uL MPV 9.7 (9.4-12.3) fL Immature Gran % (Auto) 0.3 (0.0-0.4) % Neut % (Auto) 78.0 H (45-73) % Lymph % (Auto) 10.1 L (20-40) % [place] % (Auto) 8.3 (2-11) % Eos % (Auto) 2.8 (0-4) % Baso % (Auto) 0.5 (0-2) % Lymph # (Auto) 0.4 L (1.2-4.9) X10*3/uL [place] # (Auto) 0.3 (0.1-1.2) X10*3/uL Eos # (Auto) 0.1 (0.0-0.4) X10*3/uL Baso # (Auto) 0.0 (0.0-0.2) X10*3/uL Abs Immat Gran (auto) 0.01 (0.00-0.03) X10*3/uL Absolute Neuts (auto) 3.1 (2.0-8.3) x10*3/uL Absolute Nucleated RBC 0.000 (0.0-0.012) X10*3/uL Nucleated RBC % (auto) 0.0 (0.0-0.2) /100WBC PT 10.5 (10.0-13.1) SEC INR 0.9 (0.9-1.1) O2 Saturation % ABG pH at Pt Temp (7.35-7.45) ABG pCO2 at Pt Temp (32-45) mmHg ABG pO2 at Pt Temp (83-108) mmHg ABG HCO3 (22-26) mmol/L ABG Base Excess (Actual) mmol/L VBG pH (7.32-7.43) VBG pCO2 mmHg VBG pO2 mmHg VBG HCO3 (22-26) mmol/L VBG O2 Saturation % VBG Base Excess mmol/L Sodium 143 (135-145) mmol/L Potassium 4.1 (3.3-5.1) mmol/L Chloride 106 (96-108) mmol/L Carbon Dioxide 27 (22-29) mmol/L Anion Gap 14 (12-20) BUN 11 D (9-16) mg/dL Creatinine 0.55 (0.5-1.4) mg/dL Estim Creat Clear Calc 108.2 Estimated GFR > 60 POC Glucose (60-115) mg/dL Random Glucose 117 H (60-115) mg/dL Lactic Acid (0.5-2.0) mmol/L Calcium 9.2 (8.4-10.2) mg/dL Magnesium 2.4 (1.6-2.6) mg/dL Total Bilirubin < 0.2 (0.0-1.0) mg/dL Direct Bilirubin < 0.2 (0.0-0.5) mg/dL AST 13 (5-31) U/L ALT 15 (0-31) U/L Alkaline Phosphatase 80 D (39-117) U/L Ammonia (13-55) umol/L Troponin I High Sens (<3.5-17.0) ng/L B-Natriuretic Peptide (<100) pg/mL Total Protein 6.3 L (6.5-8.0) g/dL Albumin 3.9 (3.5-5.0) g/dL Lipase 28 (8-78) U/L TSH (0.32-4.0) uIU/mL Free T4 (0.71-1.85) ng/dL Urine Color Urine Appearance Urine pH (5.0-9.0) Ur Specific [place] (1.005-1.025) Urine Protein (Neg-Trace) mg/dL Urine Glucose (UA) (Negative) mg/dL Urine Ketones (Negative) mg/dL Urine Blood (Negative) Urine Nitrite (Negative) Ur Leukocyte Esterase (Negative) Urine RBC (0-2) /HPF Urine WBC (0-5) /HPF Ur Squamous Epith Cells (0-2) /HPF Calcium Oxalate Crystal Urine Bacteria (None Seen) Hyaline Casts (0-2) /LPF Urine Opiates Screen (Not Detect) Urine Fentanyl Screen (Not Detect) Ur Barbiturates Screen (Not Detect) Ur Phencyclidine Scrn (Not Detect) Ur Amphetamines Screen (Not Detect) U Benzodiazepines Scrn (Not Detect) Urine Cocaine Screen (Not Detect) U Marijuana (THC) Screen (Not Detect) Ethyl Alcohol mg/dL COVID-19 (ALESSANDRA) (Negative) COVID-19 Clin Com 03/02/22 03/02/22 03/02/22 Range/Units 02:14 02:15 02:19 WBC (4.8-10.8) X10*3/uL RBC (4.20-5.50) X10*6/uL Hgb (12.0-16.0) g/dl Hct (37.0-47.0) % MCV (80.0-98.0) fL MCH (27.0-33.0) pg MCHC (31.0-35.0) g/dl RDW (11.0-16.0) % Plt Count (160-400) X10*3/uL MPV (9.4-12.3) fL Immature Gran % (Auto) (0.0-0.4) % Neut % (Auto) (45-73) % Lymph % (Auto) (20-40) % [place] % (Auto) (2-11) % Eos % (Auto) (0-4) % Baso % (Auto) (0-2) % Lymph # (Auto) (1.2-4.9) X10*3/uL [place] # (Auto) (0.1-1.2) X10*3/uL Eos # (Auto) (0.0-0.4) X10*3/uL Baso # (Auto) (0.0-0.2) X10*3/uL Abs Immat Gran (auto) (0.00-0.03) X10*3/uL Absolute Neuts (auto) (2.0-8.3) x10*3/uL Absolute Nucleated RBC (0.0-0.012) X10*3/uL Nucleated RBC % (auto) (0.0-0.2) /100WBC PT (10.0-13.1) SEC INR (0.9-1.1) O2 Saturation % ABG pH at Pt Temp (7.35-7.45) ABG pCO2 at Pt Temp (32-45) mmHg ABG pO2 at Pt Temp (83-108) mmHg ABG HCO3 (22-26) mmol/L ABG Base Excess (Actual) mmol/L VBG pH 7.37 (7.32-7.43) VBG pCO2 49 mmHg VBG pO2 220 mmHg VBG HCO3 29 H (22-26) mmol/L VBG O2 Saturation 100.0 % VBG Base Excess 2.9 mmol/L Sodium (135-145) mmol/L Potassium (3.3-5.1) mmol/L Chloride (96-108) mmol/L Carbon Dioxide (22-29) mmol/L Anion Gap (12-20) BUN (9-16) mg/dL Creatinine (0.5-1.4) mg/dL Estim Creat Clear Calc Estimated GFR POC Glucose (60-115) mg/dL Random Glucose (60-115) mg/dL Lactic Acid (0.5-2.0) mmol/L Calcium (8.4-10.2) mg/dL Magnesium (1.6-2.6) mg/dL Total Bilirubin (0.0-1.0) mg/dL Direct Bilirubin (0.0-0.5) mg/dL AST (5-31) U/L ALT (0-31) U/L Alkaline Phosphatase (39-117) U/L Ammonia (13-55) umol/L Troponin I High Sens < 3.5 (<3.5-17.0) ng/L B-Natriuretic Peptide < 10 (<100) pg/mL Total Protein (6.5-8.0) g/dL Albumin (3.5-5.0) g/dL Lipase (8-78) U/L TSH 0.30 L (0.32-4.0) uIU/mL Free T4 0.71 (0.71-1.85) ng/dL Urine Color Urine Appearance Urine pH (5.0-9.0) Ur Specific [place] (1.005-1.025) Urine Protein (Neg-Trace) mg/dL Urine Glucose (UA) (Negative) mg/dL Urine Ketones (Negative) mg/dL Urine Blood (Negative) Urine Nitrite (Negative) Ur Leukocyte Esterase (Negative) Urine RBC (0-2) /HPF Urine WBC (0-5) /HPF Ur Squamous Epith Cells (0-2) /HPF Calcium Oxalate Crystal Urine Bacteria (None Seen) Hyaline Casts (0-2) /LPF Urine Opiates Screen (Not Detect) Urine Fentanyl Screen (Not Detect) Ur Barbiturates Screen (Not Detect) Ur Phencyclidine Scrn (Not Detect) Ur Amphetamines Screen (Not Detect) U Benzodiazepines Scrn (Not Detect) Urine Cocaine Screen (Not Detect) U Marijuana (THC) Screen (Not Detect) Ethyl Alcohol < 10 mg/dL COVID-19 (ALESSANDRA) (Negative) COVID-19 Clin Com 03/02/22 03/02/22 03/02/22 Range/Units 02:51 02:51 02:52 WBC (4.8-10.8) X10*3/uL RBC (4.20-5.50) X10*6/uL Hgb (12.0-16.0) g/dl Hct (37.0-47.0) % MCV (80.0-98.0) fL MCH (27.0-33.0) pg MCHC (31.0-35.0) g/dl RDW (11.0-16.0) % Plt Count (160-400) X10*3/uL MPV (9.4-12.3) fL Immature Gran % (Auto) (0.0-0.4) % Neut % (Auto) (45-73) % Lymph % (Auto) (20-40) % [place] % (Auto) (2-11) % Eos % (Auto) (0-4) % Baso % (Auto) (0-2) % Lymph # (Auto) (1.2-4.9) X10*3/uL [place] # (Auto) (0.1-1.2) X10*3/uL Eos # (Auto) (0.0-0.4) X10*3/uL Baso # (Auto) (0.0-0.2) X10*3/uL Abs Immat Gran (auto) (0.00-0.03) X10*3/uL Absolute Neuts (auto) (2.0-8.3) x10*3/uL Absolute Nucleated RBC (0.0-0.012) X10*3/uL Nucleated RBC % (auto) (0.0-0.2) /100WBC PT (10.0-13.1) SEC INR (0.9-1.1) O2 Saturation % ABG pH at Pt Temp (7.35-7.45) ABG pCO2 at Pt Temp (32-45) mmHg ABG pO2 at Pt Temp (83-108) mmHg ABG HCO3 (22-26) mmol/L ABG Base Excess (Actual) mmol/L VBG pH (7.32-7.43) VBG pCO2 mmHg VBG pO2 mmHg VBG HCO3 (22-26) mmol/L VBG O2 Saturation % VBG Base Excess mmol/L Sodium (135-145) mmol/L Potassium (3.3-5.1) mmol/L Chloride (96-108) mmol/L Carbon Dioxide (22-29) mmol/L Anion Gap (12-20) BUN (9-16) mg/dL Creatinine (0.5-1.4) mg/dL Estim Creat Clear Calc Estimated GFR POC Glucose (60-115) mg/dL Random Glucose (60-115) mg/dL Lactic Acid 1.2 (0.5-2.0) mmol/L Calcium (8.4-10.2) mg/dL Magnesium (1.6-2.6) mg/dL Total Bilirubin (0.0-1.0) mg/dL Direct Bilirubin (0.0-0.5) mg/dL AST (5-31) U/L ALT (0-31) U/L Alkaline Phosphatase (39-117) U/L Ammonia 34 (13-55) umol/L Troponin I High Sens (<3.5-17.0) ng/L B-Natriuretic Peptide (<100) pg/mL Total Protein (6.5-8.0) g/dL Albumin (3.5-5.0) g/dL Lipase (8-78) U/L TSH (0.32-4.0) uIU/mL Free T4 (0.71-1.85) ng/dL Urine Color Urine Appearance Urine pH (5.0-9.0) Ur Specific [place] (1.005-1.025) Urine Protein (Neg-Trace) mg/dL Urine Glucose (UA) (Negative) mg/dL Urine Ketones (Negative) mg/dL Urine Blood (Negative) Urine Nitrite (Negative) Ur Leukocyte Esterase (Negative) Urine RBC (0-2) /HPF Urine WBC (0-5) /HPF Ur Squamous Epith Cells (0-2) /HPF Calcium Oxalate Crystal Urine Bacteria (None Seen) Hyaline Casts (0-2) /LPF Urine Opiates Screen (Not Detect) Urine Fentanyl Screen (Not Detect) Ur Barbiturates Screen (Not Detect) Ur Phencyclidine Scrn (Not Detect) Ur Amphetamines Screen (Not Detect) U Benzodiazepines Scrn (Not Detect) Urine Cocaine Screen (Not Detect) U Marijuana (THC) Screen (Not Detect) Ethyl Alcohol mg/dL COVID-19 (ALESSANDRA) Negative (Negative) COVID-19 Clin Com See Note 03/02/22 03/02/22 03/02/22 Range/Units 03:13 07:15 08:13 WBC (4.8-10.8) X10*3/uL RBC (4.20-5.50) X10*6/uL Hgb (12.0-16.0) g/dl Hct (37.0-47.0) % MCV (80.0-98.0) fL MCH (27.0-33.0) pg MCHC (31.0-35.0) g/dl RDW (11.0-16.0) % Plt Count (160-400) X10*3/uL MPV (9.4-12.3) fL Immature Gran % (Auto) (0.0-0.4) % Neut % (Auto) (45-73) % Lymph % (Auto) (20-40) % [place] % (Auto) (2-11) % Eos % (Auto) (0-4) % Baso % (Auto) (0-2) % Lymph # (Auto) (1.2-4.9) X10*3/uL [place] # (Auto) (0.1-1.2) X10*3/uL Eos # (Auto) (0.0-0.4) X10*3/uL Baso # (Auto) (0.0-0.2) X10*3/uL Abs Immat Gran (auto) (0.00-0.03) X10*3/uL Absolute Neuts (auto) (2.0-8.3) x10*3/uL Absolute Nucleated RBC (0.0-0.012) X10*3/uL Nucleated RBC % (auto) (0.0-0.2) /100WBC PT (10.0-13.1) SEC INR (0.9-1.1) O2 Saturation 97.0 95.0 % ABG pH at Pt Temp 7.29 L 7.33 L (7.35-7.45) ABG pCO2 at Pt Temp 57 H 40 (32-45) mmHg ABG pO2 at Pt Temp 108 82 L (83-108) mmHg ABG HCO3 28 H 22 (22-26) mmol/L ABG Base Excess (Actual) 1.0 -3.5 mmol/L VBG pH (7.32-7.43) VBG pCO2 mmHg VBG pO2 mmHg VBG HCO3 (22-26) mmol/L VBG O2 Saturation % VBG Base Excess mmol/L Sodium (135-145) mmol/L Potassium (3.3-5.1) mmol/L Chloride (96-108) mmol/L Carbon Dioxide (22-29) mmol/L Anion Gap (12-20) BUN (9-16) mg/dL Creatinine (0.5-1.4) mg/dL Estim Creat Clear Calc Estimated GFR POC Glucose 125 H (60-115) mg/dL Random Glucose (60-115) mg/dL Lactic Acid (0.5-2.0) mmol/L Calcium (8.4-10.2) mg/dL Magnesium (1.6-2.6) mg/dL Total Bilirubin (0.0-1.0) mg/dL Direct Bilirubin (0.0-0.5) mg/dL AST (5-31) U/L ALT (0-31) U/L Alkaline Phosphatase (39-117) U/L Ammonia (13-55) umol/L Troponin I High Sens (<3.5-17.0) ng/L B-Natriuretic Peptide (<100) pg/mL Total Protein (6.5-8.0) g/dL Albumin (3.5-5.0) g/dL Lipase (8-78) U/L TSH (0.32-4.0) uIU/mL Free T4 (0.71-1.85) ng/dL Urine Color Urine Appearance Urine pH (5.0-9.0) Ur Specific [place] (1.005-1.025) Urine Protein (Neg-Trace) mg/dL Urine Glucose (UA) (Negative) mg/dL Urine Ketones (Negative) mg/dL Urine Blood (Negative) Urine Nitrite (Negative) Ur Leukocyte Esterase (Negative) Urine RBC (0-2) /HPF Urine WBC (0-5) /HPF Ur Squamous Epith Cells (0-2) /HPF Calcium Oxalate Crystal Urine Bacteria (None Seen) Hyaline Casts (0-2) /LPF Urine Opiates Screen (Not Detect) Urine Fentanyl Screen (Not Detect) Ur Barbiturates Screen (Not Detect) Ur Phencyclidine Scrn (Not Detect) Ur Amphetamines Screen (Not Detect) U Benzodiazepines Scrn (Not Detect) Urine Cocaine Screen (Not Detect) U Marijuana (THC) Screen (Not Detect) Ethyl Alcohol mg/dL COVID-19 (ALESSANDRA) (Negative) COVID-19 Clin Com 03/02/22 03/02/22 Range/Units Unknown Unknown WBC (4.8-10.8) X10*3/uL RBC (4.20-5.50) X10*6/uL Hgb (12.0-16.0) g/dl Hct (37.0-47.0) % MCV (80.0-98.0) fL MCH (27.0-33.0) pg MCHC (31.0-35.0) g/dl RDW (11.0-16.0) % Plt Count (160-400) X10*3/uL MPV (9.4-12.3) fL Immature Gran % (Auto) (0.0-0.4) % Neut % (Auto) (45-73) % Lymph % (Auto) (20-40) % [place] % (Auto) (2-11) % Eos % (Auto) (0-4) % Baso % (Auto) (0-2) % Lymph # (Auto) (1.2-4.9) X10*3/uL [place] # (Auto) (0.1-1.2) X10*3/uL Eos # (Auto) (0.0-0.4) X10*3/uL Baso # (Auto) (0.0-0.2) X10*3/uL Abs Immat Gran (auto) (0.00-0.03) X10*3/uL Absolute Neuts (auto) (2.0-8.3) x10*3/uL Absolute Nucleated RBC (0.0-0.012) X10*3/uL Nucleated RBC % (auto) (0.0-0.2) /100WBC PT (10.0-13.1) SEC INR (0.9-1.1) O2 Saturation % ABG pH at Pt Temp (7.35-7.45) ABG pCO2 at Pt Temp (32-45) mmHg ABG pO2 at Pt Temp (83-108) mmHg ABG HCO3 (22-26) mmol/L ABG Base Excess (Actual) mmol/L VBG pH (7.32-7.43) VBG pCO2 mmHg VBG pO2 mmHg VBG HCO3 (22-26) mmol/L VBG O2 Saturation % VBG Base Excess mmol/L Sodium (135-145) mmol/L Potassium (3.3-5.1) mmol/L Chloride (96-108) mmol/L Carbon Dioxide (22-29) mmol/L Anion Gap (12-20) BUN (9-16) mg/dL Creatinine (0.5-1.4) mg/dL Estim Creat Clear Calc Estimated GFR POC Glucose (60-115) mg/dL Random Glucose (60-115) mg/dL Lactic Acid (0.5-2.0) mmol/L Calcium (8.4-10.2) mg/dL Magnesium (1.6-2.6) mg/dL Total Bilirubin (0.0-1.0) mg/dL Direct Bilirubin (0.0-0.5) mg/dL AST (5-31) U/L ALT (0-31) U/L Alkaline Phosphatase (39-117) U/L Ammonia (13-55) umol/L Troponin I High Sens (<3.5-17.0) ng/L B-Natriuretic Peptide (<100) pg/mL Total Protein (6.5-8.0) g/dL Albumin (3.5-5.0) g/dL Lipase (8-78) U/L TSH (0.32-4.0) uIU/mL Free T4 (0.71-1.85) ng/dL Urine Color Yellow Urine Appearance Cloudy Urine pH 6.0 (5.0-9.0) Ur Specific [place] 1.015 (1.005-1.025) Urine Protein Trace (Neg-Trace) mg/dL Urine Glucose (UA) Negative (Negative) mg/dL Urine Ketones Negative (Negative) mg/dL Urine Blood Trace H (Negative) Urine Nitrite Positive H (Negative) Ur Leukocyte Esterase Large (3+) H (Negative) Urine RBC 3-5 H (0-2) /HPF Urine WBC >50 H (0-5) /HPF Ur Squamous Epith Cells 6-10 (0-2) /HPF Calcium Oxalate Crystal Present Urine Bacteria 1+ (None Seen) Hyaline Casts 3-5 (0-2) /LPF Urine Opiates Screen Not Detected (Not Detect) Urine Fentanyl Screen Not Detected (Not Detect) Ur Barbiturates Screen Not Detected (Not Detect) Ur Phencyclidine Scrn Not Detected (Not Detect) Ur Amphetamines Screen Not Detected (Not Detect) U Benzodiazepines Scrn POSITIVE H (Not Detect) Urine Cocaine Screen Not Detected (Not Detect) U Marijuana (THC) Screen Not Detected (Not Detect) Ethyl Alcohol mg/dL COVID-19 (ALESSANDRA) (Negative) COVID-19 Clin Com Critical Care Time Critical Care Time Critical Care Time: Yes Total Critical Care Time: 120 Attestation: I have personally provided critical care time. Time includes review of lab data, radiology results, discussion with consultants, and monitoring for potential decompensation. Intervention performed as documented. Discharge Plan Discharge Clinical Impression: Encephalopathy, Benzodiazepine overdose Patient Disposition: Admitted As Inpatient Prescriptions: No Action carisoprodol 350 mg Tablet 350 mg PO TID PRN (Reason: Muscle Spasm) simvastatin 40 mg Tablet 40 mg PO BEDTIME baclofen 20 mg Tablet 20 mg PO QID baclofen 20 mg Tablet 20 mg PO BEDTIME aspirin 81 mg Tablet,Chewable 81 mg PO DAILY diazepam 10 mg Tablet 10 mg PO BEDTIME zolpidem 10 mg Tablet 10 mg PO BEDTIME clotrimazole 1 % Cream 1 appl topical BID 7 Days Qty: 30 1RF Protocol: Apply to: Apply to: under b/l breasts nitrofurantoin monohyd/m-cryst [Macrobid] 100 mg capsule 100 mg PO BID 7 Days Qty: 14 0RF Rx Instructions: must administer with a meal/food nitrofurantoin monohyd/m-cryst [Macrobid] 100 mg capsule 100 mg PO BID Qty: 20 0RF Rx Instructions: must administer with a meal/food
[2022-03-02 02:25] LABS: VBG Base Excess 2.9 mmol/L; VBG HCO3 29 mmol/L (22-26); VBG pCO2 49 mmHg; VBG pH 7.37 (7.32-7.43); VBG pO2 220 mmHg
[2022-03-02 02:28] LABS: MANUAL DIFF FLAG NO
[2022-03-02 02:31] LABS: Basophils Percent Auto 0.5 % (0-2); Eosinophils Absolute Auto 0.1 X10*3/uL (0.0-0.4); Eosinophils Percent Auto 2.8 % (0-4); Hemoglobin 12.8 g/dl (12.0-16.0); Imm Gran Abs Auto 0.01 X10*3/uL (0.00-0.03); Imm Gran Pct Auto 0.3 % (0.0-0.4); Lymphocytes Absolute Auto 0.4 X10*3/uL (1.2-4.9); Lymphocytes Percent Auto 10.1 % (20-40); Mean Corpuscular Hemoglobin 29.9 pg (27.0-33.0); Mean Corpuscular Volume 93.5 fL (80.0-98.0); Mean Platelet Volume 9.7 fL (9.4-12.3); Monocytes Absolute Auto 0.3 X10*3/uL (0.1-1.2); Monocytes Percent Auto 8.3 % (2-11); Neutrophils Absolute Auto 3.1 x10*3/uL (2.0-8.3); Platelet Count 329 X10*3/uL (160-400); Red Blood Count 4.28 X10*6/uL (4.20-5.50); Red Cell Distribution Width 13.4 % (11.0-16.0)
[2022-03-02 02:32] LABS: Venous Blood Gas Refer to POC result
[2022-03-02 02:35] LABS: INTERNATIONAL NORM RATIO 0.9 (0.9-1.1); Prothrombin Time 10.5 SEC (10.0-13.1)
[2022-03-02 02:50] LABS: Ethanol < 10 mg/dL
[2022-03-02] MEDS: 0.9 % Sodium Chloride 1,000 ML 999 ML IVCONT (02:54)
[2022-03-02 03:00] LABS: Alanine Aminotransferase 15 U/L (0-31); Albumin Level 3.9 g/dL (3.5-5.0); Alkaline Phosphatase 80 U/L (39-117); Anion Gap 14 (12-20); Aspartate Amino Transferase 13 U/L (5-31); Bilirubin Direct < 0.2 mg/dL (0.0-0.5); Bilirubin Total < 0.2 mg/dL (0.0-1.0); Blood Urea Nitrogen 11 mg/dL (9-16); Calcium 9.2 mg/dL (8.4-10.2); Carbon Dioxide 27 mmol/L (22-29); Chloride 106 mmol/L (96-108); Creatinine Clr Calc Pharmacy 108.2; Estimated Glomerular Filt Rate > 60; Glucose Random 117 mg/dL (60-115); Lipase 28 U/L (8-78); Magnesium 2.4 mg/dL (1.6-2.6); Potassium 4.1 mmol/L (3.3-5.1); Sodium 143 mmol/L (135-145); Total Protein 6.3 g/dL (6.5-8.0)
[2022-03-02 03:02] LABS: B Type Natriuretic Peptide < 10 pg/mL (<100); Troponin-I High Sensitivity < 3.5 ng/L (<3.5-17.0)
[2022-03-02 03:08] LABS: Ammonia 34 umol/L (13-55)
[2022-03-02 03:12] LABS: Lactic Acid 1.2 mmol/L (0.5-2.0)
[2022-03-02 03:18] LABS: Glucose, Whole Blood 125 mg/dL (60-115)
[2022-03-02 03:35] LABS: Appearance Urine Cloudy; Color Urine Yellow; Glucose Urine UA Negative (Negative); Leukocyte Esterase Urine Large (3+) (Negative); Nitrite Urine Positive (Negative); Specific Gravity - Urine 1.015 (1.005-1.025); UMIC TRIGGER UACC YES; Urine Blood Trace (Negative); Urine Ketones Negative (Negative); Urine Protein Trace mg/dL (Neg-Trace)
[2022-03-02 03:38] LABS: Amphetamine Screen Urine Not Detected (Not Detect); Barbiturates, Urine Not Detected (Not Detect); Benzodiazepines Screen Urine POSITIVE (Not Detect); Cannabinoid Screen Urine Not Detected (Not Detect); Cocaine Screen Urine Not Detected (Not Detect); Fentanyl, urine Not Detected (Not Detect); Opiate Screen Urine Not Detected (Not Detect); Phencyclidine Screen Urine Not Detected (Not Detect)
[2022-03-02 03:46] LABS: COVID-19 Test Negative (Negative); IDNOW Serial# 16C4AD1C
--- NOTE | 2022-03-02 03:46 | PC.NURSE ---
3:09am IJ placed on the left size 20m 3:10am 20mg of Etomidate, 80 mg of Rocuronium, 23 at the lip size 7.5. Vitals 109/68 pulse 76 O2 97% . pt has bear hugger placed.
[2022-03-02 03:47] LABS: Free T4 (Free Thyroxine) 0.71 ng/dL (0.71-1.85)
[2022-03-02 04:02] LABS: Calcium Oxalate Crystals Urine Present; UACC Culture Trigger YES; WBC Urine >50 /HPF (0-5)
[2022-03-02 04:03] LABS: Bacteria Urine 1+ (None Seen)
--- NOTE | 2022-03-02 04:13 | PC.NURSE ---
upon arrival to ED, approx 0200, pt unresponsive, pupils restricted, only responding to painful stimuli. Temp rectal 94.5. IV placed, labs/blood cultures/urine sent. dumas catheter placed. head CT/chest xray done. on nurse monitoring. O2 100% on nonrebreather, respirations slow and labored, 8 per min. @0310, 20mg Etomidat & 80 mg Rocuronium given, 23 at the lip - size 7.5. Vitals 109/68, pulse 76, O2 97%. pt has bear hugger placed. BP down to 88/54, levod started @0347 @0.05mcg/kg/hr. BP up to 111/74, levofed paused @0353. hanging at bedside if needed. central line being placed by MD Morrow @8973. continuous monitoring in place...
[2022-03-02] MEDS: propofoL 1,000 MG/100 ML VIAL 12.53 MG IVCONT (05:01)
[2022-03-02] MEDS: Ertapenem Sodium 1 GM in 0.9 % Sodium Chloride 50 ML IV (05:29)
--- NOTE | 2022-03-02 06:19 | PC.NURSE ---
Pt extubated by MD Morrow. Pt woke up, breathing on her own over ventilator. Placed in soft wrist restraints for agitation, picking at wires, lines, etc. Will continue to monitor and remove when patient is more awake.
[2022-03-02 07:22] LABS: ABG Refer to POC result
[2022-03-02 07:22] LABS: ABG HCO3 28 mmol/L (22-26); ABG pCO2 57 mmHg (32-45); ABG pH 7.29 (7.35-7.45); ABG pO2 108 mmHg (83-108)
--- NOTE | 2022-03-02 07:45 | PC.NURSE ---
placed on bipap for 20 minutes. plan to recheck ABG and discuss intubation.
[2022-03-02 08:18] LABS: ABG Base Excess -3.5 mmol/L; ABG HCO3 22 mmol/L (22-26); ABG pCO2 40 mmHg (32-45); ABG pH 7.33 (7.35-7.45); ABG pO2 82 mmHg (83-108)
--- NOTE | 2022-03-02 08:18 | PC.NURSE ---
pt spontaneously opening eyes, vss, levophed at 0.13 at this time
--- NOTE | 2022-03-02 09:27 | PC.NURSE ---
continued bipap. pt tolerating well.
[2022-03-02] MEDS: vancomycin HCL 1,500 MG in 0.9 % Sodium Chloride 500 ML 333.33 MG IV (10:23)
[2022-03-02] MEDS: Heparin Sodium,Porcine 5,000 UNIT/ML VIAL 5000 UNIT SUBCUT ×2 (10:24→16:33)
[2022-03-02 10:38] LABS: ABG Refer to POC result
--- NOTE | 2022-03-02 11:01 | PHA.MEDREC ---
Pharmacy Consult ? Medication Reconciliation Pharmacy has completed the medication reconciliation. List obtained from previous admission 02/11/22
--- NOTE | 2022-03-02 11:27 | PC.NURSE ---
pt yelling out- bipap removed. 2l on oxymask. pt keeps saying help theres a blueberry on my lap! ramos stopped at this time as well.
--- NOTE | 2022-03-02 11:49 | PC.NURSE ---
ABRAHAM DOWN TO SEE PT. OK WITH O2 sat 87-92% no higher.
--- NOTE | 2022-03-02 12:36 | P.HPCC_ITS ---
History of Present Illness Date of Service: 03/02/22 Chief Complaint: Lethargy 61-year-old lady with underlying history of multiple sclerosis with left hemiparesis, seizure disorder, physical deconditioning, DANILO, COPD, history of ESBL UTI admitted on 03/02/2022 with acute acute hypercapnic respiratory failure and ESBL UTI, initially requiring ventilatory support, extubated and emergency room, again requiring BiPAP support, and brief vasopressor support. Started on broad-spectrum antibiotics and admitted to intensive care unit. Review of Systems Review of Systems: Yes Unobtainable due to mental condition and Unobtainable due to mental status [facility] Past Medical History Medical History (Updated 03/02/22 @ 12:40 by Donell Welch MD) Adult failure to thrive Bacteriuria COPD (chronic obstructive pulmonary disease) Diabetes Femoral distal fracture Fracture of left tibial plateau Frequent falls Gram-positive cocci bacteremia Hemiparesis of left nondominant side Hyperlipidemia Hypertension Left hemiparesis Left humeral fracture Multiple sclerosis Multiple sclerosis NSTEMI (non-ST elevated myocardial infarction) Physical deconditioning Physical deconditioning Polysubstance abuse Pyuria Seizure disorder Urinary retention UTI (urinary tract infection) UTI (urinary tract infection) UTI (urinary tract infection) Weakness Weakness Family History Family History Other Adopted Surgical History Surgical History No pertinent past surgical history Social History Social History Household Members: Spouse Housing: House Do you presently have visiting nurse or other home services: Yes Alcohol intake: never Patient Tobacco Use Status: Current everyday Tobacco user Tobacco use type: Cigarette Cigarette Packs Per Day: 0.5 Cigarettes Per Day: 1 Second Hand Smoke Exposure: No Substance Use Type: Opiates Advance Directives: Yes Advance Directives on File: Yes Advance Directives Date on File: 04/10/20 service: No Current occupational status: retired and disabled Meds Allergies Allergy/AdvReac Type Severity Reaction Status Date / Time No Known Allergies Allergy Verified 04/18/20 09:07 Active Medications: Current Medications Heparin Sodium (Porcine) (Heparin Sodium,Porcine 5,000 Unit/Ml Vial) 5,000 unit SUBCUT Q8H [facility] Last Admin: 03/02/22 10:24 Dose: 5,000 unit Norepinephrine Bitartrate (Levophed) 8 mg in 250 mls @ 0 mls/hr IVCONT .Q0M ANN; Protocol Last Titration: 03/02/22 11:26 Dose: 0 mcg/kg/min, 0 mls/hr Propofol (Diprivan) 1,000 mg in 100 mls @ 0 mls/hr IVCONT .Q0M ANN; Protocol Last Titration: 03/02/22 05:28 Dose: 0 mcg/kg/min, 0 mls/hr Home Medications Medication Instructions Recorded Confirmed Last Taken Type aspirin 81 mg chewable tablet 81 mg PO DAILY 02/11/22 03/02/22 Unknown History baclofen 20 mg tablet 20 mg PO BEDTIME 02/11/22 03/02/22 Unknown History baclofen 20 mg tablet 20 mg PO QID 02/11/22 03/02/22 Unknown History carisoprodol 350 mg tablet 350 mg PO TID PRN Muscle Spasm 02/11/22 03/02/22 Unknown History diazepam 10 mg tablet 10 mg PO BEDTIME 02/11/22 03/02/22 Unknown History simvastatin 40 mg tablet 40 mg PO BEDTIME 02/11/22 03/02/22 Unknown History zolpidem 10 mg tablet 10 mg PO BEDTIME 02/11/22 03/02/22 Unknown History Physical Exam Vital Signs: Vital Signs: Last Vital Signs Temp 99.0 F 03/02/22 11:14 Pulse 115 H 03/02/22 11:14 Resp 20 03/02/22 11:14 BP 117/78 03/02/22 11:14 Pulse Ox 95 03/02/22 11:50 O2 Del Method 03/02/22 11:50 O2 Flow Rate 3 03/02/22 07:29 FiO2 80 03/02/22 03:59 Oxygen Flow Rate 15 03/02/22 02:17 BMI result Body Mass Index 26.3 Const: General: no acute distress and lethargic (Arousable) Orientation/consciousness: lethargic (Arousable) Eyes: Sclerae: sclerae normal EOM: EOMs intact bilaterally Neck: Neck: Yes no lymphadenopathy, Yes trachea midline and Yes supple Resp: Effort & Inspection: normal respiratory effort and no respiratory distress Auscultation: clear to auscultation bilaterally Cardio: Rate: tachycardic Rhythm: regular rhythm Heart sounds: no gallops, no murmurs and no rubs GI: Palpation (GI): Soft to palpation and Other GI palpation findings present ( Nontender) Auscultation: normal bowel sounds Extrem: General: No clubbing, No cyanosis and Yes edema (Trace bilateral) Results Labs CBC and Chem 7: 03/02/22 02:14 03/02/22 02:14 Labs: Laboratory Results - last 24 hr 03/02/22 03/02/22 03/02/22 02:14 02:14 02:14 MCV 93.5 MCH 29.9 MCHC 32.0 RDW 13.4 Plt Count 329 MPV 9.7 Immature Gran % (Auto) 0.3 Neut % (Auto) 78.0 H Lymph % (Auto) 10.1 L [place] % (Auto) 8.3 Eos % (Auto) 2.8 Baso % (Auto) 0.5 Lymph # (Auto) 0.4 L [place] # (Auto) 0.3 Eos # (Auto) 0.1 Baso # (Auto) 0.0 Abs Immat Gran (auto) 0.01 Absolute Neuts (auto) 3.1 Absolute Nucleated RBC 0.000 Nucleated RBC % (auto) 0.0 PT 10.5 INR 0.9 O2 Saturation ABG pH at Pt Temp ABG pCO2 at Pt Temp ABG pO2 at Pt Temp ABG HCO3 ABG Base Excess (Actual) VBG pH VBG pCO2 VBG pO2 VBG HCO3 VBG O2 Saturation VBG Base Excess Anion Gap 14 Estim Creat Clear Calc 108.2 Estimated GFR > 60 POC Glucose Random Glucose 117 H Lactic Acid Calcium 9.2 Magnesium 2.4 Total Bilirubin < 0.2 Direct Bilirubin < 0.2 AST 13 ALT 15 Alkaline Phosphatase 80 D Ammonia B-Natriuretic Peptide Total Protein 6.3 L Albumin 3.9 Lipase 28 TSH Free T4 Urine Color Urine Appearance Urine pH Ur Specific [place] Urine Protein Urine Glucose (UA) Urine Ketones Urine Blood Urine Nitrite Ur Leukocyte Esterase Urine RBC Urine WBC Ur Squamous Epith Cells Calcium Oxalate Crystal Urine Bacteria Hyaline Casts Urine Opiates Screen Urine Fentanyl Screen Ur Barbiturates Screen Ur Phencyclidine Scrn Ur Amphetamines Screen U Benzodiazepines Scrn Urine Cocaine Screen U Marijuana (THC) Screen Ethyl Alcohol COVID-19 (ALESSANDRA) COVID-19 Clin Com 03/02/22 03/02/22 03/02/22 02:14 02:15 02:19 MCV MCH MCHC RDW Plt Count MPV Immature Gran % (Auto) Neut % (Auto) Lymph % (Auto) [place] % (Auto) Eos % (Auto) Baso % (Auto) Lymph # (Auto) [place] # (Auto) Eos # (Auto) Baso # (Auto) Abs Immat Gran (auto) Absolute Neuts (auto) Absolute Nucleated RBC Nucleated RBC % (auto) PT INR O2 Saturation ABG pH at Pt Temp ABG pCO2 at Pt Temp ABG pO2 at Pt Temp ABG HCO3 ABG Base Excess (Actual) VBG pH 7.37 VBG pCO2 49 VBG pO2 220 VBG HCO3 29 H VBG O2 Saturation 100.0 VBG Base Excess 2.9 Anion Gap Estim Creat Clear Calc Estimated GFR POC Glucose Random Glucose Lactic Acid Calcium Magnesium Total Bilirubin Direct Bilirubin AST ALT Alkaline Phosphatase Ammonia B-Natriuretic Peptide < 10 Total Protein Albumin Lipase TSH 0.30 L Free T4 0.71 Urine Color Urine Appearance Urine pH Ur Specific [place] Urine Protein Urine Glucose (UA) Urine Ketones Urine Blood Urine Nitrite Ur Leukocyte Esterase Urine RBC Urine WBC Ur Squamous Epith Cells Calcium Oxalate Crystal Urine Bacteria Hyaline Casts Urine Opiates Screen Urine Fentanyl Screen Ur Barbiturates Screen Ur Phencyclidine Scrn Ur Amphetamines Screen U Benzodiazepines Scrn Urine Cocaine Screen U Marijuana (THC) Screen Ethyl Alcohol < 10 COVID-19 (ALESSANDRA) COVID-19 Clin Com 03/02/22 03/02/22 03/02/22 02:51 02:51 02:52 MCV MCH MCHC RDW Plt Count MPV Immature Gran % (Auto) Neut % (Auto) Lymph % (Auto) [place] % (Auto) Eos % (Auto) Baso % (Auto) Lymph # (Auto) [place] # (Auto) Eos # (Auto) Baso # (Auto) Abs Immat Gran (auto) Absolute Neuts (auto) Absolute Nucleated RBC Nucleated RBC % (auto) PT INR O2 Saturation ABG pH at Pt Temp ABG pCO2 at Pt Temp ABG pO2 at Pt Temp ABG HCO3 ABG Base Excess (Actual) VBG pH VBG pCO2 VBG pO2 VBG HCO3 VBG O2 Saturation VBG Base Excess Anion Gap Estim Creat Clear Calc Estimated GFR POC Glucose Random Glucose Lactic Acid 1.2 Calcium Magnesium Total Bilirubin Direct Bilirubin AST ALT Alkaline Phosphatase Ammonia 34 B-Natriuretic Peptide Total Protein Albumin Lipase TSH Free T4 Urine Color Urine Appearance Urine pH Ur Specific [place] Urine Protein Urine Glucose (UA) Urine Ketones Urine Blood Urine Nitrite Ur Leukocyte Esterase Urine RBC Urine WBC Ur Squamous Epith Cells Calcium Oxalate Crystal Urine Bacteria Hyaline Casts Urine Opiates Screen Urine Fentanyl Screen Ur Barbiturates Screen Ur Phencyclidine Scrn Ur Amphetamines Screen U Benzodiazepines Scrn Urine Cocaine Screen U Marijuana (THC) Screen Ethyl Alcohol COVID-19 (ALESSANDRA) Negative COVID-19 Clin Com See Note 03/02/22 03/02/22 03/02/22 03:13 07:15 08:13 MCV MCH MCHC RDW Plt Count MPV Immature Gran % (Auto) Neut % (Auto) Lymph % (Auto) [place] % (Auto) Eos % (Auto) Baso % (Auto) Lymph # (Auto) [place] # (Auto) Eos # (Auto) Baso # (Auto) Abs Immat Gran (auto) Absolute Neuts (auto) Absolute Nucleated RBC Nucleated RBC % (auto) PT INR O2 Saturation 97.0 95.0 ABG pH at Pt Temp 7.29 L 7.33 L ABG pCO2 at Pt Temp 57 H 40 ABG pO2 at Pt Temp 108 82 L ABG HCO3 28 H 22 ABG Base Excess (Actual) 1.0 -3.5 VBG pH VBG pCO2 VBG pO2 VBG HCO3 VBG O2 Saturation VBG Base Excess Anion Gap Estim Creat Clear Calc Estimated GFR POC Glucose 125 H Random Glucose Lactic Acid Calcium Magnesium Total Bilirubin Direct Bilirubin AST ALT Alkaline Phosphatase Ammonia B-Natriuretic Peptide Total Protein Albumin Lipase TSH Free T4 Urine Color Urine Appearance Urine pH Ur Specific [place] Urine Protein Urine Glucose (UA) Urine Ketones Urine Blood Urine Nitrite Ur Leukocyte Esterase Urine RBC Urine WBC Ur Squamous Epith Cells Calcium Oxalate Crystal Urine Bacteria Hyaline Casts Urine Opiates Screen Urine Fentanyl Screen Ur Barbiturates Screen Ur Phencyclidine Scrn Ur Amphetamines Screen U Benzodiazepines Scrn Urine Cocaine Screen U Marijuana (THC) Screen Ethyl Alcohol COVID-19 (ALESSANDRA) COVID-19 Clin Com 03/02/22 03/02/22 Unknown Unknown MCV MCH MCHC RDW Plt Count MPV Immature Gran % (Auto) Neut % (Auto) Lymph % (Auto) [place] % (Auto) Eos % (Auto) Baso % (Auto) Lymph # (Auto) [place] # (Auto) Eos # (Auto) Baso # (Auto) Abs Immat Gran (auto) Absolute Neuts (auto) Absolute Nucleated RBC Nucleated RBC % (auto) PT INR O2 Saturation ABG pH at Pt Temp ABG pCO2 at Pt Temp ABG pO2 at Pt Temp ABG HCO3 ABG Base Excess (Actual) VBG pH VBG pCO2 VBG pO2 VBG HCO3 VBG O2 Saturation VBG Base Excess Anion Gap Estim Creat Clear Calc Estimated GFR POC Glucose Random Glucose Lactic Acid Calcium Magnesium Total Bilirubin Direct Bilirubin AST ALT Alkaline Phosphatase Ammonia B-Natriuretic Peptide Total Protein Albumin Lipase TSH Free T4 Urine Color Yellow Urine Appearance Cloudy Urine pH 6.0 Ur Specific [place] 1.015 Urine Protein Trace Urine Glucose (UA) Negative Urine Ketones Negative Urine Blood Trace H Urine Nitrite Positive H Ur Leukocyte Esterase Large (3+) H Urine RBC 3-5 H Urine WBC >50 H Ur Squamous Epith Cells 6-10 Calcium Oxalate Crystal Present Urine Bacteria 1+ Hyaline Casts 3-5 Urine Opiates Screen Not Detected Urine Fentanyl Screen Not Detected Ur Barbiturates Screen Not Detected Ur Phencyclidine Scrn Not Detected Ur Amphetamines Screen Not Detected U Benzodiazepines Scrn POSITIVE H Urine Cocaine Screen Not Detected U Marijuana (THC) Screen Not Detected Ethyl Alcohol COVID-19 (ALESSANDRA) COVID-19 Clin Com Imaging Radiologist's Impressions: Impressions Head CT 03/02/22 02:20 IMPRESSION: No acute intracranial pathology. Chest X-Ray 03/02/22 02:30 IMPRESSION: Clear lungs. Abdomen/Pelvis CT 03/02/22 06:57 IMPRESSION: 1. A clear source of infection is not identified in the chest, abdomen, and pelvis. There is subsegmental atelectasis in the left lower lobe. A small focus of superimposed consolidation in this region is possible, though not favored. 2. Focal subcutaneous fat stranding overlying the left ischial tuberosity which may correspond to a developing pressure sore. No subcutaneous gas or underlying osseous abnormalities. 3. Relative narrowing of the trachea and mainstem bronchus on this expiratory study. This raises the possibility of tracheobronchomalacia, though is not diagnostic in the absence of a comparison inspiratory study. 4. Colonic diverticulosis without evidence of acute diverticulitis. Chest CT 03/02/22 06:57 IMPRESSION: 1. A clear source of infection is not identified in the chest, abdomen, and pelvis. There is subsegmental atelectasis in the left lower lobe. A small focus of superimposed consolidation in this region is possible, though not favored. 2. Focal subcutaneous fat stranding overlying the left ischial tuberosity which may correspond to a developing pressure sore. No subcutaneous gas or underlying osseous abnormalities. 3. Relative narrowing of the trachea and mainstem bronchus on this expiratory study. This raises the possibility of tracheobronchomalacia, though is not diagnostic in the absence of a comparison inspiratory study. 4. Colonic diverticulosis without evidence of acute diverticulitis. Assessment and Plan (1) Encephalopathy: Status: Acute (2) Gram-negative bacteremia: Status: Acute (3) COPD (chronic obstructive pulmonary disease): Status: Acute (4) Diabetes: Status: Acute (5) Multiple sclerosis: Status: Acute (6) Hemiparesis of left nondominant side: Status: Acute (7) Acute respiratory failure with hypercapnia: Status: Acute Plan Assessment: 61-year-old lady with underlying MS admitted with acute hypercapnic respiratory failure and suspected ESBL bacteremia briefly requiring ventilatory and vasopressor support. Plan: Neuro: Acute metabolic encephalopathy likely secondary to CO2 narcosis, improved with BiPAP. Continue to monitor clinically. Underlying history of multiple sclerosis. Cardiac: Titrated off other pressors. Pulmonary: No acute issues. Renal: No acute issues. Endo: No acute issues. GI: No acute issues. ID: Suspected ESBL UTI/bacteremia, started on broad-spectrum antibiotics. Heme/Onc: No acute issues. Psych: No acute issues. Miscellaneous: No acute issues. Prophylaxis: heparin Diet: NPO Critical care time spent: 60 minutes
--- NOTE | 2022-03-02 13:20 | PHA.PROG ---
Admission Date/Time: March 02, 2022 08:38 Indication: Bacteremia/ESBL Weight in k.6 kg Adjusted body weight in Kg: [place] body weight in Kg: Obesity Dosing Indication % IBW: Serum Creatinine - Last 168 Hours 03/02/22 02:14 Creatinine 0.55 Estimated CrCl and GFR - Last 168 Hours 03/02/22 02:14 Estim Creat Clear Calc 108.2 Estimated GFR > 60 Vancomycin Loading Dose: 1500mg X 1 Current Vancomycin Dosing Regimen: 1000mg Q12H Vancomycin Monitoring using AUC goal of 400 - 600 range with trough as surrogate marker: 458mg/L Date and Time for next Vancomycin Level to be drawn: 03/03/22 @1999 Pharmacist Comments on Vancomycin Plan: Vancomycin dosing will take advantage of [employer] as a clinical decision support tool that uses Bayesian modeling to calculate individual patient's pharmacokinetic parameters and forecast the patient's drug concentration time course with the target goal AUC 24 range of 400 - 600 mg/L/hr.
[2022-03-02 14:28] LABS: ABG Base Excess -1.2 mmol/L; ABG HCO3 23 mmol/L (22-26); ABG pCO2 39 mmHg (32-45); ABG pH 7.38 (7.35-7.45); ABG pO2 68 mmHg (83-108)
[2022-03-02] MEDS: Nystatin Powder 15 GM BOTTLE 1 APPL TOPICAL ×2 (14:51→22:48)
--- NOTE | 2022-03-02 15:18 | PM.EVENT ---
Event Note Date of Service: 03/02/22 Event Note: 61-year-old woman admitted by ICU yesterday with acute hypercapnic respiratory failure and ESBL UTI with sepsis. She initially required intubation in the ED and was subsequently extubated in the ED. However she was given more oxygen and continued to retain. Therefore transferred to the ICU and started on BiPAP and she required brief is a pressor support. She was started on broad-spectrum antibiotics including vancomycin and meropenem due to recent ESBL UTI. At this time she seems hemodynamically stable. Plans to transfer to medical floor. Discussed with Dr. Olmedo. History of ESBL UTI Started on broad-spectrum antibiotics including vancomycin and meropenem Follow blood and urine cultures ID consult Hypercapnic respiratory failure, acute Required ventilator support while in the ER, subsequently transferred to the ICU and required BiPAP Hemodynamically stable at this time Avoid over oxygenation History of multiple sclerosis On baclofen, Soma and diazepam Hyperlipidemia Continue aspirin and statin Hypertension Low blood pressures Avoid antihypertensive medications at this time Diabetes mellitus Sliding scale, ADA diet History of coronary artery disease Aspirin and statin COPD Without exacerbation
[2022-03-02 16:15] LABS: ABG Refer to POC result
--- NOTE | 2022-03-02 18:23 | PC.NURSE ---
This RN trailed removal of non-behavioral soft wrist restraints upon transfer from ICU to [facility] 17:30. Pt was observed for 30 minutes with no pulling of medical lines. Camera was placed in pt room with VMT to monitor for medical line safety, perihperal IV to right arm wrapped. Provider aware.
[2022-03-02] MEDS: vancomycin HCL 1,000 MG in 0.9 % Sodium Chloride 250 ML 270 MG IV (22:46)
[2022-03-03 02:55] VITALS: BP 106/65; PULSE 81; RESP 18; TEMP 36.4; O2SAT 96
[2022-03-03 06:11] LABS: MANUAL DIFF FLAG NO
[2022-03-03 06:21] LABS: Basophils Percent Auto 0.4 % (0-2); Eosinophils Absolute Auto 0.1 X10*3/uL (0.0-0.4); Eosinophils Percent Auto 1.5 % (0-4); Hematocrit 34.9 % (37.0-47.0); Hemoglobin 11.2 g/dl (12.0-16.0); Imm Gran Abs Auto 0.02 X10*3/uL (0.00-0.03); Imm Gran Pct Auto 0.4 % (0.0-0.4); Lymphocytes Absolute Auto 0.6 X10*3/uL (1.2-4.9); Lymphocytes Percent Auto 10.6 % (20-40); Mean Corpuscular HGB Conc 32.1 g/dl (31.0-35.0); Mean Corpuscular Hemoglobin 30.4 pg (27.0-33.0); Mean Corpuscular Volume 94.6 fL (80.0-98.0); Mean Platelet Volume 9.4 fL (9.4-12.3); Monocytes Absolute Auto 0.4 X10*3/uL (0.1-1.2); Monocytes Percent Auto 7.3 % (2-11); Neutrophils Absolute Auto 4.3 x10*3/uL (2.0-8.3); Neutrophils Percent Auto 79.8 % (45-73); Platelet Count 264 X10*3/uL (160-400); Red Blood Count 3.69 X10*6/uL (4.20-5.50); Red Cell Distribution Width 13.5 % (11.0-16.0); White Blood Count 5.4 X10*3/uL (4.8-10.8)
[2022-03-03 06:28] LABS: VBG Base Excess -0.2 mmol/L; VBG HCO3 25 mmol/L (22-26); VBG pCO2 43 mmHg; VBG pH 7.36 (7.32-7.43); VBG pO2 51 mmHg
[2022-03-03 06:28] LABS: Venous Blood Gas Refer to POC result
[2022-03-03 06:47] LABS: Alanine Aminotransferase 15 U/L (0-31); Albumin Level 3.3 g/dL (3.5-5.0); Alkaline Phosphatase 74 U/L (39-117); Anion Gap 12 (12-20); Aspartate Amino Transferase 15 U/L (5-31); Bilirubin Total < 0.2 mg/dL (0.0-1.0); Blood Urea Nitrogen 4 mg/dL (9-16); Calcium 8.1 mg/dL (8.4-10.2); Carbon Dioxide 25 mmol/L (22-29); Chloride 104 mmol/L (96-108); Estimated Glomerular Filt Rate > 60; Glucose Random 96 mg/dL (60-115); Magnesium 1.7 mg/dL (1.6-2.6); Phosphorus 3.1 mg/dL (2.7-4.5); Potassium 3.5 mmol/L (3.3-5.1); Sodium 137 mmol/L (135-145); Total Protein 5.5 g/dL (6.5-8.0)
[2022-03-03 07:33] VITALS: BP 110/54; PULSE 91; RESP 20; TEMP 36.8; O2SAT 93
[2022-03-03] MEDS: Nystatin Powder 15 GM BOTTLE 1 APPL TOPICAL ×2 (08:45→20:25)
--- NOTE | 2022-03-03 09:42 | MHC.CM.PN ---
CM met with Patient at bedside and addressed IMM with her, providing her with the original and placing a copy on the chart. Patient lives in a house with her /HCP/Otoniel, who is also w/c bound and the 2 assist each other as much as possible. Patient is interested in a new referral to [facility]; home new [facility] is the goal and CM has initiated and will follow for dc planning.Patient transfers from w/c and recliner to her scooter. Patient has received Moderna/Covid vax X2 and her PCP is Dr. Marte.
[2022-03-03] MEDS: vancomycin HCL 1,000 MG in 0.9 % Sodium Chloride 250 ML 270 MG IV ×2 (10:15→11:25)
[2022-03-03 11:18] VITALS: BP 122/62; PULSE 100; RESP 20; TEMP 36.9; O2SAT 93
--- NOTE | 2022-03-03 13:33 | P.PNIM_ITS ---
Subjective Subjective Date of Service: 03/03/22 Review of Systems Follow-up ICU transfer, acute respiratory failure, ESBL UTI Feeling better, chronic weakness due to MS Denies chest pain, shortness breath, nausea, vomiting, diarrhea Physical Exam Vital Signs: Vital Signs: Last Vital Signs Temp 98.4 F 03/03/22 11:18 Pulse 100 03/03/22 11:18 Resp 20 03/03/22 11:18 BP 122/62 03/03/22 11:18 Pulse Ox 93 03/03/22 11:18 O2 Del Method 03/03/22 11:18 O2 Flow Rate 3 03/02/22 07:29 FiO2 80 03/02/22 03:59 Oxygen Flow Rate 15 03/02/22 02:17 BMI result Body Mass Index 26.3 Appearing in no acute distress lung sounds are clear to auscultation heart regular rate rhythm, clear S1, S2 positive bowel sounds, abdomen is soft, nontender neuro patient is alert x3, no focal deficits a chronic weakness, left-sided due to MS Objective Data Active Medications Aspirin (Aspirin 81 Mg Tab.Chew) 81 mg PO DAILY ANN Baclofen (Baclofen 20 Mg Tablet) 20 mg PO BEDTIME ANN Baclofen (Baclofen 20 Mg Tablet) 20 mg PO QID ANN Carisoprodol (Carisoprodol 350 Mg Tablet) 350 mg PO TID PRN PRN Reason: Muscle Spasm Heparin Sodium (Porcine) (Heparin Sodium,Porcine 5,000 Unit/Ml Vial) 5,000 unit SUBCUT Q8H [facility] Last Admin: 03/03/22 08:46 Dose: Not Given Documented By: BETSY Non-Admin Reason: Patient Refused Meropenem 1 gm/ Sodium (Chloride) 100 mls @ 200 mls/hr IV Q8H [facility] Last Infusion: 03/03/22 08:38 Dose: 0 mls/hr Documented By: BETSY Vancomycin HCl 1,000 mg/ (Sodium Chloride) 270 mls @ 270 mls/hr IV Q12H [facility] Last Infusion: 03/03/22 12:34 Dose: 0 mls/hr Documented By: BETSY Non-Formulary Medication (Diazepam) 10 mg PO BEDTIME [facility] Non-Formulary Medication (Simvastatin) 40 mg PO BEDTIME [facility] Nystatin (Nystatin Powder 15 Gm Bottle) 1 appl TOPICAL TID [facility]; Protocol Last Admin: 03/03/22 08:45 Dose: 1 appl Documented By: BESTY Pharmacy Consult (Consult Rx Vancomycin Dosing) 1 each MISCELLANE DAILY PRN PRN Reason: Consult order Zolpidem Tartrate (Zolpidem Tartrate 5 Mg Tablet) 10 mg PO BEDTIME [facility] Labs CBC & Chem 7: 03/03/22 06:04 03/03/22 06:04 Labs: Laboratory Results - last 24 hr 03/02/22 03/03/22 03/03/22 14:23 06:04 06:04 MCV 94.6 MCH 30.4 MCHC 32.1 RDW 13.5 Plt Count 264 MPV 9.4 Immature Gran % (Auto) 0.4 Neut % (Auto) 79.8 H Lymph % (Auto) 10.6 L Bollinger % (Auto) 7.3 Eos % (Auto) 1.5 Baso % (Auto) 0.4 Lymph # (Auto) 0.6 L Bollinger # (Auto) 0.4 Eos # (Auto) 0.1 Baso # (Auto) 0.0 Abs Immat Gran (auto) 0.02 Absolute Neuts (auto) 4.3 Absolute Nucleated RBC 0.000 Nucleated RBC % (auto) 0.0 O2 Saturation 93.0 ABG pH at Pt Temp 7.38 ABG pCO2 at Pt Temp 39 ABG pO2 at Pt Temp 68 L ABG HCO3 23 ABG Base Excess (Actual) -1.2 VBG pH VBG pCO2 VBG pO2 VBG HCO3 VBG O2 Saturation VBG Base Excess Anion Gap 12 Estim Creat Clear Calc 104.0 Estimated GFR > 60 Random Glucose 96 Calcium 8.1 L D Phosphorus 3.1 Magnesium 1.7 Total Bilirubin < 0.2 AST 15 ALT 15 Alkaline Phosphatase 74 Total Protein 5.5 L Albumin 3.3 L 03/03/22 06:11 MCV MCH MCHC RDW Plt Count MPV Immature Gran % (Auto) Neut % (Auto) Lymph % (Auto) Bollinger % (Auto) Eos % (Auto) Baso % (Auto) Lymph # (Auto) Bollinger # (Auto) Eos # (Auto) Baso # (Auto) Abs Immat Gran (auto) Absolute Neuts (auto) Absolute Nucleated RBC Nucleated RBC % (auto) O2 Saturation ABG pH at Pt Temp ABG pCO2 at Pt Temp ABG pO2 at Pt Temp ABG HCO3 ABG Base Excess (Actual) VBG pH 7.36 VBG pCO2 43 VBG pO2 51 VBG HCO3 25 VBG O2 Saturation 79.0 VBG Base Excess -0.2 Anion Gap Estim Creat Clear Calc Estimated GFR Random Glucose Calcium Phosphorus Magnesium Total Bilirubin AST ALT Alkaline Phosphatase Total Protein Albumin Microbiology Microbiology Results: Microbiology 03/02/22 00:00 Urine Culture - Preliminary Urine Catheterized - Marshall Catheter Culture in progress. 03/02/22 02:51 Blood Culture - Preliminary Blood - Venous No growth after 24 hours. 03/02/22 02:14 Blood Culture - Preliminary Blood - Venous No growth after 24 hours. Assessment and Plan (1) Acute respiratory failure with hypercapnia: Status: Acute Plan 61-year-old woman admitted by ICU yesterday with acute hypercapnic respiratory failure and ESBL UTI with sepsis.? She initially required intubation in the ED and was subsequently extubated in the ED.? However she was given more oxygen and continued to retain.? Therefore transferred to the ICU and started on BiPAP and she required brief is a pressor support.? She was started on broad-spectrum antibiotics including vancomycin and meropenem due to recent ESBL UTI.? At this time she seems hemodynamically stable.? Plans to transfer to medical floor.? Discussed with Dr. Olmedo. E coli ESBL UTI Started on broad-spectrum antibiotics vancomycin and meropenem, will stop vancomycin Follow blood and urine cultures ID consult Hypercapnic respiratory failure, acute Required ventilator support while in the ER, subsequently transferred to the ICU and required BiPAP Hemodynamically stable at this time Avoid over oxygenation History of multiple sclerosis On baclofen, Soma and diazepam Hyperlipidemia Continue aspirin and statin Hypertension Low blood pressures Avoid antihypertensive medications at this time Diabetes mellitus Sliding scale, ADA diet History of coronary artery disease Aspirin and statin COPD Without exacerbation DVT prophylaxis with heparin Attending Dr. Perez Full code Continue hospitalization for treatment of ESBL UTI and acute respiratory failure Quality Stroke Does the patient have a stroke diagnosis?: No VTE Prior VTE?: No VTE Risk Level:: Medical - moderate - high VTE Device Contraindication: Treatment Not Indicated VTE Drug Contraindication: N/A - Med Ordered
--- NOTE | 2022-03-03 14:12 | MHC.SL.SWA ---
Speech Pathologist Impression: Risk of Aspiration Due to: Neurological Condition Dysphasia Diet Status: Mild oral phase dysphagia. Recommend diet of REGULAR consistencies with THIN liquids (by straw), pills whole in puree. Liquid Consistency and Strategies for Safe Swallow: Liquid Intake Recommendation: Thin Liquid Intake Strategies: Small Sips Solid Food Consistency: Dietary Recommendations: Regular Additional Modifications to Solid Foods: Monitor for impulsivity. Alternate liquids and solids. Patient has L hemiparesis, will need help with setting up tray, assuring that patient can access all food and drink items. Oral Medication Intake: Whole with Puree Please contact the pharmacy regarding appropriate crushable or liquid drug formulations that are available whenever modified delivery is recommended. Compensatory Strategies and Precautions to be Taken for Safe Swallow: Sitting Upright (90 deg) Liquids from Straw Small Bites and Sips Alternate Liquids/Solids Supervision While Eating and Drinking for Safe Swallow: Intermittent Supervision Foods to Avoid: Swallowing Recommended Treatments: Compens. Strategy Educat. Recommendation for Speech: Inpatient Speech Therapy Comment: Patient presents with a mild oral phase dysphagia due to mild lingual weakness. Patient tolerated thin liquids by straw well, tolerated all food consistencies, although evidenced some mild oral residual on ground and regular solids, cleared by sip of liquid. Recommend START Patient will need assistance with tray set up due to L hemiparesis, and should be monitored as she evidenced some mild impulsivity. Diet recommendations communicated by secure text to LEXI MONTAGUE, given in person to Nursing. [facility] will follow for toleration of diet, 1-2X f/u. Frequency/Duration: 1-2 f/u Date Range for Service Req: Timeline to reassess: Sow Manager Clinican/Clinical Fellow: No Supervisory Statement: I have reviewed and agree with the student/clinical fellow's documentation: N/A Speech Language Pathologist: Anny Vang M.A., [facility]
[2022-03-03 15:40] VITALS: BP 154/74; PULSE 110; RESP 17; TEMP 37.2; O2SAT 95
[2022-03-03] MEDS: Baclofen 20 MG TABLET PO ×3 (17:06→21:35)
[2022-03-03] MEDS: Heparin Sodium,Porcine 5,000 UNIT/ML VIAL 5000 UNIT SUBCUT (17:06)
[2022-03-03 18:27] VITALS: BP 133/59; PULSE 106; RESP 17; TEMP 36.9; O2SAT 96
[2022-03-03] MEDS: Zolpidem Tartrate 5 MG TABLET PO (20:24)
[2022-03-03] MEDS: Atorvastatin Calcium 20 MG TABLET PO (20:24)
[2022-03-03] MEDS: diazePAM 5 MG TABLET 10 MG PO (20:24)
[2022-03-04] VITALS: BP 130/60; PULSE 101; RESP 20; TEMP 37.7; O2SAT 92
[2022-03-04] MEDS: Heparin Sodium,Porcine 5,000 UNIT/ML VIAL 5000 UNIT SUBCUT ×2 (01:40→09:10)
[2022-03-04 04:00] VITALS: BP 132/63; PULSE 94; RESP 16; TEMP 37.7; O2SAT 91
[2022-03-04 08:00] VITALS: BP 150/78; PULSE 96; RESP 20; TEMP 36.9; O2SAT 93
[2022-03-04 08:08] LABS: Anion Gap 11 (12-20); Blood Urea Nitrogen 4 mg/dL (9-16); Calcium 8.5 mg/dL (8.4-10.2); Carbon Dioxide 27 mmol/L (22-29); Chloride 108 mmol/L (96-108); Creatinine Clr Calc Pharmacy 96.7; Estimated Glomerular Filt Rate > 60; Glucose Random 111 mg/dL (60-115); Potassium 3.4 mmol/L (3.3-5.1); Sodium 143 mmol/L (135-145)
[2022-03-04] MEDS: Baclofen 20 MG TABLET PO ×2 (09:10→13:25)
[2022-03-04] MEDS: Aspirin 81 MG TAB.CHEW PO (09:10)
[2022-03-04] MEDS: carisoprodoL 350 MG TABLET PO ×2 (09:10→13:34)
[2022-03-04] MEDS: Nystatin Powder 15 GM BOTTLE 1 APPL TOPICAL (09:12)
--- NOTE | 2022-03-04 09:37 | PC.NURSE ---
Patient repositioned and had soft bowel movement. Right triple lumen IJ removed aseptic technique. Patient toelrated well. Patient has fine crackles al throughout, given incentive spirometor and is using it well.
[2022-03-04 11:46] VITALS: BP 150/78; PULSE 96; O2SAT 93
[2022-03-04 12:00] VITALS: BP 141/77; PULSE 82; RESP 16; TEMP 36.7; O2SAT 95
--- NOTE | 2022-03-04 12:31 | MHC.SL.SWA ---
Speech Pathologist Impression: Oral phase dysphagia Risk of Aspiration Due to: Neurological Condition Dysphasia Diet Status: Mild oral phase dysphagia. Once pt is cleared from clear liquid diet, recommend REGULAR consistencies with THIN liquids with aspiration precautions, pills whole in puree. Sent update to , RN, RD via [place] Message. Further ST intervention no longer warranted at this level of care. Please re-refer if AGRICULTURAL ENGINEERING TECHNICIAN can be of further assistance. Liquid Consistency and Strategies for Safe Swallow: Liquid Intake Recommendation: Thin Liquid Intake Strategies: Small Sips Solid Food Consistency: Dietary Recommendations: Regular Additional Modifications to Solid Foods: Monitor for impulsivity. Alternate liquids and solids. Patient has L hemiparesis, will need help with setting up tray, assuring that patient can access all food and drink items. Oral Medication Intake: Whole with Puree Please contact the pharmacy regarding appropriate crushable or liquid drug formulations that are available whenever modified delivery is recommended. Compensatory Strategies and Precautions to be Taken for Safe Swallow: Sitting Upright (90 deg) Small Bites and Sips Alternate Liquids/Solids Rate of Ingestion Change Supervision While Eating and Drinking for Safe Swallow: Intermittent Supervision Swallowing Recommended Treatments: Compens. Strategy Educat. Recommendation for Speech: D/c Floor Runner Clinican/Clinical Fellow: Yes: Opal Garza Supervisory Statement: I have reviewed and agree with the student/clinical fellow's documentation: N/A Speech Language Pathologist: Marly Knutson M.A., CCC-AGRICULTURAL ENGINEERING TECHNICIAN
--- NOTE | 2022-03-04 13:42 | PC.NURSE ---
Patient requesting PRN TID soma early d/t pain. Patient states I take it 3x a day, i dont get up in the middle of the night to take it . Patient repositioned for comfort.
--- NOTE | 2022-03-04 13:55 | P.DS_ITS ---
DS: Providers Provider Date of Service: 03/04/22 Date of admission: 03/02/22 08:38 Primary care physician: Unknown Physician Consults: 03/03/22 15:50 Consult to Infectious Diseases Routine Consulting Provider: Glendy Booth Reason for consultation: ESBL UTI Attending physician on discharge: Sumanth Perez Discharging clinician: Mercedes Jimenez DS: Diagnosis Discharge Diagnosis (1) Acute respiratory failure with hypercapnia: Status: Acute DS: Summary Hospital Course Hospital Course: History and physical as per admitting provider 61-year-old lady with underlying history of multiple sclerosis with left hemiparesis, seizure disorder, physical deconditioning, DANILO, COPD, history of ESBL UTI admitted on 03/02/2022 with acute acute hypercapnic respiratory failure and ESBL UTI, initially requiring ventilatory support, extubated and emergency room, again requiring BiPAP support, and brief vasopressor support.? Started on broad- spectrum antibiotics and admitted to intensive care unit . E coli ESBL UTI Started on broad-spectrum antibiotics vancomycin and meropenem, will stop vancomycin Follow blood and urine cultures ID consult recommend Macrodantin for 10 days Hypercapnic respiratory failure, acute Required ventilator support while in the ER, subsequently transferred to the ICU and required BiPAP Hemodynamically stable at this time Over oxygenation avoided History of multiple sclerosis On baclofen, Soma and diazepam, do not take more than prescribed Hyperlipidemia Continue aspirin and statin Hypertension Low blood pressures during admission, much more stable now Follow blood pressures at home Diabetes mellitus Treated with Sliding scale, ADA diet Continue home medications History of coronary artery disease Continue Aspirin and statin COPD Without exacerbation Continue home medications Time Spent with Patient Time attestation: Total time spent providing and/or coordinating discharge services: Discharge coordination time: Greater than 30 minutes Quality: Safe Use of Opioids Does Pt have an Active Cancer Diagnosis on the Problem List?: No Quality: Stroke Does the patient have a stroke diagnosis?: No Physical Exam Vital Signs: Vital Signs: Last Vital Signs Temp 98.0 F 03/04/22 12:00 Pulse 82 03/04/22 12:00 Resp 16 03/04/22 12:00 BP 141/77 H 03/04/22 12:00 Pulse Ox 95 03/04/22 12:00 O2 Del Method 03/04/22 12:00 O2 Flow Rate 3 03/02/22 07:29 FiO2 80 03/02/22 03:59 Oxygen Flow Rate 15 03/02/22 02:17 BMI result Body Mass Index 26.3 Appearing in no acute distress head is normocephalic atraumatic eyes pupils are PERRLA sclera is anicteric mouth throat mucous membranes are intact and moist neck is supple no lymphadenopathy, no JVD noted lung sounds are clear to auscultation heart regular rate rhythm, clear S1, S2 positive bowel sounds, abdomen is soft, nontender neuro patient is alert x3, no focal deficits Left-sided weakness chronic from multiple sclerosis DS: Data Data Completed and Pending Completed studies during hospitalization [Text1]: Procedures Insertion of Infusion Device into Right Cephalic Vein, Percutaneous Approach (07/13/21) Labs on day of discharge: Laboratory Results - last 24 hr 03/04/22 06:46 Sodium 143 Potassium 3.4 Chloride 108 Carbon Dioxide 27 Anion Gap 11 L BUN 4 L Creatinine 0.57 Estim Creat Clear Calc 96.7 Estimated GFR > 60 Random Glucose 111 Calcium 8.5 Preliminary micro results at discharge 03/02/22 00:00 Urine Culture - Preliminary Urine Catheterized - Marshall Catheter Gram negative frantz 03/02/22 02:51 Blood Culture - Preliminary Blood - Venous No growth after 48 hours. 03/02/22 02:14 Blood Culture - Preliminary Blood - Venous No growth after 48 hours. Discharge Plan Discharge Anticipated Discharge Date/Time: 03/04/22 13:53 Patient Disposition: Home Health Service Discharge Diagnosis: E coli ESBL UTI Hypercapnic respiratory failure Discharge Medications: New nitrofurantoin macrocrystal [Macrodantin] 100 mg capsule 100 mg PO BID Qty: 20 0RF Rx Instructions: must administer with a meal/food Continued carisoprodol 350 mg Tablet 350 mg PO TID PRN (Reason: Muscle Spasm) simvastatin 40 mg Tablet 40 mg PO BEDTIME baclofen 20 mg Tablet 20 mg PO QID baclofen 20 mg Tablet 20 mg PO BEDTIME aspirin 81 mg Tablet,Chewable 81 mg PO DAILY diazepam 10 mg Tablet 10 mg PO BEDTIME zolpidem 10 mg Tablet 10 mg PO BEDTIME clotrimazole 1 % Cream 1 appl topical BID 7 Days Qty: 30 1RF Protocol: Apply to: Apply to: under b/l breasts Discharge Orders: Discharge Order (Routine); Ordered 03/04/22 Ordered By: Mercedes Jimenez Diet: Advance to usual diet Activity on Discharge: As tolerated Stand Alone Forms: Patient Portal Discharge page Care Plan Goals: Avoid taking too much of over sedating medications Health Concerns: E coli ESBL UTI Hypercapnic respiratory failure Plan of Treatment: Take all medications as prescribed Follow-up with primary care provider as needed Assessment: See discharge summary
[2022-03-04 15:11] VITALS: BP 140/69; PULSE 97; RESP 18; TEMP 36.7; O2SAT 94
--- NOTE | 2022-03-04 15:39 | MHC.CM.PN ---
IMM 03/03/22 Female 61 DX Acute Respiratory Failure. Patient is discharged today to home with [facility]. Transportation is booked with [facility] 4:30pm.
--- NOTE | 2022-03-09 08:00 | P.CDIR_ITS ---
Documented by User: Marine Andre RN 03/09/22 08:16 Retrospective Query PHYSICIAN'S DOCUMENTATION REQUEST Date of Query: 03/09/22 08 Patient Name: Shabana Valenzuela Admit Date: 03/02/22 Dear Doctor, A review of the medical record indicates additional documentation may be needed. Please review below and update the documentation accordingly. Clinical Indicators: Documentation on progress note and event note dated 03/02 and 03/03 included the diagnosis of sepsis, but the diagnosis was omitted from the discharge summary. The patient's infectious clinical indicators include: Risk Factors/Clinical Indicators/Treatments POA/TREAT/RESOLVED/RULE OUT Event note & progress note on 03/02 & 03/03: 61-year-old woman admitted by ICU yesterday with acute hypercapnic respiratory failure and ESBL UTI with sepsis. Other indicators: -TEMPS 03/02: 92.1 & 93.0 -Pulse rate 03/02: 115 03/03: 110 -Patient also with diagnosis of metaboli c encephalopathy per provider -Medications: Vancomycin -WBCs 03/02: 4.0 Recognized standard criteria for this condition and other infectious definitions includes: Sepsis Systemic manifestations of infection, with 2 or more SIRS criteria which include: * Fever > 100.4?F or hypothermia < 96.8?F * Leukocytosis ? WBC > 12,000 or leukopenia, WBC < 4,000, or > 10% bands * Tachycardia- > 90 beats/minute * Tachypnea- RR > 20 breaths/minute or PaCO2 < 32mmHg Source: Merck Manual 2013 Documentation should include the known or suspected organism, and the underlying infection, such as UTI or pneumonia Based on the above information and the recognized standard for sepsis, could you please clarify in the Progress Notes if this diagnoses is still accurate and reflective of the patient's condition to ensure quality of the medical record. * Sepsis is/was present and is a clinical diagnosis based on (please include this additional support in the medical record) * After study (the condition) has been ruled out * Other (please specify) * Unable to determine Use of terms such as suspected, likely, concern for, or probable (associated with a specific diagnosis that is being evaluated, monitored, or treated as if it exists) are acceptable and can be coded in the inpatient setting, when documented at the time of discharge. Thank you, Marine Andre MS, RN, CCRN Extension: [phone] Please use your independent medical judgment in providing your response. THIS QUERY IS PART OF THE PERMANENT MEDICAL RECORD Documented by User: Mercedes Jimenez NP 03/09/22 12:37 Retrospective Query Provider Response: Other (condition ruled out )
== END 2022-03-04 16:42 | disposition home health service (06) | DRG 689 ==
LOC: HO.ED 08:44 → HO.EDOVER 08:47 → HO.ICU 11:44 → HO.IMC 15:34
PROVIDERS: Admitting Provider Internal Medicine Pulmonary Disease; Emergency Provider Emergency Medicine; PCP Internal Medicine; Visit Provider Nurse Practitioner Acute Care
DX: N39.0 Urinary tract infection, site not specified (principal); J96.02 Acute respiratory failure with hypercapnia; G81.94 Hemiplegia, unspecified affecting left nondominant side; Z16.12 Extended spectrum beta lactamase (ESBL) resistance; G35 Multiple sclerosis; G47.33 Obstructive sleep apnea (adult) (pediatric); B96.20 Unspecified Escherichia coli [E. coli] as the cause of diseases classified elsewhere; I25.2 Old myocardial infarction; J44.9 Chronic obstructive pulmonary disease, unspecified; Z20.822 Contact with and (suspected) exposure to COVID-19; Z87.440 Personal history of urinary (tract) infections; Z79.82 Long term (current) use of aspirin; Z79.899 Other long term (current) drug therapy
CPT/HCPCS: 36415; 36600; 70450; 71045; 71250; 74176; 80048; 80053; 80076; 80307; 81001; 82077; 82140; 82803; 82947; 83605; 83690; 83735; 83880; 84100; 84439; 84443; 84484; 85025; 85610; 87040; 87086; 87088; 87186; 87635; 92526; 92610; 93005; 94002; 96361; 96365; 96366; 96367; 97162; 99285; J1335; J2185; J3370

== ENCOUNTER 2022-05-24 10:04 | Emergency (ER) | payer MEDICARE, OTHER, SELFPAY ==
[2022-05-24 10:21] VITALS: BP 124/76; BP 128/80; PULSE 86; PULSE 94; RESP 20; TEMP 37; O2SAT 98; O2SAT 99; BMI 24.2
--- NOTE | 2022-05-24 10:37 | ED.FEMALEGU ---
HPI - Female Genitourinary General Chief complaint: Urogenital-Female Stated complaint: BEDBOUND @ HOME W/SACRAL PAIN FROM WOUND PER EMS Time Seen by Provider: 05/24/22 10:36 Source: patient Mode of arrival: ambulatory Limitations: no limitations History of Present Illness HPI Narrative: Patient has MS and could not move left side. The patient has a sacral wound and so she needed a dumas catheter. Patient states that the catheter kept falling out and she is concerned that the urinary incontinence is going to infect her wound. Related Data Home Medications Medication Instructions Recorded Confirmed aspirin 81 mg chewable tablet 81 mg PO DAILY 02/11/22 03/02/22 baclofen 20 mg tablet 20 mg PO BEDTIME 02/11/22 03/02/22 baclofen 20 mg tablet 20 mg PO QID 02/11/22 03/02/22 carisoprodol 350 mg tablet 350 mg PO TID PRN Muscle Spasm 02/11/22 03/02/22 diazepam 10 mg tablet 10 mg PO BEDTIME 02/11/22 03/02/22 simvastatin 40 mg tablet 40 mg PO BEDTIME 02/11/22 03/02/22 zolpidem 10 mg tablet 10 mg PO BEDTIME 02/11/22 03/02/22 Previous Rx's Medication Instructions Recorded clotrimazole 1 % topical cream 1 appl topical BID 7 days #30 grams 02/13/22 nitrofurantoin macrocrystal 100 mg 100 mg PO BID #20 caps 03/04/22 capsule (Macrodantin) Allergies Allergy/AdvReac Type Severity Reaction Status Date / Time No Known Allergies Allergy Verified 04/18/20 09:07 Review of Systems Review of Systems: Yes all other systems are reviewed and are negative Neurologic: Denies Sensory deficit (Neuro) [facility] Past Medical History Medical History Adult failure to thrive Bacteriuria COPD (chronic obstructive pulmonary disease) Diabetes Femoral distal fracture Fracture of left tibial plateau Frequent falls Gram-positive cocci bacteremia Hemiparesis of left nondominant side Hyperlipidemia Hypertension Left hemiparesis Left humeral fracture Multiple sclerosis Multiple sclerosis NSTEMI (non-ST elevated myocardial infarction) Physical deconditioning Physical deconditioning Polysubstance abuse Pyuria Seizure disorder Urinary retention UTI (urinary tract infection) UTI (urinary tract infection) UTI (urinary tract infection) Weakness Weakness Surgical History No pertinent past surgical history Family History Family History Other Adopted Social History Social History Household Members: Spouse Housing: Unknown / Unable to assess Do you presently have visiting nurse or other home services: Yes Unable to assess alcohol history related to: Unknown Alcohol intake: never Patient Tobacco Use Status: Tobacco use Unknown Tobacco use type: Cigarette Cigarette Packs Per Day: 0.5 Cigarettes Per Day: 1 Smoked in Last 30 Days: Yes Second Hand Smoke Exposure: No Use of substances other than those prescribed or required for medical reasons: No Substance Use Type: Opiates Advance Directives: Yes Advance Directives on File: Yes Advance Directives Date on File: 04/10/20 service: No Current occupational status: retired and disabled Physical Exam Vital Signs: Vital Signs: Last Vital Signs Temp 98.6 F 05/24/22 10:21 Pulse 86 05/24/22 10:21 Resp 20 05/24/22 10:21 BP 124/76 05/24/22 10:21 Pulse Ox 99 05/24/22 10:21 O2 Del Method 05/24/22 10:21 BMI result Body Mass Index 24.2 Const: Other: chronically ill Nutritional Appearance: average body habitus Orientation/consciousness: oriented to person and patient oriented x3 Limitations: no limitations HEENT: Head: Yes normal to inspection Ears: external ears normal General nose exam: Normal external nose present Mouth: Normal oral and palatal mucosa present and oropharynx normal Throat: Yes posterior oropharynx normal Eyes: General: appearance normal, both eyes and all related structures Neck: Other: supple Neck: Yes normal visual inspection Chest: Chest palpation & inspection: normal inspection of the chest Resp: Auscultation: clear to auscultation bilaterally Cardio: Jugular venous distension: no JVD Rate: regular rate Rhythm: regular rhythm Heart sounds: S1 normal heart sound present and S2 normal heart sound present GI: Inspection: Yes normal to inspection Palpation (GI): Soft to palpation, nontender and No hepatosplenomegaly present Auscultation: normal bowel sounds : General: Yes no CVA tenderness Back/Spine/Pelvis: Back: no CVA tenderness Skin: Other: left sacral decubedi stage 2. Diffuse psoriasis Neuro: Other: left sided hemiparesis General: oriented to person and patient oriented x3 Cranial nerves: Yes CN's II-XII intact bilaterally Sensory Exam: No Sensory deficit (Neuro) Extrem: General: Yes normal to inspection Psych: Appearance: grossly normal Course Reevaluation(s) Reevaluation #1: dumas placed, decubedi dressed will dc home Time: 12:06 Discharge Plan Discharge Clinical Impression: Multiple sclerosis, Decubitus ulcer of sacral region, stage 2 Patient Disposition: Home, Self-Care Instructions: Dumas Catheter Placement and Care (ED) Prescriptions: No Action carisoprodol 350 mg Tablet 350 mg PO TID PRN (Reason: Muscle Spasm) simvastatin 40 mg Tablet 40 mg PO BEDTIME baclofen 20 mg Tablet 20 mg PO QID baclofen 20 mg Tablet 20 mg PO BEDTIME aspirin 81 mg Tablet,Chewable 81 mg PO DAILY diazepam 10 mg Tablet 10 mg PO BEDTIME zolpidem 10 mg Tablet 10 mg PO BEDTIME clotrimazole 1 % Cream 1 appl topical BID 7 Days Qty: 30 1RF Protocol: Apply to: Apply to: under b/l breasts nitrofurantoin macrocrystal [Macrodantin] 100 mg capsule 100 mg PO BID Qty: 20 0RF Rx Instructions: must administer with a meal/food Referrals: Physician,José Manuel J [Primary Care Provider] - 1 week
--- NOTE | 2022-05-24 11:45 | PC.NURSE ---
pt brought to ed via ambulance to replace catheter that keeps falling out, she also reported a sacral wound and is worried that it may get infected. dumas replaced with 30cc balloon. pt tolerated well, denies pain. urine flowing appropriately.
--- NOTE | 2022-05-24 19:46 | PC.NURSE ---
I took over care of this patient at 1900. Pt is A&Ox4, GCS 15, no complaints of pain. Pt asked to check the dressing on a sore on her bottom. Dressing was in tact and properly placed. Pt does have red, dry skin patches across her back and legs. Pt was repositioned to comfort. Pt was given her dinner and began eating without a problem.
[2022-05-24 20:13] VITALS: BP 114/67; PULSE 100; RESP 15; TEMP 37.3; O2SAT 94
[2022-05-24 21:46] VITALS: BP 126/98; PULSE 94; RESP 15; TEMP 37.1; O2SAT 95
[2022-05-24 23:39] VITALS: BP 98/55; PULSE 104; RESP 17; TEMP 36.7; O2SAT 94
[2022-05-25] MEDS: Zolpidem Tartrate 5 MG TABLET 10 MG PO (01:16)
[2022-05-25 03:04] LABS: COVID-19 Test Negative (Negative)
[2022-05-25 05:25] VITALS: BP 113/69; PULSE 99; RESP 14; TEMP 36.2; O2SAT 92
--- NOTE | 2022-05-25 05:42 | MHC.EDTECH ---
pt morning vitals were taken and documented
[2022-05-25] MEDS: Baclofen 20 MG TABLET PO (08:01)
[2022-05-25 09:32] VITALS: BP 113/69; PULSE 99; RESP 18; O2SAT 94
--- NOTE | 2022-05-25 09:35 | MHC.EDTECH ---
pt assisted with bed kearney, pt cleaned and bedding changed. pt sat up in bed and set up with breakfast.
--- NOTE | 2022-05-25 10:04 | MHC.CM.ED ---
Addendum entered by Maritza Martin 05/25/22 10:10: Received return telephone call from patient's , Otoniel. Otoniel made aware patient will be leaving ER at 1030am. Otoniel agreeable to d/c plan. Original Note: Received case management consult over the weekend. Patient came to the ER due to issues with her dumas and sacral wound. Work up essentially negative. Patient is well known to case management. Met with patient in regards to discharge planning. Patient lives with her Otoniel. Otoniel recently suffered from a CVA. Patient is wheelchair bound at baseline and is active with [facility]. Patient has long standing history of MS. PCP verified as Dr Shannon. Patient is declining the need for short term rehab at this time. Patient is requesting to return home via BLS with resumption of [facility]. ESTUARDO made aware. BLS booked for 1030am. Patient, Dilia HERNANDEZ and Blair LONGO aware. Attempted to notify patient's via telephone at [phone]. No answer. Unable to leave a message. Continue to monitor for d/c needs.
== END 2022-05-25 10:43 | disposition home or self-care (01) ==
PROVIDERS: Emergency Provider Emergency Medicine; PCP Internal Medicine
DX: G35 Multiple sclerosis (principal); L89.152 Pressure ulcer of sacral region, stage 2; Z79.899 Other long term (current) drug therapy; F17.210 Nicotine dependence, cigarettes, uncomplicated; Z71.6 Tobacco abuse counseling; Z20.822 Contact with and (suspected) exposure to COVID-19
CPT/HCPCS: 51702; 87635; 99284

== ENCOUNTER 2022-08-05 11:32 | Emergency (ER) | payer OTHER, MEDICARE, SELFPAY ==
[2022-08-05 11:45] VITALS: BP 142/74; BP 147/77; PULSE 80; PULSE 86; RESP 16; TEMP 36.5; O2SAT 100; O2SAT 98; BMI 29.9
--- NOTE | 2022-08-05 12:50 | ED.GENADULT ---
HPI - General Adult General Chief complaint: Wound/Laceration Stated complaint: Pain L side buttock x 4days per EMS Time Seen by Provider: 08/05/22 11:36 Source: patient Mode of arrival: EMS Limitations: no limitations History of Present Illness HPI narrative: Patient is a 61-year-old female who presents to the emergency department via EMS. When asked why she contacted EMS she states that she is having pain to her left buttock due to a pressure ulcer. Reports onset to be about 4-5 days ago. The pain today was prevented her from being able to get out of the chair, therefore she called EMS. Additionally, she has [facility] services, and they have expressed concern about possible urinary tract infection for her as she has been having urinary frequency. She does report the use of incontinence pad/briefs, states that she does feel the urge to go to the bathroom, but due to her immobility with MS and her urinary frequency she has been experiencing urge incontinence. She states she is not interested in receiving evaluation for short-term rehab. She states that she came here today because she would like to have a cushion and dressing placed to her buttock daily, in to be evaluated for urinary tract infection. She denies fevers, chills, back pain, flank pain, bowel dysfunction, numbness or tingling of the extremities, injury/fall, chest pain, shortness of breath. Related Data Home Medications Medication Instructions Recorded Confirmed aspirin 81 mg chewable tablet 81 mg PO DAILY 02/11/22 03/02/22 baclofen 20 mg tablet 20 mg PO QID 02/11/22 05/25/22 carisoprodol 350 mg tablet 350 mg PO TID PRN Muscle Spasm 02/11/22 05/25/22 diazepam 10 mg tablet 10 mg PO BEDTIME 02/11/22 05/25/22 simvastatin 40 mg tablet 40 mg PO BEDTIME 02/11/22 05/25/22 zolpidem 10 mg tablet 10 mg PO BEDTIME 02/11/22 05/25/22 Previous Rx's Medication Instructions Recorded cefuroxime axetil 250 mg tablet 250 mg PO BID #14 tabs 08/05/22 triamcinolone acetonide 0.1 % 1 appl topical BID #80 grams 08/05/22 topical cream Allergies Allergy/AdvReac Type Severity Reaction Status Date / Time No Known Allergies Allergy Verified 04/18/20 09:07 Review of Systems Review of Systems: Yes all other systems are reviewed and are negative [facility] Past Medical History Attestation statement: The following information was validated with the patient. Source: old records reviewed Medical History Adult failure to thrive Bacteriuria COPD (chronic obstructive pulmonary disease) Diabetes Femoral distal fracture Fracture of left tibial plateau Frequent falls Gram-positive cocci bacteremia Hemiparesis of left nondominant side Hyperlipidemia Hypertension Left hemiparesis Left humeral fracture Multiple sclerosis Multiple sclerosis NSTEMI (non-ST elevated myocardial infarction) Physical deconditioning Physical deconditioning Polysubstance abuse Pyuria Seizure disorder Urinary retention UTI (urinary tract infection) UTI (urinary tract infection) UTI (urinary tract infection) Weakness Weakness Surgical History No pertinent past surgical history Family History Family History Other Adopted Social History Social History Household Members: Spouse Housing: Unknown / Unable to assess Do you presently have visiting nurse or other home services: Yes Unable to assess alcohol history related to: Unknown Alcohol intake: never Patient Tobacco Use Status: Tobacco use Unknown Tobacco use type: Cigarette Cigarette Packs Per Day: 0.5 Cigarettes Per Day: 1 Second Hand Smoke Exposure: No Substance Use Type: Opiates Advance Directives: Yes Advance Directives on File: Yes Advance Directives Date on File: 04/10/20 service: No Current occupational status: retired and disabled Physical Exam ED Vital Signs: Vital Signs - 24 hr 08/05/22 11:45 08/05/22 15:35 Temperature 97.7 F 97.7 F Pulse Rate 86 88 Respiratory Rate 16 14 Blood Pressure 147/77 H 141/86 H Pulse Oximetry 98 92 Oxygen Delivery Method Room Air Room Air BMI result Body Mass Index 29.9 Appearance: Alert.?Oriented to person, place and time. No acute distress.?Normal affect. Eyes: Pupils equal, round and reactive to light.? ENT: Pharynx normal.?? Neck: Normal inspection.? Neck supple.?? CVS: Heart sounds normal. Normal heart rate and rhythm.? Pulses normal.?? Respiratory: No respiratory distress.? Lung sounds clear to auscultation bilaterally?? Abdomen: Soft and non-tender. Normoactive bowel sounds. Skin: Skin warm and dry.? Normal skin color.? 0.5 cm round stage II pressure ulcer to left buttock near midline. Diffuse psoriatic eruption to torso and extremities Extremities: No lower extremity edema.? Neuro: Moves all extremities spontaneously. Sensation intact bilaterally. Course Reevaluation(s) Reevaluation #1: CBC without without leukocytosis. CMP unremarkable. Urinalysis revealing pyuria and nitrates, 2+ bacteria concerning for urinary tract infection, reviewed these findings with patient, she will receive a dose of oral antibiotics while in the emergency department, a prescription will be sent to the pharmacy for remainder. In addition, sent prescription for triamcinolone cream for psoriasis. Our case management department was able to reach out to patient's visiting nurse services, they will arrange for evaluation in the next 24 hours and schedule dressing changes accordingly. Patient is happy with this plan. At this time stable for discharge. Time: 16:35 Medications Administered Discontinued Medications Generic Name Dose Route Start Last Admin Trade Name Freq PRN Reason Stop Dose Admin Cefuroxime Axetil 250 mg 08/05/22 16:35 08/05/22 17:27 Cefuroxime Axetil 250 Mg Tablet PO 08/05/22 16:36 250 mg ONCE ONE Administration Medical Decision Making Medical Decision Making [facility] Narrative: Patient is a 61-year-old female with past medical history of COPD, diabetes, left hemiparesis secondary to multiple sclerosis, hyperlipidemia, hypertension, NSTEMI, seizure disorder who presents to the emergency department for evaluation of left buttock wound and possible urinary tract infection as noted in HPI. Physical examination reveals A blanchable stage II pressure ulcer to the left buttock near midline 0.5 cm and round. Barrier cream applied and padded dressing to cover. Will obtain CBC and CMP in addition to urinalysis to evaluate for urinary tract infection. Differential Diagnosis Differential Diagnoses: The differential diagnosis associated with the presentation includes Admission/Observation Consideration of admission/observation: Escalation of care including admission/observation considered Given her reported concerns of deconditioning, inability to get out of her chair today I considered observation and physical therapy evaluation/case management evaluation for possible short-term rehab however patient declines. Lab Data [facility] Lab Attestation statement: I reviewed the patient's lab results. 08/05/22 13:53 08/05/22 13:53 Labs: Lab Results 08/05/22 08/05/22 08/05/22 Range/Units 13:53 13:53 15:31 WBC 5.3 (4.8-10.8) X10*3/uL RBC 4.41 (4.20-5.50) X10*6/uL Hgb 13.3 (12.0-16.0) g/dl Hct 41.3 (37.0-47.0) % MCV 93.7 (80.0-98.0) fL MCH 30.2 (27.0-33.0) pg MCHC 32.2 (31.0-35.0) g/dl RDW 14.9 (11.0-16.0) % Plt Count 326 (160-400) X10*3/uL MPV 9.0 L (9.4-12.3) fL Immature Gran % (Auto) 0.6 H (0.0-0.4) % Neut % (Auto) 78.0 H (45-73) % Lymph % (Auto) 10.3 L (20-40) % [place] % (Auto) 8.6 (2-11) % Eos % (Auto) 1.9 (0-4) % Baso % (Auto) 0.6 (0-2) % Lymph # (Auto) 0.6 L (1.2-4.9) X10*3/uL [place] # (Auto) 0.5 (0.1-1.2) X10*3/uL Eos # (Auto) 0.1 (0.0-0.4) X10*3/uL Baso # (Auto) 0.0 (0.0-0.2) X10*3/uL Abs Immat Gran (auto) 0.03 (0.00-0.03) X10*3/uL Absolute Neuts (auto) 4.2 (2.0-8.3) x10*3/uL Absolute Nucleated RBC 0.000 (0.0-0.012) X10*3/uL Nucleated RBC % (auto) 0.0 (0.0-0.2) /100WBC Sodium 144 (135-145) mmol/L Potassium 4.4 D (3.3-5.1) mmol/L Chloride 107 (96-108) mmol/L Carbon Dioxide 29 (22-29) mmol/L Anion Gap 12 (12-20) BUN 14 (9-16) mg/dL Creatinine 0.70 (0.5-1.4) mg/dL Estim Creat Clear Calc 86.8 Estimated GFR > 60 Random Glucose 84 (60-115) mg/dL Calcium 8.9 (8.4-10.2) mg/dL Urine Color Yellow Urine Appearance Clear Urine pH 5.5 (5.0-9.0) Ur Specific [place] 1.025 (1.005-1.025) Urine Protein Negative (Neg-Trace) mg/dL Urine Glucose (UA) Negative (Negative) mg/dL Urine Ketones 15 (Negative) mg/dL Urine Blood Negative (Negative) Urine Nitrite Positive H (Negative) Ur Leukocyte Esterase Small (1+) H (Negative) Urine RBC 0-2 (0-2) /HPF Urine WBC 0-5 (0-5) /HPF Ur Squamous Epith Cells 0-2 (0-2) /HPF Urine Bacteria 2+ (None Seen) Hyaline Casts 0-2 (0-2) /LPF External Record Review External record reviewed: Office record Discharge Plan Discharge Clinical Impression: Urinary tract infection, Psoriasis Patient Disposition: Home, Self-Care Instructions: Urinary Tract Infection in Women (ED), Psoriasis (ED) Additional Instructions: A prescription for antibiotic to cover urinary tract infection was sent to your pharmacy, you received a dose while in the emergency department, please 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 Please complete the entire course. A prescription for triamcinolone cream was sent to your pharmacy to use for your psoriasis. Our case management was able to get in touch with your [facility] services, they are going to arrange for evaluation of your buttock wound in the next 24 hours and appropriate dressing change scheduling. You may return back to the emergency department with any new or worsening symptoms or concerns. Prescriptions: New cefuroxime axetil 250 mg tablet 250 mg PO BID Qty: 14 0RF triamcinolone acetonide 0.1 % cream 1 appl topical BID Qty: 80 0RF No Action carisoprodol 350 mg Tablet 350 mg PO TID PRN (Reason: Muscle Spasm) simvastatin 40 mg Tablet 40 mg PO BEDTIME baclofen 20 mg Tablet 20 mg PO QID aspirin 81 mg Tablet,Chewable 81 mg PO DAILY diazepam 10 mg Tablet 10 mg PO BEDTIME zolpidem 10 mg Tablet 10 mg PO BEDTIME Referrals: Link Ventura PA [Primary Care Provider] - Interventions: ED Discharge Assessment Last Done: 08/05/22 17:56 Discharge Date/Time: 08/05/22 17:57
[2022-08-05 14:01] LABS: MANUAL DIFF FLAG NO
[2022-08-05 14:02] LABS: Basophils Percent Auto 0.6 % (0-2); Eosinophils Absolute Auto 0.1 X10*3/uL (0.0-0.4); Eosinophils Percent Auto 1.9 % (0-4); Hematocrit 41.3 % (37.0-47.0); Hemoglobin 13.3 g/dl (12.0-16.0); Imm Gran Abs Auto 0.03 X10*3/uL (0.00-0.03); Imm Gran Pct Auto 0.6 % (0.0-0.4); Lymphocytes Absolute Auto 0.6 X10*3/uL (1.2-4.9); Lymphocytes Percent Auto 10.3 % (20-40); Mean Corpuscular HGB Conc 32.2 g/dl (31.0-35.0); Mean Corpuscular Hemoglobin 30.2 pg (27.0-33.0); Mean Corpuscular Volume 93.7 fL (80.0-98.0); Monocytes Absolute Auto 0.5 X10*3/uL (0.1-1.2); Monocytes Percent Auto 8.6 % (2-11); Neutrophils Absolute Auto 4.2 x10*3/uL (2.0-8.3); Platelet Count 326 X10*3/uL (160-400); Red Blood Count 4.41 X10*6/uL (4.20-5.50); Red Cell Distribution Width 14.9 % (11.0-16.0); White Blood Count 5.3 X10*3/uL (4.8-10.8)
[2022-08-05 14:22] LABS: Anion Gap 12 (12-20); Blood Urea Nitrogen 14 mg/dL (9-16); Calcium 8.9 mg/dL (8.4-10.2); Carbon Dioxide 29 mmol/L (22-29); Chloride 107 mmol/L (96-108); Creatinine Clr Calc Pharmacy 86.8; Estimated Glomerular Filt Rate > 60; Glucose Random 84 mg/dL (60-115); Potassium 4.4 mmol/L (3.3-5.1); Sodium 144 mmol/L (135-145)
--- NOTE | 2022-08-05 14:34 | MHC.CM.ED ---
Addendum entered by Maritza Martin 08/05/22 17:12: Received telephone call from Mali Talbot at [facility]. Patient has been active with their agency since 07/08/2022. Receives 2 hours/day, 5 days a week of home health services through [facility]. Mali Talbot made aware of ER visit and patient's c/o coccyx wound. ER d/c faxed to Mali Talbot. [facility] will try to arrange an office visit for her within the next 48 hours. If they are unable to arrange an office visit, a nurse will come to patient's house. Lauren AVENDAÑO aware. [facility] booked for 6pm Original Note: Received case management consult from Lauren AVENDAÑO. Patient is well known to due to freq ER visits and admissions. Per Lauren AVENDAÑO, patient is requesting wound care for her coccyx wound. Patient states she active with [facility]. T/W attempted to call [facility] via telephone at [phone]. Left message requesting return call. In the past, patient has been active with [facility], [facility], [facility], and [facility]. Patient is not active with any of these agencies at this time. Still waiting for return telephone call from [facility]. Continue to monitor for d/c needs.
--- NOTE | 2022-08-05 15:22 | PC.NURSE ---
top case assembler/facility phone numbers [facility]: [phone] [facility]: [phone]
[2022-08-05 15:35] VITALS: BP 141/86; PULSE 88; RESP 14; TEMP 36.5; O2SAT 92
[2022-08-05 15:42] LABS: Appearance Urine Clear; Color Urine Yellow; Glucose Urine UA Negative (Negative); Leukocyte Esterase Urine Small (1+) (Negative); Nitrite Urine Positive (Negative); PH 5.5 (5.0-9.0); Specific Gravity - Urine 1.025 (1.005-1.025); UMIC TRIGGER UACC YES; Urine Blood Negative (Negative); Urine Ketones 15 mg/dL (Negative); Urine Protein Negative (Neg-Trace)
[2022-08-05 15:58] LABS: RBC Urine 0-2 /HPF (0-2); Squamous Epithelial Cell Urine 0-2 /HPF (0-2); UACC Culture Trigger YES; WBC Urine 0-5 /HPF (0-5)
[2022-08-05 15:59] LABS: Bacteria Urine 2+ (None Seen); Hyaline Casts Urine 0-2 /LPF (0-2)
== END 2022-08-05 17:57 | disposition home or self-care (01) ==
PROVIDERS: Nurse Practitioner Family; Emergency Provider Emergency Medicine; PCP Physician Assistant Medical
DX: N39.0 Urinary tract infection, site not specified (principal); L40.9 Psoriasis, unspecified; E11.9 Type 2 diabetes mellitus without complications; I10 Essential (primary) hypertension; E78.5 Hyperlipidemia, unspecified; G35 Multiple sclerosis; R29.6 Repeated falls; F17.210 Nicotine dependence, cigarettes, uncomplicated; Z79.02 Long term (current) use of antithrombotics/antiplatelets; Z79.82 Long term (current) use of aspirin; Z79.899 Other long term (current) drug therapy
CPT/HCPCS: 36415; 80048; 81001; 85025; 87086; 99284

== ENCOUNTER 2022-12-07 00:49 | Emergency (ER) | payer OTHER, MEDICARE, SELFPAY ==
[2022-12-07 00:51] VITALS: BP 140/80; PULSE 84; O2SAT 98
[2022-12-07 01:02] VITALS: BMI 25.9
--- NOTE | 2022-12-07 01:43 | ED.WOUNDLAC ---
HPI - Wound/Laceration General Chief Complaint: Wound/Laceration Stated Complaint: Wound Time Seen by Provider: 12/07/22 01:07 Source: patient Mode of arrival: EMS Limitations: no limitations History of Present Illness HPI narrative: Patient comes to the emergency room complaining of a deep laceration to the right lower extremity. Patient states that she was opening a box about delivered by [employer], patient was trying to open it with a knife, accidentally slipped and lacerated her right lower extremity. Patient denies being on blood thinners. Related Data Home Medications Medication Instructions Recorded Confirmed aspirin 81 mg chewable tablet 81 mg PO DAILY 02/11/22 03/02/22 baclofen 20 mg tablet 20 mg PO QID 02/11/22 05/25/22 carisoprodol 350 mg tablet 350 mg PO TID PRN Muscle Spasm 02/11/22 05/25/22 diazepam 10 mg tablet 10 mg PO BEDTIME 02/11/22 05/25/22 simvastatin 40 mg tablet 40 mg PO BEDTIME 02/11/22 05/25/22 zolpidem 10 mg tablet 10 mg PO BEDTIME 02/11/22 05/25/22 Previous Rx's Medication Instructions Recorded cefuroxime axetil 250 mg tablet 250 mg PO BID #14 tabs 08/05/22 triamcinolone acetonide 0.1 % 1 appl topical BID #80 grams 08/05/22 topical cream Allergies Allergy/AdvReac Type Severity Reaction Status Date / Time No Known Allergies Allergy Verified 04/18/20 09:07 Review of Systems Review of Systems: Constitutional : No Weight loss, No Fever, No Chills, No Night Sweats, No Fatigue, No Malaise ENT/Mouth : No Hearing loss, No Ear Pain, No Nasal Congestion, No Sinus Pain, No Hoarseness, No sore throat, No Rhinorrhea, No Swallowing Difficulty Eyes: No Eye Pain, No Swelling, No Redness, No Foreign Body, No Discharge, No Vision Changes Cardiovascular : No Chest Pain, No SOB, No Dyspnea on Exertion, No Orthopnea, No Edema, No Palpitations Respiratory : No Cough, No Sputum, No Wheezing, No Smoke Exposure, No Dyspnea Gastrointestinal : No Nausea, No Vomiting, No Diarrhea, No Constipation, No abdominal Pain, No Hematochezia, No Melena Genitourinary : no irregular bleeding, No Dysuria, No Urinary Frequency, No Hematuria, No Urinary Incontinence, No Urgency, No Flank Pain, No Urinary Flow Changes, No Hesitancy Musculoskeletal : No joint pain, No Myalgias, No Joint Swelling Skin : Laceration to the right lower extremity Neuro : No Weakness, No Numbness, No Paresthesias, No Loss of Consciousness, No Dizziness, No Headache Psych : No Anxiety/Panic, No Depression, No SI/HI/AH/VH, No Social Issues, Heme/Lymph: No Bruising, No Bleeding,No Lymphadenopathy Endocrine : No Polyuria, No Polydipsia, No Temperature Intolerance [facility] Past Medical History Medical History Adult failure to thrive Bacteriuria COPD (chronic obstructive pulmonary disease) Diabetes Femoral distal fracture Fracture of left tibial plateau Frequent falls Gram-positive cocci bacteremia Hemiparesis of left nondominant side Hyperlipidemia Hypertension Left hemiparesis Left humeral fracture Multiple sclerosis Multiple sclerosis NSTEMI (non-ST elevated myocardial infarction) Physical deconditioning Physical deconditioning Polysubstance abuse Pyuria Seizure disorder Urinary retention UTI (urinary tract infection) UTI (urinary tract infection) UTI (urinary tract infection) Weakness Weakness Surgical History No pertinent past surgical history Family History Family History Other Adopted Social History Social History Household Members: Spouse Housing: Unknown / Unable to assess Do you presently have visiting nurse or other home services: Yes Unable to assess alcohol history related to: Unknown Alcohol intake: never Patient Tobacco Use Status: Tobacco use Unknown Tobacco use type: Cigarette Cigarette Packs Per Day: 0.5 Cigarettes Per Day: 1 Second Hand Smoke Exposure: No Substance Use Type: Opiates Advance Directives: Yes Advance Directives on File: Yes Advance Directives Date on File: 04/10/20 service: No Current occupational status: retired and disabled Physical Exam Vital Signs: Vital Signs: BMI result Body Mass Index 25.9 Const: Other: Appearance: Alert. Oriented X3. No acute distress. Eyes: Pupils equal, round and reactive to light. ENT: Pharynx normal. Neck: Normal inspection. Neck supple. No lymph nodes noted. No crepitus CVS: Normal heart rate and rhythm. Pulses normal. Normal S1 and S2 Respiratory: No respiratory distress. Breath sounds normal. No Wheezing. No rales Abdomen: Soft and nontender. No rigidity. No distention. Skin: Vivi 7 cm laceration to the lateral aspect of the right calf, bleeding controlled Extremities: No lower extremity edema. No Lacerations. No Rash Neuro: Oriented X 3. No motor deficit. No sensory deficit. Moving all extremities. No slurred speech. CN 2 through 12 grossly intact Psych: calm, cooperative, normal affect Medical Decision Making Medical Decision Making MDM Narrative: -patient tolerated the laceration repair well. No complications Differential Diagnosis Differential Diagnoses: The differential diagnosis associated with the presentation includes (Laceration, cut) Procedures Laceration Laceration 1: Site: lower extremity Side (If applicable): right Size (cm): 7 Description: linear Depth: simple, single layer Local Anesthetic: lidocaine 1% and with epi Amount of anesthesia used (mL): 10 Pre-repair: wound explored Skin layer closed with: nylon Size (cm): 3-0 Number of sutures: 10 Technique: simple, interrupted Discharge Plan Discharge Clinical Impression: Laceration of skin of right lower leg Patient Disposition: Home, Self-Care Instructions: Laceration (ED) Additional Instructions: Your sutures need to be removed in 7-10 days. If you see any signs of infection such as redness, pus drainage, if you have fever chills, please return to the emergency room. Please follow-up with your primary care physician tomorrow. If you have any worsening or new symptoms, please return to the emergency room or call 911 Prescriptions: No Action carisoprodol 350 mg Tablet 350 mg PO TID PRN (Reason: Muscle Spasm) simvastatin 40 mg Tablet 40 mg PO BEDTIME baclofen 20 mg Tablet 20 mg PO QID aspirin 81 mg Tablet,Chewable 81 mg PO DAILY diazepam 10 mg Tablet 10 mg PO BEDTIME zolpidem 10 mg Tablet 10 mg PO BEDTIME cefuroxime axetil 250 mg tablet 250 mg PO BID Qty: 14 0RF triamcinolone acetonide 0.1 % cream 1 appl topical BID Qty: 80 0RF
--- NOTE | 2022-12-07 03:20 | PC.NURSE ---
waiting for transport home by EMS. sleeping comfortably. mental status at baseline. sutures to RLE.
--- NOTE | 2022-12-07 03:25 | MHC.EDTECH ---
call out to lucia to book transport back home at 0325, ETA given was 0411
[2022-12-07 04:40] VITALS: BP 125/70; PULSE 78; RESP 18; O2SAT 97
== END 2022-12-07 05:02 | disposition home or self-care (01) ==
PROVIDERS: Emergency Provider Emergency Medicine
DX: S81.811A Laceration without foreign body, right lower leg, initial encounter (principal); W26.0XXA Contact with knife, initial encounter; Y93.89 Activity, other specified; Y92.9 Unspecified place or not applicable; Y99.9 Unspecified external cause status
CPT/HCPCS: 12002; 99284

== ENCOUNTER 2023-03-21 12:07 | Emergency (ER) | payer OTHER, SELFPAY ==
--- NOTE | ~2023-03-21 | XR_ITS ---
EXAMINATION: XR RIBS, LEFT CLINICAL INFORMATION: Fall yesterday. COMPARISON: None available. TECHNIQUE: 3 views of the left ribs were obtained. FINDINGS: Lungs are clear. No consolidation, pneumothorax, or pleural effusion. The cardiomediastinal silhouette and pulmonary vasculature are normal. Osseous structures are unremarkable. Ribs are intact. No fractures are identified. XR/XR ribs LT min 3V w CXR1V IMPRESSION: Unremarkable chest examination.
[2023-03-21 12:18] VITALS: BP 140/90; PULSE 90; O2SAT 95
[2023-03-21 12:28] VITALS: BP 143/108; PULSE 83; RESP 18; TEMP 36.7; O2SAT 98; BMI 25.0
--- NOTE | 2023-03-21 14:22 | ED_ITS ---
HPI - Fall General Chief Complaint: Fall Stated Complaint: FELL OUT OF CHAIR LASTNIGHT Time Seen by Provider: 03/21/23 12:48 Source: patient and EMS Mode of arrival: EMS Limitations: no limitations History of Present Illness HPI Narrative: 62-year-old female history of MS and left hemiparesis patient mostly on electric scooter, patient was trying to reach out for something last night fell off the scooter landing on her left breast wall complaining of left chest wall pain. The pain is worse with movement and taking a deep breath, decline head injury or neck pain. No SOB, no abdominal pain, no lower extremities pain. Related Data Home Medications Medication Instructions Recorded Confirmed aspirin 81 mg chewable tablet 81 mg PO DAILY 02/11/22 03/02/22 baclofen 20 mg tablet 20 mg PO QID 02/11/22 05/25/22 carisoprodol 350 mg tablet 350 mg PO TID PRN Muscle Spasm 02/11/22 05/25/22 diazepam 10 mg tablet 10 mg PO BEDTIME 02/11/22 05/25/22 simvastatin 40 mg tablet 40 mg PO BEDTIME 02/11/22 05/25/22 zolpidem 10 mg tablet 10 mg PO BEDTIME 02/11/22 05/25/22 Previous Rx's Medication Instructions Recorded cefuroxime axetil 250 mg tablet 250 mg PO BID #14 tabs 08/05/22 triamcinolone acetonide 0.1 % 1 appl topical BID #80 grams 08/05/22 topical cream oxycodone 5 mg tablet 5 mg PO TID PRN pain #10 tabs 03/21/23 Allergies Allergy/AdvReac Type Severity Reaction Status Date / Time No Known Allergies Allergy Verified 04/18/20 09:07 Review of Systems Review of Systems: All other systems are reviewed and are negative Constitutional: Reports as per HPI and Reports no additional constitutional complaints Eyes: Reports as per HPI and Reports no additional eye complaints Reports system reviewed and no additional complaints, except as documented Cardiovascular: Reports as per HPI and Reports no additional cardiovascular complaints Respiratory: Reports as per HPI and Reports no additional respiratory complaints Gastrointestinal: Reports as per HPI and Reports no additional gastrointestinal complaints Genitourinary: Reports no additional female genitourinary complaints Musculoskeletal: Reports no additional musculoskeletal complaints Skin/Breast: Reports system reviewed and no additional complaints, except as docu Psychiatric: Reports no additional psychiatric complaints Endocrine: Reports no additional endocrine complaints Hematologic/Lymphatic: Reports no additional hematologic/lymphatic complaints Allergic/Immunologic: Reports no additional allergic/immunologic complaints Reports system reviewed and no additional complaints, except as documented and Reports Abnormal speech present [facility] Past Medical History Medical History Weakness Physical deconditioning UTI (urinary tract infection) Gram-positive cocci bacteremia Bacteriuria Pyuria UTI (urinary tract infection) Multiple sclerosis Hypertension Diabetes COPD (chronic obstructive pulmonary disease) Adult failure to thrive UTI (urinary tract infection) Urinary retention Weakness NSTEMI (non-ST elevated myocardial infarction) Physical deconditioning Seizure disorder Polysubstance abuse Hemiparesis of left nondominant side Hyperlipidemia Multiple sclerosis Frequent falls Left hemiparesis Fracture of left tibial plateau Left humeral fracture Femoral distal fracture Surgical History No pertinent past surgical history Family History Family History Other Adopted Social History Social History Household Members: Spouse Housing: Unknown / Unable to assess Do you presently have visiting nurse or other home services: Yes Unable to assess alcohol history related to: Unknown Alcohol intake: never Patient Tobacco Use Status: Tobacco use Unknown Tobacco use type: Cigarette Cigarette Packs Per Day: 0.5 Cigarettes Per Day: 1 Second Hand Smoke Exposure: No Substance Use Type: Opiates Advance Directives: Yes Advance Directives on File: Yes Advance Directives Date on File: 04/10/20 service: No Current occupational status: retired and disabled Physical Exam Vital Signs: Vital Signs: Last Vital Signs Temp 98.1 F 03/21/23 12:28 Pulse 83 03/21/23 12:28 Resp 18 03/21/23 12:28 BP 143/108 H 03/21/23 12:28 Pulse Ox 98 03/21/23 12:28 O2 Del Method Room Air 03/21/23 12:28 BMI result Body Mass Index 25.0 Vital signs have been reviewed and appear to be correct. Blood pressure elevated. Heart rate normal. Respiratory rate normal. Temperature normal. Oxygen saturation normal. Appearance: Alert. Oriented X3. No acute distress. Head: Normal external exam. Normocephalic. Atraumatic. No Casas signs noted. No raccoon eyes noted Eyes: PERRLA. EOMI. Conjunctiva and sclera normal. Eyelids normal. ENT: TM's Normal. Pharynx normal. Uvula midline. Moist mucous membranes. No trismus noted. No drooling noted. No muffled voice noted. Neck: Normal inspection. Neck supple. FROM. No adenopathy. Thyroid Normal. No meningeal signs. No neck mass noted. CVS: Normal heart rate and rhythm. Heart sound normal. No murmurs noted. Pulses normal throughout. Respiratory: No respiratory distress. Painless inspiration. Breath sounds normal. No wheezes/rales/rhonchi noted. Lateral chest wall pain, no step-off, no deformity. No accessory muscle usage noted or decreased air movement noted. Abdomen: Soft and nontender. Bowel sounds normal in all 4 quadrants. No distention noted. No organomegaly noted. No visible injury noted. Back: No CVA tenderness. Full range of motion noted. Skin: Skin warm and dry. Normal skin color. Normal skin turgor. No rashes/lesions/lacerations noted. Extremities: No lower extremity edema. Extremities exhibit normal range of motion. Extremities nontender. Neuro: Oriented X 3. Cranial nerve exam: II-XII are grossly intact No motor deficit. No sensory deficit. Reflexes normal. Course Reevaluation(s) Reevaluation #1: Left chest wall contusion, x-ray is showing no rib fracture, O2 sat and respiratory rate within normal, pain is controlled with oxycodone while in the emergency department will discharge patient home patient was instructed how to do the breathing exercises to prevent atelectasis and other complications. Time: 15:26 Medical Decision Making Differential Diagnosis Differential Diagnoses: The differential diagnosis associated with the presentation includes (Chest wall contusion, rib fracture, lung contusion, pleural effusion, pneumothorax.) Admission/Observation Consideration of admission/observation: Escalation of care including admission/observation considered Independent Interpretation I performed an independent interpretation of an: Plain X-Ray (Left trap and chest:Lungs are clear. No consolidation, pneumothorax, or pleural effusion. The cardiomediastinal silhouette and pulmonary vasculature are normal. Osseous structures are unremarkable. Ribs are intact. No fractures are) Radiology Impression Discussion of test interpretation with radiology: I have reviewed the radiologist's reading. Discharge Plan Discharge Clinical Impression: Chest wall contusion Qualifiers: Encounter type: initial encounter Laterality: left Qualified Code(s): S20.212A - Contusion of left front wall of thorax, initial encounter Patient Disposition: Home, Self-Care Instructions: Rib Contusion (ED) Additional Instructions: Do breathing exercises as we discussed every 2 hours when you wake (take a deep breath hold for few seconds then exhale repeat 10 times every hour). Prescriptions: New oxycodone 5 mg tablet 5 mg PO TID PRN (Reason: pain) Qty: 10 0RF Rx Instructions: Partial Fill upon patient request. No Action carisoprodol 350 mg Tablet 350 mg PO TID PRN (Reason: Muscle Spasm) simvastatin 40 mg Tablet 40 mg PO BEDTIME baclofen 20 mg Tablet 20 mg PO QID aspirin 81 mg Tablet,Chewable 81 mg PO DAILY diazepam 10 mg Tablet 10 mg PO BEDTIME zolpidem 10 mg Tablet 10 mg PO BEDTIME cefuroxime axetil 250 mg tablet 250 mg PO BID Qty: 14 0RF triamcinolone acetonide 0.1 % cream 1 appl topical BID Qty: 80 0RF
[2023-03-21] MEDS: oxyCODONE HCl Immed Release 5 MG TABLET PO (15:40)
--- NOTE | 2023-03-21 15:47 | PC.NURSE ---
Patient medicated per AUG, ambulance booked to take patient back home today.
[2023-03-21 16:46] VITALS: BP 139/72; PULSE 88; RESP 18; TEMP 36.5; O2SAT 97
--- NOTE | 2023-03-21 16:46 | PC.NURSE ---
Patient stating that she needs to use the bathroom and would like to be straight cathed prior to leaving. Bladder scan showed approximately 413 ml in bladder. Provider ordered a straight cath on patient and 400 ml was drained from the bladder. Patient stated relief after procedure.
== END 2023-03-21 16:54 | disposition home or self-care (01) ==
PROVIDERS: Emergency Provider Emergency Medicine
DX: S20.212A Contusion of left front wall of thorax, initial encounter (principal); R07.81 Pleurodynia; G81.94 Hemiplegia, unspecified affecting left nondominant side; R51.9 Headache, unspecified; M54.2 Cervicalgia; F17.210 Nicotine dependence, cigarettes, uncomplicated; W19.XXXA Unspecified fall, initial encounter; Y93.9 Activity, unspecified; Y92.9 Unspecified place or not applicable; Y99.9 Unspecified external cause status; Z71.6 Tobacco abuse counseling; Z79.899 Other long term (current) drug therapy
CPT/HCPCS: 51701; 71101; 99283; 99284

== ENCOUNTER 2023-06-24 11:24 | Emergency (ER) | payer OTHER, SELFPAY ==
[2023-06-24] VITALS (8 sets, daily range): BP systolic 118–144; BP diastolic 70–97; PULSE 98–107; RESP 17–20; TEMP 36.8–37.3; O2SAT 95–99; BMI 26.5
--- NOTE | ~2023-06-24 | XR_ITS ---
EXAMINATION: PELVIS, LEFT FEMUR, LEFT TIB-FIB CLINICAL INFORMATION: Left-sided pelvic pain, left-sided femur pain, left-sided tib-fib pain status post fall COMPARISON: Left knee 04/18/2020 TECHNIQUE: Single view pelvis, 2 views femur, 2 views tib-fib FINDINGS: Pelvis: No pelvic fracture is seen. Femur: There is a healed distal left femoral metaphyseal fracture. No new acute fracture or bony destructive lesions are seen. Tib-fib: Probable old healed fractures involving the proximal tibial and fibular metaphyses. Vascular calcifications are seen. On the lateral view only, there is a defect in the posterior fibular cortex (see blair image) and a fracture in this location cannot be entirely excluded. XR/XR femur LT 2V IMPRESSION: 1. No evidence of an acute fracture involving the pelvis or femur. 2. Question of a fracture involving the posterior cortex of the fibula seen only on the lateral view. Dedicated full knee series may be useful for further evaluation if this is a clinical concern.
--- NOTE | ~2023-06-24 | US_ITS ---
EXAMINATION: US VENOUS ULTRASOUND WITH DOPPLER LOWER EXTREMITY, LEFT CLINICAL INFORMATION: Left lower extremity pain COMPARISON: None available. TECHNIQUE: Ultrasound of the deep veins is performed from the hip to the calf with compression sonography and color and pulse Doppler assessment. Spectral analysis with color-flow imaging is performed. FINDINGS: There is normal venous compression and respiratory variation and augmented flow. The visualized common femoral vein, superficial femoral vein, profunda femoral vein, popliteal vein, and the trifurcation region shows no evidence of deep venous thrombosis. There is no significant popliteal fossa cyst. If the patient's symptoms persist, followup ultrasound in 5 days 7 days might be of value to exclude proximal propagation from a non-visualized calf vein. US/US venous duplex LE LT IMPRESSION: No DVT demonstrated in the left lower extremity.
--- NOTE | ~2023-06-24 | XR_ITS ---
EXAMINATION: LEFT ANKLE, LEFT FOOT CLINICAL INFORMATION: Pain and injury. Paralyzed on left side COMPARISON: Left tib-fib 06/24/2023 TECHNIQUE: 3 views left ankle, 3 views left foot FINDINGS: There is generalized osteopenia probably secondary to disuse. No acute fractures or dislocations are seen. No joint effusion is present. No bony destructive lesions are seen. XR/XR foot LT min 3V IMPRESSION: No evidence of an acute osseous injury. Generalized osteopenia.
--- NOTE | ~2023-06-24 | XR_ITS ---
EXAMINATION: LEFT ANKLE, LEFT FOOT CLINICAL INFORMATION: Pain and injury. Paralyzed on left side COMPARISON: Left tib-fib 06/24/2023 TECHNIQUE: 3 views left ankle, 3 views left foot FINDINGS: There is generalized osteopenia probably secondary to disuse. No acute fractures or dislocations are seen. No joint effusion is present. No bony destructive lesions are seen. XR/XR ankle LT min 3V IMPRESSION: No evidence of an acute osseous injury. Generalized osteopenia.
--- NOTE | ~2023-06-24 | CT_ITS ---
EXAMINATION: CT of the left knee without contrast. INDICATION: Left knee pain COMPARISON: The radiographs from the same date. TECHNIQUE: Multidetector volumetric imaging was obtained through the left knee without contrast material. Multiplanar reformatted images in coronal and sagittal orientations were submitted. This CT examination was performed using dose optimization techniques as appropriate, variously including the following: *Automated exposure control *Adjustment of mA and/or kV according to patient size (this includes techniques or standardized protocols for targeted exams where dose is matched to indication/reason for exam; i.e. extremities or head) *Use of iterative reconstruction technique DLP: 280 mGy-cm FINDINGS: There is a chronic, healed fracture deformity of the distal femoral metaphysis with chronic posteromedial displacement of the united distal femoral fragment as well as probable apex anterior angulation. Additionally, there is an old healed fracture of the tibial plateau with minimal articular cortical irregularity at the lateral tibial plateau posteriorly There is an acute transverse fracture of the fibular neck with slight impaction along the posterior cortex. No intra-articular extension. The patella is intact. Bones are osteopenic. No additional acute fractures are identified. There is mild nonuniform chondral thinning at the patellofemoral and medial compartments, likely due to mild arthrosis. Insall-Salvati ratio measures 0.6, consistent with patella baja. No joint effusion or Aj's cyst. No muscle atrophy at the distal thigh. There is fatty replacement in the soleus muscle. Mild calcific atherosclerosis. CT/CT knee LT wo IV con IMPRESSION: 1. Acute, mildly impacted transverse fracture of the fibular neck. 2. Chronic, healed fractures of the distal femoral metaphysis and tibial plateau. 3. Mild arthrosis in the left knee. 4. No joint effusion or Aj's cyst. 5. Patella baja.
--- NOTE | ~2023-06-24 | XR_ITS ---
EXAMINATION: PELVIS, LEFT FEMUR, LEFT TIB-FIB CLINICAL INFORMATION: Left-sided pelvic pain, left-sided femur pain, left-sided tib-fib pain status post fall COMPARISON: Left knee 04/18/2020 TECHNIQUE: Single view pelvis, 2 views femur, 2 views tib-fib FINDINGS: Pelvis: No pelvic fracture is seen. Femur: There is a healed distal left femoral metaphyseal fracture. No new acute fracture or bony destructive lesions are seen. Tib-fib: Probable old healed fractures involving the proximal tibial and fibular metaphyses. Vascular calcifications are seen. On the lateral view only, there is a defect in the posterior fibular cortex (see blair image) and a fracture in this location cannot be entirely excluded. XR/XR pelvis 1-2V IMPRESSION: 1. No evidence of an acute fracture involving the pelvis or femur. 2. Question of a fracture involving the posterior cortex of the fibula seen only on the lateral view. Dedicated full knee series may be useful for further evaluation if this is a clinical concern.
--- NOTE | ~2023-06-24 | XR_ITS ---
EXAMINATION: PELVIS, LEFT FEMUR, LEFT TIB-FIB CLINICAL INFORMATION: Left-sided pelvic pain, left-sided femur pain, left-sided tib-fib pain status post fall COMPARISON: Left knee 04/18/2020 TECHNIQUE: Single view pelvis, 2 views femur, 2 views tib-fib FINDINGS: Pelvis: No pelvic fracture is seen. Femur: There is a healed distal left femoral metaphyseal fracture. No new acute fracture or bony destructive lesions are seen. Tib-fib: Probable old healed fractures involving the proximal tibial and fibular metaphyses. Vascular calcifications are seen. On the lateral view only, there is a defect in the posterior fibular cortex (see blair image) and a fracture in this location cannot be entirely excluded. XR/XR tibia fibula LT 2V IMPRESSION: 1. No evidence of an acute fracture involving the pelvis or femur. 2. Question of a fracture involving the posterior cortex of the fibula seen only on the lateral view. Dedicated full knee series may be useful for further evaluation if this is a clinical concern.
--- NOTE | 2023-06-24 11:48 | ED_ITS ---
HPI - General Adult General Chief complaint: Fall Stated complaint: L lower leg pain Time Seen by Provider: 06/24/23 11:48 Source: patient Mode of arrival: EMS Limitations: no limitations History of Present Illness HPI narrative: 62 yr old female with a past medical history of respiratory failure, adult failure to thrive, HLD, HTN, hypotonic neurogenic bladde, multiple sclerosis, falls, diabetes mellitus, left sided hemiparesis, DC, COPD, seizure, polysubstance abuse presents with lower leg pain after a fall yesterday morning. Patient states she tripped and fell getting out of bed yesterday morning over her scooter. She was in some pain but it was manageable at that time. Since then the pain has worsened to sharp 8/10 pain that is around the knee and radiates down in to the lower leg. Denies LOC, head strike or dizziness at the time of the fall. Denies fever, chills, chest pain, SOB, or tingling. Related Data Home Medications Medication Instructions Recorded Confirmed aspirin 81 mg chewable tablet 81 mg PO DAILY 02/11/22 06/24/23 carisoprodol 350 mg tablet 350 mg PO TID PRN Muscle Spasm 02/11/22 06/24/23 zolpidem 10 mg tablet 10 mg PO BEDTIME 02/11/22 06/24/23 atorvastatin 20 mg tablet 20 mg PO DAILY 06/24/23 06/24/23 cholecalciferol (vitamin D3) 25 25 mcg PO DAILY 06/24/23 06/24/23 mcg (1,000 unit) capsule (Vitamin D3) dimethyl fumarate 240 mg 240 mg PO BID 06/24/23 06/24/23 capsule,delayed release gabapentin 300 mg capsule 300 mg PO BID PRN Pain 06/24/23 06/24/23 tizanidine 4 mg tablet 4 mg PO BEDTIME 06/24/23 06/24/23 triamcinolone acetonide 0.1 % 1 appl topical BID PRN psorias 06/24/23 06/24/23 topical cream Allergies Allergy/AdvReac Type Severity Reaction Status Date / Time No Known Allergies Allergy Verified 04/18/20 09:07 Review of Systems 2 Review of Systems: Constitutional : No Weight loss, No Fever, No Chills, No Fatigue, No Malaise ENT/Mouth : No sore throat, No Rhinorrhea Eyes: No Eye Pain, No Swelling, No Redness Cardiovascular : No Chest Pain, No SOB, No Dyspnea on Exertion, No Orthopnea, No Edema, No Palpitations Respiratory : No Cough, No Sputum, No Wheezing Gastrointestinal : No Nausea, No Vomiting, No Diarrhea, No Constipation, No abdominal Pain, No Hematochezia, No Melena Genitourinary : No Dysuria, No Urinary Frequency, No Hematuria, Musculoskeletal : + left knee pain and swelling. No joint pain, No Myalgias, No Joint Swelling Skin : No Skin Lesions, No rash Neuro : No Weakness, No Numbness, No Dizziness, No Headache Psych : No Anxiety/Panic, No Depression Heme/Lymph: No Bruising, No Bleeding,No Lymphadenopathy Endocrine : No Polyuria, No Polydipsia All other systems reviewed and are negative Yes all other systems are reviewed and are negative [facility] Past Medical History Attestation statement: The following information was validated with the patient. Source: old records reviewed and nursing notes reviewed Onset Date is defined in the Problem List Problems that require an onset date and time if occurred within 24 hrs of arrival to the ED Aortic Dissection and Rupture; Neurologic impairment; Cardiopulmonary Arrest; Endotracheal Intubation; Insertion or Replacement of Mechanical Circulatory Assist Device Medical History Weakness Physical deconditioning UTI (urinary tract infection) Gram-positive cocci bacteremia Bacteriuria Pyuria UTI (urinary tract infection) Multiple sclerosis Hypertension Diabetes COPD (chronic obstructive pulmonary disease) Adult failure to thrive UTI (urinary tract infection) Urinary retention Weakness NSTEMI (non-ST elevated myocardial infarction) Physical deconditioning Seizure disorder Polysubstance abuse Hemiparesis of left nondominant side Hyperlipidemia Multiple sclerosis Frequent falls Left hemiparesis Fracture of left tibial plateau Left humeral fracture Femoral distal fracture Surgical History No pertinent past surgical history Family History Family History Other Adopted Social History Social History Household Members: Spouse Housing: Unknown / Unable to assess Do you presently have visiting nurse or other home services: Yes Unable to assess alcohol history related to: Unknown Alcohol intake: never Comment: overflow bed 10 Patient Tobacco Use Status: Tobacco use Unknown Tobacco use type: Cigarette Cigarette Packs Per Day: 0.5 Cigarettes Per Day: 1 Smoked in Last 30 Days: Yes Second Hand Smoke Exposure: No Use of substances other than those prescribed or required for medical reasons: No Substance Use Type: Opiates Advance Directives: Yes Advance Directives on File: Yes Advance Directives Date on File: 04/10/20 Patient : No service: No Current occupational status: retired and disabled Physical Exam ED Vital Signs: Vital Signs - 24 hr 06/24/23 12:02 06/24/23 12:09 06/24/23 12:09 Temperature 98.3 F Pulse Rate 100 Respiratory Rate 20 20 20 Blood Pressure 138/80 138/80 Pulse Oximetry 96 96 Oxygen Delivery Method Room Air Room Air 06/24/23 13:07 06/24/23 14:00 06/24/23 15:21 Temperature Pulse Rate 101 H 102 H 98 Respiratory Rate 20 18 18 Blood Pressure 144/82 H 118/97 H 131/72 Pulse Oximetry 97 97 97 Oxygen Delivery Method Room Air Room Air Room Air 06/24/23 17:26 06/24/23 19:18 Temperature 99.1 F Pulse Rate 100 107 H Respiratory Rate 17 18 Blood Pressure 122/70 137/78 Pulse Oximetry 95 97 Oxygen Delivery Method Room Air Room Air BMI result Body Mass Index 26.5 vss tachycardia 102 Appearance: Alert.? Oriented X3.? No acute distress.? Head: Normocephalic, atraumatic, no step-offs or deformities Eyes: Pupils equal, round and reactive to light.? Neck: Normal inspection.? Neck supple.? CVS: Normal heart rate and rhythm.? Pulses normal.? Respiratory: No respiratory distress.? Breath sounds normal.? Abdomen: Soft and nontender.? Skin: Skin warm and dry.? Normal skin color.? Normal skin turgor.? Extremities: + medial knee edema with moderate tenderness to palpation and movement. Pain palpable inferiorly 2-3 cm from the knee. No echymosis. No lower extremity edema.? No calf ttp. 5/5 strength to bilateral upper and lower extremities. Soft compartments of bilateral lower extremities even around the knee and calf. Back: No midline tenderness, no C-spine tenderness, full range of motion, no CVA tenderness bilaterally Neuro: Oriented X 3.? No motor deficit.? No sensory deficit. CN 2-12 intact Course Reevaluation(s) Reevaluation #1: CBC with leukocytosis likely secondary to fall. Chemistry unremarkable. Troponin negative. No DVT in left lower extremity. X-ray of left tib/fib no evidence of acute fracture involving the pelvis or femur. Question fracture involving the posterior cortex of the fibula seen only on the lateral view. Dedicated full knee series recommended however patient has difficulty with mobility therefore CT of the knee will be ordered. UA, CT pending. Sign out to Blair RODRIGUEZ Time: 16:57 Reevaluation #2: CT scan confirms transverse fibular neck fracture of left leg. Case discussed with Dr. Duff who states patient could be placed in boot and crutches. Patient has multiple sclerosis may be hard for patient to go home and walk around in boot. PT case management placed Time: 01:57 Medications Administered Generic Name Dose Route Start Last Admin Trade Name Freq PRN Reason Stop Dose Admin Oxycodone HCl 5 mg 06/24/23 20:46 06/25/23 00:16 Oxycodone Hcl Immed Release 5 Mg Tablet PO 5 mg Q6H PRN Administration Breakthrough Pain Discontinued Medications Generic Name Dose Route Start Last Admin Trade Name Freq PRN Reason Stop Dose Admin Hydromorphone HCl 0.5 mg 06/24/23 14:03 06/24/23 14:09 Hydromorphone Hcl 0.5 Mg/0.5 Ml Syringe IVPUSH 06/24/23 14:04 0.5 mg ONCE ONE Administration Protocol Hydromorphone HCl 0.5 mg 06/24/23 20:46 06/24/23 20:52 Hydromorphone Hcl 0.5 Mg/0.5 Ml Syringe IVPUSH 06/24/23 20:47 0.5 mg ONCE ONE Administration Protocol Morphine Sulfate 4 mg 06/24/23 12:58 06/24/23 13:05 Morphine Sulfate 4 Mg/Ml Cartridge IVPUSH 06/24/23 12:59 4 mg ONCE ONE Administration Protocol Medical Decision Making Medical Decision Making MDM Narrative: 62 yr old female with a past medical history of respiratory failure, adult failure to thrive, HLD, HTN, hypotonic neurogenic bladde, multiple sclerosis, falls, diabetes mellitus, left sided hemiparesis, DC, COPD, seizure, polysubstance abuse presents with lower leg pain after a fall yesterday morning. PE significant for edema of the medial knee that extends inferiorly 2-3cm. Most likely contusion vs fracture. Unlikely DVT, dislocation, compartment syndrome, arterial occlusion. No signs of traumatic injury to head, neck, chest, abd/pelvis no need for imaging. Plan labs, imaging Differential Diagnosis Differential Diagnoses: The differential diagnosis associated with the presentation includes Most likely contusion vs fracture. Unlikely DVT, dislocation, compartment syndrome, , arterial occlusion. No signs of traumatic injury to head, neck, chest, abd/pelvis no need for imaging. Admission/Observation Consideration of admission/observation: Escalation of care including admission/observation considered Lab Data MDM Lab Attestation statement: I reviewed the patient's lab results. CBC significant for leukocytosis with a left shift CMP unremarkable 06/24/23 12:29 06/24/23 12:29 Labs: Lab Results 06/24/23 Range/Units 12:29 WBC 11.0 H (4.8-10.8) X10*3/uL RBC 4.22 (4.20-5.50) X10*6/uL Hgb 12.6 (12.0-16.0) g/dl Hct 38.2 (37.0-47.0) % MCV 90.5 (80.0-98.0) fL MCH 29.9 (27.0-33.0) pg MCHC 33.0 (31.0-35.0) g/dl RDW 13.7 (11.0-16.0) % Plt Count 356 (160-400) X10*3/uL MPV 9.6 (9.4-12.3) fL Immature Gran % (Auto) 0.4 (0.0-0.4) % Neut % (Auto) 88.2 H (45-73) % Lymph % (Auto) 4.2 L (20-40) % [place] % (Auto) 6.8 (2-11) % Eos % (Auto) 0.1 (0-4) % Baso % (Auto) 0.3 (0-2) % Lymph # (Auto) 0.5 L (1.2-4.9) X10*3/uL [place] # (Auto) 0.8 (0.1-1.2) X10*3/uL Eos # (Auto) 0.0 (0.0-0.4) X10*3/uL Baso # (Auto) 0.0 (0.0-0.2) X10*3/uL Abs Immat Gran (auto) 0.04 H (0.00-0.03) X10*3/uL Absolute Neuts (auto) 9.7 H (2.0-8.3) x10*3/uL Absolute Nucleated RBC 0.000 (0.0-0.012) X10*3/uL Nucleated RBC % (auto) 0.0 (0.0-0.2) /100WBC Sodium 141 (135-145) mmol/L Potassium 4.1 (3.3-5.1) mmol/L Chloride 104 (96-108) mmol/L Carbon Dioxide 26 (22-29) mmol/L Anion Gap 15 (12-20) BUN 14 (9-16) mg/dL Creatinine 0.70 (0.5-1.4) mg/dL Estim Creat Clear Calc 83.7 Estimated GFR > 60 Random Glucose 124 H (60-115) mg/dL Calcium 9.5 D (8.4-10.2) mg/dL Magnesium 1.9 (1.6-2.6) mg/dL Total Bilirubin 0.3 (0.0-1.0) mg/dL AST 16 (5-31) U/L ALT 20 (0-31) U/L Alkaline Phosphatase 95 (39-117) U/L Troponin I High Sens < 2.7 (<3.5-17.0) ng/L Total Protein 7.3 (6.5-8.0) g/dL Albumin 4.2 (3.5-5.0) g/dL Independent Interpretation I performed an independent interpretation of an: EKG (Vent. Rate : 094 BPM Atrial Rate : 094 BPM P-R Int : 120 ms QRS Dur : 070 ms QT Int : 334 ms P-R-T Axes : 059 046 064 degrees QTc Int : 417 ms Normal sinus rhythm Nonspecific ST and T wave abnormality Abnormal ECG When compared with ECG of 02-MAR-2022 02:02, No signifi) and Plain X-Ray (XR/XR tibia fibula LT 2V IMPRESSION: 1. No evidence of an acute fracture involving the pelvis or femur. 2. Question of a fracture involving the posterior cortex of the fibula seen only on the lateral view. Dedicated full knee series may be useful for further evaluation if this is a clinical concer) Interpretation: EKG Vent. Rate : 094 BPM Atrial Rate : 094 BPM P-R Int : 120 ms QRS Dur : 070 ms QT Int : 334 ms P-R-T Axes : 059 046 064 degrees QTc Int : 417 ms Normal sinus rhythm Nonspecific ST and T wave abnormality Abnormal ECG When compared with ECG of 02-MAR-2022 02:02, No significant change was found Radiology Impression Discussion of test interpretation with radiology: I have reviewed the radiologist's reading. Radiologist Impression: XR/XR tibia fibula LT 2V IMPRESSION: 1. No evidence of an acute fracture involving the pelvis or femur. 2. Question of a fracture involving the posterior cortex of the fibula seen only on the lateral view. Dedicated full knee series may be useful for further evaluation if this is a clinical concern. External Record Review External record reviewed: Inpatient record and Outpatient record Chronic Conditions Patient?s care impacted by: Hypertension Discharge Plan Discharge Clinical Impression: Fall, Knee pain Patient Disposition: Still a Patient Prescriptions: No Action carisoprodol 350 mg Tablet 350 mg PO TID PRN (Reason: Muscle Spasm) aspirin 81 mg Tablet,Chewable 81 mg PO DAILY zolpidem 10 mg Tablet 10 mg PO BEDTIME atorvastatin 20 mg tablet 20 mg PO DAILY tizanidine 4 mg tablet 4 mg PO BEDTIME gabapentin 300 mg capsule 300 mg PO BID PRN (Reason: Pain) dimethyl fumarate 240 mg capsule,delayed release(DR/EC) 240 mg PO BID triamcinolone acetonide 0.1 % cream 1 appl topical BID PRN (Reason: psorias) cholecalciferol (vitamin D3) [Vitamin D3] 25 mcg (1,000 unit) capsule 25 mcg PO DAILY
--- NOTE | 2023-06-24 12:05 | PC.NURSE ---
Pt a&ox4 coming in after having a fall when attempting to transfer from bed to wheelchair. Pt has hx of ms, unable to move left side of body. 20G right ac iv placed, Pt able to make needs known. Tiffany care provided, boosted into stretcher.
[2023-06-24 12:34] LABS: MANUAL DIFF FLAG NO
[2023-06-24 12:38] LABS: Basophils Percent Auto 0.3 % (0-2); Eosinophils Percent Auto 0.1 % (0-4); Hematocrit 38.2 % (37.0-47.0); Hemoglobin 12.6 g/dl (12.0-16.0); Imm Gran Abs Auto 0.04 X10*3/uL (0.00-0.03); Imm Gran Pct Auto 0.4 % (0.0-0.4); Lymphocytes Absolute Auto 0.5 X10*3/uL (1.2-4.9); Lymphocytes Percent Auto 4.2 % (20-40); Mean Corpuscular Hemoglobin 29.9 pg (27.0-33.0); Mean Corpuscular Volume 90.5 fL (80.0-98.0); Mean Platelet Volume 9.6 fL (9.4-12.3); Monocytes Absolute Auto 0.8 X10*3/uL (0.1-1.2); Monocytes Percent Auto 6.8 % (2-11); Neutrophils Absolute Auto 9.7 x10*3/uL (2.0-8.3); Neutrophils Percent Auto 88.2 % (45-73); Platelet Count 356 X10*3/uL (160-400); Red Blood Count 4.22 X10*6/uL (4.20-5.50); Red Cell Distribution Width 13.7 % (11.0-16.0)
[2023-06-24 12:51] LABS: Alanine Aminotransferase 20 U/L (0-31); Albumin Level 4.2 g/dL (3.5-5.0); Alkaline Phosphatase 95 U/L (39-117); Anion Gap 15 (12-20); Aspartate Amino Transferase 16 U/L (5-31); Bilirubin Total 0.3 mg/dL (0.0-1.0); Blood Urea Nitrogen 14 mg/dL (9-16); Calcium 9.5 mg/dL (8.4-10.2); Carbon Dioxide 26 mmol/L (22-29); Chloride 104 mmol/L (96-108); Creatinine Clr Calc Pharmacy 83.7; Estimated Glomerular Filt Rate > 60; Glucose Random 124 mg/dL (60-115); Magnesium 1.9 mg/dL (1.6-2.6); Potassium 4.1 mmol/L (3.3-5.1); Sodium 141 mmol/L (135-145); Total Protein 7.3 g/dL (6.5-8.0)
[2023-06-24] MEDS: Morphine Sulfate 4 MG/ML CARTRIDGE IVPUSH (13:05)
--- NOTE | 2023-06-24 13:08 | PC.NURSE ---
Pt repositioned frequently for comfort. Morphine given as charted. VSS
[2023-06-24] MEDS: HYDROmorphone HCl 0.5 MG/0.5 ML SYRINGE IVPUSH ×2 (14:09→20:52)
--- NOTE | 2023-06-24 15:05 | ECG_ITS ---
Test Reason : fall Blood Pressure : / mmHG Vent. Rate : 094 BPM Atrial Rate : 094 BPM P-R Int : 120 ms QRS Dur : 070 ms QT Int : 334 ms P-R-T Axes : 059 046 064 degrees QTc Int : 417 ms Normal sinus rhythm Nonspecific ST and T wave abnormality - but there is also artifact Borderline ECG When compared with ECG of 02-MAR-2022 02:02, No significant change was found Referred By: Crista Urbina Electronically Signed By:LATRICIA STONE
[2023-06-24 15:37] LABS: Troponin-I High Sensitivity < 2.7 ng/L (<3.5-17.0)
--- NOTE | 2023-06-24 19:43 | PHA.MEDREC ---
Pharmacy Consult ? Medication Reconciliation Pharmacy has completed the medication reconciliation. Patient reported medication. sujatha Posadas CPhT
--- NOTE | 2023-06-24 20:44 | MHC.CM.ED ---
CM met with patient at request of Blair LONGO. DONTA spoke with ortho. Per ortho, boot and crutches. Pt is wheelchair bound due to left sided hemiparesis and MS. Injury is on left knee. Pt lives with her . Has wheelchair and hospital bed. Pt has 8 hours DESTINATION IMAGINATION COORDINATOR services provided by [facility]. HCP and [facility] on file. HCP/ Otoniel Valenzuela ([phone]) and [facility] is DNR/DNI, transfer to hospital, no hydration or dialysis. Pt states her has been in [facility] and will return home tomorrow. States her has 42 hours of TRAIN OPERATOR. States TRAIN OPERATOR helps them both. Pt is refusing STR. States you never get out of there . States she was in rehab for 8 weeks in the past. Pt is willing to have home services. CM convinced patient to have PT assessment in the morning and then CM could have a discussion about plan of care moving forward. Pt is agreeable. No referrals made at this time. CM following for d/c planning.
[2023-06-25] MEDS: oxyCODONE HCl Immed Release 5 MG TABLET PO ×4 (00:16→20:16)
[2023-06-25 06:04] VITALS: BP 140/67; PULSE 107; RESP 19; TEMP 36.5; O2SAT 92
--- NOTE | 2023-06-25 07:26 | PC.NURSE ---
assumed care of this pt at 0700. pt a+o x3, she requested pain meds for 8/10 L knee pain. prn pain med given as documented. will reassess effectiveness. no other complaints at this time.
[2023-06-25 07:28] VITALS: BP 115/55; PULSE 101; RESP 18; TEMP 36.6; O2SAT 95
--- NOTE | 2023-06-25 08:57 | MHC.EDTECH ---
PT ATE 100% OF HER BREAKFAST. 120CC
--- NOTE | 2023-06-25 09:33 | MHC.EDTECH ---
PT is washed up with clean linen for her bed. repositioned leg as much as she could. Cold ice pack was given. Purewick inserted and working.
[2023-06-25 10:00] VITALS: BP 126/63; PULSE 102; RESP 18; TEMP 36.4; O2SAT 95
[2023-06-25 10:42] VITALS: BP 115/55; PULSE 101; O2SAT 95
[2023-06-25] MEDS: Aspirin 81 MG TAB.CHEW PO (11:39)
[2023-06-25] MEDS: Cholecalciferol (Vitamin D3) 25 MCG TABLET PO (11:39)
[2023-06-25] MEDS: Atorvastatin Calcium 20 MG TABLET PO (11:44)
--- NOTE | 2023-06-25 12:36 | MHC.EDTECH ---
Pt ate 100% of her lunch and 240cc of fluids
--- NOTE | 2023-06-25 13:47 | MHC.CM.ED ---
Met with pt to discuss the results of PT eval which recommends STR d/t fibula fx. Ortho states walking boot and crutches however, pt is unable to physically use crutches and can stand and pivot only at baseline from W/C to chair and toilet. Pt adamantly declines rehab despite several discussions about home safety and limited supports (spouse is nonambulatory and has 44 hrs of personal MANAGER FINE care / week) She states she has 6 hours of MANAGER FINE care for herself. When asked how she will get herself to the toilet, she states she will use adult incontinent briefs until she is more mobile but didn't have a plan on who could provide incontinence care and reapply brief. She also didn't know who would be assisting with bed mobility at night or meal prep. Pt does not seem to grasp home safety needs and seems to be overestimating her abilities. Pt requesting to stay in ED for a few days until she feels stronger and able to position self without discomfort. Discussed w/ED provider who will speak with pt about reconsidering STR. ED CM to await discussion results but will initiate STR referrals in the interim.
[2023-06-25 14:00] VITALS: BP 123/54; PULSE 100; RESP 18; TEMP 36.2; O2SAT 95
--- NOTE | 2023-06-25 17:20 | MHC.EDTECH ---
Shabana requested to be changed care was done i put a brief on her
--- NOTE | 2023-06-25 17:23 | MHC.EDTECH ---
She ate 100% of her dinner
--- NOTE | 2023-06-25 18:48 | MHC.CM.ED ---
CM met with patient. Arabella rodriguez is reviewing. Additional 10 referrals made for STR. Pt has [facility], so facilities are limited. Pt is begrudgingly agreeable to STR as she understands that she really cannot care for herself as she usually does at home with the level of pain that she is having. Also understands that she cannot care for her , if she cannot care for herself and her has 42 hours/LABELING ASSOCIATE/wk.
[2023-06-25 20:02] VITALS: BP 137/71; PULSE 98; RESP 16; TEMP 36.3; O2SAT 94
[2023-06-25] MEDS: Zolpidem Tartrate 5 MG TABLET 10 MG PO (20:16)
[2023-06-25] MEDS: TiZANidine HCL 4 MG TABLET PO (20:16)
[2023-06-26 06:00] VITALS: BP 134/72; PULSE 100; RESP 20; TEMP 37.1; O2SAT 93
[2023-06-26] MEDS: oxyCODONE HCl Immed Release 5 MG TABLET PO ×4 (06:00→18:02)
--- NOTE | 2023-06-26 08:15 | MHC.EDTECH ---
Assisted patient onto bed kearney to urinate. Assisted patient off of bed kearney when finished. Patient resting comfortably at this time. Call silverio placed within reach.
[2023-06-26] MEDS: Aspirin 81 MG TAB.CHEW PO (08:18)
[2023-06-26] MEDS: Atorvastatin Calcium 20 MG TABLET PO (08:19)
[2023-06-26] MEDS: Cholecalciferol (Vitamin D3) 25 MCG TABLET PO (08:19)
--- NOTE | 2023-06-26 08:29 | MHC.EDTECH ---
Pt ate 100% of breakfast
[2023-06-26] MEDS: Acetaminophen 325 MG TABLET 650 MG PO ×3 (08:42→20:50)
[2023-06-26 14:43] VITALS: BP 109/51; PULSE 93; RESP 16; TEMP 36.9; O2SAT 93
--- NOTE | 2023-06-26 14:53 | MHC.CM.ED ---
Patient remains in ER overflow. Waiting to hear if [facility] is able to offer a bed. Continue to monitor for d/c needs.
--- NOTE | 2023-06-26 18:35 | PC.NURSE ---
MS med was brought into the overflow dept and pharmacy picked up the med to put our label on the bottle prior to us administering this medciation
--- NOTE | 2023-06-26 19:55 | MHC.EDTECH ---
Patient was having difficulty and pain when moving for bedpan, Purewick in place. I also spongebathed patient, used a wet shower cap, combed hair and braided for her. Pt requested ice water, pitcher given. SG
[2023-06-26 20:50] VITALS: BP 144/65; PULSE 94; RESP 20; TEMP 36.8; O2SAT 93
[2023-06-26] MEDS: Zolpidem Tartrate 5 MG TABLET 10 MG PO (20:50)
[2023-06-26] MEDS: TiZANidine HCL 4 MG TABLET PO (20:50)
--- NOTE | 2023-06-26 22:43 | PC.NURSE ---
pt resting comfortably with eyes closed, breathing even and unlabored. no apparent distress at this time. call jean claude w/in reach.
[2023-06-27] MEDS: oxyCODONE HCl Immed Release 5 MG TABLET PO ×3 (02:46→20:55)
--- NOTE | 2023-06-27 03:04 | PC.NURSE ---
purewick moved out of place, pt washed and changed. c/o 01/14 leg pain. pt medicated per MAR
[2023-06-27 05:10] VITALS: BP 158/82; PULSE 99; RESP 16; TEMP 36.7; O2SAT 92
[2023-06-27 07:50] VITALS: BP 124/66; PULSE 102; RESP 18; TEMP 36.8; O2SAT 94
--- NOTE | 2023-06-27 07:50 | PC.NURSE ---
PT IS A/O X 4 NO SOB/YAMILET NOTED SPEAKS IN FULL SENTENCES. PT C/O GEN BODY PAIN/DISC/SPASM. PT MED X 1 WITH GABAPENTIN AND SOMA. IV TO R AC D/C'D DUE TO LACK OF PATENCY. NO EDEMA NOTED. +CMS TO ANGELIQUE LOWER EXT. WILL CONTINUE TO MONITOR..
[2023-06-27] MEDS: Cholecalciferol (Vitamin D3) 25 MCG TABLET PO (07:58)
[2023-06-27] MEDS: Aspirin 81 MG TAB.CHEW PO (07:58)
[2023-06-27] MEDS: Atorvastatin Calcium 20 MG TABLET PO (07:58)
--- NOTE | 2023-06-27 08:00 | MHC.EDTECH ---
Patient was washed up and transitioned to a chair with a 1 asst. Patient was set up for breakfast and ate 80% of her meal.
[2023-06-27] MEDS: Acetaminophen 325 MG TABLET 650 MG PO ×2 (08:03→13:49)
[2023-06-27] MEDS: carisoprodoL 350 MG TABLET PO (08:04)
[2023-06-27] MEDS: Gabapentin 300 MG CAPSULE PO ×2 (08:05→20:55)
--- NOTE | 2023-06-27 08:32 | MHC.CM.PN ---
Addendum entered by Anny Hinkle RN 06/27/23 10:56: LUCIAN SALAS INTERESTED AND WILL FOLLOW UP W/[facility] TOMORROW 06/28, NO RESPONSE FROM [facility] SINCE 06/25. Original Note: PT REMAINS BOARDING IN ED, CM AWAITING RESPONSE FROM [facility], NO OTHER INTEREST AT THIS TIME, CM WILL CONT TO FOLLOW.
--- NOTE | 2023-06-27 08:45 | MHC.EDTECH ---
Patient stated that she was wet. staff was able to change her while in the chair and washed her up again. Patients purewick was replaced and mesh underwear were put on to keep it in place. Patient is currently resting.
--- NOTE | 2023-06-27 11:55 | PC.NURSE ---
Lunch tray came and set up. Patient eating lunch now.
--- NOTE | 2023-06-27 12:44 | MHC.EDTECH ---
Patient ate 90% of her lunch.
--- NOTE | 2023-06-27 13:45 | PC.NURSE ---
PT C/O 8/10 L LOWER EXT/KNEE. MED X 1 WITH OXYCODONE 5MG AND APAP 650MG PO.
[2023-06-27] MEDS: Triamcinolone Acet 0.1 % Cream 15 GM TUBE 1 APPL TOPICAL (13:48)
[2023-06-27 14:00] VITALS: BP 112/65; PULSE 96; RESP 20; TEMP 36.9; O2SAT 95
--- NOTE | 2023-06-27 16:09 | PC.NURSE ---
Patient requesting water which was provided for her. Patient calm and cooperative laying in her bed watching TV at this time.
[2023-06-27] MEDS: TiZANidine HCL 4 MG TABLET PO (20:55)
[2023-06-27] MEDS: Zolpidem Tartrate 5 MG TABLET 10 MG PO (20:55)
[2023-06-27 22:51] VITALS: RESP 16
[2023-06-28] MEDS: oxyCODONE HCl Immed Release 5 MG TABLET PO ×3 (02:09→16:57)
[2023-06-28 02:54] VITALS: BP 118/60; PULSE 93; RESP 16; TEMP 36.9; O2SAT 95
--- NOTE | 2023-06-28 07:51 | MHC.CM.ED ---
Addendum entered by Maritza Martin 06/28/23 14:04: Received telephone call from Uriel at [facility]. Per Uriel, [facility] is not contracted with their company. [facility] company will allow out of network auth. Referrals made via [facility]. Addendum entered by Maritza Martin 06/28/23 13:01: [facility] does not have a bed. Spoke with Lauren at [facility]. They are reviewing clinical info now. Original Note: Patient remains in ER overflow. Clinical updates sent to facilities still following patient: [facility], [facility] and [facility]. Continue to monitor for d/c needs.
[2023-06-28] MEDS: Aspirin 81 MG TAB.CHEW PO (08:55)
[2023-06-28] MEDS: Atorvastatin Calcium 20 MG TABLET PO (08:55)
[2023-06-28] MEDS: Cholecalciferol (Vitamin D3) 25 MCG TABLET PO (08:56)
[2023-06-28] MEDS: Gabapentin 300 MG CAPSULE PO ×2 (09:01→20:57)
--- NOTE | 2023-06-28 09:26 | PC.NURSE ---
assumed care of pt at 0700. pt a&o x4, pleasant, calm, and cooperative. pt hygiene completed and pt ate breakfast. medicated per aug with AM and pain prn meds per aug. pt resting quietly lucila, in no apparent distress. rr even/unlabored. call silverio within reach. plan of care ongoing.
--- NOTE | 2023-06-28 09:28 | MHC.EDTECH ---
pt was washed up, hair washed, and braided into a ponytail. purewick is working well. pt is now laying down resting.
--- NOTE | 2023-06-28 09:29 | MHC.EDTECH ---
PT ate 100% of her breakfast. 240cc of juice
[2023-06-28] MEDS: Triamcinolone Acet 0.1 % Cream 15 GM TUBE 1 APPL TOPICAL ×2 (09:36→21:00)
--- NOTE | 2023-06-28 10:00 | MHC.EDTECH ---
PT had a medium brown bm. Cleaned up and relaxing in bed.
--- NOTE | 2023-06-28 10:48 | MHC.EDTECH ---
Pt requested to get up into recliner chair. Purewick in place, chair alarm in place, bedside table next to PT. No concerns at this time.
--- NOTE | 2023-06-28 12:16 | MHC.EDTECH ---
PT ate all of her lunch. 300cc of fluids. PT is still sitting in recliner relaxing.
[2023-06-28 13:50] VITALS: BP 126/73; PULSE 96; RESP 16; O2SAT 96
[2023-06-28] MEDS: Acetaminophen 325 MG TABLET 650 MG PO (16:58)
--- NOTE | 2023-06-28 17:01 | PC.NURSE ---
pt medicated per mar with oxycodone and tylenol for pain. pt being set up for dinner.
--- NOTE | 2023-06-28 19:50 | MHC.CM.ED ---
CM met with patient about 1620 to discuss STR and bed offer at [facility]. Pt very teary. Pt states she doesn't want to go to rehab and not so far. CM had extensive conversation with patient regarding her ability to care for herself at home. Pt admits that she needs help to move from bed to chair and will have very limited help at home. States her cannot help her. Pt tells CM she does not know how she will get into her scooter, but still wants to go home. Pt called her husbands COMPUTER APPLICATIONS DEVELOPER, who also encouraged her to go to rehab, as she cannot care for both of them. CM explained that going home is not a safe discharge plan, as what will she do once the ambulance leaves her in a chair or her bed? Pt agrees that she cannot help herself and needs more COMPUTER APPLICATIONS DEVELOPER help at home. Pt states she called her daycare director at [place] to request more COMPUTER APPLICATIONS DEVELOPER hours. Pt understands that it will take time to arrange more services. Pt is very teary. CM will return to speak with patient regarding STR. CM spoke with patient again about 1715. Pt is now agreeable to STR and will accept a bed, but is still hopeful that [facility] will offer at bed. Pt admits to being very fearful of going to a facility she knows nothing about and so far ([facility]). CM will review facility photos on FB with patient. CM again met with patient about 1900. Bed offer accepted, if still available, and requested facility go for auth. CM reviewed photos and reviews of facility with patient.Reviewed both 5 star and 2 star ratings. Pt seems much calmer with STR option now. Aware that CM will wait for auth from insurance. CM will follow for discharge planning.
--- NOTE | 2023-06-28 20:13 | MHC.EDTECH ---
Nurse and this word processor technician provided patient care for patient soiled, changed purewick, boost patient and repositioned patient to right side. This word processor technician brought patient a fresh pitcher of ice water, jacquelyn crackers, and ice cream.
[2023-06-28] MEDS: Zolpidem Tartrate 5 MG TABLET 10 MG PO (20:57)
[2023-06-28] MEDS: TiZANidine HCL 4 MG TABLET PO (20:58)
[2023-06-28 22:00] VITALS: BP 97/59; PULSE 101; RESP 16; TEMP 36.5; O2SAT 97
[2023-06-29 01:34] VITALS: BP 107/61; PULSE 87
--- NOTE | 2023-06-29 01:35 | MHC.EDTECH ---
Patient requested her PRN. this tech informed the RN. Per RN to please update BP, due to the last one was a little low. RN Aware
--- NOTE | 2023-06-29 01:42 | MHC.EDTECH ---
While the RN went to get the patient's PRN, Patient C/O being cold, i gathered and gave her a warm blanket
[2023-06-29] MEDS: Acetaminophen 325 MG TABLET 650 MG PO (01:43)
[2023-06-29] MEDS: oxyCODONE HCl Immed Release 5 MG TABLET PO ×2 (01:44→09:05)
[2023-06-29 06:00] VITALS: BP 147/71; PULSE 101; RESP 15; TEMP 36.3; O2SAT 94
--- NOTE | 2023-06-29 07:41 | PC.NURSE ---
patient is resting in bed, respirations equal and unlabored, shows no signs of distress
[2023-06-29] MEDS: Cholecalciferol (Vitamin D3) 25 MCG TABLET PO (08:06)
[2023-06-29] MEDS: Aspirin 81 MG TAB.CHEW PO (08:07)
[2023-06-29] MEDS: Gabapentin 300 MG CAPSULE PO (08:13)
[2023-06-29] MEDS: Atorvastatin Calcium 20 MG TABLET PO (08:13)
--- NOTE | 2023-06-29 09:27 | PC.NURSE ---
patient made this nurse aware that she is having pain in the left foot, pedal pulses present, skin pwd. left foot appears to be swollen, not red or warm to the touch. medicated utilizing prn per mar, patient provider aware.
--- NOTE | 2023-06-29 09:44 | MHC.EDTECH ---
pt was found incontinent of stool, and felt wet with purewick. pt was kam cleaned, dried, clean linen given, new purewick and fresh brief given. pt is now comfortable in bed, belongings within reach
--- NOTE | 2023-06-29 10:18 | MHC.CM.PN ---
Addendum entered by Ledy Thomas 06/29/23 11:40: Pt cleared and transport booked for 1200 hours pt, nurse and provider aware Original Note: [facility] has accepted pt and has insurance auth. Pt currently in imaging with an ortho consult pending. Once pt is cleared, BLS transport will be arranged.
--- NOTE | 2023-06-29 11:24 | MHC.EDTECH ---
crutches and knee immobilizer were provided to pt at bedside and will be going with pt upon transfer to rehab facility, therefore pt was not crutch trained, nor was knee immobilizer placed on pt with orders from [employer]
[2023-06-29 11:31] VITALS: BP 124/75; PULSE 92; RESP 16; TEMP 37; O2SAT 94
--- NOTE | 2023-06-29 12:28 | PC.NURSE ---
patient left with ems at 1215
--- NOTE | 2023-06-29 17:13 | MHC.CM.ED ---
Received tiger text from DAVY Burton regarding [facility] Pt brought in her own medication for MS Salome Whiteate. Pharmacy was contacted and the medication was in the overflow unit. Cm contacted patients , Otoniel, who is homebound with C[employer] NURSE OPERATING ROOM's and is unable to help. Venita Quintanilla and Anisha pharmacy intake coordinator aware. Anisha will bring medication to facility tomorrow. DAVY called facility and spoke with Stanislaw HERNANDEZ. Stanislaw is aware and will be expecting medication tomorrow around 4pm. Pt is in room 420.
== END 2023-06-29 12:29 | disposition skilled nursing facility (03) ==
PROVIDERS: Physician Assistant; Emergency Provider Emergency Medicine
DX: S89.92XA Unspecified injury of left lower leg, initial encounter (principal); M79.605 Pain in left leg; R26.2 Difficulty in walking, not elsewhere classified; R60.0 Localized edema; R94.31 Abnormal electrocardiogram [ECG] [EKG]; R10.2 Pelvic and perineal pain; W06.XXXA Fall from bed, initial encounter; Y93.9 Activity, unspecified; Y92.9 Unspecified place or not applicable; Y99.8 Other external cause status; Z79.899 Other long term (current) drug therapy
CPT/HCPCS: 36415; 72170; 73552; 73590; 73610; 73630; 73700; 80053; 83735; 84484; 85025; 93005; 93971; 96374; 96375; 96376; 97163; 99285; J1170; J2270

== ENCOUNTER → 2023-06-24 15:05 | Outpatient (BNV) | payer OTHER, SELFPAY | PROVIDERS: Emergency Provider Emergency Medicine; Visit Provider Internal Medicine | DX: R94.31 Abnormal electrocardiogram [ECG] [EKG] (principal) | CPT/HCPCS: 93010 ==

== ENCOUNTER 2023-07-16 09:55 | Outpatient (AMB) | payer OTHER, SELFPAY ==
--- NOTE | 2023-07-16 10:22 | MHC.OFFVIS ---
Intake Vital Signs 07/16/23 10:25 Height 5 ft 6 in Weight 150 lb BMI 24.2 Intake Visit Reasons: FC - Left Fibula Fracture 06/24/23 Intake Note: Shabana frey 62 year old female presents today in a stretcher for an ER follow up of left fibula fx, DOI 06/24/23. Patient reports that she fell injuring her left leg, she presented to [facility] the following day where xrays were taken and referred to orthopedics. Currently she is doing well, states mild pain at night. Hx of muscle spasms Allergies No Known Allergies Allergy (Verified 07/16/23 10:25) HPI FC - Left Fibula Fracture 06/24/23 HPI Details 62-year-old female presents to the office today for an injury she sustained to her left leg. She is nonambulatory due to her MS and paraplegia on the left side. She states she fell on June 24 landing on the left side. She was seen in the emergency department and x-rays were obtained of her lower extremity which showed a nondisplaced proximal fibular fracture. There is also evidence of a healed distal fibular fracture. She denies pain. [facility] Medical History Weakness Physical deconditioning UTI (urinary tract infection) Gram-positive cocci bacteremia Bacteriuria Pyuria UTI (urinary tract infection) Multiple sclerosis Hypertension Diabetes COPD (chronic obstructive pulmonary disease) Adult failure to thrive UTI (urinary tract infection) Urinary retention Weakness NSTEMI (non-ST elevated myocardial infarction) Physical deconditioning Seizure disorder Polysubstance abuse Hemiparesis of left nondominant side Hyperlipidemia Multiple sclerosis Frequent falls Left hemiparesis Fracture of left tibial plateau Left humeral fracture Femoral distal fracture Surgical History No pertinent past surgical history Family History Other Adopted Social History Household Members: Spouse Housing: Unknown / Unable to assess Do you presently have visiting nurse or other home services: Yes Unable to assess alcohol history related to: Unknown Alcohol intake: never Comment: overflow bed 10 Patient Tobacco Use Status: Tobacco use Unknown Tobacco use type: Cigarette Cigarette Packs Per Day: 0.5 Cigarettes Per Day: 1 Second Hand Smoke Exposure: No Substance Use Type: Opiates Advance Directives Date on File: 04/10/20 service: No Current occupational status: retired and disabled Review of Systems Const All systems reviewed & are unremarkable except as noted in HPI and below Physical Exam Vital Signs: BMI result Body Mass Index 24.2 Const General: cooperative and no acute distress Orientation/consciousness: patient oriented x3 Resp Effort & Inspection: normal respiratory effort and able to speak in complete sentences Cardio Peripheral pulses: Peripheral pulses 2+ throughout Neuro General: patient oriented x3 Extrem Other: Left leg is normal to inspection there is an abrasion over the left knee there is no erythema drainage or swelling. She has mild tenderness over the proximal fibula. Full range of motion of the knee. Calf supple nontender neurovascularly intact. Results Reviewed Results Reviewed: X-rays of the left tib-fib obtained in the office today show a nondisplaced fracture through the proximal fibula with stable appearance compared to previous films. Assessment & Plan Assessment & Plan (1) Fracture, fibula, proximal: Code(s): S82.839A - Other fracture of upper and lower end of unspecified fibula, initial encounter for closed fracture Qualifiers: Encounter type: initial encounter Fracture type: closed Fracture morphology: other fracture Laterality: left Qualified Code(s): S82.832A - Other fracture of upper and lower end of left fibula, initial encounter for closed fracture Plan: I explained to the patient this will heal on its own with no surgical intervention. Typically would have patients where a tall boot and weightbear as tolerated however she is nonambulatory and paraplegic therefore we will not place her in a boot today. She will perform activities as tolerated. I did offer her an appointment in 6 weeks for another x-ray however she prefers if there is any concerns she will contact our office otherwise follow-up as needed. Orders: Orders XR tibia fibula LT 2V Today M79.605 - Pain in left leg Coding Level of Care Code Est Pt Level 3 (16948) Diagnoses Other closed fracture of proximal end of left fibula, initial encounter S82.832A Encounter type: initial encounter Fracture type: closed Fracture morphology: other fracture Laterality: left
[2023-07-16 10:25] VITALS: BMI 24.2
== END 2023-07-16 10:54 | disposition home or self-care (01) ==
PROVIDERS: Visit Provider Physician Assistant
DX: S82.832A Other fracture of upper and lower end of left fibula, initial encounter for closed fracture (principal)
CPT/HCPCS: 99213

== ENCOUNTER 2023-07-16 12:51 | Outpatient (REF) | payer OTHER, SELFPAY ==
--- NOTE | ~2023-07-16 | XR_ITS ---
EXAMINATION: XR TIBIA AND FIBULA, LEFT CLINICAL INFORMATION: Pain COMPARISON: Left knee radiograph from : AP and lateral views of the left tibia and fibula were obtained. FINDINGS: Decreased bone mineral density which decreases sensitivity for fracture evaluation. Mildly displaced fracture of the proximal fibular metadiaphysis. Correlation with point tenderness. Chronic fracture deformity of the distal femoral diaphysis. Healed tibial plateau fracture. Joint space alignment are otherwise maintained. Soft tissues are unremarkable. Atherosclerotic calcifications are noted. XR/XR tibia fibula LT 2V IMPRESSION: 1. Decreased bone mineral density which decreases sensitivity for fracture evaluation. 2. Mildly displaced fracture of the proximal fibular metadiaphysis. Correlation with point tenderness. 3. Chronic fracture deformity of the distal femoral diaphysis. 4. Healed tibial plateau fracture.
== END 2023-07-16 12:52 | disposition home or self-care (01) ==
LOC: HO.HOSX 12:51
PROVIDERS: Visit Provider Physician Assistant
DX: S82.832A Other fracture of upper and lower end of left fibula, initial encounter for closed fracture (principal)
CPT/HCPCS: 73590